=== PATIENT | female | born 1995 | race Caucasian/White ===

== ENCOUNTER → 2024-08-14 | Outpatient (CLI) | payer MEDICAID, SELFPAY ==
[2024-08-17 21:06] LABS: Chlamydia By Nucleic Acid AMP Negative (Negative); Gonococcus By Nucleic Acid AMP Negative (Negative)
[2024-08-21 12:45] LABS: HPV Reflexed? NOT INDICATED
== END | disposition home or self-care (01) ==
LOC: LABSPEC 16:07
PROVIDERS: Referring Provider Obstetrics & Gynecology; Visit Provider Obstetrics & Gynecology
DX: O09.90 Supervision of high risk pregnancy, unspecified, unspecified trimester (principal); Z12.4 Encounter for screening for malignant neoplasm of cervix; Z3A.00 Weeks of gestation of pregnancy not specified
CPT/HCPCS: 87086; 87088; 87491; 87591; 88175; G0145

== ENCOUNTER → 2024-08-27 | Outpatient (CLI) | payer MEDICAID, SELFPAY ==
[2024-08-27 17:23] LABS: Absolute Lymphocyte Count 1.96 X10^3/uL (0.83-4.51); Absolute Neutrophil Count 8.1 X10^3/uL (2.0-7.7); Basophil# 0.06 X10^3/uL; Basophil% 0.5 % (0-1); Eosinophil# 0.19 X10^3/uL; Eosinophils% 1.7 % (0-5); Hemoglobin 12.1 g/dL (12.0-15.0); Lymphocyte # 1.96 X10^3/ul (0.83-4.51); Lymphocyte % 17.9 % (19-41); Mean Corp Hgb Conc 32.7 g/dL (32-36); Mean Corpuscular Hgb 29.4 pg (27.0-32.0); Mean Corpuscular Volume 89.8 fL (81-99); Mean Platelet Vol. 9.6 fl (6.2-12.0); Monocyte# 0.65 X10^3/uL; Monocyte% 5.9 % (0-10); NRBC Flagged by Analyzer 0 % (0-5); Neutrophil # 8.05 X10^3/uL (2.7-7.7); Neutrophil % 73.5 % (47-70); Platelet Count 339 K/mm3 (150-450); RBC Distribution Width CV 13.3 % (11.6-14.6); RBC Distribution Width SD 43.9 fl (35.1-43.9); Red Blood Count 4.12 M/mm3 (4.2-5.4)
[2024-08-27 17:30] LABS: ALB/GLOB Ratio 1.1 RATIO (0.9-2.4); AST(SGOT) 12 U/L (15-37); Alanine Aminotransfer ALT/SGPT 14 U/L (13-56); Albumin, Serum 3.6 g/dL (3.2-5.0); Alkaline Phosphatase 62 U/L (45-117); Anion Gap 7 (5-15); BUN 7 mg/dL (7-18); BUN/Creat Ratio 13.3 RATIO (10-20); Chloride 104 mmol/L (98-107); Creatinine, Serum 0.53 mg/dL (0.55-1.02); EST Glomerular Filtration Rate 147 mL/min (>60); Est Glom Filt Rate - Afr Amer 178 mL/min (>60); Globulin 3.4 g/dL (2.2-4.2); Glucose 93 mg/dL (74-106); Potassium 3.6 mmol/L (3.5-5.1); Sodium Level 137 mmol/L (136-145)
[2024-08-27 17:38] LABS: Protein, Urine (Random) 14.5 mg/dL (<11.9); Protein:Creat Ratio 141 mg/g CRE (0-200)
[2024-08-27 18:13] LABS: HIV - WCH Non-Reactive (Nonreactive); Hepatitis B Surface Antigen Non-Reactive (Nonreactive); Hepatitis C Antibody Non-Reactive (Nonreactive); Rubella IgG Reactive (Nonreactive); Syphilis Antibodies Non-reactive
== END | disposition home or self-care (01) ==
LOC: BWCLAB 15:24
PROVIDERS: Obstetrics & Gynecology; Referring Provider Advanced Practice Midwife; Visit Provider Advanced Practice Midwife
DX: O09.90 Supervision of high risk pregnancy, unspecified, unspecified trimester (principal); Z3A.00 Weeks of gestation of pregnancy not specified; Z87.59 Personal history of other complications of pregnancy, childbirth and the puerperium
CPT/HCPCS: 36415; 80053; 82570; 84156; 85025; 86703; 86762; 86780; 86803; 86850; 86900; 86901; 87340

== ENCOUNTER → 2024-09-11 | Outpatient (CLI) | payer MEDICAID, SELFPAY ==
[2024-09-11 14:24] LABS: Protein, Urine (Random) 10.6 mg/dL (0.0-12.0); Protein:Creat Ratio 123 mg/g CRE (0-200)
== END | disposition home or self-care (01) ==
LOC: LABSPEC 10:22
PROVIDERS: Referring Provider Advanced Practice Midwife; Visit Provider Advanced Practice Midwife
DX: Z34.82 Encounter for supervision of other normal pregnancy, second trimester (principal); Z87.59 Personal history of other complications of pregnancy, childbirth and the puerperium
CPT/HCPCS: 36415; 82570; 84156

== ENCOUNTER → 2024-11-25 | Outpatient (CLI) | payer MEDICAID, SELFPAY | END | disposition home or self-care (01) | LOC: BWCLAB 15:43 | PROVIDERS: Referring Provider Obstetrics & Gynecology; Visit Provider Obstetrics & Gynecology | DX: Z20.828 Contact with and (suspected) exposure to other viral communicable diseases (principal) | CPT/HCPCS: 36415; 86747 ==

== ENCOUNTER → 2024-12-23 | Outpatient (CLI) | payer MEDICAID, SELFPAY ==
[2024-12-23 13:25] LABS: Absolute Lymphocyte Count 1.87 X10^3/uL (0.83-4.51); Absolute Neutrophil Count 10.9 X10^3/uL (2.0-7.7); Basophil# 0.05 X10^3/uL; Basophil% 0.4 % (0-1); Eosinophil# 0.12 X10^3/uL; Eosinophils% 0.9 % (0-5); Hematocrit 30.4 % (37-47); Hemoglobin 10.3 g/dL (12.0-15.0); Lymphocyte # 1.87 X10^3/ul (0.83-4.51); Lymphocyte % 13.7 % (19-41); Mean Corp Hgb Conc 33.9 g/dL (32-36); Mean Corpuscular Volume 91.6 fL (81-99); Mean Platelet Vol. 9.6 fl (6.2-12.0); Monocyte# 0.66 X10^3/uL; Monocyte% 4.8 % (0-10); NRBC Flagged by Analyzer 0 % (0-5); Neutrophil # 10.85 X10^3/uL (2.7-7.7); Neutrophil % 79.4 % (47-70); Platelet Count 338 K/mm3 (150-450); RBC Distribution Width CV 13.3 % (11.6-14.6); RBC Distribution Width SD 44.3 fl (35.1-43.9); Red Blood Count 3.32 M/mm3 (4.2-5.4); White Blood Count 13.7 K/mm3 (4.4-11.0)
[2024-12-23 15:01] LABS: Glucose Challenge Gest 1H 50g 116 mg/dL (70-140); HIV Nonreactive (Nonreactive); Syphilis Antibodies Nonreactive (Nonreactive)
== END | disposition home or self-care (01) ==
PROVIDERS: Nurse Practitioner Women's Health; Referring Provider Obstetrics & Gynecology; Visit Provider Obstetrics & Gynecology
DX: O09.90 Supervision of high risk pregnancy, unspecified, unspecified trimester (principal); O99.891 Other specified diseases and conditions complicating pregnancy; R10.11 Right upper quadrant pain; Z13.1 Encounter for screening for diabetes mellitus; Z3A.00 Weeks of gestation of pregnancy not specified
CPT/HCPCS: 36415; 82950; 85025; 86703; 86780

== ENCOUNTER → 2025-02-26 | Outpatient (CLI) | payer MEDICAID, SELFPAY | END | disposition home or self-care (01) | LOC: LABSPEC 16:06 | PROVIDERS: Referring Provider Registered Nurse; Visit Provider Registered Nurse | DX: O09.93 Supervision of high risk pregnancy, unspecified, third trimester (principal); Z3A.00 Weeks of gestation of pregnancy not specified | CPT/HCPCS: 87081 ==

== ENCOUNTER 2025-03-18 03:31 | Inpatient (IN) | payer MEDICAID, SELFPAY ==
[2025-03-18] VITALS (59 sets, daily range): BP systolic 109–134; BP diastolic 55–85; PULSE 75–155; RESP 16–18; TEMP 36.2–36.6; O2SAT 92–100; BMI 32.8
--- OUTSIDE RECORDS SUMMARY | 2025-03-18 03:02 | XMS RPT_ITS | CCD ---
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 Role Phone Kannan Briscoe Unavailable Unavailable Kannan Briscoe Unavailable Unavailable [facility] Unavailable Unavailable [facility] Unavailable Unavailable LANEBREA Williamson Attending Unavailable LANEBREA Primary Care Unavailable LANEBREA Admitting Unavailable LANE, BREA Primary Care Unavailable LANEBREA Attending Unavailable LANE, BREA Referring Unavailable LANE, BREA Primary Care Unavailable Lane Brea EASTMAN Primary Care Provider Aster Frank Unavailable Unavailable Unavailable Unavailable Unavailable Aster Frank Unavailable Unavailable Required, No Pcp Unavailable Unavailable Scottie Umanzor Unavailable Unavailable Ev Mccartney Unavailable Unavailable Otoniel, Dr. Aster Schreiber Primary Care Unavailabl e Sterling, Dr. Aster Schreiber Attending Unavailabl e Otoniel, Dr. Aster Schreiber Referring Unavailabl e Sterling, Dr. Aster Schreiber Primary Care UnavailMD EV Joe Admitting Unava ilable MD EV MCCARTNEY Referring Unava ilable Sterling, Dr. Aster Schreiber Attending Unavailabl e Otoniel, Dr. Aster Schreiber Primary Care Unavailabl e Sterling, Dr. Aster Schreiber Attending Unavailabl e Sterling, Dr. Aster Schreiber Referring Unavailabl e Sterling, Dr. Aster Schreiber Primary Care UnavailMD EV Joe Attending Unava ilable MD EV MCCARTNEY Referring Unava ilable Sterling, Dr. Aster Schreiber Primary Care Unavailabl e Noé, Dr. Scottie Bay Attending Unavaila ble Otoniel, Dr. Aster Schreiber Referring Unavailabl e Otoniel, Dr. Aster Schreiber Primary Care Unavailabl e Sterling, Dr. Aster Schreiber Attending Unavailabl e Orzech, Monika Luis Attending Unavailable Rad Denney Attending Unavailable Otoniel, Dr. Aster Schreiber Attending Unavailabl e Sterling, Dr. Aster Schreiber Referring Unavailabl e Sterling, Dr. Aster Schreiber Primary Care Unavailabl MD EV Dominguez Attending Unava ilable Otoniel, Dr. Aster Schreiber Primary Care Unavailabl hill MCCARTNEY, MD EV PRUITT Referring Unava ilable Otoniel, Dr. Aster Schreiber Attending Unavailabl e Otoniel, Dr. Aster Schreiber Referring Unavailabl e Otoniel, Dr. Aster Schreiber Primary Care Unavailabl e Sterling, Dr. Aster Schreiber Attending Unavailabl e Sterling, Dr. Aster Schreiber Referring Unavailabl e Sterling, Dr. Aster Schreiber Primary Care Unavailabl MD EV Dominguez Attending Unava ilable Sterling, Dr. Aster Schreiber Primary Care Unavailabl MD EV Dominguez Attending Unava ilable MCCARTNEYMD EV POLLARD Referring Unava ilable Sterling, Dr. Aster Schreiber Attending Unavailabl e Sterling, Dr. Aster Schreiber Primary Care Unavailabl e Sterling, Dr. Aster Schreiber Referring Unavailabl e Sterling, Dr. Aster Schreiber Attending Unavailabl e Sterling, Dr. Aster Schreiber Primary Care Unavailabl e Sterling, Dr. Aster Schreiber Attending Unavailabl e Otoniel, Dr. Aster Schreiber Primary Care Unavailabl e Sterling, Dr. Aster Schreiber Referring Unavailabl e Sterling, Dr. Aster Schreiber Attending Unavailabl e Sterling, Dr. Aster Schreiber Primary Care Unavailabl e Sterling, Dr. Aster Schreiber Referring Unavailabl e Sterling, Dr. Aster Schreiber Attending Unavailabl e Otoniel, Dr. Aster Schreiber Primary Care Unavailabl e Sterling, Dr. Aster Schreiber Referring Unavailabl e Otoniel, Dr. Aster Schreiber Attending Unavailabl e Sterling, Dr. Aster Schreiber Primary Care Unavailabl e Sterling, Dr. Aster Schreiber Referring Unavailabl e Otoniel, Dr. Aster Schreiber Attending Unavailabl e Otoniel, Dr. Aster Schreiber Referring Unavailabl e Sterling, Dr. Aster Schreiber Primary Care Unavailabl e Sterling, Dr. Aster Schreiber Primary Care Unavailabl e MD MARIA LUISA LEUNG Referring Unavail able MD MARIA LUISA LEUNG Attending Unavail able LANEBREA Primary Care Unavailable KAREN MARTIN Attending Unavailable LANE, BREA Primary Care Unavailable EILEEN AVILA Attending Unava ilable Otoniel Kassie GALICIAalex Maguire Primary Care Provider [phone] ASTER FRANK A Primary Care Unavailable PADMINI SOSA Attending Unavailable Olive Day RN Attending Provider Unavailabl e Dr. Thelma Taveras MD Attending Provider [phone] NOT, DEFINED Primary Care Provider Unavailabl e Dr. Thelma Taveras MD Referring Provider [phone] Yao Brambila CNM Attending Provider [phone] Yao Brambila CNM Referring Provider [phone]) NOT, DEFINED Referring Provider Unavailable Dr. Gem Ross DO Attending Provider Dr. Gem Ross DO Referring Provider Austin CRABTREE-Andre Sheehan Attending Provider 1330 ANDRE AVILA Referring Unavailable NOT, DEFINED Primary Care Provider Unavailabl e Dr. Thelma Taveras MD Attending Provider Dr. Thelma Taveras MD Referring Provider Yao Brambila CNM Attending Provider [phone]) NOT, DEFINED Primary Care Provider Unavailabl e Yao Brambila CNM Referring Provider [phone] NOT, DEFINED Primary Care Provider Unavailabl e NOT, DEFINED Referring Provider Unavailable Yao Brambila CNM Attending Provider [phone] YAO BRAMBILA Referring Unavailable ATUL MOHAN Attending Unavailable SCOTTIE ANDREA Primary Care Unavailable DESMOND COHEN Attending Unavailable YAO BRAMBILA Referring Unavailable SCOTTIE ANDREA Primary Care Unavailable YAO BRAMBILA Referring Unavailable SCOTTIE ANDREA Primary Care Unavailable BOB SALCIDO Attending Unavailable DESMOND COHEN Referring Unavailable RONNA MUNSON Attending Unavailable EMRE, SCOTTIE Primary Care Unavailable NOT, DEFINED Primary Care Provider Unavailabl e NOT, DEFINED Referring Provider Unavailable Dr. Gem Ross DO Attending Provider Richard CNM, Krystyna Attending Provider [phone] Richard CNM, Krystyna Referring Provider [phone] NOT, DEFINED Primary Care Provider Unavailabl e NOT, DEFINED Referring Provider Unavailable Kosta CNM, Yao Attending Provider Thelma Taveras Referring Unavailable MarcanthonyArronon Attending Unavailable Ramos, Krystyna Referring Unavailable Ramos, Krystyna Attending Unavailable NOT, DEFINED Referring Unavailable MarcanthonyArronon Attending Unavailable NOT, DEFINED Primary Care Unavailable NOT, DEFINED Referring Unavailable Yao Brambila Attending Unavailable NOT, DEFINED Primary Care Unavailable NOT, DEFINED Referring Unavailable Guthrie, Molly Attending Unavailable NOT, DEFINED Primary Care Unavailable Yao Brambila Attending Unavailable Yao Brambila Referring Unavailable NOT, DEFINED Primary Care Unavailable Marcanthirma, Thelma Referring Unavailable Marcanthirma, Thelma Attending Unavailable NOT, DEFINED Primary Care Unavailable Yao Brambila Attending Unavailable Yao Brambila Referring Unavailable MarcanthThelma solis Attending Unavailable Krystyna Ramos Attending Unavailable NOT, DEFINED Primary Care Unavailable AustinDayney Referring Unavailable Guthrie, Molly Attending Unavailable Gem Ross Referring Unavailabl e Gem Ross Attending Unavailabl e NOT, DEFINED Primary Care Unavailable Yao Brambila Attending Unavailable Guthrie, Molly Attending Unavailable NOT, DEFINED Referring Unavailable Guthrie, Molly Attending Unavailable NOT, DEFINED Referring Unavailable Yao Brambila Attending Unavailable aYo Brambila Attending Unavailable NOT, DEFINED Referring Unavailable NOT, DEFINED Primary Care Unavailable NOT, DEFINED Referring Unavailable Yao Brambila Attending Unavailable Gem Ross Attending Unavailabl e NOT, DEFINED Primary Care Unavailable NOT, DEFINED Referring Unavailable Yao Brambila Attending Unavailable Olive Day Attending Unavailable Thelma Taveras Attending Unavailable Medications Current Medications Medication Drug Class(es) Dates Sig (Normalized) Sig (Original) docosahexaenoic acid 200 mg oral capsule (14 sources) Start: 07-31-2024 Docosahexaenoic Acid ( Dha) 200 mg capsule Active mg PO July 31, 2024 1:00am polymyxin b 97806 unt/ml / trimethoprim 1 mg/ml ophthalmic solution (1 source) Dihydrofolate Reductase Inhibitor Antibacterial, Polymyxin-class Antibacterial Start: 06-26-2022 End: 07-03-2022 polymyxin B-trimethoprim Opth Radha 1 drop(s), OPTH, q3hr for 7 day(s), 10 mL, Refill(s) 0, [id number] Start Date: 06/26/22 Stop Date: 07/03/22 Status: Ordered 1 oral capsule (1 source) 1 oral capsule ; orally once a day Quantity: 0 Refills: 0 Ordered: 15-Jan-2022 Padmini Sarkar Generic Substitution Allowed vitamin with Ca-Iron-FA 27-1 mg Tab (4 sources) take 1 tablet by mouth once daily vitamin with Ca-Iron-FA 27-1 mg Tab Take 1 tablet by mouth daily . 0 Active Completed/Discontinued Medications Medication Drug Class(es) Dates Sig (Normalized) Sig (Original) doxylamine succinate 25 mg oral tablet (20 sources) Start: 08-25-2021 take 1 tablet by mouth at bedtime Unisom SleepTabs 25 MG Oral Tablet TAKE 1 TABLET AT BEDTIME. Quantity: 30 Refills: 4 Ordered: 25-Aug-2021 Aster Frank DO Start : 25-Aug-2021 Active ferrous sulfate 325 mg oral tablet (2 sources) Start: 05-08-2022 take 1 tablet by mouth twice daily Ferrous Sulfate 325 (65 Fe) MG Oral Tablet take 1 tablet by mouth twice a day Quantity: 60 Refills: 0 Ordered: 08-May-2022 [id number] DO, Brett Start : 08-May-2022 Active ibuprofen 800 mg oral tablet (3 sources) Nonsteroidal Anti-inflammatory Drug Ibuprofen 800 MG Oral Tablet Quantity: 0 Refills: 0 Ordered: 13-Apr-2022 DO Active Iron (3 sources) Iron TABS Quantity: 0 Refills: 0 Ordered: 13-Apr-2022 DO Active ondansetron 4 mg oral tablet (20 sources) Serotonin-3 Receptor Antagonist Start: 08-19-2024 End: 01-01-2025 take 1 tablet by mouth every four hours Ondansetron Hcl 4 mg tablet Discontinued 4 mg PO Q4H 60 3 September 08, 2024 3:43pm October 08, 2024 3:24pm Start: 09-04-2021 take 1 tablet by joe th every six hours Ondansetron HCl - 4 MG Oral Tablet TAKE 1 TABLET Every 6 hours PRN nausea Quantity: 30 Refills: 1 Ordered: 04-Sep-2021 Aster Frank DO Start : 04-Sep-2021 Active Vitamin Plus Low Iron 27-1 MG Oral Tablet (20 sources) Start: 01-26-2022 take 1 tablet by mouth once daily Vitamin Plus Low Iron 27-1 MG Oral Tablet TAKE 1 TABLET DAILY. Quantity: 30 Refills: 10 Ordered: 26-Jan-2022 Ev Mccartney DO Start : 26-Jan-2022 Active Start: 08-25-2021 take 1 tablet by joe th once daily Vitamin Plus Low Iron 27-1 MG Oral Tablet TAKE 1 TABLET DAILY. Quantity: 30 Refills: 9 Ordered: 25-Aug-2021 Aster Frank DO Start : 25-Aug-2021 Active promethazine hydrochloride 25 mg oral tablet (15 sources) Phenothiazine Start: 10-02-2021 take 1 tablet by mouth every six hours Promethazine HCl - 25 MG Oral Tablet TAKE 1 TABLET EVERY 6 HOURS NEEDED FOR NAUSEA. Quantity: 20 Refills: 3 Ordered: 02-Oct-2021 Aster Frank DO Start : 02-Oct-2021 Active Stool Softener TABS (3 sources) Stool Softener T ABS Quantity: 0 Refills: 0 Ordered: 13-Apr-2022 DO Active vitamin b6 50 mg oral tablet (20 sources) Start: 08-25-2021 take 1 tablet by mouth twice daily B-6 50 MG Oral Tablet TAKE 1 TABLET TWICE DAILY. Quantity: 60 Refills: 6 Ordered: 25-Aug-2021 Aster Frank DO Start : 25-Aug-2021 Active Problems Active Problems Problem Classification Problem Date Documented Date Episodic/Chronic Abdominal pain (20 sources) Lower abdominal pain, unspecified; Translations: [Right upper quadrant pain] Onset: 01-15-2022 12-02-2024 Episodic Comment on above: GB US and labs Asthma (20 sources) Asthma; Translations: [Unspecified asthma, uncomplicated] Onset: 03-10-2025 07-31-2024 Chronic Comment on above: Childhood Headache; including migraine (20 sources) Migraine; Translations: [Migraine, unspecified, without mention of intractable migraine without mention of status migrainosus] Chronic Immunizations and screening for infectious disease (20 sources) Contact with and (suspected) exposure to other viral communicable diseases; Translations: [Exposure to parvovirus] Onset: 03-10-2025 11-23-2024 Episodic Comment on above: immunity. No new vir us Inflammation; infection of eye (except that caused by tuberculosis or sexually transmitteddisease) (1 source) Conjunctivitis; Translations: [Unspecified conjunctivitis] Onset: 06-26-2022 Episodic Influenza (1 source) Influenza due to Influenza A virus; Translations: [Influenza due to other identified influenza virus with other respiratory manifestations] 07-29-2024 Episodic Lymphadenitis (8 sources) Anterior cervical lymphadenopathy; Translations: [Localized enlarged lymph nodes] Onset: 04-24-2021 Episodic Menstrual disorders (3 sources) Secondary amenorrhea; Translations: [Absence of menstruation] Chronic Nonmalignant breast conditions (2 sources) Mastitis without abscess; Translations: [Mastitis without abscess] Onset: 03-28-2023 Episodic Nonspecific chest pain (8 sources) Chest pain; Translations: [Chest pain, unspecified] Onset: 09-14-2022 09-14-2022 Episodic Comment on above: CHEST PAIN Other complications of ; puerperium affecting management of mother (1 source) Obesity complicating childbirth; Translations: [Obesity complicating childbirth] Onset: 04-10-2022 Chronic Other complications of ; puerperium affecting management of mother (1 source) Anemia of the puerperium; Translations: [Anemia of the puerperium] Onset: 04-10-2022 Chronic Other complications of (20 sources) Anemia of ; Translations: [Anemia complicating , unspecified trimester] 12-24-2024 Chronic Comment on above: PO iron PO iron:was not taki ng vitamin due to nausea. Will take Fe in Am and a gummy PNV in evening. Other complications of (1 source) Anemia complicating , third trimester; Translations: [Anemia complicating , third trimester] Onset: 03-10-2025 Chronic Other complications of (20 sources) Hyperemesis gravidarum; Translations: [Unspecified vomiting of , antepartum condition or complication] Episodic Other complications of (20 sources) High risk ; Translations: [Supervision of high risk , unspecified, unspecified trimester] 07-31-2024 Episodic Comment on above: , PERLA 03/17/25, PC: Kia, : Markos [id number], PERLA 5, PC: Kia, : Markos [id number], PERLA 5, Kamden Boy PC: Kia, : Markos Other complications of (20 sources) ultrasound scan abnormal; Translations: [Abnormal ultrasonic finding on screening of mother] 11-19-2024 Episodic 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 follow up growth at 32 weeks. Other complications of (1 source) Supervision of high risk , unspecified, third trimester; Translations: [Supervision of high risk , unspecified, third trimester] Onset: 03-10-2025 Episodic Other complications of (1 source) Abnormal ultrasonic finding on screening of mother; Translations: [Abnormal ultrasonic finding on screening of mother] Onset: 03-10-2025 Episodic Other complications of (1 source) Supervision of high risk , unspecified, unspecified trimester; Translations: [Supervision of high risk , unspecified, unspecified trimester] Onset: 12-28-2024 Episodic Other complications of (1 source) Supervision of high risk , unspecified, second trimester; Translations: [Supervision of high risk , unspecified, second trimester] Onset: 12-23-2024 Episodic Other hematologic conditions (2 sources) History of anemia; Translations: [Personal history of diseases of blood and blood-forming organs] Episodic Other lower respiratory disease (20 sources) H/O: asthma; Translations: [Personal history of other diseases of respiratory system] Episodic Other and delivery including normal (20 sources) Urine test positive; Translations: [ examination or test, positive result] Onset: 11-24-2021 Episodic Comment on above: NIPT low risk NIPT low risk, anato my reviewed GBS negative. NIPT l ow risk, anatomy reviewed Other screening for suspected conditions (not mental disorders or infectious disease) (20 sources) Patient encounter status; Translations: [Screening for malignant neoplasms of cervix] Episodic Comment on above: 02/24/19 NIL; Other upper respiratory disease (2 sources) Pain in throat; Translations: [Pain in throat] Onset: 09-14-2022 Episodic Other upper respiratory infections (7 sources) Common cold; Translations: [Acute nasopharyngitis [common cold]] Onset: 06-26-2022 Episodic Residual codes; unclassified (2 sources) Gestation period, 19 weeks; Translations: [ state, incidental] Episodic Residual codes; unclassified (2 sources) Gestation period, 23 weeks; Translations: [ state, incidental] Episodic Residual codes; unclassified (1 source) Gestation period, 30 weeks; Translations: [ state, incidental] Episodic Residual codes; unclassified (1 source) Gestation period, 32 weeks; Translations: [ state, incidental] Episodic Residual codes; unclassified (1 source) Gestation period, 34 weeks; Translations: [ state, incidental] Episodic Residual codes; unclassified (1 source) Gestation period, 35 weeks; Translations: [ state, incidental] Episodic Residual codes; unclassified (3 sources) Gestation period, 36 weeks; Translations: [ state, incidental] Episodic Residual codes; unclassified (4 sources) Gestation period, 38 weeks; Translations: [ state, incidental] Episodic Residual codes; unclassified (1 source) Family history of ischemic heart disease and other diseases of the circulatory system; Translations: [Family hx of ischem heart dis and oth dis of the [facility]] Onset: 09-14-2022 Episodic Residual codes; unclassified (20 sources) History of gestational hypertension; Translations: [Personal history of other complications of , childbirth and the puerperium] 08-14-2024 Episodic Comment on above: baby ASA recommended . baseline labs. Residual codes; unclassified (1 source) Personal history of other complications of , childbirth and the puerperium; Translations: [Personal history of other complications of , childbirth and the puerperium] Onset: 03-10-2025 Episodic Residual codes; unclassified (1 source) 39 weeks gestation of ; Translations: [39 weeks gestation of ] Onset: 03-10-2025 Episodic Residual codes; unclassified (1 source) 28 weeks gestation of ; Translations: [28 weeks gestation of ] Onset: 12-23-2024 Episodic Unclassified (1 source) Patient encounter procedure 05-18-2022 Comment on above: YEARLY Unclassified (1 source) Contact with and (suspected) exposure to COVID-19; Translations: [Contact with and (suspected) exposure to COVID-19] Onset: 09-14-2022 Unclassified (2 sources) Cough, unspecified; Translations: [Cough, unspecified] Onset: 09-14-2022 Unclassified (1 source) Oth diseases and conditions complicating ; Translations: [Oth diseases and conditions complicating ] Onset: 01-15-2022 Unclassified (1 source) Low back pain, unspecified; Translations: [Low back pain, unspecified] Onset: 01-15-2022 Unclassified (1 source) Mother currently 10-10-2022 Past or Other Problems Problem Classification Problem Date Documented Date Episodic/Chronic Acute posthemorrhagic anemia (1 source) Acute posthemorrhagic anemia; Translations: [Acute posthemorrhagic anemia] Onset: 04-10-2022 Episodic distress and abnormal forces of labor (2 sources) Abnormality of forces of labor, unspecified; Translations: [Abnormality of forces of labor, unspecified] Onset: 04-03-2022 Episodic Hypertension complicating ; childbirth and the puerperium (6 sources) -induced hypertension; Translations: [Transient hypertension of , unspecified as to episode of care or not applicable] Onset: 04-08-2022 Episodic Nausea and vomiting (2 sources) Nausea with vomiting, unspecified; Translations: [Nausea with vomiting, unspecified] Onset: 01-15-2022 Episodic OB-related trauma to perineum and vulva (1 source) Second degree perineal laceration during delivery; Translations: [Second degree perineal laceration during delivery] Onset: 04-10-2022 Episodic Other complications of ; puerperium affecting management of mother (1 source) Streptococcus B carrier state complicating childbirth; Translations: [Streptococcus B carrier state complicating childbirth] Onset: 04-10-2022 Episodic Other complications of ; puerperium affecting management of mother (1 source) Abnormality in heart rate and rhythm complicating labor and delivery; Translations: [Abnlt in heart rate and rhythm comp labor and delivery] Onset: 04-10-2022 Episodic Other complications of (2 sources) Other specified related conditions, second trimester; Translations: [Oth related conditions, second trimester] Onset: 01-15-2022 Episodic Residual codes; unclassified (5 sources) Gestation period, 10 weeks; Translations: [ state, incidental] Onset: 09-22-2021 Episodic Residual codes; unclassified (2 sources) Gestation period, 15 weeks; Translations: [ state, incidental] Onset: 11-24-2021 Episodic Residual codes; unclassified (1 source) 38 weeks gestation of ; Translations: [38 weeks gestation of ] Onset: 04-10-2022 Episodic Residual codes; unclassified (1 source) 37 weeks gestation of ; Translations: [37 weeks gestation of ] Onset: 04-03-2022 Episodic Residual codes; unclassified (1 source) 26 weeks gestation of ; Translations: [26 weeks gestation of ] Onset: 01-15-2022 Episodic Residual codes; unclassified (2 sources) 15 weeks gestation of ; Translations: [15 weeks gestation of ] Onset: 11-24-2021 Episodic Residual codes; unclassified (1 source) 19 weeks gestation of ; Translations: [19 weeks gestation of ] Onset: 11-24-2021 Episodic Residual codes; unclassified (1 source) 10 weeks gestation of ; Translations: [10 weeks gestation of ] Onset: 09-22-2021 Episodic Residual codes; unclassified (1 source) 25 weeks gestation of ; Translations: [25 weeks gestation of ] Onset: 12-02-2024 Episodic Residual codes; unclassified (1 source) 21 weeks gestation of ; Translations: [21 weeks gestation of ] Onset: 11-06-2024 Episodic Residual codes; unclassified (1 source) 13 weeks gestation of ; Translations: [13 weeks gestation of ] Onset: 09-24-2024 Episodic Residual codes; unclassified (1 source) 9 weeks gestation of ; Translations: [9 weeks gestation of ] Onset: 08-14-2024 Episodic Unclassified (20 sources) Finding of menstrual bleeding; Translations: [Menstruation] Comment on above: AGE 17; Unclassified (14 sources) History of induced onset of labor 08-14-2024 Comment on above: 37week induction d/t high blood pressure @ end of Results Test Name Value Interpretation Reference Range Facility Senior Account Representative Office Visit Reporton 03-10-2025 Senior Account Representative Office Visit Report [facility] [address] [place] [address], [address] [place] [address] OFFICE VISIT Date of Service: 03/10/25 MR#: [id number] Acct: [id number] Name: NISSA CRAIN Rep #: [id number] : 1995 Provider: MARIKA Eugene ams Age/Sex: 30/F [place] [facility] [place]: [place] Intake Vital Signs 02/01/25 14:55 03/03/25 14:51 03/10/25 14:23 03/10/25 14:27 Height 5 ft 3 in 5 ft 3 in 5 ft 3 in 5 ft 3 in Weight: 167 lb 1 oz BMI 29.5 BP 129/85 H Intake Visit Reasons: 39wk ob 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 Is patient in pain?: No Allergies No Known Allergies Allergy (Verified 03/10/25 14:22) Medications ???Medication ???Instructions ???Recorded ???Confirmed ???Type docosahexaenoic acid 200 mg mg PO 07/31/24 03/10/25 History capsule ( DHA) ondansetron HCl 4 mg tablet 4 mg PO Q4H #60 tabs 01/01/2509/29 Rx Last Menstrual Period: 06/10/24 Zika: Zika virus screening: Negative : No PFSH PFSH Family History Grandfather Stomach cancer Grandmother Breast cancer Social History adopted: No household members: spouse, children and other details: Pt's youger brother number of children: 1 current occupation: [employer] current occupational exposures/hazards: No pets and animals: Yes pets and animals: dog(s) history of recent travel: No sexually active: Yes Smoking Status: Never smoker alcohol intake: current alcohol intake frequency: holidays/special occasions only details: Not while substance use type: does not use well-balanced diet: daily or most days caffeine: Yes Type: carbonated beverages eating out: 1-3 times/week during the past year weight has: remained stable what type of physical activity do you participate in: none antoni/faith: None seatbelt use: always do you feel safe at home: Yes additional social history: : Martin Williamson Us History 2 Elective abortions Hx Para 1 Spontaneous abortions 0 Hx # Term Pregnancies 1 Ectopic pregnancies Hx # Pregnancies Multiple births # of living children 1 Past Pregnancies Del. Date Name GA/Weeks Outcome Route Bth Weight Infant Gen Labor Lgth Anesthesia Del Locatn Provider FOB 04/08/22 Kia 37 live - full term 6lbs 9oz Male epidural Samariti an - [place] Delivery Date: 04/08/22 Last Updated by: Olive Day RN Induced for high blood pressure HPI 39wk ob Details: NISSA CRAIN is a 30 year old who presents for routine OB visit. OB Visit PERLA Calculator Estimated Delivery Date Method Current WG Current Estimate 03/17/25 LMP (Certain) 39w 0d Other Estimates 03/18/25 Ultrasound #1 38w 6d Expected Delivery Route/Plan Labor Preferences- CB/BF classes: no labor support person: Markos labor intervention preferences: [] pain management options preferred: epidural cut cord/dad catch: cord : yes PP control planned: discussed discussed possible routes of delivery and associated risks: [] special requests: [] Specific Issue/Plans Covid status: [] Flu vaccine: [] Tdap vaccine: declines Rhogam: na LARC form signed: yes Problem list reviewed and updated with the most current plan of care details and appropriate orders placed. Relevant counseling for the gestational age provided. Continue routine care and follow up unless otherwise noted in visit notes/problem list details Initial Weight: Not Recorded Date -???-???-???-???-???-???- ???-???-???-???-???-???- EGA Weight BP Urine Prot -???-???-???-???-???-???- ???-???-???-???-???-???- Glucose FHR FuHt Pres Dilation -???-???-???-???-???-???- ???-???-???-???-???-???- Effaced St Visit Note 08/14/24 -???-???-???-???-???-???- ???-???-???-???-???-???- 9w 2d 141 lb 2 oz 126/74 -???-???-???-???-???-???- ???-???-???-???-???-???- 179 -???-???-???-???-???-???- ???-???-???-???-???-???- SM- CRL 9w1d cons with lmp 09/11/24 -???-???-???-???-???-???- ???-???-???-???-???-???- 13w 2d 143 lb 6 oz 119/78 -???-???-???-???-???-???- ???-???-???-???-???-???- 159 -???-???-???-???-???-???- ???-???-???-???-???-???- KW- no vb/cr amping. US ordered. encouraged to take PNV at night KW- no vb/cramping. US ordered. en couraged to take PNV at night. NIPT today 10/08/24 -???-???-???-???-???-???- ???-???-???-???-???-???- 17w 1d 146 lb 6 oz 111/74 Negative -???-???-???-???-???-???- ???-???-???-???-???-???- Negative 153 -???-???-???-???-???-???- ???-???-???-???-???-???- JV- still laura ving nausea. zofran refilled. anatomy scan scheduled 10/2011/06/24 -???-???-???-???-???-???- ???-???-???-???-???-???- 21w 2d 150 lb 120/73 (more content not included)... Normal [facility] Laboratory - Chemistry and C hemistry - challengeOrdered By: Gem Molina on 03-03-2025 Glucose Ql (U) Negative [facility] Laboratory - UrinalysisOrder ed By: Gem Molina on 03-03-2025 Protein Ql (U) Negative [facility] Senior Account Representative Office Visit Reporton 03-03-2025 Senior Account Representative Office Visit Report [facility] [address], [address] [place] [address] OFFICE VISIT Date of Service: 03/03/25 MR#: [id number] Acct: [id number] Name: NISSA CRAIN Rep #: [id number] : 1995 Provider: STEFANIE huang Age/Sex: 30/F [place] [facility] [place]: Signed Intake Vital Signs 02/01/25 14:55 02/26/25 15:25 03/03/25 14:51 03/03/25 14:51 Height 5 ft 3 in 5 ft 3 in 5 ft 3 in 5 ft 3 in Weight: 166 lb 3 oz BMI 29.4 BP 131/87 H Intake Visit Reasons: 38 WK OB 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 Is patient in pain?: No Allergies No Known Allergies Allergy (Verified 03/03/25 14:51) Medications ???Medication ???Instructions ???Recorded ???Confirmed ???Type docosahexaenoic acid 200 mg mg PO 07/31/24 03/03/25 History capsule ( DHA) ondansetron HCl 4 mg tablet 4 mg PO Q4H #60 tabs 01/01/25 08/2 01/29 Rx Last Menstrual Period: 06/10/24 Zika: Zika virus screening: Negative : No PFSH PFSH Family History Grandfather Stomach cancer Grandmother Breast cancer Social History adopted: No household members: spouse, children and other details: Pt's madonnager brother number of children: 1 current occupation: [employer] current occupational exposures/hazards: No pets and animals: Yes pets and animals: dog(s) history of recent travel: No sexually active: Yes Smoking Status: Never smoker alcohol intake: current alcohol intake frequency: holidays/special occasions only details: Not while substance use type: does not use well-balanced diet: daily or most days caffeine: Yes Type: carbonated beverages eating out: 1-3 times/week during the past year weight has: remained stable what type of physical activity do you participate in: none antoni/faith: None seatbelt use: always do you feel safe at home: Yes additional social history: : [place] Us History 2 Elective abortions Hx Para 1 Spontaneous abortions 0 Hx # Term Pregnancies 1 Ectopic pregnancies Hx # Pregnancies Multiple births # of living children 1 Past Pregnancies Del. Date Name GA/Weeks Outcome Route Bth Weight Infant Gen Labor Lgth Anesthesia Del Locatn Provider FOB 04/08/22 Kia 37 live - full term 6lbs 9oz Male epidural Samariti an [facility] Delivery Date: 04/08/22 Last Updated by: Olive Day RN Induced for high blood pressure HPI 38 WK OB Details: NISSA CRAIN is a 30 year old who presents for routine OB visit. OB Visit PERLA Calculator Estimated Delivery Date Method Current WG Current Estimate 03/17/25 LMP (Certain) 38w 0d Other Estimates 03/18/25 Ultrasound #1 37w 6d Expected Delivery Route/Plan Labor Preferences- CB/BF classes: no labor support person: Markos labor intervention preferences: [] pain management options preferred: epidural cut cord/dad catch: cord : yes PP control planned: discussed discussed possible routes of delivery and associated risks: [] special requests: [] Specific Issue/Plans Covid status: [] Flu vaccine: [] Tdap vaccine: declines Rhogam: na LARC form signed: yes Problem list reviewed and updated with the most current plan of care details and appropriate orders placed. Relevant counseling for the gestational age provided. Continue routine care and follow up unless otherwise noted in visit notes/problem list details Initial Weight: Not Recorded Date -???-???-???-???-???-???- ???-???-???-???-???-???- EGA Weight BP Urine Prot -???-???-???-???-???-???- ???-???-???-???-???-???- Glucose FHR FuHt Pres Dilation -???-???-???-???-???-???- ???-???-???-???-???-???- Effaced St Visit Note 08/14/24 -???-???-???-???-???-???- ???-???-???-???-???-???- 9w 2d 141 lb 2 oz 126/74 -???-???-???-???-???-???- ???-???-???-???-???-???- 179 -???-???-???-???-???-???- ???-???-???-???-???-???- SM- CRL 9w1d cons with lmp 09/11/24 -???-???-???-???-???-???- ???-???-???-???-???-???- 13w 2d 143 lb 6 oz 119/78 -???-???-???-???-???-???- ???-???-???-???-???-???- 159 -???-???-???-???-???-???- ???-???-???-???-???-???- KW- no vb/cr amping. US ordered. encouraged to take PNV at night KW- no vb/cramping. US ordered. en couraged to take PNV at night. NIPT today 10/08/24 -???-???-???-???-???-???- ???-???-???-???-???-???- 17w 1d 146 lb 6 oz 111/74 Negative -???-???-???-???-???-???- ???-???-???-???-???-???- Negative 153 -???-???-???-???-???-???- ???-???-???-???-???-???- JV- still laura ving nausea. estefania refilled. anatomy scan scheduled 10/2011/06/24 -???-???-???-???-???-???- ???-???-???-???-???-???- 21w 2d 150 lb (more content not included)... Normal [facility] Rule out Beta Strep (Grp. B) on 02-28-2025 JOY Group B Beta Streptococcus is not isolated. Normal [facility] Comment on above: Performed By: #### M [id number] ####[facility] [id number] [place], [id number] Laboratory - Chemistry and C hemistry - challengeOrdered By: Krystyna Richard on 02-26-2025 Glucose Ql (U) Negative [facility] Laboratory - UrinalysisOrder ed By: Krystyna Richard on 02-26-2025 Protein Ql (U) Negative [facility] Senior Account Representative Office Visit Reporton 02-26-2025 Senior Account Representative Office Visit Report [facility] [address], [address] [place] [address] OFFICE VISIT Date of Service: 02/26/25 MR#: [id number] Acct: [id number] Name: NISSA CRAIN Rep #: [id number] : 1995 Provider: MARIKA hamm Age/Sex: 30/F [place] [facility] [place]: Signed Intake Vital Signs 02/01/25 14:55 02/15/25 15:37 02/26/25 15:25 Height 5 ft 3 in 5 ft 3 in 5 ft 3 in Weight: 167 lb 1 oz BMI 29.5 BP 132/87 H Intake Visit Reasons: 37 WK OB 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 Is patient in pain?: No Allergies No Known Allergies Allergy (Verified 02/26/25 15:27) Medications ???Medication ???Instructions ???Recorded ???Confirmed ???Type docosahexaenoic acid 200 mg mg PO 07/31/24 02/26/25 History capsule ( DHA) ondansetron HCl 4 mg tablet 4 mg PO Q4H #60 tabs 01/01/2502/06 Rx Last Menstrual Period: 06/10/24 Zika: Zika virus screening: Negative : No Have you fallen in the past year?: No PFSH PFSH Family History Grandfather Stomach cancer Grandmother Breast cancer Social History adopted: No household members: spouse, children and other details: Pt's youger brother number of children: 1 current occupation: [employer] current occupational exposures/hazards: No pets and animals: Yes pets and animals: dog(s) history of recent travel: No sexually active: Yes Smoking Status: Never smoker alcohol intake: current alcohol intake frequency: holidays/special occasions only details: Not while substance use type: does not use well-balanced diet: daily or most days caffeine: Yes Type: carbonated beverages eating out: 1-3 times/week during the past year weight has: remained stable what type of physical activity do you participate in: none antoni/faith: None seatbelt use: always do you feel safe at home: Yes additional social history: : [place] Us History 2 Elective abortions Hx Para 1 Spontaneous abortions 0 Hx # Term Pregnancies 1 Ectopic pregnancies Hx # Pregnancies Multiple births # of living children 1 Past Pregnancies Del. Date Name GA/Weeks Outcome Route Bth Weight Infant Gen Labor Lgth Anesthesia Del Locatn Provider FOB 04/08/22 Kia 37 live - full term 6lbs 9oz Male epidural Samariti an [facility] Delivery Date: 04/08/22 Last Updated by: Olive Day RN Induced for high blood pressure HPI 37 WK OB Details: NISSA CRAIN is a 30 year old who presents for routine OB visit. OB Visit PERLA Calculator Estimated Delivery Date Method Current WG Current Estimate 03/17/25 LMP (Certain) 37w 2d Other Estimates 03/18/25 Ultrasound #1 37w 1d Expected Delivery Route/Plan Labor Preferences- CB/BF classes: no labor support person: Markos labor intervention preferences: [] pain management options preferred: epidural cut cord/dad catch: cord : yes PP control planned: discussed discussed possible routes of delivery and associated risks: [] special requests: [] Specific Issue/Plans Covid status: [] Flu vaccine: [] Tdap vaccine: declines Rhogam: na LARC form signed: yes Problem list reviewed and updated with the most current plan of care details and appropriate orders placed. Relevant counseling for the gestational age provided. Continue routine care and follow up unless otherwise noted in visit notes/problem list details Initial Weight: Not Recorded Date -???-???-???-???-???-???- ???-???-???-???-???-???- EGA Weight BP Urine Prot -???-???-???-???-???-???- ???-???-???-???-???-???- Glucose FHR FuHt Pres Dilation -???-???-???-???-???-???- ???-???-???-???-???-???- Effaced St Visit Note 08/14/24 -???-???-???-???-???-???- ???-???-???-???-???-???- 9w 2d 141 lb 2 oz 126/74 -???-???-???-???-???-???- ???-???-???-???-???-???- 179 -???-???-???-???-???-???- ???-???-???-???-???-???- SM- CRL 9w1d cons with lmp 09/11/24 -???-???-???-???-???-???- ???-???-???-???-???-???- 13w 2d 143 lb 6 oz 119/78 -???-???-???-???-???-???- ???-???-???-???-???-???- 159 -???-???-???-???-???-???- ???-???-???-???-???-???- KW- no vb/cr amping. US ordered. encouraged to take PNV at night KW- no vb/cramping. US ordered. en couraged to take PNV at night. NIPT today 10/08/24 -???-???-???-???-???-???- ???-???-???-???-???-???- 17w 1d 146 lb 6 oz 111/74 Negative -???-???-???-???-???-???- ???-???-???-???-???-???- Negative 153 -???-???-???-???-???-???- ???-???-???-???-???-???- JV- still laura ving nausea. zofran refilled. anatomy scan scheduled 10/2011/06/24 -???-???-???-???-???-???- ???-???-???-???-???-???- 21w 2d 1 (more content not included)... Normal [facility] Screening beta-hemolytic Str eptococcus cultureOrdered By: Krystyna Ramos on 02-26-2025 Beta-hemolytic Streptococcus culture Group B Beta Streptococcus is not isolated. [facility] Laboratory - Chemistry and C hemistry - challengeOrdered By: Thelma Taveras on 02-15-2025 Glucose Ql (U) Negative [facility] Laboratory - UrinalysisOrder ed By: Thelma Taveras on 02-15-2025 Protein Ql (U) Negative [facility] Senior Account Representative Office Visit Reporton 02-15-2025 Senior Account Representative Office Visit Report [facility] [address], [address] [place] [address] OFFICE VISIT Date of Service: 02/15/25 MR#: [id number] Acct: [id number] Name: NISSA CRAIN Rep #: [id number] : 1995 Provider: Dr. Thelma stearns MD Age/Sex: 30/F [place] [facility] [place]: Signed Intake Vital Signs 12/23/24 13:00 02/01/25 14:55 02/15/25 15:34 02/15/25 15:37 Height 5 ft 3 in 5 ft 3 in 5 ft 3 in 5 ft 3 in Weight: 166 lb 3 oz BMI 29.4 BP 133/78 H Intake Visit Reasons: 36 wk ob 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 Is patient in pain?: No Allergies No Known Allergies Allergy (Verified 02/15/25 15:30) Medications ???Medication ???Instructions ???Recorded ???Confirmed ???Type docosahexaenoic acid 200 mg mg PO 07/31/24 02/15/25 History capsule ( DHA) ondansetron HCl 4 mg tablet 4 mg PO Q4H #60 tabs 01/01/2502/05 Rx Last Menstrual Period: 06/10/24 Zika: Zika virus screening: Negative : No PFSH PFSH Family History Grandfather Stomach cancer Grandmother Breast cancer Social History adopted: No household members: spouse, children and other details: Pt's youger brother number of children: 1 current occupation: [employer] current occupational exposures/hazards: No pets and animals: Yes pets and animals: dog(s) history of recent travel: No sexually active: Yes Smoking Status: Never smoker alcohol intake: current alcohol intake frequency: holidays/special occasions only details: Not while substance use type: does not use well-balanced diet: daily or most days caffeine: Yes Type: carbonated beverages eating out: 1-3 times/week during the past year weight has: remained stable what type of physical activity do you participate in: none antoni/faith: None seatbelt use: always do you feel safe at home: Yes additional social history: : [place] Us History 2 Elective abortions Hx Para 1 Spontaneous abortions 0 Hx # Term Pregnancies 1 Ectopic pregnancies Hx # Pregnancies Multiple births # of living children 1 Past Pregnancies Del. Date Name GA/Weeks Outcome Route Bth Weight Infant Gen Labor Lgth Anesthesia Del Locatn Provider FOB 04/08/22 Kia 37 live - full term 6lbs 9oz Male epidural Sam[facility]iti an [facility] Delivery Date: 04/08/22 Last Updated by: Olive Day RN Induced for high blood pressure HPI 36 wk ob Details: NISSA CRAIN is a 30 year old who presents for routine OB visit. OB Visit PERLA Calculator Estimated Delivery Date Method Current WG Current Estimate 03/17/25 LMP (Certain) 35w 5d Other Estimates 03/18/25 Ultrasound #1 35w 4d Expected Delivery Route/Plan Labor Preferences- CB/BF classes: no labor support person: Markos labor intervention preferences: [] pain management options preferred: epidural cut cord/dad catch: cord : yes PP control planned: discussed discussed possible routes of delivery and associated risks: [] special requests: [] Specific Issue/Plans Covid status: [] Flu vaccine: [] Tdap vaccine: declines Rhogam: na LARC form signed: yes Problem list reviewed and updated with the most current plan of care details and appropriate orders placed. Relevant counseling for the gestational age provided. Continue routine care and follow up unless otherwise noted in visit notes/problem list details Initial Weight: Not Recorded Date -???-???-???-???-???-???- ???-???-???-???-???-???- EGA Weight BP Urine Prot -???-???-???-???-???-???- ???-???-???-???-???-???- Glucose FHR FuHt Pres Dilation -???-???-???-???-???-???- ???-???-???-???-???-???- Effaced St Visit Note 08/14/24 -???-???-???-???-???-???- ???-???-???-???-???-???- 9w 2d 141 lb 2 oz 126/74 -???-???-???-???-???-???- ???-???-???-???-???-???- 179 -???-???-???-???-???-???- ???-???-???-???-???-???- SM- CRL 9w1d cons with lmp 09/11/24 -???-???-???-???-???-???- ???-???-???-???-???-???- 13w 2d 143 lb 6 oz 119/78 -???-???-???-???-???-???- ???-???-???-???-???-???- 159 -???-???-???-???-???-???- ???-???-???-???-???-???- KW- no vb/cr amping. US ordered. encouraged to take PNV at night KW- no vb/cramping. US ordered. en couraged to take PNV at night. NIPT today 10/08/24 -???-???-???-???-???-???- ???-???-???-???-???-???- 17w 1d 146 lb 6 oz 111/74 Negative -???-???-???-???-???-???- ???-???-???-???-???-???- Negative 153 -???-???-???-???-???-???- ???-???-???-???-???-???- JV- still laura ving nausea. estefania refilled. anatomy scan scheduled 10/2011/06/24 -???-???-???-???-???-???- ???-???-???-???-???-???- 21w 2d 150 (more content not included)... Normal [facility] Laboratory - Chemistry and C hemistry - challengeOrdered By: Yao Brambila on 02-01-2025 Glucose Ql (U) Negative [facility] Laboratory - UrinalysisOrder ed By: Yao Brambila on 02-01-2025 Protein Ql (U) Negative [facility] Senior Account Representative Office Visit Reporton 02-01-2025 Senior Account Representative Office Visit Report [facility] [address], [address] [place] [address] OFFICE VISIT Date of Service: 02/01/25 MR#: [id number] Acct: [id number] Name: NISSA CRAIN Rep #: [id number] : 1995 Provider: MARIKA Eugene ams Age/Sex: 30/F [place] [facility] [place]: Signed Intake Vital Signs 12/02/24 15:37 01/25/25 09:30 02/01/25 14:55 Height 5 ft 3 in 5 ft 3 in 5 ft 3 in Weight: 164 lb 2 oz BMI 29.0 BP 121/85 H Intake Visit Reasons: 34wk ob Chief Complaint: 34wk OB 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 Is patient in pain?: No Allergies No Known Allergies Allergy (Verified 02/01/25 14:54) Medications ???Medication ???Instructions ???Recorded ???Confirmed ???Type docosahexaenoic acid 200 mg mg PO 07/31/24 02/01/25 History capsule ( DHA) ondansetron HCl 4 mg tablet 4 mg PO Q4H #60 tabs 01/01/25 07/03/01 Rx Last Menstrual Period: 06/10/24 : No PFSH PFSH Family History Grandfather Stomach cancer Grandmother Breast cancer Social History adopted: No household members: spouse, children and other details: Pt's youger brother number of children: 1 current occupation: [employer] current occupational exposures/hazards: No pets and animals: Yes pets and animals: dog(s) history of recent travel: No sexually active: Yes Smoking Status: Never smoker alcohol intake: current alcohol intake frequency: holidays/special occasions only details: Not while substance use type: does not use well-balanced diet: daily or most days caffeine: Yes Type: carbonated beverages eating out: 1-3 times/week during the past year weight has: remained stable what type of physical activity do you participate in: none antoni/faith: None seatbelt use: always do you feel safe at home: Yes additional social history: : [place] Us History 2 Elective abortions Hx Para 1 Spontaneous abortions 0 Hx # Term Pregnancies 1 Ectopic pregnancies Hx # Pregnancies Multiple births # of living children 1 Past Pregnancies Del. Date Name GA/Weeks Outcome Route Bth Weight Infant Gen Labor Lgth Anesthesia Del Locatn Provider FOB 04/08/22 Kia 37 live - full term 6lbs 9oz Male epidural Samaripollo an [facility] Delivery Date: 04/08/22 Last Updated by: Olive Day RN Induced for high blood pressure HPI 34wk ob Details: NSISA CRAIN is a 30 year old who presents for routine OB visit. OB Visit PERLA Calculator Estimated Delivery Date Method Current WG Current Estimate 03/17/25 LMP (Certain) 33w 5d Other Estimates 03/18/25 Ultrasound #1 33w 4d Expected Delivery Route/Plan Labor Preferences- CB/BF classes: no labor support person: Markos labor intervention preferences: [] pain management options preferred: epidural cut cord/dad catch: cord : yes PP control planned: discussed discussed possible routes of delivery and associated risks: [] special requests: [] Specific Issue/Plans Covid status: [] Flu vaccine: [] Tdap vaccine: declines Rhogam: na LARC form signed: yes Problem list reviewed and updated with the most current plan of care details and appropriate orders placed. Relevant counseling for the gestational age provided. Continue routine care and follow up unless otherwise noted in visit notes/problem list details Initial Weight: Not Recorded Date -???-???-???-???-???-???- ???-???-???-???-???-???- EGA Weight BP Urine Prot -???-???-???-???-???-???- ???-???-???-???-???-???- Glucose FHR FuHt Pres Dilation -???-???-???-???-???-???- ???-???-???-???-???-???- Effaced St Visit Note 08/14/24 -???-???-???-???-???-???- ???-???-???-???-???-???- 9w 2d 141 lb 2 oz 126/74 -???-???-???-???-???-???- ???-???-???-???-???-???- 179 -???-???-???-???-???-???- ???-???-???-???-???-???- SM- CRL 9w1d cons with lmp 09/11/24 -???-???-???-???-???-???- ???-???-???-???-???-???- 13w 2d 143 lb 6 oz 119/78 -???-???-???-???-???-???- ???-???-???-???-???-???- 159 -???-???-???-???-???-???- ???-???-???-???-???-???- KW- no vb/cr amping. US ordered. encouraged to take PNV at night KW- no vb/cramping. US ordered. en couraged to take PNV at night. NIPT today 10/08/24 -???-???-???-???-???-???- ???-???-???-???-???-???- 17w 1d 146 lb 6 oz 111/74 Negative -???-???-???-???-???-???- ???-???-???-???-???-???- Negative 153 -???-???-???-???-???-???- ???-???-???-???-???-???- JV- still laura ving nausea. zofran refilled. anatomy scan scheduled 10/2011/06/24 -???-???-???-???-???-???- ???-???-???-???-???-???- 21w 2d 150 lb 120/73 Negative -???-???-???-???-???-???- ???-???- (more content not included)... Normal [facility] Laboratory - Chemistry and C hemistry - challengeOrdered By: Yao Brambila on 01-25-2025 Glucose Ql (U) Negative [facility] Laboratory - UrinalysisOrder ed By: Yao Brambila on 01-25-2025 Protein Ql (U) Negative [facility] Senior Account Representative Office Visit Reporton 01-25-2025 Senior Account Representative Office Visit Report [facility] [address], [address] [place] [address] OFFICE VISIT Date of Service: 01/25/25 MR#: [id number] Acct: [id number] Name: NISSA CRAIN Rep #: [id number] : 1995 Provider: MARIKA Eugene ams Age/Sex: 30/F Location: [facility] [place] Status: Signed Intake Vital Signs 12/02/24 15:37 01/04/25 14:10 01/25/25 09:30 Height 5 ft 3 in 5 ft 3 in 5 ft 3 in Weight: 161 lb 8 oz BMI 28.5 BP 123/78 H Intake Visit Reasons: 32wk ob Chief Complaint: 32wk OB 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 Is patient in pain?: No Allergies No Known Allergies Allergy (Verified 01/25/25 09:29) Medications ???Medication ???Instructions ???Recorded ???Confirmed ???Type docosahexaenoic acid 200 mg mg PO 07/31/24 01/25/25 History capsule ( DHA) ondansetron HCl 4 mg tablet 4 mg PO Q4H #60 tabs 01/01/25 07/2 08/01 Rx Last Menstrual Period: 06/10/24 : No PFSH PFSH Family History Grandfather Stomach cancer Grandmother Breast cancer Social History adopted: No household members: spouse, children and other details: Pt's youger brother number of children: 1 current occupation: [employer] current occupational exposures/hazards: No pets and animals: Yes pets and animals: dog(s) history of recent travel: No sexually active: Yes Smoking Status: Never smoker alcohol intake: current alcohol intake frequency: holidays/special occasions only details: Not while substance use type: does not use well-balanced diet: daily or most days caffeine: Yes Type: carbonated beverages eating out: 1-3 times/week during the past year weight has: remained stable what type of physical activity do you participate in: none antoni/faith: None seatbelt use: always do you feel safe at home: Yes additional social history: : Martin Williamson Us History 2 Elective abortions Hx Para 1 Spontaneous abortions 0 Hx # Term Pregnancies 1 Ectopic pregnancies Hx # Pregnancies Multiple births # of living children 1 Past Pregnancies Del. Date Name GA/Weeks Outcome Route Bth Weight Gen Labor Lgth Anesthesia Del Locatn Provider FOB 04/08/22 Kia 37 live - full term 6lbs 9oz Male epidural Samariti an [facility] Delivery Date: 04/08/22 Last Updated by: Olive Day RN Induced for high blood pressure HPI 32wk ob Details: NISSA CRAIN is a 30 year old who presents for routine OB visit. OB Visit PERLA Calculator Estimated Delivery Date Method Current WG Current Estimate 03/17/25 LMP (Certain) 32w 5d Other Estimates 03/18/25 Ultrasound #1 32w 4d Expected Delivery Route/Plan Labor Preferences- CB/BF classes: no labor support person: Markos labor intervention preferences: [] pain management options preferred: epidural cut cord/dad catch: cord : yes PP control planned: discussed discussed possible routes of delivery and associated risks: [] special requests: [] Specific Issue/Plans Covid status: [] Flu vaccine: [] Tdap vaccine: declines Rhogam: na LARC form signed: yes Problem list reviewed and updated with the most current plan of care details and appropriate orders placed. Relevant counseling for the gestational age provided. Continue routine care and follow up unless otherwise noted in visit notes/problem list details Initial Weight: Not Recorded Date -???-???-???-???-???-???- ???-???-???-???-???-???- EGA Weight BP Urine Prot -???-???-???-???-???-???- ???-???-???-???-???-???- Glucose FHR FuHt Pres Dilation -???-???-???-???-???-???- ???-???-???-???-???-???- Effaced St Visit Note 08/14/24 -???-???-???-???-???-???- ???-???-???-???-???-???- 9w 2d 141 lb 2 oz 126/74 -???-???-???-???-???-???- ???-???-???-???-???-???- 179 -???-???-???-???-???-???- ???-???-???-???-???-???- SM- CRL 9w1d cons with lmp 09/11/24 -???-???-???-???-???-???- ???-???-???-???-???-???- 13w 2d 143 lb 6 oz 119/78 -???-???-???-???-???-???- ???-???-???-???-???-???- 159 -???-???-???-???-???-???- ???-???-???-???-???-???- KW- no vb/cr amping. US ordered. encouraged to take PNV at night KW- no vb/cramping. US ordered. en couraged to take PNV at night. NIPT today 10/08/24 -???-???-???-???-???-???- ???-???-???-???-???-???- 17w 1d 146 lb 6 oz 111/74 Negative -???-???-???-???-???-???- ???-???-???-???-???-???- Negative 153 -???-???-???-???-???-???- ???-???-???-???-???-???- JV- still laura ving nausea. estefania refilled. anatomy scan scheduled 10/2011/06/24 -???-???-???-???-???-???- ???-???-???-???-???-???- 21w 2d 150 lb 120/73 Negative -???-???-???-???-???-???- ???-???- (more content not included)... Normal [facility] Laboratory - Chemistry and C hemistry - challengeOrdered By: Andre Avila on 01-04-2025 Glucose Ql (U) Negative [facility] Laboratory - UrinalysisOrder ed By: Andre Avila on 01-04-2025 Protein Ql (U) Negative [facility] Senior Account Representative Office Visit Reporton 01-04-2025 Senior Account Representative Office Visit Report [facility]'s [address], [address] [place] [address] OFFICE VISIT Date of Service: 01/04/25 MR#: [id number] Acct: [id number] Name: NISSA CRAIN Rep #: [id number] : 1995 Provider: STEFANIE huang Age/Sex: 29/F [place] [facility] [place]: Signed Intake Vital Signs 12/02/24 15:37 12/23/24 13:00 01/04/25 14:10 Height 5 ft 3 in 5 ft 3 in 5 ft 3 in Weight: 160 lb 8 oz BMI 28.4 BP 112/68 Intake Visit Reasons: 30wk ob Chief Complaint: 30 Week OB 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 Is patient in pain?: No Allergies No Known Allergies Allergy (Verified 01/04/25 14:12) Medications ???Medication ???Instructions ???Recorded ???Confirmed ???Type docosahexaenoic acid 200 mg mg PO 07/31/24 01/04/25 History capsule ( DHA) ondansetron HCl 4 mg tablet 4 mg PO Q4H #60 tabs 01/01/2512/08 Rx Last Menstrual Period: 06/10/24 Zika: Zika virus screening: Negative : No PFSH PFSH Family History Grandfather Stomach cancer Grandmother Breast cancer Social History adopted: No household members: spouse, children and other details: Pt's youger brother number of children: 1 current occupation: [employer] current occupational exposures/hazards: No pets and animals: Yes pets and animals: dog(s) history of recent travel: No sexually active: Yes Smoking Status: Never smoker alcohol intake: current alcohol intake frequency: holidays/special occasions only details: Not while substance use type: does not use well-balanced diet: daily or most days caffeine: Yes Type: carbonated beverages eating out: 1-3 times/week during the past year weight has: remained stable what type of physical activity do you participate in: none antoni/faith: None seatbelt use: always do you feel safe at home: Yes additional social history: : Martin Williamson Us History 2 Elective abortions Hx Para 1 Spontaneous abortions 0 Hx # Term Pregnancies 1 Ectopic pregnancies Hx # Pregnancies Multiple births # of living children 1 Past Pregnancies Del. Date Name GA/Weeks Outcome Route Bth Weight Gen Labor Lgth Anesthesia Del Locatn Provider FOB 04/08/22 Kia 37 live - full term 6lbs 9oz Male epidural Samaripollo an [facility] Delivery Date: 04/08/22 Last Updated by: Olive Day RN Induced for high blood pressure HPI 30wk ob Details: NISSA CRAIN is a 29 year old who presents for routine OB visit. OB Visit PERLA Calculator Estimated Delivery Date Method Current WG Current Estimate 03/17/25 LMP (Certain) 29w 5d Other Estimates 03/18/25 Ultrasound #1 29w 4d Expected Delivery Route/Plan Labor Preferences- CB/BF classes: no labor support person: Markos labor intervention preferences: [] pain management options preferred: epidural cut cord/dad catch: cord : yes PP control planned: discussed discussed possible routes of delivery and associated risks: [] special requests: [] Specific Issue/Plans Covid status: [] Flu vaccine: [] Tdap vaccine: declines Rhogam: na LARC form signed: yes Problem list reviewed and updated with the most current plan of care details and appropriate orders placed. Relevant counseling for the gestational age provided. Continue routine care and follow up unless otherwise noted in visit notes/problem list details Initial Weight: Not Recorded Date -???-???-???-???-???-???- ???-???-???-???-???-???- EGA Weight BP Urine Prot -???-???-???-???-???-???- ???-???-???-???-???-???- Glucose FHR FuHt Pres Dilation -???-???-???-???-???-???- ???-???-???-???-???-???- Effaced St Visit Note 08/14/24 -???-???-???-???-???-???- ???-???-???-???-???-???- 9w 2d 141 lb 2 oz 126/74 -???-???-???-???-???-???- ???-???-???-???-???-???- 179 -???-???-???-???-???-???- ???-???-???-???-???-???- SM- CRL 9w1d cons with lmp 09/11/24 -???-???-???-???-???-???- ???-???-???-???-???-???- 13w 2d 143 lb 6 oz 119/78 -???-???-???-???-???-???- ???-???-???-???-???-???- 159 -???-???-???-???-???-???- ???-???-???-???-???-???- KW- no vb/cr amping. US ordered. encouraged to take PNV at night KW- no vb/cramping. US ordered. en couraged to take PNV at night. NIPT today 04/03/25 -???-???-???-???-???-???- ???-???-???-???-???-???- 17w 1d 146 lb 6 oz 111/74 Negative -???-???-???-???-???-???- ???-???-???-???-???-???- Negative 153 -???-???-???-???-???-???- ???-???-???-???-???-???- JV- still laura ving nausea. estefania refilled. anatomy scan scheduled 10/2011/06/24 -???-???-???-???-???-???- ???-???-???-???-???-???- 21w 2d 150 l (more content not included)... Normal [facility] Absolute lymphocyte countOrd ered By: Andre Mckeontings on 12-23-2024 Lymphocytes Auto (Unsp spec) [#/Vol] 1.87 10*3/uL 0.83-4.51 [facility] Absolute neutrophil countOrd ered By: Andre Mckeontings on 12-23-2024 Neutrophils (Bld) [#/Vol] 10.9 10*3/uL High 2.0-7.7 [facility] Automated lymphocyte count a s percentage of total leukocytesOrdered By: Andre Austin on 12-23-2024 Lymphocytes/100 WBC Auto (Unsp spec) 13.7 % Low 19-41 [facility] Basophil percentageOrdered B y: Andre Avila on 12-23-2024 Basophils/100 WBC (Bld) 0.4 % 0-1 [facility] CBC W/Diff, Automatedon 12-06 Absolute Lymph 1.87 X10 3/uL Normal 0.83-4.51 [facility] Comment on above: Order Comment: Comme nts: Drawn at [facility] Performed By: #### L 501.0250, L509.8002, L3890.6006, L100.0100 ####[facility] [address] [place], [address] Absolute Neut 10.9 X10 3/uL High 2.0-7.7 [facility] Comment on above: Order Comment: Comme nts: Drawn at [facility] Performed By: #### L 501.0250, L509.8002, L3890.6006, L100.0100 ####[facility] [address] [place], [address] Basophils/100 WBC (Bld) 0.4 % Normal 0-1 [facility] Comment on above: Order Comment: Comme nts: Drawn at [facility] Performed By: #### L 501.0250, L509.8002, L3890.6006, L100.0100 ####[facility] [address] [place], [address] Eosinophils/100 WBC (Bld) 0.9 % Normal 0-5 [facility] Comment on above: Order Comment: Comme nts: Drawn at [facility] Performed By: #### L 501.0250, L509.8002, L3890.6006, L100.0100 ####[facility] [address] [place], [address] Erythrocyte distribution width (RBC) [Ratio] 13.3 % Normal 11.6-14.6 [facility] Comment on above: Order Comment: Comme nts: Drawn at [facility] Performed By: #### L 501.0250, L509.8002, L3890.6006, L100.0100 ####[facility] [address] [place], [address] Hematocrit (Bld) [Volume fraction] 30.4 % Low 37-47 [facility] Comment on above: Order Comment: Comme nts: Drawn at [facility] Performed By: #### L 501.0250, L509.8002, L3890.6006, L100.0100 ####[facility] [address] [place], [address] Hemoglobin (Bld) [Mass/Vol] 10.3 g/dL Low 12.0-15.0 [facility] Comment on above: Order Comment: Comme nts: Drawn at [facility] Performed By: #### L 501.0250, L509.8002, L3890.6006, L100.0100 ####[facility] [address] [place], [address] IG% 0.800 Normal 0.0-0.9 [facility] Comment on above: Order Comment: Comme nts: Drawn at [facility] Result Comment: IG% - Immature Granulocytes (promyelocytes, myelocytes and metamyelocytes) > 1% indicates that a LEFT SHIFT is Present. Performed By: #### L 501.0250, L509.8002, L3890.6006, L100.0100 ####[facility] [address] [place], [address] Lymphocytes/100 WBC (Bld) 13.7 % Low 19-41 [facility] Comment on above: Order Comment: Comme nts: Drawn at [facility] Performed By: #### L 501.0250, L509.8002, L3890.6006, L100.0100 ####[facility] [address] [place], [address] MCH (RBC) [Entitic mass] 31.0 pg Normal 27.0-32.0 [facility] Comment on above: Order Comment: Comme nts: Drawn at [facility] Performed By: #### L 501.0250, L509.8002, L3890.6006, L100.0100 ####[facility] [address] [place], [address] MCHC (RBC) [Mass/Vol] 33.9 g/dL Normal 32-36 [facility] Comment on above: Order Comment: Comme nts: Drawn at [facility] Performed By: #### L 501.0250, L509.8002, L3890.6006, L100.0100 ####[facility] [address] [place], [address] MCV (RBC) [Entitic vol] 91.6 fL Normal 81-99 [facility] Comment on above: Order Comment: Comme nts: Drawn at [facility] Performed By: #### L 501.0250, L509.8002, L3890.6006, L100.0100 ####[facility] [address] [place], [address] Monocytes/100 WBC (Bld) 4.8 % Normal 0-10 [facility] Comment on above: Order Comment: Comme nts: Drawn at [facility] Performed By: #### L 501.0250, L509.8002, L3890.6006, L100.0100 ####[facility] [address] [place], [address] Neutrophils/100 WBC (Bld) 79.4 % High 47-70 [facility] Comment on above: Order Comment: Comme nts: Drawn at [facility] Performed By: #### L 501.0250, L509.8002, L3890.6006, L100.0100 ####[facility] [address] [place], [address] Nucleated RBC (Bld) [#/Vol] 0 10*3/uL Normal 0-5 [facility] Comment on above: Order Comment: Comme nts: Drawn at [facility] Performed By: #### L 501.0250, L509.8002, L3890.6006, L100.0100 ####[facility] [address] [place], [address] Platelet mean volume (Bld) [Entitic vol] 9.6 fL Normal 6.2-12.0 [facility] Comment on above: Order Comment: Comme nts: Drawn at [facility] Performed By: #### L 501.0250, L509.8002, L3890.6006, L100.0100 ####[facility] [address] [place], [address] Platelets (Bld) [#/Vol] 338 10*3/uL Normal 150-450 [facility] Comment on above: Order Comment: Comme nts: Drawn at [facility] Performed By: #### L 501.0250, L509.8002, L3890.6006, L100.0100 ####[facility] [address] [place], [address] RBC (Bld) [#/Vol] 3.32 10*6/uL Low 4.2-5.4 [facility] Comment on above: Order Comment: Comme nts: Drawn at [facility] Performed By: #### L 501.0250, L509.8002, L3890.6006, L100.0100 ####[facility] [address] [place], [address] RDW SD 44.3 fl High 35.1-43.9 [facility] Comment on above: Order Comment: Comme nts: Drawn at [facility] Performed By: #### L 501.0250, L509.8002, L3890.6006, L100.0100 ####[facility] [address] [place], [address] WBC (Bld) [#/Vol] 13.7 10*3/uL High 4.4-11.0 [facility] Comment on above: Order Comment: Comme nts: Drawn at [facility] Performed By: #### L 501.0250, L509.8002, L3890.6006, L100.0100 ####[facility] [address] [place], [address] Eosinophil percentageOrdered By: Andre Avila on 12-23-2024 Eosinophils/100 WBC (Bld) 0.9 % 0-5 [facility] Erythrocyte distribution wid th ratioOrdered By: Andre Avila on 12-23-2024 Erythrocyte distribution width (RBC) [Ratio] 13.3 % 11.6-14.6 [facility] Erythrocyte distribution wid th standard deviationOrdered By: Andre Avila on 12-23-2024 Erythrocyte distribution width (RBC) [Ratio] 44.3 fl High 35.1-43.9 [facility] Glucose Challenge Gest 1H 50 jessica 12-23-2024 GLU GEST 50g 1H 116 mg/dL Normal 70-140 [facility] Comment on above: Performed By: #### L 501.0250, L509.8002, L3890.6006, L100.0100 ####[facility] [address] [place], [place], [id number] Glucose measurement at 2 terri rs post-dose gestational glucose tolerance testOrdered By: Andre Avila on 12-23-2024 Glucose [Mass/Vol] 116 mg/dL 70-140 [facility] HIVon 12-23-2024 HIV Non-Reactive Normal Nonreactive [facility] Comment on above: Result Comment: Non- Reactive Reactive Repeatedly reactive samples must be confirmed according to CDC recommended confirmatory algorithms. The subresults for either HIVAG or AHIV can be used as an aid in the selection of the confirmation algorithm for reactive samples. Send out specimens with Reactive results to [facility] for confirmation. Order the HIV antibody detection and differentiation: #[id number] Performed By: #### L 501.0250, L509.8002, L3890.6006, L100.0100 ####[facility] [address] [place], [place], [id number] Hematocrit Auto (Bld) [Volum e fraction]Ordered By: Andre Avila on 12-23-2024 Hematocrit (Bld) [Volume fraction] 30.4 % Low 37-47 [facility] Hemoglobin measurementOrdere d By: Andre Avila on 12-23-2024 Hemoglobin (Bld) [Mass/Vol] 10.3 g/dL Low 12.0-15.0 [facility] Immature granulocytes/100 WB C Auto (Bld)Ordered By: Andre Avila on 12-23-2024 Immature granulocytes/100 WBC (Bld) 0.800 % 0.0-0.9 [facility] Comment on above: IG% - Immature Granu locytes (promyelocytes, myelocytes and metamyelocytes) > 1% indicates that a LEFT SHIFT is Present. Laboratory - Chemistry and C hemistry - challengeOrdered By: Thelma Taveras on 12-23-2024 Glucose Ql (U) Negative [facility] Laboratory - UrinalysisOrder ed By: Thelma Taveras on 12-23-2024 Protein Ql (U) Negative [facility] MCV (mean corpuscular volume ) determinationOrdered By: Andre Avila on 12-23-2024 MCV (RBC) [Entitic vol] 91.6 fL 81-99 [facility] Mean corpuscular hemoglobin (MCH) determinationOrdered By: Andre Avila on 12-23-2024 MCH (RBC) [Entitic mass] 31.0 pg 27.0-32.0 [facility] Mean corpuscular hemoglobin concentration (MCHC) determinationOrdered By: Andre Avila on 12-23-2024 MCHC (RBC) [Mass/Vol] 33.9 g/dL 32-36 [facility] Mean platelet volume determi nationOrdered By: Andre Avila on 12-23-2024 Platelet mean volume (Bld) [Entitic vol] 9.6 fL 6.2-12.0 [facility] Monocyte percentageOrdered B y: Andre Avila on 12-23-2024 Monocytes/100 WBC (Bld) 4.8 % 0-10 [facility] Neutrophil percentageOrdered By: Andre Avila on 12-23-2024 Neutrophils/100 WBC (Bld) 79.4 % High 47-70 [facility] No Panel InformationOrdered By: Andre Avila on 12-23-2024 HIV (1&2) Antibody Non-Reactive Nonreactive [facility] Comment on above: Non-ReactiveReactive Repeatedly reactive samples must be confirmed according to CDC recommended confirmatory algorithms. The subresults for either HIVAG or AHIV can be used as an aid in the selection of the confirmation algorithm for reactive samples.Send out specimens with Reactive results to [facility] for confirmation.Order the HIV antibody detection and differentiation: #[id number] Nucleated red blood cell per centageOrdered By: Andre Avila on 12-23-2024 Nucleated RBC/100 WBC (Bld) [Ratio] 0 % 0-5 [facility] Senior Account Representative Office Visit Reporton 12-23-2024 Senior Account Representative Office Visit Report [facility]'s [address], [address] [place] [address] OFFICE VISIT Date of Service: 12/23/24 MR#: [id number] Acct: [id number] Name: NISSA CRAIN Rep #: [id number] : 1995 Provider: Dr. Thelma stearns MD Age/Sex: 29/F [place] [facility] [place]: Signed Intake Vital Signs 10/08/24 14:53 12/02/24 15:37 12/23/24 12:57 12/23/24 13:00 Height 5 ft 3 in 5 ft 3 in 5 ft 3 in 5 ft 3 in Weight: 157 lb 4 oz BMI 27.8 BP 118/74 Intake Visit Reasons: 28wk ob/glucose 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 Is patient in pain?: No Allergies No Known Allergies Allergy (Verified 12/23/24 12:58) Medications ???Medication ???Instructions ???Recorded ???Confirmed ???Type docosahexaenoic acid 200 mg mg PO 07/31/24 12/23/24 History capsule ( DHA) ondansetron HCl 4 mg tablet 4 mg PO Q4H #60 tabs 10/08/2412/06 Rx Last Menstrual Period: 06/10/24 Zika: Zika virus screening: Negative : No PFSH PFSH Family History Grandfather Stomach cancer Grandmother Breast cancer Social History adopted: No household members: spouse, children and other details: Pt's youger brother number of children: 1 current occupation: [employer] current occupational exposures/hazards: No pets and animals: Yes pets and animals: dog(s) history of recent travel: No sexually active: Yes Smoking Status: Never smoker alcohol intake: current alcohol intake frequency: holidays/special occasions only details: Not while substance use type: does not use well-balanced diet: daily or most days caffeine: Yes Type: carbonated beverages eating out: 1-3 times/week during the past year weight has: remained stable what type of physical activity do you participate in: none antoni/faith: None seatbelt use: always do you feel safe at home: Yes additional social history: : Martin Williamson Us History 2 Elective abortions Hx Para 1 Spontaneous abortions 0 Hx # Term Pregnancies 1 Ectopic pregnancies Hx # Pregnancies Multiple births # of living children 1 Past Pregnancies Del. Date Name GA/Weeks Outcome Route Bth Weight Infant Gen Labor Lgth Anesthesia Del Locatn Provider FOB 04/08/22 Jasmintrevin 37 live - full term 6lbs 9oz Male epidural Samariti an [facility] Delivery Date: 04/08/22 Last Updated by: Olive Day RN Induced for high blood pressure HPI 28wk ob/glucose Details: NISSA CRAIN is a 29 year old who presents for routine OB visit. OB Visit PERLA Calculator Estimated Delivery Date Method Current WG Current Estimate 03/17/25 LMP (Certain) 28w 0d Other Estimates 03/18/25 Ultrasound #1 27w 6d Expected Delivery Route/Plan Labor Preferences- CB/BF classes: no labor support person: Markos labor intervention preferences: [] pain management options preferred: epidural cut cord/dad catch: cord : yes PP control planned: discussed discussed possible routes of delivery and associated risks: [] special requests: [] Specific Issue/Plans Covid status: [] Flu vaccine: [] Tdap vaccine: [] Rhogam: na LARC form signed: yes Problem list reviewed and updated with the most current plan of care details and appropriate orders placed. Relevant counseling for the gestational age provided. Continue routine care and follow up unless otherwise noted in visit notes/problem list details Initial Weight: Not Recorded Date -???-???-???-???-???-???- ???-???-???-???-???-???- EGA Weight BP Urine Prot -???-???-???-???-???-???- ???-???-???-???-???-???- Glucose FHR FuHt Pres Dilation -???-???-???-???-???-???- ???-???-???-???-???-???- Effaced St Visit Note 08/14/24 -???-???-???-???-???-???- ???-???-???-???-???-???- 9w 2d 141 lb 2 oz 126/74 -???-???-???-???-???-???- ???-???-???-???-???-???- 179 -???-???-???-???-???-???- ???-???-???-???-???-???- SM- CRL 9w1d cons with lmp 09/11/24 -???-???-???-???-???-???- ???-???-???-???-???-???- 13w 2d 143 lb 6 oz 119/78 -???-???-???-???-???-???- ???-???-???-???-???-???- 159 -???-???-???-???-???-???- ???-???-???-???-???-???- KW- no vb/cr amping. US ordered. encouraged to take PNV at night KW- no vb/cramping. US ordered. en couraged to take PNV at night. NIPT today 10/08/24 -???-???-???-???-???-???- ???-???-???-???-???-???- 17w 1d 146 lb 6 oz 111/74 Negative -???-???-???-???-???-???- ???-???-???-???-???-???- Negative 153 -???-???-???-???-???-???- ???-???-???-???-???-???- JV- still laura ving nausea. zofran refilled. anatomy scan scheduled 10/2011/06/24 -???-???-???-???-???-???- ???-???-???-???-???-???- 21w (more content not included)... Normal [facility] Platelet countOrdered By: Alexander Avila on 12-23-2024 Platelets (Bld) [#/Vol] 338 10*3/uL 150-450 [facility] RBC Auto (Bld) [#/Vol]Ordere d By: Andre Avila on 12-23-2024 RBC (Bld) [#/Vol] 3.32 10*6/uL Low 4.2-5.4 [facility] Syphilis Antibodieson 2024 Syphilis Abs Non-Reactive Normal Nonreactive [facility] Comment on above: Performed By: #### L 501.0250, L509.8002, L3890.6006, L100.0100 ####[facility] [address] [place], [address] White blood cell (WBC) count Ordered By: Andre Avila on 06-18-2025 WBC (Bld) [#/Vol] 13.7 10*3/uL High 4.4-11.0 [facility] BILE ACIDS, TOTALon 12-03-19 25 Bile acid [Moles/Vol] 6.1 umol/L Normal <7.5 [facility] Comment on above: Order Comment: Abel esquivel Type: BLOOD SPECIMEN Ordering Facility: [facility] Address: [address] [place] [id number] Result Comment: Refe rence interval applies to fasting specimens. The total serum bile acid concentration is increased after meals; hence, samples should be collected under fasting conditions, when possible. This does not apply to patients for whom intrahepatic cholestasis of as a diagnostic consideration; these patients will need peak bile acid testing, and samples should be postprandial. This serum bile acid assay should not be used for patients receiving ursodeoxycholic acid, nor should it be used as the primary assay for the screening or diagnosis of genetic disorders of bile acid metabolism. Patient Reference Intervals: 0 Days to 5 Months: Not established 6 Months to 23 Months: <25.8 umol/L 2 Years to 4 Years: <20.9 umol/L 5 Years to 9 Years: <12.4 umol/L 10 Years to 19 Years: <13.6 umol/L 20 Years to 59 Years: <7.5 umol/L >=60 Years: <8.3 umol/L Reference Intervals (Non-fasting): First Trimester (up to 13 weeks gestation): < 15.3 umol/L Reference Interval (Non-fasting): Second Trimester (13 - 27 weeks gestation): < 11.4 umol/L Reference Interval (Non-fasting): Third Trimester (> 27 weeks gestation): < 10.4 umol/L Performed By: #### B RAMIRO #### [facility] CLIA [id number] [address] [place] [address] [place] CBC W Auto Differential pane l (Bld)on 12-02-2024 Basophils (Bld) [#/Vol] 0.06 10*3/uL Normal <0.11 [facility] Comment on above: Order Comment: Abel esquivel Type: BLOOD SPECIMEN Ordering Facility: [facility] Address: [address] [place] [address] Performed By: #### 5 7021-8 #### [facility] CLIA [id number] [address] [place] [address] [place] Basophils/100 WBC (Bld) 0.4 % Normal [facility] Comment on above: Order Comment: Speci men Type: BLOOD SPECIMEN Ordering Facility: [facility] Address: [address] [place] [address] Performed By: #### 5 7021-8 #### [facility] CLIA [id number] [address] [place] [address] [place] Differential cell count method Nom (Bld) Auto Normal [facility] Comment on above: Order Comment: Speci men Type: BLOOD SPECIMEN Ordering Facility: [facility] Address: [address] [place] [address] Performed By: #### 5 7021-8 #### [facility] CLIA [id number] [address] [place] [address] [place] Eosinophils (Bld) [#/Vol] 0.14 10*3/uL Normal <0.46 [facility] Comment on above: Order Comment: Speci men Type: BLOOD SPECIMEN Ordering Facility: [facility] Address: [address] [place] [address] Performed By: #### 5 7021-8 #### [facility] CLIA [id number] [address] [place] [address] [place] Eosinophils/100 WBC (Bld) 0.9 % Normal [facility] Comment on above: Order Comment: Speci men Type: BLOOD SPECIMEN Ordering Facility: [facility] Address: [address] [place] [address] Performed By: #### 5 7021-8 #### [facility] CLIA [id number] [address] [place] [address] [place] Erythrocyte distribution width (RBC) [Ratio] 13.9 % Normal 11.5-15.0 [facility] Comment on above: Order Comment: Speci men Type: BLOOD SPECIMEN Ordering Facility: [facility] Address: [address] [place] [address] Performed By: #### 5 7021-8 #### [facility] CLIA [id number] [address] [place] [address] [place] Hematocrit (Bld) [Volume fraction] 32.4 % Low 36.0-46.0 [facility] Comment on above: Order Comment: Speci men Type: BLOOD SPECIMEN Ordering Facility: [facility] Address: [address] [place] [address] Performed By: #### 5 7021-8 #### [facility] CLIA [id number] [address] [place] [address] [place] Hemoglobin (Bld) [Mass/Vol] 11.0 g/dL Low 11.5-15.5 [facility] Comment on above: Order Comment: Speci men Type: BLOOD SPECIMEN Ordering Facility: [facility] Address: [address] [place] [address] Performed By: #### 5 7021-8 #### [facility] CLIA [id number] [address] [place] [address] [place] Immature granulocytes (Bld) [#/Vol] 0.11 10*3/uL High <0.10 [facility] Comment on above: Order Comment: Speci men Type: BLOOD SPECIMEN Ordering Facility: [facility] Address: [address] [place] [address] Performed By: #### 5 7021-8 #### [facility] CLIA [id number] [address] [place] [address] [place] Immature granulocytes/100 WBC (Bld) 0.7 % Normal [facility] Comment on above: Order Comment: Speci men Type: BLOOD SPECIMEN Ordering Facility: [facility] Address: [address] [address] Performed By: #### 5 7021-8 #### [facility] CLIA [id number] [address] [place] [address] [place] Lymphocytes (Bld) [#/Vol] 2.11 10*3/uL Normal 1.00-4.00 [facility] Comment on above: Order Comment: Speci men Type: BLOOD SPECIMEN Ordering Facility: [facility] Address: [address] [place] [address] Performed By: #### 5 7021-8 #### [facility] CLIA [id number] [address] [place] [address] [place] Lymphocytes/100 WBC (Bld) 13.3 % Normal [facility] Comment on above: Order Comment: Speci men Type: BLOOD SPECIMEN Ordering Facility: [facility] Address: [address] [place] [address] Performed By: #### 5 7021-8 #### [facility] CLIA [id number] [address] [place], [place] [address] [place] MCH (RBC) [Entitic mass] 31.2 pg Normal 26.0-34.0 [facility] Comment on above: Order Comment: Speci men Type: BLOOD SPECIMEN Ordering Facility: [facility] Address: [address] [place] [address] Performed By: #### 5 7021-8 #### [facility] CLIA [id number] [address] [place], [place] [address] [place] MCHC (RBC) [Mass/Vol] 34.0 g/dL Normal 30.5-36.0 [facility] Comment on above: Order Comment: Speci men Type: BLOOD SPECIMEN Ordering Facility: [facility] Address: [address] [place] [address] Performed By: #### 5 7021-8 #### [facility] CLIA [id number] [address] [place] [address] [place] [address] [place] MCV (RBC) [Entitic vol] 91.8 fL Normal 80.0-100.0 [facility] Comment on above: Order Comment: Speci men Type: BLOOD SPECIMEN Ordering Facility: [facility] Address: [address] [place] [address] Performed By: #### 5 7021-8 #### [facility] CLIA [id number] [address] [place] [address] [place] Monocytes (Bld) [#/Vol] 1.01 10*3/uL High <0.87 [facility] Comment on above: Order Comment: Speci men Type: BLOOD SPECIMEN Ordering Facility: [facility] Address: [address] [place] [address] Performed By: #### 5 7021-8 #### [facility] CLIA [id number] [address] [place], [place] [address] [place] Monocytes/100 WBC (Bld) 6.4 % Normal [facility] Comment on above: Order Comment: Speci men Type: BLOOD SPECIMEN Ordering Facility: [facility] Address: [address] [place] [address] Performed By: #### 5 7021-8 #### [facility] CLIA [id number] [address] [place] [address] [place] Neutrophils (Bld) [#/Vol] 12.40 10*3/uL High 1.45-7.50 [facility] Comment on above: Order Comment: Speci men Type: BLOOD SPECIMEN Ordering Facility: [facility] Address: [address] [place] [address] Performed By: #### 5 7021-8 #### [facility] CLIA [id number] [address] [place] [address] [place] Neutrophils/100 WBC (Bld) 78.3 % Normal [facility] Comment on above: Order Comment: Speci men Type: BLOOD SPECIMEN Ordering Facility: [facility] Address: [address] [place] [address] Performed By: #### 5 7021-8 #### [facility] CLIA [id number] [address] [place] [address] [place] Nucleated RBC (Bld) [#/Vol] 10*3/uL Normal <0.01 [facility] Comment on above: Order Comment: Speci men Type: BLOOD SPECIMEN Ordering Facility: [facility] Address: [address] [place] [address] Performed By: #### 5 7021-8 #### [facility] CLIA [id number] [address] [place] [address] [place] Nucleated RBC/100 WBC (Bld) [Ratio] 0.0 /100 WBC Normal [facility] Comment on above: Order Comment: Speci men Type: BLOOD SPECIMEN Ordering Facility: [facility] Address: [address] [place] [address] Performed By: #### 5 7021-8 #### [facility] CLIA [id number] [address] [place] [address] [place] Platelet mean volume (Bld) [Entitic vol] 10.3 fL Normal 9.0-12.7 [facility] Comment on above: Order Comment: Speci men Type: BLOOD SPECIMEN Ordering Facility: [facility] Address: [address] [place] [address] Performed By: #### 5 7021-8 #### [facility] CLIA [id number] [address] [id number] [place] Platelets (Bld) [#/Vol] 346 10*3/uL Normal 150-400 [facility] Comment on above: Order Comment: Speci men Type: BLOOD SPECIMEN Ordering Facility: [facility] Address: [address] [place] [address] Performed By: #### 5 7021-8 #### [facility] CLIA [id number] [address] [address] [place] RBC (Bld) [#/Vol] 3.53 10*6/uL Low 3.90-5.20 [facility] Comment on above: Order Comment: Speci men Type: BLOOD SPECIMEN Ordering Facility: [facility] Address: [address] [place] [address] Performed By: #### 5 7021-8 #### [facility] CLIA [id number] [facility] [id number] [place] WBC (Bld) [#/Vol] 15.83 10*3/uL High 3.70-11.00 [facility] Comment on above: Order Comment: Speci men Type: BLOOD SPECIMEN Ordering Facility: [facility] Address: [address] [place] [address] Performed By: #### 5 7021-8 #### [facility] CLIA [id number] [address] [place], [place] [address] [place] Comprehensive metabolic 2000 panelon 12-02-2024 Albumin [Mass/Vol] 3.6 g/dL Low 3.9-4.9 [facility] Comment on above: Order Comment: Speci men Type: BLOOD SPECIMEN Ordering Facility: [facility] Address: [address] [place] [address] Performed By: #### 2 4323-8 #### [facility] CLIA [id number] [address] [place], [place] [address] [place] ALP [Catalytic activity/Vol] 82 U/L Normal 34-123 [facility] Comment on above: Order Comment: Speci men Type: BLOOD SPECIMEN Ordering Facility: [facility] Address: [address] [place] [address] Performed By: #### 2 4323-8 #### [facility] CLIA [id number] [address] [place], [place] [address] [place] ALT [Catalytic activity/Vol] 5 U/L Low 7-38 [facility] Comment on above: Order Comment: Speci men Type: BLOOD SPECIMEN Ordering Facility: [facility] Address: [address] [place] [address] Performed By: #### 2 4323-8 #### [facility] CLIA [id number] [address] [place] [address] [place] Anion gap [Moles/Vol] 12 mmol/L Normal 8-15 [facility] Comment on above: Order Comment: Speci men Type: BLOOD SPECIMEN Ordering Facility: [facility] Address: [address] [place] [address] Performed By: #### 2 4323-8 #### [facility] CLIA [id number] [address] [place], [place] [address] [place] AST [Catalytic activity/Vol] 13 U/L Normal 13-35 [facility] Comment on above: Order Comment: Speci men Type: BLOOD SPECIMEN Ordering Facility: [facility] Address: [address] [place] [address] Performed By: #### 2 4323-8 #### [facility] CLIA [id number] [address] [place], [place] [address] [place] Bilirubin [Mass/Vol] 0.4 mg/dL Normal 0.2-1.3 [facility] Comment on above: Order Comment: Speci men Type: BLOOD SPECIMEN Ordering Facility: [facility] Address: [address] [place] [address] Performed By: #### 2 4323-8 #### [facility] CLIA [id number] [address] [id number] [place] Calcium [Mass/Vol] 9.1 mg/dL Normal 8.5-10.2 [facility] Comment on above: Order Comment: Speci men Type: BLOOD SPECIMEN Ordering Facility: [facility] Address: [address] [place] [address], [place] [address] Performed By: #### 2 4323-8 #### [facility] CLIA [id number] [address] [id number] [place] Chloride [Moles/Vol] 103 mmol/L Normal 98-107 [facility] Comment on above: Order Comment: Speci men Type: BLOOD SPECIMEN Ordering Facility: [facility] Address: [address] [place] [address] Performed By: #### 2 4323-8 #### [facility] CLIA [id number] [address] [id number] [place] CO2 [Moles/Vol] 21 mmol/L Low 22-30 [facility] Comment on above: Order Comment: Speci men Type: BLOOD SPECIMEN Ordering Facility: [facility] Address: [address] [place] [address] Performed By: #### 2 4323-8 #### [facility] CLIA [id number] [facility] [place] [address] [place] Creatinine [Mass/Vol] 0.49 mg/dL Low 0.58-0.96 [facility] Comment on above: Order Comment: Speci men Type: BLOOD SPECIMEN Ordering Facility: [facility] Address: [address] [place] [address] Performed By: #### 2 4323-8 #### [facility] CLIA [id number] [address] [place], [place] [address] [place] Creatinine and Glomerular filtration rate.predicted panel (S/P/Bld) 133 mL/min/1.73m??? Normal >=60 [facility] Comment on above: Order Comment: Speci men Type: BLOOD SPECIMEN Ordering Facility: [facility] Address: [address] [place] [address] Result Comment: Cece mated Glomerular Filtration Rate (eGFR) is calculated using the 2020 CKD-EPI creatinine equation. This equation utilizes serum creatinine, sex, and age as parameters. The creatinine assay has traceable calibration to isotope dilution-mass spectrometry. Refer to KDIGO guidelines for clinical interpretation. In patients with unstable renal function, e.g. those with acute kidney injury, the eGFR may not accurately reflect actual GFR. Performed By: #### 2 4323-8 #### [facility] CLIA [id number] [address] [address] [place] Glucose [Mass/Vol] 93 mg/dL Normal 74-99 [facility] Comment on above: Order Comment: Speci men Type: BLOOD SPECIMEN Ordering Facility: [facility] Address: [address] [place] [address] Result Comment: The [place] Diabetes Association (ADA) provides guidance for cutoff values for fasting glucose and random glucose. The ADA defines fasting as no caloric intake for at least 8 hours. Fasting plasma glucose results between 100 to 125 mg/dL indicate increased risk for diabetes (prediabetes). Fasting plasma glucose results greater than or equal to 126 mg/dL meet the criteria for diagnosis of diabetes. In the absence of unequivocal hyperglycemia, results should be confirmed by repeat testing. In a patient with classic symptoms of hyperglycemia or hyperglycemic crisis, random plasma glucose results greater than or equal to 200 mg/dL meet the criteria for diagnosis of diabetes. Reference: Standards of Medical Care in Diabetes 2016, [place] [employer]. Diabetes Care. 2016.39(Suppl 1). Performed By: #### 2 4323-8 #### [facility] CLIA [id number] [address] [address] [place] Potassium [Moles/Vol] 4.0 mmol/L Normal 3.7-5.1 [facility] Comment on above: Order Comment: Alonai men Type: BLOOD SPECIMEN Ordering Facility: [facility] Address: [address] [place] [address] Performed By: #### 2 4323-8 #### [facility] CLIA [id number] [address] [address] [place] Protein [Mass/Vol] 6.1 g/dL Low 6.3-8.0 [facility] Comment on above: Order Comment: Speci men Type: BLOOD SPECIMEN Ordering Facility: [facility] Address: [address] [place] [address] Performed By: #### 2 4323-8 #### [facility] CLIA [id number] [address] [place] [address] [place] Sodium [Moles/Vol] 136 mmol/L Normal 136-144 [facility] Comment on above: Order Comment: Speci men Type: BLOOD SPECIMEN Ordering Facility: [facility] Address: [address] [place] [address] Performed By: #### 2 4323-8 #### [facility] CLIA [id number] [address] [place] [address] [place] Urea nitrogen [Mass/Vol] 6 mg/dL Low 7-21 [facility] Comment on above: Order Comment: Speci men Type: BLOOD SPECIMEN Ordering Facility: [facility] Address: [address] [place] [address] Performed By: #### 2 4323-8 #### [facility] CLIA [id number] [address] [place] [address] [place] Laboratory - Chemistry and C hemistry - challengeOrdered By: Andre Avila on 12-02-2024 Glucose Ql (U) Negative [facility] - UrinalysisOrder ed By: Andre Avila on 12-02-2024 Protein Ql (U) Negative [facility] Senior Account Representative Office Visit Reporton 12-02-2024 Senior Account Representative Office Visit Report [address] [id number] OFFICE VISIT Date of Service: 12/02/24 MR#: [id number] Acct: [id number] Name: NISSA CRAIN Rep #: [id number] : 1995 Provider: STEFANIE huang Age/Sex: 29/F [place] [facility] [place]: Signed Intake Vital Signs 10/08/24 14:53 11/06/24 13:20 12/02/24 15:37 Height 5 ft 3 in 5 ft 3 in 5 ft 3 in Weight: 154 lb 8 oz BMI 27.3 BP 118/72 Intake Visit Reasons: 25wk ob Chief Complaint: 25 Week OB 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 Is patient in pain?: No Allergies No Known Allergies Allergy (Verified 12/02/24 15:39) Medications ???Medication ???Instructions ???Recorded ???Confirmed ???Type docosahexaenoic acid 200 mg mg PO 07/31/24 12/02/24 History capsule ( DHA) ondansetron HCl 4 mg tablet 4 mg PO Q4H #60 tabs 10/08/2411/06 Rx Last Menstrual Period: 06/10/24 Zika: Zika virus screening: Negative : No PFSH PFSH Family History Grandfather Stomach cancer Grandmother Breast cancer Social History adopted: No household members: spouse, children and other details: Pt's youger brother number of children: 1 current occupation: [employer] current occupational exposures/hazards: No pets and animals: Yes pets and animals: dog(s) history of recent travel: No sexually active: Yes Smoking Status: Never smoker alcohol intake: current alcohol intake frequency: holidays/special occasions only details: Not while substance use type: does not use well-balanced diet: daily or most days caffeine: Yes Type: carbonated beverages eating out: 1-3 times/week during the past year weight has: remained stable what type of physical activity do you participate in: none antoni/faith: None seatbelt use: always do you feel safe at home: Yes additional social history: : Martin Williamson Us History 2 Elective abortions Hx Para 1 Spontaneous abortions 0 Hx # Term Pregnancies 1 Ectopic pregnancies Hx # Pregnancies Multiple births # of living children 1 Past Pregnancies Del. Date Name GA/Weeks Outcome Route Bth Weight Infant Gen Labor Lgth Anesthesia Del Locatn Provider FOB 04/08/22 Kia 37 live - full term 6lbs 9oz Male epidural Samariti an [facility] Delivery Date: 04/08/22 Last Updated by: Olive Day RN Induced for high blood pressure HPI 25wk ob Details: NISSA CRAIN is a 29 year old who presents for routine OB visit. OB Visit PERLA Calculator Estimated Delivery Date Method Current WG Current Estimate 03/17/25 LMP (Certain) 25w 0d Other Estimates 03/18/25 Ultrasound #1 24w 6d Expected Delivery Route/Plan Labor Preferences- CB/BF classes: no labor support person: Markos labor intervention preferences: [] pain management options preferred: epidural cut cord/dad catch: cord : yes PP control planned: discussed discussed possible routes of delivery and associated risks: [] special requests: [] Specific Issue/Plans Covid status: [] Flu vaccine: [] Tdap vaccine: [] Rhogam: na LARC form signed: yes Problem list reviewed and updated with the most current plan of care details and appropriate orders placed. Relevant counseling for the gestational age provided. Continue routine care and follow up unless otherwise noted in visit notes/problem list details Initial Weight: Not Recorded Date -???-???-???-???-???-???- ???-???-???-???-???-???- EGA Weight BP Urine Prot -???-???-???-???-???-???- ???-???-???-???-???-???- Glucose FHR FuHt Pres Dilation -???-???-???-???-???-???- ???-???-???-???-???-???- Effaced St Visit Note 08/14/24 -???-???-???-???-???-???- ???-???-???-???-???-???- 9w 2d 141 lb 2 oz 126/74 -???-???-???-???-???-???- ???-???-???-???-???-???- 179 -???-???-???-???-???-???- ???-???-???-???-???-???- SM- CRL 9w1d cons with lmp 09/11/24 -???-???-???-???-???-???- ???-???-???-???-???-???- 13w 2d 143 lb 6 oz 119/78 -???-???-???-???-???-???- ???-???-???-???-???-???- 159 -???-???-???-???-???-???- ???-???-???-???-???-???- KW- no vb/cr amping. US ordered. encouraged to take PNV at night KW- no vb/cramping. US ordered. en couraged to take PNV at night. NIPT today 10/08/24 -???-???-???-???-???-???- ???-???-???-???-???-???- 17w 1d 146 lb 6 oz 111/74 Negative -???-???-???-???-???-???- ???-???-???-???-???-???- Negative 153 -???-???-???-???-???-???- ???-???-???-???-???-???- JV- still laura ving nausea. estefania refilled. anatomy scan scheduled 10/2011/06/24 -???-???-???-???-???-???- ???-???-???-???-???-???- 21w 2d 150 lb 120/73 N (more content not included)... Normal [facility] Parvovirus B19 IgG AND IgMon 12-02-2024 PARVO B19 IGG 5.4 index Abnormal 0.0-0.8 [facility] Comment on above: Result Comment: Nega tive <0.9 Equivocal 0.9 - 1.1 Positive >1.1 Performed By: #### L 7000.2100 ####[facility] [id number] [place], [place], [id number] PARVO B19 IGM 0.2 index Normal 0.0-0.8 [facility] Comment on above: Result Comment: Nega tive <0.9 Equivocal 0.9 - 1.1 Positive >1.1 Performed at: [facility] [id number] Dermatopathologist: Francisca Witt MD, Phone: [phone] Performed By: #### L 7000.2100 ####[facility] [id number] [place], [place], [id number] Parvovirus B19 IgMOrdered By : Gem Molina on 11-25-2024 Parvovirus B19 IgM IA Qn (S) 0.2 index 0.0-0.8 [facility] Comment on above: Negative <0.9 Equivo kamar 0.9 - 1.1 Positive >1.1Performed at: [address] [id number] Director: Francisca Witt MD, Phone: [phone] Progress Noteon 11-17-2024 Enterprise Resource Planning Consultant Authentication Interface Message Text [facility] Consult INDICATION FOR CONSULT: Suspected horseshoe kidney HISTORY OF PRESENT ILLNESS: Patient is a 29 y.o. at 22w6d who presents for consultation regarding Suspected horseshoe kidney. Obstetrical History OB History Para Term AB Living 2 1 1 1 SAB IAB Ectopic Multiple Live Births 1 # Outcome Date GA Lbr Alvaro/2nd Weight Sex Type Anes PTL Lv 2 Current 1 Term 04/08/22 37w0d 2.977 kg M Vag-Spont EPI GEOVANI Low risk NIPT Past Medical History: Diagnosis Date Treatment Center Plan of Care Past Surgical History: Procedure Laterality Date WISDOM TOOTH EXTRACTION FAMILY HISTORY: See Genetic Counseling note Outpatient Medications Marked as Taking for the 11/17/24 encounter (Office Visit) with Desmond Cohen MD Medication Sig Dispense Refill ondansetron (ZOFRAN) 4 MG tablet Take 1 Tablet (4 mg) by mouth as needed Social History Socioeconomic History Marital status: Single Spouse name: Not on file Number of children: Not on file Years of education: Not on file Highest education level: Not on file Occupational History Not on file Tobacco Use Smoking status: Never Smokeless tobacco: Never Substance and Sexual Activity Alcohol use: Not Currently Drug use: Never Sexual activity: Not on file Other Topics Concern Not on file Social History Narrative Not on file Social Drivers of Health Food Insecurity: Not on file Transportation Needs: Not on file Housing Stability: Not on file Allergies[1] Review of Systems - negative unless otherwise specified above Vitals: 11/17/24 1349 BP: 118/63 Pulse: 88 Resp: 16 SpO2: 98% Weight: 68.9 kg (151 lb 12.8 oz) BMI Readings from Last 1 Encounters: 11/17/24 29.65 kg/m Physical Examination: General appearance - alert, well appearing, and in no distress Mental status - alert, oriented to person, place, and time Chest - No difficulty with breathing Heart - Normal Rate Abdomen - Non tender during US exam Pelvic - Deferred Extremities - no edema noted Ultrasound performed today in the office: 1. Single, living IUP at 22w 6d by clinical PERLA. 2. EFW is 551 g at 44% with the Abdominal circumference at 55%. 3. Amniotic fluid volume appeared normal. 4. Placenta is posterior, grade 1. 5. Visualized anatomy appears normal, with limitations as noted above. 6. The inferior poles of the bilateral kidneys appear fused as well as displaced inferiorly. Normal bladder, normal amniotic fluid, normal-appearing parenchyma, and no appearance of obstruction. Today we discussed the above ultrasound findings. We started with discussing the normal kidneys, ureters, bladder and amniotic fluid. We then reviewed the suspected diagnosis of horseshoe kidney. We reviewed that there is no other anomalies seen today. Her NIPT is low risk with decrease the risk of Aguirre syndrome. We do not expect there to be complications however we will follow-up growth at 32 weeks. We discussed management and increased risk for renal complications including infections, renal calculi, obstructive uropathy. We will have the patient see pediatric urology in the third trimester. All questions and concerns were addressed. Isolated horseshoe kidney does not seem to increase the risk for abnormal chromosomal microarray results EJOG 2017 Radha My Impression and recommendations include the following: Nissa Crain is a 29 y.o. year old at 22w6d Nissa Crain also met with our genetic counselor, see separate documentation for counseling. She met Pia Hernandez, Clinical Retread Mold Operator from the [facility]. Pia will continue to help coordinate and care. [facility] Plan of Care Diagnosis: Horseshoe kidney. Cell free DNA aneuploidy screening is low risk. Declined invasive testing. Plan: 1. Continued obstetrical care with her primary assistant golf coach is recommended. 2. Follow up ultrasound at 32 weeks gestation. These are planned with the [facility]. 3. consultation with Pediatric Urology will be arranged. 4. Delivery is appropriate at your local institution. 5. Mode and timing of delivery are based on the usual obstetrical indications. 6. Pediatric provider to determine if additional evaluations are recommended prior to discharge. 7. Other follow up as clinically indicated. My final recommendations will be communicated back to the requesting physician by way of shared medical record or fax. Desmond Cohen MD [1] No Known Allergies Normal [facility] Laboratory - Chemistry and C hemistry - challengeOrdered By: Yao Brambila on 11-06-2024 Glucose Ql (U) Negative [facility] Laboratory - UrinalysisOrder ed By: Yao Brambila on 11-06-2024 Protein Ql (U) Negative [facility] Senior Account Representative Office Visit Reporton 11-06-2024 Senior Account Representative Office Visit Report [facility] [address], [address] [place] [address] OFFICE VISIT Date of Service: 11/06/24 MR#: [id number] Acct: [id number] Name: NISSA CRAIN Rep #: [id number] : 1995 Provider: MARIKA Eugene ams Age/Sex: 29/F Location: [facility] Status: Signed Intake Vital Signs 09/11/24 10:02 10/08/24 14:53 11/06/24 13:19 11/06/24 13:20 Height 5 ft 3 in 5 ft 3 in 5 ft 3 in 5 ft 3 in Weight: 150 lb BMI 26.5 BP 120/73 Intake Visit Reasons: 21wk ob 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 Is patient in pain?: No Allergies No Known Allergies Allergy (Verified 11/06/24 13:19) Medications ???Medication ???Instructions ???Recorded ???Confirmed ???Type docosahexaenoic acid 200 mg mg PO 07/31/24 11/06/24 History capsule ( DHA) ondansetron HCl 4 mg tablet 4 mg PO Q4H #60 tabs 10/08/2409/01 Rx Last Menstrual Period: 06/10/24 Zika: Zika virus screening: Negative : No Have you fallen in the past year?: No PFSH PFSH Family History Grandfather Stomach cancer Grandmother Breast cancer Social History adopted: No household members: spouse, children and other details: Pt's youger brother number of children: 1 current occupation: [employer] current occupational exposures/hazards: No pets and animals: Yes pets and animals: dog(s) history of recent travel: No sexually active: Yes Smoking Status: Never smoker alcohol intake: current alcohol intake frequency: holidays/special occasions only details: Not while substance use type: does not use well-balanced diet: daily or most days caffeine: Yes Type: carbonated beverages eating out: 1-3 times/week during the past year weight has: remained stable what type of physical activity do you participate in: none antoni/faith: None seatbelt use: always do you feel safe at home: Yes additional social history: : Martin Williamson History 2 Elective abortions Hx Para 1 Spontaneous abortions 0 Hx # Term Pregnancies 1 Ectopic pregnancies Hx # Pregnancies Multiple births # of living children 1 Past Pregnancies Del. Date Name GA/Weeks Outcome Route Bth Weight Infant Gen Labor Lgth Anesthesia Del Locatn Provider FOB 04/08/22 Kia 37 live - full term 6lbs 9oz Male epidural Samariti an [facility] Delivery Date: 04/08/22 Last Updated by: Olive Day RN Induced for high blood pressure HPI 21wk ob Details: NISSA CRAIN is a 29 year old who presents for routine OB visit. OB Visit PERLA Calculator Estimated Delivery Date Method Current WG Current Estimate 03/17/25 LMP (Certain) 21w 2d Other Estimates 03/18/25 Ultrasound #1 21w 1d Expected Delivery Route/Plan Labor Preferences- CB/BF classes: [] labor support person: [] labor intervention preferences: [] pain management options preferred: [] cut cord/dad catch: [] : [] PP control planned: [] discussed possible routes of delivery and associated risks: [] special requests: [] Specific Issue/Plans Covid status: [] Flu vaccine: [] Tdap vaccine: [] Rhogam: [] LARC form signed: [] Problem list reviewed and updated with the most current plan of care details and appropriate orders placed. Relevant counseling for the gestational age provided. Continue routine care and follow up unless otherwise noted in visit notes/problem list details Initial Weight: Not Recorded Date -???-???-???-???-???-???- ???-???-???-???-???-???- EGA Weight BP Urine Prot -???-???-???-???-???-???- ???-???-???-???-???-???- Glucose FHR FuHt Pres Dilation -???-???-???-???-???-???- ???-???-???-???-???-???- Effaced St Visit Note 08/14/24 -???-???-???-???-???-???- ???-???-???-???-???-???- 9w 2d 141 lb 2 oz 126/74 -???-???-???-???-???-???- ???-???-???-???-???-???- 179 -???-???-???-???-???-???- ???-???-???-???-???-???- SM- CRL 9w1d cons with lmp 09/11/24 -???-???-???-???-???-???- ???-???-???-???-???-???- 13w 2d 143 lb 6 oz 119/78 -???-???-???-???-???-???- ???-???-???-???-???-???- 159 -???-???-???-???-???-???- ???-???-???-???-???-???- KW- no vb/cr amping. US ordered. encouraged to take PNV at night KW- no vb/cramping. US ordered. en couraged to take PNV at night. NIPT today 10/08/24 -???-???-???-???-???-???- ???-???-???-???-???-???- 17w 1d 146 lb 6 oz 111/74 Negative -???-???-???-???-???-???- ???-???-???-???-???-???- Negative 153 -???-???-???-???-???-???- ???-???-???-???-???-???- JV- still laura ving nausea. estefania refilled. anatomy scan scheduled 10/2011/06/24 -???-???-???-???-???-???- ???-???-???-???-???-???- 21w 2d 150 lb 120/73 N (more content not included)... Normal [facility] Laboratory - Chemistry and C hemistry - challengeOrdered By: Gem Molina on 10-08-2024 Glucose Ql (U) Negative [facility] Laboratory - UrinalysisOrder ed By: Gem Molina on 10-08-2024 Protein Ql (U) Negative [facility] Senior Account Representative Office Visit Reporton 10-08-2024 Senior Account Representative Office Visit Report [facility] [address], [address] [place] [address] OFFICE VISIT Date of Service: 10/08/24 MR#: [id number] Acct: [id number] Name: NISSA CRAIN Rep #: [id number] : 1995 Provider: Dr. 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 Is patient in pain?: No Allergies No Known Allergies Allergy (Verified 10/08/24 14:52) Medications ???Medication ???Instructions ???Recorded ???Confirmed ???Type docosahexaenoic acid 200 mg mg PO 07/31/24 10/08/24 History capsule ( DHA) ondansetron HCl 4 mg tablet 4 mg PO Q4H #60 tabs 10/08/2409/29 Rx Last Menstrual Period: 06/10/24 Zika: Zika virus screening: Negative : No PFSH PFSH Family History Grandfather Stomach cancer Grandmother Breast cancer Social History adopted: No household members: spouse, children and other details: Pt's madonnager brother number of children: 1 current occupation: [employer] current occupational exposures/hazards: No pets and animals: Yes pets and animals: dog(s) history of recent travel: No sexually active: Yes Smoking Status: Never smoker alcohol intake: current alcohol intake frequency: holidays/special occasions only details: Not while substance use type: does not use well-balanced diet: daily or most days caffeine: Yes Type: carbonated beverages eating out: 1-3 times/week during the past year weight has: remained stable what type of physical activity do you participate in: none antoni/faith: None seatbelt use: always do you feel safe at home: Yes additional social history: : Martin Williamson History 2 Elective abortions Hx Para 1 Spontaneous abortions 0 Hx # Term Pregnancies 1 Ectopic pregnancies Hx # Pregnancies Multiple births # of living children 1 Past Pregnancies Del. Date Name GA/Weeks Outcome Route Bth Weight Gen Labor Lgth Anesthesia Del Locatn Provider FOB 04/08/22 Kia 37 live - full term 6lbs 9oz Male epidural Samariti an [facility] Delivery Date: 04/08/22 Last Updated by: Olive Day RN Induced for high blood pressure HPI 17wk ob Details: NISSA CRAIN is a 29 year old who presents for routine OB visit. OB Visit PERLA Calculator Estimated Delivery Date Method Current WG Current Estimate 03/17/25 LMP (Certain) 17w 1d Other Estimates 03/18/25 Ultrasound #1 17w 0d Expected Delivery Route/Plan Labor Preferences- CB/BF classes: [] labor support person: [] labor intervention preferences: [] pain management options preferred: [] cut cord/dad catch: [] : [] PP control planned: [] discussed possible routes of delivery and associated risks: [] special requests: [] Specific Issue/Plans Covid status: [] Flu vaccine: [] Tdap vaccine: [] Rhogam: [] LARC form signed: [] Problem list reviewed and updated with the most current plan of care details and appropriate orders placed. Relevant counseling for the gestational age provided. Continue routine care and follow up unless otherwise noted in visit notes/problem list details Initial Weight: Not Recorded Date -???-???-???-???-???-???- ???-???-???-???-???-???- EGA Weight BP Urine Prot -???-???-???-???-???-???- ???-???-???-???-???-???- Glucose FHR FuHt Pres Dilation -???-???-???-???-???-???- ???-???-???-???-???-???- Effaced St Visit Note 08/14/24 -???-???-???-???-???-???- ???-???-???-???-???-???- 9w 2d 141 lb 2 oz 126/74 -???-???-???-???-???-???- ???-???-???-???-???-???- 179 -???-???-???-???-???-???- ???-???-???-???-???-???- SM- CRL 9w1d cons with lmp 09/11/24 -???-???-???-???-???-???- ???-???-???-???-???-???- 13w 2d 143 lb 6 oz 119/78 -???-???-???-???-???-???- ???-???-???-???-???-???- 159 -???-???-???-???-???-???- ???-???-???-???-???-???- KW- no vb/cr amping. US ordered. encouraged to take PNV at night KW- no vb/cramping. US ordered. en couraged to take PNV at night. NIPT today 10/08/24 -???-???-???-???-???-???- ???-???-???-???-???-???- 17w 1d 146 lb 6 oz 111/74 Negative -???-???-???-???-???-???- ???-???-???-???-???-???- Negative 153 -???-???-???-???-???-???- ???-???-???-???-???-???- JV- still laura ving nausea. zofran refilled. anatomy scan [place] 10[place] [place] First Trimester: Discussed Second Trimester Second Trimester: Signs and Symptoms o (more content not included)... Normal [facility] Creatinine Unsp time (U) [Ma ss/Vol]Ordered By: Yao Brambila on 09-11-2024 Creatinine (U) [Mass/Vol] 86.30 mg/dL 28-217 [facility] Miscellaneous procedureOrder ed By: Yao Brambila on 09-11-2024 Miscellaneous Test Comment SEE SCANNED REPORT [facility] NATERAon 09-11-2024 NATURA SEE SCANNED REPORT Normal [facility] Comment on above: Performed By: #### L 900.0098 #### [facility] [address] [place], [address] Senior Account Representative Office Visit Reporton 09-11-2024 Senior Account Representative Office Visit Report [facility] [address], [address] [place] [address] OFFICE VISIT Date of Service: 09/11/24 MR#: [id number] Acct: [id number] Name: NISSA CRAIN Rep #: [id number] : 1995 Provider: MARIKA Eugene ams Age/Sex: 29/F Location: [facility] Status: Signed Intake Vital Signs 09/11/24 10:02 Height 5 ft 3 in Weight: 143 lb 6 oz BMI 25.4 BP 119/78 Intake Visit Reasons: 13wk OB Chief Complaint: 13wk OB Is patient in pain?: No Allergies No Known Allergies Allergy (Unverified 09/11/24 09:58) Medications ???Medication ???Instructions ???Recorded ???Confirmed ???Type docosahexaenoic acid 200 mg mg PO 07/31/24 09/11/24 History capsule ( DHA) ondansetron HCl 4 mg tablet 4 mg PO Q4H #60 tabs 09/08/2401/29 Rx Last Menstrual Period: 06/10/24 : No PFSH PFSH Family History Grandfather Stomach cancer Grandmother Breast cancer Social History adopted: No household members: spouse, children and other details: Pt's youger brother number of children: 1 current occupation: [employer] current occupational exposures/hazards: No pets and animals: Yes pets and animals: dog(s) history of recent travel: No sexually active: Yes Smoking Status: Never smoker alcohol intake: current alcohol intake frequency: holidays/special occasions only details: Not while substance use type: does not use well-balanced diet: daily or most days caffeine: Yes Type: carbonated beverages eating out: 1-3 times/week during the past year weight has: remained stable what type of physical activity do you participate in: none antoni/faith: None seatbelt use: always do you feel safe at home: Yes additional social history: : Martin Williamson Us History 2 Elective abortions Hx Para 1 Spontaneous abortions 0 Hx # Term Pregnancies 1 Ectopic pregnancies Hx # Pregnancies Multiple births # of living children 1 Past Pregnancies Del. Date Name GA/Weeks Outcome Route Bth Weight Gen Labor Lgth Anesthesia Del Locatn Provider FOB 04/08/22 Kia 37 live - full term 6lbs 9oz Male epidural Samariti an [facility] Delivery Date: 04/08/22 Last Updated by: Olive Dya RN Induced for high blood pressure HPI 13wk OB Details: NISSA CRAIN is a 29 year old who presents for routine OB visit. OB Visit PERLA Calculator Estimated Delivery Date Method Current WG Current Estimate 03/17/25 LMP (Certain) 13w 2d Other Estimates 03/18/25 Ultrasound #1 13w 1d Expected Delivery Route/Plan Labor Preferences- CB/BF classes: [] labor support person: [] labor intervention preferences: [] pain management options preferred: [] cut cord/dad catch: [] : [] PP control planned: [] discussed possible routes of delivery and associated risks: [] special requests: [] Specific Issue/Plans Covid status: [] Flu vaccine: [] Tdap vaccine: [] Rhogam: [] LARC form signed: [] Problem list reviewed and updated with the most current plan of care details and appropriate orders placed. Relevant counseling for the gestational age provided. Continue routine care and follow up unless otherwise noted in visit notes/problem list details Initial Weight: Not Recorded Date -???-???-???-???-???-???- ???-???-???-???-???-???- EGA Weight BP Urine Prot -???-???-???-???-???-???- ???-???-???-???-???-???- Glucose FHR FuHt Pres Dilation -???-???-???-???-???-???- ???-???-???-???-???-???- Effaced St Visit Note 08/14/24 -???-???-???-???-???-???- ???-???-???-???-???-???- 9w 2d 141 lb 2 oz 126/74 -???-???-???-???-???-???- ???-???-???-???-???-???- 179 -???-???-???-???-???-???- ???-???-???-???-???-???- SM- CRL 9w1d cons with lmp 09/11/24 -???-???-???-???-???-???- ???-???-???-???-???-???- 13w 2d 143 lb 6 oz 119/78 -???-???-???-???-???-???- ???-???-???-???-???-???- 159 -???-???-???-???-???-???- ???-???-???-???-???-???- KW- no vb/cr amping. US ordered. encouraged to take PNV at night KW- no vb/cramping. US ordered. en couraged to take PNV at night. NIPT today ACOG First Trimester First Trimester: Discussed ROS Const Reports system reviewed and no additional complaints, except as documented Eyes Reports system reviewed and no additional complaints, except as documented ENT Reports system reviewed and no additional complaints, except as documented Card Reports system reviewed and no additional complaints, except as documented Resp Reports system reviewed and no additional complaints, except as documented GI Reports system reviewed and no ad (more content not included)... Normal [facility] Protein+Creatinine Ratio,Uri neon 09-11-2024 PROT:CRE RATIO 123 mg/g CRE Normal 0-200 [facility] Comment on above: Performed By: #### L 501.0900 ####[facility] [address] [place], [address] Protein (U) [Mass/Vol] 10.6 mg/dL Normal 0.0-12.0 [facility] Comment on above: Performed By: #### L 501.0900 ####[facility] [address] [place], [address] UR CREAT 86.30 mg/dL Normal [facility] Comment on above: Performed By: #### L 501.0900 ####[facility] [address] [place], [address] Protein/Creatinine (U) [Mass ratio]Ordered By: Yao Brambila on 09-11-2024 Urine Protein/Creatinine Ratio 123 mg/g CRE 0-200 [facility] Random urine creatinine trudi urement (mass/volume)Ordered By: Yao Brambila on 09-11-2024 Creatinine Unsp time (U) [Mass/Vol] 86.30 mg/dL [facility] Urine protein measurement (m ass/volume)Ordered By: Yao Brambila on 09-11-2024 Protein (U) [Mass/Vol] 10.6 mg/dL 0.0-12.0 [facility] Urine protein/creatinine mas s ratioOrdered By: Yao Brambila on 09-11-2024 Protein/Creatinine (U) [Mass ratio] 123 mg/g CRE 0-200 [facility] Absolute lymphocyte countOrd ered By: Thelma Taveras on 08-27-2024 Lymphocytes Auto (Unsp spec) [#/Vol] 1.96 10*3/uL 0.83-4.51 [facility] Absolute neutrophil countOrd ered By: Thelma Taveras on 08-27-2024 Neutrophils (Bld) [#/Vol] 8.1 10*3/uL High 2.0-7.7 [facility] Albumin to globulin ratioOrd ered By: Thelma Taveras on 08-27-2024 Albumin/Globulin [Mass ratio] 1.1 {ratio} 0.9-2.4 [facility] Automated lymphocyte count a s percentage of total leukocytesOrdered By: Thelma Taveras on 08-27-2024 Lymphocytes/100 WBC Auto (Unsp spec) 17.9 % Low 19-41 [facility] Basophil percentageOrdered B y: Thelma Taveras on 08-27-2024 Basophils/100 WBC (Bld) 0.5 % 0-1 [facility] Bilirubin, totalOrdered By: Thelma Taveras on 08-27-2024 Bilirubin [Mass/Vol] 0.60 mg/dL 0.20-1.00 [facility] Comment on above: For patients on eltr ombopag therapy, use of Dimension [place] TBIL is not recommended. Blood urea nitrogen (BUN)/cr eatinine ratioOrdered By: Thelma Taveras on 08-27-2024 Urea nitrogen/Creatinine [Mass ratio] 13.3 mg/mg 04-26 [facility] CBC W/Diff, Automatedon 08-09 Absolute Lymph 1.96 X10 3/uL Normal 0.83-4.51 [facility] Comment on above: Performed By: #### L 100.0100, L501.0900, L3890.6005, L3890.6100, L509.8000, L500.4050, BTS, L3890.6300, L509.4005 ####[facility] [address] [place], [address] Absolute Neut 8.1 X10 3/uL High 2.0-7.7 [facility] Comment on above: Performed By: #### L 100.0100, L501.0900, L3890.6005, L3890.6100, L509.8000, L500.4050, BTS, L3890.6300, L509.4005 ####[facility] [address] [place], [address] Basophils/100 WBC (Bld) 0.5 % Normal 0-1 [facility] Comment on above: Performed By: #### L 100.0100, L501.0900, L3890.6005, L3890.6100, L509.8000, L500.4050, BTS, L3890.6300, L509.4005 ####[facility] [address] [place], [address] Eosinophils/100 WBC (Bld) 1.7 % Normal 0-5 [facility] Comment on above: Performed By: #### L 100.0100, L501.0900, L3890.6005, L3890.6100, L509.8000, L500.4050, BTS, L3890.6300, L509.4005 ####[facility] [address] [place], [place], [id number]([phone]) Erythrocyte distribution width (RBC) [Ratio] 13.3 % Normal 11.6-14.6 [facility] Comment on above: Performed By: #### L 100.0100, L501.0900, L3890.6005, L3890.6100, L509.8000, L500.4050, BTS, L3890.6300, L509.4005 ####[facility] [address] [place], [address](201) Hematocrit (Bld) [Volume fraction] 37.0 % Normal 37-47 [facility] Comment on above: Performed By: #### L 100.0100, L501.0900, L3890.6005, L3890.6100, L509.8000, L500.4050, BTS, L3890.6300, L509.4005 ####[facility] [address] [place], [place], [id number](980) Hemoglobin (Bld) [Mass/Vol] 12.1 g/dL Normal 12.0-15.0 [facility] Comment on above: Performed By: #### L 100.0100, L501.0900, L3890.6005, L3890.6100, L509.8000, L500.4050, BTS, L3890.6300, L509.4005 ####[facility] [address] [place], [address] IG% 0.500 Normal 0.0-0.9 [facility] Comment on above: Result Comment: IG% - Immature Granulocytes (promyelocytes, myelocytes and metamyelocytes) > 1% indicates that a LEFT SHIFT is Present. Performed By: #### L 100.0100, L501.0900, L3890.6005, L3890.6100, L509.8000, L500.4050, BTS, L3890.6300, L509.4005 ####[facility] [address] [place], [address] Lymphocytes/100 WBC (Bld) 17.9 % Low 19-41 [facility] [facility] Comment on above: Performed By: #### L 100.0100, L501.0900, L3890.6005, L3890.6100, L509.8000, L500.4050, BTS, L3890.6300, L509.4005 ####[facility] [address] [place], [address] MCH (RBC) [Entitic mass] 29.4 pg Normal 27.0-32.0 [facility] Comment on above: Performed By: #### L 100.0100, L501.0900, L3890.6005, L3890.6100, L509.8000, L500.4050, BTS, L3890.6300, L509.4005 ####[facility] [address] [place], [address] MCHC (RBC) [Mass/Vol] 32.7 g/dL Normal 32-36 [facility] Comment on above: Performed By: #### L 100.0100, L501.0900, L3890.6005, L3890.6100, L509.8000, L500.4050, BTS, L3890.6300, L509.4005 ####[facility] [address] [place], [address] MCV (RBC) [Entitic vol] 89.8 fL Normal 81-99 [facility] Comment on above: Performed By: #### L 100.0100, L501.0900, L3890.6005, L3890.6100, L509.8000, L500.4050, BTS, L3890.6300, L509.4005 ####[facility] [address] [place], [address] Monocytes/100 WBC (Bld) 5.9 % Normal 0-10 [facility] Comment on above: Performed By: #### L 100.0100, L501.0900, L3890.6005, L3890.6100, L509.8000, L500.4050, BTS, L3890.6300, L509.4005 ####[facility] [address] [place], [address] Neutrophils/100 WBC (Bld) 73.5 % High 47-70 [facility] Comment on above: Performed By: #### L 100.0100, L501.0900, L3890.6005, L3890.6100, L509.8000, L500.4050, BTS, L3890.6300, L509.4005 ####[facility] [address] [place], [address] Nucleated RBC (Bld) [#/Vol] 0 10*3/uL Normal 0-5 [facility] Comment on above: Performed By: #### L 100.0100, L501.0900, L3890.6005, L3890.6100, L509.8000, L500.4050, BTS, L3890.6300, L509.4005 ####[facility] [address] [place], [address] Platelet mean volume (Bld) [Entitic vol] 9.6 fL Normal 6.2-12.0 [facility] Comment on above: Performed By: #### L 100.0100, L501.0900, L3890.6005, L3890.6100, L509.8000, L500.4050, BTS, L3890.6300, L509.4005 ####[facility] [address] [place], [address] Platelets (Bld) [#/Vol] 339 10*3/uL Normal 150-450 [facility] Comment on above: Performed By: #### L 100.0100, L501.0900, L3890.6005, L3890.6100, L509.8000, L500.4050, BTS, L3890.6300, L509.4005 ####[facility] [address] [place], [address] RBC (Bld) [#/Vol] 4.12 10*6/uL Low 4.2-5.4 [facility] Comment on above: Performed By: #### L 100.0100, L501.0900, L3890.6005, L3890.6100, L509.8000, L500.4050, BTS, L3890.6300, L509.4005 ####[facility] [address] [place], [address] RDW SD 43.9 fl Normal 35.1-43.9 [facility] Comment on above: Performed By: #### L 100.0100, L501.0900, L3890.6005, L3890.6100, L509.8000, L500.4050, BTS, L3890.6300, L509.4005 ####[facility] [address] [place], [address] WBC (Bld) [#/Vol] 11.0 10*3/uL Normal 4.4-11.0 [facility] Comment on above: Performed By: #### L 100.0100, L501.0900, L3890.6005, L3890.6100, L509.8000, L500.4050, BTS, L3890.6300, L509.4005 ####[facility] [address] [place], [place], [address] Carbon dioxide measurementOr dered By: Thelma Taveras on 08-27-2024 CO2 [Moles/Vol] 26.0 mmol/L 21.0-32.0 [facility] Chloride measurementOrdered By: Thelma Taveras on 08-27-2024 Chloride [Moles/Vol] 104 mmol/L 98-107 [facility] Comprehensive Metabolic Prof ilon 08-27-2024 Albumin [Mass/Vol] 3.6 g/dL Normal 3.2-5.0 [facility] Comment on above: Performed By: #### L 100.0100, L501.0900, L3890.6005, L3890.6100, L509.8000, L500.4050, BTS, L3890.6300, L509.4005 ####[facility] [address] [place], [place], [id number] Albumin/Globulin [Mass ratio] 1.1 {ratio} Normal 0.9-2.4 [facility] Comment on above: Performed By: #### L 100.0100, L501.0900, L3890.6005, L3890.6100, L509.8000, L500.4050, BTS, L3890.6300, L509.4005 ####[facility] [address] [place], [address] ALK P 62 U/L Normal 45-117 [facility] Comment on above: Performed By: #### L 100.0100, L501.0900, L3890.6005, L3890.6100, L509.8000, L500.4050, BTS, L3890.6300, L509.4005 ####[facility] [address] [place], [address] ALT [Catalytic activity/Vol] 14 U/L Normal 13-56 [facility] Comment on above: Performed By: #### L 100.0100, L501.0900, L3890.6005, L3890.6100, L509.8000, L500.4050, BTS, L3890.6300, L509.4005 ####[facility] [address] [place], [address] AST [Catalytic activity/Vol] 12 U/L Low 15-37 [facility] Comment on above: Performed By: #### L 100.0100, L501.0900, L3890.6005, L3890.6100, L509.8000, L500.4050, BTS, L3890.6300, L509.4005 ####[facility] [address] [place], [address] Bilirubin [Mass/Vol] 0.60 mg/dL Normal 0.20-1.00 [facility] Comment on above: Result Comment: For patients on eltrombopag therapy, use of Dimension [place] TBIL is not recommended. Performed By: #### L 100.0100, L501.0900, L3890.6005, L3890.6100, L509.8000, L500.4050, BTS, L3890.6300, L509.4005 ####[facility] [address] [place], [address] BUN/CRE 13.3 RATIO Normal 10-20 [facility] Comment on above: Performed By: #### L 100.0100, L501.0900, L3890.6005, L3890.6100, L509.8000, L500.4050, BTS, L3890.6300, L509.4005 ####[facility] [address] [place], [address] CA,Total 9.0 mg/dL Normal 8.5-10.1 [facility] Comment on above: Performed By: #### L 100.0100, L501.0900, L3890.6005, L3890.6100, L509.8000, L500.4050, BTS, L3890.6300, L509.4005 ####[facility] [address] [place], [address] Chloride [Moles/Vol] 104 mmol/L Normal 98-107 [facility] Comment on above: Performed By: #### L 100.0100, L501.0900, L3890.6005, L3890.6100, L509.8000, L500.4050, BTS, L3890.6300, L509.4005 ####[facility] [address] [place], [address] CO2 [Moles/Vol] 26.0 mmol/L Normal 21.0-32.0 [facility] Comment on above: Performed By: #### L 100.0100, L501.0900, L3890.6005, L3890.6100, L509.8000, L500.4050, BTS, L3890.6300, L509.4005 ####[facility] [address] [place], [address] Creatinine [Mass/Vol] 0.53 mg/dL Low 0.55-1.02 [facility] Comment on above: Result Comment: The validity of the calculated GFR GFRAA in patients over 70 years has not been determined. Clinical correlation is essential. Performed By: #### L 100.0100, L501.0900, L3890.6005, L3890.6100, L509.8000, L500.4050, BTS, L3890.6300, L509.4005 ####[facility] [address] [place], [address] EST GFR - AA 178 mL/min Normal >60 [facility] Comment on above: Result Comment: Afri can [place] GFR Calc Performed By: #### L 100.0100, L501.0900, L3890.6005, L3890.6100, L509.8000, L500.4050, BTS, L3890.6300, L509.4005 ####[facility] [address] [place], [address] GAP 7 Normal 5-15 [facility] Comment on above: Performed By: #### L 100.0100, L501.0900, L3890.6005, L3890.6100, L509.8000, L500.4050, BTS, L3890.6300, L509.4005 ####[facility] [address] [place], [address] GFR/1.73 sq M.predicted among non-blacks MDRD (S/P/Bld) [Vol rate/Area] 147 mL/min/{1.73_m2} Normal >60 [facility] Comment on above: Result Comment: Non- GFR Calc Performed By: #### L 100.0100, L501.0900, L3890.6005, L3890.6100, L509.8000, L500.4050, BTS, L3890.6300, L509.4005 ####[facility] [address] [place], [address] Globulin (S) [Mass/Vol] 3.4 g/dL Normal 2.2-4.2 [facility] Comment on above: Performed By: #### L 100.0100, L501.0900, L3890.6005, L3890.6100, L509.8000, L500.4050, BTS, L3890.6300, L509.4005 ####[facility] [address] [place], [address] Glucose [Mass/Vol] 93 mg/dL Normal 74-106 [facility] Comment on above: Performed By: #### L 100.0100, L501.0900, L3890.6005, L3890.6100, L509.8000, L500.4050, BTS, L3890.6300, L509.4005 ####[facility] [address] [place], [address] Potassium [Moles/Vol] 3.6 mmol/L Normal 3.5-5.1 [facility] Comment on above: Performed By: #### L 100.0100, L501.0900, L3890.6005, L3890.6100, L509.8000, L500.4050, BTS, L3890.6300, L509.4005 ####[facility] [address] [place], [address] Sodium [Moles/Vol] 137 mmol/L Normal 136-145 [facility] Comment on above: Performed By: #### L 100.0100, L501.0900, L3890.6005, L3890.6100, L509.8000, L500.4050, BTS, L3890.6300, L509.4005 ####[facility] [address] [place], [address] T PROT 7.0 g/dL Normal 6.4-8.2 [facility] Comment on above: Performed By: #### L 100.0100, L501.0900, L3890.6005, L3890.6100, L509.8000, L500.4050, BTS, L3890.6300, L509.4005 ####[facility] [address] [place], [address] Urea nitrogen [Mass/Vol] 7 mg/dL Normal 7-18 [facility] Comment on above: Performed By: #### L 100.0100, L501.0900, L3890.6005, L3890.6100, L509.8000, L500.4050, BTS, L3890.6300, L509.4005 ####[facility] [address] [place], [address] Eosinophil percentageOrdered By: Thelma Taveras on 08-27-2024 Eosinophils/100 WBC (Bld) 1.7 % 0-5 [facility] Erythrocyte distribution wid th ratioOrdered By: Thelma Taveras on 08-27-2024 Erythrocyte distribution width (RBC) [Ratio] 13.3 % 11.6-14.6 [facility] Erythrocyte distribution wid th standard deviationOrdered By: Thelma Taveras on 08-27-2024 Erythrocyte distribution width (RBC) [Entitic vol] 43.9 fL 35.1-43.9 [facility] Erythrocyte distribution width (RBC) [Ratio] 43.9 fl 35.1-43.9 [facility] Estimated glomerular filtrat ion rate (GFR) AmericanOrdered By: Thelma Taveras on 08-27-2024 Estimated GFR (MDRD) Amer 178 mL/min >60 [facility] Comment on above: GFR Calc Glomerular filtration rate ( GFR) estimationOrdered By: Thelma Taveras on 08-27-2024 Estimated GFR (MDRD) Non-Af Amer 147 mL/min >60 [facility] Comment on above: Non- GFR Calc GFR/1.73 sq M.predicted among non-blacks MDRD (S/P/Bld) [Vol rate/Area] 147 mL/min/{1.73_m2} >60 [facility] Comment on above: Non- GFR Calc Glucose measurementOrdered B y: Thelma Taveras on 08-27-2024 Glucose [Mass/Vol] 93 mg/dL 74-106 [facility] HIV - WCHon 08-27-2024 HIV Non-Reactive Normal Nonreactive [facility] Comment on above: Order Comment: Reaso n for Exam: Performed By: #### L 100.0100, L501.0900, L3890.6005, L3890.6100, L509.8000, L500.4050, BTS, L3890.6300, L509.4005 ####[facility] [address] [place], [place], [id number] HIV 1 and HIV-2 antibody ass ay with HIV-1 p24 antigen detectionOrdered By: Thelma Taveras on 08-27-2024 HIV 1+2 Ab+HIV1 p24 Ag IA Ql Non-Reactive Nonreactive [facility] HIV 1+2 Ab+HIV1 p24 Ag IA Ql Ordered By: Thelma Contrerasirma on 08-27-2024 HIV (1&2) Antibody Non-Reactive Nonreactive [facility] Hematocrit Auto (Bld) [Volum e fraction]Ordered By: Thelma Robbinswenceslao on 08-27-2024 Hematocrit (Bld) [Volume fraction] 37.0 % 37-47 [facility] Hemoglobin measurementOrdere d By: Thelma Robbinswenceslao on 08-27-2024 Hemoglobin (Bld) [Mass/Vol] 12.1 g/dL 12.0-15.0 [facility] Hepatitis B Surface Antigeno n 08-27-2024 HEP B Surf Ag Non-Reactive Normal [facility] Comment on above: Order Comment: Reaso n for Exam: Performed By: #### L 100.0100, L501.0900, L3890.6005, L3890.6100, L509.8000, L500.4050, BTS, L3890.6300, L509.4005 ####[facility] [address] [facility] [place], [address] Hepatitis B surface antigen detectionOrdered By: Thelma Robbinswenceslao on 08-27-2024 Hepatitis B Surface Antigen Non-Reactive Nonreactive [facility] Hepatitis C Antibodyon 08-27 Hepatitis C AB Non-Reactive Normal [facility] Comment on above: Order Comment: Reaso n for Exam: Result Comment: Non Reactive: < 0.8 Equivocal: >/= 0.8 to < 1.0 Reactive: >/= 1.0 The CDC requires that a reactive/equivocal HCV antibody result be sent out for confirmation. HCV Quant by PCR testing. Performed By: #### L 100.0100, L501.0900, L3890.6005, L3890.6100, L509.8000, L500.4050, BTS, L3890.6300, L509.4005 ####[facility] [address] [place], [address] Hepatitis C virus antibody a ssayOrdered By: Thelma Taveras on 08-27-2024 Hepatitis C Antibody Non-Reactive Nonreactive [facility] Comment on above: Non Reactive: < 0.8 Equivocal: >/= 0.8 to < 1.0 Reactive: >/= 1.0The CDC requires that a reactive/equivocal HCV antibody result be sent out for confirmation. HCV Quant by PCR testing. Immature granulocytes/100 WB C Auto (Bld)Ordered By: Thelma Taveras on 08-27-2024 Immature granulocytes/100 WBC (Bld) 0.500 % 0.0-0.9 [facility] Comment on above: IG% - Immature Granu locytes (promyelocytes, myelocytes and metamyelocytes) > 1% indicates that a LEFT SHIFT is Present. L509.8000on 08-27-2024 Syphilis Abs Non-Reactive Normal [facility] Comment on above: Order Comment: Reaso n for Exam: Performed By: #### L 100.0100, L501.0900, L3890.6005, L3890.6100, L509.8000, L500.4050, BTS, L3890.6300, L509.4005 ####[facility] [address] [place], [address] Laboratory - Chemistry and C hemistry - challengeOrdered By: Thelma Taveras on 08-27-2024 AST [Catalytic activity/Vol] 12 U/L Low 15-37 [facility] Lymphocytes Auto (Unsp spec) [#/Vol]Ordered By: Thelma Taveras on 08-27-2024 Lymphocytes (Bld) [#/Vol] 1.96 10*3/uL 0.83-4.51 [facility] Lymphocytes/100 WBC Auto (Un sp spec)Ordered By: Thelma Taveras on 08-27-2024 Lymphocytes/100 WBC (Bld) 17.9 % Low 19-41 [facility] MCV (mean corpuscular volume ) determinationOrdered By: Thelma Taveras on 08-27-2024 MCV (RBC) [Entitic vol] 89.8 fL 81-99 [facility] Mean corpuscular hemoglobin (MCH) determinationOrdered By: Thelma Taveras on 08-27-2024 MCH (RBC) [Entitic mass] 29.4 pg 27.0-32.0 [facility] Mean corpuscular hemoglobin concentration (MCHC) determinationOrdered By: Thelma Taveras on 08-27-2024 MCHC (RBC) [Mass/Vol] 32.7 g/dL 32-36 [facility] Mean platelet volume determi nationOrdered By: Thelma Taveras on 08-27-2024 Platelet mean volume (Bld) [Entitic vol] 9.6 fL 6.2-12.0 [facility] Monocyte percentageOrdered B y: Thelma Taveras on 08-27-2024 Monocytes/100 WBC (Bld) 5.9 % 0-10 [facility] Neutrophil percentageOrdered By: Thelma Taveras on 08-27-2024 Neutrophils/100 WBC (Bld) 73.5 % High 47-70 [facility] Nucleated red blood cell per centageOrdered By: Thelma Taveras on 08-27-2024 Nucleated RBC/100 WBC (Bld) [Ratio] 0 % 0-5 [facility] Platelet countOrdered By: Juan F Taveras on 08-27-2024 Platelets (Bld) [#/Vol] 339 10*3/uL 150-450 [facility] Potassium measurementOrdered By: Thelma Taveras on 08-27-2024 Potassium [Moles/Vol] 3.6 mmol/L 3.5-5.1 [facility] Protein+Creatinine Ratio,Uri neon 08-27-2024 PROT:CRE RATIO 141 mg/g CRE Normal 0-200 [facility] Comment on above: Performed By: #### L 100.0100, L501.0900, L3890.6005, L3890.6100, L509.8000, L500.4050, BTS, L3890.6300, L509.4005 ####[facility] [address] [place], [address] Protein (U) [Mass/Vol] 14.5 mg/dL High <11.9 [facility] Comment on above: Performed By: #### L 100.0100, L501.0900, L3890.6005, L3890.6100, L509.8000, L500.4050, BTS, L3890.6300, L509.4005 ####[facility] [address] [place], [address] UR CREAT 103.00 mg/dL Normal NO RANGE EST. [facility] Comment on above: Performed By: #### L 100.0100, L501.0900, L3890.6005, L3890.6100, L509.8000, L500.4050, BTS, L3890.6300, L509.4005 ####[facility] [address] [place], [address] Protein/Creatinine (U) [Mass ratio]Ordered By: Thelma Taveras on 08-27-2024 Urine Protein/Creatinine Ratio 141 mg/g CRE 0-200 [facility] RBC Auto (Bld) [#/Vol]Ordere d By: Thelma Taveras on 08-27-2024 RBC (Bld) [#/Vol] 4.12 10*6/uL Low 4.2-5.4 [facility] Random urine protein measure mentOrdered By: Thelma Taveras on 08-27-2024 Protein (U) [Mass/Vol] 14.5 mg/dL High 0.0-11.8 [facility] Rubella IgGon 08-27-2024 Rubella IgG Reactive Normal Nonreactive [facility] Comment on above: Order Comment: Reaso n for Exam: Result Comment: Anti body Results Interpretation of Immune Status Non Reactive Presumed Non-Immune Equivocal Equivocal Reactive Presumed Immune Performed By: #### L 100.0100, L501.0900, L3890.6005, L3890.6100, L509.8000, L500.4050, BTS, L3890.6300, L509.4005 ####[facility] [address] [place], [address] Rubella immune status IgGOrd ered By: Thelma Taveras on 08-27-2024 Rubella IgG Antibody Reactive Nonreactive [facility] Comment on above: Antibody Results Int erpretation of Immune Status Non Reactive Presumed Non-Immune Equivocal Equivocal Reactive Presumed Immune Serum Treponema species anti body detectionOrdered By: Thelma Taveras on 08-27-2024 Treponema sp Ab Ql (S) Non-Reactive [facility] Serum anion gap measurementO rdered By: Thelma Taveras on 08-27-2024 Anion gap [Moles/Vol] 7 mmol/L 5-15 [facility] Serum globulin measurementOr dered By: Thelma Taveras on 08-27-2024 Globulin (S) [Mass/Vol] 3.4 g/dL 2.2-4.2 [facility] Serum or plasma alanine arzola otransferase (ALT) measurementOrdered By: Thelma aTveras on 08-27-2024 ALT [Catalytic activity/Vol] 14 U/L 13-56 [facility] Serum or plasma albumin trudi urement (mass/volume)Ordered By: Thelma Taveras on 08-27-2024 Albumin [Mass/Vol] 3.6 g/dL 3.2-5.0 [facility] Serum or plasma alkaline georgette sphatase measurementOrdered By: Thelma Taveras on 08-27-2024 ALP [Catalytic activity/Vol] 62 U/L 45-117 [facility] Serum or plasma calcium trudi urement (mass/volume)Ordered By: Thelma Taveras on 08-27-2024 Calcium [Mass/Vol] 9.0 mg/dL 8.5-10.1 [facility] Serum or plasma creatinine m easurement (mass/volume)Ordered By: Thelma Taveras on 08-27-2024 Creatinine [Mass/Vol] 0.53 mg/dL Low 0.55-1.02 [facility] Comment on above: The validity of the calculated GFR & GFRAA in patients over 70 years has not been determined. Clinical correlation is essential. Serum or plasma urea nitroge n measurement (mass/volume)Ordered By: Thelma Taveras on 08-27-2024 Urea nitrogen [Mass/Vol] 7 mg/dL 7-18 [facility] Sodium levelOrdered By: Arron acosta Darcy on 08-27-2024 Sodium [Moles/Vol] 137 mmol/L 136-145 [facility] Total proteinOrdered By: Lauri costa Darcy on 08-27-2024 Protein [Mass/Vol] 7.0 g/dL 6.4-8.2 [facility] Treponema sp Ab Ql (S)Ordere d By: Thelma Darcy on 08-27-2024 Syphilis Total Antibody Non-Reactive [facility] Type AND Screenon 08-27-2024 Ab SCREEN GEL Negative Normal [facility] Comment on above: Order Comment: PN Performed By: #### L 100.0100, L501.0900, L3890.6005, L3890.6100, L509.8000, L500.4050, BTS, L3890.6300, L509.4005 ####[facility] [address] [place], [place], [address] Urine creatinine measurement (mass/volume)Ordered By: Thelma Darcy on 08-27-2024 Creatinine (U) [Mass/Vol] 103.00 mg/dL NO RANGE EST. [facility] Urine protein/creatinine mas s ratioOrdered By: Thelma Taveras on 08-27-2024 Protein/Creatinine (U) [Mass ratio] 141 mg/g CRE 0-200 [facility] White blood cell (WBC) count Ordered By: Thelma Taveras on 08-27-2024 WBC (Bld) [#/Vol] 11.0 10*3/uL 4.4-11.0 [facility] PAP I-G w/rfx hrHPV-Aptimaon 08-20-2024 ADEQ Comment Normal . [facility] Comment on above: Order Comment: Speci men Comment: [id number] Specimen Comment: Source.............Cervix Specimen Comment: LMP / Prev Treat...[id number] Specimen Comment: Other.............. Specimen Comment: No. of containers..01 ThinPrep Vial Result Comment: Sati sfactory for evaluation. Endocervical and/or squamous metaplastic cells (endocervical component) are present. Performed By: #### L 7400.0353, L7000.1800, M100.2200 #### [facility] [address] [place], [place], [address] COMM . Normal . [facility] Comment on above: Order Comment: Speci men Comment: [id number] Specimen Comment: Source.............Cervix Specimen Comment: LMP / Prev Treat...[id number] Specimen Comment: Other.............. Specimen Comment: No. of containers..01 ThinPrep Vial Performed By: #### L 7400.0353, L7000.1800, M100.2200 #### [facility] [address] [place], [place], [address] COMMENT Comment Normal . [facility] Comment on above: Order Comment: Speci men Comment: [id number] Specimen Comment: Source.............Cervix Specimen Comment: LMP / Prev Treat...[id number] Specimen Comment: Other.............. Specimen Comment: No. of containers..01 ThinPrep Vial Result Comment: This liquid based ThinPrep(R) pap test was screened with the use of an image guided system. Performed By: #### L 7400.0353, L7000.1800, M100.2200 #### [facility] [address] [place], [place], [id number] DIAG Comment Normal . [facility] Comment on above: Order Comment: Speci men Comment: [id number] Specimen Comment: Source.............Cervix Specimen Comment: LMP / Prev Treat...[id number] Specimen Comment: Other.............. Specimen Comment: No. of containers..01 ThinPrep Vial Result Comment: NEGA TIVE FOR INTRAEPITHELIAL LESION OR MALIGNANCY. Performed By: #### L 7400.0353, L7000.1800, M100.2200 #### [facility] [address] [place], [address] HPV RFLX Comment Normal . [facility] Comment on above: Order Comment: Speci men Comment: [id number] Specimen Comment: Source.............Cervix Specimen Comment: LMP / Prev Treat...[id number] Specimen Comment: Other.............. Specimen Comment: No. of containers..01 ThinPrep Vial Result Comment: The HPV DNA reflex criteria were not met with this specimen result therefore, no HPV testing was performed. Performed at: - [facility] [address] [id number] Dermatopathologist: Dusty Luong MD, Phone: [phone] Performed at: - [address] [id number] Dermatopathologist: Bess Blood MD, Phone: [phone] Performed By: #### L 7400.0353, L7000.1800, M100.2200 #### [facility] [facility] [address] [place], [place], [address] PAPSMR Comment Normal . [facility] Comment on above: Order Comment: Speci men Comment: [id number] Specimen Comment: Source.............Cervix Specimen Comment: LMP / Prev Treat...[id number] Specimen Comment: Other.............. Specimen Comment: No. of containers..01 ThinPrep Vial Result Comment: The Pap smear is a screening test designed to aid in the detection of premalignant and malignant conditions of the uterine cervix. It is not a diagnostic procedure and should not be used as the sole means of detecting cervical cancer. Both false-positive and false-negative reports do occur. Performed By: #### L 7400.0353, L7000.1800, M100.2200 #### [facility] [address] [place], [address] PERFORM Comment Normal . [facility] Comment on above: Order Comment: Speci men Comment: [id number] Specimen Comment: Source.............Cervix Specimen Comment: LMP / Prev Treat...[id number] Specimen Comment: Other.............. Specimen Comment: No. of containers..01 ThinPrep Vial Result Comment: [employer], Hospice Art Therapist (ASCP) Performed By: #### L 7400.0353, L7000.1800, M100.2200 #### [facility] [address] [place], [address] Chlamydia/GC SHEN aptimaon CHLAMY,NUC ACID Negative Normal Negative [facility] Comment on above: Performed By: #### L 7400.0353, L7000.1800, M100.2200 #### [facility] [address] [place], [address] GC BY NUC ACID Negative Normal Negative [facility] Comment on above: Result Comment: Perf ormed at: =G - [facility] [address] [id number] Dermatopathologist: Bess Blood MD, Phone: [phone] Performed By: #### L 7400.0353, L7000.1800, M100.2200 #### [facility] [address] [place], [address] Urine Cultureon 08-16-2024 URC Below infection leve l. Mixed Gram Positive Organisms Minerva Count <1000 MIXC Mixed contaminants. Submit a new specimen if indicated. Normal [facility] Comment on above: Performed By: #### L 7400.0353, L7000.1800, M100.2200 #### [facility] [place], [address] C. trachomatis rRNA SHEN+prob e Ql (Unsp spec)Ordered By: Thelma Taveras on 08-14-2024 Chlamydia DNA (SHEN) Negative Negative [facility] Cervical or vagninal specime n microscopic examination by cytology stain (reported asOrdered By: Thelma Taveras on 08-14-2024 Cytology report Cyto stain Doc (Cvx/Vag) Comment . [facility] Comment on above: The Pap smear is a s creening test designed to aid in thedetection of premalignant and malignant conditions of theuterine cervix. It is not a diagnostic procedure andshould not be used as the sole means of detecting cervicalcancer. Both false-positive and false-negative reports dooccur. Chlamydia trachomatis rRNA d etection by probe and target amplification methodOrdered By: Thelma Taveras on 08-14-2024 C. trachomatis rRNA SHEN+probe Ql (Unsp spec) Negative Negative [facility] Card Writer Hand Cyto stain Nom (C vx/Vag) [ID]Ordered By: Thelma Taveras on 08-14-2024 Pap Smear Performed By Comment . [facility] Comment on above: Princess Tai, Cytotec hnologist (ASCP) Cytology report Cyto stain D oc (Cvx/Vag)Ordered By: Thelma Taveras on 08-14-2024 Thin Prep Pap Smear Comment . [facility] Comment on above: The Pap smear is a s creening test designed to aid in thedetection of premalignant and malignant conditions of theuterine cervix. It is not a diagnostic procedure andshould not be used as the sole means of detecting cervicalcancer. Both false-positive and false-negative reports dooccur. Image-guided ThinPrep PapOrd ered By: Thelma Taveras on 08-14-2024 Pap Smear Note Comment . [facility] Comment on above: This liquid based Th inPrep(R) pap test was screened withthe use of an image guided system. Image-guided liquid-based Pa pOrdered By: Thelma Taveras on 02-07-2025 Pap Smear Diagnosis Comment . [facility] Comment on above: NEGATIVE FOR INTRAEP ITHELIAL LESION OR MALIGNANCY. Image-guided liquid-based ce rvical Pap w high-risk HPV+reflex to HPV 16+18Ordered By: Thelma Taveras on 08-14-2024 Human Papillomavirus Screen Comment . [facility] Comment on above: The HPV DNA reflex c riteria were not met with this specimenresult therefore, no HPV testing was performed.Performed at: - [facility] [address] [id number] Director: Dusty Luong MD, Phone: [phone] at: [address] [id number] Director: Bess Blood MD, Phone: [phone] Laboratory - CytologyOrdered By: Thelma Taveras on 08-14-2024 Card Writer Hand Cyto stain Nom (Cvx/Vag) [ID] Comment . [facility] Comment on above: Princess Tai, Cytotec hnologist (ASCP) Laboratory - Miscellaneous t estsOrdered By: Thelma Taveras on 08-14-2024 Service comment (Unsp spec) [Interp] . . [facility] Neisseria gonorrhoeae nuclei c acid detection by amplified probe techniqueOrdered By: Thelma Taveras on 08-14-2024 N. gonorrhoeae DNA SHEN+probe Ql (Unsp spec) Negative Negative [facility] Comment on above: Performed at: =G - [address] [id number] Director: Bess Blood MD, Phone: [phone] No Panel InformationOrdered By: Thelma Taveras on 08-14-2024 Pap Smear Specimen Adequacy Comment . [facility] Comment on above: Satisfactory for bernardo luation. Endocervical and/or squamous metaplasticcells (endocervical component) are present. Senior Account Representative Office Visit Reporton 08-14-2024 Senior Account Representative Office Visit Report [facility] [address], [address] [place] [address] OFFICE VISIT Date of Service: 08/14/24 MR#: [id number] Acct: [id number] Name: NISSA CRAIN Rep #: [id number] : 1995 Provider: Dr. 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 Is patient in pain?: No Feel stressed/tense/nervous/an xious/difficulty sleeping: not at all Allergies No Known Allergies Allergy (Unverified 08/14/24 14:17) Medications ???Medication ???Instructions ???Recorded ???Confirmed ???Type docosahexaenoic acid 200 mg mg PO 07/31/24 08/14/24 History capsule ( DHA) Last Menstrual Period: 06/10/24 Zika: Zika virus screening: Negative : No Have you fallen in the past year?: No PFSH PFSH Family History Grandfather Stomach cancer Grandmother Breast cancer Social History adopted: No household members: spouse, children and other details: Pt's youger brother number of children: 1 current occupation: [employer] current occupational exposures/hazards: No pets and animals: Yes pets and animals: dog(s) history of recent travel: No sexually active: Yes Smoking Status: Never smoker alcohol intake: current alcohol intake frequency: holidays/special occasions only details: Not while substance use type: does not use well-balanced diet: daily or most days caffeine: Yes Type: carbonated beverages eating out: 1-3 times/week during the past year weight has: remained stable what type of physical activity do you participate in: none antoni/faith: None seatbelt use: always do you feel safe at home: Yes additional social history: : Martin Williamson History 2 Elective abortions Hx Para 1 Spontaneous abortions 0 Hx # Term Pregnancies 1 Ectopic pregnancies Hx # Pregnancies Multiple births # of living children 1 Past Pregnancies Del. Date Name GA/Weeks Outcome Route Bth Weight Gen Labor Lgth Anesthesia Del Locatn Provider FOB 04/08/22 Kia 37 live - full term 6lbs 9oz Male epidural Samariti an [facility] Delivery Date: 04/08/22 Last Updated by: Olive Day RN Induced for high blood pressure HPI NEW OB Details: NISSA CRAIN is a 29 year old who presents for New OB visit. OB Visit PERLA Calculator Estimated Delivery Date Method Current WG Current Estimate 03/17/25 LMP (Certain) 9w 2d Other Estimates 03/18/25 Ultrasound #1 9w 1d Estimated Due Date: 03/17/25 Expected Delivery Route/Plan Labor Preferences- CB/BF classes: [] labor support person: [] labor intervention preferences: [] pain management options preferred: [] cut cord/dad catch: [] : [] PP control planned: [] discussed possible routes of delivery and associated risks: [] special requests: [] Specific Issue/Plans Covid status: [] Flu vaccine: [] Tdap vaccine: [] Rhogam: [] LARC form signed: [] Problem list reviewed and updated with the most current plan of care details and appropriate orders placed. Relevant counseling for the gestational age provided. Continue routine care and follow up unless otherwise noted in visit notes/problem list details Initial Weight: Not Recorded Date -???-???-???-???-???-???- ???-???-???-???-???-???- EGA Weight BP Urine Prot -???-???-???-???-???-???- ???-???-???-???-???-???- Glucose FHR FuHt Pres Dilation -???-???-???-???-???-???- ???-???-???-???-???-???- Effaced St Visit Note 08/14/24 -???-???-???-???-???-???- ???-???-???-???-???-???- 9w 2d 141 lb 2 oz 126/74 -???-???-???-???-???-???- ???-???-???-???-???-???- 179 -???-???-???-???-???-???- ???-???-???-???-???-???- SM- CRL 9w1d cons with lmp Menstrual History Last Menstrual Period: 06/10/24 Reported LMP: definite Normal amount/duration: Yes Frequency in days: 28 On hormonal BC at conception: No hCG+: 07/14/24 Antepartum Record Genetic Screening: Congenital Heart Defect: Other, Neural Tube Defect: Other, Hemoglobinopathy Or Carrier: Other, Cystic Fibrosis: Other, Chromosome Abnormality: Other, Kevon-Sachs: Other, Hemophilia: Other, Intellectual Disability/Autism: Other, Recurrent Loss/Stillbirth: Other, Other Structural Defect: Other, Other Genetic Disease: Other and Maternal Metabolic Disorder: Other Infection History: Live with someone with TB or Exposed to TB: No, Patient or Partner has history of Genital Herpes: No, Rash or Viral illness since last mentrual period: No, Prior GBS-Infected child: (more content not included)... Normal [facility] Service comment (Unsp spec) [Interp]Ordered By: Thelma Taveras on 08-14-2024 Pap Smear Comment (3) . . [facility] Urine cultureOrdered By: Lauri Taveras on 08-14-2024 Bacteria identified Cx Nom (U) Positive Abnormal [facility] POCT SARS-COV-2/FLU/RSV PCR SYMPTOMATIC manually resultedon 07-29-2024 FLUAV RNA SHEN+probe Ql (Resp) Detected Abnormal Not Detected [facility] Work Phone: FLUBV RNA SHEN+probe Ql (Resp) Not detected Not Detected [facility] Work Phone: Interpretation and review of laboratory results Abnormal [facility] Work Phone: RSV RNA SHEN+probe Ql (Resp) Not detected Not Detected [facility] Work Phone: SARS-CoV-2 (COVID-19) RNA SHEN+probe Ql (Resp) Not detected Not Detected [facility] Work Phone: [facility] Work Phone: COVID-19, MOLECULARon 2022 SARS-CoV-2 (COVID-19) Ab IA Ql Not detected Normal Not Detected [facility] Comment on above: Result Comment: Test ing was performed using the St ID NOW COVID-19 assay on the ID NOW platform. This test has not been approved for use in asymptomatic patients and its performance in this patient population has not been evaluated. Negative results do not rule out the presence of SARS-CoV-2/COVID-19. Ambulatory Visit Summaryon 0 10-10-2022 Ambulatory Visit Summary NISSA CRAIN :1995 Visit Date:10/10/2022 Ambulatory Visit Instructions Your Diagnosis Sore throat Viral URI Mother currently breast-feeding Your Care Team Attending Physician - Rad Denney DO Discharge Vitals Temperature (Oral) 36.8 ?C Heart Rate (Peripheral) 97 Blood Pressure 100/66 Height 163 cm Height 64 in Weight 53.6 kg Weight 117.92 lb BMI 20.17 Allergies No Known Allergies Problems Ongoing - Any problem that you are currently receiving treatment for. Mother currently breast-feeding [facility]ardo [facility] Family Medicine Office/Clini c Noteon 10-10-2022 Family Medicine Office/Clinic Note Chief Complaint Sore throat HPI Staff Freda is a 27 y.o. female here for sore throat She states she has a Headache She states mild nasal drainage She states she has a Sore throat She states mild cough- non productive She denies chest pain/wheezing She denies abdominal pain-N/V She denies fever Symptoms Started one day prior Treated with Tylenol She does not have school aged children She is currently breast feeding History of Present Illness HPI staff confirmed exposed to strep in her nieces and nephews 4 days ago Review of Systems PHQ Score Initial Depression Screen Score: 0 Physical Exam Vitals & Measurements T: 36.8 ?C(Oral) HR: 97(Peripheral) BP: 100/66 SpO2: 99% HT: 64 in HT: 163 cm WT: 53.6 kg WT: 117.92 lb BMI: 20.17 Constitutional: Vital signs reviewed; Nissa is well nourished, no acute distress - patient is Afebrile Head: Atraumatic, normocephalic Neck: Trachea is midline, there is MILD tenderness in the anterior lymph nodes Eye: EOMI, normal conjunctiva ENT: Moist oral mucosa Pharyngeal erythema is MINIMALLY present Tender, swollen lymph nodes are present Fever is NOT present Lungs: Clear to auscultation, non-labored respiration Heart: Normal rate and rhythm, normal peripheral perfusion Assessment/Plan 1. Sore throat (J02.9: Acute pharyngitis, unspecified) Acute New to nm Symptoms are MILD Centor criteria reviewed Likely viral Discussed rationale for swab Results of rapid are NEGATIVE Discussed symptomatic treatment with tylenol and/or NSAIDs *verify with OB what she is allowed to take since she's Salt water gargle Lozenges Answered all of the patient's / parent's questions F/u PRN Ordered: Rapid Strep POC 70855 2. Viral URI (J06.9: Acute upper respiratory infection, unspecified) likely plays a role in #1 3. Mother currently breast-feeding (Z39.1: Encounter for care and examination of lactating mother) *discuss with OB what meds to take Follow-up No qualifying data available Problem List/Past Medical History Ongoing Viral URI Historical No qualifying data Medications No active medications Allergies No Known Allergies Social History Tobacco Never (less than 100 in lifetime) Tobacco Use:. Never Smokeless Tobacco Use:., 10/10/2022 Immunizations Vaccine Date Status diphtheria/pertussis, acel/tetanus adult 01/26/2022 Recorded SARS-CoV-2 (COVID-19) mRNA-1273 vaccine 06/05/2021 Recorded SARS-CoV-2 (COVID-19) mRNA-1273 vaccine 05/08/2021 Recorded Normal [facility] Comment on above: Result Comment: Elec tronically Signed By: Rad Denney DO\Date and Time Signed: 10/10/22 17:40 EDT CBC AND DIFFERENTIALon 09-14 % AUTOMATED IMMATURE GRAN 0.1 % Normal 0.0 - 0.9 [facility] Comment on above: Result Comment: Danielle ture Granulocyte Count (IG) includes promyelocytes, myelocytes and metamyelocytes but does not include bands. Percent differential counts (%) should be interpreted in the context of the absolute cell counts (cells/L). Performed By: #### C BCDF #### [address] [address] Basophils (Bld) [#/Vol] 0.03 10*3/uL Normal 0.00 - 0.10 [facility] Comment on above: Performed By: #### C BCDF #### [address] [address] Basophils/100 WBC (Bld) 0.4 % Normal 0.0 - 2.0 [facility] Comment on above: Performed By: #### C BCDF #### [address] [address] Eosinophils (Bld) [#/Vol] 0.09 10*3/uL Normal 0.00 - 0.70 [facility] Comment on above: Performed By: #### C BCDF #### [address] [address] Eosinophils/100 WBC (Bld) 1.3 % Normal 0.0 - 6.0 [facility] Comment on above: Performed By: #### C BCDF #### [address] [address] Erythrocyte distribution width (RBC) [Ratio] 14.6 % High 11.5 - 14.5 [facility] Comment on above: Performed By: #### C BCDF #### [address] [address] Hematocrit (Bld) [Volume fraction] 38.4 % Normal 36.0 - 46.0 [facility] Comment on above: Performed By: #### C BCDF #### [address] [address] Hemoglobin (Bld) [Mass/Vol] 12.4 g/dL Normal 12.0 - 16.0 [facility] Comment on above: Performed By: #### C BCDF #### [address] [address] Lymphocytes (Bld) [#/Vol] 1.55 10*3/uL Normal 1.20 - 4.80 [facility] Comment on above: Performed By: #### C BCDF #### [address] [address] Lymphocytes/100 WBC (Bld) 22.6 % Normal 13.0 - 44.0 [facility] Comment on above: Performed By: #### C BCDF #### [address] [address] MCHC (RBC) [Mass/Vol] 32.3 g/dL Normal 32.0 - 36.0 [facility] Comment on above: Performed By: #### C BCDF #### [address] [address] MCV (RBC) [Entitic vol] 90 fL Normal 80 - 100 [facility] Comment on above: Performed By: #### C BCDF #### [address] [address] Monocytes (Bld) [#/Vol] 0.44 10*3/uL Normal 0.10 - 1.00 [facility] Comment on above: Performed By: #### C BCDF #### [address] [address] Monocytes/100 WBC (Bld) 6.4 % Normal 2.0 - 10.0 [facility] Comment on above: Performed By: #### C BCDF #### [address] [address] Neutrophils (Bld) [#/Vol] 4.74 10*3/uL Normal 1.20 - 7.70 [facility] Comment on above: Result Comment: Perc ent differential counts (%) should be interpreted in the context of the absolute cell counts (cells/L). Performed By: #### C BCDF #### [address] [address] Neutrophils/100 WBC (Bld) 69.2 % Normal 40.0 - 80.0 [facility] Comment on above: Performed By: #### C BCDF #### [address] [address] Platelets (Bld) [#/Vol] 282 10*3/uL Normal 150 - 450 [facility] Comment on above: Performed By: #### C BCDF #### [address] [address] RBC 4.27 x10E12/L Normal 4.00 - 5.20 [facility] Comment on above: Performed By: #### C BCDF #### [address] [address] WBC (Bld) [#/Vol] 6.9 10*3/uL Normal 4.4 - 11.3 [facility] Comment on above: Performed By: #### C BCDF #### [address] [address] CHEST 1 VIEWon 09-14-2022 CHEST 1 VIEW Patient Name: NISSA CRAIN STUDY: CHEST 1 VIEW; 09/14/2022 9:49 am INDICATION: Chest Pain . COMPARISON: None. ACCESSION NUMBER(S): [id number] ORDERING CLINICIAN: SCOTTIE UMANZOR FINDINGS: CARDIOMEDIASTINAL SILHOUETTE: Cardiomediastinal silhouette is normal in size and configuration. LUNGS: Lungs are clear. ABDOMEN: No remarkable upper abdominal findings. BONES: No acute osseous changes. IMPRESSION: 1. No evidence of acute cardiopulmonary process. Electronically signed by: CONY KEENAN MD Normal [facility] COMPREHENSIVE PANELon 2022 Albumin [Mass/Vol] 4.2 g/dL Normal 3.4 - 5.0 [facility] Comment on above: Performed By: #### C OINP #### [address] [address] ALP [Catalytic activity/Vol] 105 U/L Normal 33 - 110 [facility] Comment on above: Performed By: #### C OINP #### [address] [address] ALT [Catalytic activity/Vol] 10 U/L Normal 7 - 45 [facility] Comment on above: Result Comment: Vicki ents treated with Sulfasalazine may generate falsely decreased results for ALT. Performed By: #### C OINP #### [address] [address] Anion gap [Moles/Vol] 13 mmol/L Normal 10 - 20 [facility] Comment on above: Performed By: #### C OINP #### [address] [address] AST [Catalytic activity/Vol] 14 U/L Normal 9 - 39 [facility] Comment on above: Performed By: #### C OINP #### [address] [address] Bilirubin [Mass/Vol] 2.0 mg/dL High 0.0 - 1.2 [facility] Comment on above: Performed By: #### C OINP #### [address] [address] Calcium [Mass/Vol] 9.1 mg/dL Normal 8.6 - 10.3 [facility] Comment on above: Performed By: #### C OINP #### [address] [address] Chloride [Moles/Vol] 106 mmol/L Normal 98 - 107 [facility] Comment on above: Performed By: #### C OINP #### [address] [address] Creatinine [Mass/Vol] 0.70 mg/dL Normal 0.50 - 1.05 [facility] Comment on above: Performed By: #### C OINP #### [address] [address] eGFR FEMALE >90 Normal >90 [facility] Comment on above: Result Comment: CALC ULATIONS OF ESTIMATED GFR ARE PERFORMED USING THE 2020 CKD-EPI STUDY REFIT EQUATION WITHOUT THE RACE VARIABLE FOR THE IDMS-TRACEABLE CREATININE METHODS. https://jasn.asnjournals.org/content//ASN.86542 19898 Performed By: #### C OINP #### [address] [address] Glucose [Mass/Vol] 85 mg/dL Normal 74 - 99 [facility] Comment on above: Performed By: #### C OINP #### [address] [address] HCO3 (Bld) [Moles/Vol] 24 mmol/L Normal 21 - 32 [facility] Comment on above: Performed By: #### C OINP #### [address] [address] Potassium [Moles/Vol] 4.1 mmol/L Normal 3.5 - 5.3 [facility] Comment on above: Performed By: #### C OINP #### [address] [address] Protein [Mass/Vol] 6.7 g/dL Normal 6.4 - 8.2 [facility] Comment on above: Performed By: #### C OINP #### [address] [address] Sodium [Moles/Vol] 139 mmol/L Normal 136 - 145 [facility] Comment on above: Performed By: #### C OINP #### [address] [address] Urea nitrogen [Mass/Vol] 17 mg/dL Normal 6 - 23 [facility] Comment on above: Performed By: #### C OINP #### [address] [address] Covid 19 Resultson 3 SARS-CoV-2 (COVID-19) RNA SHEN+probe Ql (Unsp spec) NEGATIVE COVID-19 Test Coronaviruses are common world-wide and are the cause of many common colds. SARS-COV2 is a new coronavirus that began circulating worldwide in 2019 so we are calling it COVID-19. It has been estimated that four out of five patients with COVID-19 will recover at home without the need for medical attention. Symptoms of COVID-19 may include cough, fever, shortness of breath, loss of taste or smell and other flu-like symptoms including chills, sore muscles, sore throat, and headache. Severe illness is more common in older people and people with other health problems such as high blood pressure, obesity, and immune system problems. If the test is positive, you have COVID-19. You will be contacted by the ordering physicians office and instructed to remain on home isolation, in accordance with CDC guidelines. You may also be contacted by the [facility] to see if any of your close contacts may have been exposed to the virus and need to quarantine. If the test is negative, you likely do not have COVID-19 at this time, but you still may have a different illness that can spread to other people (like Influenza, or the Flu) and could still be at risk for getting COVID-19. We recommend that you stay away from other people to limit the spread of illness until your symptoms are improving and you are fever-free for 24 hours without the use of fever lowering medications such as acetaminophen or ibuprofen. No test is 100% accurate so if you are still concerned you may have COVID-19, talk to your doctor about the need to continue to stay away from others. Medicines Unless your provider told you not to use the following: Acetaminophen (Tylenol and others) is generally safe. Anti-inflammatory medications, such as Ibuprofen (Advil or Motrin) or Naproxen (Aleve) can also be used. Kqba-blk-bmmqihc cough and cold medicines can be used according to the instructions on the package. Some xzsl-qtd-anidhue medicines also contain acetaminophen. Make sure you are not taking more than your recommended dose. For those not hospitalized, there is no specific treatment available for this illness. Antibiotics do not treat Coronaviruses. Follow-Up Follow up with your doctor by scheduling a virtual visit or consider follow-up at one of our urgent care fever clinics. If you are having difficulty breathing, or are very weak and having difficulty standing, this is a medical emergency. Call 911 or have someone take you to the nearest emergency room immediately. If possible, wear a facemask. Additional guidance from the CDC for patients who tested POSITIVE for COVID-19 How to isolate: Isolate yourself in a specific room at home and limit your contact with others. Use a separate bathroom from other members of the household, when possible. Leave home only to get essential medical care. Do not go to work, school or public areas. Avoid using public transportation, ride-sharing, or taxis. Restrict contact with pets and other animals. If you must care for your pet or be around animals while you are sick, wash your hands before and after your interaction and wear a facemask. Make sure that shared spaces in the home have good airflow, such as by an air conditioner or an opened window, weather permitting. Personal Hygiene Procedures: Wear a face mask when in the same room as other people or pets. If a face mask interferes with your breathing, others should wear a mask when sharing space with you. Frequent hand-washing: wash your hands with soap and water for at least 20 seconds. If soap and water are not available, use alcohol-based hand supervisor metal placing. Avoid touching your eyes, nose, and mouth with unwashed hands. Household Hygiene Procedures: Avoid sharing personal household items such as dishes, glassware, cups, eating utensils, towels or bedding with other people or pets in your home. After use, these items should be washed with soap and hot water. Disinfect all high-touch surfaces every day with antibacterial cleaning solutions such as Lysol wipes, bleach, cleansers, etc. High-touch surfaces include tabletops, doorknobs, bathroom fixtures, toilets, phones, keyboards, tablets and bedside tables. Immediately clean any surfaces that may have blood, poop or body fluids on them, using antibacterial cleaning solutions such as Lysol wipes, bleach, cleansers, etc. If clothing or bedding come into contact with blood, poop or body fluids, they should be washed immediately. Follow the directions on the laundry detergent and clothing labels but hot water is recommended when possible. Stopping home isolation precautions: If possible, consult your doctor before stopping home isolation precautions. According to the CDC, you can discontinue home isolation precautions when you have met both of these criteria: Your fever and respiratory symptoms have been gone for 24 terri (more content not included)... Normal [facility] D-DIMER, VTE EXCLUSIONon D-DIMER, VTE EXCLUSION 344 ng/mL FEU Normal < or = 500 [facility] Comment on above: Result Comment: The VTE Exclusion D-Dimer assay is reported in ng/mL Fibrinogen Equivalent Units (FEU). Per manufacturers instructions for use, a value of less than 500 ng/mL (FEU) may help to exclude DVT or PE in outpatients when the assay is used with a clinical pretest probability assessment. (AEMR must utilize and document eCalc Wells Score Deep Vein Thrombosis Risk for DVT exclusion only; Emergency Department should utilize Guidelines for Emergency Department Use of the VTE Exclusion D-Dimer and Clinical Pretest probability assessment model for DVT or PE exclusion.) Performed By: #### D IMEX #### [place] [address] GROUP A STREP,PCRon 09-15-19 23 GROUP A STREP,PCR Not detected Normal [facility] Detected [facility] Comment on above: Result Comment: This test was performed utilizing an FDA-cleared rapid nucleic acid amplification by PCR to qualitatively detect Group A Streptococci from throat swab specimens without the need for culture confirmation of negative results. Performed By: #### G APC1 #### [place] [address] Lab Specimen Source Throat Normal [facility] Comment on above: Performed By: #### G APC1 #### [place] [id number] HCG,BETA-QUANTITATIVEon 09-05 HCG,BETA-QUANTITATIVE <2 Normal [facility] Comment on above: Result Comment: . Total HCG measurement is performed using the Wes Demet[employer] Access Immunoassay which detects intact HCG and free beta HCG subunit. . This test is not indicated for use as a tumor marker. HCG testing is performed using a different test methodology at [facility] than other [facility]. Direct result comparison should only be made within the same method. REF VALUES NON FEMALE <5 MALES <5 Performed By: #### C OINP #### [place] [id number] INFLUENZA A/B, COVID 2019 PC R,SYMPTOMATICon 09-14-2022 INFLUENZA A, PCR Not detected Normal Not Detected [facility] Comment on above: Result Comment: Resp iratory virus testing is performed routinely by PCR for Influenza A/B and RSV. Not Detected results do not preclude Influenza A/B or RSV infections since the adequacy of sample collection or low viral burden may impact the clinical sensitivity of this test method. Performed By: #### C OINP #### [place] [address] INFLUENZA B, PCR Not detected Normal Not Detected [facility] Comment on above: Result Comment: Resp iratory virus testing is performed routinely by PCR for Influenza A/B and RSV. Not Detected results do not preclude Influenza A/B or RSV infections since the adequacy of sample collection or low viral burden may impact the clinical sensitivity of this test method. Performed By: #### C OINP #### [place] [address] SARS-CoV-2 (COVID-19) RNA SHEN+probe Ql (Unsp spec) Not detected Normal Not Detected [facility] Comment on above: Result Comment: . This test has received FDA Emergency Use Authorization (EUA) and has been verified by [facility]. This test is only authorized for the duration of time that circumstances exist to justify the authorization of the emergency use of in vitro diagnostic tests for the detection of SARS-CoV-2 virus and/or diagnosis of COVID-19 infection under section 564(b)(1) of the Act, 21 U.S.C. 360bbb-3(b)(1), unless the authorization is terminated or revoked sooner. [facility] is certified under CLIA-88 as qualified to perform high complexity testing. Testing is performed in the [facility] laboratory located at [address] [place] [address]. SARS-CoV-2/Flu/RSV Multiplex Test: Fact sheet for providers: https://www.fda.gov/media/706508/download Fact sheet for patients: https://www.fda.gov/media/447979/download Performed By: #### C OINP #### [place] [address] Lab Specimen Source Nasal, Nasopharyngeal Normal [facility] Comment on above: Performed By: #### C OINP #### [place] [address] Provider Note - ED v3on 09-05 Provider Note - ED v3 Provider Note: Chart Review: ED NOTES ED NOTES: Source of Information: Patient. Patient's mother. EMR was reviewed for previous records. ----- HPI: Multiple complaints. This 27-year-old white female presents to the ED with her child and mother secondary to complaint of cough that she has had for several days she states that this morning when she woke up she felt as though something was in her esophagus. She then began to experience sharp stabbing chest pain and some chest pressure. Denies any leg pain or swelling. Denies the use of control pills. She denies history of smoking. Mother indicates that there is a history of heart disease on her side of the family. Patient without any previous history of heart problems or heart disease. Patient states that nothing makes her symptoms better or worse. ----- PMH: Denies PSH: Denies Social Hx: The patient denies any use of tobacco, alcohol or illicit drugs. Fam: MEDS: Denies ALLERGIES: NKDA ----- PHYSICAL EXAM: General: Patient alert, awake, oriented X3, appears to be in no obvious distress, nontoxic, cooperative Skin: Warm. Dry. Intact. No rash. Eyes: PEARTLA, EOMIs intact, sclera white, conjunctiva clear HEENT: Atraumatic. Normo-cephalic. Oral and nasal mucosa pink and moist. The oropharynx has mild erythema there is no evidence of retropharyngeal swelling or uvular deviation. Neck: Supple without meningismus, no lymphadenopathy. CV: Regular rate and rhythm without murmurs, heaves, lifts or thrills. Respiratory: Nonlabored breathing. There are no retractions or tachypnea. Lungs are clear to auscultation bilaterally. GI: Soft, nontender, without gross distention, bowel sounds present in all 4 quadrants. There is no pulsatile masses. There is no CVA tenderness. No rebound, rigidity or guarding. MUSC: There is no joint swelling or bony tenderness on exam. Neuro: Cranial nerves II - XII grossly intact. No focal neurologic deficits are noted on exam. Lower extremities: There is no peripheral edema bilaterally, negative Homans sign. No palpable cords. Distal pulses are +2/4 and present in both lower extremities. Psych: Maintains eye contact. Cooperative. ----- ED course: EKG was interpreted by myself at 8:40 AM reveals normal sinus rhythm with sinus rhythm at 96 bpm. The RI interval is 132 ms. The QRS duration is 74 ms. The QTc is 432 ms. [place] is 7 degrees. Patient was seen and evaluated due to complaints of chest discomfort and swelling of her esophagus. Patient EKG performed that was unremarkable for acute abnormality. Lab work revealed normal troponin and D-dimer was negative. Patient CBC was unremarkable electrolytes are normal except for bilirubin of 2. Patient was not . Rapid strep was negative and testing for flu and COVID were negative. Chest x-ray revealed no acute disease process. I had a detailed discussion the patient and patient's mother prior to discharge the patient home she was referred to follow-up with Dr. Cruz since she does not have a primary care doctor. This chart was dictated with the use of [employer] software within the framework of the current electronic medical records software. Attempts were made to edit in real time, given time constraints there is the potential for inaccuracies in my dictation. Scottie Umanzor, DO HISTORY OF PRESENTING ILLNESS NISSA is a 27 year old Female and was seen by me at 14-Sep-2022 08:48 for a chief complaint of chest pain (states she woke during the night with feeling like her throat is swollen and difficulty swallowing, the c/o upper chest pain. denies sob. c/o cough)(1). Triage Information: Most recent Vital Sign Value Date Temp (F): 97 09-14-2022 08:48 Temp (C): 36.1 09-14-2022 08:48 Heart Rate (beats/min): 104 09-14-2022 08:48 Respirations (breaths/min): 18 09-14-2022 08:48 SpO2 (%): 99 09-14-2022 08:48 BP Systolic (mm Hg): 134 09-14-2022 08:48 BP Diastolic (mm Hg): 73 09-14-2022 08:48 PAST MEDICAL HISTORY CURRENT OR FORMER SUBSTANCE USE: Tobacco/Nicotine Use: never smoker Alcohol Use: denies Drug Use: denies,ALLERGIES/INTOLERA NCES: No Known Allergies HEALTH HISTORY: No documented data. OUTPATIENT MEDICATIONS: Home Medications Review Status for Reconciliation: Complete Med Status: Patient Currently Takes Medications Drug Name: 1 oral capsule (more content not included)... Normal [facility] Risk Screen - Adult Emergenc yon 09-14-2022 Risk Screen - Adult Emergency Preferred Language: Preferred Language: Preferred Language for Discussing Health Care (patient/designee)[place]i Patient Preferred Pharmacy: Patient Preferred Pharmacy Statement: I have reviewed and updated the patient's preferred pharmacy selection for today's visit. Advanced Directives: Advance Directive/DNRno Family Violence Adult: Abuse Screen: Are you or have you been threatened or abused physically, emotionally, or sexually by anyoneno Learning Assessment (Patient): Learning Assessment (Patient): Patient is Able to be Assessed for Learningyes Factors Influencing Readiness to Learnn/a Factors that Impact Ability to Learnnone Devices/Methods Used to Communicatenone Learning Preferencesverbal instruction Cultural Considerationsnone Developmental Considerationsnone Yazidism Considerationsnone Other Learnersfamily Learning Assessment (Other Learner): Learning Assessment (Other Learner): Other learner availableyes... Learnerfamily Factors Influencing Readiness to Learnn/a Factors that Impact Ability to Learnnone Devices/Methods Used to Communicatenone Learning Preferencesverbal instruction Cultural Considerationsnone Developmental Considerationsnone Yazidism Considerationsnone Pressure Injury/TB/Substance: Pressure Injury: Do you have a coughyes... Has your cough lasted longer than 2 weeksno Smoking Statusnever smoker Alcohol Usedenies Drug Usedenies Admission Risk Screen: Significant IndicatorsComplete CAGE: CAGE: Is this an injured patient at a Trauma Center ([facility]/[place]/ [place]): no Electronic Signatures: Mariana Kirk (JONATHON) (Signed 14-Sep-2022 08:54) Authored: Preferred Language, Patient Preferred Pharmacy, Advanced Directives, Family Violence Adult, Learning Assessment (Patient), Learning Assessment (Other Learner), Pressure Injury/TB/Substance, Pressure Injury, CAGE Last Updated: 14-Sep-2022 08:54 by Mariana Kirk (JONATHON) Normal [facility] TROPONIN I, HIGH SENSITIVITY on 09-14-2022 TROPONIN I, HIGH SENSITIVITY <3 Normal 0 - 13 [facility] Comment on above: Result Comment: . Less than 99th percentile of normal range cutoff- Female and children under 18 years old <14 ng/L; Male <21 ng/L: Negative Repeat testing should be performed if clinically indicated. . Female and children under 18 years old 14-50 ng/L; Male 21-50 ng/L: Consistent with possible cardiac damage and possible increased clinical risk. Serial measurements may help to assess extent of myocardial damage. . >50 ng/L: Consistent with cardiac damage, increased clinical risk and myocardial infarction. Serial measurements may help assess extent of myocardial damage. . NOTE: Children less than 1 year old may have higher baseline troponin levels and results should be interpreted in conjunction with the overall clinical context. . NOTE: Troponin I testing is performed using a different testing methodology at [facility] than at other [facility]. Direct result comparisons should only be made within the same method. Performed By: #### C NP #### [facility] [address] [place] [id number] Triage - EDon 09-14-2022 Triage - ED Quick Triage: Are You no Have You Given In The Last 6 Weeksno Are You Currently Breastfeedingyes Chart Review: PRIMARY ASSESSMENT ABCD Normal Findings: airway open and patent, circulation normal and alert and oriented ARRIVAL INFORMATION Means of Arrival: Ambulatory Mode of Arrival: private vehicle Arrival From: home Accompanied By: self Language: Spoken Language Preferred: Kuwaiti Reading Language Preferred: [place]i Present on Arrival: Device Present on Arrival to ED: no CHIEF COMPLAINT NISSA CRAIN is a Female patient with a chief complaint of chest pain (states she woke during the night with feeling like her throat is swollen and difficulty swallowing, the c/o upper chest pain. denies sob. c/o cough). Triage Date/Time: 14-Sep-2022 08:38 TELMA: 2 Pain Rating (0-10): 3 = Mild Pain location: upper chest Vital Signs: Temperature: 97.0F ( 36.1C) taken temporal Blood Pressure: 134/73 Mean: Heart Rate: 104 Respiratory Rate: 18 Pulse Oximetry: 99% on room air, no respiratory support. Height: 5 feet 0.00 inches. 152.4 CM Weight: 115.3 pounds. Calculated 52.3 kg. (stated) Calculated BMI (kg/m2): 22.518 Calculated BSA (m2) 1.49 [place] Coma Scale: Best Eye Response: (E4) spontaneous Best Motor Response: (M6) obeys commands Best Verbal Response: (V5) oriented [place] Score: 15 Allergies: no Last menstrual period: unknown Patient has homicidal thoughts: no Symptoms Are POSITIVE For: pain Symptoms Are Negative For: dyspnea Risk Screens Suicide Risk Screen In the Past Month: Have you wished you were or wished you could go to sleep and not wake up no In the Past Month: Have you had any actual thoughts of killing yourself no In Your Lifetime: Have you ever done anything, started to do anything, or prepared to do anything to end your life no Barr Fall Scale Screening Has the patient fallen before (or is the patient in the ED as a result of a fall) has not had a fall Does the patient have an impaired gait does not have impaired gait Is the patient cognitively impaired not cognitively impaired Interventions: Barr Fall Interventions: LOW INTERVENTIONS: *patient oriented to surroundings and call system, * patient/family falls education completed and documented, *patients fall status communicated during bedside handoff, *whiteboard updated, *mode of toileting discussed with patient, *bed in low position with brakes locked, *call light in reach, * non-skid footwear TRAVEL HISTORY Travel History Coronavirus Screening: no exposure or symptoms Travel Exposure History: NO travel to International locations in the past 30 days PAIN Pain Scale Used: RAMON Pain Rating (0-10): 3 = Mild Past Medical History: Past Medical History Reviewedyes Electronic Signatures: Mariana Kirk (JONATHON) (Signed 14-Sep-2022 08:53) Entered: Risk Screens, Pain, Arrival, ABCD, Travel History, Chart Review, Scores, Past Medical History Authored: Quick Triage, Risk Screens, Pain, Arrival, ABCD, Travel History, Chart Review, Scores, Past Medical History Last Updated: 14-Sep-2022 08:53 by Mariana Kirk (JONATHON) [facility] Ambulatory Visit Summaryon 1 08-27-2021 Ambulatory Visit Summary NISSA CRAIN :1995 Visit Date:06/26/2022 Ambulatory Visit Instructions Your Diagnosis Conjunctivitis, right eye Acute nasopharyngitis Your Care Team Attending Physician - Mansoor NARAYANAN, MAILE, Monika Luis This Is Your Medications List polymyxin B-trimethoprim ophthalmic (polymyxin B-trimethoprim Opth Radha) Discharge Vitals Temperature (Oral) 36.8 ?C Heart Rate (Peripheral) 94 Blood Pressure 120/74 Height 163 cm Height 64 in Weight 54 kg Weight 118.8 lb BMI 20.32 Medications What How Much When Why Instructions New polymyxin B-trimethoprim ophthalmic (polymyxin B-trimethoprim Opth Radha) 1 Drops Ophthalmic Every 3 hours Conjunctivitis, right eye Duration: 7 Days Pickup at [facility]/pharmacy #[id number] Pharmacy Information [facility]/pharmacy #[id number]: [address] [place], [place] [id number] [phone] Allergies No Known Allergies Education Materials Bacterial Conjunctivitis, Adult Bacterial conjunctivitis is an infection of the clear membrane that covers the white part of your eye and the inner surface of your eyelid (conjunctiva). When the blood vessels in your conjunctiva become inflamed, your eye becomes red or pink, and it will probably feel itchy. Bacterial conjunctivitis spreads very easily from person to person (is contagious). It also spreads easily from one eye to the other eye. What are the causes? This condition is caused by bacteria. You may get the infection if you come into close contact with: ? A person who is infected with the bacteria. ? Items that are contaminated with the bacteria, such as a face towel, contact lens solution, or eye makeup. What increases the risk? You are more likely to develop this condition if you: ? Are exposed to other people who have the infection. ? Wear contact lenses. ? Have a sinus infection. ? Have had a recent eye injury or surgery. ? Have a weak body defense system (immune system). ? Have a medical condition that causes dry eyes. What are the signs or symptoms? Symptoms of this condition include: ? Thick, yellowish discharge from the eye. This may turn into a crust on the eyelid overnight and cause your eyelids to stick together. ? Tearing or watery eyes. ? Itchy eyes. ? Burning feeling in your eyes. ? Eye redness. ? Swollen eyelids. ? Blurred vision. How is this diagnosed? This condition is diagnosed based on your symptoms and medical history. Your health care provider may also take a sample of discharge from your eye to find the cause of your infection. This is rarely done. How is this treated? This condition may be treated with: ? Antibiotic eye drops or ointment to clear the infection more quickly and prevent the spread of infection to others. ? Oral antibiotic medicines to treat infections that do not respond to drops or ointments or that last longer than 10 days. ? Cool, wet cloths (cool compresses) placed on the eyes. ? Artificial tears applied 2?6 times a day. Follow these instructions at home: Medicines ? Take or apply your antibiotic medicine as told by your health care provider. Do not stop taking or applying the antibiotic even if you start to feel better. ? Take or apply pxzq-dra-zxwmtyn and prescription medicines only as told by your health care provider. ? Be very careful to avoid touching the edge of your eyelid with the eye-drop bottle or the ointment tube when you apply medicines to the affected eye. This will keep you from spreading the infection to your other eye or to other people. Managing discomfort ? Gently wipe away any drainage from your eye with a warm, wet washcloth or a cotton ball. ? Apply a clean, cool compress to your eye for 10?20 minutes, 3?4 times a day. General instructions ? Do not wear contact lenses until the inflammation is gone and your health care provider says it is safe to wear them again. Ask your health care provider how to sterilize or replace your contact lenses before you use them again. Wear glasses until you can resume wearing contact lenses. ? Avoid wearing eye makeup until the inflammation is gone. Throw away any old eye cosmetics that may be contaminated. ? Change or wash your pillowcase every day. ? Do not share towels or washcloths. This may spread the infection. ? Wash your hands often with soap and water. Use paper towels to dry your hands. ? Avoid touching or rubbing your eyes. ? Do not drive or use heavy machinery if your vision is blurred. Contact a health care provider if: ? You have a fever. ? Your symptoms do not get better after 10 days. Get help right away if you have: ? A fever and your symptoms suddenly get worse. ? Severe pain when you move your eye. ? Facial pain, redness, or swelling. ? Sudden loss of vision. Summary ? Bacterial conjunctivitis is an infection of the clear membrane t (more content not included)... Normal [facility] Medicine Office/Clini c Noteon 06-26-2022 Family Medicine Office/Clinic Note Chief Complaint [place] eye HPI Staff eye symptoms started yesterday right eye Erythema:yes Discharge:yes, purulent, worse at night, crusty in the morning Irritation:yes itching, sometimes burning Light sensitivity:no Vision changes:no Known eye injury/chemical exposure:no Contact lens use:no tx - warm compress patient is breast feeding URI symptoms x 3 days Fatigue: no Body aches: no Chills: no Fever: no LAURA: no Nasal congestion: yes Rhinorrhea: yes Cough: yes, productive SOB: no Wheezing: no Sore throat: yes Ear pain: no Ear drainage: no Loss of taste or smell: no Nausea: no Vomiting: no Diarrhea: no Current or former smoker: no Underlying health conditions: no Known Covid exposure: no tx- none History of Present Illness I have reviewed and verified the staff HPI to be accurate for this encounter. Review of Systems PHQ Score Initial Depression Screen Score: 0 Physical Exam Vitals & Measurements T: 36.8 ?C(Oral) HR: 94(Peripheral) BP: 120/74 SpO2: 99% HT: 64 in HT: 163 cm WT: 54 kg WT: 118.8 lb BMI: 20.32 General: Well developed, well nourished, in no acute distress Eyes: _ PERRL, EOM intact. Mild right-sided conjunctival erythema. Small amount of purulent drainage noted to the right inner canthus. Left conjunctiva without erythema, no drainage noted. Ears: No deformity or lesion of external ear. Canals and TM appear normal bilaterally. TM?s intact, not inflamed, with normal light reflex. Hearing grossly normal to conversational speech Nose: mild nasal mucosa inflammation and edema Mouth: Mucous membranes moist. Normal oropharynx, and posterior pharynx without lesions or exudates. Tongue normal tonsils 2+, mild erythema of the posterior pharynx. No palatal petechiae. Uvula is midline. Neck: shotty anterior cervical nodes bilaterally Lungs: Normal respiratory effort and clear to auscultation Cardio: regular rate and rhythm, no murmur Mental Status: Alert and oriented x3. Normal mood and affect Assessment/Plan 1. Conjunctivitis, right eye (H10.9: Unspecified conjunctivitis) Exam consistent with bacterial conjunctivitis. Will treat with poly b ophthalmic gtts. Finish course. Discussed contagious nature, avoid touching eyes. May use warm washcloth to remove drainage or crusting. Advised less contagious after 24 hours of antibiotic drops. Follow up with PCP or eye doctor if not improving over next 3 days. Patient verbalized understanding of treatment plan. Ordered: polymyxin B-trimethoprim ophthalmic, 1 drop(s), OPTH, q3hr for 7 day(s), 10 mL, Refill(s) 0, [facility]/pharmacy #[id number] 2. Acute nasopharyngitis (J00: Acute nasopharyngitis [common cold]) Discussed exam and hx are consistent with viral illness. Advised of typical duration. Discussed antibiotics unfortunately do not treat viral illnesses, it will take time to run course- usually 7-14 days. Fluids/rest encouraged, PRN tylenol/ibuprofen for any pain. May use humidification, saline nasal spray for symptomatic tx. Follow up with PCP if not improving over next 7-10 days or significantly worsening symptoms. Patient verbalized understanding of tx plan. Follow-up No qualifying data available Patient Education Bacterial Conjunctivitis, Adult Upper Respiratory Infection, Adult Problem List/Past Medical History Ongoing No chronic problems Historical No qualifying data Medications polymyxin B-trimethoprim Opth Radha, 1 drop(s), OPTH, q3hr Allergies No Known Allergies Social History Tobacco Never (less than 100 in lifetime) Tobacco Use:. Never Smokeless Tobacco Use:., 06/26/2022 [facility] Comment on above: Result Comment: Elec tronically Signed By: MAILE Max APRN, [place] X\.br\Date and Time Signed: 06/26/22 11:36 EST Patient Educationon 06-26-20 Patient Education Infectious Disease Bacterial Conjunctivitis, Adult Bacterial conjunctivitis is an infection of the clear membrane that covers the white part of your eye and the inner surface of your eyelid (conjunctiva). When the blood vessels in your conjunctiva become inflamed, your eye becomes red or pink, and it will probably feel itchy. Bacterial conjunctivitis spreads very easily from person to person (is contagious). It also spreads easily from one eye to the other eye. What are the causes? This condition is caused by bacteria. You may get the infection if you come into close contact with: ? A person who is infected with the bacteria. ? Items that are contaminated with the bacteria, such as a face towel, contact lens solution, or eye makeup. What increases the risk? You are more likely to develop this condition if you: ? Are exposed to other people who have the infection. ? Wear contact lenses. ? Have a sinus infection. ? Have had a recent eye injury or surgery. ? Have a weak body defense system (immune system). ? Have a medical condition that causes dry eyes. What are the signs or symptoms? Symptoms of this condition include: ? Thick, yellowish discharge from the eye. This may turn into a crust on the eyelid overnight and cause your eyelids to stick together. ? Tearing or watery eyes. ? Itchy eyes. ? Burning feeling in your eyes. ? Eye redness. ? Swollen eyelids. ? Blurred vision. How is this diagnosed? This condition is diagnosed based on your symptoms and medical history. Your health care provider may also take a sample of discharge from your eye to find the cause of your infection. This is rarely done. How is this treated? This condition may be treated with: ? Antibiotic eye drops or ointment to clear the infection more quickly and prevent the spread of infection to others. ? Oral antibiotic medicines to treat infections that do not respond to drops or ointments or that last longer than 10 days. ? Cool, wet cloths (cool compresses) placed on the eyes. ? Artificial tears applied 2?6 times a day. Follow these instructions at home: Medicines ? Take or apply your antibiotic medicine as told by your health care provider. Do not stop taking or applying the antibiotic even if you start to feel better. ? Take or apply pyaf-dvq-lyphttc and prescription medicines only as told by your health care provider. ? Be very careful to avoid touching the edge of your eyelid with the eye-drop bottle or the ointment tube when you apply medicines to the affected eye. This will keep you from spreading the infection to your other eye or to other people. Managing discomfort ? Gently wipe away any drainage from your eye with a warm, wet washcloth or a cotton ball. ? Apply a clean, cool compress to your eye for 10?20 minutes, 3?4 times a day. General instructions ? Do not wear contact lenses until the inflammation is gone and your health care provider says it is safe to wear them again. Ask your health care provider how to sterilize or replace your contact lenses before you use them again. Wear glasses until you can resume wearing contact lenses. ? Avoid wearing eye makeup until the inflammation is gone. Throw away any old eye cosmetics that may be contaminated. ? Change or wash your pillowcase every day. ? Do not share towels or washcloths. This may spread the infection. ? Wash your hands often with soap and water. Use paper towels to dry your hands. ? Avoid touching or rubbing your eyes. ? Do not drive or use heavy machinery if your vision is blurred. Contact a health care provider if: ? You have a fever. ? Your symptoms do not get better after 10 days. Get help right away if you have: ? A fever and your symptoms suddenly get worse. ? Severe pain when you move your eye. ? Facial pain, redness, or swelling. ? Sudden loss of vision. Summary ? Bacterial conjunctivitis is an infection of the clear membrane that covers the white part of your eye and the inner surface of your eyelid (conjunctiva). ? Bacterial conjunctivitis spreads very easily from person to person (is contagious). ? Wash your hands often with soap and water. Use paper towels to dry your hands. ? Take or apply your antibiotic medicine as told by your health care provider. Do not stop taking or applying the antibiotic even if you start to feel better. ? Contact a health care provider if you have a fever or your symptoms do not get better after 10 days. This information is not intended to replace advice given to you by your health care provider. Make sure you discuss any questions you have with your health care provider. Document Released: 06/24/2006 Document Revised: 10/13/2019 Document Reviewed: 01/28/2019 [employer] Patient Education ? 2019 [employer] Upper Respiratory Infection, Adult An upper respiratory infection (URI) is a common viral infection of the nose, throat, an (more content not included)... Normal [facility] IVF EMBRYOLOGIST - Office Visiton 05-08 IVF EMBRYOLOGIST - Office Visit Provider Emilie mace Patient is a 27-year-old who comes in for 6-week visit. Patient appears to be healing well. Patient released to resume all activities. Patient not interested in contraception and advised to use condom in the interim. Follow-up in 6 months for an annual Chief Complaint Patient here for her 6 week post visit.She had vaginally delivery on 04/08/2022. She has not been interested in control at this time, Has not been sexually active and is exclusively pumping. She is currently bleeding again after stopping for 1 week. History of Present IllnessPatient is a 27-year-old who comes in for her 6-week visit. Patient reports that she is still having periodic dark blood. Patient reports she stopped for a week but then restarted bleeding again recently. Patient is currently breast-feeding and has no interest in contraception. Active Problems Problems 38 weeks gestation of (V22.2) (Z3A.38) Encounter for Papanicolaou smear of cervix (V76.2) (Z12.4) 02/24/19 NIL Gestational hypertension (642.30) (O13.9) History of anemia (V12.3) (Z86.2) Migraines (346.90) (G43.909) Nausea and vomiting of , antepartum (643.93) (O21.9) Normal first in third trimester (V22.0) (Z34.03) Screening for STDs (sexually transmitted diseases) (V74.5) (Z11.3) Past Medical History Problems History of asthma (V12.69) (Z87.09) History of Menstruation AGE 17 Surgical History Problems No history of surgery Family History Mother Family history of migraine headaches (V17.2) (Z82.0) Father Family history of migraine headaches (V17.2) (Z82.0) Grandmother Family history of lung cancer (V16.1) (Z80.1) Grandfather Family history of cardiac disorder (V17.49) (Z82.49) Family history of malignant neoplasm of stomach (V16.0) (Z80.0) Social History Problems Does not use illicit drugs (V49.89) (Z78.9) Non-smoker (V49.89) (Z78.9) Occasional alcohol use Sexually active Allergies Medication No Known Drug Allergies Recorded By: Tari Schafer; 08/25/2021 11:22:44 AM Current Meds Medication NameInstruction Ferrous Sulfate 325 (65 Fe) MG Oral Tablettake 1 tablet by mouth twice a day Ibuprofen 800 MG Oral Tablet Iron TABS Vitamin Plus Low Iron 27-1 MG Oral TabletTAKE 1 TABLET DAILY. Stool Softener TABS Vitals Vital Signs Recorded: 18May2022 02:10PM [id number] Yzoieemnk62 Height5 ft 1 in Iahmxf268 lb 4 oz BMI Fyxamgeife29.67 kg/m2 BSA Calculated1.55 Physical Exam Constitutional: Healthy-appearing in no distress. Neck: Good range of motion. Pulmonary: Breathing comfortably. Abdomen: Soft nontender. Sternal genitalia revealed no lesions the vaginal introitus was almost in healing small sutures were removed. The vagina showed bread mucousy dark discharge the cervix was nonfriable Musculoskeletal: Good mobility of her extremities. Psychiatric: Appropriately oriented with normal mood and affect. Signatures Electronically signed by : Ev Mccartney DO; May 18 2022 2:23PM EST (Author) Normal [facility] IVF EMBRYOLOGIST - Office Visiton IVF EMBRYOLOGIST - Office Visit Diagnoses/Problems Assessed Gestational hypertension (642.30) (O13.9) Orders Follow-up visit in 1 month Outpatient Follow-up Status: Hold For - Scheduling Requested for: 13Apr2022 Provider Impressions 1)GHTN-patient has borderline blood pressure prior to discharge. Patient here for blood pressure follow-up. Patient notes home blood pressures are smidge higher than what they are in office. Overall normal range. Patient a little bit of headache but overall reasonable. Reviewed precautions to return both blood pressure and symptomatology [place]. Patient voiced understand agree to proceed. Discussed continued blood pressure still 6 weeks . All questions answered. Chief Complaint PT IS HERE TODAY FOR A B/P CHECK. DELIVERED VAGINAL ON 04/08/2022. STATES HAS NOTICED HER STOOL HAS BEEN BLACK. History of Present Nbzpaub06eb presents for blood pressure check. Patient was induced for gestational hypertension. Patient was titrated home without any medications. Patient's home blood pressure has been 130s over 80s. Patient has a mild headache this morning but she thinks is more tension as it can goes from her neck to The top of her head. Tylenol and ibuprofen help. Patient getting some decent rest. Baby feeding a lot. Patient notes no vision changes or upper abdominal pain with Review of Systems Constitutional: No fevers, chills Eye:no vision changes Respiratory: no SOB Cardiovascular: no chest pain Gastrointestinal: No nausea, vomiting, diarrhea, constipation, abdominal pain Genitourinary:no dysuria Gynecology: See HPI Active Problems Problems 38 weeks gestation of (V22.2) (Z3A.38) Encounter for Papanicolaou smear of cervix (V76.2) (Z12.4) 02/24/19 NIL Migraines (346.90) (G43.909) Nausea and vomiting of , antepartum (643.93) (O21.9) Normal first in third trimester (V22.0) (Z34.03) Screening for STDs (sexually transmitted diseases) (V74.5) (Z11.3) Past Medical History Problems History of asthma (V12.69) (Z87.09) History of Menstruation AGE 17 Surgical History Problems No history of surgery Family History Mother Family history of migraine headaches (V17.2) (Z82.0) Father Family history of migraine headaches (V17.2) (Z82.0) Grandmother Family history of lung cancer (V16.1) (Z80.1) Grandfather Family history of cardiac disorder (V17.49) (Z82.49) Family history of malignant neoplasm of stomach (V16.0) (Z80.0) Social History Problems Does not use illicit drugs (V49.89) (Z78.9) Non-smoker (V49.89) (Z78.9) Occasional alcohol use Sexually active Allergies Medication No Known Drug Allergies Recorded By: Tari Schafer; 08/25/2021 11:22:44 AM Current Meds Medication NameInstruction Ibuprofen 800 MG Oral Tablet Iron TABS Vitamin Plus Low Iron 27-1 MG Oral TabletTAKE 1 TABLET DAILY. Stool Softener TABS Vitals Vital Signs Recorded: 13Apr2022 09:06AM Btjhdnaz310 Siubrnsea13 Height5 ft 1 in Cluacs098 lb 1.28 oz BMI Tytzwrdhqh58.03 kg/m2 BSA Calculated1.64 Physical Exam General: None acute distress Eye: Intraocular movements are intact HEENT: Normocephalic Cardiovascular: Regular rate rhythm Respiratory: Lungs are clear to auscultation, respirations are nonlabored Gastrointestinal: Soft nontender nondistended normal bowel sounds Musculoskeletal: Normal range of motion ext:neg calf pain. Trace edema Skin: Warm and dry Neurologic: Alert and oriented x3 Psychiatric: Cooperative appropriate mood and affect. Signatures Electronically signed by : Aster Frank DO; Apr 13 2022 9:14AM EST (Author) Normal [facility] Daily Progress Note - OB-Pos t-partumon 04-10-2022 Daily Progress Note - ZD-Tkbp-oetuiw Current Stage: Stage: Post- Subjective Data: Post : Ambulate: Yes Flatus: Yes Tolerate Diet: Yes Lochia: Moderate : Patient doing well. Pain controlled. Bleeding stable. Working on breast-feeding. Denies any fevers chills chest pain shortness of breath or calf pain. Denies any headache or vision changes Objective Information: Objective Information: T PRBPMAPSpO2 [id number]% Date/Time04/09 23: 23: 23: 23: 23: 23:58 Range(36.3C - 36.7C ) (85 - 107 ) (16 - 16 ) (119 - 142 )/ (80 - 98 ) (93 - 114 ) (98% - 100% ) Pain reported at 04/10 2:20: 0 = None ---- Intake and Output ----- Mn/Dy/Year TimeIntakeOutCritical access hospital Apr 08, 2022 10:00 [id number] Apr 08, 2022 2:00 [id number] Apr 08, 2022 6:00 [id number] The Intake and Output Totals for the last 24 hours are: IntakeOutputNet [id number] Physical Exam: Constitutional: alert, oriented Obstetric: Uterus firm below umbilicus Eyes: pupils equal, sclerae clear Respiratory/Thorax: Clear to auscultation bilaterally Cardiovascular: Regular rate rhythm Gastrointestinal: Soft positive bowel sound probably tender nondistended Extremities: Negative calf pain Skin: no rashes or lesions Recent Lab Results: Results: CBC: 04/09/2022 08:46 \ Hgb / \ 8.6 L / WBC Plt 17.2 H 250 / Hct \ / 26.2 L \ RBC: 2.88 L MCV: 91 Assessment and Plan: Additional Dx: Anemia due to blood loss: Entered Date: 10-Apr-2022 04:52 Comorbidity: Comorbidtyanemia Anemiaacute blood loss anemia Assessment: 1)PPD#2-discharge today 2) DVT prophylaxis-SCDs ambulation 3) gestational hypertension-blood pressure stable. Patient has home cuff. Follow-up blood pressure check Saturday morning 4)anemia-fe/colace Electronic Signatures: Aster Frank) (Signed 10-Apr-2022 04:52) Authored: Current Stage, Subjective Data, Objective Data, Assessment and Plan, Note Completion Last Updated: 10-Apr-2022 04:52 by Aster Frank () Normal [facility] CBCon 04-09-2022 Erythrocyte distribution width (RBC) [Ratio] 14.4 % Normal 11.5 - 14.5 [facility] Comment on above: Performed By: #### C BC #### [address] [address] Hematocrit (Bld) [Volume fraction] 26.2 % Low 36.0 - 46.0 [facility] Comment on above: Performed By: #### C BC #### [address] [address] Hemoglobin (Bld) [Mass/Vol] 8.6 g/dL Low 12.0 - 16.0 [facility] Comment on above: Performed By: #### C BC #### [address] [address] MCHC (RBC) [Mass/Vol] 33.0 g/dL Normal 32.0 - 36.0 [facility] Comment on above: Performed By: #### C BC #### [address] [address] MCV (RBC) [Entitic vol] 91 fL Normal 80 - 100 [facility] Comment on above: Performed By: #### C BC #### [address] [address] Platelets (Bld) [#/Vol] 250 10*3/uL Normal 150 - 450 [facility] Comment on above: Performed By: #### C BC #### [address] [address] RBC 2.88 x10E12/L Low 4.00 - 5.20 [facility] Comment on above: Performed By: #### C BC #### [address] [address] WBC (Bld) [#/Vol] 17.2 10*3/uL High 4.4 - 11.3 [facility] Comment on above: Performed By: #### C #### [address] [address] Daily Progress Note - OB-Pos t-partumon 04-09-2022 Daily Progress Note - IK-Qrxn-ilndmy Current Stage: Stage: Post- Subjective Data: Post : Ambulate: Yes Flatus: Yes Tolerate Diet: Yes Lochia: Moderate : Patient doing well. Pain controlled. Bleeding stable. Patient breast-feeding. Denies any fevers chills chest pain shortness of breath. Denies headaches or vision changes Objective Information: Objective Information: T PRBPMAPSpO2 [id number]% Date/Time04/09 3: 8: 3: 8: 8: 8:13 Range(36.5C - 36.8C ) (64 - 163 ) (14 - 20 ) (100 - 150 )/ (59 - 95 ) (74 - 112 ) (89% - 100% ) Pain reported at 04/09 6:00: sleeping ---- Intake and Output ----- Mn/Dy/[facility]Output[facility] Apr 09, 2022 6:00 [id number] Apr 08, 2022 10:00 [id number] Apr 08, 2022 2:00 [id number] The Intake and Output Totals for the last 24 hours are: IntakeOutputNet [id number] Assessment and Plan: Assessment: 1)PPD#1-working on breast-feeding increase ambulation 2)DVT PPX-SCD ambulation 3)GHTN-BPs stable. Pt has home cuff. Will likely need close interval followup Electronic Signatures: Aster Frank) (Signed 09-Apr-2022 08:25) Authored: Current Stage, Subjective Data, Objective Data, Assessment and Plan, Note Completion Last Updated: 09-Apr-2022 08:25 by Aster Frank () Normal [facility] Discharge [id number] 022 Discharge Profile2 Discharge Orders: Anticipated Discharge Date: Anticipated Discharge [id number] Problem List: Additional Dx: Gestational hypertension: Catalog Name: Gestational [-induced] hypertension without significant proteinuria, unspecified trimester DNAR: Code Status at Discharge: Full Code : Call 911: Call 911 or go to the nearest emergency room RIGHT AWAY if you have:. Chest pain or pressure; heart racing. Shortness of breath or difficulty breathing. Seizures; change in alertness or confusion. Thoughts of hurting yourself or someone else. Call Provider: Call your OB Provider if you have: (If you can't reach your healthcare provider, call 911 or go to an emergency room). Heavy bleeding. Soaking a large pad every hour or passing large clots. Incision that is not healing, is red or more painful, or has pus (if you have an incision). Red or swollen leg that is painful or warm to touch. Temperature of 100.4 degrees F or higher; bad-smelling vaginal blood or discharge. Headache that does not get better, even after taking medicine; bad headache with vision changes; pain in the upper right area of your belly. Signs of Depression. Examples include: 1. Persistent sadness 2. Frequent crying 3. Sleep problems 4. Excessive worrying 5. Feeling unable to cope. Red or swollen breast that is painful or warm to touch. Pain, burning, or difficulty with emptying your bladder. Severe constipation (more than 5 days). Trust your instincts. Always get medical care if you are not feeling well or have questions or concerns.. Activity: Return to normal activity as tolerated. Patient Instructions: Pelvic Rest: DO NOT place anything in vagina until cleared by OB Provider. Blood Pressure: Any Blood Pressure Systolic (upper number) 160 or higher OR Diastolic (bottom number) 110 or higher, call your doctor or windows infrastructure engineer immediately. Blood Pressure Systolic (upper number) 150 - 159 OR Diastolic (bottom number) 100 - 109, repeat in one hour. If repeat Blood Pressure Systolic 150 - 159 OR Diastolic 100 - 109, call your doctor or windows infrastructure engineer to discuss blood pressure management.. Diet: Regular. Follow-Up - OB Provider: Physician/Dept/ServiceOB Provider Scheduled Date/[id number] Provider FINAL REVIEW of Orders: Final Review: Final Review of Medication Reconciliation and Orders Completedby Physician Reviewing ProviderAster Frank DO at 09-Apr-2022 08:27:06 Other Clinician Instructions: Other Instructions: Other Clinician InstructionsAny woman can have complications after the of a baby including a blood clot, a heart problem, hypertensive disorder/eclampsia, depression, hemorrhage, or infection. Notify all providers of your delivery date up to one year after .* Call 911 or go to nearest emergency room right away if you have: PAIN or pressure in chest; OBSTRUCTED breathing or shortness of breath; SEIZURES; THOUGHTS of hurting yourself or your baby; heart palpitations/racing; change in alertness/confusion. Call your provider if you have: BLEEDING, soaking through a pad/hour, or blood clots the size of an egg or bigger; INCISION (episiotomy stitches or site) that is not healing (increased redness, pain, drainage/pus, or separation); RED or swollen leg/calf that is painful or warm to touch, especially in one leg more than the other; TEMPERATURE of 100.4 F or higher or chills; HEADACHE that does not get better with medicine, rest or hydration, or bad headache with vision changes like spots or flashing lights; increased swelling of face, hands or legs; severe cramps or upper right belly pain; red or swollen breast that is painful or warm to touch; an unusual, foul odor from your vaginal discharge; pain, burning, or difficulty during urination; severe constipation (more than 5 days); feelings of depression (such as depressed mood, loss of interest in enjoyable things, unable to care for yourself, trouble sleeping, lack of appetite, or feeling worthless). If you cant reach your provider or symptoms worsen, call 911 or go to nearest emergency room. *Information [facility] from [facility]: [facility] Your Life: Get Care for These POST- Warning Signs On Behalf on the [facility] Maternity Staff, Congratulations on your . It was our pleasure to take care of you and your during your stay. We hope during this stay that we have exceeded all of your expectations. We will be calling you in a few days to check up on you and your infant. Please allow us to speak with you and please ask questions or let us know if you have any concerns. If you need any assistance after you go home please give us a call. Also, please join our [facility] Support Group which meets the saturday of every month at 10 am in the OB unit. No need to register. I (more content not included)... Normal [facility] Laboratory - Hematology and Cell countson 04-09-2022 Erythrocyte distribution width (RBC) [Ratio] 14.4 % See Below [employer] Work Phone: Comment on above: Reference Range: 11. 5 - 14.5 Hematocrit (Bld) [Volume fraction] 26.2 % below low threshold See Below [employer] Work Phone: Comment on above: Reference Range: 36. 0 - 46.0 Hemoglobin (Bld) [Mass/Vol] 8.6 g/dL below low threshold See Below [employer] Work Phone: Comment on above: Reference Range: 12. 0 - 16.0 MCHC (RBC) [Mass/Vol] 33.0 g/dL See Below [facility] Work Phone: Comment on above: Reference Range: 32. 0 - 36.0 MCV (RBC) [Entitic vol] 91 fL 80 - 100 [employer] Work Phone: Platelets (Bld) [#/Vol] 250 10*3/uL 150 - 450 [employer] Work Phone: RBC (Bld) [#/Vol] 2.88 {x10E12/L} below low threshold See Below [employer] Work Phone: Comment on above: Reference Range: 4.0 0 - 5.20 WBC (Bld) [#/Vol] 17.2 10*3/uL above high threshold 4.4 - 11.3 [place] Work Phone: Order Reconciliationon 04-09 Order Reconciliation Page 1 Discharge Reconciliation Document Reconciliation Type: Discharge requested on behalf of Aster Frank (Physician) done by Aster Frank) Discharge - Reconciliation: 09-Apr-2022 08:29 by: Aster Frank) Discharge - Reset to Incomplete: 10-Apr-2022 04:48 by: Aster Frank) Discharge - Reconciliation: 10-Apr-2022 04:48 by: Aster Frank) Home Medications EnteredHOME MEDICATIONS AT DISCHARGE DateReconciliation Comment/ Additional Information 1 oral capsule orally once a day 15-Jan-2022 12:57 1 oral capsule orally once a day 15-Jan-2022 12:57 1 oral capsule is continued as 1 oral capsule Current OrdersDateHOME MEDICATIONS AT DISCHARGE DateReconciliation Comment/ Additional Information Acetaminophen Tablet (TYLENOL)DOSE = 975 mg Oral Every 6 Hours, PRN Headache 08-Apr-2022 12:05 Acetaminophen is not required Acetaminophen Rectal Suppository (TYLENOL)DOSE = 650 mg Rectal Once, PRN Initial pain mgmt following deliveryClinician Notes: Administer in the OR. 07-Apr-2022 23:26 Acetaminophen Rectal is not required Benzocaine 20% - Menthol 0.5% Topical Alba (DERMOPLAST)DOSE = 1 application(s) Topical 4 Times a Day, PRN DiscomfortApply to Perianal Area 08-Apr-2022 16:43 Benzocaine 20% - Menthol 0.5% Topical is not required Bisacodyl Rectal Suppository (DULCOLAX)DOSE = 10 mg Rectal Daily, PRN Severe constipation 08-Apr-2022 16:43 Bisacodyl Rectal is not required Butorphanol Injectable (NON-Formulary) (STADOL)DOSE = 1 mg IntraVenous Push Every 4 Hours, PRN Contraction pain 08-Apr-2022 00:29 Butorphanol Injectable (NON-Formulary) is not required Carboprost IntraMuscular (HEMABATE)DOSE = 250 microgram(s) IntraMuscular Once, PRN post bleeding in non-asthmatic patientClinician Notes: Consult provider prior to administration. 07-Apr-2022 23:26 Carboprost IntraMuscular is not required diphenhydrAMINE Capsule (BENADRYL)DOSE = 25 mg Oral Every 6 Hours, PRN Itching 08-Apr-2022 16:43 diphenhydrAMINE is not required Docusate Capsule (COLACE)DOSE = 100 mg Oral 2 Times a Day, PRN Stool Softening 08-Apr-2022 16:43 docusate sodium 100 mg oral capsule 1 cap(s) orally 2 times a day, As needed, Stool Softening 10-Apr-2022 04:48 Prescription is created for docusate sodium 100 mg oral capsule fentaNYL 2 mcg/mL - Bupivacaine 0.0625% PCEA DEMAND/ PCEA Dose = 5BASAL/ Continuous Rate = 10One Hour Dose Limit = 70 mL/hrIntermittent Bolus Dose= 0 mL Max Number PCEA Attempts= 3 per hourNotes from Pharmacy: [Fentanyl 2 mcg/mL - Bupivacaine 08-Apr-2022 06:08 fentaNYL 2 mcg/mL - Bupivacaine 0.0625% PCEA is not required Ferrous Sulfate Tablet (FEOSOL)DOSE = 325 mg Oral 2 Times a Day 09-Apr-2022 09:05 ferrous sulfate 325 mg (65 mg elemental iron) oral tablet 1 tab(s) orally 2 times a day 10-Apr-2022 04:48 Prescription is created for ferrous sulfate 325 mg (65 mg elemental iron) oral tablet hydrALAZINE (APRESOLINE) Injectable DOSE = 5 mg IntraVenous Push Once, PRN Acute-onset, severe HTN w/out known, suspected CADClinician Notes: Consult provider prior to administration. Push over more than 2 minutes. Systolic greater than or equal to 16 07-Apr-2022 18:49 hydrALAZINE (APRESOLINE) Injectable is not required Ibuprofen Tablet (ADVIL, MOTRIN)DOSE = 600 mg Oral Every 6 HoursClinician Notes: Give with Acetaminophen. 08-Apr-2022 16:43 ibuprofen 600 mg oral tablet 1 tab(s) orally every 6 hours as needed pain 09-Apr-2022 08:28 Prescription is created for ibuprofen 600 mg oral tablet Labetalol Injectable (TRANDATE)DOSE = 20 mg IntraVenous Push Once, PRN Acute-onset, sev HTN w/o active asthma/ mykel<60Clinician Notes: Consult provider prior to administration. Push over more than 2 minutes. Systolic greater than or equal to 160 OR 07-Apr-2022 18:49 Labetalol Injectable is not required Lactated Ringers IV Bolus DOSE = 500 mL Once, PRN resuscitationInfuse over 30 minute(s) 07-Apr-2022 23:26 Lactated Ringers IV Bolus is not required Lactated Ringers IV Bolus DOSE = 500 mL Once, PRN If patient is given an EpiduralInfuse over 30 minute(s)Clinican Notes: Give 30 minutes prior to Epidural catheter placement 07-Apr-2022 23:26 Lactated Ringers IV Bolus is not required Lanolin Topical Ointment (LANSINOH)DOSE = 1 application(s) Topical Every 24 Hours, PRN Dry SkinApply to NippleClinician Notes: After and PRN 08-Apr-2022 16:43 Lanolin Topical is not required Loperamide Capsule (IMODIUM)DOSE = 4 mg Oral Every 2 Hours, PRN If Carboprost given or loose stoolsClinician Notes: Max dose of 16mg / 24 hours 07-Apr-2022 23:26 Loperamide is not required Magnesium Hydroxide -Al Hydrox -Simethicone Oral Liquid (MAALOX)DOSE = 30 mL Oral Every 4 Hours, PRN Indigestion 08-Apr-2022 16:43 Magnesium Hydroxide -Al Hydrox -Simethicone Oral Liquid is not required Magnesium Hydroxide Oral Liquid CONCENTRATE (MILK OF MAGNESIA)DOSE = 10 mL Oral E (more content not included)... [facility] Order Reconciliation Page 1 Admission Reconciliation Document Reconciliation Type: Admission requested on behalf of Aster Frank (Physician) done by Aster Frank (DO) Admission - Reconciliation: 09-Apr-2022 08:28 by: Aster Frank (DO) Home MedicationsEnteredLast Dose TakenReconciled with current Order Reconciliation Comment/ Additional Information 1 oral capsule orally once a [id number] Reviewed and Held Documentation of outpatient medication history is incomplete. Additional Current Orders Acetaminophen Rectal Suppository (TYLENOL)DOSE = 650 mg Rectal Once, PRN Initial pain mgmt following deliveryClinician Notes: Administer in the OR. Acetaminophen Tablet (TYLENOL)DOSE = 975 mg Oral Every 6 Hours, PRN Headache Benzocaine 20% - Menthol 0.5% Topical Alba (DERMOPLAST)DOSE = 1 application(s) Topical 4 Times a Day, PRN DiscomfortApply to Perianal Area Bisacodyl Rectal Suppository (DULCOLAX)DOSE = 10 mg Rectal Daily, PRN Severe constipation Butorphanol Injectable (NON-Formulary) (STADOL)DOSE = 1 mg IntraVenous Push Every 4 Hours, PRN Contraction pain Carboprost IntraMuscular (HEMABATE)DOSE = 250 microgram(s) IntraMuscular Once, PRN post bleeding in non-asthmatic patientClinician Notes: Consult provider prior to administration. diphenhydrAMINE Capsule (BENADRYL)DOSE = 25 mg Oral Every 6 Hours, PRN Itching Docusate Capsule (COLACE)DOSE = 100 mg Oral 2 Times a Day, PRN Stool Softening fentaNYL 2 mcg/mL - Bupivacaine 0.0625% PCEA DEMAND/ PCEA Dose = 5BASAL/ Continuous Rate = 10One Hour Dose Limit = 70 mL/hrIntermittent Bolus Dose= 0 mL Max Number PCEA Attempts= 3 per hourNotes from Pharmacy: [Fentanyl 2 mcg/mL - Bupivacaine 0.0625%] hydrALAZINE (APRESOLINE) Injectable DOSE = 5 mg IntraVenous Push Once, PRN Acute-onset, severe HTN w/out known, suspected CADClinician Notes: Consult provider prior to administration. Push over more than 2 minutes. Systolic greater than or equal to 160 OR Diastolic greater than or equal to 110. Contraindication: coronary artery disease (CAD); Caution in suspected CAD. Ibuprofen Tablet (ADVIL, MOTRIN)DOSE = 600 mg Oral Every 6 HoursClinician Notes: Give with Acetaminophen. Labetalol Injectable (TRANDATE)DOSE = 20 mg IntraVenous Push Once, PRN Acute-onset, sev HTN w/o active asthma/ mykel<60Clinician Notes: Consult provider prior to administration. Push over more than 2 minutes. Systolic greater than or equal to 160 OR Diastolic greater than or equal to 110. Contraindications: active asthma, heart disease, heart failure, maternal bradycardia < 60. Lactated Ringers IV Bolus DOSE = 500 mL Once, PRN resuscitationInfuse over 30 minute(s) Lactated Ringers IV Bolus DOSE = 500 mL Once, PRN If patient is given an EpiduralInfuse over 30 minute(s)Clinican Notes: Give 30 minutes prior to Epidural catheter placement Lanolin Topical Ointment (LANSINOH)DOSE = 1 application(s) Topical Every 24 Hours, PRN Dry SkinApply to NippleClinician Notes: After and PRN Loperamide Capsule (IMODIUM)DOSE = 4 mg Oral Every 2 Hours, PRN If Carboprost given or loose stoolsClinician Notes: Max dose of 16mg / 24 hours Magnesium Hydroxide -Al Hydrox -Simethicone Oral Liquid (MAALOX)DOSE = 30 mL Oral Every 4 Hours, PRN Indigestion Magnesium Hydroxide Oral Liquid CONCENTRATE (MILK OF MAGNESIA)DOSE = 10 mL Oral Every 24 Hours, PRN Constipation Measles -Mumps -Rubella (Live) MMR Vaccine DOSE = 0.5 mL SubCutaneous Once, PRN if patient screen is non- immune or equivocalClinician Notes: administer if patient screen is non- immune or equivocal Methylergonovine Injectable (METHERGINE)DOSE = 0.2 mg IntraMuscular Once, PRN PPH in pts w/o HTN or receiving ART for HIV mgmt.Clinician Notes: Consult provider prior to administration.Notes from Pharmacy: Reproductive Risk - Single Nitrile Glove miSOPROStol Rectal Tablet (Cytotec)DOSE = 800 microgram(s) Rectal Once, PRN post bleedingClinician Notes: Consult provider prior to administration.Notes from Pharmacy: Reproductive Risk - Single Nitrile Glove NIFEdipine (PROCARDIA) Immediate Release CapsuleDOSE = 10 mg Oral Once, PRN Acute-onset, severe HTN w/out IV access/ pref oralClinician Notes: Consult provider prior to administration. Systolic greater than or equal to 160 OR Diastolic greater than or equal to 110. Capsules administered orally and swallowed whole; Do not puncture or crush; Do not administer sublingually. Ondansetron Injectable (ZOFRAN)DOSE = 4 mg IntraVenous Push Once, PRN Nausea & Vomiting Oxytocin 30 units/ NaCL 0.9% 500 mL Infusion with Bolus from Bag IntraVenous (PITOCIN)INITIAL Bolus = 600 milliunits/min infused over 30 minutesDose Rate: 60 milliunits/minAdmin Rate = 60 mL/hrStop After 1 DosesClinician Notes: Conditional order. 600 milliunits/min x 30 mins., then 60 milliunits/min for the remainder of the bag. Consult Provider prior to administration.Note (more content not included)... Normal [facility] Admission Risk Screen - OBon 04-08-2022 Admission Risk Screen - OB Allergies: Allergies: No Known Allergies: Patient Verification: New W ID Band Applied in my Departmentyes (1) Patient Identity Verified Bypatient(1) ID Band FULL Name, include Middle, spelling matches patient's ID used for verificationyes (1) ID Band Matches Patient ID used for Verficationyes (1) ID Band MRN Matches EMR MRNyes (1) Visitor Restriction: Coronavirus Visitor Restriction: Reasonable restrictions to in-person visitors will be observed due to current coronavirus pandemic. Travel History: COVID-19 Screening Completedno exposure or symptoms(1) Travel or Exposure Past 30 DaysNO travel to International locations in the past 30 days Advance Directive: Advance Directive/DNRno (1) Advance Directive Information Givenpatient/family declined (1) Barr Fall Screen: History of falling (immediate or previous)no (0) Secondary Diagnosisno (0) Intravenous Therapy/ Heparin/Saline Lockyes (20) Gait/Transferringnormal/b edrest/wheelchair (0) Ambulatory Aidsnone/bedrest/nurse assist (0) Mental Statusoriented to own ability (0) Score: Low risk (<25). Moderate risk (25-44). High risk (>44).20 Barr InterventionsLOW INTERVENTIONS: *patient oriented to surroundings and call system, * patient/family falls education completed and documented, *patients fall status communicated during bedside handoff, *whiteboard updated, *mode of toileting discussed with patient, *bed in low position with brakes locked, *call light in reach, * non-skid footwear Functional screen: Functional Screen: In the recent/past 2-4 weeks, patient or family have noticedno issues that require a rehabilitation consult at this time Learning Assessment (Patient): Patient is Able to be Assessed for Learningyes (1) Factors Influencing Readiness to Learninterest in learning(2) Factors that Impact Ability to Learnnone(2) Devices/Methods Used to Communicatenone(2) Learning Preferencesverbal instruction; skill demonstration; written material(2) Cultural Considerationsnone (2) Developmental Considerationsnone (2) Yazidism Considerationsnone (2) Learning Assessment (Other Learner): Other learner availableno (1) Nutrition Risk Screen: Nutrition Risk Screenno indicators present Nutrition Consult needed this visitno Can Patient Participate in Room Serviceyes Pain Screen: Pain Control Method: Laborrepositioning; rest; relaxation; medication; epidural Pain Control Method: Postpartummedication; relaxation; rest Pain Scalenumerical 0-10 Pain Scale Educationteaching provided Acceptable Pain Level5 = Moderate Presence of Painyes Current Pain Locationabdomen Pain Characteristicscramping Pain Duration/Frequencyintermi ttent Factors that Affect Painbreathing Expression of Pain (nonverbal)grimace, muscle tension, verbalization Alleviating Factorsrelaxation repositioning rest Chronic Painno Skin - Tiago Scale: Tiago Scale (daily): Tiago: Sensory Perception (response to environment)(4) no impairment Tiago: Moisture (degree skin exposed to moisture)(4) rarely moist Tiago: Activity (ability to walk)(4) walks frequently Tiago: Mobility (amount/control of body movement)(4) no limitation Tiago: Nutrition (quality of food intake)(3) adequate Tiago: Friction and Shear(3) no apparent problem Tiago: Score22 Pressure Injury Present on Admissionno Spiritual Screen: Are there any cultural, spiritual, evangelical practices/values/needs that are important for us to knowno Depression Screen: During the past month, have you often been bothered by feeling down, depressed or hopelessno (1) During the past month, have you often had little interest or pleasure in doing thingsno (1) Have you had any thoughts of harming anyone elseno (1) [place] Suicide: Risk Screen Not Applicable/Able to Answerable to be screened In the Past Month: Have you wished you were or could go to sleep and not wake upno In the Past Month: Have you had any actual thoughts of killing yourselfno Lifetime: Have you ever done, started to do, or prepared to do anything to end your lifeno [place] Suicide Risknegative Family Violence Screen: Are you or have you been threatened or abused physically, emotionally, or sexually by anyoneno (1) Has anyone ever threatened to hurt your family or your petsno (1) Does anyone try to keep you from having/contacting other friends or doing things outside your homeno (1) Do you feel UNSAFE going back to the place where you are livingno (1) Do you feel anyone has exploited or taken advantage of you financially or of your personal propertyno (1) Clinical assessment: Are there any apparent signs of injuries/behaviors that could be related to abuse/neglectno (1) Social Service Consult for abuse/neglect needed this visitno Vaccinations: Vaccination - Influenza Vaccination Screen: Is it flu season (between and September 3 (more content not included)... Normal [facility] CORONAVIRUS 2019, SCREEN ASY MPTOMATICon 04-08-2022 SARS-CoV-2 (COVID-19) RNA SHEN+probe Ql (Unsp spec) Not detected Normal Not Detected [facility] Comment on above: Result Comment: . This test has received FDA Emergency Use Authorization (EUA) and has been verified by [facility]. This test is only authorized for the duration of time that circumstances exist to justify the authorization of the emergency use of in vitro diagnostic tests for the detection of SARS-CoV-2 virus and/or diagnosis of COVID-19 infection under section 564(b)(1) of the Act, 21 U.S.C. 360bbb-3(b)(1), unless the authorization is terminated or revoked sooner. [facility] is certified under CLIA-88 as qualified to perform high complexity testing. Testing is performed in the [facility] laboratory located at [address] [place] [address]. SARS-CoV-2/Flu/RSV Multiplex Test: Fact sheet for providers: https://www.fda.gov/media/770811/download Fact sheet for patients: https://www.fda.gov/media/402081/download Performed By: #### C [facility] #### [place] [address] Lab Specimen Source Nasal, Nasopharyngeal [facility] Comment on above: Performed By: #### C [facility] #### [place] [address] Covid 19 Resultson SARS-CoV-2 (COVID-19) RNA SHEN+probe Ql (Unsp spec) NEGATIVE COVID-19 Test Coronaviruses are common world-wide and are the cause of many common colds. SARS-COV2 is a new coronavirus that began circulating worldwide in 2019 so we are calling it COVID-19. It has been estimated that four out of five patients with COVID-19 will recover at home without the need for medical attention. Symptoms of COVID-19 may include cough, fever, shortness of breath, loss of taste or smell and other flu-like symptoms including chills, sore muscles, sore throat, and headache. Severe illness is more common in older people and people with other health problems such as high blood pressure, obesity, and immune system problems. If the test is positive, you have COVID-19. You will be contacted by the ordering physicians office and instructed to remain on home isolation, in accordance with CDC guidelines. You may also be contacted by the [facility] to see if any of your close contacts may have been exposed to the virus and need to quarantine. If the test is negative, you likely do not have COVID-19 at this time, but you still may have a different illness that can spread to other people (like Influenza, or the Flu) and could still be at risk for getting COVID-19. We recommend that you stay away from other people to limit the spread of illness until your symptoms are improving and you are fever-free for 24 hours without the use of fever lowering medications such as acetaminophen or ibuprofen. No test is 100% accurate so if you are still concerned you may have COVID-19, talk to your doctor about the need to continue to stay away from others. Medicines Unless your provider told you not to use the following: Acetaminophen (Tylenol and others) is generally safe. Anti-inflammatory medications, such as Ibuprofen (Advil or Motrin) or Naproxen (Aleve) can also be used. Fbvi-jmb-[id number] cough and cold medicines can be used according to the instructions on the package. Some phlx-vxv-erlitlc medicines also contain acetaminophen. Make sure you are not taking more than your recommended dose. For those not hospitalized, there is no specific treatment available for this illness. Antibiotics do not treat Coronaviruses. Follow-Up Follow up with your doctor by scheduling a virtual visit or consider follow-up at one of our urgent care fever clinics. If you are having difficulty breathing, or are very weak and having difficulty standing, this is a medical emergency. Call 911 or have someone take you to the nearest emergency room immediately. If possible, wear a facemask. Additional guidance from the CDC for patients who tested POSITIVE for COVID-19 How to isolate: Isolate yourself in a specific room at home and limit your contact with others. Use a separate bathroom from other members of the household, when possible. Leave home only to get essential medical care. Do not go to work, school or public areas. Avoid using public transportation, ride-sharing, or taxis. Restrict contact with pets and other animals. If you must care for your pet or be around animals while you are sick, wash your hands before and after your interaction and wear a facemask. Make sure that shared spaces in the home have good airflow, such as by an air conditioner or an opened window, weather permitting. Personal Hygiene Procedures: Wear a face mask when in the same room as other people or pets. If a face mask interferes with your breathing, others should wear a mask when sharing space with you. Frequent hand-washing: wash your hands with soap and water for at least 20 seconds. If soap and water are not available, use alcohol-based hand supervisor metal placing. Avoid touching your eyes, nose, and mouth with unwashed hands. Household Hygiene Procedures: Avoid sharing personal household items such as dishes, glassware, cups, eating utensils, towels or bedding with other people or pets in your home. After use, these items should be washed with soap and hot water. Disinfect all high-touch surfaces every day with antibacterial cleaning solutions such as Lysol wipes, bleach, cleansers, etc. High-touch surfaces include tabletops, doorknobs, bathroom fixtures, toilets, phones, keyboards, tablets and bedside tables. Immediately clean any surfaces that may have blood, poop or body fluids on them, using antibacterial cleaning solutions such as Lysol wipes, bleach, cleansers, etc. If clothing or bedding come into contact with blood, poop or body fluids, they should be washed immediately. Follow the directions on the laundry detergent and clothing labels but hot water is recommended when possible. Stopping home isolation precautions: If possible, consult your doctor before stopping home isolation precautions. According to the CDC, you can discontinue home isolation precautions when you have met both of these criteria: Your fever and respiratory symptoms have been gone for 24 terri (more content not included)... Normal [facility] Daily Progress Note - OB-Int ender 04-08-2022 Daily Progress Note - OB-Intrapartum Current Stage: Stage: Intrapartum Subjective Data: Intrapartum: Intrapartum Progress Notes Called in for recurrent variables. Patient had spontaneous rupture of membranes approximately at 530 this morning. Patient also had an epidural placed. Objective Information: Objective Information: T PRBPMAPSpO2 [id number] 0% Date/Time04/08 9: 9: 7: 9: 9: 9:18 Range(36.6C - 36.8C ) (64 - 163 ) (14 - 18 ) (100 - 145 )/ (59 - 107 ) (74 - 116 ) (97% - 100% ) Pain reported at 04/08 4:00: pt dozing ---- Intake and Output ----- Mn/Dy/Year TimeIntakeOutputNet Apr 08, 2022 6:00 [id number] The Intake and Output Totals for the last 24 hours are: IntakeOutputNet [id number] Physical Exam: Constitutional: Awake alert in no physical distress Obstetric: Nontender Respiratory/Thorax: Breathing comfortably Genitourinary: Cervix 6/80% -2 station posterior clear fluid Musculoskeletal: Good mobility of her extremities Psychological: Appropriately oriented with normal mood and affect Recent Lab Results: Results: CBC: 04/07/2022 19:07 \ Hgb / \ 10.6 L / WBC Plt 12.9 H 269 / Hct \ / 31.9 L \ RBC: 3.53 L MCV: 90 CMP: 04/07/2022 19:07 NA+ Cl- BUN / 136 105 7 / ------- Glucose -- 78 K+ HCO3- Creat \ 3.8 21 0.59 \ \ T Bili / \ 0.8 / AST x ---- x ALT 15 x ---- x 11 / Alk P \ / 195 H \ Calcium : 9.2 Anion Gap : 14 Albumin : 3.5 T Protein : 6.0 L Testing: NST Interpretation - Baby A: Baseline [id number] Variabilitymoderate (amplitude range 6 to 25 bpm) DecelerationsRecurrent deep and prolonged variables with contractions Assessment and Plan: Assessment: Patient at 38+ weeks gestation for induction secondary to regnancy induced hypertension. Patient progressed to 6 cm. Patient started having recurrent prolonged variable decelerations. tracing did not respond to the left or right lateral positions. Patient was then placed on all fours and amnioinfusion started and terbutaline given. tracing began to recover. Scalp electrode placed. Currently tracing is reassuring contractions every 5 minutes and patient still 6 cm dilated but the head has descended to 0 station. The OR team has been called in and anesthesia notified in the OR has been prepared for the possibility of a stat if heart tracing persistently with prolonged decelerations. Anesthesia has been notified. Currently patient in the right lateral position and fetus tolerating this position well. Peanut ball placed Electronic Signatures: Ev Mccartney) (Signed 08-Apr-2022 09:30) Authored: Current Stage, Subjective Data, Objective Data, Testing, Assessment and Plan, Note Completion Last Updated: 08-Apr-2022 09:30 by Ev Mccartney) [facility] Delivery Recordon 04-08-2022 Delivery Record Lab Tests/Results: Labs: Labs: Blood Typed Date: 22-Sep-2021 Blood Type: O positive Antibody Screen Results: negative Chlamydia Date: 22-Sep-2021 Chlamydia Results: negative Gonorrhea Date: 22-Sep-2021 Gonorrhea Results: negative Group B Strep Date: 23-Mar-2022 Strep Results: positive Group B Strep Comments: Group B streptococcus ISOLATED GCT (dd-mmm-yy): 26-Jan-2022 GCT result: 137 GTT - Extended (dd--yy): 30-Jan-2022 GTT - Extended - Fastin GTT - Extended - 1 hour: 127 GTT - Extended - 2 hour: 113 GTT - Extended - 3 hour: 99 HBsAG Date: 22-Sep-2021 HBsAG Results: negative HIV Date: 22-Sep-2021 HIV Results: negative Rubella Date: 22-Sep-2021 Rubella Results: immune Rubella Comments: Result Value POSITIVE Syphilis (mmm-dd-yyyy): 07-Apr-2022 Syphilis Results: negative Urine Spot (dd-mmm-yy): 07-Apr-2022 Total Protein/Creatinine Ratio: 0.2 Maternal Delivery Information: Vaginal Delivery Information: Counts Correctyes Circulating Lane Solis RN Delivery Information: Team: Team [id number] 15:10 Code [place] IndicationMarilinting Jl MANNING present for delivery d/t FHR strip during labor team [id number] 15:30 Plug Maker Information: Baby's Post Discharge Care Provider (Provider Name, Address and Phone Number) [facility] Name of Inhouse PediatricianMarichuy Parikh PROBATION MANAGER A Delivery Information: Baby A Delivery: Rupture of Membranes date/[id number]-Iat-4007 05:45 Amniotic Fluid Colorclear Delivery Typevaginal delivery Delivery Locationlabor and delivery Delivery Date/[id number]-Opu-0926 15:53 Delivery Date/Time Verified Kareen Solis RN Length of Time of ROM (rounded down to nearest hour)10 Sexmale Identification Band [id number] Electronic Transponder [id number] ID Bands Verified Kareen Solis RN & Nataly Hayward RN 4th ID band toFOB-Martin Weight (kg)3.135 kilogram(s) Length (cm)49.3 centimeter(s) Head Circumference (cm)35 centimeter(s) Delivery of Placenta (hh:mm)16:15 Baby A: Placenta disposaldiscarded 1 Min: Heart Ratemore than 100 beats/min Respiratory Rategood, crying Muscle Tonewell flexed Reflex Irritabilitycough or sneeze Colorblue, pale 1 Minute Score, Baby A8 Apgars assessed byCarlos Manuel. Derrick HOLT 5 Min: Heart Ratemore than 100 beats/min Respiratory Rategood, crying Muscle Tonewell flexed Reflex Irritabilitycough or sneeze Colorbody pink, extremities blue 5 Minute Score, Baby A9 Apgars assessed byCarlos Manuel. Derrick RN Resuscitation Efforts: Vigorous at Birthyes Resuscitation Effortsnone required Baby A: Transfer Baby A: Transfer toRemains with mother Baby A: Labs sentCord Blood Workup (Type/Rh/Antibody), G6PD Delivery Team: Preet Meza RN Neonatal TeamMarichuy Parikh CNP Electronic Signatures: Savana Solis (CLIN COOR) (Signed 08-Apr-2022 20:16) Authored: Lab Tests/Results, Maternal Delivery Information, [place] Delivery Information Last Updated: 08-Apr-2022 20:16 by Savana Solis (CLIN COOR) [facility] Discharge Planning Rxea7ul 1 Discharge Planning Note2 Discharge Planning: Anticipated Discharge [id number] Discharge Planning Date and Time: 04/07/0107/08/2021 @ 2343 Discharge Planning initiated on admission and formally reevaluated at this time. Patient independent with ambulation and ADL's prior to admission. Additional home going needs anticipated at this time: none Handouts given to and reviewed with patient/caregiver per unit folder standards. Patient verbalizes understanding and denies any other post-discharge needs. Plan to continue to assess home going/discharge needs. Coordinate with interdisciplinary team as needed. Signature: Savana Solis RN Date and Time: 04/10/22 According to plan, patient discharged home with spouse. Discharge instructions printed and reviewed. Teaching provided on new medications, self-care, signs and symptoms to report, and follow-up appointments. Patient verbalized understanding and denies any questions at time of discharge. Patient instructed to call provider with any additional questions after discharge. Signature: Gabriela Dotson RNstage electrician helper: Discharge Planning Assessment [id number] Arrived [place] (1) Nursing Checklist: Lines/Cathetersremoved/ap propriate for next level of care Discharge Med Rec Reconciled with Jerry Patient has Prescriptionsyes Transportation for Discharge Confirmedyes Follow up Reviewedyes DME equipment orderedyes Discharge Instructions Reviewed WithPatient, Significant Other Discharge Instructions Outcomeverbalize recall/understanding Discharge Instructions Review Completed with Patient/Family (diet, activity, pt instructions)yes Discharge Documentation: Discharge/Transfer Date/[id number]-Yup-3953 12:20 Discharged Accompanied Byspouse Discharge Modeambulatory Transportation Methodprivate car Code StatusCode Status order at time of discharge: Full Code [place] DNR Form Sent with Patient and/or Familyn/a Final Disposition.Home Electronic Signatures: Suzanna Holliday (RN) (Signed 10-Apr-2022 12:23) Authored: Discharge Planning, Discharge Documentation Savana Solis (CLIN COOR) (Signed 07-Apr-2022 23:44) Authored: Discharge Planning, Assessment Fatmata Dotson (RN) (Signed 10-Apr-2022 12:15) Authored: Discharge Planning, Nursing Checklist, Discharge Documentation Last Updated: 10-Apr-2022 12:23 by Suzanna Holliday (RN) References: 1. Data Referenced From Triage Note - OB v4 07-Apr-2022 18:36 [facility] Patient Profile - OB v3on Patient Profile - OB v3 Profile: Initial Info: How to be AddressedKaylee Spoken Language PreferredEnglish (1) Source of Informationpatient; health record Reason for admission this visitexpected delivery Primary Contact Name and [phone] Wants Family/Rep Notified of Admissionn/a; family present Notify PCPnotify PCP Informed of Patient Visiting Rightsyes Limitations on Visitors/Phone Callsnone Arrived [place] Was Admitted To in Past 90 Daysnone Patient Belongingsremains with patient Patient Belongings Remaining with Patientclothing; purse/wallet; cell phone/electronics Home Meds have been Reviewed and Verified with Patient/Familyyes Medications Brought to Hospitalno Info: Gravida1 (1) Term Deliveries0 (1) Deliveries0 (1) Abortions0 (1) Living Children0 (1) Patient stated [id number] Calculation of EGA based on patient stated EDD38.3 Records availableyes Trimester Care Initiatedfirst Care ProviderDrBucky Frank Current Risksasthma, Group B strep positive Previous live (any gestational age)no Planno Baby's Post Discharge Care Provider (Provider Name, Address and Phone Number) [facility] Feedingbreastmilk Benefits of Breast Milk DiscussionThe benefits of exclusive breast milk feeding and the risk of adding formula have been discussed with patient / mother. Discussion Date / [id number]-[id number]-4505 23:46 Previous Experienceno General Health: Current Weight in kg71.2 kilogram(s) Current Weight in tqw854.9 pound(s) Weight Methodactual (measured) Scale Typestanding Pre Weight (lb)125 pound(s) Total Weight Gain (lb)31 pound(s) Height in feet5 feet Height in inches0 inch(es) Height in cm152.4 centimeter(s) Height Methodstated BMI (kg/m2)30.655 square meter Patient or Family Member Reaction to Anesthesiano previous reaction Blood Avoidance/Restrictionsnon e Previous Transfusion Reactionnot applicable Rsp Based Care: How would you like to participate in your careExplain things to me so I understand what's going on What is the number one concern for you during this hospitalizationEveryone being okay during delivery process What is the most important thing we can do to support you during this hospitalizationKeep me informed of what's going on Is there anything we need to know to best care for youI'm jeannette dobbs Substance: Smoking Statusnever smoker (1) Alcohol Usedenies(1) Drug Usedenies (1) Drug 2 Usedenies (1) Health Mgmt: Symptoms/Conditions Managed at [place] Relationship/Environ: Primary Source of Support/Comfortspouse; parent; extended family Lives Withspouse; parent(s) Resource/Environmental Concernsnone [facility]ated [facility] Anticipated at Transitionnone Additional Information: Information Review: Allergies and Significant Events have been Reviewed and Verified with Patient/Familyyes Allergy, Intolerance, Adverse Event: Allergies: No Known Allergies: Active Electronic Signatures: Savana Solis (CLIN COOR) (Signed 07-Apr-2022 23:51) Authored: Initial Info, Info, General Health, Rsp Based Care, Substance, Health Mgmt, Relationship/Environ, Additional Information Last Updated: 07-Apr-2022 23:51 by Savana Solis (CLIN COOR) References: 1. Data Referenced From Triage Note - OB v4 07-Apr-2022 18:36 Normal [facility] SYPHILIS SCREENING WITH REFL EXon 04-08-2022 SYPHILIS TOTAL AB Non-Reactive Normal NONREACTIVE [facility] Comment on above: Result Comment: No s ignificant level of Treponema pallidum antibody detected. Repeat testing in 2 to 4 weeks may be considered if early infection or incubating syphilis infection is suspected. Performed By: #### C OINP #### [place] [address] Lab Specimen Source Normal [facility] Comment on above: Performed By: #### C OINP #### [place] [id number] TYPE + SCREENon 04-08-2022 ABO TYPE O Normal [facility] Comment on above: Performed By: #### T +S #### [place] [id number] RH TYPE Positive Normal [facility] Comment on above: Performed By: #### T +S #### [place] [id number] CBCon 04-07-2022 Erythrocyte distribution width (RBC) [Ratio] 14.5 % Normal 11.5 - 14.5 [facility] Comment on above: Performed By: #### C OINP #### [place] [id number] Hematocrit (Bld) [Volume fraction] 31.9 % Low 36.0 - 46.0 [facility] Comment on above: Performed By: #### C OINP #### [place] [id number] Hemoglobin (Bld) [Mass/Vol] 10.6 g/dL Low 12.0 - 16.0 [facility] Comment on above: Performed By: #### C OINP #### [place] [id number] MCHC (RBC) [Mass/Vol] 33.3 g/dL Normal 32.0 - 36.0 [facility] Comment on above: Performed By: #### C OINP #### [place] [id number] MCV (RBC) [Entitic vol] 90 fL Normal 80 - 100 [facility] Comment on above: Performed By: #### C OINP #### [place] [id number] Platelets (Bld) [#/Vol] 269 10*3/uL Normal 150 - 450 [facility] Comment on above: Performed By: #### C OINP #### [place] [address] RBC 3.53 x10E12/L Low 4.00 - 5.20 [facility] Comment on above: Performed By: #### C OINP #### [address] [address] WBC (Bld) [#/Vol] 12.9 10*3/uL High 4.4 - 11.3 [facility] Comment on above: Performed By: #### C OINP #### [place] [id number] COMPREHENSIVE PANELon 2021 Albumin [Mass/Vol] 3.5 g/dL Normal 3.4 - 5.0 [facility] Comment on above: Performed By: #### C OINP #### [place] [id number] ALP [Catalytic activity/Vol] 195 U/L High 33 - 110 [facility] Comment on above: Performed By: #### C OINP #### [place] [id number] ALT [Catalytic activity/Vol] 11 U/L Normal 7 - 45 [facility] Comment on above: Result Comment: Vicki ents treated with Sulfasalazine may generate falsely decreased results for ALT. Performed By: #### C OINP #### [address] [address] Anion gap [Moles/Vol] 14 mmol/L Normal 10 - 20 [facility] Comment on above: Performed By: #### C OINP #### [address] [address] AST [Catalytic activity/Vol] 15 U/L Normal 9 - 39 [facility] Comment on above: Performed By: #### C OINP #### [address] [address] Bilirubin [Mass/Vol] 0.8 mg/dL Normal 0.0 - 1.2 [facility] Comment on above: Performed By: #### C OINP #### [address] [address] Calcium [Mass/Vol] 9.2 mg/dL Normal 8.6 - 10.3 [facility] Comment on above: Performed By: #### C OINP #### [address] [address] Chloride [Moles/Vol] 105 mmol/L Normal 98 - 107 [facility] Comment on above: Performed By: #### C OINP #### [address] [address] Creatinine [Mass/Vol] 0.59 mg/dL Normal 0.50 - 1.05 [facility] Comment on above: Performed By: #### C OINP #### [address] [address] eGFR FEMALE >90 Normal >90 [facility] Comment on above: Result Comment: CALC ULATIONS OF ESTIMATED GFR ARE PERFORMED USING THE 2020 CKD-EPI STUDY REFIT EQUATION WITHOUT THE RACE VARIABLE FOR THE IDMS-TRACEABLE CREATININE METHODS. https://jasn.asnjournals.org/content//ASN.21520 44468 Performed By: #### C OINP #### [address] [address] Glucose [Mass/Vol] 78 mg/dL Normal 74 - 99 [facility] Comment on above: Performed By: #### C OINP #### [address] [address] HCO3 (Bld) [Moles/Vol] 21 mmol/L Normal 21 - 32 [facility] Comment on above: Performed By: #### C OINP #### [address] [address] Potassium [Moles/Vol] 3.8 mmol/L Normal 3.5 - 5.3 [facility] Comment on above: Performed By: #### C OINP #### [address] [address] Protein [Mass/Vol] 6.0 g/dL Low 6.4 - 8.2 [facility] Comment on above: Performed By: #### C OINP #### [address] [address] Sodium [Moles/Vol] 136 mmol/L Normal 136 - 145 [facility] Comment on above: Performed By: #### C OINP #### [place] [address] Urea nitrogen [Mass/Vol] 7 mg/dL Normal 6 - 23 [facility] Comment on above: Performed By: #### C OINP #### [place] [address] Coronavirus 2019 RNA by PCR, Screening Asymptomticon 04-07-2022 Coronavirus 2019 RNA by PCR, Screening Asymptomtic Not detected Normal See Below [place] [address] [employer] Work Phone: Comment on above: SOURCE: Nasal, Nasop haryngealReference Range: Not Detected.This test has received FDA Emergency Use Authorization (EUA) and has been verified by [facility]. This test is only authorized for the duration of time that circumstances exist to justify the authorization of the emergency use of in vitro diagnostic tests for the detection of SARS-CoV-2 virus and/or diagnosis of COVID-19 infection under section 564(b)(1) of the Act, 21 U.S.C. 360bbb-3(b)(1), unless the authorization is terminated or revoked sooner. [facility] is certified under CLIA-88 as qualified to perform high complexity testing. Testing is performed in the [facility] laboratory located at [address] [place] [address].SARS-CoV-2/Flu/RSV Multiplex Test: Fact sheet for providers: https://www.fda.gov/media/364012/downloadFact sheet for patients: https://www.fda.gov/media/257704/download Laboratory - Blood bankon ABO group Nom (Bld) O Women [place] [address] [employer] Work Phone: Blood group antibody screen Ql Negative [place] [address] [employer] Work Phone: Rh immune globulin screen (Bld) [Interp] Positive [place] [address] [employer] Work Phone: Laboratory - Chemistry and C hemistry - challengeon 04-07-2022 Albumin BCP dye [Mass/Vol] 3.5 g/dL 3.4 - 5.0 [facility] [employer] Work Phone: ALP [Catalytic activity/Vol] 195 U/L above high threshold 33 - 110 [facility] [employer] Work Phone: ALT With P-5'-P [Catalytic activity/Vol] 11 U/L 7 - 45 [facility] [employer] Work Phone: Comment on above: Patients treated wit h Sulfasalazine may generate falsely decreased results for ALT. Anion gap [Moles/Vol] 14 mmol/L 10 - 20 [facility] [employer] Work Phone: AST With P-5'-P [Catalytic activity/Vol] 15 U/L 9 - 39 [facility] [employer] Work Phone: Bilirubin [Mass/Vol] 0.8 mg/dL 0.0 - 1.2 [facility] Work Phone: Calcium [Mass/Vol] 9.2 mg/dL 8.6 - 10.3 [facility] Work Phone: Chloride [Moles/Vol] 105 mmol/L 98 - 107 [facility] [employer] Work Phone: CO2 [Moles/Vol] 21 mmol/L 21 - 32 [facility] [employer] Work Phone: [phone] Creatinine [Mass/Vol] 0.59 mg/dL See Below [facility]Study[facility] Work Phone: Comment on above: Reference Range: 0.5 0 - 1.05 Glucose [Mass/Vol] 78 mg/dL 74 - 99 [facility] [employer] Work Phone: Potassium [Moles/Vol] 3.8 mmol/L 3.5 - 5.3 [facility] [employer] Work Phone: Protein [Mass/Vol] 6.0 g/dL below low threshold 6.4 - 8.2 [facility] [employer] Work Phone: Sodium [Moles/Vol] 136 mmol/L 136 - 145 [facility] [employer] Work Phone: Urea nitrogen [Mass/Vol] 7 mg/dL 6 - 23 [facility] [employer] Work Phone: Laboratory - Hematology and Cell countson 04-07-2022 Erythrocyte distribution width (RBC) [Ratio] 14.5 % See Below [facility] CenterAudienceViewS[facility] [employer] Work Phone: Comment on above: Reference Range: 11. 5 - 14.5 Hematocrit (Bld) [Volume fraction] 31.9 % below low threshold See Below [employer] [facility] [employer] Work Phone: Comment on above: Reference Range: 36. 0 - 46.0 Hemoglobin (Bld) [Mass/Vol] 10.6 g/dL below low threshold See Below [facility] [employer] Work Phone: Comment on above: Reference Range: 12. 0 - 16.0 MCHC (RBC) [Mass/Vol] 33.3 g/dL See Below [facility] [employer] Work Phone: Comment on above: Reference Range: 32. 0 - 36.0 MCV (RBC) [Entitic vol] 90 fL 80 - 100 [facility] systemProte[facility] [employer] Work Phone: [phone] Platelets (Bld) [#/Vol] 269 10*3/uL 150 - 450 [facility]mem[facility] systemProtectW[facility] [employer] Work Phone: RBC (Bld) [#/Vol] 3.53 {x10E12/L} below low threshold See Below [employer] Work Phone: Comment on above: Reference Range: 4.0 0 - 5.20 WBC (Bld) [#/Vol] 12.9 10*3/uL above high threshold 4.4 - 11.3 [employer] Work Phone: No Panel Informationon 04-07 >90 >90 [employer] Work Phone: Comment on above: CALCULATIONS OF CECE MATED GFR ARE PERFORMED USING THE 2020 CKD-EPI STUDY REFIT EQUATION WITHOUT THE RACE VARIABLE FOR THE IDMS-TRACEABLE CREATININE METHODS.https://jasn.asnjournals.org/content///A SN.8367783103 Risk Screen - OB Triageon Risk Screen - OB Triage Allergies: Allergies: Allergies: No Known Allergies: Patient Verification: Patient Verification: New W ID Band Applied in my Departmentyes Patient Identity Verified Bypatient ID Band FULL Name, include Middle, spelling matches patient's ID used for verificationyes ID Band Matches Patient ID used for Verficationyes ID Band MRN Matches EMR MRNyes Travel History: Travel History: COVID-19 Screening Completedno exposure or symptoms Travel or Exposure Past 30 DaysNO travel to International locations in the past 30 days Advance Directives: Advance Directive: Advance Directive/DNRno Advance Directive Information Givenpatient/family declined Falls Risk: Barr Fall Screen: History of falling (immediate or previous)no (0) Secondary Diagnosisno (0) Intravenous Therapy/ Heparin/Saline Lockno (0) Gait/Transferringnormal/b edrest/wheelchair (0) Ambulatory Aidsnone/bedrest/nurse assist (0) Mental Statusoriented to own ability (0) Score: Low risk (<25). Moderate risk (25-44). High risk (>44).0 Barr InterventionsLOW INTERVENTIONS: *patient oriented to surroundings and call system, * patient/family falls education completed and documented, *patients fall status communicated during bedside handoff, *whiteboard updated, *mode of toileting discussed with patient, *bed in low position with brakes locked, *call light in reach, * non-skid footwear Learning Assessment (Patient): Learning Assessment (Patient): Patient is Able to be Assessed for Learningyes Factors Influencing Readiness to Learninterest in learning Factors that Impact Ability to Learnnone Devices/Methods Used to Communicatenone Learning Preferencesverbal instruction; skill demonstration; written material Cultural Considerationsnone Developmental Considerationsnone Yazidism Considerationsnone Learning Assessment (Other Learner): Other learner availableno Depression/Suicide: Depression Screen: During the past month, have you often been bothered by feeling down, depressed or hopelessno During the past month, have you often had little interest or pleasure in doing thingsno Have you had any thoughts of harming anyone elseno [place] Suicide: Risk Screen Not Applicable/Able to Answerable to be screened In the Past Month: Have you wished you were or could go to sleep and not wake upno In the Past Month: Have you had any actual thoughts of killing yourselfno Lifetime: Have you ever done, started to do, or prepared to do anything to end your lifeno [place] Suicide Risknegative Family Violence: Abuse Screen: Are you or have you been threatened or abused physically, emotionally, or sexually by anyoneno Has anyone ever threatened to hurt your family or your petsno Does anyone try to keep you from having/contacting other friends or doing things outside your homeno Do you feel UNSAFE going back to the place where you are livingno Do you feel anyone has exploited or taken advantage of you financially or of your personal propertyno Clinical assessment: Are there any apparent signs of injuries/behaviors that could be related to abuse/neglectno Electronic Signatures: Eleanor Jim (JONATHON) (Signed 07-Apr-2022 18:36) Authored: Allergies, Patient Verification, Travel History, Advance Directives, Barr Fall Screen, Learning Assessment (Patient), Learning Assessment (Other Learner), Depression/Suicide, Family Violence Last Updated: 07-Apr-2022 18:36 by Eleanor Jim) [facility] SYPHILIS SCREENING WITH REFL EXon 04-07-2022 T. pallidum IgG+IgM IA Ql (S) Non-Reactive See Below [facility] [employer] Work Phone: Comment on above: SOURCE: Reference Ra nge: NONREACTIVENo significant level of Treponema pallidum antibody detected. Repeat testing in 2 to 4 weeks may be considered if early infection or incubating syphilis infection is suspected. TOTAL PROTEIN, URINE SPOTon 04-07-2022 CREATININE,URINE 75.0 mg/dL Normal 20.0 - 320.0 [facility] Comment on above: Performed By: #### T PS2 ####[address] [address] T. PROTEIN/CREAT RATIO 0.20 mg/mg Creat High 0.00 - 0.17 [facility] Comment on above: Performed By: #### T PS2 ####[address] [address] TOTAL PROT,URINE SPOT 15 mg/dL Normal 5 - 24 [facility] Comment on above: Performed By: #### T PS2 ####[address] [address] Total Protein, Urine Spoton 04-07-2022 Creatinine (U) [Mass/Vol] 75.0 mg/dL See Below [place] [address] [employer] Work Phone: Comment on above: Reference Range: 20. 0 - 320.0 Protein (U) [Mass/Vol] 15 mg/dL 5 - 24 [facility] [employer] Work Phone: Protein/Creatinine (U) [Ratio] 0.20 {mg/mg_Creat} above high threshold See Below [place] [address] [employer] Work Phone: Comment on above: Reference Range: 0.0 0 - 0.17 Triage Note - OB v4on 2021 Triage Note - OB v4 Triage: General Info: Time of Arrival on [id number]-Sul-4034 18:19 Patient arrived viawheelchair Arrived [place] Acuity Level4 Time Acuity Level Fgewncvu19-Dgm-7486 18:22 Chief Complaintelevated BP Spoken Language PreferredEnglish Source of Informationpatient Weight in kg71.2 kilogram(s) Weight in vxf324.9 pound(s) Weight Methodactual (measured) Scale Typestanding Height in feet5 feet Height in inches0 inch(es) Height in cm152.4 centimeter(s) Height Methodstated BMI (kg/m2)30.655 square meter Blood Avoidance/Restrictionsnon e(1) Previous Transfusion Reactionnot applicable(1) Patient Belongingsremains with patient Patient Belongings Remaining with Patientclothing Home Meds have been Reviewed and Verified with Patient/Familyyes Info: Gravida1 Term Deliveries0 Deliveries0 Abortions0 Living Children0 Patient stated [id number] Calculation of EGA based on patient stated EDD38.3 Records availableyes Current Risksnone Substance: Smoking Statusnever smoker Alcohol Usedenies Drug Usedenies Drug 2 Usedenies Disposition/Disch: Dispositionadmitted to Labor and Delivery Reason for AdmissionGHTN Patient Meets Criteria for Home Blood Pressure Monitoryes Home Blood Pressure Monitor Providedno, patient already has BP monitor at home or has plans to obtain monitor; given Rx to obtain monitor Travel History: Travel or ExposureNO travel to International locations in the past 30 days Additional Information: Information Review: Allergies have been Reviewed and Verified with Patient/Familyyes Allergy, Intolerance, Adverse Event: Allergies: No Known Allergies: Active Electronic Signatures: Savana Solis (CLIN COOR) (Signed 07-Apr-2022 23:37) Authored: Disposition/Disch Eleanor Jim) (Signed 07-Apr-2022 18:38) Authored: General Info, Info, Substance, Travel History, Additional Information Last Updated: 07-Apr-2022 23:37 by Savana Solis (CLIN COOR) References: 1. Data Referenced From Triage Note - OB v4 03-Apr-2022 12:43 Normal [facility] URIC ACIDon 04-07-2022 Urate [Mass/Vol] 4.8 mg/dL Normal 2.3 - 6.7 [facility] Comment on above: Result Comment: Jordyn puncture immediately after or during the administration of Metamizole may lead to falsely low results. Testing should be performed immediately prior to Metamizole dosing. Performed By: #### U LEANN ####[place] [address] Uric Acid, Serumon Urate [Mass/Vol] 4.8 mg/dL 2.3 - 6.7 [facility] [employer] Work Phone: Comment on above: Venipuncture immedia tely after or during the administration of Metamizole may lead to falsely low results. Testing should be performed immediately prior to Metamizole dosing. Risk Screen - OB Triageon Risk Screen - OB Triage Allergies: Allergies: Allergies: No Known Allergies: Patient Verification: Patient Verification: New W ID Band Applied in my Departmentyes Patient Identity Verified Bypatient ID Band FULL Name, include Middle, spelling matches patient's ID used for verificationyes ID Band Matches Patient ID used for Verficationyes ID Band MRN Matches EMR MRNyes Travel History: Travel History: COVID-19 Screening Completedno exposure or symptoms Travel or Exposure Past 30 DaysNO travel to International locations in the past 30 days Advance Directives: Advance Directive: Advance Directive/DNRno Advance Directive Information Givenpatient/family declined Falls Risk: Barr Fall Screen: History of falling (immediate or previous)no (0) Secondary Diagnosisno (0) Intravenous Therapy/ Heparin/Saline Lockno (0) Gait/Transferringnormal/b edrest/wheelchair (0) Ambulatory Aidsnone/bedrest/nurse assist (0) Mental Statusoriented to own ability (0) Score: Low risk (<25). Moderate risk (25-44). High risk (>44).0 Barr InterventionsLOW INTERVENTIONS: *patient oriented to surroundings and call system, * patient/family falls education completed and documented, *patients fall status communicated during bedside handoff, *whiteboard updated, *mode of toileting discussed with patient, *bed in low position with brakes locked, *call light in reach, * non-skid footwear Learning Assessment (Patient): Learning Assessment (Patient): Patient is Able to be Assessed for Learningyes Factors Influencing Readiness to Learnpain Factors that Impact Ability to Learnnone Devices/Methods Used to Communicatenone Learning Preferencesverbal instruction; written material Cultural Considerationsnone Developmental Considerationsnone Yazidism Considerationsnone Learning Assessment (Other Learner): Other learner availableno Depression/Suicide: Depression Screen: During the past month, have you often been bothered by feeling down, depressed or hopelessno During the past month, have you often had little interest or pleasure in doing thingsno Have you had any thoughts of harming anyone elseno [place] Suicide: Risk Screen Not Applicable/Able to Answerable to be screened In the Past Month: Have you wished you were or could go to sleep and not wake upno In the Past Month: Have you had any actual thoughts of killing yourselfno Lifetime: Have you ever done, started to do, or prepared to do anything to end your lifeno [place] Suicide Risknegative Family Violence: Abuse Screen: Are you or have you been threatened or abused physically, emotionally, or sexually by anyoneno Do you feel UNSAFE going back to the place where you are livingno Clinical assessment: Are there any apparent signs of injuries/behaviors that could be related to abuse/neglectno Electronic Signatures: Lalitha Shultz (RN) (Signed 03-Apr-2022 12:42) Authored: Allergies, Patient Verification, Travel History, Advance Directives, Barr Fall Screen, Learning Assessment (Patient), Learning Assessment (Other Learner), Depression/Suicide, Family Violence Last Updated: 03-Apr-2022 12:42 by Lalitha Shultz (RN) [facility] GROUP B STREP SCREENon 03-23 GROUP B STREP SCREEN PATIENT: JASMIN CRAIN LOCATION: [address]#: [id number] : 89 AGE: SEX: F ORDERED BY: ASTER FRANK SOURCE: VAGINAL COLLECTED: 03/23/22 09:12 ANTIBIOTICS AT JOSE.: RECEIVED : 03/23/22 16:39 SITE: VAGINAL R E S U L T S GROUP B STREP SCREEN FINAL 03/25/22 15:37 ISOLATE1 : Group B streptococcus ISOLATED Normal [facility] Comment on above: Performed By: #### G BSCR #### [facility] [address] [place] [address] Laboratory - Microbiology an d Antimicrobial susceptibilityon 03-23-2022 Bacteria identified Aer cx Nom (Genital specimen) Abnormal [facility] [address] Work Phone: GLUCOSE RAVIN,3HR PREGNANCYon 01-30-2022 Glucose [Mass/Vol] 113 mg/dL Normal <155 [facility] Comment on above: Performed By: #### G TTP3 #### [address] [address] Glucose [Mass/Vol] 99 mg/dL Normal <140 [facility] Comment on above: Performed By: #### G TTP3 #### [address] [address] Glucose [Mass/Vol] 76 mg/dL Normal <95 [facility] Comment on above: Performed By: #### G TTP3 #### [address] [address] Glucose [Mass/Vol] 127 mg/dL Normal <180 [facility] Comment on above: Performed By: #### G TTP3 #### [address] [address] INTERPRETATION SEE BELOW Normal [facility] Comment on above: Result Comment: Diag nostics with glucose loading dose of 100 g. Reference values from [employer]. Diabetes Care 2015;38(Suppl.1):S8-S16. Performed By: #### G TTP3 #### [address] [address] No Panel Informationon 01-30 SEE BELOW [facility] [employer] Work Phone: Comment on above: Diagnostics with glu cose loading dose of 100 g. Reference values from [employer]. Diabetes Care 2015;38(Suppl.1):S8-S16. 99 mg/dL <140 [facility] [employer] Work Phone: 113 mg/dL <155 [facility] [employer] Work Phone: 127 mg/dL <180 [facility] [employer] Work Phone: 76 mg/dL <95 [facility] [employer] Work Phone: CBCon 01-26-2022 Erythrocyte distribution width (RBC) [Ratio] 13.7 % Normal 11.5 - 14.5 [facility] Comment on above: Performed By: #### C BC #### [address] [address] Hematocrit (Bld) [Volume fraction] 33.2 % Low 36.0 - 46.0 [facility] Comment on above: Performed By: #### C BC #### [address] [address] Hemoglobin (Bld) [Mass/Vol] 11.1 g/dL Low 12.0 - 16.0 [facility] Comment on above: Performed By: #### C BC #### [address] [address] MCHC (RBC) [Mass/Vol] 33.4 g/dL Normal 32.0 - 36.0 [facility] Comment on above: Performed By: #### C BC #### [address] [address] MCV (RBC) [Entitic vol] 93 fL Normal 80 - 100 [facility] Comment on above: Performed By: #### C BC #### [address] [address] Platelets (Bld) [#/Vol] 325 10*3/uL Normal 150 - 450 [facility] Comment on above: Performed By: #### C BC #### [address] [address] RBC 3.59 x10E12/L Low 4.00 - 5.20 [facility] Comment on above: Performed By: #### C BC #### [address] [address] WBC (Bld) [#/Vol] 14.4 10*3/uL High 4.4 - 11.3 [facility] Comment on above: Performed By: #### C BC #### [address] [address] GLUCOSE,1 HR SCREEN, PREGon 01-26-2022 Glucose [Mass/Vol] 137 mg/dL Abnormal <135 [facility] Comment on above: Result Comment: Diag nostic value with glucose loading dose of 50 g. Reference values from [employer]. Diabetes Care 2015;38(Suppl.1):S8-S16 Performed By: #### G LUS1 #### [facility] [address] [place] [address] Glucose, 1 Hour Screen, Preg nancyon 01-26-2022 Glucose 1 Hr post 50 g glucose PO [Mass/Vol] 137 mg/dL Abnormal <135 [employer] Work Phone: Comment on above: Diagnostic value wit h glucose loading dose of 50 g. Reference values from [employer]. Diabetes Care 2015;38(Suppl.1):S8-S16 Laboratory - Hematology and Cell countson 01-26-2022 Erythrocyte distribution width (RBC) [Ratio] 13.7 % See Below [employer] Work Phone: Comment on above: Reference Range: 11. 5 - 14.5 Hematocrit (Bld) [Volume fraction] 33.2 % below low threshold See Below [employer] Work Phone: Comment on above: Reference Range: 36. 0 - 46.0 Hemoglobin (Bld) [Mass/Vol] 11.1 g/dL below low threshold See Below [employer] Work Phone: Comment on above: Reference Range: 12. 0 - 16.0 MCHC (RBC) [Mass/Vol] 33.4 g/dL See Below [facility] Work Phone: Comment on above: Reference Range: 32. 0 - 36.0 MCV (RBC) [Entitic vol] 93 fL 80 - 100 [employer] Work Phone: [phone] Platelets (Bld) [#/Vol] 325 10*3/uL 150 - 450 [employer] Work Phone: RBC (Bld) [#/Vol] 3.59 {x10E12/L} below low threshold See Below [employer] Work Phone: Comment on above: Reference Range: 4.0 0 - 5.20 WBC (Bld) [#/Vol] 14.4 10*3/uL above high threshold 4.4 - 11.3 [facility]ie [facility] [employer] Work Phone: Risk Screen - OB Triageon Risk Screen - OB Triage Allergies: Allergies: Allergies: No Known Allergies: Patient Verification: Patient Verification: New W ID Band Applied in my Departmentyes Patient Identity Verified Bypatient ID Band FULL Name, include Middle, spelling matches patient's ID used for verificationyes ID Band Matches Patient ID used for Verficationyes ID Band MRN Matches EMR MRNyes Travel History: Travel History: COVID-19 Screening Completedno exposure or symptoms Travel or Exposure Past 30 DaysNO travel to International locations in the past 30 days Advance Directives: Advance Directive: Advance Directive/DNRno Advance Directive Information Givenpatient/family declined Falls Risk: Barr Fall Screen: History of falling (immediate or previous)no (0) Secondary Diagnosisno (0) Intravenous Therapy/ Heparin/Saline Lockno (0) Gait/Transferringnormal/b edrest/wheelchair (0) Ambulatory Aidsnone/bedrest/nurse assist (0) Mental Statusoriented to own ability (0) Score: Low risk (<25). Moderate risk (25-44). High risk (>44).0 Barr InterventionsLOW INTERVENTIONS: *patient oriented to surroundings and call system, * patient/family falls education completed and documented, *patients fall status communicated during bedside handoff, *whiteboard updated, *mode of toileting discussed with patient, *bed in low position with brakes locked, *call light in reach, * non-skid footwear Learning Assessment (Patient): Learning Assessment (Patient): Patient is Able to be Assessed for Learningyes Factors Influencing Readiness to Learninterest in learning Factors that Impact Ability to Learnnone Devices/Methods Used to Communicatenone Learning Preferencesverbal instruction Cultural Considerationsnone Developmental Considerationsnone Yazidism Considerationsnone Other Learnersmother Learning Assessment (Other Learner): Other learner availableno Learning Assessment (Other Learner) CommentsPt's mother went for a snack Depression/Suicide: Depression Screen: During the past month, have you often been bothered by feeling down, depressed or hopelessno During the past month, have you often had little interest or pleasure in doing thingsno Have you had any thoughts of harming anyone elseno [place] Suicide: Risk Screen Not Applicable/Able to Answerable to be screened In the Past Month: Have you wished you were or could go to sleep and not wake upno In the Past Month: Have you had any actual thoughts of killing yourselfno Lifetime: Have you ever done, started to do, or prepared to do anything to end your lifeno [place] Suicide Risknegative Family Violence: Abuse Screen: Are you or have you been threatened or abused physically, emotionally, or sexually by anyoneno Has anyone ever threatened to hurt your family or your petsno Does anyone try to keep you from having/contacting other friends or doing things outside your homeno Do you feel UNSAFE going back to the place where you are livingno Do you feel anyone has exploited or taken advantage of you financially or of your personal propertyno Clinical assessment: Are there any apparent signs of injuries/behaviors that could be related to abuse/neglectno Electronic Signatures: Padmini Sarkar (RN) (Signed 15-Jan-2022 13:00) Authored: Allergies, Patient Verification, Travel History, Advance Directives, Abrr Fall Screen, Learning Assessment (Patient), Learning Assessment (Other Learner), Depression/Suicide, Family Violence Last Updated: 15-Jan-2022 13:00 by Padmini Sarkar (JONATHON) [facility] Triage Note - OB v4on 2021 Triage Note - OB v4 Triage: General Info: Time of Arrival on [id number] 10:30 Patient arrived viaambulatory Arrived Fromponderay Acuity Level5 Chief ComplaintPressure Home Meds have been Reviewed and Verified with Patient/Familyyes Info: Gravida1 Term Deliveries0 Deliveries0 Abortions0 Living Children0 Patient stated [id number] Calculation of EGA based on patient stated EDD26.5 Substance: Smoking Statusnever smoker Alcohol Usedenies Drug Usedenies Drug 2 Usedenies Disposition/Disch: Dispositionplaced in an observation care level Patient Meets Criteria for Home Blood Pressure Monitorno Travel History: Travel or ExposureNO travel to International locations in the past 30 days Additional Information: Information Review: Allergies have been Reviewed and Verified with Patient/Familyyes Allergy, Intolerance, Adverse Event: Allergies: No Known Allergies: Active Electronic Signatures: Padmini Sarkar (RN) (Signed 15-Jan-2022 12:56) Authored: General Info, Info, Substance, Disposition/Disch, Travel History, Additional Information Last Updated: 15-Jan-2022 12:56 by Padmini Sarkar (RN) Normal [facility] URINALYSISon 01-15-2022 Appearance (U) CLEAR Normal CLEAR [facility] Comment on above: Performed By: #### C OINP #### [place] [address] Bilirubin Ql (U) Negative Normal NEGATIVE [facility] Comment on above: Performed By: #### C OINP #### [place] [address] Color (U) Straw Normal STRAW,YELLOW [facility] Comment on above: Performed By: #### C OINP #### [place] [id number] Glucose Ql (U) Negative Normal NEGATIVE [facility] Comment on above: Performed By: #### C OINP #### [address] [address] Hemoglobin Ql (U) Negative Normal NEGATIVE [facility] Comment on above: Performed By: #### C OINP #### [address] [address] Ketones Ql (U) Negative Normal NEGATIVE [facility] Comment on above: Performed By: #### C OINP #### [place] [id number] Leukocyte esterase Test strip Ql (U) Negative Normal NEGATIVE [facility] Comment on above: Performed By: #### C OINP #### [address] [address] Nitrite Ql (U) Negative Normal NEGATIVE [facility] Comment on above: Performed By: #### C OINP #### [place] [id number] pH (U) 7.0 [pH] Normal 5.0 - 8.0 [facility] Comment on above: Performed By: #### C OINP #### [address] [address] Protein Ql (U) Negative Normal NEGATIVE [facility] Comment on above: Performed By: #### C OINP #### [address] [address] Specific gravity (U) [Rel density] 1.003 Low 1.005 - 1.035 [facility] Comment on above: Performed By: #### C OINP #### [address] [address] Urobilinogen (U) [Mass/Vol] mg/dL Normal 0.0 - 1.9 [facility] Comment on above: Performed By: #### C OINP #### [address] [address] Urinalysison 01-15-2022 Color (U) Straw See Below [employer] Work Phone: Comment on above: Reference Range: STR AW,YELLOW Glucose Ql (U) Negative NEGATIVE [facility] [employer] Work Phone: Ketones Ql (U) Negative NEGATIVE [facility] [employer] Work Phone: Leukocyte esterase Test strip Ql (U) Negative NEGATIVE [facility] [employer] Work Phone: pH (U) 7.0 [pH] 5.0 - 8.0 [employer] Work Phone: Protein (U) [Mass/Vol] Negative NEGATIVE Wo [employer] Work Phone: RBC (U) [#/Vol] Negative NEGATIVE [facility] [employer] Work Phone: Specific gravity (U) [Rel density] 1.003 1 below low threshold See Below [employer] Work Phone: Comment on above: Reference Range: 1.0 05 - 1.035 Urinalysis Negative NEGATIVE [facility] [employer] Work Phone: Urinalysis <2.0 0.0 - 1.9 [facility] [employer] Work Phone: Urinalysis CLEAR CLEAR [place] [address] [employer] Work Phone: No Panel Informationon 11-24 Please click on the link to view the study images Normal [facility] [employer] Work Phone: Normal [facility] [employer] Work Phone: Laboratory - Chemistry and C hemistry - challengeon 11-10-2021 Second trimester quad maternal screen panel SEE BELOW [facility] [employer] Work Phone: Comment on above: Genetics test res ults are available electronically in the [facility] under Diagnostic Testing-> Genetics.Results will be sent on a separate report. Cult, Urineon 09-22-2021 Bacteria identified Cx Nom (U) [facility] [employer] Work Phone: GC + Chlamydia By Amplified Detectionon 09-22-2021 C. trachomatis rRNA SHEN+probe Ql (Unsp spec) Negative Negative [place] [address] [employer] Work Phone: Comment on above: The APTIMA Combo 2 a ssay is FDA-approved for Chlamydia trachomatis and Neisseria gonorrhoeae testing on female endocervical and vaginal swabs, ThinPrep liquid pap samples, male urine samples and urethral swabs. Performance characteristics for Chlamydia trachomatis and Neisseria gonorrhoeae testing on specific tlu-YVN-slycbxax sample types (female urine samples) have been validated by [facility]. This laboratory is certified by CLIA to perform high complexity testing. Samples from all other sites are not validated for this method. N. gonorrhoeae rRNA SHEN+probe Ql (Unsp spec) Negative Negative [facility] [employer] Work Phone: Comment on above: SOURCE: Urine The AP ALBAN Combo 2 assay is FDA-approved for Chlamydia trachomatis and Neisseria gonorrhoeae testing on female endocervical and vaginal swabs, ThinPrep liquid pap samples, male urine samples and urethral swabs. Performance characteristics for Chlamydia trachomatis and Neisseria gonorrhoeae testing on specific saz-WIT-nzdimsyz sample types (female urine samples) have been validated by [facility]. This laboratory is certified by CLIA to perform high complexity testing. Samples from all other sites are not validated for this method. HIV 1/2 ANTIGEN/ANTIBODY SCR EEN WITH REFLEX TO CONFIRMATIONon 09-22-2021 HIV 1+2 Ab Qn (S) Non-Reactive See Below [facility] [employer] Work Phone: Comment on above: SOURCE: Reference Ra nge: NONREACTIVE HIV Ag/Ab screen is performed using the Siemens Barnebys HIV Ag/Ab Combo assay which detects the presence of HIV p24 antigen as well as antibodies to HIV-1 (Group M and O) and HIV-2..No laboratory evidence of HIV infection. If acute HIV infection is suspected, consider testing for HIV RNA by PCR (viral load). Hepatitis B Surface Antigeno n 09-22-2021 Hepatitis B Surface Antigen Non-Reactive See Below [facility] [employer] Work Phone: Comment on above: SOURCE: Reference Ra nge: NONREACTIVE Biotin interference may cause falsely decreased results. Patients taking a Biotin dose of up to 5 mg/day should refrain from taking Biotin for 24 hours before sample collection. Providers may contact their local laboratory for further information. SOURCE: Reference Ra nge: NONREACTIVE Results from patients taking biotin supplements or receiving high-dose biotin therapy should be interpreted with caution due to possible interference with this test. Providers may contact their local laboratory for further information. Laboratory - Blood bankon ABO group Nom (Bld) O [facility] [employer] Work Phone: Blood group antibody screen Ql Negative [facility] [employer] Work Phone: Rh immune globulin screen (Bld) [Interp] Positive [facility] Work Phone: ABO group Nom (Bld) Canceled Women [place] [address] [employer] Work Phone: Blood group antibody screen Ql Canceled [facility] [address] [address] Work Phone: Rh immune globulin screen (Bld) [Interp] Canceled [place] [address] [address] Work Phone: Laboratory - Cytologyon 09-05 Cytology report Cyto stain.thin prep Doc (Cvx/Vag) [place] [address] [address] Work Phone: Laboratory - Hematology and Cell countson 09-22-2021 Erythrocyte distribution width (RBC) [Ratio] 13.6 % See Below [place] [address] [address] Work Phone: Comment on above: Reference Range: 11. 5 - 14.5 Hematocrit (Bld) [Volume fraction] 37.8 % See Below [place] [address] [address] Work Phone: Comment on above: Reference Range: 36. 0 - 46.0 Hemoglobin (Bld) [Mass/Vol] 12.7 g/dL See Below [place] [address] [address] Work Phone: Comment on above: Reference Range: 12. 0 - 16.0 MCHC (RBC) [Mass/Vol] 33.6 g/dL See Below [facility] [address] [employer] Work Phone: Comment on above: Reference Range: 32. 0 - 36.0 MCV (RBC) [Entitic vol] 89 fL 80 - 100 [place] [address] [employer] Work Phone: [phone] Platelets (Bld) [#/Vol] 347 10*3/uL 150 - 450 [facility] [address] [employer] Work Phone: [phone] RBC (Bld) [#/Vol] 4.22 {x10E12/L} See Below [facility] roadKn[facility] Inc.[place] [address] [employer] Work Phone: Comment on above: Reference Range: 4.0 0 - 5.20 WBC (Bld) [#/Vol] 9.2 10*3/uL 4.4 - 11.3 [facility] [place] [address] [address] Work Phone: No Panel Informationon 09-22 NONE [facility] Work Phone: Rubella IgG Antibodyon 09-22 Rubella virus IgG IA Ql Positive [facility] Work Phone: Comment on above: INTERPRETATIVE COMME NT NEGATIVE: No IgG antibodies specific to Rubella detected. It is likely that the patient has not had a previous exposure to Rubella through infection or vaccination. Alternatively, the patient may have been exposed to Rubella but a failure to respond may indicate immunodeficiency. EQUIVOCAL:Equivocal results; obtain additional sample for retesting. POSITIVE: IgG antibody to Rubella detected. This may indicate that the patient was exposed to Rubella through infection or vaccination.The interpretation of serological tests should take into accountthe immunological status of the patient. Test results forpatients, including immunocompromised patients, neonates, andpediatric patients, reflect their capacity to respondimmunologically to the virus as well as their exposure to thepathogen. Patients treated with IVIG may demonstrate alteredresults in serological assays. SYPHILIS SCREENING WITH REFL EXon 09-22-2021 T. pallidum IgG+IgM IA Ql (S) Non-Reactive See Below [address] Work Phone: Comment on above: Reference Range: NON REACTIVENo significant level of Treponema pallidum antibody detected. Repeat testing in 2 to 4 weeks may be considered if early infection or incubating syphilis infection is suspected. TYPE + SCREENon 09-22-2021 ABO TYPE O Normal [facility] Comment on above: Performed By: #### C OINP #### [place] [address] RH TYPE Positive Normal [facility] Comment on above: Performed By: #### C OINP #### [place] [id number] IO HCG, Urine Test on 08-25-2021 HCG ( test) Ql (U) Positive [address] Work Phone: LMPon 08-25-2021 Last menstrual period start date 29Jun2021 [employer] Work Phone: IVF EMBRYOLOGIST - Office Visiton 08-08 IVF EMBRYOLOGIST - Office Visit Diagnoses/Problems Assessed Positive urine test (V72.42) (Z32.01) Secondary amenorrhea (626.0) (N91.1) Nausea and vomiting of , antepartum (643.93) (O21.9) Orders Start: B-6 50 MG Oral Tablet; TAKE 1 TABLET TWICE DAILY Start: Unisom SleepTabs 25 MG Oral Tablet; TAKE 1 TABLET AT BEDTIME IO HCG, Urine Test; Status:Resulted - Requires Verification; Done: 25Aug2021 11:31AM Start: Vitamin Plus Low Iron 27-1 MG Oral Tablet; TAKE 1 TABLET DAILY Follow-up visit in 1 month Outpatient Follow-up Status: Hold For - Scheduling Requested for: 25Aug2021 Tobacco Use Screening; Status:Complete; Done: 25Aug2021 Provider Impressions 1) secondary y amenorrhea-ultrasound today better than last menstrual period. Will use ultrasound for dating. Lifestyle modification discussed at length. vitamins prescribed 2) nausea and vomiting-prescription sent to pharmacy. Precautions reviewed return to triage. Chief Complaint PT IS A NEW PT HERE TODAY FOR AMENORRHEA. HAS NO CONCERNS. FEELS NAUSEOUS, SOME VOMITING. HAS MILD CRAMPING. DENIES ANY BLEEDING. HAS BREAST TENDERNESS. History of Present [id number]-dpm G1, P0 presents for secondary menorrhea. Patient has a history of irregular cycles. Patient anxious. Patient not even tried about a year. Patient has some nausea and vomiting though was able to manage with them in the morning. Has little cramps no bleeding. Has had some round ligament pain. Patient has not picked up vitamins. Review of Systems Constitutional: No fevers, chills Eye:no vision changes Respiratory: no SOB Cardiovascular: no chest pain Breast: Tenderness Gastrointestinal: + nausea. No vomiting, diarrhea, constipation, abdominal pain Genitourinary:no dysuria Gynecology: See HPI Endocrine: No heat or cold intolerance Musculoskeletal: No decreased ROM Skin:No rash Neurologic: No numbness tingling Psychiatric: No anxiety, depression All other: all other systems reviewed and negative for complaint Active Problems Problems Positive urine test (V72.42) (Z32.01) Past Medical History Problems History of Menstruation AGE 17 Surgical History Problems No history of surgery Family History Mother Family history of migraine headaches (V17.2) (Z82.0) Father Family history of migraine headaches (V17.2) (Z82.0) Grandmother Family history of lung cancer (V16.1) (Z80.1) Grandfather Family history of cardiac disorder (V17.49) (Z82.49) Family history of malignant neoplasm of stomach (V16.0) (Z80.0) Social History Problems Does not use illicit drugs (V49.89) (Z78.9) Non-smoker (V49.89) (Z78.9) Occasional alcohol use Sexually active Allergies Medication No Known Drug Allergies Recorded By: Tari Schafer; 08/25/2021 11:22:44 AM Current Meds Medication NameInstruction No Reported Medications Vitals Vital Signs Recorded: [id number] 11:35AM Umbxyzmbmrq03.8 F Ckukcobi375 Gleqkqzml78 Height5 ft Fluypp605 lb 12.80 oz BMI Ylczkttsrq04.52 kg/m2 BSA Calculated1.58 [id number] Physical Exam General: None acute distress Eye: Intraocular movements are intact HEENT: Normocephalic Cardiovascular: Regular rate rhythm Respiratory: Lungs are clear to auscultation, respirations are nonlabored Gastrointestinal: Soft nontender nondistended normal bowel sounds Musculoskeletal: Normal range of motion Skin: Warm and dry Neurologic: Alert and oriented x3 Psychiatric: Cooperative appropriate mood and affect. Results/Data IO HCG, Urine [id number] 11:31Aster Leonard MEDLINE LOT: [id number] EXP: 11/04/2022 Test NameResultFlagReference IO Urine hCGPositive Procedure Transvaginal ultrasound shows a single live fetus with positive cardiac motion. [place]-rump length measures 0.53 cm consistent with 6 weeks 2 days with a due date of April 18, 2022. Signatures Electronically signed by : Aster Frank DO; Aug 25 2021 12:04PM EST (Author) Normal [employer] US SOFT TISSUE NECK OR HEADo n 05-05-2021 Single, mildly prominent right cervical level 2 lymph node corresponds to the area of concern. Findings are likely benign. Recommend continued clinical follow-up. Short-term ultrasound follow-up could be considered if persistent clinical concern. [employer] Workstation ID: [id number] Counsyl EXAMINATION: US SOFT TISSUE NECK OR HEAD. HISTORY: ORDERING SYSTEM PROVIDED HISTORY: Lymph nodes. TECHNOLOGIST PROVIDED HISTORY: Illness/Other Reason for exam: Rt cervical lymphadenopathy. Cancer History: u Surgery, RadiationHistory: u Encounter Type: Initial Additional signs and symptoms: None. ORDERING SYSTEM PROVIDED DIAGNOSIS CODES: R59.0 Lymphadenopathy, anterior cervical. COMPARISON: None. TECHNIQUE: Targeted ultrasound of the right anterior neck cervical level 2 region. FINDINGS: Mildly prominent reniform-shaped right cervical level 2 lymph node with echogenic fatty hilum, measures 2.2 x 0.6 x 1.0 cm. No additional prominent regional cervical lymph nodes identified. [employer] [facility] Joellen Matson, DO - 05/05/2021 EXAMINATION: US SOFT TISSUE NECK OR HEAD. HISTORY: ORDERING SYSTEM PROVIDED HISTORY: Lymph nodes. TECHNOLOGIST PROVIDED HISTORY: Illness/Other Reason for exam: Rt cervical lymphadenopathy. Cancer History: u Surgery, RadiationHistory: u Encounter Type: Initial Additional signs and symptoms: None. ORDERING SYSTEM PROVIDED DIAGNOSIS CODES: R59.0 Lymphadenopathy, anterior cervical. COMPARISON: None. TECHNIQUE: Targeted ultrasound of the right anterior neck cervical level 2 region. FINDINGS: Mildly prominent reniform-shaped right cervical level 2 lymph node with echogenic fatty hilum, measures 2.2 x 0.6 x 1.0 cm. No additional prominent regional cervical lymph nodes identified. IMPRESSION: Single, mildly prominent right cervical level 2 lymph node corresponds to the area of concern. Findings are likely benign. Recommend continued clinical follow-up. Short-term ultrasound follow-up could be considered if persistent clinical concern. [employer] Workstation ID: [id number] [employer] US SOFT TISSUE NECK OR HEADO rdered By: Joellen Matson on 05-05-2021 [facility] Work Phone: US SOFT TISSUE NECK OR HEADo n 05-03-2021 US SOFT TISSUE NECK OR HEAD EXAMINATION: US SOFT TISSUE NECK OR HEAD. HISTORY: ORDERING SYSTEM PROVIDED HISTORY: Lymph nodes. TECHNOLOGIST PROVIDED HISTORY: Illness/Other Reason for exam: Rt cervical lymphadenopathy. Cancer History: u Surgery, RadiationHistory: u Encounter Type: Initial Additional signs and symptoms: None. ORDERING SYSTEM PROVIDED DIAGNOSIS CODES: R59.0 Lymphadenopathy, anterior cervical. COMPARISON: None. TECHNIQUE: Targeted ultrasound of the right anterior neck cervical level 2 region. FINDINGS: Mildly prominent reniform-shaped right cervical level 2 lymph node with echogenic fatty hilum, measures 2.2 x 0.6 x 1.0 cm. No additional prominent regional cervical lymph nodes identified. IMPRESSION: Single, mildly prominent right cervical level 2 lymph node corresponds to the area of concern. Findings are likely benign. Recommend continued clinical follow-up. Short-term ultrasound follow-up could be considered if persistent clinical concern. ST/alt Workstation ID: [id number] Dictated by: JOELLEN MATSON on SatMay 05, 2021 1:58:47 PM EDT Transcribed by: MODESTA RIOS on SatMay 05, 2021 2:13:00 PM EDT Finalized by: JOELLEN MATSON on SatMay 05, 2021 7:53:41 PM EDT [facility] Comment on above: Order Comment: Injur y/Trauma or Illness?:Illness/Other How long have you had these symptoms (acute/chronic)?:Acute Reason for exam?:rt cervical lymphadenopathy History of cancer?:u Surgeries, chemotherapy, or radiation?:u Type of Exam?:Initial Additional signs and symptoms?:none Radiology Study observation (narrative) [facility] HIV 1/2 SCREEN (4TH GENERATI ON)on 04-25-2021 HIV 1+2 Ab+HIV1 p24 Ag IA Ql Negative Negative [facility] Interpretation and review of laboratory results Normal [facility] This assay screens f or the presence of HIV-1, HIV-2 antibodies and for the presence of HIV-1 antigen. Test performed using Berry ANGELICA immunoassay system [facility] Comprehensive metabolic 2000 panelon 04-24-2021 Albumin [Mass/Vol] 4.0 g/dL 3.2 - 5.2 g/dL [facility] ALP [Catalytic activity/Vol] 81 U/L 40 - 140 U/L [facility] ALT [Catalytic activity/Vol] 21 U/L 14 - 65 U/L [facility] Anion gap [Moles/Vol] 10 mmol/L 10 - 2 0 mmol/L [facility] AST [Catalytic activity/Vol] 16 U/L 0 - 45 U/L [facility] Bilirubin [Mass/Vol] 1.5 mg/dL High 0.0 - 1 .3 mg/dL [facility] Calcium [Mass/Vol] 9.2 mg/dL 8.4 - 10. 2 mg/dL [facility] Chloride [Moles/Vol] 107 mmol/L 98 - 10 8 mmol/L [facility] Creatinine [Mass/Vol] 0.69 mg/dL 0.40 - 1.10 [facility] GFR/1.73 sq M.predicted CKD-EPI (S/P/Bld) [Vol rate/Area] 122 >=60 mL/min/1.73 m2 [facility] Glucose [Mass/Vol] 94 mg/dL 65 - 99 mg/dL [facility] HCO3 [Moles/Vol] 26 mmol/L 21 - 32 mmol/L [facility] Interpretation and review of laboratory results Abnormal [facility] Potassium [Moles/Vol] 3.9 mmol/L 3.5 - 5.1 mmol/L [facility] Protein [Mass/Vol] 7.7 g/dL 6.0 - 8.0 g/dL [facility] Sodium [Moles/Vol] 139 mmol/L 135 - 145 mmol/L [facility] Urea nitrogen [Mass/Vol] 12 mg/dL 8 - 25 mg/dL [facility] Urea nitrogen/Creatinine [Mass ratio] 17.4 mg/mg [facility] The eGFR should be u sed for monitoring renal function only and not for medication dosing. [facility] EBV Antibody Profile (IGG/M, EBNA)on 04-24-2021 EBV capsid IgG Ql (S) Positive Abnormal Negative [facility] EBV capsid IgM Ql (S) Negative Negative [facility] EBV nuclear Ab Ql (S) Positive Abnormal Negative [facility] Interpretation and review of laboratory results Abnormal [facility] Assay performed eliazar whitehead digedurin CLIA methodology. [facility] No Panel Informationon 04-24 [facility] TSH DL <= 0.005 mIU/L Qnon 1 Interpretation and review of laboratory results Normal [facility] TSH Qn 1.27 m[IU]/L [facility] Vital Signs Date Time Vital Sign Value Performing Clinician Facility 03-17-2025 09:23-0400 Body height 160.02 cm DEFINED NOT [facility] 03-17-2025 09:23-0400 Body mass index (BMI) [Ratio] 29.8 kg/m2 DEFINED NOT [facility] 03-17-2025 09:23-0400 Body weight 76.34 kg DEFINED NOT [facility] 03-17-2025 09:23-0400 Diastolic blood pressure 89 mm[Hg] DEFINED NOT [facility] 03-17-2025 09:23-0400 Systolic blood pressure 135 mm[Hg] DEFINED NOT [facility] 03-10-2025 14:27-0400 Body height 160.02 cm DEFINED [facility] 03-10-2025 14:23-0400 Body mass index (BMI) [Ratio] 29.5 kg/m2 DEFINED NOT [facility] 03-10-2025 14:23-0400 Body weight 75.77 kg DEFINED [facility] 03-10-2025 14:23-0400 Diastolic blood pressure 85 mm[Hg] DEFINED NOT [facility] 03-10-2025 14:23-0400 Systolic blood pressure 129 mm[Hg] DEFINED [facility] 03-03-2025 14:51-0400 Body height 160.02 cm DEFINED NOT [facility] 03-03-2025 14:51-0400 Body mass index (BMI) [Ratio] 29.4 kg/m2 DEFINED NOT [facility] 03-03-2025 14:51-0400 Body weight 75.38 kg DEFINED [facility] 03-03-2025 14:51-0400 Diastolic blood pressure 87 mm[Hg] DEFINED NOT [facility] 03-03-2025 14:51-0400 Systolic blood pressure 131 mm[Hg] DEFINED NOT [facility] 02-26-2025 15:25-0400 Body height 160.02 cm DEFINED NOT [facility] 02-26-2025 15:25-0400 Body mass index (BMI) [Ratio] 29.5 kg/m2 DEFINED NOT [facility] 02-26-2025 15:25-0400 Body weight 75.77 kg DEFINED [facility] 02-26-2025 15:25-0400 Diastolic blood pressure 87 mm[Hg] DEFINED NOT [facility] 02-26-2025 15:25-0400 Systolic blood pressure 132 mm[Hg] DEFINED NOT [facility] 02-15-2025 15:37-0400 Body height 160.02 cm DEFINED NOT [facility] 02-15-2025 15:34-0400 Body mass index (BMI) [Ratio] 29.4 kg/m2 DEFINED NOT [facility] 02-15-2025 15:34-0400 Body weight 75.38 kg DEFINED NOT [facility] 02-15-2025 15:34-0400 Diastolic blood pressure 78 mm[Hg] DEFINED NOT [facility] 02-15-2025 15:34-0400 Systolic blood pressure 133 mm[Hg] DEFINED NOT [facility] 02-01-2025 14:55-0400 Body height 160.02 cm DEFINED NOT [facility] 02-01-2025 14:55-0400 Body mass index (BMI) [Ratio] 29 kg/m2 DEFINED NOT [facility] 02-01-2025 14:55-0400 Body weight 74.44 kg DEFINED NOT [facility] 02-01-2025 14:55-0400 Diastolic blood pressure 85 mm[Hg] DEFINED NOT [facility] 02-01-2025 14:55-0400 Systolic blood pressure 121 mm[Hg] DEFINED NOT [facility] 01-25-2025 09:30-0400 Body height 160.02 cm DEFINED NOT [facility] 01-25-2025 09:30-0400 Body mass index (BMI) [Ratio] 28.5 kg/m2 DEFINED NOT [facility] 01-25-2025 09:30-0400 Body weight 73.25 kg DEFINED NOT [facility] 01-25-2025 09:30-0400 Diastolic blood pressure 78 mm[Hg] DEFINED NOT [facility] 01-25-2025 09:30-0400 Systolic blood pressure 123 mm[Hg] DEFINED NOT [facility] 01-04-2025 14:10-0400 Body height 160.02 cm DEFINED NOT [facility] 01-04-2025 14:10-0400 Body mass index (BMI) [Ratio] 28.4 kg/m2 DEFINED NOT [facility] 01-04-2025 14:10-0400 Body weight 72.8 kg DEFINED [facility] 01-04-2025 14:10-0400 Diastolic blood pressure 68 mm[Hg] DEFINED NOT [facility] 01-04-2025 14:10-0400 Systolic blood pressure 112 mm[Hg] DEFINED NOT [facility] 12-23-2024 13:00-0400 Body height 160.02 cm DEFINED NOT [facility] 12-23-2024 12:57-0400 Body mass index (BMI) [Ratio] 27.8 kg/m2 DEFINED NOT [facility] 12-23-2024 12:57-0400 Body weight 71.32 kg DEFINED NOT [facility] 12-23-2024 12:57-0400 Diastolic blood pressure 74 mm[Hg] DEFINED NOT [facility] 12-23-2024 12:57-0400 Systolic blood pressure 118 mm[Hg] DEFINED [facility] 12-02-2024 15:37-0400 Body height 160.02 cm DEFINED NOT [facility] 12-02-2024 15:37-0400 Body mass index (BMI) [Ratio] 27.3 kg/m2 DEFINED NOT [facility] 12-02-2024 15:37-0400 Body weight 70.08 kg DEFINED [facility] 12-02-2024 15:37-0400 Diastolic blood pressure 72 mm[Hg] DEFINED NOT [facility] 12-02-2024 15:37-0400 Systolic blood pressure 118 mm[Hg] DEFINED NOT [facility] 11-06-2024 13:20-0400 Body height 160.02 cm DEFINED NOT [facility] 11-06-2024 13:19-0400 Body mass index (BMI) [Ratio] 26.5 kg/m2 DEFINED NOT [facility] 11-06-2024 13:19-0400 Body weight 68.03 kg DEFINED NOT [facility] 11-06-2024 13:19-0400 Diastolic blood pressure 73 mm[Hg] DEFINED NOT [facility] 11-06-2024 13:19-0400 Systolic blood pressure 120 mm[Hg] DEFINED NOT [facility] 10-08-2024 14:53-0400 Body mass index (BMI) [Ratio] 25.9 kg/m2 DEFINED NOT [facility] 10-08-2024 14:53-0400 Body weight 66.39 kg DEFINED NOT [facility] 10-08-2024 14:53-0400 Diastolic blood pressure 74 mm[Hg] DEFINED NOT [facility] 10-08-2024 14:53-0400 Systolic blood pressure 111 mm[Hg] DEFINED NOT [facility] 09-11-2024 10:02-0500 Body height 160.02 cm DEFINED NOT [facility] 09-11-2024 10:02-0500 Body mass index (BMI) [Ratio] 25.4 kg/m2 DEFINED NOT [facility] 09-11-2024 10:02-0500 Body weight 65.03 kg DEFINED NOT [facility] 09-11-2024 10:02-0500 Diastolic blood pressure 78 mm[Hg] DEFINED NOT [facility] 09-11-2024 10:02-0500 Systolic blood pressure 119 mm[Hg] DEFINED NOT [facility] 08-14-2024 14:17-0500 Body weight 64.01 kg DEFINED NOT [facility] 08-14-2024 14:17-0500 Diastolic blood pressure 74 mm[Hg] DEFINED NOT [facility] 08-14-2024 14:17-0500 Systolic blood pressure 126 mm[Hg] DEFINED NOT [facility] 07-29-2024 17:47-0500 Body height 152.4 cm Padmini Sosa APRN-PROBATION MANAGER Work Phone: [phone] [place] [address] 07-29-2024 17:47-0500 Body mass index (BMI) [Ratio] 23.44 kg/m2 Padmini Sosa APRN-PROBATION MANAGER Work Phone: [phone])[phone] [place] [address] 07-29-2024 17:47-0500 Body temperature 99.39 [degF] Padmini Sosa APRN-PROBATION MANAGER Work Phone: [phone])[phone] [place] [address] 07-29-2024 17:47-0500 Body weight 54.43 kg Padmini Sosa INDUSTRIAL PHARMACIST-PROBATION MANAGER Work Phone: 7(762)[phone] [place] [address] 07-29-2024 17:47-0500 Diastolic blood pressure 71 mm[Hg] Padmini Sosa APRN-PROBATION MANAGER Work Phone: [facility] 07-29-2024 17:47-0500 Heart rate 117 /min Padmini Sosa INDUSTRIAL PHARMACIST-PROBATION MANAGER Work Phone: [facility] 07-29-2024 17:47-0500 Respiratory rate 16 /min Padmini Sosa INDUSTRIAL PHARMACIST-PROBATION MANAGER Work Phone: [facility] 07-29-2024 17:47-0500 SaO2% (BldA) [Mass fraction] 97 % Padmini Sosa INDUSTRIAL PHARMACIST-PROBATION MANAGER Work Phone: [facility] 07-29-2024 17:47-0500 Systolic blood pressure 100 mm[Hg] Padmini Sosa INDUSTRIAL PHARMACIST-PROBATION MANAGER Work Phone: [facility] 10-10-2022 17:17-0400 Blood Pressure Location [facility] 10-10-2022 17:17-0400 Body temperature 98.24 [degF] [facility] 10-10-2022 17:17-0400 Diastolic blood pressure 66 mm[Hg] [facility] 10-10-2022 17:17-0400 Heart rate 97 /min [facility] 10-10-2022 17:17-0400 SaO2% (BldA) [Mass fraction] 99 % [facility] 10-10-2022 17:17-0400 Systolic blood pressure 100 mm[Hg] [facility] 09-14-2022 12:32-0500 Diastolic blood pressure 73 mm[Hg] No Pcp Required [facility] 09-14-2022 12:32-0500 Heart rate 89 /min No Pcp Required [facility] 09-14-2022 12:32-0500 Respiratory rate 18 /min No Pcp Required [facility] 09-14-2022 12:32-0500 SaO2% (BldA) [Mass fraction] 98 % No Pcp Required [facility] 09-14-2022 12:32-0500 Systolic blood pressure 102 mm[Hg] No Pcp Required [facility] 09-14-2022 10:48-0500 Body height 152.4 cm No Pcp Required [facility] 09-14-2022 10:48-0500 Body temperature 96.98 [degF] No Pcp Required [facility] 09-14-2022 10:48-0500 Body weight 52.3 kg No Pcp Required [facility] 06-26-2022 11:29-0500 Blood Pressure Location [employer] [facility] 06-26-2022 11:29-0500 Body temperature 98.24 [degF] Monika [employer] [facility] 06-26-2022 11:29-0500 Diastolic blood pressure 74 mm[Hg] [employer] 06-26-2022 11:29-0500 Heart rate 94 /min [employer] [facility] 06-26-2022 11:29-0500 SaO2% (BldA) [Mass fraction] 99 % Monika [employer] [facility] 06-26-2022 11:29-0500 Systolic blood pressure 120 mm[Hg] Monika [facility] 05-18-2022 14:10-0500 Body height 154.94 cm Aster Ting Sterling [facility] [address] Work Phone: 05-18-2022 14:10-0500 Body mass index (BMI) [Ratio] 23.67 kg/m2 Aster A [facility] [address] Work Phone: 05-18-2022 14:10-0500 Body surface area Derived from formula 1.55 m2 Aster Ting Sterling [facility] [address] Work Phone: 05-18-2022 14:10-0500 Body weight 56.81 kg Aster A Sterling [address] Work Phone: 05-18-2022 14:10-0500 Diastolic blood pressure 62 mm[Hg] Aster A Sterling [address] Work Phone: 05-18-2022 14:10-0500 Systolic blood pressure 114 mm[Hg] Aster A Sterling [address] Work Phone: 04-13-2022 09:06-0400 Body height 154.94 cm Aster A Otoniel Work Phone: [address] Work Phone: 04-13-2022 09:06-0400 Body mass index (BMI) [Ratio] 27.03 kg/m2 Aster A Sterling Work Phone: [address] Work Phone: 04-13-2022 09:06-0400 Body surface area Derived from formula 1.64 m2 Aster A Sterling Work Phone: [address] Work Phone: 04-13-2022 09:06-0400 Body weight 64.9 kg Aster A Sterling Work Phone: [address] Work Phone: 04-13-2022 09:06-0400 Diastolic blood pressure 84 mm[Hg] Aster A Sterling Work Phone: [address] Work Phone: 04-13-2022 09:06-0400 Systolic blood pressure 122 mm[Hg] Aster A Sterling Work Phone: [address] Work Phone: 04-06-2022 09:25-0400 Body height 154.94 cm Aster A Sterling Work Phone: [place] [address] [address] Work Phone: 04-06-2022 09:25-0400 Body mass index (BMI) [Ratio] 29.33 kg/m2 Aster A Otoniel Work Phone: [place] [address] [address] Work Phone: 04-06-2022 09:25-0400 Body surface area Derived from formula 1.7 m2 Aster A Sterling Work Phone: [place] [address] [address] Work Phone: 04-06-2022 09:25-0400 Body weight 70.42 kg Aster A Sterling Work Phone: [place] [address] [address] Work Phone: 04-06-2022 09:25-0400 Diastolic blood pressure 82 mm[Hg] Aster A Otoniel Work Phone: [address] Work Phone: 04-06-2022 09:25-0400 Systolic blood pressure 130 mm[Hg] Aster A Sterling Work Phone: [address] Work Phone: 03-30-2022 08:53-0400 Body height 154.94 cm Aster A Otoniel Work Phone: [address] Work Phone: 03-30-2022 08:53-0400 Body mass index (BMI) [Ratio] 29.12 kg/m2 Aster A Sterling Work Phone: [place] [address] [address] Work Phone: 03-30-2022 08:53-0400 Body surface area Derived from formula 1.69 m2 Aster A Sterling Work Phone: [place] [address] [address] Work Phone: 03-30-2022 08:53-0400 Body weight 69.91 kg Aster A Sterling Work Phone: [place] [address] [address] Work Phone: 03-30-2022 08:53-0400 Diastolic blood pressure 70 mm[Hg] Aster A Otoniel Work Phone: [place] [address] [address] Work Phone: 03-30-2022 08:53-0400 Systolic blood pressure 108 mm[Hg] Aster A Sterling Work Phone: [place] [address] [address] Work Phone: 03-23-2022 09:13-0400 Body height 154.94 cm Aster A Sterling Work Phone: [place] [address] [address] Work Phone: 03-23-2022 09:13-0400 Body mass index (BMI) [Ratio] 28.95 kg/m2 Aster A Otoniel Work Phone: [place] [address] [address] Work Phone: 03-23-2022 09:13-0400 Body surface area Derived from formula 1.69 m2 Aster A Sterling Work Phone: [place] [address] [address] Work Phone: 03-23-2022 09:13-0400 Body weight 69.5 kg Aster A Sterling Work Phone: [place] [address] [address] Work Phone: 03-23-2022 09:13-0400 Diastolic blood pressure 70 mm[Hg] Aster A Otoniel Work Phone: [place] [address] [address] Work Phone: 03-23-2022 09:13-0400 Systolic blood pressure 100 mm[Hg] Aster A Sterling Work Phone: [place] [address] [address] Work Phone: 03-16-2022 08:18-0400 Body height 154.94 cm Aster A Sterling Work Phone: [address] Work Phone: 03-16-2022 08:18-0400 Body mass index (BMI) [Ratio] 28.39 kg/m2 Aster A Sterling Work Phone: [address] Work Phone: 03-16-2022 08:18-0400 Body surface area Derived from formula 1.67 m2 Aster A Sterling Work Phone: [address] Work Phone: 03-16-2022 08:18-0400 Body weight 68.15 kg Aster A Sterling Work Phone: [address] Work Phone: 03-16-2022 08:18-0400 Diastolic blood pressure 70 mm[Hg] Aster A Sterling Work Phone: [address] Work Phone: 03-16-2022 08:18-0400 Systolic blood pressure 104 mm[Hg] Aster A Otoniel Work Phone: [address] Work Phone: 03-09-2022 13:19-0400 Body height 154.94 cm Aster A Sterling Work Phone: [address] Work Phone: 03-09-2022 13:19-0400 Body mass index (BMI) [Ratio] 28.41 kg/m2 Aster A Sterling Work Phone: [address] Work Phone: 03-09-2022 13:19-0400 Body surface area Derived from formula 1.67 m2 Aster A Sterling Work Phone: [address] Work Phone: 03-09-2022 13:19-0400 Body weight 68.21 kg Aster A Sterling Work Phone: [address] Work Phone: 03-09-2022 13:19-0400 Diastolic blood pressure 72 mm[Hg] Aster A Otoniel Work Phone: [address] Work Phone: 03-09-2022 13:19-0400 Systolic blood pressure 112 mm[Hg] Aster A Sterling Work Phone: [address] Work Phone: 02-23-2022 08:29-0400 Body height 152.4 cm Aster A Sterling Work Phone: [address] Work Phone: 02-23-2022 08:29-0400 Body mass index (BMI) [Ratio] 29.02 kg/m2 Aster A Sterling Work Phone: [address] Work Phone: 02-23-2022 08:29-0400 Body surface area Derived from formula 1.65 m2 Aster A Otoniel Work Phone: [address] Work Phone: 02-23-2022 08:29-0400 Body weight 67.4 kg Aster A Sterling Work Phone: [address] Work Phone: 02-23-2022 08:29-0400 Diastolic blood pressure 64 mm[Hg] Aster A Otoniel Work Phone: [address] Work Phone: 02-23-2022 08:29-0400 Systolic blood pressure 112 mm[Hg] Aster A Otoniel Work Phone: [address] Work Phone: 02-09-2022 09:19-0400 Body height 152.4 cm Aster A Otoniel Work Phone: [address] Work Phone: 02-09-2022 09:19-0400 Body mass index (BMI) [Ratio] 28.55 kg/m2 Aster A Sterling Work Phone: [address] Work Phone: 02-09-2022 09:19-0400 Body surface area Derived from formula 1.63 m2 Aster A Sterling Work Phone: [address] Work Phone: 02-09-2022 09:19-0400 Body weight 66.3 kg Aster A Otoniel Work Phone: [address] Work Phone: 02-09-2022 09:19-0400 Diastolic blood pressure 64 mm[Hg] Aster A Sterling Work Phone: [address] Work Phone: 02-09-2022 09:19-0400 Systolic blood pressure 108 mm[Hg] Aster A Sterling Work Phone: [address] Work Phone: 01-26-2022 10:50-0400 Body height 152.4 cm Aster A Sterling Work Phone: [address] Work Phone: 01-26-2022 10:50-0400 Body mass index (BMI) [Ratio] 27.94 kg/m2 Aster A Otoniel Work Phone: [address] Work Phone: 01-26-2022 10:50-0400 Body surface area Derived from formula 1.62 m2 Aster A Otoniel Work Phone: [address] Work Phone: 01-26-2022 10:50-0400 Body weight 64.9 kg Aster A Sterling Work Phone: [address] Work Phone: 01-26-2022 10:50-0400 Diastolic blood pressure 64 mm[Hg] Aster A Sterling Work Phone: [address] Work Phone: 01-26-2022 10:50-0400 Systolic blood pressure 110 mm[Hg] Aster A Otoniel Work Phone: [address] Work Phone: 12-22-2021 14:24-0400 Body height 152.4 cm Aster A Sterling Work Phone: [address] Work Phone: 12-22-2021 14:24-0400 Body mass index (BMI) [Ratio] 27.68 kg/m2 Aster A Sterling Work Phone: [address] Work Phone: 12-22-2021 14:24-0400 Body surface area Derived from formula 1.61 m2 Aster A Otoniel Work Phone: [address] Work Phone: 12-22-2021 14:24-0400 Body weight 64.3 kg Aster A Sterling Work Phone: [address] Work Phone: 12-22-2021 14:24-0400 Diastolic blood pressure 70 mm[Hg] Aster A Otoniel Work Phone: [address] Work Phone: 12-22-2021 14:24-0400 Systolic blood pressure 100 mm[Hg] Aster A Sterling Work Phone: [place] [address] [address] Work Phone: 11-24-2021 14:49-0400 Body height 152.4 cm Aster A Otoniel Work Phone: [address] Work Phone: 11-24-2021 14:49-0400 Body mass index (BMI) [Ratio] 26.91 kg/m2 Aster A Otoniel Work Phone: [address] Work Phone: 11-24-2021 14:49-0400 Body surface area Derived from formula 1.59 m2 Aster A Sterling Work Phone: [address] Work Phone: 11-24-2021 14:49-0400 Body weight 62.5 kg Aster A Sterling Work Phone: [address] Work Phone: 11-24-2021 14:49-0400 Diastolic blood pressure 60 mm[Hg] Aster A Sterling Work Phone: [address] Work Phone: 11-24-2021 14:49-0400 Systolic blood pressure 112 mm[Hg] Aster A Sterling Work Phone: [place] [address] [address] Work Phone: 10-27-2021 15:58-0400 Body height 152.4 cm Aster A Otoniel Work Phone: [address] Work Phone: 10-27-2021 15:58-0400 Body mass index (BMI) [Ratio] 26.35 kg/m2 Aster A Otoniel Work Phone: [place] [address] [address] Work Phone: 10-27-2021 15:58-0400 Body surface area Derived from formula 1.58 m2 Aster A Sterling Work Phone: [address] Work Phone: 10-27-2021 15:58-0400 Body weight 61.2 kg Aster A Sterling Work Phone: [address] Work Phone: 10-27-2021 15:58-0400 Diastolic blood pressure 62 mm[Hg] Aster A Otoniel Work Phone: [address] Work Phone: 10-27-2021 15:58-0400 Systolic blood pressure 102 mm[Hg] Aster A Otoniel Work Phone: [address] Work Phone: 09-22-2021 10:26-0400 Body height 152.4 cm Aster A Sterling Work Phone: [address] Work Phone: 09-22-2021 10:26-0400 Body mass index (BMI) [Ratio] 25.88 kg/m2 Aster A Sterling Work Phone: [address] Work Phone: 09-22-2021 10:26-0400 Body surface area Derived from formula 1.57 m2 Aster A Otoniel Work Phone: [address] Work Phone: 09-22-2021 10:26-0400 Body weight 60.1 kg Aster A Otoniel Work Phone: [address] Work Phone: 09-22-2021 10:26-0400 Diastolic blood pressure 68 mm[Hg] Aster A Otoniel Work Phone: [address] Work Phone: 09-22-2021 10:26-0400 Systolic blood pressure 100 mm[Hg] Aster A Sterling Work Phone: [address] Work Phone: 08-25-2021 11:35-0500 Body height 152.4 cm Aster A Otoniel Work Phone: [address] Work Phone: 08-25-2021 11:35-0500 Body mass index (BMI) [Ratio] 26.52 kg/m2 Aster A Otoniel Work Phone: [address] Work Phone: 08-25-2021 11:35-0500 Body surface area Derived from formula 1.58 m2 Aster A Otoniel Work Phone: [address] Work Phone: 08-25-2021 11:35-0500 Body temperature 97.8 [degF] Aster A Otoniel Work Phone: [address] Work Phone: 08-25-2021 11:35-0500 Body weight 61.6 kg Aster A Sterling Work Phone: [address] Work Phone: 08-25-2021 11:35-0500 Diastolic blood pressure 60 mm[Hg] Aster A Sterling Work Phone: [address] Work Phone: 08-25-2021 11:35-0500 Systolic blood pressure 110 mm[Hg] Aster A Sterling Work Phone: [address] Work Phone: 04-24-2021 15:18-0400 Body height 152.4 cm Brea Sherman MD Work Phone: [facility] 04-24-2021 15:18-0400 Body mass index (BMI) [Ratio] 25 kg/m2 Brea Sherman MD Work Phone: [facility] 04-24-2021 15:18-0400 Body temperature 98.91 [degF] Brea Sherman MD Work Phone: [facility] 04-24-2021 15:18-0400 Body weight 58.06 kg Brea Sherman MD Work Phone: [facility] 04-24-2021 15:18-0400 Diastolic blood pressure 73 mm[Hg] Brea Sherman MD Work Phone: [facility] 04-24-2021 15:18-0400 Heart rate 78 /min Brea Sherman MD Work Phone: [facility] 04-24-2021 15:18-0400 Respiratory rate 16 /min Brea Sherman MD Work Phone: [facility] 04-24-2021 15:18-0400 SaO2% (BldA) [Mass fraction] 98 % Brea Sherman MD Work Phone: [facility] 04-24-2021 15:18-0400 Systolic blood pressure 112 mm[Hg] Brea Sherman MD Work Phone: [facility] Encounters Encounter Date Encounter Type Care Provider Facility Start: 03-17-2025 End: 03-17-2025 ambulatory Yao Brambila Facility:[facility] Start: 03-17-2025 End: 03-17-2025 Patient encounter procedure Yao Brambila [facility] Work Phone: Start: 03-10-2025 End: 03-10-2025 Patient encounter procedure Yao RODRIGES -[facility] Work Phone: Start: 03-10-2025 End: 03-10-2025 ambulatory DEFINED NOT -[facility] Start: 03-03-2025 End: 03-03-2025 Patient encounter procedure Andre WATTS -[facility] Work Phone: Start: 03-03-2025 End: 03-03-2025 ambulatory DEFINED NOT -[facility] Start: 02-26-2025 End: 02-26-2025 Patient encounter procedure Krystyna Ramos CN -[facility] Work Phone: Start: 02-26-2025 End: 02-26-2025 ambulatory DEFINED NOT -[facility] Start: 02-26-2025 End: 02-26-2025 ambulatory Krystyna Ramos Facility:[facility] Start: 02-15-2025 End: 02-15-[address] Thelma Taveras MD -[facility] Work Phone: Start: 02-15-2025 End: 02-15-2025 ambulatory DEFINED NOT -[facility] Start: 02-01-2025 End: 02-01-2025 Patient encounter procedure Yao Brambila [facility] -[facility] Work Phone: Start: 02-01-2025 End: 02-01-2025 ambulatory DEFINED NOT -[facility] Start: 01-29-2025 End: 01-29-[address] [facility] Start: 01-25-2025 End: 01-25-2025 Patient encounter procedure Yao Brambila [facility] Work Phone: Start: 01-25-2025 End: 01-25-2025 ambulatory DEFINED NOT -[facility] Start: 01-21-2025 End: 01-21-2025 ambulatory YAO Evangelista KOSTA [facility] Start: 01-04-2025 End: 01-04-2025 Patient encounter procedure Andre WATTS -[facility] Work Phone: Start: 01-04-2025 End: 01-04-2025 ambulatory DEFINED NOT -[facility] Start: 12-23-2024 End: 12-23-[address] Thelma Taveras MD -[facility] Work Phone: Start: 12-23-2024 End: 12-23-[address] 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 Work Phone: Start: 11-25-2024 End: 11-25-2024 ambulatory DEFINED NOT [facility] Work Phone: Start: 11-25-2024 End: 11-25-[address] Gem Ross DO -[facility] Start: 11-25-2024 End: 11-25-2024 ambulatory Gem Ross Facility:[facility] Start: 11-17-2024 End: 11-17-[address] [facility] Start: 11-06-2024 End: 11-06-2024 Patient encounter procedure Yao Brambila CNM -[facility] Work Phone: Start: 11-06-2024 End: 11-06-2024 ambulatory DEFINED NOT Facility:[facility] Start: 10-20-2024 End: 10-20-2024 ambulatory YAO BRAMBILA [facility] Start: 10-08-2024 End: 10-08-[address] Gem Ross DO -[facility] Work Phone: Start: 10-08-2024 End: 10-08-2024 ambulatory Gem Ross Facility:[facility] Start: 09-11-2024 End: 09-11-2024 Patient encounter procedure Yao Brambila CNM -[facility] Work Phone: Start: 09-11-2024 End: 09-11-2024 ambulatory DEFINED NOT [facility] Work Phone: Start: 09-11-2024 End: 09-11-2024 ambulatory DEFINED NOT Facility:[facility] Start: 08-27-2024 End: 08-27-2024 Patient encounter procedure Yao Brambila CNM -Lab, [facility] Start: 08-27-2024 End: 08-27-2024 ambulatory DEFINED NOT Facility:[facility] Start: 08-14-2024 End: 08-14-[address] Thelma Taveras MD -Laboratory, Specimen Work Phone: Start: 08-14-2024 End: 08-14-[address] Thelma Taveras MD -[facility] Work Phone: Start: 08-14-2024 End: 08-14-2024 ambulatory Thelma Taveras Facility:[facility] Start: 08-14-2024 End: 08-14-2024 ambulatory DEFINED NOT Facility:[facility] Start: 07-31-2024 Non-patient / Non-visit Olive Day RN -[facility] Work Phone: Start: 07-31-2024 ambulatory Olive Day Facility :[facility] Start: 07-29-2024 End: 07-29-2024 Patient encounter procedure Padmini Sosa APRN-PROBATION MANAGER Work Phone: [facility] Comment on above: Influenza A (Primary Dx); Viral URI with cough Start: 07-29-2024 End: 07-29-2024 ambulatory [facility] Start: 05-01-2023 End: 05-01-2023 Emergency department patient visit BREA [facility] Start: 03-28-2023 End: 03-28-2023 Emergency department patient visit BREA SHERMAN [facility] Start: 11-16-2022 ambulatory MD EV MCCARTNEY Facility:[id number] Start: 10-10-2022 End: 10-11-2022 ambulatory Rad Denney Facility:[facility] Start: 10-10-2022 End: 10-10-2022 Patient encounter procedure Rad Panchito Denney [facility] Start: 09-14-2022 End: 09-14-2022 Emergency department patient visit Scottie Umanzor [facility] 14 Start: 06-26-2022 End: 06-27-2022 ambulatory Monika X Orzech Facility:[facility] Start: 06-26-2022 End: 06-26-2022 Patient encounter procedure Monika X Mansoor [facility] Start: 05-18-2022 Patient encounter procedure Aster Frank [employer] Work Phone: Start: 05-18-[address] Aster Frank Fa cility:[id number] Start: 05-08-2022 Rx Renewal Aster Frank Work Phone: [facility] Work Phone: Start: 04-13-[address] Aster Frank Fa cility:[id number] Start: 04-13-2022 Patient encounter procedure Aster Frank Work Phone: [facility] [employer] Work Phone: Start: 04-08-2022 End: 04-10-2022 Evaluation and management of inpatient Dr. Aster Frank Facility:[id number] Start: 04-06-[address] Aster Frank Fa cility:[id number] Start: 04-06-2022 Office outpatient visit 10 minutes Aster Frank Work Phone: [facility] Work Phone: Start: 04-03-2022 End: 04-03-[address] Aster Frank Facility:[id number] Start: 03-30-[address] Aster Frank Fa cility:[id number] Start: 03-26-2022 Chart Update Aster A Sterling Work Phone: [place] [address] [address] Work Phone: Start: 03-25-2022 Chart Update Aster A Sterling Work Phone: [address] Work Phone: Start: 03-23-2022 Office outpatient visit 10 minutes Aster A Otoniel Work Phone: [address] Work Phone: Start: 03-23-[address] Aster Frank Fa cility:[id number] Start: 03-16-2022 Office outpatient visit 10 minutes Aster A Sterling Work Phone: [address] Work Phone: Start: 03-16-[address] Aster Frank Fa cility:[id number] Start: 03-09-[address] Aster Frank Fa cility:[id number] Start: 03-09-2022 Office outpatient visit 10 minutes Aster A Otoniel Work Phone: [address] Work Phone: Start: 02-23-2022 Office outpatient visit 15 minutes Aster A Otoniel Work Phone: [address] Work Phone: Start: 02-23-[address] Aster Frank Fa cility:[id number] Start: 02-09-2022 Office outpatient visit 10 minutes Aster A Otoniel Work Phone: [place] [address] [address] Work Phone: Start: 02-09-[address] Aster Frank Fa cility:[id number] Start: 01-30-2022 Chart Update Aster A Sterling Work Phone: [address] Work Phone: Start: 01-26-2022 ambulatory MD EV MCCARTNEY Facility:[id number] Start: 01-15-2022 End: 01-15-[address] Aster Frank Facility:[id number] Start: 12-22-2021 Office outpatient visit 10 minutes Aster A Sterling Work Phone: [place] [address] [address] Work Phone: Start: 12-22-[address] Aster Frank Fa cility:[id number] Start: 11-27-2021 Chart Update Aster A Otoniel Work Phone: [place] [address] [address] Work Phone: Start: 11-24-2021 Office outpatient visit 10 minutes Aster A Sterling Work Phone: [place] [address] [address] Work Phone: Start: 11-24-[address] Aster Frank Fa cility:[id number] Start: 10-27-2021 Office outpatient visit 10 minutes Aster A Sterling Work Phone: [place] [address] [address] Work Phone: Start: 10-03-2021 Chart Update Aster A Sterling Work Phone: [place] [address] [address] Work Phone: Start: 10-02-2021 AUDIT Aster A Sterling Work Phone: [place] [address] [address] Work Phone: Start: 09-24-2021 Chart Update Aster A Sterling Work Phone: [place] [address] [address] Work Phone: Start: 09-22-[address] Aster Frank Fa cility:[id number] Start: 09-22-2021 Office outpatient visit 15 minutes Aster A Sterling Work Phone: [place] [address] [address] Work Phone: Start: 09-04-2021 AUDIT Aster A Otoniel Work Phone: [facility] [place] [address] [address] Work Phone: Start: 08-30-2021 AUDIT Aster A Otoniel Work Phone: [place] [address] [address] Work Phone: Start: 08-25-2021 Office outpatient ne w 30 minutes Aster A Sterling Work Phone: [facility] [place] [address] [address] Work Phone: Start: 05-08-2021 Orders Only Brea Sherman MD Work Phone: [facility] Comment on above: Lymphadenopathy, ant erior cervical (Primary Dx) Start: 05-03-2021 End: 05-04-2021 ambulatory [facility] Start: 04-25-2021 Orders Only Brea Sherman MD Work Phone: [facility] Comment on above: Lymphadenopathy, ant erior cervical (Primary Dx) Start: 04-24-2021 End: 04-28-2021 ambulatory [facility] Start: 04-24-2021 End: 04-24-2021 Office outpatient new 30 minutes Brea Sherman MD Work Phone: [facility] Comment on above: Lymphadenopathy, ant erior cervical (Primary Dx) Start: 01-30-2017 End: 01-31-2017 Ambulatory Kannan Briscoe Facility:[facility] Procedures Date Procedure Procedure Detail Performing Clinician Start: 02-26-2025 Beta-hemolytic Strep tococcus culture DEFINED NOT Start: 12-23-2024 Serologic test for syphilis DEFINED NOT Start: 11-25-2024 Parvovirus B19 IgG level DEFINED NOT Comment on above: Negative <0.9 Equivo kamar 0.9 - 1.1 Positive >1.1 Start: 09-11-2024 Procedure DEFINED NO T Start: 08-27-2024 Hepatitis B surface antigen measurement DEFINED NOT Start: 08-27-2024 Hepatitis C antibody measurement DEFINED NOT Comment on above: Non Reactive: < 0.8 Equivocal: >/= 0.8 to < 1.0 Reactive: >/= 1.0The CDC requires that a reactive/equivocal HCV antibody result be sent out for confirmation. HCV Quant by PCR testing. Start: 08-27-2024 Measurement of renal function DEFINED NOT Comment on above: GFR Calc Start: 08-27-2024 Rubella IgG measurement DEFINED NOT Comment on above: Antibody Results Int erpretation of Immune Status Non Reactive Presumed Non-Immune Equivocal Equivocal Reactive Presumed Immune Start: 08-14-2024 Liquid based cervica l cytology screening DEFINED NOT Comment on above: NEGATIVE FOR INTRAEP ITHELIAL LESION OR MALIGNANCY. This liquid based Th inPrep(R) pap test was screened withthe use of an image guided system. The HPV DNA reflex c riteria were not met with this specimenresult therefore, no HPV testing was performed.Performed at: - [facility] [id number] [id number] Director: Dusty Luong MD, Phone: [phone] at: - [address] [id number] Director: Bess Blood MD, Phone: [phone] Start: 08-14-2024 Urine culture DEFINED N OT Start: 07-29-2024 POCT SARS-COV-2/FLU/ RSV PCR SYMPTOMATIC Padmini Sosa APRN-PROBATION MANAGER Work Phone: Start: 09-14-2022 End: 09-14-2022 EKG impression Scottie Umanzor Start: 04-08-[address] Kassie Frank Comment on above: Performed By: #### T +S #### [address] [address] Start: 09-22-[address] Kassie Frank Comment on above: Performed By: #### C OINP #### [address] [address] Start: 09-22-2021 Microscopic observat ion [Identifier] in Cervix by Cyto stain Padmini Sosa APRN-PROBATION MANAGER Work Phone: Start: 04-24-2021 Adult depression scr eening assessment Brea Sherman MD Work Phone: No history of surgery Aster Frank Work Phone: Plan of Treatment Date Care Activity Detail Author Start: 2047 Zoster Vaccines (1 of 2) Zoste r Vaccines (1 of 2) [facility] Start: 01-27-2032 DTaP/Tdap/Td Vaccine s (2 - Td or Tdap) DTaP/Tdap/Td Vaccines (2 - Td or Tdap) [facility] Start: 12-23-2024 Measurement of gluco se 2 hours after glucose challenge for glucose tolerance test [facility] Start: 12-23-2024 Serologic test for syphilis [facility] Start: 12-23-2024 [facility] Start: 09-22-2024 Screening for malign ant neoplasm of cervix [facility] Start: 03-08-2024 COVID-19 Vaccine () COVID-19 Vaccine () [facility] Start: 03-08-2024 Influenza vaccination Influenza Vacc ine (#1) [facility] Start: 11-16-2022 Patient encounter procedure [facility] Start: 05-18-2022 PPV, Provider: Ev Mccartney, Status: Pen, Time: 2:45 PM PPV, Provider: Ev Mccartney, Status: Pen, Time: 2:45 PM [facility] Work Phone: Start: 04-24-2022 Depression screening using PHQ-9 (Patient Health Questionnaire 9) score Depression Screening (PHQ-2/9) [facility] Start: 04-13-2022 EPVOB, Provider: Aster Frank, Status: Pen, Time: 9:00 AM EPVOB, Provider: Aster Frank, Status: Pen, Time: 9:00 AM [employer] Work Phone: Start: 04-09-2022 EPVOB, Provider: Aster Frank, Status: Pen, Time: 8:45 AM EPVOB, Provider: Aster Frank, Status: Pen, Time: 8:45 AM [employer] Work Phone: Start: 04-06-2022 EPVOB, Provider: Aster Frank, Status: Pen, Time: 9:15 AM EPVOB, Provider: Aster Frank, Status: Pen, Time: 9:15 AM [employer] Work Phone: Start: 03-30-2022 EPVOB, Provider: Aster Frank, Status: Pen, Time: 9:15 AM EPVOB, Provider: Aster Frank, Status: Pen, Time: 9:15 AM [employer] Work Phone: Start: 03-23-2022 EPVOB, Provider: Aster Frank, Status: Pen, Time: 9:15 AM EPVOB, Provider: Aster Frank, Status: Pen, Time: 9:15 AM [employer] Work Phone: Start: 03-16-2022 EPVOB, Provider: Asetr Frank, Status: Pen, Time: 9:15 AM EPVOB, Provider: Aster Frank, Status: Pen, Time: 9:15 AM [employer] Work Phone: Start: 03-09-2022 EPVOB, Provider: Aster Frank, Status: Pen, Time: 8:30 AM EPVOB, Provider: Aster Frank, Status: Pen, Time: 8:30 AM [employer] Work Phone: Start: 02-23-2022 EPVOB, Provider: Maria Luisa Leung, Status: Pen, Time: 8:30 AM EPVOB, Provider: Maria Luisa Leung, Status: Pen, Time: 8:30 AM [employer] Work Phone: Start: 02-09-2022 EPVOB, Provider: Aster Frank, Status: Pen, Time: 9:15 AM EPVOB, Provider: Aster Frank, Status: Pen, Time: 9:15 AM [employer] Work Phone: Start: 01-19-2022 EPVOB, Provider: Aster Frank, Status: Pen, Time: 10:45 AM EPVOB, Provider: Aster Frank, Status: Pen, Time: 10:45 AM [employer] Work Phone: Start: 12-22-2021 EPVOB, Provider: Aster Frank, Status: Pen, Time: 2:15 PM EPVOB, Provider: Aster Frank, Status: Pen, Time: 2:15 PM [employer] Work Phone: Start: 11-24-2021 EPVOB, Provider: Aster Frank, Status: Pen, Time: 2:45 PM EPVOB, Provider: Aster Frank, Status: Pen, Time: 2:45 PM [employer] Work Phone: Start: 10-27-2021 EPVOB, Provider: Aster Frank, Status: Pen, Time: 3:45 PM EPVOB, Provider: Aster Frank, Status: Pen, Time: 3:45 PM [employer] Work Phone: Start: 09-22-2021 EPVOB, Provider: Aster Frank, Status: Pen, Time: 10:45 AM EPVOB, Provider: Aster Frank, Status: Pen, Time: 10:45 AM [employer] Work Phone: Start: 08-08-2021 End: 05-08-2022 Ultrasonography of head and neck US Soft Tissue Neck Imaging Routine Lymphadenopathy, anterior cervical Expected: 08/08/2021, Expires: 05/08/2022 [employer] Work Phone: Comment on above: Expected: 08/08/2021 , Expires: 05/08/2022 Start: 05-09-2021 End: 10-19-2022 Basic metabolic 2000 panel - Serum or Plasma Basic Metabolic Panel Lab Routine Lymphadenopathy, anterior cervical Expected: 05/09/2021, Expires: 04/25/2022 [facility] Work Phone: Comment on above: Expected: 05/09/2021 , Expires: 04/25/2022 Start: 03-08-2021 Influenza vaccination Sequenti al Influenza Vaccine (#1) [facility] Start: 2018 Screening for malign ant neoplasm of cervix HPV/Cotest [facility] Start: 01-24-2016 Hepatitis B Vaccines (1 of 3 - 19+ 3-dose series) Hepatitis B Vaccines (1 of 3 - 19+ 3-dose series) [facility] Start: 2015 Hepatitis C screening Hepatitis C Sc reening [facility] Start: 2010 Varicella vaccination Varicell a Vaccines (1 of 2 - 13+ 2-dose series) [facility] Start: 2009 COVID-19 Vaccine (1) COVID-19 Vaccin e (1) [facility] Start: 01-24-2008 Vaccination for valdo n papillomavirus HPV Vaccines (1 - 2-dose series) [facility] Start: 2002 COVID-19 Vaccine (1) COVID-19 Vaccin e (1) [facility] Start: 01-24-2000 History and physical examination, annual for health maintenance Wellness Visit [facility] Start: 1998 MMR Vaccines (1 of 1 - Standard series) MMR Vaccines (1 of 1 - Standard series) [facility] Start: 1997 Lipid panel Lipid Panel [facility] Start: 1997 Screening for Chlamy mariposa trachomatis Chlamydia Screening [facility] Start: 1997 Screening for malign ant neoplasm of cervix Pap Smear [facility] Start: 1997 Tetanus vaccination Tetanus: Every 1 0yrs [facility] Start: 1997 Yearly Adult Physical Yearly Adult P hysical [facility] CBC W Auto Different ial panel - Blood [facility] End: 05-08-2022 Complete blood count with white cell differential, manual CBC and Differential Lab Routine Lymphadenopathy, anterior cervical 1 Occurrences starting 05/08/2021 until 05/08/2022 [facility] Comment on above: 1 Occurrences starti ng 05/08/2021 until 05/08/2022 End: 05-08-2022 Comprehensive metabolic 2000 panel - Serum or Plasma Comprehensive Metabolic Panel Lab Routine Lymphadenopathy, anterior cervical 1 Occurrences starting 05/08/2021 until 05/08/2022 [employer] Work Phone: Comment on above: 1 Occurrences starti ng 05/08/2021 until 05/08/2022 Comprehensive metabo lic 2000 panel - Serum or Plasma [facility] Measurement of gluco se 2 hours after glucose challenge for glucose tolerance test [facility] Parvovirus B19 IgG A b [Units/volume] in Serum by Immunoassay [facility] Parvovirus B19 IgM A b [Units/volume] in Serum by Immunoassay [facility] Procedure [facility] Serologic test for syphilis [facility] Streptococcus agalac tiae [Presence] in Unspecified specimen by Organism specific culture [facility] US Gallbladder [facility] Immunizations Immunization Date Immunization Notes Care Provider Fa cility 01-26-2022 tetanus toxoid, redu tevin diphtheria toxoid, and acellular pertussis vaccine, adsorbed [facility] 06-05-2021 SARS-CoV-2 (COVID-19 ) mRNA-1273 vaccine [facility] 05-08-2021 SARS-CoV-2 (COVID-19 ) mRNA-1273 vaccine [facility] Payers Date Payer Category Payer Medicaid [id number] 2024 Self-pay 2024 Private Health Insurance GENERIC COMMERCIAL [id number] 2024 Unknown [id number] 2022 Unknown [id number] 2020 Private Health Insurance [id number] 2020 Private Health Insurance [employer]IS [employer]ER HMO/NTWK/OACCESS/OA+/POS [id number] 2020-Present [phone] [address] [place] [address] [id number]. [id number] 2017 Unknown 1997 Unknown [id number] 2.16.840.1.958543.3.579.2. 903 1997 Unknown [id number] 2.16.840.1.994345.3.579.2. 1997 Unknown [id number] 2.16.840.1.419068.3.579.2. 90 1997 Unknown [id number] 2.16.840.1.311645.3.579.2. 1068 1997 Unknown [id number] 2.16.840.1.638636.3.579.2. 1068 1997 Unknown [id number] 2.16.840.1.064414.3.579.2. 1068 1997 Unknown [id number] 2.16.840.1.984690.3.579.2. 1068 1997 Unknown [id number] 2.16.840.1.860188.3.579.2. 1068 1997 Unknown [id number] 2.16.840.1.030461.3.579.2. 1068 1997 Unknown [id number] 2.16.840.1.402860.3.579.2. 727 1997 Unknown [id number] 2.16.840.1.941854.3.579.2. 727 1997 Unknown [id number] 2.16840.1.026527.3.579.2. 1997 Unknown [id number] 2.16.840.1.843629.3.579.2. 1997 Unknown [id number] 2.16840.1.901167.3.579.2. 1997 Unknown [id number] 2.16840.1.430223.3.579.2. 1997 Unknown [id number] 2.840.1.838890.3.579.2. 1997 Unknown [id number] 2.840.1.885809.3.579.2. 1997 Unknown [id number] 2.840.1.698234.3.579.2. 1997 Unknown [id number] 2.840.1.335826.3.579.2. 1997 Unknown [id number] 2.840.1.090397.3.579.2. 1997 Unknown [id number] 2.840.1.529286.3.579.2. 1997 Unknown [id number] 2.840.1.176945.3.579.2. 1997 Unknown [id number] 2.840.1.849286.3.579.2. 1997 Unknown [id number] 2.16840.1.788867.3.579.2. 1997 Unknown [id number] 2.16840.1.152055.3.579.2. 1997 Unknown [id number] 2.16840.1.702499.3.579.2. 902 1997 Unknown [id number] 2.840.1.066359.3.579.2. 902 1997 Unknown [id number] 2.16.840.1.973271.3.579.2. 1243 1997 Unknown [id number] 2.16.840.1.235337.3.579.2. 479 1997 Unknown [id number] 2.840.1.498162.3.579.2. 479 1997 Unknown [id number] 2.840.1.531493.3.579.2. 479 1997 Unknown [id number] 2.840.1.438038.3.579.2. 479 Unknown [id number] 2.840.1.783561.3.579.2. 462 Unknown [id number] 2.840.1.422923.3.579.2. 462 Unknown [id number] .840.1.170037.3.579.2. 462 Unknown [id number] .840.1.138853.3.579.2. 462 Unknown [id number] 840.1.265795.3.579.2. 462 Unknown [id number] .840.1.237405.3.579.2. 462 Unknown [id number] 840.1.013342.3.579.2. 462 Unknown [id number] .840.1.673260.3.579.2. 462 Unknown [id number] .840.1.648458.3.579.2. 462 Unknown [id number] 2.840.1.997004.3.579.2. 462 Unknown [id number] .840.1.491052.3.579.2. 462 Unknown [id number] 2.840.1.313606.3.579.2. 462 Unknown [id number] 2.16.840.1.519467.3.579.2. 462 Unknown [id number] 2.16.840.1.564546.3.579.2. 462 Unknown [id number] 2.16.840.1.414968.3.579.2. 462 Unknown [id number] 2.16.840.1.477345.3.579.2. 462 Unknown [id number] 2.16.840.1.194798.3.579.2. 462 Unknown [id number] 2.16.840.1.846802.3.579.2. 462 Unknown [id number] 2.16.840.1.837702.3.579.2. 462 Unknown [id number] 2.16.840.1.329074.3.579.2. 462 Unknown [id number] 2.16.840.1.739114.3.579.2. 462 Unknown [id number] 2.16.840.1.874247.3.579.2. 462 Social History Date Type Detail Facility Start: 04-24-2021 End: 07-31-2024 Tobacco smoking status NHIS Never smoked tobacco [facility] Start: 04-24-2021 Tobacco use and exposure Smokeless tobacco non-user [facility] Start: 04-24-2021 Alcohol intake Current drinke r of alcohol (finding) [facility] Start: 04-24-2021 History SDOH Alcohol Comment Socially [facility] Start: 1995 Sex Assigned At Not on file O [facility] Start: 07-19-2024 End: 07-29-2024 Exposure to SARS-CoV-2 (event) Not sure [facility] Non-smoker Non-smoker [facility] [address] Work Phone: Tobacco smoking status Never [facility] Sex Assigned At Female [facility] Tobacco smoking consumption unknown [facility] Start: 09-22-2024 Sex Female (finding) [facility] Start: 1995 Sex Assigned At Female [facility] Functional Status Date Assessment Result Facility 10-10-2022 Functional Status N/A [facility] 06-26-2022 Functional Status N/A [facility] Clinical Notes 04-24-2021 to 03-17-2025 Note Date & Type Note Facility 03-17-[address] [facility] 03-10-[address] [facility] 03-10-2025 Progress note Note Date/Time March 10, 2025 2:35pm [facility] [address], [address] [place] [address] OFFICE VISIT Date of Service: 03/10/25 MR#: [id number] Acct: [id number] Name: NISSA CRAIN Rep #: [id number] : 1995 Provider: MARIKA Brambila Age/Sex: 30/F [place] [facility] Status: Signed Intake Vital Signs 02/01/25 14:55 03/03/25 14:51 03/10/25 14:23 03/10/25 14:27 Height 5 ft 3 in 5 ft 3 in 5 ft 3 in 5 ft 3 in Weight: 167 lb 1 oz BMI 29.5 BP 129/85 H Intake Visit Reasons: 39wk ob 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 Is patient in pain?: No Allergies No Known Allergies Allergy (Verified 03/10/25 14:22) Medications ?Medication ?Instructions ?Recorded ?Confirmed ?Type docosahexaenoic acid 200 mg mg PO 07/31/24 03/10/25 Hi story capsule ( DHA) ondansetron HCl 4 mg tablet 4 mg PO Q4H #60 tabs 01/0103/10/25 Rx Last Menstrual Period: 06/10/24 Zika: Zika virus screening: Negative : No PFSH PFSH Family History Grandfather Stomach cancer Grandmother Breast cancer Social History adopted: No household members: spouse, children and other details: Pt's youger brother number of children: 1 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 current occupational exposures/hazards: No pets and animals: Yes pets and animals: dog(s) history of recent travel: No sexually active: Yes Smoking Status: Never smoker alcohol intake: current alcohol intake frequency: holidays/special occasions only details: Not while substance use type: does not use well-balanced diet: daily or most days caffeine: Yes Type: carbonated beverages eating out: 1-3 times/week during the past year weight has: remained stable what type of physical activity do you participate in: none antoni/faith: None seatbelt use: always do you feel safe at home: Yes additional social history: : Martin Williamson Us History 2 Elective abortions Hx Para 1 Spontaneous abortions 0 Hx # Term Pregnancies 1 Ectopic pregnancies Hx # Pregnancies Multiple births # of living children 1 Past Pregnancies Del. Date Name GA/Weeks Outcome Route Bth Weight Gen Labor Lgth Anesthesia Del Locatn Provider FOB 04/08/22 Kia 37 live - full term 6lbs 9oz Male epidural [facility] Delivery Date: 04/08/22 Last Updated by: Olive Day RN Induced for high blood pressure HPI 39wk ob Details: NISSA CRAIN is a 30 year old who presents for routine OB visit. OB Visit PERLA Calculator Estimated Delivery Date Method Current WG Current Estimate 03/17/25 LMP (Certain) 39w 0d Other Estimates 03/18/25 Ultrasound #1 38w 6d Expected Delivery Route/Plan Labor Preferences- CB/BF classes: no labor support person: Markos labor intervention preferences: [] pain management options preferred: epidural cut cord/dad catch: cord : yes PP control planned: discussed discussed possible routes of delivery and associated risks: [] special requests: [] Specific Issue/Plans Covid status: [] Flu vaccine: [] Tdap vaccine: declines Rhogam: na LARC form signed: yes Problem list reviewed and updated with the most current plan of care details and appropriate orders placed. Relevant counseling for the gestational age provided. Continue routine care and follow up unless otherwise noted in visit notes/problem list details Initial Weight: Not Recorded Date -?-?-?-?-?-?-?-?-?--?-?-?- EGA Weight BP Urine Prot -?-?-?-?-?-?-?-?-?-?-?-?- Glucose FHR FuHt Pres Dilation -?-?-?-?-?-?-?-?-?-?-?-?- Effaced St Visit Note 08/14/24 -?-?-?-?-?-?-?-?-?-?-?-?- 9w 2d 141 lb 2 oz 126/74 -?-?-?-?-?-?-?-?-?-?-?-?- 179 -?-?-?-?-?-?-?-?-?-?-?-?- SM- CRL 9w1d con s with lmp 09/11/24 -?-?-?-?-?-?-?-?-?-?-?-?- 13w 2d 143 lb 6 oz 119/78 -?-?-?-?-?-?--?-?-?-?-?-?- 159 -?-?-?-?-?-?-?-?-?-?-?-?- KW- no vb/crampi ng. US ordered. encouraged to take PNV at night KW- no vb/cramping. US order ed. encouraged to take PNV at night. NIPT today 10/08/24 -?-?-?-?-?-?-?-?-?-?-?-?- 17w 1d 146 lb 6 oz 111/74 Nega tive -?-?-?-?-?-?-?-?-?-?-?-?- Negative 153 -?-?-?-?-?-?-?-?-?-?-?-?- JV- still having nausea. estefania refilled. anatomy scan scheduled 10/2011/06/24 -?-?-?-?-?-?-?-?-?-?-?-?- 21w 2d 150 lb 120/73 Negative -?-?-?-?-?-?-?-?-?-?-?-?- Negative 155 -?-?-?-?-?-?-?-?-?-?-?-?- KW- no vb/lof/ct x. good fm reviewed US. doing well. 12/02/24 -?-?-?-?-?-?-?-?--?-?-?-?- 25w 0d 154 lb 8 oz 118/72 Nega tive -?-?-?-?-?-?-?-?-?-?-?-?- Negative 152 -?-?-?-?-?-?-?-?-?-?-?-?- MH-NO VB, LOF. G ood FM. Having off and RUQ pain. NO rash or itching. GB US and labs 12/23/24 -?-?-?-?-?-?-?-?-?-?-?-?- 28w 0d 157 lb 4 oz 118/74 Nega tive -?-?-?-?-?-?-?-?-?-?-?-?- Negative 145 28 -?-?-?-?-?-?-?-?-?-?-?-?- SM- no vb lof go odf m no reugalr ctx 01/04/25 -?-?-?-?-?-?-?-?-?-?-?-?- 29w 5d 160 lb 8 oz 112/68 Nega tive -?-?-?-?-?-?-?-?-?-?-?-?- Negative 156 30 -?-?-?-?-?-?-?-?-?-?-?-?- -No VB, LOF. G ood FM. Has not been taking PNV. Mild anemia-take gummy PNV at night and Fe supp with OJ Qam. 01/25/25 -?-?-?-?-?-?-?-?-?-?-?-?- 32w 5d 161 lb 8 oz 123/78 Nega tive -?-?-?-?-?-?-?-?-?-?-?-?- Negative 140 32 -?-?-?-?-?-?-?-?-?-?-?-?- KW- no vb/lof/ct x. good fm. US reviewed. 02/01/25 -?-?-?-?-?-?-?-?-?-?-?-?- 33w 5d 164 lb 2 oz 121/85 Nega tive -?-?--?-?-?-?-?-?-?-?-?-?- Negative 135 34 -?-?-?-?-?-?-?-?-?-?-?-?- KW- no vb/lof/ct x. good fm. US scheduled for 36 weeks. compression hose for occasional episodes of dizziness. 02/15/25 -?-?-?-?-?-?-?-?-?-?-?-?- 35w 5d 166 lb 3 oz 133/78 Nega tive -?-?-?-?-?-?-?-?-?-?-?-?- Negative 135 36 -?-?-?-?-?-?-?-?-?--?-?-?- SM- no vb lof go od fm n oregular ctx 02/26/25 -?-?-?-?-?-?-?-?-?-?-?-?- 37w 2d 167 lb 1 oz 132/87 Nega tive -?-?-?-?-?-?-?-?-?-?-?-?- Negative 145 37 1 -?-?-?-?-?-?-?-?-?-?-?-?- 60 -3 LC- no vb/ ctx/lof. good fm. LC- no vb/ctx/lof. good fm. gbs collected. 03/03/25 -?-?-?-?-?-?-?-?-?-?-?-?- 38w 0d 166 lb 3 oz 131/87 Nega tive -?-?-?-?-?-?-?-?-?-?-?-?- Negative 143 38 1 -?-?-?-?-?-?-?-?-?-?-?-?- MH-NO VB, LOF. N o CTX. No change in cx. Good FM 03/10/25 -?-?-?-?-?-?-?-?-?-?-?-?- 39w 0d 167 lb 1 oz 129/85 -?-?-?-?-?-?-?-?-?-?-?-?- 120 40 Cephalic 1 -?-?-?-?-?-?-?-?--?-?-?-?- 60 -3 KW- no vb/ lof/ctx. good fm. discussed IOL if needed. ACOG First Trimester First Trimester: Discussed Second Trimester Second Trimester: Signs and Symptoms of Labor, Selecting a care provider, Reproductive Life Planning & Contreception, Care Planning, Depression/Anxiety and Intimate Partner Violence; Discussed Tobacco Cessation Third Trimester Third Trimester: Pain Management Plans, Labor support person(s), Immediate Larc, Movement Monitoring, Signs and Symptoms of Preeclampsia and Education ROS Const Reports system reviewed and no additional complaints, except as documented Eyes Reports system reviewed and no additional complaints, except as documented ENT Reports system reviewed and no additional complaints, except as documented Card Reports system reviewed and no additional complaints, except as documented Resp Reports system reviewed and no additional complaints, except as documented GI Reports system reviewed and no additional complaints, except as documented, Denies nausea and Denies vomiting Reports system reviewed and no additional complaints, except as documented Musc Reports system reviewed and no additional complaints, except as documented Skin/Breast Reports system reviewed and no additional complaints, except as documented Neuro Yes system reviewed and no additional complaints, except as documented Psych Reports system reviewed and no additional complaints, except as documented Endo Reports system reviewed and no additional complaints, except as documented Conrad/Lymph Reports system reviewed and no additional complaints, except as documented Aller/Immun Reports system reviewed and no additional complaints, except as documented Exam Const General: cooperative, healthy appearing and no acute distress Orientation: alert, awake and oriented x3 Neck Neck: normal visual inspection and full ROM Resp Effort & Inspection: normal respiratory effort, able to speak in complete sentences and symmetric chest movement GI Inspection: normal to inspection Palpation: soft and other Other: gravid Skin General: no rashes or lesions noted Neuro General: patient alert, patient awake and patient oriented x3 Cognition: normal cognition Speech: speech normal Gait: normal gait Motor: muscle tone normal throughout Extrem General: normal to inspection and full ROM Psych Appearance: grossly normal Mental Status: mental status grossly normal Mood: congruent mood Affect: normal affect Speech and Movement: speech and movement normal Attitude: cooperative Thought Process: normal Thought Content: normal Judgment: judgment good Coding Level of Care Code Off vis,est,level 3 Diagnoses Anemia affecting in third trimester O99.013 Trimester: third trimester Exposure to parvovirus Z20.828 Abnormal ultrasound O28.3 History of gestational hypertension Z87.59 Supervision of high risk in third trimester O09.93 Trimester: third trimester 39 weeks gestation of Z3A.39 Weeks of gestation: 39 weeks Asthma J45.909 Assessment and Plan Assessment and Plan (1) Anemia affecting : Status: Acute Qualifiers: Trimester: third trimester Qualified Code(s): O99.013 - Anemia complicating , third trimester Comment: PO iron:was not taking vitamin due to nausea. Will take Fe in Am and a gummy PNV in evening. (2) Exposure to parvovirus: Status: Acute Comment: immunity. No new virus (3) Abnormal ultrasound: Status: Acute Comment: horseshoe kidney. normal echo. follow up growth at 32 weeks. (4) History of gestational hypertension: Status: Acute Comment: baby ASA recommended. baseline labs. (5) Supervision of high-risk : Status: Acute Qualifiers: Trimester: third trimester Qualified Code(s): O09.93 - Supervision of high risk , unspecified, third trimester Comment: [id number], PERLA 03/17/25, [facility]: Kia, : Markos (6) : Status: Acute Qualifiers: Weeks of gestation: 39 weeks Qualified Code(s): Z3A.39 - 39 weeks gestation of Comment: GBS negative. NIPT low risk, anatomy reviewed (7) Asthma: Status: Acute Comment: Childhood Orders: Orders POC Urinalysis 2 Dip (Clinic) Today Plan Details Additional Comments: ACOG trimester education reviewed and updated. see problem list details for updated plan management information and see below for orders placed at this visit. GA appropriate handout given. 03/10/25 9111 <Electronically signed by Yao naidu CNM> Date _ Yao Brambila CNM Cosigner Signature: Date (if applicable) CC: ~ [facility] Work Phone: 1(454) 298-674108-22-2025 [facility] [address] [place] [address], [address] [place] [id number] OFFICE VISIT Date of Service: 02/26/25 MR#: [id number] Acct: [id number] Name: NISSA CRAIN Rep #: [id number] : 1995 Provider: MARIKA Ramos Age/Sex: 30/F [place] [facility] Status: Signed Intake Vital Signs 02/01/25 14:55 02/15/25 15:37 02/26/25 15:25 Height 5 ft 3 in 5 ft 3 in 5 ft 3 in Weight: 167 lb 1 oz BMI 29.5 BP 132/87 H Intake Visit Reasons: 37 WK OB 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 Is patient in pain?: No Allergies No Known Allergies Allergy (Verified 02/26/25 15:27) Medications ?Medication ?Instructions ?Recorded ?Confirmed ?Type docosahexaenoic acid 200 mg mg PO 07/31/24 02/26/25 Hi story capsule ( DHA) ondansetron HCl 4 mg tablet 4 mg PO Q4H #60 tabs 01/0102/26/25 Rx Last Menstrual Period: 06/10/24 Zika: Zika virus screening: Negative : No Have you fallen in the past year?: No PFSH PFSH Family History Grandfather Stomach cancer Grandmother Breast cancer Social History adopted: No household members: spouse, children and other details: Pt's youger brother number of children: 1 current occupation: [employer] current occupational exposures/hazards: No pets and animals: Yes pets and animals: dog(s) history of recent travel: No sexually active: Yes Smoking Status: Never smoker alcohol intake: current alcohol intake frequency: holidays/special occasions only details: Not while substance use type: does not use well-balanced diet: daily or most days caffeine: Yes Type: carbonated beverages eating out: 1-3 times/week during the past year weight has: remained stable what type of physical activity do you participate in: none antoni/faith: None seatbelt use: always do you feel safe at home: Yes additional social history: : Martin Williamson Us History 2 Elective abortions Hx Para 1 Spontaneous abortions 0 Hx # Term Pregnancies 1 Ectopic pregnancies Hx # Pregnancies Multiple births # of living children 1 Past Pregnancies Del. Date Name GA/Weeks Outcome Route Bth Weight Gen Labor Lgth Anesthesia Del Locatn Provider FOB 04/08/22 Kia 37 live - full term 6lbs 9oz Male epidural [facility] Yana Salazar Delivery Date: 04/08/22 Last Updated by: Olive Day RN Induced for high blood pressure HPI 37 WK OB Details: NISSA CRAIN is a 30 year old who presents for routine OB visit. OB Visit PERLA Calculator Estimated Delivery Date Method Current WG Current Estimate 03/17/25 LMP (Certain) 37w 2d Other Estimates 03/18/25 Ultrasound #1 37w 1d Expected Delivery Route/Plan Labor Preferences- CB/BF classes: no labor support person: Markos labor intervention preferences: [] pain management options preferred: epidural cut cord/dad catch: cord : yes PP control planned: discussed discussed possible routes of delivery and associated risks: [] special requests: [] Specific Issue/Plans Covid status: [] Flu vaccine: [] Tdap vaccine: declines Rhogam: na LARC form signed: yes Problem list reviewed and updated with the most current plan of care details and appropriate ordersplaced. Relevant counseling for the gestational age provided. Continue routine care and follow up unless otherwise noted in visit notes/problem list details Initial Weight: Not Recorded Date -?-?-?-?-?-?-?-?-?-?-?-?- EGA Weight BP Urine Prot -?-?-?-?-?-?-?-?-?-?-?-?- Glucose FHR FuHt Pres Dilation -?-?-?-?-?-?-?-?-?-?-?-?- Effaced St Visit Note 08/14/24 -?-?-?-?-?-?-?-?-?-?-?-?- 9w 2d 141 lb 2 oz 126/74 -?-?-?-?-?-?-?-?--?-?-?-?- 179 -?-?-?-?-?-?-?-?-?-?-?-?- SM- CRL 9w1d con s with lmp 09/11/24 -?-?-?-?-?-?-?-?-?-?-?-?- 13w 2d 143 lb 6 oz 119/78 -?-?-?-?-?-?-?-?-?-?-?-?- 159 -?-?-?-?-?-?-?-?-?-?-?-?- KW- no vb/crampi ng. US ordered. encouraged to take PNV at night KW- no vb/cramping. US order ed. encouraged to take PNV at night. NIPT today 10/08/24 -?-?-?-?-?-?-?-?-?-?-?-?- 17w 1d 146 lb 6 oz 111/74 Nega tive -?-?-?-?-?-?-?-?-?-?-?-?- Negative 153 -?-?-?-?-?-?-?-?-?-?-?-?- JV- still having nausea. estefania refilled. anatomy scan scheduled 10/2011/06/24 -?-?-?-?-?-?-?-?-?-?-?-?- 21w 2d 150 lb 120/73 Negative -?-?-?-?-?-?-?-?-?-?-?-?- Negative 155 -?-?-?-?-?-?-?-?-?-?-?-?- KW- no vb/lof/ct x. good fm reviewed US. doing well. 12/02/24 -?-?-?-?-?-?-?-?-?-?-?-?- 25w 0d 154 lb 8 oz 118/72 Nega tive -?-?-?-?-?-?-?-?-?-?-?-?- Negative 152 -?-?-?-?-?-?-?-?-?-?-?-?- MH-NO VB, LOF. G ood FM. Having off and RUQ pain. NO rash or itching. GB US and labs 12/23/24 -?-?-?-?-?-?-?-?-?-?-?-?- 28w 0d 157 lb 4 oz 118/74 Nega tive -?-?-?-?-?-?-?-?-?-?-?-?- Negative 145 28 -?-?-?-?-?-?-?-?-?-?-?-?- SM- no vb lof go odf m no reugalr ctx 01/04/25 -?-?-?-?-?-?-?-?-?-?-?-?- 29w 5d 160 lb 8 oz 112/68 Nega tive -?-?-?-?-?-?-?-?-?-?-?-?- Negative 156 30 -?-?-?-?-?-?-?-?-?-?-?-?- MH-No VB, LOF. G ood FM. Has not been taking PNV. Mild anemia-take gummy PNV at night and Fe supp with OJ Qam. 01/25/25 -?-?-?-?-?-?-?-?-?-?-?-?- 32w 5d 161 lb 8 oz 123/78 Nega tive -?-?-?-?-?-?-?-?-?-?-?-?- Negative 140 32 -?-?-?-?-?-?-?-?-?-?-?-?- KW- no vb/lof/ct x. good fm. US reviewed. 02/01/25 -?-?-?-?-?-?-?-?-?-?-?-?- 33w 5d 164 lb 2 oz 121/85 Nega tive -?-?-?-?-?-?-?-?-?-?-?-?- Negative 135 34 -?-?-?-?-?-?-?-?-?-?-?-?- KW- no vb/lof/ct x. good fm. US scheduled for 36 weeks. compression hose for occasional episodes of dizziness. 02/15/25 -?-?-?-?-?-?-?-?-?-?-?-?- 35w 5d 166 lb 3 oz 133/78 Nega tive -?-?-?-?-?-?-?-?-?-?-?-?- Negative 135 36 -?-?-?-?-?-?-?-?-?-?-?-?- SM- no vb lof go od fm n oregular ctx 02/26/25 -?-?-?-?-?-?-?-?-?-?-?-?- 37w 2d 167 lb 1 oz 132/87 Nega tive -?-?-?-?-?-?-?-?-?-?-?--?- Negative 145 37 1 -?-?-?-?-?-?-?-?-?-?-?-?- 60 -3 LC- no vb/ ctx/lof. good fm. LC- no vb/ctx/lof. good fm. gbs collected. ACOG First Trimester First Trimester: Discussed Second Trimester Second Trimester: Signs and Symptoms of Labor, Selecting a care provider, Reproductive Life Planning & Contreception, Care Planning, Depression/Anxiety and Intimate Partner Violence; Discussed Tobacco Cessation Third Trimester Third Trimester: Pain Management Plans, Labor support person(s), Immediate Larc, Movement Monitoring, Signs and Symptoms of Preeclampsia and Brisbin Education ROS Const Denies anorexia, Denies body aches, Denies chills, Denies excessive sweating, Denies fatigue, Denies headache(s) and Denies lethargy ENT Denies headache(s) GI Denies abdominal pain, Denies coffee ground emesis, Reports constipation, Denies cramping and Reports nausea Denies sexual dysfunction, Reports urinary frequency, Denies urinary incontinence, Denies urinary hesitancy, Denies urinary urgency, Denies vaginal discharge, Denies vaginal dryness, Denies vaginal odor and Denies vaginal pruritus Skin/Breast Details: breast discomfort Neuro No headache(s) Endo Denies cold intolerance, Denies deepening of the voice, Denies excessive sweating, Denies fatigue, Denies flushing, Denies heat intolerance, Denies polydipsia and Denies polyphagia Exam Const General: cooperative, healthy appearing, comfortable and no acute distress Neck Neck: normal visual inspection, full ROM and no lymphadenopathy Thyroid: thyroid normal Chest Chest palpation & inspection: normal inspection of the chest Breast inspection: normal inspection of the breasts and normal inspection of the axillae Resp Effort & Inspection: normal respiratory effort, able to speak in complete sentences and symmetric chest movement GI Inspection: normal to inspection Palpation: soft External Female Exam: normal external appearance and normal appearance of the urethra Urethra: normal appearance of the urethra Speculum Exam - Vagina: normal appearance of the vagina Speculum Exam - Cervix: normal appearance of the cervix Bimanual Exam- Vagina & Uterus: uterine size normal (consistent with dates of ) OB/External & Speculum: no bleeding Skin General: rashes and/or lesions noted Neuro General: patient alert, patient awake and patient oriented x3 Psych Appearance: grossly normal and well kempt Results POC Urinalysis 2 Dip (Clinic) Office Urine Glucose Negative Last Edit by Syl Salguero on 02/26/25 15:32 Office Urine Protein Negative Last Edit by Syl Salguero on 02/26/25 15:32 Coding Level of Care Code OB Routine Diagnoses Anemia affecting in third trimester O99.013 Trimester: third trimester Exposure to parvovirus Z20.828 Abnormal ultrasound O28.3 History of gestational hypertension Z87.59 Supervision of high risk in third trimester O09.93 Trimester: third trimester 37 weeks gestation of Z3A.37 Weeks of gestation: 37 weeks Asthma J45.909 Assessment and Plan Assessment and Plan (1) Anemia affecting : Status: Acute Qualifiers: Trimester: third trimester Qualified Code(s): O99.013 - Anemia complicating , third trimester Comment: PO iron:was not taking vitamin due to nausea. Will take Fe in Am and a gummy PNV in evening. (2) Exposure to parvovirus: Status: Acute Comment: immunity. No new virus (3) Abnormal ultrasound: Status: Acute Comment: horseshoe kidney. normal echo. follow up growth at 32 weeks. (4) History of gestational hypertension: Status: Acute Comment: baby ASA recommended. baseline labs. (5) Supervision of high-risk : Status: Acute Qualifiers: Trimester: third trimester Qualified Code(s): O09.93 - Supervision of high risk , unspecified, third trimester Comment: [id number], PERLA 03/17/25, [facility]: Najmaotoniel, : Markos (6) : Status: Acute Qualifiers: Weeks of gestation: 37 weeks Qualified Code(s): Z3A.37 - 37 weeks gestation of Comment: NIPT low risk, anatomy reviewed (7) Asthma: Status: Acute Comment: Childhood Orders: Orders Culture, Group B Streptococcus Today O09.93 - Supervision of high risk , unspecified, third trimester POC Urinalysis 2 Dip (Clinic) Today Plan Details Additional Comments: ACOG trimester education reviewed and updated. oriented to practice. reviewed genetic and carrier screening patient has decided to [obtain screening]. nutrition, medication approved list reviewed. weight gain goal [] in ACOG booklet provided and reviewed see problem list details for updated plan management information and see below for orders placed atthis visit. [place] appropriate handout given. Clinical Quality Measures Falls Risk Screening/Assistive Devices Have you fallen in the past year?: No 02/26/25 1553 ns CNM> Date _ Krystyna Ramos [facility] Cosigner Signature: Date (if applicable) CC: ~ [facility]08-22-2025 Progress note Author Krystyna Ramos [facility] Note Date/Time February 26, 2025 3: 53pm [facility] [address], [address] [place] [address] OFFICE VISIT Date of Service: 02/26/25 MR#: [id number] Acct: [id number] Name: NISSA CRAIN Rep #: [id number] : 1995 Provider: MARIKA Ramos Age/Sex: 30/F Location: [facility] Status: Signed Intake Vital Signs 02/01/25 14:55 02/15/25 15:37 02/26/25 15:25 Height 5 ft 3 in 5 ft 3 in 5 ft 3 in Weight: 167 lb 1 oz BMI 29.5 BP 132/87 H Intake Visit Reasons: 37 WK OB 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 Is patient in pain?: No Allergies No Known Allergies Allergy (Verified 02/26/25 15:27) Medications ?Medication ?Instructions ?Recorded ?Confirmed ?Type docosahexaenoic acid 200 mg mg PO 07/31/24 02/26/25 Hi story capsule ( DHA) ondansetron HCl 4 mg tablet 4 mg PO Q4H #60 tabs 01/0102/26/25 Rx Last Menstrual Period: 06/10/24 Zika: Zika virus screening: Negative : No Have you fallen in the past year?: No PFSH PFSH Family History Grandfather Stomach cancer Grandmother Breast cancer Social History adopted: No household members: spouse, children and other details: Pt's youger brother number of children: 1 current occupation: [employer] current occupational exposures/hazards: No pets and animals: Yes pets and animals: dog(s) history of recent travel: No sexually active: Yes Smoking Status: Never smoker alcohol intake: current alcohol intake frequency: holidays/special occasions only details: Not while substance use type: does not use well-balanced diet: daily or most days caffeine: Yes Type: carbonated beverages eating out: 1-3 times/week during the past year weight has: remained stable what type of physical activity do you participate in: none antoni/faith: None seatbelt use: always do you feel safe at home: Yes additional social history: : [employer] History 2 Elective abortions Hx Para 1 Spontaneous abortions 0 Hx # Term Pregnancies 1 Ectopic pregnancies Hx # Pregnancies Multiple births # of living children 1 Past Pregnancies Del. Date Name GA/Weeks Outcome Route Bth Weight Gen Labor Lgth Anesthesia Del Locatn Provider FOB 04/08/22 Kia 37 live - full term 6lbs 9oz Male epidural [facility] Yana Salazar Delivery Date: 04/08/22 Last Updated by: Olive Day RN Induced for high blood pressure HPI 37 WK OB Details: NISSA CRAIN is a 30 year old who presents for routine OB visit. OB Visit PERLA Calculator Estimated Delivery Date Method Current WG Current Estimate 03/17/25 LMP (Certain) 37w 2d Other Estimates 03/18/25 Ultrasound #1 37w 1d Expected Delivery Route/Plan Labor Preferences- CB/BF classes: no labor support person: Markos labor intervention preferences: [] pain management options preferred: epidural cut cord/dad catch: cord : yes PP control planned: discussed discussed possible routes of delivery and associated risks: [] special requests: [] Specific Issue/Plans Covid status: [] Flu vaccine: [] Tdap vaccine: declines Rhogam: na LARC form signed: yes Problem list reviewed and updated with the most current plan of care details and appropriate orders placed. Relevant counseling for the gestational age provided. Continue routine care and follow up unless otherwise noted in visit notes/problem list details Initial Weight: Not Recorded Date -?-?-?-?-?-?-?-?-?-?-?-?- EGA Weight BP Urine Prot -?-?-?-?-?-?-?-?-?-?-?-?- Glucose FHR FuHt Pres Dilation -?-?-?-?-?-?-?-?-?-?-?-?- Effaced St Visit Note 08/14/24 -?-?-?-?-?-?-?-?-?-?-?-?- 9w 2d 141 lb 2 oz 126/74 -?-?-?-?-?-?-?-?--?-?-?-?- 179 -?-?-?-?-?-?-?-?-?-?-?-?- SM- CRL 9w1d con s with lmp 09/11/24 -?-?-?-?-?-?-?-?-?-?-?-?- 13w 2d 143 lb 6 oz 119/78 -?-?-?-?-?-?-?-?-?-?-?-?- 159 -?-?-?-?-?-?-?-?-?-?-?-?- KW- no vb/crampi ng. US ordered. encouraged to take PNV at night KW- no vb/cramping. US order ed. encouraged to take PNV at night. NIPT today 10/08/24 -?-?-?-?-?-?-?-?-?-?-?-?- 17w 1d 146 lb 6 oz 111/74 Nega tive -?-?-?-?-?-?-?-?-?-?-?-?- Negative 153 -?-?-?-?-?-?-?-?-?-?-?-?- JV- still having nausea. estefania refilled. anatomy scan scheduled 10/2011/06/24 -?-?-?-?-?-?-?-?-?-?-?-?- 21w 2d 150 lb 120/73 Negative -?-?-?-?-?-?-?-?-?-?-?-?- Negative 155 -?-?-?-?-?-?-?-?-?-?-?-?- KW- no vb/lof/ct x. good fm reviewed US. doing well. 12/02/24 -?-?-?-?-?-?-?-?-?-?-?-?- 25w 0d 154 lb 8 oz 118/72 Nega tive -?-?-?-?-?-?-?-?-?-?-?-?- Negative 152 -?-?-?-?-?-?-?-?-?-?-?-?- MH-NO VB, LOF. G ood FM. Having off and RUQ pain. NO rash or itching. GB US and labs 12/23/24 -?-?-?-?-?-?-?-?-?-?-?-?- 28w 0d 157 lb 4 oz 118/74 Nega tive -?-?-?-?-?-?-?-?-?-?-?-?- Negative 145 28 -?-?-?-?-?-?-?-?-?-?-?-?- SM- no vb lof go odf m no reugalr ctx 01/04/25 -?-?-?-?-?-?-?-?-?-?-?-?- 29w 5d 160 lb 8 oz 112/68 Nega tive -?-?-?-?-?-?-?-?-?-?-?-?- Negative 156 30 -?-?-?-?-?-?-?-?-?-?-?-?- MH-No VB, LOF. G ood FM. Has not been taking PNV. Mild anemia-take gummy PNV at night and Fe supp with OJ Qam. 01/25/25 -?-?-?-?-?-?-?-?-?-?-?-?- 32w 5d 161 lb 8 oz 123/78 Nega tive -?-?-?-?-?-?-?-?-?-?-?-?- Negative 140 32 -?-?-?-?-?-?-?-?-?-?-?-?- KW- no vb/lof/ct x. good fm. US reviewed. 02/01/25 -?-?-?-?-?-?-?-?-?-?-?-?- 33w 5d 164 lb 2 oz 121/85 Nega tive -?-?-?-?-?-?-?-?-?-?-?-?- Negative 135 34 -?-?-?-?-?-?-?-?-?-?-?-?- KW- no vb/lof/ct x. good fm. US scheduled for 36 weeks. compression hose for occasional episodes of dizziness. 02/15/25 -?-?-?-?-?-?-?-?-?-?-?-?- 35w 5d 166 lb 3 oz 133/78 Nega tive -?-?-?-?-?-?-?-?-?-?-?-?- Negative 135 36 -?-?-?-?-?-?-?-?-?-?-?-?- SM- no vb lof go od fm n oregular ctx 02/26/25 -?-?-?-?-?-?-?-?-?-?-?-?- 37w 2d 167 lb 1 oz 132/87 Nega tive -?-?-?-?-?-?-?-?-?-?-?--?- Negative 145 37 1 -?-?-?-?-?-?-?-?-?-?-?-?- 60 -3 LC- no vb/ ctx/lof. good fm. LC- no vb/ctx/lof. good fm. gbs collected. ACOG First Trimester First Trimester: Discussed Second Trimester Second Trimester: Signs and Symptoms of Labor, Selecting a care provider, Reproductive Life Planning & Contreception, Care Planning, Depression/Anxiety and Intimate Partner Violence; Discussed Tobacco Cessation Third Trimester Third Trimester: Pain Management Plans, Labor support person(s), Immediate Larc, Movement Monitoring, Signs and Symptoms of Preeclampsia and Brisbin Education ROS Const Denies anorexia, Denies body aches, Denies chills, Denies excessive sweating, Denies fatigue, Denies headache(s) and Denies lethargy ENT Denies headache(s) GI Denies abdominal pain, Denies coffee ground emesis, Reports constipation, Denies cramping and Reports nausea Denies sexual dysfunction, Reports urinary frequency, Denies urinary incontinence, Denies urinary hesitancy, Denies urinary urgency, Denies vaginal discharge, Denies vaginal dryness, Denies vaginal odor and Denies vaginal pruritus Skin/Breast Details: breast discomfort Neuro No headache(s) Endo Denies cold intolerance, Denies deepening of the voice, Denies excessive sweating, Denies fatigue, Denies flushing, Denies heat intolerance, Denies polydipsia and Denies polyphagia Exam Const General: cooperative, healthy appearing, comfortable and no acute distress Neck Neck: normal visual inspection, full ROM and no lymphadenopathy Thyroid: thyroid normal Chest Chest palpation & inspection: normal inspection of the chest Breast inspection: normal inspection of the breasts and normal inspection of the axillae Resp Effort & Inspection: normal respiratory effort, able to speak in complete sentences and symmetric chest movement GI Inspection: normal to inspection Palpation: soft External Female Exam: normal external appearance and normal appearance of the urethra Urethra: normal appearance of the urethra Speculum Exam - Vagina: normal appearance of the vagina Speculum Exam - Cervix: normal appearance of the cervix Bimanual Exam- Vagina & Uterus: uterine size normal (consistent with dates of ) OB/External & Speculum: no bleeding Skin General: rashes and/or lesions noted Neuro General: patient alert, patient awake and patient oriented x3 Psych Appearance: grossly normal and well kempt Results POC Urinalysis 2 Dip (Clinic) Office Urine Glucose Negative Last Edit by Syl Salguero on 02/26/25 15:32 Office Urine Protein Negative Last Edit by Syl Salguero on 02/26/25 15:32 Coding Level of Care Code OB Routine Diagnoses Anemia affecting in third trimester O99.013 Trimester: third trimester Exposure to parvovirus Z20.828 Abnormal ultrasound O28.3 History of gestational hypertension Z87.59 Supervision of high risk in third trimester O09.93 Trimester: third trimester 37 weeks gestation of Z3A.37 Weeks of gestation: 37 weeks Asthma J45.909 Assessment and Plan Assessment and Plan (1) Anemia affecting : Status: Acute Qualifiers: Trimester: third trimester Qualified Code(s): O99.013 - Anemia complicating , third trimester Comment: PO iron:was not taking vitamin due to nausea. Will take Fe in Am and a gummy PNV in evening. (2) Exposure to parvovirus: Status: Acute Comment: immunity. No new virus (3) Abnormal ultrasound: Status: Acute Comment: horseshoe kidney. normal echo. follow up growth at 32 weeks. (4) History of gestational hypertension: Status: Acute Comment: baby ASA recommended. baseline labs. (5) Supervision of high-risk : Status: Acute Qualifiers: Trimester: third trimester Qualified Code(s): O09.93 - Supervision of high risk , unspecified, third trimester Comment: [id number], PERLA 03/17/25, [facility]: Kia, : Markos (6) : Status: Acute Qualifiers: Weeks of gestation: 37 weeks Qualified Code(s): Z3A.37 - 37 weeks gestation of Comment: NIPT low risk, anatomy reviewed (7) Asthma: Status: Acute Comment: Childhood Orders: Orders Culture, Group B Streptococcus Today O09.93 - Supervision of high risk , unspecified, third trimester POC Urinalysis 2 Dip (Clinic) Today Plan Details Additional Comments: ACOG trimester education reviewed and updated. oriented to practice. reviewed genetic and carrier screening patient has decided to [obtain screening]. nutrition, medication approved list reviewed. weight gain goal [] in ACOG booklet provided and reviewed see problem list details for updated plan management information and see below for orders placed at this visit. [place] appropriate handout given. Clinical Quality Measures Falls Risk Screening/Assistive Devices Have you fallen in the past year?: No 02/26/25 1553 <Electronically signed by Krystyna mace CNM> Date _ Krystyna Ramos CNM Cosigner Signature: Date (if applicable) CC: ~ [employer] [facility] Work Phone: [phone] [facility] [address] [place] [address], [address] [place] [address] OFFICE VISIT Date of Service: 02/15/25 MR#: [id number] Acct: [id number] Name: NISSA CRAIN Rep #: [id number] : 1995 Provider: Dr. Arron Taveras MD Age/Sex: 30/F [place] [facility] [place]: Signed Intake Vital Signs 12/23/24 13:00 02/01/25 14:55 02/15/25 15:34 02/15/25 15:37 Height 5 ft 3 in 5 ft 3 in 5 ft 3 in 5 ft 3 in Weight: 166 lb 3 oz BMI 29.4 BP 133/78 H Intake Visit Reasons: 36 wk ob 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 Is patient in pain?: No Allergies No Known Allergies Allergy (Verified 02/15/25 15:30) Medications 3 ?Medication ?Instructions ?Recorded ?Confirmed ?Type docosahexaenoic acid 200 mg mg PO 07/31/24 02/15/25 Hi story capsule ( DHA) ondansetron HCl 4 mg tablet 4 mg PO Q4H #60 tabs 01/0102/15/25 Rx Last Menstrual Period: 06/10/24 Zika: Zika virus screening: Negative : No PFSH PFSH Family History Grandfather Stomach cancer Grandmother Breast cancer Social History adopted: No household members: spouse, children and other details: Pt's youger brother number of children: 1 current occupation: [employer] current occupational exposures/hazards: No pets and animals: Yes pets and animals: dog(s) history of recent travel: No sexually active: Yes Smoking Status: Never smoker alcohol intake: current alcohol intake frequency: holidays/special occasions only details: Not while substance use type: does not use well-balanced diet: daily or most days caffeine: Yes Type: carbonated beverages eating out: 1-3 times/week during the past year weight has: remained stable what type of physical activity do you participate in: none antoni/faith: None seatbelt use: always do you feel safe at home: Yes additional social history: : [employer] History 2 Elective abortions Hx Para 1 Spontaneous abortions 0 Hx # Term Pregnancies 1 Ectopic pregnancies Hx # Pregnancies Multiple births # of living children 1 Past Pregnancies Del. Date Name GA/Weeks Outcome Route Bth Weight Gen Labor Lgth Anesthesia Del Locatn Provider FOB 04/08/22 Kia 37 live - full term 6lbs 9oz Male epidural [facility] Delivery Date: 04/08/22 Last Updated by: Olive Day RN Induced for high blood pressure HPI 36 wk ob Details: NISSA CRAIN is a 30 year old who presents for routine OB visit. OB Visit PERLA Calculator Estimated Delivery Date Method Current WG Current Estimate 03/17/25 LMP (Certain) 35w 5d Other Estimates 03/18/25 Ultrasound #1 35w 4d Expected Delivery Route/Plan Labor Preferences- CB/BF classes: no labor support person: Markos labor intervention preferences: [] pain management options preferred: epidural cut cord/dad catch: cord : yes PP control planned: discussed discussed possible routes of delivery and associated risks: [] special requests: [] Specific Issue/Plans Covid status: [] Flu vaccine: [] Tdap vaccine: declines Rhogam: na LARC form signed: yes Problem list reviewed and updated with the most current plan of care details and appropriate ordersplaced. Relevant counseling for the gestational age provided. Continue routine care and follow up unless otherwise noted in visit notes/problem list details Initial Weight: Not Recorded Date -?-?-?-?-?-?-?-?-?-?-?-?- EGA Weight BP Urine Prot -?-?-?-?-?-?-?-?-?-?-?-?- Glucose FHR FuHt Pres Dilation -?-?-?-?-?-?-?-?-?-?-?-?- Effaced St Visit Note 08/14/24 -?-?-?-?-?-?-?-?-?-?-?-?- 9w 2d 141 lb 2 oz 126/74 -?-?-?-?-?-?-?-?-?-?-?-?- 179 -?-?-?-?-?-?-?-?-?-?-?-?- SM- CRL 9w1d con s with lmp 09/11/24 -?-?-?-?-?-?-?-?-?-?-?-?- 13w 2d 143 lb 6 oz 119/78 -?-?-?-?-?-?-?-?-?-?-?-?- 159 -?-?-?-?-?-?-?-?-?-?-?-?- KW- no vb/crampi ng. US ordered. encouraged to take PNV at night KW- no vb/cramping. US order ed. encouraged to take PNV at night. NIPT today 10/08/24 -?-?-?-?-?-?-?-?-?-?-?-?- 17w 1d 146 lb 6 oz 111/74 Nega tive -?-?-?-?-?-?-?-?-?-?-?-?- Negative 153 -?-?-?-?-?-?-?-?-?-?-?-?- JV- still having nausea. estefania refilled. anatomy scan scheduled 10/2011/06/24 -?-?-?-?-?-?-?-?-?-?-?-?- 21w 2d 150 lb 120/73 Negative -?-?-?-?-?-?-?-?-?-?-?-?- Negative 155 -?-?-?-?-?-?-?-?-?-?-?-?- KW- no vb/lof/ct x. good fm reviewed US. doing well. 12/02/24 -?-?-?-?-?-?-?-?-?-?-?-?- 25w 0d 154 lb 8 oz 118/72 Nega tive -?-?-?-?-?-?-?-?-?-?-?-?- Negative 152 -?-?-?-?-?-?-?-?-?-?-?-?- MH-NO VB, LOF. G ood FM. Having off and RUQ pain. NO rash or itching. GB US and labs 12/23/24 -?-?-?-?-?-?-?-?-?-?-?-?- 28w 0d 157 lb 4 oz 118/74 Nega tive -?-?-?-?-?-?-?-?-?-?-?-?- Negative 145 28 -?-?-?-?-?-?-?-?-?-?-?-?- SM- no vb lof go odf m no reugalr ctx 01/04/25 -?-?-?-?-?-?-?-?-?-?-?-?- 29w 5d 160 lb 8 oz 112/68 Nega tive -?-?-?-?-?-?-?-?-?-?-?-?- Negative 156 30 -?-?-?-?-?-?-?-?-?-?-?-?- MH-No VB, LOF. G ood FM. Has not been taking PNV. Mild anemia-take gummy PNV at night and Fe supp with OJ Qam. 01/25/25 -?-?-?-?-?-?-?-?-?-?-?-?- 32w 5d 161 lb 8 oz 123/78 Nega tive -?-?-?-?-?-?-?-?-?-?-?-?- Negative 140 32 -?-?-?-?-?-?-?-?-?-?-?-?- KW- no vb/lof/ct x. good fm. US reviewed. 02/01/25 -?-?-?-?-?-?-?-?-?-?-?-?- 33w 5d 164 lb 2 oz 121/85 Nega tive -?-?-?-?-?-?-?-?-?-?-?-?- Negative 135 34 -?-?-?-?-?-?-?-?-?-?-?-?- KW- no vb/lof/ct x. good fm. US scheduled for 36 weeks. compression hose for occasional episodes of dizziness. 02/15/25 -?-?-?-?-?-?-?-?-?-?-?-?- 35w 5d 166 lb 3 oz 133/78 Nega tive -?-?-?-?-?-?-?-?-?-?-?-?- Negative 135 36 -?-?-?-?-?-?-?-?-?-?-?-?- SM- no vb lof go od fm n oregular ctx ACOG First Trimester First Trimester: Discussed Second Trimester Second Trimester: Signs and Symptoms of Labor, Selecting a care provider, Reproductive Life Planning & Contreception, Care Planning, Depression/Anxiety and Intimate Partner Violence; Discussed Tobacco Cessation Third Trimester Third Trimester: Pain Management Plans, Labor support person(s), Immediate Larc, Movement Monitoring, Signs and Symptoms of Preeclampsia and Brisbin Education Results POC Urinalysis 2 Dip (Clinic) Office Urine Glucose Negative Last Edit by Andre Avitia on 02/15/25 15:38 Office Urine Protein Negative Last Edit by Andre Avitia on 02/15/25 15:38 Coding Level of Care Code OB Routine Diagnoses Anemia affecting in third trimester O99.013 Trimester: third trimester Exposure to parvovirus Z20.828 Abnormal ultrasound O28.3 History of gestational hypertension Z87.59 Supervision of high risk in third trimester O09.93 Trimester: third trimester Asthma J45.909 35 weeks gestation of Z3A.35 Weeks of gestation: 35 weeks Assessment and Plan Assessment and Plan (1) Anemia affecting : Status: Acute Qualifiers: Trimester: third trimester Qualified Code(s): O99.013 - Anemia complicating , third trimester Comment: PO iron:was not taking vitamin due to nausea. Will take Fe in Am and a gummy PNV in evening. (2) Exposure to parvovirus: Status: Acute Comment: immunity. No new virus (3) Abnormal ultrasound: Status: Acute Comment: horseshoe kidney. normal echo. follow up growth at 32 weeks. (4) History of gestational hypertension: Status: Acute Comment: baby ASA recommended. baseline labs. (5) Supervision of high-risk : Status: Acute Qualifiers: Trimester: third trimester Qualified Code(s): O09.93 - Supervision of high risk , unspecified, third trimester Comment: [id number], PERLA 03/17/25, [facility]: Kia, : Markos (6) Asthma: Status: Acute Comment: Childhood (7) : Status: Acute Qualifiers: Weeks of gestation: 35 weeks Qualified Code(s): Z3A.35 - 35 weeks gestation of Comment: NIPT low risk, anatomy reviewed Orders: Orders POC Urinalysis 2 Dip (Clinic) Today 02/15/25 Amanda velez MD> Date _ Thelma Taveras MD Cosigner Signature: Date (if applicable) CC: ~ [facility]08-11-2025 Progress note Author Thelma Taveras [facility] Note Date/Time February 15, 2025 3: 52pm [facility] [address], [address] [place] [address] OFFICE VISIT Date of Service: 02/15/25 MR#: [id number] Acct: [id number] Name: NISSA CRAIN Rep #: [id number] : 1995 Provider: Dr. Arron Taveras MD Age/Sex: 30/F [place] [facility] [place]: Signed Intake Vital Signs 12/23/24 13:00 02/01/25 14:55 02/15/25 15:34 02/15/25 15:37 Height 5 ft 3 in 5 ft 3 in 5 ft 3 in 5 ft 3 in Weight: 166 lb 3 oz BMI 29.4 BP 133/78 H Intake Visit Reasons: 36 wk ob 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 Is patient in pain?: No Allergies No Known Allergies Allergy (Verified 02/15/25 15:30) Medications 3 ?Medication ?Instructions ?Recorded ?Confirmed ?Type docosahexaenoic acid 200 mg mg PO 07/31/24 02/15/25 Hi story capsule ( DHA) ondansetron HCl 4 mg tablet 4 mg PO Q4H #60 tabs 01/0102/15/25 Rx Last Menstrual Period: 06/10/24 Zika: Zika virus screening: Negative : No PFSH PFSH Family History Grandfather Stomach cancer Grandmother Breast cancer Social History adopted: No household members: spouse, children and other details: Pt's youger brother number of children: 1 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 current occupational exposures/hazards: No pets and animals: Yes pets and animals: dog(s) history of recent travel: No sexually active: Yes Smoking Status: Never smoker alcohol intake: current alcohol intake frequency: holidays/special occasions only details: Not while substance use type: does not use well-balanced diet: daily or most days caffeine: Yes Type: carbonated beverages eating out: 1-3 times/week during the past year weight has: remained stable what type of physical activity do you participate in: none antoni/faith: None seatbelt use: always do you feel safe at home: Yes additional social history: : Martin Williamson History 2 Elective abortions Hx Para 1 Spontaneous abortions 0 Hx # Term Pregnancies 1 Ectopic pregnancies Hx # Pregnancies Multiple births # of living children 1 Past Pregnancies Del. Date Name GA/Weeks Outcome Route Bth Weight Gen Labor Lgth Anesthesia Del Locatn Provider FOB 04/08/22 Jasminkayleneotoniel 37 live - full term 6lbs 9oz Male epidural [facility] Delivery Date: 04/08/22 Last Updated by: Olive Day RN Induced for high blood pressure HPI 36 wk ob Details: NISSA CRAIN is a 30 year old who presents for routine OB visit. OB Visit PERLA Calculator Estimated Delivery Date Method Current WG Current Estimate 03/17/25 LMP (Certain) 35w 5d Other Estimates 03/18/25 Ultrasound #1 35w 4d Expected Delivery Route/Plan Labor Preferences- CB/BF classes: no labor support person: Markos labor intervention preferences: [] pain management options preferred: epidural cut cord/dad catch: cord : yes PP control planned: discussed discussed possible routes of delivery and associated risks: [] special requests: [] Specific Issue/Plans Covid status: [] Flu vaccine: [] Tdap vaccine: declines Rhogam: na LARC form signed: yes Problem list reviewed and updated with the most current plan of care details and appropriate orders placed. Relevant counseling for the gestational age provided. Continue routine care and follow up unless otherwise noted in visit notes/problem list details Initial Weight: Not Recorded Date -?-?-?-?-?-?-?-?-?-?-?-?- EGA Weight BP Urine Prot -?-?-?-?-?-?-?-?-?-?-?-?- Glucose FHR FuHt Pres Dilation -?-?-?-?-?-?-?-?-?-?-?-?- Effaced St Visit Note 08/14/24 -?-?-?-?-?-?-?-?-?-?-?-?- 9w 2d 141 lb 2 oz 126/74 -?-?-?-?-?-?-?-?-?-?-?-?- 179 -?-?-?-?-?-?-?-?-?-?-?-?- SM- CRL 9w1d con s with lmp 09/11/24 -?-?-?-?-?-?-?-?-?-?-?-?- 13w 2d 143 lb 6 oz 119/78 -?-?-?-?-?-?-?-?-?-?-?-?- 159 -?-?-?-?-?-?-?-?-?-?-?-?- KW- no vb/crampi ng. US ordered. encouraged to take PNV at night KW- no vb/cramping. US order ed. encouraged to take PNV at night. NIPT today 10/08/24 -?-?-?-?-?-?-?-?-?-?-?-?- 17w 1d 146 lb 6 oz 111/74 Nega tive -?-?-?-?-?-?-?-?-?-?-?-?- Negative 153 -?-?-?-?-?-?-?-?-?-?-?-?- JV- still having nausea. estefania refilled. anatomy scan scheduled 10/2011/06/24 -?-?-?-?-?-?-?-?-?-?-?-?- 21w 2d 150 lb 120/73 Negative -?-?-?-?-?-?-?-?-?-?-?-?- Negative 155 -?-?-?-?-?-?-?-?-?-?-?-?- KW- no vb/lof/ct x. good fm reviewed US. doing well. 12/02/24 -?-?-?-?-?-?-?-?-?-?-?-?- 25w 0d 154 lb 8 oz 118/72 Nega tive -?-?-?-?-?-?-?-?-?-?-?-?- Negative 152 -?-?-?-?-?-?-?-?-?-?-?-?- -NO VB, LOF. G ood FM. Having off and RUQ pain. NO rash or itching. GB US and labs 12/23/24 -?-?-?-?-?-?-?-?-?-?-?-?- 28w 0d 157 lb 4 oz 118/74 Nega tive -?-?-?-?-?-?-?-?-?-?-?-?- Negative 145 28 -?-?-?-?-?-?-?-?-?-?-?-?- SM- no vb lof go odf m no reugalr ctx 01/04/25 -?-?-?-?-?-?-?-?-?-?-?-?- 29w 5d 160 lb 8 oz 112/68 Nega tive -?-?-?-?-?-?-?-?-?-?-?-?- Negative 156 30 -?-?-?-?-?-?-?-?-?-?-?-?- -No VB, LOF. G ood FM. Has not been taking PNV. Mild anemia-take gummy PNV at night and Fe supp with OJ Qam. 01/25/25 -?-?-?-?-?-?-?-?-?-?-?-?- 32w 5d 161 lb 8 oz 123/78 Nega tive -?-?-?-?-?-?-?-?-?-?-?-?- Negative 140 32 -?-?-?-?-?-?-?-?-?-?-?-?- KW- no vb/lof/ct x. good fm. US reviewed. 02/01/25 -?-?-?-?-?-?-?-?-?-?-?-?- 33w 5d 164 lb 2 oz 121/85 Nega tive -?-?-?-?-?-?-?-?-?-?-?-?- Negative 135 34 -?-?-?-?-?-?-?-?-?-?-?-?- KW- no vb/lof/ct x. good fm. US scheduled for 36 weeks. compression hose for occasional episodes of dizziness. 02/15/25 -?-?-?-?-?-?-?-?-?-?-?-?- 35w 5d 166 lb 3 oz 133/78 Nega tive -?-?-?-?-?-?-?-?-?-?-?-?- Negative 135 36 -?-?-?-?-?-?-?-?-?-?-?-?- SM- no vb lof go od fm n oregular ctx ACOG First Trimester First Trimester: Discussed Second Trimester Second Trimester: Signs and Symptoms of Labor, Selecting a care provider, Reproductive Life Planning & Contreception, Care Planning, Depression/Anxiety and Intimate Partner Violence; Discussed Tobacco Cessation Third Trimester Third Trimester: Pain Management Plans, Labor support person(s), Immediate Larc, Movement Monitoring, Signs and Symptoms of Preeclampsia and Education Results POC Urinalysis 2 Dip (Clinic) Office Urine Glucose Negative Last Edit by Andre Avitia on 02/15/25 15:38 Office Urine Protein Negative Last Edit by Andre Avitia on 02/15/25 15:38 Coding Level of Care Code OB Routine Diagnoses Anemia affecting in third trimester O99.013 Trimester: third trimester Exposure to parvovirus Z20.828 Abnormal ultrasound O28.3 History of gestational hypertension Z87.59 Supervision of high risk in third trimester O09.93 Trimester: third trimester Asthma J45.909 35 weeks gestation of Z3A.35 Weeks of gestation: 35 weeks Assessment and Plan Assessment and Plan (1) Anemia affecting : Status: Acute Qualifiers: Trimester: third trimester Qualified Code(s): O99.013 - Anemia complicating , third trimester Comment: PO iron:was not taking vitamin due to nausea. Will take Fe in Am and a gummy PNV in evening. (2) Exposure to parvovirus: Status: Acute Comment: immunity. No new virus (3) Abnormal ultrasound: Status: Acute Comment: horseshoe kidney. normal echo. follow up growth at 32 weeks. (4) History of gestational hypertension: Status: Acute Comment: baby ASA recommended. baseline labs. (5) Supervision of high-risk : Status: Acute Qualifiers: Trimester: third trimester Qualified Code(s): O09.93 - Supervision of high risk , unspecified, third trimester Comment: [id number], PERLA 03/17/25, [facility] PC: Kia, : Markos (6) Asthma: Status: Acute Comment: Childhood (7) : Status: Acute Qualifiers: Weeks of gestation: 35 weeks Qualified Code(s): Z3A.35 - 35 weeks gestation of Comment: NIPT low risk, anatomy reviewed Orders: Orders POC Urinalysis 2 Dip (Clinic) Today 02/15/25 5206 <Electronically signed by Thelma velez MD> Date _ Thelma Taveras MD Cosign Signature: Date (if applicable) CC: ~ [facility] Work Phone: [phone]) 159-767207-28-2025 [facility] [address] [place] [address], [address] [place] [id number] OFFICE VISIT Date of Service: 02/01/25 MR#: [id number] Acct: [id number] Name: NISSA CRAIN Rep #: [id number] : 1995 Provider: MARIKA Brambila Age/Sex: 30/F [place] [facility] [place]: Signed Intake Vital Signs 12/02/24 15:37 01/25/25 09:30 02/01/25 14:55 Height 5 ft 3 in 5 ft 3 in 5 ft 3 in Weight: 164 lb 2 oz BMI 29.0 BP 121/85 H Intake Visit Reasons: 34wk ob Chief Complaint: 34wk OB 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 Is patient in pain?: No Allergies No Known Allergies Allergy (Verified 02/01/25 14:54) Medications ?Medication ?Instructions ?Recorded ?Confirmed ?Type docosahexaenoic acid 200 mg mg PO 07/31/24 02/01/25 Hi story capsule ( DHA) ondansetron HCl 4 mg tablet 4 mg PO Q4H #60 tabs 01/0102/01/25 Rx Last Menstrual Period: 06/10/24 : No PFSH PFSH Family History Grandfather Stomach cancer Grandmother Breast cancer Social History adopted: No household members: spouse, children and other details: Pt's youger brother number of children: 1 current occupation: [employer] current occupational exposures/hazards: No pets and animals: Yes pets and animals: dog(s) history of recent travel: No sexually active: Yes Smoking Status: Never smoker alcohol intake: current alcohol intake frequency: holidays/special occasions only details: Not while substance use type: does not use well-balanced diet: daily or most days caffeine: Yes Type: carbonated beverages eating out: 1-3 times/week during the past year weight has: remained stable what type of physical activity do you participate in: none antoni/faith: None seatbelt use: always do you feel safe at home: Yes additional social history: : Martin Williamson Us History 2 Elective abortions Hx Para 1 Spontaneous abortions 0 Hx # Term Pregnancies 1 Ectopic pregnancies Hx # Pregnancies Multiple births # of living children 1 Past Pregnancies Del. Date Name GA/Weeks Outcome Route Bth Weight Infant Gen Labor Lgth Anesthesia Del Locatn Provider FOB 04/08/22 Kia 37 live - full term 6lbs 9oz Male epidural [facility] Delivery Date: 10/02/22 Last Updated by: Olive Day RN Induced for high blood pressure HPI 34wk ob Details: NISSA CRAIN is a 30 year old who presents for routine OB visit. OB Visit PERLA Calculator Estimated Delivery Date Method Current WG Current Estimate 03/17/25 LMP (Certain) 33w 5d Other Estimates 03/18/25 Ultrasound #1 33w 4d Expected Delivery Route/Plan Labor Preferences- CB/BF classes: no labor support person: Markos labor intervention preferences: [] pain management options preferred: epidural cut cord/dad catch: cord : yes PP control planned: discussed discussed possible routes of delivery and associated risks: [] special requests: [] Specific Issue/Plans Covid status: [] Flu vaccine: [] Tdap vaccine: declines Rhogam: na LARC form signed: yes Problem list reviewed and updated with the most current plan of care details and appropriate ordersplaced. Relevant counseling for the gestational age provided. Continue routine care and follow up unless otherwise noted in visit notes/problem list details Initial Weight: Not Recorded Date -?-?-?-?-?-?-?-?-?-?-?-?- EGA Weight BP Urine Prot -?-?-?-?-?-?-?-?-?-?-?-?- Glucose FHR FuHt Pres Dilation -?-?-?-?-?-?-?-?-?-?-?-?- Effaced St Visit Note 08/14/24 -?-?-?-?-?-?-?-?-?-?-?-?- 9w 2d 141 lb 2 oz 126/74 -?-?-?-?-?-?-?-?-?-?-?-?- 179 -?-?-?-?-?-?-?-?-?-?-?-?- SM- CRL 9w1d con s with lmp 09/11/24 -?-?-?-?-?-?-?-?-?-?-?-?- 13w 2d 143 lb 6 oz 119/78 -?-?-?-?-?-?-?-?-?-?-?-?- 159 -?-?-?-?-?-?-?-?-?-?-?--?- KW- no vb/crampi ng. US ordered. encouraged to take PNV at night KW- no vb/cramping. US order ed. encouraged to take PNV at night. NIPT today 10/08/24 -?-?-?-?-?-?-?-?--?-?-?-?- 17w 1d 146 lb 6 oz 111/74 Nega tive -?-?-?-?-?-?-?-?-?-?-?-?- Negative 153 -?-?-?-?-?-?-?-?-?-?-?-?- JV- still having nausea. estefania refilled. anatomy scan scheduled 10/2011/06/24 -?-?-?-?-?-?-?-?-?-?-?-?- 21w 2d 150 lb 120/73 Negative -?-?-?-?-?-?-?-?-?-?-?-?- Negative 155 -?-?-?-?-?-?-?-?-?-?-?-?- KW- no vb/lof/ct x. good fm reviewed US. doing well. 12/02/24 -?-?-?-?-?-?-?-?-?-?-?-?- 25w 0d 154 lb 8 oz 118/72 Nega tive -?-?-?-?-?-?-?-?-?-?-?-?- Negative 152 -?-?-?-?-?-?-?-?-?-?-?-?- MH-NO VB, LOF. G ood FM. Having off and RUQ pain. NO rash or itching. GB US and labs 12/23/24 -?-?-?-?-?-?-?-?-?-?-?-?- 28w 0d 157 lb 4 oz 118/74 Nega tive -?-?-?-?-?-?-?-?-?-?-?-?- Negative 145 28 -?-?-?-?-?-?-?-?-?-?-?-?- SM- no vb lof go odf m no reugalr ctx 01/04/25 -?-?-?-?-?-?-?-?-?-?-?-?- 29w 5d 160 lb 8 oz 112/68 Nega tive -?-?-?-?-?-?-?-?-?-?-?-?- Negative 156 30 -?-?-?-?-?-?-?-?-?-?-?-?- MH-No VB, LOF. G ood FM. Has not been taking PNV. Mild anemia-take gummy PNV at night and Fe supp with OJ Qam. 01/25/25 -?-?--?-?-?-?-?-?-?-?-?-?- 32w 5d 161 lb 8 oz 123/78 Nega tive -?-?-?-?-?-?-?-?-?-?-?-?- Negative 140 32 -?-?-?-?-?-?-?-?-?-?-?-?- KW- no vb/lof/ct x. good fm. US reviewed. 02/01/25 -?-?-?-?-?-?-?-?-?-?-?-?- 33w 5d 164 lb 2 oz 121/85 Nega tive -?-?-?-?-?-?-?-?-?-?-?-?- Negative 135 34 -?-?-?-?-?-?-?-?-?-?-?-?- KW- no vb/lof/ct x. good fm. US scheduled for 36 weeks. compression hose for occasional episodes of dizziness. ACOG First Trimester First Trimester: Discussed Second Trimester Second Trimester: Signs and Symptoms of Labor, Selecting a care provider, Reproductive Life Planning & Contreception, Care Planning, Depression/Anxiety and Intimate Partner Violence; Discussed Tobacco Cessation Third Trimester Third Trimester: Pain Management Plans, Labor support person(s), Immediate Larc, Movement Monitoring, Signs and Symptoms of Preeclampsia and [place] Education ROS Const Reports system reviewed and no additional complaints, except as documented Eyes Reports system reviewed and no additional complaints, except as documented ENT Reports system reviewed and no additional complaints, except as documented Card Reports system reviewed and no additional complaints, except as documented Resp Reports system reviewed and no additional complaints, except as documented GI Reports system reviewed and no additional complaints, except as documented, Denies nausea and Denies vomiting Reports system reviewed and no additional complaints, except as documented Musc Reports system reviewed and no additional complaints, except as documented Skin/Breast Reports system reviewed and no additional complaints, except as documented Neuro Yes system reviewed and no additional complaints, except as documented Psych Reports system reviewed and no additional complaints, except as documented Endo Reports system reviewed and no additional complaints, except as documented Conrad/Lymph Reports system reviewed and no additional complaints, except as documented Aller/Immun Reports system reviewed and no additional complaints, except as documented Exam Const General: cooperative, healthy appearing and no acute distress Orientation: alert, awake and oriented x3 Neck Neck: normal visual inspection and full ROM Resp Effort & Inspection: normal respiratory effort, able to speak in complete sentences and symmetric chest movement GI Inspection: normal to inspection Palpation: soft and other Other: gravid Skin General: no rashes or lesions noted Neuro General: patient alert, patient awake and patient oriented x3 Cognition: normal cognition Speech: speech normal Gait: normal gait Motor: muscle tone normal throughout Extrem General: normal to inspection and full ROM Psych Appearance: grossly normal Mental Status: mental status grossly normal Mood: congruent mood Affect: normal affect Speech and Movement: speech and movement normal Attitude: cooperative Thought Process: normal Thought Content: normal Judgment: judgment good Results POC Urinalysis 2 Dip (Clinic) Office Urine Glucose Negative Last Edit by Annmarie Horta on 02/01/25 14:58 Office Urine Protein Negative Last Edit by Annmarie Horta on 02/01/25 14:58 Coding Level of Care Code Off vis,est,level 3 Diagnoses Anemia affecting in third trimester O99.013 Trimester: third trimester Exposure to parvovirus Z20.828 Abnormal ultrasound O28.3 History of gestational hypertension Z87.59 Supervision of high risk in third trimester O09.93 Trimester: third trimester 33 weeks gestation of Z3A.33 Weeks of gestation: 33 weeks Asthma J45.909 Assessment and Plan Assessment and Plan (1) Anemia affecting : Status: Acute Qualifiers: Trimester: third trimester Qualified Code(s): O99.013 - Anemia complicating , third trimester Comment: PO iron:was not taking vitamin due to nausea. Will take Fe in Am and a gummy PNV in evening. (2) Exposure to parvovirus: Status: Acute Comment: immunity. No new virus (3) Abnormal ultrasound: Status: Acute Comment: horseshoe kidney. normal echo. follow up growth at 32 weeks. (4) History of gestational hypertension: Status: Acute Comment: baby ASA recommended. baseline labs. (5) Supervision of high-risk : Status: Acute Qualifiers: Trimester: third trimester Qualified Code(s): O09.93 - Supervision of high risk , unspecified, third trimester Comment: [id number], PERLA 03/17/25, PC: Kia, : Markos (6) : Status: Acute Qualifiers: Weeks of gestation: 33 weeks Qualified Code(s): Z3A.33 - 33 weeks gestation of Comment: NIPT low risk, anatomy reviewed (7) Asthma: Status: Acute Comment: Childhood Orders: Orders POC Urinalysis 2 Dip (Clinic) Today Plan Details Additional Comments: ACOG trimester education reviewed and updated. see problem list details for updated plan management information and see below for orders placed atthis visit. GA appropriate handout given. 02/01/25 1521 s MARIKA> Date _ Yao Brambila CNM Cosigner Signature: Date (if applicable) CC: ~ [facility]07-28-2025 Progress note Author Yao Brambila [facility] Note Date/Time February 01, 2025 3:21 pm [facility] [address] [place] [address], [address] [place] [address] OFFICE VISIT Date of Service: 02/01/25 MR#: [id number] Acct: [id number] Name: NISSA CRAIN Rep #: [id number] : 1995 Provider: MARIKA Brambila Age/Sex: 30/F [place] [facility] [place]: Signed Intake Vital Signs 12/02/24 15:37 01/25/25 09:30 02/01/25 14:55 Height 5 ft 3 in 5 ft 3 in 5 ft 3 in Weight: 164 lb 2 oz BMI 29.0 BP 121/85 H Intake Visit Reasons: 34wk ob Chief Complaint: 34wk OB 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 Is patient in pain?: No Allergies No Known Allergies Allergy (Verified 02/01/25 14:54) Medications ?Medication ?Instructions ?Recorded ?Confirmed ?Type docosahexaenoic acid 200 mg mg PO 07/31/24 02/01/25 Hi story capsule ( DHA) ondansetron HCl 4 mg tablet 4 mg PO Q4H #60 tabs 01/0102/01/25 Rx Last Menstrual Period: 06/10/24 : No PFSH PFSH Family History Grandfather Stomach cancer Grandmother Breast cancer Social History adopted: No household members: spouse, children and other details: Pt's youger brother number of children: 1 current occupation: [employer] current occupational exposures/hazards: No pets and animals: Yes pets and animals: dog(s) history of recent travel: No sexually active: Yes Smoking Status: Never smoker alcohol intake: current alcohol intake frequency: holidays/special occasions only details: Not while substance use type: does not use well-balanced diet: daily or most days caffeine: Yes Type: carbonated beverages eating out: 1-3 times/week during the past year weight has: remained stable what type of physical activity do you participate in: none antoni/faith: None seatbelt use: always do you feel safe at home: Yes additional social history: : Martin Horton R Us History 2 Elective abortions Hx Para 1 Spontaneous abortions 0 Hx # Term Pregnancies 1 Ectopic pregnancies Hx # Pregnancies Multiple births # of living children 1 Past Pregnancies Del. Date Name GA/Weeks Outcome Route Bth Weight Gen Labor Lgth Anesthesia Del Locatn Provider FOB 04/08/22 Kia 37 live - full term 6lbs 9oz Male epidural [facility] Yana Salazar Delivery Date: 04/08/22 Last Updated by: Olive Day RN Induced for high blood pressure HPI 34wk ob Details: NISSA CRAIN is a 30 year old who presents for routine OB visit. OB Visit PERLA Calculator Estimated Delivery Date Method Current WG Current Estimate 03/17/25 LMP (Certain) 33w 5d Other Estimates 03/18/25 Ultrasound #1 33w 4d Expected Delivery Route/Plan Labor Preferences- CB/BF classes: no labor support person: Markos labor intervention preferences: [] pain management options preferred: epidural cut cord/dad catch: cord : yes PP control planned: discussed discussed possible routes of delivery and associated risks: [] special requests: [] Specific Issue/Plans Covid status: [] Flu vaccine: [] Tdap vaccine: declines Rhogam: na LARC form signed: yes Problem list reviewed and updated with the most current plan of care details and appropriate orders placed. Relevant counseling for the gestational age provided. Continue routine care and follow up unless otherwise noted in visit notes/problem list details Initial Weight: Not Recorded Date -?-?-?-?-?-?-?-?-?-?-?-?- EGA Weight BP Urine Prot -?-?-?-?-?-?-?-?-?-?-?-?- Glucose FHR FuHt Pres Dilation -?-?-?-?-?-?-?-?-?-?-?-?- Effaced St Visit Note 08/14/24 -?-?-?-?-?-?-?-?-?-?-?-?- 9w 2d 141 lb 2 oz 126/74 -?-?-?-?-?-?-?-?-?-?-?-?- 179 -?-?-?-?-?-?-?-?-?-?-?-?- SM- CRL 9w1d con s with lmp 09/11/24 -?-?-?-?-?-?-?-?-?-?-?-?- 13w 2d 143 lb 6 oz 119/78 -?-?-?-?-?-?-?-?-?-?-?-?- 159 -?-?-?-?-?-?-?-?-?-?-?--?- KW- no vb/crampi ng. US ordered. encouraged to take PNV at night KW- no vb/cramping. US order ed. encouraged to take PNV at night. NIPT today 10/08/24 -?-?-?-?-?-?-?-?--?-?-?-?- 17w 1d 146 lb 6 oz 111/74 Nega tive -?-?-?-?-?-?-?-?-?-?-?-?- Negative 153 -?-?-?-?-?-?-?-?-?-?-?-?- JV- still having nausea. estefania refilled. anatomy scan scheduled 10/2011/06/24 -?-?-?-?-?-?-?-?-?-?-?-?- 21w 2d 150 lb 120/73 Negative -?-?-?-?-?-?-?-?-?-?-?-?- Negative 155 -?-?-?-?-?-?-?-?-?-?-?-?- KW- no vb/lof/ct x. good fm reviewed US. doing well. 12/02/24 -?-?-?-?-?-?-?-?-?-?-?-?- 25w 0d 154 lb 8 oz 118/72 Nega tive -?-?-?-?-?-?-?-?-?-?-?-?- Negative 152 -?-?-?-?-?-?-?-?-?-?-?-?- MH-NO VB, LOF. G ood FM. Having off and RUQ pain. NO rash or itching. GB US and labs 12/23/24 -?-?-?-?-?-?-?-?-?-?-?-?- 28w 0d 157 lb 4 oz 118/74 Nega tive -?-?-?-?-?-?-?-?-?-?-?-?- Negative 145 28 -?-?-?-?-?-?-?-?-?-?-?-?- SM- no vb lof go odf m no reugalr ctx 01/04/25 -?-?-?-?-?-?-?-?-?-?-?-?- 29w 5d 160 lb 8 oz 112/68 Nega tive -?-?-?-?-?-?-?-?-?-?-?-?- Negative 156 30 -?-?-?-?-?-?-?-?-?-?-?-?- MH-No VB, LOF. G ood FM. Has not been taking PNV. Mild anemia-take gummy PNV at night and Fe supp with OJ Qam. 01/25/25 -?-?--?-?-?-?-?-?-?-?-?-?- 32w 5d 161 lb 8 oz 123/78 Nega tive -?-?-?-?-?-?-?-?-?-?-?-?- Negative 140 32 -?-?-?-?-?-?-?-?-?-?-?-?- KW- no vb/lof/ct x. good fm. US reviewed. 02/01/25 -?-?-?-?-?-?-?-?-?-?-?-?- 33w 5d 164 lb 2 oz 121/85 Nega tive -?-?-?-?-?-?-?-?-?-?-?-?- Negative 135 34 -?-?-?-?-?-?-?-?-?-?-?-?- KW- no vb/lof/ct x. good fm. US scheduled for 36 weeks. compression hose for occasional episodes of dizziness. ACOG First Trimester First Trimester: Discussed Second Trimester Second Trimester: Signs and Symptoms of Labor, Selecting a care provider, Reproductive Life Planning & Contreception, Care Planning, Depression/Anxiety and Intimate Partner Violence; Discussed Tobacco Cessation Third Trimester Third Trimester: Pain Management Plans, Labor support person(s), Immediate Larc, Movement Monitoring, Signs and Symptoms of Preeclampsia and Education ROS Const Reports system reviewed and no additional complaints, except as documented Eyes Reports system reviewed and no additional complaints, except as documented ENT Reports system reviewed and no additional complaints, except as documented Card Reports system reviewed and no additional complaints, except as documented Resp Reports system reviewed and no additional complaints, except as documented GI Reports system reviewed and no additional complaints, except as documented, Denies nausea and Denies vomiting Reports system reviewed and no additional complaints, except as documented Musc Reports system reviewed and no additional complaints, except as documented Skin/Breast Reports system reviewed and no additional complaints, except as documented Neuro Yes system reviewed and no additional complaints, except as documented Psych Reports system reviewed and no additional complaints, except as documented Endo Reports system reviewed and no additional complaints, except as documented Conrad/Lymph Reports system reviewed and no additional complaints, except as documented Aller/Immun Reports system reviewed and no additional complaints, except as documented Exam Const General: cooperative, healthy appearing and no acute distress Orientation: alert, awake and oriented x3 Neck Neck: normal visual inspection and full ROM Resp Effort & Inspection: normal respiratory effort, able to speak in complete sentences and symmetric chest movement GI Inspection: normal to inspection Palpation: soft and other Other: gravid Skin General: no rashes or lesions noted Neuro General: patient alert, patient awake and patient oriented x3 Cognition: normal cognition Speech: speech normal Gait: normal gait Motor: muscle tone normal throughout Extrem General: normal to inspection and full ROM Psych Appearance: grossly normal Mental Status: mental status grossly normal Mood: congruent mood Affect: normal affect Speech and Movement: speech and movement normal Attitude: cooperative Thought Process: normal Thought Content: normal Judgment: judgment good Results POC Urinalysis 2 Dip (Clinic) Office Urine Glucose Negative Last Edit by Annmarie Horta on 02/01/25 14:58 Office Urine Protein Negative Last Edit by Annmarie Horta on 02/01/25 14:58 Coding Level of Care Code Off vis,est,level 3 Diagnoses Anemia affecting in third trimester O99.013 Trimester: third trimester Exposure to parvovirus Z20.828 Abnormal ultrasound O28.3 History of gestational hypertension Z87.59 Supervision of high risk in third trimester O09.93 Trimester: third trimester 33 weeks gestation of Z3A.33 Weeks of gestation: 33 weeks Asthma J45.909 Assessment and Plan Assessment and Plan (1) Anemia affecting : Status: Acute Qualifiers: Trimester: third trimester Qualified Code(s): O99.013 - Anemia complicating , third trimester Comment: PO iron:was not taking vitamin due to nausea. Will take Fe in Am and a gummy PNV in evening. (2) Exposure to parvovirus: Status: Acute Comment: immunity. No new virus (3) Abnormal ultrasound: Status: Acute Comment: horseshoe kidney. normal echo. follow up growth at 32 weeks. (4) History of gestational hypertension: Status: Acute Comment: baby ASA recommended. baseline labs. (5) Supervision of high-risk : Status: Acute Qualifiers: Trimester: third trimester Qualified Code(s): O09.93 - Supervision of high risk , unspecified, third trimester Comment: [id number], PERLA 03/17/25, PC: Kia, : Markos (6) : Status: Acute Qualifiers: Weeks of gestation: 33 weeks Qualified Code(s): Z3A.33 - 33 weeks gestation of Comment: NIPT low risk, anatomy reviewed (7) Asthma: Status: Acute Comment: Childhood Orders: Orders POC Urinalysis 2 Dip (Clinic) Today Plan Details Additional Comments: ACOG trimester education reviewed and updated. see problem list details for updated plan management information and see below for orders placed at this visit. GA appropriate handout given. 02/01/25 1527 <Electronically signed by Yao naidu CNM> Date _ Yao Brambila CNM Cosigner Signature: Date (if applicable) CC: ~ [facility] Work Phone: [phone] Marcin Crain is here for consultation at the request of Scottie Andrea MD for: Abnormal Kidney History of Presenting Problem: History of Present Illness Nissa Crain is a 30 year old female who presents for consultation regarding a finding of a horseshoe kidney in her unborn son. renal anomaly - Routine anatomy scan identified a horseshoe kidney in her unborn son. - Finding was made during care with maternal medicine specialists. Family history of genitourinary anomalies - No family history of congenital kidney or bladder abnormalities in her other children or family members. Past Medical History: Past Medical History: Diagnosis Date Treatment Center Plan of Care Past Surgical History: Past Surgical History: Procedure Laterality Date WISDOM TOOTH EXTRACTION Family History: No family history of anomalies. Social History: Lives at home with parents. Medications: Encounter Medications[1] Allergies: Allergies[2] Review of Systems: A comprehensive review of systems was negative. No cardiac, respiratory/airway or bleeding disorders identified. Physical Exam: No physical exam conducted via video visit. Laboratory Testing: I personally reviewed all labs noted in [facility], as well as those listed below. No results found for this visit on 01/29/25. No results found for: CREATININE, BUN, NA, K, CL, CO2 No results found for: URINECULT Results Imaging: I personally reviewed and interpreted all imaging studies noted in [facility], as well as relevant imaging listed below. Assessment & Plan: Nissa was seen today for abnormal kidney. Diagnoses and all orders for this visit: Suspected anomaly, antepartum, single or unspecified fetus - AMB Referral To Urology Horseshoe kidney Horseshoe kidney in fetus Horseshoe kidney identified on ultrasound with no hydronephrosis. Condition manageable, risks include urinary reflux, UTIs, or obstruction. Further assessment based on ultrasound and symptoms. - Perform renal ultrasound within first month of life. - Monitor for changes in subsequent ultrasounds. - Discuss potential antibiotic prophylaxis if future concerns arise. No follow-ups on file. RONNA MUNSON MD January 29, 2025 [1] Outpatient Encounter Medications as of 01/29/2025 Medication Sig Dispense Refill ondansetron (ZOFRAN) 4 MG tablet Take 1 Tablet (4 mg) by mouth as needed acetaminophen (TYLENOL) tablet Take by mouth every 4 hours as needed. 0 albuterol (VENTOLIN HFA) 108 (90 BASE) MCG/ACT inhaler Inhale into the lungs every 4 hours as needed. 2 montelukast (SINGULAIR) 10 MG tablet Take by mouth daily. 6 beclomethasone (QVAR) 80 MCG/ACT inhaler Inhale into the lungs 2 times daily. 6 No facility-administered encounter medications on file as of 01/29/2025. [2] [facility] [id number] [facility] [address], [address] [place] [address] OFFICE VISIT Date of Service: 01/25/25 MR#: [id number] Acct: [id number] Name: NISSA CRAIN Rep #: [id number] : 1995 Provider: MARIKA Brambila Age/Sex: 30/F [place] [facility] [place]: Signed Intake Vital Signs 12/02/24 15:37 01/04/25 14:10 01/25/25 09:30 Height 5 ft 3 in 5 ft 3 in 5 ft 3 in Weight: 161 lb 8 oz BMI 28.5 BP 123/78 H Intake Visit Reasons: 32wk ob Chief Complaint: 32wk OB 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 Is patient in pain?: No Allergies No Known Allergies Allergy (Verified 01/25/25 09:29) Medications ?Medication ?Instructions ?Recorded ?Confirmed ?Type docosahexaenoic acid 200 mg mg PO 07/31/24 01/25/25 Hi story capsule ( DHA) ondansetron HCl 4 mg tablet 4 mg PO Q4H #60 tabs 01/0101/25/25 Rx Last Menstrual Period: 06/10/24 : No PFSH PFSH Family History Grandfather Stomach cancer Grandmother Breast cancer Social History adopted: No household members: spouse, children and other details: Pt's youger brother number of children: 1 current occupation: [employer] current occupational exposures/hazards: No pets and animals: Yes pets and animals: dog(s) history of recent travel: No sexually active: Yes Smoking Status: Never smoker alcohol intake: current alcohol intake frequency: holidays/special occasions only details: Not while substance use type: does not use well-balanced diet: daily or most days caffeine: Yes Type: carbonated beverages eating out: 1-3 times/week during the past year weight has: remained stable what type of physical activity do you participate in: none antoni/faith: None seatbelt use: always do you feel safe at home: Yes additional social history: : Martin Williamson Us History 2 Elective abortions Hx Para 1 Spontaneous abortions 0 Hx # Term Pregnancies 1 Ectopic pregnancies Hx # Pregnancies Multiple births # of living children 1 Past Pregnancies Del. Date Name GA/Weeks Outcome Route Bth Weight Gen Labor Lgth Anesthesia Del Locatn Provider FOB 04/08/22 Kia 37 live - full term 6lbs 9oz Male epidural [facility] Delivery Date: 04/08/22 Last Updated by: Olive Day RN Induced for high blood pressure HPI 32wk ob Details: NISSA CRAIN is a 30 year old who presents for routine OB visit. OB Visit PERLA Calculator Estimated Delivery Date Method Current WG Current Estimate 03/17/25 LMP (Certain) 32w 5d Other Estimates 03/18/25 Ultrasound #1 32w 4d Expected Delivery Route/Plan Labor Preferences- CB/BF classes: no labor support person: Markos labor intervention preferences: [] pain management options preferred: epidural cut cord/dad catch: cord : yes PP control planned: discussed discussed possible routes of delivery and associated risks: [] special requests: [] Specific Issue/Plans Covid status: [] Flu vaccine: [] Tdap vaccine: declines Rhogam: na LARC form signed: yes Problem list reviewed and updated with the most current plan of care details and appropriate ordersplaced. Relevant counseling for the gestational age provided. Continue routine care and follow up unless otherwise noted in visit notes/problem list details Initial Weight: Not Recorded Date -?-?-?-?-?-?-?-?-?-?-?-?- EGA Weight BP Urine Prot -?-?-?-?-?-?-?-?-?-?-?-?- Glucose FHR FuHt Pres Dilation -?-?-?-?-?-?-?-?-?-?-?-?- Effaced St Visit Note 08/14/24 -?-?-?-?-?-?-?-?-?-?-?-?- 9w 2d 141 lb 2 oz 126/74 -?-?-?-?-?-?-?-?-?-?-?-?- 179 -?-?-?-?-?-?-?-?-?-?-?-?- SM- CRL 9w1d con s with lmp 09/11/24 -?-?-?-?-?-?-?-?-?-?-?-?- 13w 2d 143 lb 6 oz 119/78 -?-?-?-?-?-?-?-?-?-?-?-?- 159 -?-?-?-?-?-?-?-?-?-?-?--?- KW- no vb/crampi ng. US ordered. encouraged to take PNV at night KW- no vb/cramping. US order ed. encouraged to take PNV at night. NIPT today 10/08/24 -?-?-?-?-?-?-?-?--?-?-?-?- 17w 1d 146 lb 6 oz 111/74 Nega tive -?-?-?-?-?-?-?-?-?-?-?-?- Negative 153 -?-?-?-?-?-?-?-?-?-?-?-?- JV- still having nausea. estefania refilled. anatomy scan scheduled 10/2011/06/24 -?-?-?-?-?-?-?-?-?-?-?-?- 21w 2d 150 lb 120/73 Negative -?-?-?-?-?-?-?-?-?-?-?-?- Negative 155 -?-?-?-?-?-?-?-?-?-?-?-?- KW- no vb/lof/ct x. good fm reviewed US. doing well. 12/02/24 -?-?-?-?-?-?-?-?-?-?-?-?- 25w 0d 154 lb 8 oz 118/72 Nega tive -?-?-?-?-?-?-?-?-?-?-?-?- Negative 152 -?-?-?-?-?-?-?-?-?-?-?-?- MH-NO VB, LOF. G ood FM. Having off and RUQ pain. NO rash or itching. GB US and labs 12/23/24 -?-?-?-?-?-?-?-?-?-?-?-?- 28w 0d 157 lb 4 oz 118/74 Nega tive -?-?-?-?-?-?-?-?-?-?-?-?- Negative 145 28 -?-?-?-?-?-?-?-?-?-?-?-?- SM- no vb lof go odf m no reugalr ctx 01/04/25 -?-?-?-?-?-?-?-?-?-?-?-?- 29w 5d 160 lb 8 oz 112/68 Nega tive -?-?-?-?-?-?-?-?-?-?-?-?- Negative 156 30 -?-?-?-?-?-?-?-?-?-?-?-?- MH-No VB, LOF. G ood FM. Has not been taking PNV. Mild anemia-take gummy PNV at night and Fe supp with OJ Qam. 01/25/25 -?-?--?-?-?-?-?-?-?-?-?-?- 32w 5d 161 lb 8 oz 123/78 Nega tive -?-?-?-?-?-?-?-?-?-?-?-?- Negative 140 32 -?-?-?-?-?-?-?-?-?-?-?-?- KW- no vb/lof/ct x. good fm. US reviewed. ACOG First Trimester First Trimester: Discussed Second Trimester Second Trimester: Signs and Symptoms of Labor, Selecting a care provider, Reproductive Life Planning & Contreception, Care Planning, Depression/Anxiety and Intimate Partner Violence; Discussed Tobacco Cessation Third Trimester Third Trimester: Pain Management Plans, Labor support person(s), Immediate Larc, Movement Monitoring, Signs and Symptoms of Preeclampsia and [place] Education ROS Const Reports system reviewed and no additional complaints, except as documented Eyes Reports system reviewed and no additional complaints, except as documented ENT Reports system reviewed and no additional complaints, except as documented Card Reports system reviewed and no additional complaints, except as documented Resp Reports system reviewed and no additional complaints, except as documented GI Reports system reviewed and no additional complaints, except as documented, Denies nausea and Denies vomiting Reports system reviewed and no additional complaints, except as documented Musc Reports system reviewed and no additional complaints, except as documented Skin/Breast Reports system reviewed and no additional complaints, except as documented Neuro Yes system reviewed and no additional complaints, except as documented Psych Reports system reviewed and no additional complaints, except as documented Endo Reports system reviewed and no additional complaints, except as documented Conrad/Lymph Reports system reviewed and no additional complaints, except as documented Aller/Immun Reports system reviewed and no additional complaints, except as documented Exam Const General: cooperative, healthy appearing and no acute distress Orientation: alert, awake and oriented x3 Neck Neck: normal visual inspection and full ROM Resp Effort & Inspection: normal respiratory effort, able to speak in complete sentences and symmetric chest movement GI Inspection: normal to inspection Palpation: soft and other Other: gravid Skin General: no rashes or lesions noted Neuro General: patient alert, patient awake and patient oriented x3 Cognition: normal cognition Speech: speech normal Gait: normal gait Motor: muscle tone normal throughout Extrem General: normal to inspection and full ROM Psych Appearance: grossly normal Mental Status: mental status grossly normal Mood: congruent mood Affect: normal affect Speech and Movement: speech and movement normal Attitude: cooperative Thought Process: normal Thought Content: normal Judgment: judgment good Results POC Urinalysis 2 Dip (Clinic) Office Urine Glucose Negative Last Edit by Annmarie Horta on 01/25/25 09:34 Office Urine Protein Negative Last Edit by Annmarie Horta on 01/25/25 09:34 Coding Level of Care Code Off vis,est,level 3 Diagnoses Anemia affecting in third trimester O99.013 Trimester: third trimester Exposure to parvovirus Z20.828 Abnormal ultrasound O28.3 History of gestational hypertension Z87.59 Supervision of high risk in third trimester O09.93 Trimester: third trimester Asthma J45.909 32 weeks gestation of Z3A.32 Weeks of gestation: 32 weeks Assessment and Plan Assessment and Plan (1) Anemia affecting : Status: Acute Qualifiers: Trimester: third trimester Qualified Code(s): O99.013 - Anemia complicating , third trimester Comment: PO iron:was not taking vitamin due to nausea. Will take Fe in Am and a gummy PNV in evening. (2) Exposure to parvovirus: Status: Acute Comment: immunity. No new virus (3) Abnormal ultrasound: Status: Acute Comment: horseshoe kidney. normal echo. follow up growth at 32 weeks. (4) History of gestational hypertension: Status: Acute Comment: baby ASA recommended. baseline labs. (5) Supervision of high-risk : Status: Acute Qualifiers: Trimester: third trimester Qualified Code(s): O09.93 - Supervision of high risk , unspecified, third trimester Comment: [id number], PERLA 03/17/25, PC: Kia, : Markos (6) Asthma: Status: Acute Comment: Childhood (7) : Status: Acute Qualifiers: Weeks of gestation: 32 weeks Qualified Code(s): Z3A.32 - 32 weeks gestation of Comment: NIPT low risk, anatomy reviewed Orders: Orders POC Urinalysis 2 Dip (Clinic) Today Plan Details Additional Comments: ACOG trimester education reviewed and updated. see problem list details for updated plan management information and see below for orders placed atthis visit. GA appropriate handout given. 01/25/25 0945 evangelista HAIRSTON> Date _ Yao Greer Signature: Date (if applicable) CC: ~ [facility]06-18-2025 [facility] [address] [place] [address], [address] [place] [address] OFFICE VISIT Date of Service: 12/23/24 MR#: [id number] Acct: [id number] Name: PARASNISSA RAE Rep #: [id number] : 1995 Provider: Dr. 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 Is patient in pain?: No Allergies No Known Allergies Allergy (Verified 12/23/24 12:58) Medications ?Medication ?Instructions ?Recorded ?Confirmed ?Type docosahexaenoic acid 200 mg mg PO 07/31/24 12/23/24 Hi story capsule ( DHA) ondansetron HCl 4 mg tablet 4 mg PO Q4H #60 tabs 10/0812/23/24 Rx Last Menstrual Period: 06/10/24 Zika: Zika virus screening: Negative : No PFSH PFSH Family History Grandfather Stomach cancer Grandmother Breast cancer Social History adopted: No household members: spouse, children and other details: Pt's youger brother number of children: 1 current occupation: [employer] current occupational exposures/hazards: No pets and animals: Yes pets and animals: dog(s) history of recent travel: No sexually active: Yes Smoking Status: Never smoker alcohol intake: current alcohol intake frequency: holidays/special occasions only details: Not while substance use type: does not use well-balanced diet: daily or most days caffeine: Yes Type: carbonated beverages eating out: 1-3 times/week during the past year weight has: remained stable what type of physical activity do you participate in: none antoni/faith: None seatbelt use: always do you feel safe at home: Yes additional social history: : Martin Williamson Us History 2 Elective abortions Hx Para 1 Spontaneous abortions 0 Hx # Term Pregnancies 1 Ectopic pregnancies Hx # Pregnancies Multiple births # of living children 1 Past Pregnancies Del. Date Name GA/Weeks Outcome Route Bth Weight Gen Labor Lgth Anesthesia Del Locatn Provider FOB 04/08/22 Kaysen 37 live - full term 6lbs 9oz Male epidural [facility] Yana Salazar Delivery Date: 04/08/22 Last Updated by: Olive Day RN Induced for high blood pressure HPI 28wk ob/glucose Details: NISSA CRAIN is a 29 year old who presents for routine OB visit. OB Visit PERLA Calculator Estimated Delivery Date Method Current WG Current Estimate 03/17/25 LMP (Certain) 28w 0d Other Estimates 03/18/25 Ultrasound #1 27w 6d Expected Delivery Route/Plan Labor Preferences- CB/BF classes: no labor support person: Markos labor intervention preferences: [] pain management options preferred: epidural cut cord/dad catch: cord : yes PP control planned: discussed discussed possible routes of delivery and associated risks: [] special requests: [] Specific Issue/Plans Covid status: [] Flu vaccine: [] Tdap vaccine: [] Rhogam: na LARC form signed: yes Problem list reviewed and updated with the most current plan of care details and appropriate ordersplaced. Relevant counseling for the gestational age provided. Continue routine care and follow up unless otherwise noted in visit notes/problem list details Initial Weight: Not Recorded Date -?-?-?-?-?-?-?-?-?-?-?-?- EGA Weight BP Urine Prot -?-?-?-?-?-?-?-?-?-?-?-?- Glucose FHR FuHt Pres Dilation -?-?-?-?-?-?-?-?-?-?-?-?- Effaced St Visit Note 08/14/24 -?-?-?-?-?-?-?-?-?-?-?-?- 9w 2d 141 lb 2 oz 126/74 -?-?-?-?-?-?-?-?-?-?--?-?- 179 -?-?-?-?-?-?-?-?-?-?-?-?- SM- CRL 9w1d con s with lmp 09/11/24 -?-?-?-?-?-?-?-?-?-?-?-?- 13w 2d 143 lb 6 oz 119/78 -?-?-?-?-?-?-?-?-?-?-?-?- 159 -?-?-?-?-?-?-?-?-?-?-?-?- KW- no vb/crampi ng. US ordered. encouraged to take PNV at night KW- no vb/cramping. US order ed. encouraged to take PNV at night. NIPT today 10/08/24 -?-?-?-?-?-?-?-?-?-?-?-?- 17w 1d 146 lb 6 oz 111/74 Nega tive -?-?-?-?-?-?-?-?-?-?-?-?- Negative 153 -?-?-?-?-?-?-?-?-?-?-?-?- JV- still having nausea. estefania refilled. anatomy scan scheduled 10/2011/06/24 -?-?-?-?-?-?-?-?-?-?-?-?- 21w 2d 150 lb 120/73 Negative -?-?-?-?-?-?-?-?-?-?-?-?- Negative 155 -?-?-?-?-?-?-?-?-?-?-?-?- KW- no vb/lof/ct x. good fm reviewed US. doing well. 12/02/24 -?-?-?-?-?-?-?-?-?-?-?-?- 25w 0d 154 lb 8 oz 118/72 Nega tive -?-?-?-?-?-?-?-?-?-?-?-?- Negative 152 -?-?-?-?-?-?-?-?-?-?-?-?- MH-NO VB, LOF. G ood FM. Having off and RUQ pain. NO rash or itching. GB US and labs 12/23/24 -?-?-?-?-?-?-?-?-?-?-?-?- 28w 0d 157 lb 4 oz 118/74 Nega tive -?-?-?-?-?-?-?-?-?-?-?-?- Negative 145 28 -?-?-?-?-?-?-?-?-?-?-?-?- SM- no vb lof go odf m no reugalr ctx ACOG First Trimester First Trimester: Discussed Second Trimester Second Trimester: Signs and Symptoms of Labor, Selecting a care provider, Reproductive Life Planning & Contreception, Care Planning, Depression/Anxiety and Intimate Partner Violence; Discussed Tobacco Cessation Third Trimester Third Trimester: Pain Management Plans, Labor support person(s), Immediate Larc, Movement Monitoring, Signs and Symptoms of Preeclampsia and Education Results POC Urinalysis 2 Dip (Clinic) Office Urine Glucose Negative Last Edit by Andre Avitia on 12/23/24 13:02 Office Urine Protein Negative Last Edit by Andre Avitia on 12/23/24 13:02 Coding Level of Care Code OB Routine Diagnoses RUQ pain R10.11 Exposure to parvovirus Z20.828 Abnormal ultrasound O28.3 History of gestational hypertension Z87.59 Supervision of high risk in second trimester O09.92 Trimester: second trimester 28 weeks gestation of Z3A.28 Weeks of gestation: 28 weeks Asthma J45.909 Assessment and Plan Assessment and Plan (1) RUQ pain: Status: Acute Comment: GB US and labs (2) Exposure to parvovirus: Status: Acute (3) Abnormal ultrasound: Status: Acute Comment: horseshoe kidney. normal echo. follow up growth at 32 weeks. (4) History of gestational hypertension: Status: Acute Comment: baby ASA recommended. baseline labs. (5) Supervision of high-risk : Status: Acute Qualifiers: Trimester: second trimester Qualified Code(s): O09.92 - Supervision of high risk , unspecified, second trimester Comment: , PERLA 03/17/25, PC: Kia, : Markos (6) : Status: Acute Qualifiers: Weeks of gestation: 28 weeks Qualified Code(s): Z3A.28 - 28 weeks gestation of Comment: NIPT low risk, anatomy reviewed (7) Asthma: Status: Acute Comment: Childhood Orders: Orders POC Urinalysis 2 Dip (Clinic) Today 12/23/24 Joe velez MD> Date _ Thelma Greer Signature: Date (if applicable) CC: ~ [facility]05-28-2025 Evaluation note* Diagnosis Onset Date Resolution Status Admit Date Abnormal ultrasound acute December 02, 2024 3:34pm Exposure to parvovirus acute Ma y 2024 3:34pm History of gestational hypertension acute December 02, 2024 3 :34pm acute December 02, 2024 3:34pm Supervision of high-risk acute December 02, 2024 3 :34pm RUQ pain resolved December 02, 2024 3:34pm Abnormal ultrasound acute December 23, 2024 12:40pm Asthma acute December 23 12:40pm Exposure to parvovirus acute Ju 2024 12:40pm History of gestational hypertension acute December 23, 2024 12:40pm acute December 23 12:40pm Supervision of high-risk acute December 23, 2024 12:40pm RUQ pain resolved December 23 12:40pm Abnormal ultrasound acute January 04, 2025 2:08pm Anemia affecting acute January 04, 2025 2:08pm Exposure to parvovirus acute Ju 2024 2:08pm History of gestational hypertension acute January 04, 2025 2:08pm acute January 04 2:08pm Supervision of high-risk acute January 04, 2025 2:08pm Abnormal ultrasound acute January 25, 2025 9:29am Anemia affecting acute January 25, 2025 9:29am Asthma acute January 25 9:29am Exposure to parvovirus acute Ju 2024 9:29am History of gestational hypertension acute January 25, 2025 9:29am acute January 25 9:29am Supervision of high-risk acute January 25, 2025 9:29am Abnormal ultrasound acute February 01, 2025 2:46pm Anemia affecting acute February 01, 2025 2:46pm Asthma acute February 01 2:46pm Exposure to parvovirus acute Ju ly 2024 2:46pm History of gestational hypertension acute February 01, 2025 2:46pm acute February 01 2:46pm Supervision of high-risk acute February 01, 2025 2:46pm Abnormal ultrasound acute February 15, 2025 3:28pm Anemia affecting acute February 15, 2025 3:28pm Asthma acute February 15, 2 025 3:28pm Exposure to parvovirus acute Au tess 2024 3:28pm History of gestational hypertension acute February 15 3:28pm acute February 15, 2 025 3:28pm Supervision of high-risk acute February 15 3:28pm Abnormal ultrasound acute February 26, 2025 3:24pm Anemia affecting acute February 26, 2025 3:24pm Asthma acute February 26, 2 025 3:24pm Exposure to parvovirus acute Au tess 2024 3:24pm History of gestational hypertension acute February 26 3:24pm acute February 26, 2 025 3:24pm Supervision of high-risk acute February 26 3:24pm Abnormal ultrasound acute March 03, 2025 2:58pm Anemia affecting acute March 03, 2025 2:58pm Exposure to parvovirus acute Au tess 2024 2:58pm History of gestational hypertension acute March 03 2:58pm acute March 03, 2 025 2:58pm Supervision of high-risk acute March 03 2:58pm Abnormal ultrasound acute March 10, 2025 2:20pm Anemia affecting acute March 10, 2025 2:20pm Asthma acute March 10, 2025 2:20pm Exposure to parvovirus acute Se pt2024 2:20pm History of gestational hypertension acute March 10, 2 025 2:20pm acute March 10, 2025 2:20pm Supervision of high-risk acute March 10, 2 025 2:20pm [facility] Work Phone: 1(743) 899-679105-28-2025 Evaluation note* Diagnosis Onset Date Resolution Status Admit Date Abnormal ultrasound acute December 02, 2024 3:34pm Exposure to parvovirus acute Ma y 2024 3:34pm History of gestational hypertension acute December 02, 2024 3 :34pm acute December 02, 2024 3:34pm Supervision of high-risk acute December 02, 2024 3 :34pm RUQ pain resolved December 02, 2024 3:34pm Abnormal ultrasound acute December 23, 2024 12:40pm Asthma acute December 23 12:40pm Exposure to parvovirus acute Ju ne 2024 12:40pm History of gestational hypertension acute December 23, 2024 12:40pm acute December 23 12:40pm Supervision of high-risk acute December 23, 2024 12:40pm RUQ pain resolved December 23 12:40pm Abnormal ultrasound acute January 04, 2025 2:08pm Anemia affecting acute January 04, 2025 2:08pm Exposure to parvovirus acute Ju ne 2024 2:08pm History of gestational hypertension acute January 04, 2025 2:08pm acute January 04 2:08pm Supervision of high-risk acute January 04, 2025 2:08pm Abnormal ultrasound acute January 25, 2025 9:29am Anemia affecting acute January 25, 2025 9:29am Asthma acute January 25 9:29am Exposure to parvovirus acute Ju ly 2024 9:29am History of gestational hypertension acute January 25, 2025 9:29am acute January 25 9:29am Supervision of high-risk acute January 25, 2025 9:29am Abnormal ultrasound acute February 01, 2025 2:46pm Anemia affecting acute February 01, 2025 2:46pm Asthma acute February 01 2:46pm Exposure to parvovirus acute Ju ly 2024 2:46pm History of gestational hypertension acute February 01, 2025 2:46pm acute February 01 2:46pm Supervision of high-risk acute February 01, 2025 2:46pm Abnormal ultrasound acute February 15, 2025 3:28pm Anemia affecting acute February 15, 2025 3:28pm Asthma acute February 15, 2 025 3:28pm Exposure to parvovirus acute Au tess 2024 3:28pm History of gestational hypertension acute February 15 3:28pm acute February 15, 2 025 3:28pm Supervision of high-risk acute February 15 3:28pm Abnormal ultrasound acute February 26, 2025 3:24pm Anemia affecting acute February 26, 2025 3:24pm Asthma acute February 26, 2 025 3:24pm Exposure to parvovirus acute Au tess 2024 3:24pm History of gestational hypertension acute February 26 3:24pm acute February 26, 2 025 3:24pm Supervision of high-risk acute February 26 3:24pm Abnormal ultrasound acute March 03, 2025 2:58pm Anemia affecting acute March 03, 2025 2:58pm Exposure to parvovirus acute Au tess 2024 2:58pm History of gestational hypertension acute March 03 2:58pm acute March 03, 2 025 2:58pm Supervision of high-risk acute March 03 2:58pm Abnormal ultrasound acute March 10, 2025 2:20pm Anemia affecting acute March 10, 2025 2:20pm Asthma acute March 10, 2025 2:20pm Exposure to parvovirus acute Se ptember 2024 2:20pm History of gestational hypertension acute March 10, 2 025 2:20pm acute March 10, 2025 2:20pm Supervision of high-risk acute March 10, 2 025 2:20pm Abnormal ultrasound acute March 17, 2025 9:16am Anemia affecting acute March 17, 2025 9:16am Asthma acute March 9:16am Exposure to parvovirus acute Se ptember 2024 9:16am History of gestational hypertension acute March 17, 2025 9:16am acute March 9:16am Supervision of high-risk acute March 17, 2025 9:16am [facility] Work Phone: 1(865) 724-837605-28-2025 [facility] [address] [place] [address], [address] [place], [place] [address] OFFICE VISIT Date of Service: 12/02/24 MR#: [id number] Acct: [id number] Name: NISSA CRAIN Rep #: [id number] : 1995 Provider: STEFANIE Avila Age/Sex: 29/F [place] [facility] [place]: Signed Intake Vital Signs 10/08/24 14:53 11/06/24 13:20 12/02/24 15:37 Height 5 ft 3 in 5 ft 3 in 5 ft 3 in Weight: 154 lb 8 oz BMI 27.3 BP 118/72 Intake Visit Reasons: 25wk ob Chief Complaint: 25 Week OB 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 Is patient in pain?: No Allergies No Known Allergies Allergy (Verified 12/02/24 15:39) Medications ?Medication ?Instructions ?Recorded ?Confirmed ?Type docosahexaenoic acid 200 mg mg PO 07/31/24 12/02/24 Hi story capsule ( DHA) ondansetron HCl 4 mg tablet 4 mg PO Q4H #60 tabs 10/0812/02/24 Rx Last Menstrual Period: 06/10/24 Zika: Zika virus screening: Negative : No PFSH PFSH Family History Grandfather Stomach cancer Grandmother Breast cancer Social History adopted: No household members: spouse, children and other details: Pt's youger brother number of children: 1 current occupation: [employer] current occupational exposures/hazards: No pets and animals: Yes pets and animals: dog(s) history of recent travel: No sexually active: Yes Smoking Status: Never smoker alcohol intake: current alcohol intake frequency: holidays/special occasions only details: Not while substance use type: does not use well-balanced diet: daily or most days caffeine: Yes Type: carbonated beverages eating out: 1-3 times/week during the past year weight has: remained stable what type of physical activity do you participate in: none antoni/faith: None seatbelt use: always do you feel safe at home: Yes additional social history: : Martin Williamson History 2 Elective abortions Hx Para 1 Spontaneous abortions 0 Hx # Term Pregnancies 1 Ectopic pregnancies Hx # Pregnancies Multiple births # of living children 1 Past Pregnancies Del. Date Name GA/Weeks Outcome Route Bth Weight Gen Labor Lgth Anesthesia Del Locatn Provider FOB 04/08/22 Kia 37 live - full term 6lbs 9oz Male epidural [facility] Yana Salazar Delivery Date: 04/08/22 Last Updated by: Olive Day RN Induced for high blood pressure HPI 25wk ob Details: NISSA CRAIN is a 29 year old who presents for routine OB visit. OB Visit PERLA Calculator Estimated Delivery Date Method Current WG Current Estimate 03/17/25 LMP (Certain) 25w 0d Other Estimates 03/18/25 Ultrasound #1 24w 6d Expected Delivery Route/Plan Labor Preferences- CB/BF classes: no labor support person: Markos labor intervention preferences: [] pain management options preferred: epidural cut cord/dad catch: cord : yes PP control planned: discussed discussed possible routes of delivery and associated risks: [] special requests: [] Specific Issue/Plans Covid status: [] Flu vaccine: [] Tdap vaccine: [] Rhogam: na LARC form signed: yes Problem list reviewed and updated with the most current plan of care details and appropriate ordersplaced. Relevant counseling for the gestational age provided. Continue routine care and follow up unless otherwise noted in visit notes/problem list details Initial Weight: Not Recorded Date -?-?-?-?-?-?--?-?-?-?-?-?- EGA Weight BP Urine Prot -?-?-?-?-?-?-?-?-?-?-?-?- Glucose FHR FuHt Pres Dilation -?-?-?-?-?-?-?-?-?-?-?-?- Effaced St Visit Note 08/14/24 -?-?-?-?-?-?-?-?-?-?-?-?- 9w 2d 141 lb 2 oz 126/74 -?-?-?-?-?-?-?-?-?-?-?-?- 179 -?-?-?-?-?-?-?-?-?-?-?-?- SM- CRL 9w1d con s with lmp 09/11/24 -?-?-?-?-?-?-?-?-?-?-?-?- 13w 2d 143 lb 6 oz 119/78 -?-?-?--?-?-?-?-?-?-?-?-?- 159 -?-?-?-?-?-?-?-?-?-?-?-?- KW- no vb/crampi ng. US ordered. encouraged to take PNV at night KW- no vb/cramping. US order ed. encouraged to take PNV at night. NIPT today 10/08/24 -?-?-?-?-?-?-?-?-?-?-?-?- 17w 1d 146 lb 6 oz 111/74 Nega tive -?-?-?-?-?-?-?-?-?-?-?-?- Negative 153 -?-?-?-?-?-?-?-?-?-?-?-?- JV- still having nausea. estefania refilled. anatomy scan scheduled 10/2011/06/24 -?-?-?-?-?-?-?-?-?-?-?-?- 21w 2d 150 lb 120/73 Negative -?-?-?-?-?-?-?-?-?-?-?-?- Negative 155 -?-?-?-?-?-?-?-?-?-?-?-?- KW- no vb/lof/ct x. good fm reviewed US. doing well. 12/02/24 -?-?-?-?-?--?-?-?-?-?-?-?- 25w 0d 154 lb 8 oz 118/72 Nega tive -?-?-?-?-?-?-?-?-?-?-?-?- Negative 152 -?-?-?-?-?-?-?-?-?-?-?-?- MH-NO VB, LOF. G ood FM. Having off and RUQ pain. NO rash or itching. GB US and labs ACOG First Trimester First Trimester: Discussed Second Trimester Second Trimester: Signs and Symptoms of Labor, Selecting a care provider, Reproductive Life Planning & Contreception, Care Planning, Depression/Anxiety and Intimate Partner Violence; Discussed Tobacco Cessation Third Trimester Third Trimester: Pain Management Plans, Labor support person(s), Immediate Larc, Movement Monitoring, Signs and Symptoms of Preeclampsia and Brisbin Education ROS Const Reports system reviewed and no additional complaints, except as documented GI Denies abdominal pain, Denies nausea and Denies vomiting Exam Const General: cooperative Nutritional Appearance: well nourished GI Palpation: soft, nontender and other (gravid) Results POC Urinalysis 2 Dip (Clinic) Office Urine Glucose Negative Last Edit by Lashonda Ribeiro on 12/02/24 15 :41 Office Urine Protein Negative Last Edit by Lashonda Ribeiro on 12/02/24 15 :41 Coding Level of Care Code Off vis,est,level 3 Diagnoses Supervision of high risk in second trimester O09.92 Trimester: second trimester RUQ pain R10.11 25 weeks gestation of Z3A.25 Weeks of gestation: 25 weeks History of gestational hypertension Z87.59 Abnormal ultrasound O28.3 Exposure to parvovirus Z20.828 Assessment and Plan Assessment and Plan (1) Supervision of high-risk : Status: Acute Qualifiers: Trimester: second trimester Qualified Code(s): O09.92 - Supervision of high risk , unspecified, second trimester Comment: , PERLA 03/17/25, PC: Jasminkayleneotoniel, : Markos (2) RUQ pain: Status: Acute Comment: GB US and labs (3) : Status: Acute Qualifiers: Weeks of gestation: 25 weeks Qualified Code(s): Z3A.25 - 25 weeks gestation of Comment: NIPT low risk, anatomy reviewed (4) History of gestational hypertension: Status: Acute Comment: baby ASA recommended. baseline labs. (5) Abnormal ultrasound: Status: Acute Comment: horseshoe kidney. normal echo. follow up growth at 32 weeks. (6) Exposure to parvovirus: Status: Acute Orders: Orders POC Urinalysis 2 Dip (Clinic) Today CBC W/Diff, Automated Today O09.90 - Supervision of high risk , unspecified, unspecified trimester Glucose Challenge Gest 1H 50g Today O09.90 - Supervision of high risk , unspecified, unspecified trimester, Z13.1 - Encounter for screening for diabetes mellitus HIV Today O09.90 - Supervision of high risk , unspecified, unspecified trimester Syphilis Antibodies Today O09.90 - Supervision of high risk , unspecified, unspecified trimester Plan problem list reviewed and updated for most current plan of care and appropriate orders placed. Relevant counseling for the gestational age appropriate provided and ACOG education checklist updated. Continue routine care and follow up. 12/02/24 1558 s REFINERY OPERATOR VISBREAKING STEFANIE> Date _ Andre Yeungigner Signature: Date (if applicable) CC: ~ [facility]05-28-2025 Progress note Author Andre Avila [facility] Note Date/Time December 02, 2024 3:58p [facility] [address], [address] [place] [address] OFFICE VISIT Date of Service: 12/02/24 MR#: [id number] Acct: [id number] Name: NISSA CRAIN Rep #: [id number] : 1995 Provider: STEFANIE vAila Age/Sex: 29/F [place] [facility] [place]: Signed Intake Vital Signs 10/08/24 14:53 11/06/24 13:20 12/02/24 15:37 Height 5 ft 3 in 5 ft 3 in 5 ft 3 in Weight: 154 lb 8 oz BMI 27.3 BP 118/72 Intake Visit Reasons: 25wk ob Chief Complaint: 25 Week OB 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 Is patient in pain?: No Allergies No Known Allergies Allergy (Verified 12/02/24 15:39) Medications ?Medication ?Instructions ?Recorded ?Confirmed ?Type docosahexaenoic acid 200 mg mg PO 07/31/24 12/02/24 Hi story capsule ( DHA) ondansetron HCl 4 mg tablet 4 mg PO Q4H #60 tabs 10/0812/02/24 Rx Last Menstrual Period: 06/10/24 Zika: Zika virus screening: Negative : No PFSH PFSH Family History Grandfather Stomach cancer Grandmother Breast cancer Social History adopted: No household members: spouse, children and other details: Pt's madonnager brother number of children: 1 current occupation: [employer] current occupational exposures/hazards: No pets and animals: Yes pets and animals: dog(s) history of recent travel: No sexually active: Yes Smoking Status: Never smoker alcohol intake: current alcohol intake frequency: holidays/special occasions only details: Not while substance use type: does not use well-balanced diet: daily or most days caffeine: Yes Type: carbonated beverages eating out: 1-3 times/week during the past year weight has: remained stable what type of physical activity do you participate in: none antoni/faith: None seatbelt use: always do you feel safe at home: Yes additional social history: : Martin Williamson Us History 2 Elective abortions Hx Para 1 Spontaneous abortions 0 Hx # Term Pregnancies 1 Ectopic pregnancies Hx # Pregnancies Multiple births # of living children 1 Past Pregnancies Del. Date Name GA/Weeks Outcome Route Bth Weight Infant Gen Labor Lgth Anesthesia Del Locatn Provider FOB 04/08/22 Najmaotoniel 37 live - full term 6lbs 9oz Male epidural [facility] Delivery Date: 04/08/22 Last Updated by: Olive Day RN Induced for high blood pressure HPI 25wk ob Details: NISSA CRAIN is a 29 year old who presents for routine OB visit. OB Visit PERLA Calculator Estimated Delivery Date Method Current WG Current Estimate 03/17/25 LMP (Certain) 25w 0d Other Estimates 03/18/25 Ultrasound #1 24w 6d Expected Delivery Route/Plan Labor Preferences- CB/BF classes: no labor support person: Markos labor intervention preferences: [] pain management options preferred: epidural cut cord/dad catch: cord : yes PP control planned: discussed discussed possible routes of delivery and associated risks: [] special requests: [] Specific Issue/Plans Covid status: [] Flu vaccine: [] Tdap vaccine: [] Rhogam: na LARC form signed: yes Problem list reviewed and updated with the most current plan of care details and appropriate orders placed. Relevant counseling for the gestational age provided. Continue routine care and follow up unless otherwise noted in visit notes/problem list details Initial Weight: Not Recorded Date -?-?-?-?-?-?--?-?-?-?-?-?- EGA Weight BP Urine Prot -?-?-?-?-?-?-?-?-?-?-?-?- Glucose FHR FuHt Pres Dilation -?-?-?-?-?-?-?-?-?-?-?-?- Effaced St Visit Note 08/14/24 -?-?-?-?-?-?-?-?-?-?-?-?- 9w 2d 141 lb 2 oz 126/74 -?-?-?-?-?-?-?-?-?-?-?-?- 179 -?-?-?-?-?-?-?-?-?-?-?-?- SM- CRL 9w1d con s with lmp 09/11/24 -?-?-?-?-?-?-?-?-?-?-?-?- 13w 2d 143 lb 6 oz 119/78 -?-?-?--?-?-?-?-?-?-?-?-?- 159 -?-?-?-?-?-?-?-?-?-?-?-?- KW- no vb/crampi ng. US ordered. encouraged to take PNV at night KW- no vb/cramping. US order ed. encouraged to take PNV at night. NIPT today 10/08/24 -?-?-?-?-?-?-?-?-?-?-?-?- 17w 1d 146 lb 6 oz 111/74 Nega tive -?-?-?-?-?-?-?-?-?-?-?-?- Negative 153 -?-?-?-?-?-?-?-?-?-?-?-?- JV- still having nausea. estefania refilled. anatomy scan scheduled 10/2011/06/24 -?-?-?-?-?-?-?-?-?-?-?-?- 21w 2d 150 lb 120/73 Negative -?-?-?-?-?-?-?-?-?-?-?-?- Negative 155 -?-?-?-?-?-?-?-?-?-?-?-?- KW- no vb/lof/ct x. good fm reviewed US. doing well. 12/02/24 -?-?-?-?-?--?-?-?-?-?-?-?- 25w 0d 154 lb 8 oz 118/72 Nega tive -?-?-?-?-?-?-?-?-?-?-?-?- Negative 152 -?-?-?-?-?-?-?-?-?-?-?-?- MH-NO VB, LOF. G ood FM. Having off and RUQ pain. NO rash or itching. GB US and labs ACOG First Trimester First Trimester: Discussed Second Trimester Second Trimester: Signs and Symptoms of Labor, Selecting a care provider, Reproductive Life Planning & Contreception, Care Planning, Depression/Anxiety and Intimate Partner Violence; Discussed Tobacco Cessation Third Trimester Third Trimester: Pain Management Plans, Labor support person(s), Immediate Larc, Movement Monitoring, Signs and Symptoms of Preeclampsia and Brisbin Education ROS Const Reports system reviewed and no additional complaints, except as documented GI Denies abdominal pain, Denies nausea and Denies vomiting Exam Const General: cooperative Nutritional Appearance: well nourished GI Palpation: soft, nontender and other (gravid) Results POC Urinalysis 2 Dip (Clinic) Office Urine Glucose Negative Last Edit by Lashonda Ribeiro on 12/02/24 15 :41 Office Urine Protein Negative Last Edit by Lashonda Ribeiro on 12/02/24 15 :41 Coding Level of Care Code Off vis,est,level 3 Diagnoses Supervision of high risk in second trimester O09.92 Trimester: second trimester RUQ pain R10.11 25 weeks gestation of Z3A.25 Weeks of gestation: 25 weeks History of gestational hypertension Z87.59 Abnormal ultrasound O28.3 Exposure to parvovirus Z20.828 Assessment and Plan Assessment and Plan (1) Supervision of high-risk : Status: Acute Qualifiers: Trimester: second trimester Qualified Code(s): O09.92 - Supervision of high risk , unspecified, second trimester Comment: , PERLA 03/17/25, PC: Kia, : Markos (2) RUQ pain: Status: Acute Comment: GB US and labs (3) : Status: Acute Qualifiers: Weeks of gestation: 25 weeks Qualified Code(s): Z3A.25 - 25 weeks gestation of Comment: NIPT low risk, anatomy reviewed (4) History of gestational hypertension: Status: Acute Comment: baby ASA recommended. baseline labs. (5) Abnormal ultrasound: Status: Acute Comment: horseshoe kidney. normal echo. follow up growth at 32 weeks. (6) Exposure to parvovirus: Status: Acute Orders: Orders POC Urinalysis 2 Dip (Clinic) Today CBC W/Diff, Automated Today O09.90 - Supervision of high risk , unspecified, unspecified trimester Glucose Challenge Gest 1H 50g Today O09.90 - Supervision of high risk , unspecified, unspecified trimester, Z13.1 - Encounter for screening for diabetes mellitus HIV Today O09.90 - Supervision of high risk , unspecified, unspecified trimester Syphilis Antibodies Today O09.90 - Supervision of high risk , unspecified, unspecified trimester Plan problem list reviewed and updated for most current plan of care and appropriate orders placed. Relevant counseling for the gestational age appropriate provided and ACOG education checklist updated. Continue routine care and follow up. 12/02/24 4426 <Electronically signed by Andre naidu NP REFINERY OPERATOR VISBREAKING-C> Date _ Andre Avila NP REFINERY OPERATOR VISBREAKING-C Cosigner Signature: Date (if applicable) CC: ~ [facility] Work Phone: 1(206) 767-550105-02-2025 Evaluation note* Diagnosis Onset Date Resolution Status Admit Date Abnormal ultrasound acute November 06, 2024 1:15pm Asthma acute November 06, 2024 1:15pm History of gestational hypertension acute November 06, 2024 1: 15pm acute November 06, 2024 1:15pm Supervision of high-risk acute November 06, 2024 1: 15pm Abnormal ultrasound acute December 02, 2024 3:34pm Exposure to parvovirus acute Ma y 2024 3:34pm History of gestational hypertension acute December 02, 2024 3 :34pm acute December 02, 2024 3:34pm Supervision of high-risk acute December 02, 2024 3 :34pm RUQ pain resolved December 02, 2024 3:34pm Abnormal ultrasound acute December 23, 2024 12:40pm Asthma acute December 23 12:40pm Exposure to parvovirus acute Ju 2024 12:40pm History of gestational hypertension acute December 23, 2024 12:40pm acute December 23 12:40pm Supervision of high-risk acute December 23, 2024 12:40pm RUQ pain resolved December 23 12:40pm Abnormal ultrasound acute January 04, 2025 2:08pm Anemia affecting acute January 04, 2025 2:08pm Exposure to parvovirus acute Ju 2024 2:08pm History of gestational hypertension acute January 04, 2025 2:08pm acute January 04 2:08pm Supervision of high-risk acute January 04, 2025 2:08pm Abnormal ultrasound acute January 25, 2025 9:29am Anemia affecting acute January 25, 2025 9:29am Asthma acute January 25 9:29am Exposure to parvovirus acute Ju 2024 9:29am History of gestational hypertension acute January 25, 2025 9:29am acute January 25 9:29am Supervision of high-risk acute January 25, 2025 9:29am Abnormal ultrasound acute February 01, 2025 2:46pm Anemia affecting acute February 01, 2025 2:46pm Asthma acute February 01 2:46pm Exposure to parvovirus acute Ju ly 2024 2:46pm History of gestational hypertension acute February 01, 2025 2:46pm acute February 01 2:46pm Supervision of high-risk acute February 01, 2025 2:46pm Abnormal ultrasound acute February 15, 2025 3:28pm Anemia affecting acute February 15, 2025 3:28pm Asthma acute February 15, 2 025 3:28pm Exposure to parvovirus acute Au 2024 3:28pm History of gestational hypertension acute February 15 3:28pm acute February 15, 2 025 3:28pm Supervision of high-risk acute February 15 3:28pm [facility] Work Phone: 1(682) 954-125405-02-2025 Evaluation note* Diagnosis Onset Date Resolution Status Admit Date Abnormal ultrasound acute November 06, 2024 1:15pm Asthma acute November 06, 2024 1:15pm History of gestational hypertension acute November 06, 2024 1: 15pm acute November 06, 2024 1:15pm Supervision of high-risk acute November 06, 2024 1: 15pm Abnormal ultrasound acute December 02, 2024 3:34pm Exposure to parvovirus acute Ma y 2024 3:34pm History of gestational hypertension acute December 02, 2024 3 :34pm acute December 02, 2024 3:34pm Supervision of high-risk acute December 02, 2024 3 :34pm RUQ pain resolved December 02, 2024 3:34pm Abnormal ultrasound acute December 23, 2024 12:40pm Asthma acute December 23 12:40pm Exposure to parvovirus acute Ju ne 2024 12:40pm History of gestational hypertension acute December 23, 2024 12:40pm acute December 23 12:40pm Supervision of high-risk acute December 23, 2024 12:40pm RUQ pain resolved December 23 12:40pm Abnormal ultrasound acute January 04, 2025 2:08pm Anemia affecting acute January 04, 2025 2:08pm Exposure to parvovirus acute Ju ne 2024 2:08pm History of gestational hypertension acute January 04, 2025 2:08pm acute January 04 2:08pm Supervision of high-risk acute January 04, 2025 2:08pm Abnormal ultrasound acute January 25, 2025 9:29am Anemia affecting acute January 25, 2025 9:29am Asthma acute January 25 9:29am Exposure to parvovirus acute Ju ly 2024 9:29am History of gestational hypertension acute January 25, 2025 9:29am acute January 25 9:29am Supervision of high-risk acute January 25, 2025 9:29am Abnormal ultrasound acute February 01, 2025 2:46pm Anemia affecting acute February 01, 2025 2:46pm Asthma acute February 01 2:46pm Exposure to parvovirus acute Ju ly 2024 2:46pm History of gestational hypertension acute February 01, 2025 2:46pm acute February 01 2:46pm Supervision of high-risk acute February 01, 2025 2:46pm Abnormal ultrasound acute February 15, 2025 3:28pm Anemia affecting acute February 15, 2025 3:28pm Asthma acute February 15, 2 025 3:28pm Exposure to parvovirus acute Au tess 2024 3:28pm History of gestational hypertension acute February 15 3:28pm acute February 15, 2 025 3:28pm Supervision of high-risk acute February 15 3:28pm Abnormal ultrasound acute February 26, 2025 3:24pm Anemia affecting acute February 26, 2025 3:24pm Asthma acute February 26, 2 025 3:24pm Exposure to parvovirus acute Au tess 2024 3:24pm History of gestational hypertension acute February 26 3:24pm acute February 26, 2 025 3:24pm Supervision of high-risk acute February 26 3:24pm [facility] Work Phone: 1(466) 561-546905-02-2025 Evaluation note* Diagnosis Onset Date Resolution Status Admit Date Abnormal ultrasound acute November 06, 2024 1:15pm Asthma acute November 06, 2024 1:15pm History of gestational hypertension acute November 06, 2024 1: 15pm acute November 06, 2024 1:15pm Supervision of high-risk acute November 06, 2024 1: 15pm Abnormal ultrasound acute December 02, 2024 3:34pm Exposure to parvovirus acute Ma y 2024 3:34pm History of gestational hypertension acute December 02, 2024 3 :34pm acute December 02, 2024 3:34pm Supervision of high-risk acute December 02, 2024 3 :34pm RUQ pain resolved December 02, 2024 3:34pm Abnormal ultrasound acute December 23, 2024 12:40pm Asthma acute December 23 12:40pm Exposure to parvovirus acute Ju ne 2024 12:40pm History of gestational hypertension acute December 23, 2024 12:40pm acute December 23 12:40pm Supervision of high-risk acute December 23, 2024 12:40pm RUQ pain resolved December 23 12:40pm Abnormal ultrasound acute January 04, 2025 2:08pm Anemia affecting acute January 04, 2025 2:08pm Exposure to parvovirus acute Ju ne 2024 2:08pm History of gestational hypertension acute January 04, 2025 2:08pm acute January 04 2:08pm Supervision of high-risk acute January 04, 2025 2:08pm Abnormal ultrasound acute January 25, 2025 9:29am Anemia affecting acute January 25, 2025 9:29am Asthma acute January 25 9:29am Exposure to parvovirus acute Ju ly 2024 9:29am History of gestational hypertension acute January 25, 2025 9:29am acute January 25 9:29am Supervision of high-risk acute January 25, 2025 9:29am Abnormal ultrasound acute February 01, 2025 2:46pm Anemia affecting acute February 01, 2025 2:46pm Asthma acute February 01 2:46pm Exposure to parvovirus acute Ju ly 2024 2:46pm History of gestational hypertension acute February 01, 2025 2:46pm acute February 01 2:46pm Supervision of high-risk acute February 01, 2025 2:46pm Abnormal ultrasound acute February 15, 2025 3:28pm Anemia affecting acute February 15, 2025 3:28pm Asthma acute February 15, 2 025 3:28pm Exposure to parvovirus acute Au tess 2024 3:28pm History of gestational hypertension acute February 15 3:28pm acute February 15, 2 025 3:28pm Supervision of high-risk acute February 15 3:28pm Abnormal ultrasound acute February 26, 2025 3:24pm Anemia affecting acute February 26, 2025 3:24pm Asthma acute February 26, 2 025 3:24pm Exposure to parvovirus acute Au tess 2024 3:24pm History of gestational hypertension acute February 26 3:24pm acute February 26, 2 025 3:24pm Supervision of high-risk acute February 26 3:24pm Abnormal ultrasound acute March 03, 2025 2:58pm Anemia affecting acute March 03, 2025 2:58pm Asthma acute March 03, 2 025 2:58pm Exposure to parvovirus acute Au tess 2024 2:58pm History of gestational hypertension acute March 03 2:58pm acute March 03, 2 025 2:58pm Supervision of high-risk acute March 03 2:58pm [facility] Work Phone: 1(775) 381-697805-02-2025 Evaluation note* Diagnosis Onset Date Resolution Status Admit Date Abnormal ultrasound acute November 06, 2024 1:15pm Asthma acute November 06, 2024 1:15pm History of gestational hypertension acute November 06, 2024 1: 15pm acute November 06, 2024 1:15pm Supervision of high-risk acute November 06, 2024 1: 15pm Abnormal ultrasound acute December 02, 2024 3:34pm Exposure to parvovirus acute Ma y 2024 3:34pm History of gestational hypertension acute December 02, 2024 3 :34pm acute December 02, 2024 3:34pm Supervision of high-risk acute December 02, 2024 3 :34pm RUQ pain resolved December 02, 2024 3:34pm Abnormal ultrasound acute December 23, 2024 12:40pm Asthma acute December 23 12:40pm Exposure to parvovirus acute Ju ne 2024 12:40pm History of gestational hypertension acute December 23, 2024 12:40pm acute December 23 12:40pm Supervision of high-risk acute December 23, 2024 12:40pm RUQ pain resolved December 23 12:40pm Abnormal ultrasound acute January 04, 2025 2:08pm Anemia affecting acute January 04, 2025 2:08pm Exposure to parvovirus acute Ju ne 2024 2:08pm History of gestational hypertension acute January 04, 2025 2:08pm acute January 04 2:08pm Supervision of high-risk acute January 04, 2025 2:08pm Abnormal ultrasound acute January 25, 2025 9:29am Anemia affecting acute January 25, 2025 9:29am Asthma acute January 25 9:29am Exposure to parvovirus acute Ju ly 2024 9:29am History of gestational hypertension acute January 25, 2025 9:29am acute January 25 9:29am Supervision of high-risk acute January 25, 2025 9:29am Abnormal ultrasound acute February 01, 2025 2:46pm Anemia affecting acute February 01, 2025 2:46pm Asthma acute February 01 2:46pm Exposure to parvovirus acute Ju ly 2024 2:46pm History of gestational hypertension acute February 01, 2025 2:46pm acute February 01 2:46pm Supervision of high-risk acute February 01, 2025 2:46pm Abnormal ultrasound acute February 15, 2025 3:28pm Anemia affecting acute February 15, 2025 3:28pm Asthma acute February 15, 2 025 3:28pm Exposure to parvovirus acute Au tess 2024 3:28pm History of gestational hypertension acute February 15 3:28pm acute February 15, 2 025 3:28pm Supervision of high-risk acute February 15 3:28pm Abnormal ultrasound acute February 26, 2025 3:24pm Anemia affecting acute February 26, 2025 3:24pm Asthma acute February 26, 2 025 3:24pm Exposure to parvovirus acute Au tess 2024 3:24pm History of gestational hypertension acute February 26 3:24pm acute February 26, 2 025 3:24pm Supervision of high-risk acute February 26 3:24pm Abnormal ultrasound acute March 03, 2025 2:58pm Anemia affecting acute March 03, 2025 2:58pm Exposure to parvovirus acute Au tess 2024 2:58pm History of gestational hypertension acute March 03 2:58pm acute March 03, 025 2:58pm Supervision of high-risk acute March 03 2:58pm [facility] Work Phone: 1([phone]) 847-218004-03-2025 Evaluation note* Diagnosis Onset Date Resolution Status Admit Date Asthma acute October 08 2:10pm History of gestational hypertension acute October 08, 2024 2:10pm acute October 08 2:10pm Supervision of high-risk acute October 08, 2024 2:10pm Abnormal ultrasound acute November 06, 2024 1:15pm Asthma acute November 06, 2024 1:15pm History of gestational hypertension acute November 06, 2024 1: 15pm acute November 06, 2024 1:15pm Supervision of high-risk acute November 06, 2024 1: 15pm Abnormal ultrasound acute December 02, 2024 3:34pm Exposure to parvovirus acute Ma y 2024 3:34pm History of gestational hypertension acute December 02, 2024 3 :34pm acute December 02, 2024 3:34pm Supervision of high-risk acute December 02, 2024 3 :34pm RUQ pain resolved December 02, 2024 3:34pm Abnormal ultrasound acute December 23, 2024 12:40pm Asthma acute December 23 12:40pm Exposure to parvovirus acute Ju ne 2024 12:40pm History of gestational hypertension acute December 23, 2024 12:40pm acute December 23 12:40pm Supervision of high-risk acute December 23, 2024 12:40pm RUQ pain resolved December 23 12:40pm Abnormal ultrasound acute January 04, 2025 2:08pm Anemia affecting acute January 04, 2025 2:08pm Exposure to parvovirus acute Ju ne 2024 2:08pm History of gestational hypertension acute January 04, 2025 2:08pm acute January 04 2:08pm Supervision of high-risk acute January 04, 2025 2:08pm Abnormal ultrasound acute January 25, 2025 9:29am Anemia affecting acute January 25, 2025 9:29am Asthma acute January 25 9:29am Exposure to parvovirus acute Ju 2024 9:29am History of gestational hypertension acute January 25, 2025 9:29am acute January 25 9:29am Supervision of high-risk acute January 25, 2025 9:29am [employer] Work Phone: 1(932) 606-630404-03-2025 Evaluation note* Diagnosis Onset Date Resolution Status Admit Date Asthma acute October 08 2:10pm History of gestational hypertension acute October 08, 2024 2:10pm acute October 08 2:10pm Supervision of high-risk acute October 08, 2024 2:10pm Abnormal ultrasound acute November 06, 2024 1:15pm Asthma acute November 06, 2024 1:15pm History of gestational hypertension acute November 06, 2024 1: 15pm acute November 06, 2024 1:15pm Supervision of high-risk acute November 06, 2024 1: 15pm Abnormal ultrasound acute December 02, 2024 3:34pm Exposure to parvovirus acute Ma y 2024 3:34pm History of gestational hypertension acute December 02, 2024 3 :34pm acute December 02, 2024 3:34pm Supervision of high-risk acute December 02, 2024 3 :34pm RUQ pain resolved December 02, 2024 3:34pm Abnormal ultrasound acute December 23, 2024 12:40pm Asthma acute December 23 12:40pm Exposure to parvovirus acute Ju ne 2024 12:40pm History of gestational hypertension acute December 23, 2024 12:40pm acute December 23 12:40pm Supervision of high-risk acute December 23, 2024 12:40pm RUQ pain resolved December 23 12:40pm Abnormal ultrasound acute January 04, 2025 2:08pm Anemia affecting acute January 04, 2025 2:08pm Exposure to parvovirus acute Ju ne 2024 2:08pm History of gestational hypertension acute January 04, 2025 2:08pm acute January 04 2:08pm Supervision of high-risk acute January 04, 2025 2:08pm Abnormal ultrasound acute January 25, 2025 9:29am Anemia affecting acute January 25, 2025 9:29am Asthma acute January 25 9:29am Exposure to parvovirus acute Ju 2024 9:29am History of gestational hypertension acute January 25, 2025 9:29am acute January 25 9:29am Supervision of high-risk acute January 25, 2025 9:29am Abnormal ultrasound acute February 01, 2025 2:46pm Anemia affecting acute February 01, 2025 2:46pm Asthma acute February 01 2:46pm Exposure to parvovirus acute Ju ly 2024 2:46pm History of gestational hypertension acute February 01, 2025 2:46pm acute February 01 2:46pm Supervision of high-risk acute February 01, 2025 2:46pm [employer] [facility] Work Phone: 1([phone]) 258-379703-07-2025 Evaluation note* Diagnosis Onset Date Resolution Status Admit Date Asthma acute September 11 9:52am History of gestational hypertension acute September 11, 2024 9:52am acute September 11 9:52am Supervision of high-risk acute September 11, 2024 9:52am Asthma acute October 08 2:10pm History of gestational hypertension acute October 08, 2024 2:10pm acute October 08 2:10pm Supervision of high-risk acute October 08, 2024 2:10pm Abnormal ultrasound acute November 06, 2024 1:15pm Asthma acute November 06, 2024 1:15pm History of gestational hypertension acute November 06, 2024 1: 15pm acute November 06, 2024 1:15pm Supervision of high-risk acute November 06, 2024 1: 15pm Abnormal ultrasound acute December 02, 2024 3:34pm Exposure to parvovirus acute Ma y 2024 3:34pm History of gestational hypertension acute December 02, 2024 3 :34pm acute December 02, 2024 3:34pm RUQ pain acute December 02, 2024 3:34pm Supervision of high-risk acute December 02, 2024 3 :34pm Abnormal ultrasound acute December 23, 2024 12:40pm Asthma acute December 23 12:40pm Exposure to parvovirus acute Ju ne 2024 12:40pm History of gestational hypertension acute December 23, 2024 12:40pm acute December 23 12:40pm RUQ pain acute December 23 12:40pm Supervision of high-risk acute December 23, 2024 12:40pm [employer] [facility] Work Phone: [phone] 916-600203-07-2025 Evaluation note* Diagnosis Onset Date Resolution Status Admit Date Asthma acute September 11 9:52am History of gestational hypertension acute September 11, 2024 9:52am acute September 11 9:52am Supervision of high-risk acute September 11, 2024 9:52am Asthma acute October 08 2:10pm History of gestational hypertension acute October 08, 2024 2:10pm acute October 08 2:10pm Supervision of high-risk acute October 08, 2024 2:10pm Abnormal ultrasound acute November 06, 2024 1:15pm Asthma acute November 06, 2024 1:15pm History of gestational hypertension acute November 06, 2024 1: 15pm acute November 06, 2024 1:15pm Supervision of high-risk acute November 06, 2024 1: 15pm Abnormal ultrasound acute December 02, 2024 3:34pm Exposure to parvovirus acute Ma y 2024 3:34pm History of gestational hypertension acute December 02, 2024 3 :34pm acute December 02, 2024 3:34pm Supervision of high-risk acute December 02, 2024 3 :34pm RUQ pain resolved December 02, 2024 3:34pm Abnormal ultrasound acute December 23, 2024 12:40pm Asthma acute December 23 12:40pm Exposure to parvovirus acute Ju ne 2024 12:40pm History of gestational hypertension acute December 23, 2024 12:40pm acute December 23 12:40pm Supervision of high-risk acute December 23, 2024 12:40pm RUQ pain resolved December 23 12:40pm Abnormal ultrasound acute January 04, 2025 2:08pm Anemia affecting acute January 04, 2025 2:08pm Exposure to parvovirus acute Ju ne 2024 2:08pm History of gestational hypertension acute January 04, 2025 2:08pm acute January 04 2:08pm Supervision of high-risk acute January 04, 2025 2:08pm RUQ pain resolved January 04 2:08pm [facility] Work Phone: 1([phone]) 776-172602-07-2025 Evaluation note* Diagnosis Onset Date Resolution Status Admit Date Asthma acute August 14, 2024 2:08pm History of gestational hypertension acute August 14 2:08pm acute August 14, 2024 2:08pm Supervision of high-risk acute August 14 2:08pm Asthma acute September 11 9:52am History of gestational hypertension acute September 11, 2024 9:52am acute September 11 9:52am Supervision of high-risk acute September 11, 2024 9:52am [facility] Work Phone: 1([phone]) 291-863502-07-2025 Evaluation note* Diagnosis Onset Date Resolution Status Admit Date Asthma acute August 14, 2024 2:08pm History of gestational hypertension acute August 14 2:08pm acute August 14, 2024 2:08pm Supervision of high-risk acute August 14 2:08pm Asthma acute September 11 9:52am History of gestational hypertension acute September 11, 2024 9:52am acute September 11 9:52am Supervision of high-risk acute September 11, 2024 9:52am Asthma acute October 08 2:10pm History of gestational hypertension acute October 08, 2024 2:10pm acute October 08 2:10pm Supervision of high-risk acute October 08, 2024 2:10pm Abnormal ultrasound acute November 06, 2024 1:15pm Asthma acute November 06, 2024 1:15pm History of gestational hypertension acute November 06, 2024 1: 15pm acute November 06, 2024 1:15pm Supervision of high-risk acute November 06, 2024 1: 15pm [facility] Work Phone: 1(851) 797-438902-07-2025 Evaluation note* Diagnosis Onset Date Resolution Status Admit Date Asthma acute August 14, 2024 2:08pm History of gestational hypertension acute August 14 2:08pm acute August 14, 2024 2:08pm Supervision of high-risk acute August 14 2:08pm Asthma acute September 11 9:52am History of gestational hypertension acute September 11, 2024 9:52am acute September 11 9:52am Supervision of high-risk acute September 11, 2024 9:52am Asthma acute October 08 2:10pm History of gestational hypertension acute October 08, 2024 2:10pm acute October 08 2:10pm Supervision of high-risk acute October 08, 2024 2:10pm Abnormal ultrasound acute November 06, 2024 1:15pm Asthma acute November 06, 2024 1:15pm History of gestational hypertension acute November 06, 2024 1: 15pm acute November 06, 2024 1:15pm Supervision of high-risk acute November 06, 2024 1: 15pm Abnormal ultrasound acute December 02, 2024 3:34pm Exposure to parvovirus acute 2024 3:34pm History of gestational hypertension acute December 02, 2024 3 :34pm acute December 02, 2024 3:34pm RUQ pain acute December 02, 2024 3:34pm Supervision of high-risk acute December 02, 2024 3 :34pm [facility] Work Phone: [phone] 550-232402-07-2025 NotePap Smear Specimen AdequacyFebr2024 5:08pmComment.Satisfactory for evaluation. Endocervical and/or squamous metaplasticcells (endocervical component)are present.[facility] INTERFACED A#[id number] Health St. Charles HospitalComment on above:Satisfactory for evaluation. Endocervical and/or squamous metaplasticcells (endocervical component)are present.07-29-2024 History of Present illness Narrative* Padmini Sosa, INDUSTRIAL PHARMACIST-PROBATION MANAGER - 07/29/2024 5:15 PM EST [facility] NOTE: Name: Nissa Crain, 29 y.o. CSN:[id number] PCP: Aster Frank, DO ALL: No Known Allergies History: Chief Complaint: Flu Symptoms (Headaches and body aches for the past 4+ days, pt had a recorded temp at home of 102F.) Encounter Date: 07/29/2024 HPI: The history was obtained from the patient. Nissa is a 29 y.o. female, who presents with a chief complaint of Flu Symptoms (Headaches and body aches for the past 4+ days, pt had a recorded temp at home of 102F.) Sinus pressure and pain, nasal congestion with clear mucus, bilateral ear pain/fullness, productivecough with green sputum, mild sore throat, fever, chills, body aches, and fatigue. Denies shortnessof breath/wheezing. symptoms began 3 days ago, reports symptoms have progressively worsened since onset. Denies any abdominal pain, chest pain, rashes, urinary symptoms, vomiting, and diarrhea. Denies any lightheadedness or dizziness; no changes in mental status. No swelling in legs. Appetite is decreased; is able to eat and drink fluids without difficulty. Has been taking utilized Tylenol without much relief; no other [id number] medications or home remedies for symptom management. No known ill contacts. No known history of asthma/COPD/respiratory issues. Denies any recent antibiotic use. She is 10 weeks . PMHx: Past Medical History: Diagnosis Date Other conditions influencing health status Menstruation Personal history of other diseases of the respiratory system History of asthma No current outpatient medications on file. No current facility-administered medications for this visit. PMSx: Past Surgical History: Procedure Laterality Date OTHER SURGICAL HISTORY 08/25/2021 No history of surgery Fam Hx: No family history on file. SOC. Hx: Social History Socioeconomic History Marital status: Spouse name: Not on file Number of children: Not on file Years of education: Not on file Highest education level: Not on file Occupational History Not on file Tobacco Use Smoking status: Not on file Smokeless tobacco: Not on file Substance and Sexual Activity Alcohol use: Not on file Drug use: Not on file Sexual activity: Not on file Other Topics Concern Not on file Social History Narrative Not on file Social Drivers of Health Financial Resource Strain: Not on file Food Insecurity: Not on file Transportation Needs: Not on file Physical Activity: Not on file Stress: Not on file Social Connections: Not on file Intimate Partner Violence: Not on file Housing Stability: Not on file Vitals: 07/29/24 1747 BP: 100/71 Pulse: (!) 117 Resp: 16 Temp: 37.4 C (99.4 F) SpO2: 97% 54.4 kg (120 lb) Physical Exam Vitals and nursing note reviewed. Constitutional: Appearance: Normal appearance. HENT: Head: Normocephalic and atraumatic. Right Ear: Hearing, ear canal and external ear normal. A middle ear effusion is present. Tympanic membrane is erythematous. Tympanic membrane is not bulging. Tympanic membrane has normal mobility. Left Ear: Hearing, ear canal and external ear normal. A middle ear effusion is present. Tympanic membrane is erythematous. Tympanic membrane is not bulging. Tympanic membrane has normal mobility. Nose: Congestion and rhinorrhea present. Rhinorrhea is purulent. Right Sinus: Maxillary sinus tenderness and frontal sinus tenderness present. Left Sinus: Maxillary sinus tenderness and frontal sinus tenderness present. Mouth/Throat: Lips: [place]. Mouth: Mucous membranes are moist. Pharynx: Uvula midline. Posterior oropharyngeal erythema present. No pharyngeal swelling or oropharyngeal exudate. Tonsils: No tonsillar exudate. Cardiovascular: Rate and Rhythm: Normal rate and regular rhythm. Heart sounds: Normal heart sounds. Pulmonary: Effort: Pulmonary effort is normal. No respiratory distress. Breath sounds: Normal breath sounds. No stridor. No wheezing, rhonchi or rales. Chest: Chest wall: No tenderness. Abdominal: General: Bowel sounds are normal. Skin: General: Skin is warm and dry. Neurological: Mental Status: She is alert and oriented to person, place, and time. LABORATORY @ RADIOLOGICAL IMAGING (if done): Results for orders placed or performed in visit on 07/29/24 (from the past 24 hours) POCT SARS-COV-2/FLU/RSV PCR SYMPTOMATIC manually resulted Result Value Ref Range POC Coronavirus 2019, PCR Not Detected Not Detected POC Flu A Result Detected (A) Not Detected POC Flu B Result Not Detected Not Detected POC RSV PCR Not Detected Not Detected I did personally review Nissa's past medical history, surgical history, social history, as well asfamily history (when relevant). In this case, I also oversaw the her drug management by reviewing her medication list, allergy list, as well as the medications that I prescribed during the UC course and/or recommended as an out-patient (including possible OTC medications such as acetaminophen, NSAIDs , etc). After reviewing the items above, I did look at previous medical documentation, such as recent hospitalizations, office visits, and/or recent consultations with PCP/specialist. SDOH: Another factor that I considered in Nissa's care was her Social Determinants of Health (SDOH). During this UC encounter, she did not have social determinants of health. Those SDOH influencing Nissa's care are: none UC COURSE/MEDICAL DECISION MAKING: Nissa is a 29 y.o., who presents with a working diagnosis of 1. Influenza A 2. Viral URI with cough Nissa was seen today for flu symptoms. Diagnoses and all orders for this visit: Influenza A (Primary) Viral URI with cough - POCT SARS-COV-2/FLU/RSV PCR SYMPTOMATIC manually resulted Plan of care reviewed with patient. If symptoms change and/or worsen will follow-up with primary care provider, return to urgent care, or go to the nearest emergency department for further evaluation. Patient states understanding and is agreeable with plan of care. Padmini Sosa APRN, ROBERT Advanced Practice Provider [facility] Please note: While the patient may or may not have received printed discharge paperwork, all relevant medical findings, test results, and treatment details are accessible through the electronic medical record system. The patient is encouraged to review their chart via the patient portal for comprehensive information and follow-up instructions. documented in this [facility] Work Phone: 1(176) 204-646612-20-2022 Hospital Discharge instructions Patient Education 06/26/2022 11:28:46 Bacterial Conjunctivitis, Adult Bacterial Conjunctivitis, Adult Bacterial conjunctivitis is an infection of the clear membrane that covers the white part of your eye and the inner surface of your eyelid (conjunctiva). When the blood vessels in your conjunctiva become inflamed, your eye becomes red or pink, and it will probably feel itchy. Bacterial conjunctivitis spreads very easily from person to person (is contagious). It also spreads easily from one eye tothe other eye. What are the causes? This condition is caused by bacteria. You may get the infection if you come into close contact with: A person who is infected with the bacteria. Items that are contaminated with the bacteria, such as a face towel, contact lens solution, or eye makeup. What increases the risk? You are more likely to develop this condition if you: Are exposed to other people who have the infection. Wear contact lenses. Have a sinus infection. Have had a recent eye injury or surgery. Have a weak body defense system (immune system). Have a medical condition that causes dry eyes. What are the signs or symptoms? Symptoms of this condition include: Thick, yellowish discharge from the eye. This may turn into a crust on the eyelid overnight and cause your eyelids to stick together. Tearing or watery eyes. Itchy eyes. Burning feeling in your eyes. Eye redness. Swollen eyelids. Blurred vision. How is this diagnosed? This condition is diagnosed based on your symptoms and medical history. Your health care provider may also take a sample of discharge from your eye to find the cause of your infection. This is rarelydone. How is this treated? This condition may be treated with: Antibiotic eye drops or ointment to clear the infection more quickly and prevent the spread of infection to others. Oral antibiotic medicines to treat infections that do not respond to drops or ointments or that last longer than 10 days. Cool, wet cloths (cool compresses) placed on the eyes. Artificial tears applied 2 6 times a day. Follow these instructions at home: Medicines Take or apply your antibiotic medicine as told by your health care provider. Do not stop taking or applying the antibiotic even if you start to feel better. Take or apply yckx-vcc-zdjabbm and prescription medicines only as told by your health care provider. Be very careful to avoid touching the edge of your eyelid with the eye-drop bottle or the ointment tube when you apply medicines to the affected eye. This will keep you from spreading the infection to your other eye or to other people. Managing discomfort Gently wipe away any drainage from your eye with a warm, wet washcloth or a cotton ball. Apply a clean, cool compress to your eye for 10 20 minutes, 3 4 times a day. General instructions Do not wear contact lenses until the inflammation is gone and your health care provider says it is safe to wear them again. Ask your health care provider how to sterilize or replace your contact lenses before you use them again. Wear glasses until you can resume wearing contact lenses. Avoid wearing eye makeup until the inflammation is gone. Throw away any old eye cosmetics that may be contaminated. Change or wash your pillowcase every day. Do not share towels or washcloths. This may spread the infection. Wash your hands often with soap and water. Use paper towels to dry your hands. Avoid touching or rubbing your eyes. Do not drive or use heavy machinery if your vision is blurred. Contact a health care provider if: You have a fever. Your symptoms do not get better after 10 days. Get help right away if you have: A fever and your symptoms suddenly get worse. Severe pain when you move your eye. Facial pain, redness, or swelling. Sudden loss of vision. Summary Bacterial conjunctivitis is an infection of the clear membrane that covers the white part of your eye and the inner surface of your eyelid (conjunctiva). Bacterial conjunctivitis spreads very easily from person to person (is contagious). Wash your hands often with soap and water. Use paper towels to dry your hands. Take or apply your antibiotic medicine as told by your health care provider. Do not stop taking or applying the antibiotic even if you start to feel better. Contact a health care provider if you have a fever or your symptoms do not get better after 10 days. This information is not intended to replace advice given to you by your health care provider. Make sure you discuss any questions you have with your health care provider. Document Released: 06/24/2006 Document Revised: 10/13/2019 Document Reviewed: 01/28/2019 [employer]ancy Patient Education 2020 [employer]. 06/26/2022 11:28:44 Upper Respiratory Infection, Adult Upper Respiratory Infection, Adult An upper respiratory infection (URI) is a common viral infection of the nose, throat, and upper airpassages that lead to the lungs. The most common type of URI is the common cold. URIs usually get better on their own, without medical treatment. What are the causes? A URI is caused by a virus. You may catch a virus by: Breathing in droplets from an infected person's cough or sneeze. Touching something that has been exposed to the virus (contaminated) and then touching your mouth, nose, or eyes. What increases the risk? You are more likely to get a URI if: You are very young or very old. It is jason or winter. You have close contact with others, such as at a daycare, school, or health care facility. You smoke. You have long-term (chronic) heart or lung disease. You have a weakened disease-fighting (immune) system. You have nasal allergies or asthma. You are experiencing a lot of stress. You work in an area that has poor air circulation. You have poor nutrition. What are the signs or symptoms? A URI usually involves some of the following symptoms: Runny or stuffy (congested) nose. Sneezing. Cough. Sore throat. Headache. Fatigue. Fever. Loss of appetite. Pain in your forehead, behind your eyes, and over your cheekbones (sinus pain). Muscle aches. Redness or irritation of the eyes. Pressure in the ears or face. How is this diagnosed? This condition may be diagnosed based on your medical history and symptoms, and a physical exam. Your health care provider may use a cotton swab to take a mucus sample from your nose (nasal swab). This sample can be tested to determine what virus is causing the illness. How is this treated? URIs usually get better on their own within 7 10 days. You can take steps at home to relieve your symptoms. Medicines cannot cure URIs, but your health care provider may recommend certain medicines to help relieve symptoms, such as: Dbol-lsj-zzpvvnp cold medicines. Cough suppressants. Coughing is a type of defense against infection that helps to clear the respiratory system, so take these medicines only as recommended by your health care provider. Fever-reducing medicines. Follow these instructions at home: Activity Rest as needed. If you have a fever, stay home from work or school until your fever is gone or until your health care provider says you are no longer contagious. Your health care provider may have you wear a face mask to prevent your infection from spreading. Relieving symptoms Gargle with a salt-water mixture 3 4 times a day or as needed. To make a salt- water mixture, completely dissolve 1 tsp of salt in 1 cup of warm water. Use a cool-mist humidifier to add moisture to the air. This can help you breathe more easily. Eating and drinking Drink enough fluid to keep your urine pale yellow. Eat soups and other clear broths. General instructions Take jwdm-lmi-finxpru and prescription medicines only as told by your health care provider. These include cold medicines, fever reducers, and cough suppressants. Do not use any products that contain nicotine or tobacco, such as cigarettes and e-cigarettes. If you need help quitting, ask your health care provider. Stay away from secondhand smoke. Stay up to date on all immunizations, including the yearly (annual) flu vaccine. Keep all follow-up visits as told by your health care provider. This is important. How to prevent the spread of infection to others URIs can be passed from person to person (are contagious). To prevent the infection from spreading: ?Wash your hands often with soap and water. If soap and water are not available, use hand supervisor metal placing. ?Avoid touching your mouth, face, eyes, or nose. ?Cough or sneeze into a tissue or your sleeve or elbow instead of into your hand or into the air. Contact a health care provider if: You are getting worse instead of better. You have a fever or chills. Your mucus is brown or red. You have yellow or brown discharge coming from your nose. You have pain in your face, especially when you bend forward. You have swollen neck glands. You have pain while swallowing. You have white areas in the back of your throat. Get help right away if: You have shortness of breath that gets worse. You have severe or persistent: ?Headache. ?Ear pain. ?Sinus pain. ?Chest pain. You have chronic lung disease along with any of the following: ?Wheezing. ?Prolonged cough. ?Coughing up blood. ?A change in your usual mucus. You have a stiff neck. You have changes in your: ?Vision. ?Hearing. ?Thinking. ?Mood. Summary An upper respiratory infection (URI) is a common infection of the nose, throat, and upper air passages that lead to the lungs. A URI is caused by a virus. URIs usually get better on their own within 7 10 days. Medicines cannot cure URIs, but your health care provider may recommend certain medicines to help relieve symptoms. This information is not intended to replace advice given to you by your health care provider. Make sure you discuss any questions you have with your health care provider. Document Released: 12/18/2001 Document Revised: 07/02/2019 Document Reviewed: 02/07/2018 [employer]ancy Patient Education [place]. [facility] 10-07-2022 History of Present illness [id number] presents for blood pressure check. Patient was induced for gestational hypertension. Patient was titrated home without any medications. Patient's home blood pressure has been 130s over 80s. Patient has a mild headache this morning but she thinks is more tension as it can goes from her neck to The top of her head. Tylenol and ibuprofen help. Patient getting some decent rest. Baby feeding a lot. Patient notes no vision changes or upper abdominal pain with[address] Work Phone: [phone] NoteSend Summary: Discharge Summary Providers: Provider RoleProvider Name ReferringEv Mccartney Note Recipients: Ev Mccartney MD Discharge: Summary: Admission Date: .07-Apr-2022 18:16:00 Discharge Date: 10-Apr-2022 Attending Physician at Discharge: Aster Frank Admission Reason: 39 weeks. GHTN Final Discharge Diagnoses: 39 weeks. GHTN Procedures: Spontaneous vaginal delivery Condition at Discharge: Satisfactory Disposition at Discharge: .Home Vital Signs: T PRBPMAPSpO2 [id number]% Date/Time04/09 23:5804/09 23:583 23:5804/09 23:5804/09 23:583 23:58 Range(36.3C - 36.7C ) (85 - 107 ) (16 - 16 ) (119 - 142 )/ (80 - 98 ) (93 - 114 ) (98% - 100% ) Date: Weight/Scale Type:Height: 07-Apr-2022 23:4471.2 kg / jlfzbudj268.4 cm Physical Exam: Please see rounding note Hospital Course: Patient recuperated well in the period. Precautions reviewed returning to bedside. All questions answered. Patient is on blood pressure cuff. Patient to take it twice a day and follow-up Saturday for blood pressure check Discharge Information: and Continuing Care: Lab Results - Pending: None Radiology Results - Pending: None [place] Suicide Risk: negative Discharge Instructions: Activity: Return to normal activity as tolerated Nutrition/Diet: Regular Follow Up Appointments: Follow-Up - OB Provider: Physician/Dept/Service: OB Provider Scheduled Date/Time: 13-Apr-2022 Discharge Medications: Home Medication 1 oral capsule - orally once a day ibuprofen 600 mg oral tablet - 1 tab(s) orally every 6 hours as needed pain ferrous sulfate 325 mg (65 mg elemental iron) oral tablet - 1 tab(s) orally 2 times a day PRN Medication docusate sodium 100 mg oral capsule - 1 cap(s) orally 2 times a day, As needed, Stool Softening DNR Status: Code StatusCode Status order at time of discharge: Full Code Electronic Signatures: Aster Frank) (Signed 10-Apr-2022 04:50) Authored: Send Summary, Summary Content, Ongoing Care, DNR Status, Note Completion Last Updated: 10-Apr-2022 04:50 by Aster Frank)[facility] 04-08-2022 NoteProvider Information: Maternal Delivery Information: Delivery Type: vaginal delivery Did this pt receive corticosteroids at any time during this : No Was intraamniotic infection diagnosed during this labor: no What antibiotic(s) were administered during labor and/or pre-incision: Penicillin Did this patient receive progesterone in any form to prevent premature delivery: no Rupture of Membranes: spontaneous Spontaneous Labor: no Induction or Scheduled : induction Is patient at delivery >/= to 37 to < 39 completed weeks of gestation: yes Vaginal Delivery Type: spontaneous Vaginal Delivery Complications: none Delivery Anesthesia: epidural Presentation/Lie: vertex Vertex Presentation: Left: occiput anterior Episiotomy & Repair: none Perineal Laceration: second degree Other Laceration: Bilateral labial tears Laceration Repair: no QBL (mL): 480 mL Blood Products Transfused during Delivery (indicate number of units given): none Placenta: spontaneous Choose Baby: A Cord Characteristics: no anomalies noted Delayed Cord Clamping (equal to or greater than 30 seconds): yes Time until cord clamp: 60 sec from delivery time Day of Delivery (Baby A): 08-Apr-2022 Gestational Age at Delivery (wk.days): 38.4 Term: term 37.0 to 41.6 weeks Live : yes Vaginal Delivery Provider: Dr. Mccartney Hemorrhage Risk Screen: Hemorrhage Medium Risk Factors (T&S) (2 or more medium risks Go to High Risk section & obtain T&C)IOL with oxytocin or cervical ripening(1) Hemorrhage Risk Assessmenthemorrhage risks reviewed and additional factors added if applicable Hemorrhage Risk Score MediumPatient is at Medium Risk for an OB hemorrhage. Order Type & Screen. Score Calculation - IT Use Only1 Electronic Signatures: Ev Mccartney) (Signed 08-Apr-2022 16:46) Authored: Provider Information, Hemorrhage Risk, Note Completion Last Updated: 08-Apr-2022 16:46 by Ev Mccartney) References: 1. Data Referenced From History and Physical - OB 07-Apr-2022 23:28[facility]10-02-2022 NoteHPI/OB History: Care Provider: Aster Frank [facility] Descriptive Info: HPI Patient is a 27-year-old 1 para 0 at 38-3/7 weeks gestation with an EDC of 04/18/2022. The patient was seen in the office last week with a borderline elevation in blood pressure and has been checking her blood pressure over the weekend. The patient called today complaining that her blood pressure had been elevated at home and presented to labor and delivery for further evaluation. The patient denies headaches visual changes right upper quadrant pain GI upset reports good movement no contractions bleeding or abnormal discharge. No leaking of fluid. Patient reports the has been uncomplicated. Patient does have a history of migraines however. Labs: Labs: Labs: Blood Typed Date: 22-Sep-2021 Blood Type: O positive Antibody Screen Results: negative Chlamydia Date: 22-Sep-2021 Chlamydia Results: negative Gonorrhea Date: 22-Sep-2021 Gonorrhea Results: negative Group B Strep Date: 23-Mar-2022 Strep Results: positive Group B Strep Comments: Group B streptococcus ISOLATED GCT (dd-mmm-yy): 26-Jan-2022 GCT result: 137 GTT - Extended (dd--yy): 30-Jan-2022 GTT - Extended - Fastin GTT - Extended - 1 hour: 127 GTT - Extended - 2 hour: 113 GTT - Extended - 3 hour: 99 HBsAG Date: 22-Sep-2021 HBsAG Results: negative HIV Date: 22-Sep-2021 HIV Results: negative Rubella Date: 22-Sep-2021 Rubella Results: immune Rubella Comments: Result Value POSITIVE Syphilis (mmm-dd-yyyy): 22-Sep-2021 Syphilis Results: negative Urine Spot (): 07-Apr-2022 Total Protein/Creatinine Ratio: 0.2 Antepartum/: Antepartum/PP: Final [id number] Current EGA:38.3 Patient is > or = 35.0 wks EGAyes Determined byTeri EFW (kg)3.175 kilogram(s) EFW (lb)7 pound(s) EFW (oz)0 ounce(s) Presentationcephalic presentation verified bybedside ultrasound Vaginal BleedingNo Contractions/Abdominal PainYes Discharge/Loss of FluidNo MovementGood Hemorrhage Medium Risk Factors (T&S) (2 or more medium risks Go to High Risk section & obtain T&C)IOL with oxytocin or cervical ripening Hemorrhage Risk Assessmenthemorrhage risk completed on admission Hemorrhage Risk ScorePatient is at Medium Risk for an OB hemorrhage. Order Type & Screen. 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 Objective: Objective Information: T PRBPMAPSpO2 [id number]% Date/Time04/07 18: 22: 22: 22: 22: 20:03 Range(36.7C - 36.7C ) (73 - 111 ) (16 - 18 ) (126 - 145 )/ (87 - 107 ) (75 - 116 ) (97% - 99% ) Pain reported at 04/07 22:15: 2 = Mild Physical Exam by System: Constitutional: Healthy-appearing in no acute distress Obstetric: Gravid uterus nontender Head/Neck: Full range of motion Respiratory/Thorax: Good air movement and clear to auscultation Cardiovascular: Regular rate and rhythm Genitourinary: Cervix 2 cm 80% -3 station medium consistency and posterior Musculoskeletal: Mobility of her extremities Psychological: Appropriately oriented with normal mood and affect NST Interpretation - Baby A: Baseline [id number] Variabilitymoderate (amplitude range 6 to 25 bpm) InterpretationReactive (2 15x15 accels) AccelerationsPresent DecelerationsAbsent Recent Lab Results: Results: CBC: 04/07/2022 19:07 \ Hgb / \ 10.6 L / WBC Plt 12.9 H 269 / Hct \ / 31.9 L \ RBC: 3.53 L MCV: 90 CMP: 04/07/2022 19:07 NA+ Cl- BUN / 136 105 7 / Glucose 78 K+ HCO3- Creat \ 3.8 21 0.59 \ \ T Bili / \ 0.8 / AST x ---- x ALT 15 x ---- x 11 / Alk P \ / 195 H \ Calcium : 9.2 Anion Gap : 14 Albumin : 3.5 T Protein : 6.0 L I have reviewed these laboratory results: Complete Blood Count [Drawn 07-Apr-2022 19:07:00], Comprehensive Metabolic Panel [Drawn 07-Apr-2022 19:07:00], Uric Acid, Serum [Drawn 07-Apr-2022 19:07:00], Total Protein, Urine Spot [Drawn 07-Apr-2022 18:57:00]. Assessment and Plan: Assessment: Patient is a 27-year-old 1 para 0 at 38-3/7 weeks gestation with newly diagnosed gestational hypertension. Preeclamptic labs returned normal. Patient without symptoms of severe feat (more content not included)...[facility]10-18-2021 Miscellaneous Notes* Assessment & Plan Note - Brea Sherman MD - 04/24/2021 3:57 PM EDT Associated Problem(s): Lymphadenopathy, anterior cervical Will test for ebv and hiv US soft tissue neck ordered -likely reactive as pt does not have any systemic symptoms documented in this [id number] Instructions* Patient Instructions* Brea Sherman MD - 04/24/2021 3:35 PM EDT Problem List Items Addressed This Visit Immune and Lymphatic Lymphadenopathy, anterior cervical - Primary Will test for ebv and hiv US soft tissue neck ordered -likely reactive as pt does not have any systemic symptoms Relevant Orders EBV Antibody Profile (IGG/M,EBNA) CBC and Differential Comprehensive Metabolic Panel TSH with Reflex Free T4 US Soft Tissue Neck HIV Antibody (HIV1/HIV2) If any referrals were placed at the time of your visit please allow 2 weeks for processing. If you haven't heard from anyone within 2 weeks please contact my office so we can look into the status of your referral. If you were given any labs today please ensure they are completed according to the directions given. Most normal results will be available through [facility] however if abnormal, you will be notified. Please allow 48-72 hours for review, and let you know what steps, if any, are needed next. If you haven't heard from us after that please call to inquire. If labs were ordered to be done PRIOR to your next visit we will discuss the results at the time ofyour office visit. If any procedures or imaging studies were ordered that must be prior authorized please give us 2 weeks to get them approved. Once approved someone should call you to schedule them or give you a date and time that they were scheduled for. If you haven't heard anything within 2 weeks of the office visit please call the office so we can look into their status. Customer Service/Billing Questions: [phone] [facility] Assistance: [phone] or [phone] Financial Assistance: [phone] or [phone] documented in this [id number] History of Present illness Narrative* Brea Sherman MD - 04/24/2021 3:28 PM EDT Subjective Patient ID: Nissa Crain is a 26 y.o. female. Chief Complaint Patient presents with Lymph nodes in neck are swollen symptoms x 4 months HPI Patient is a very pleasant 26-year-old female with no significant past medical history presenting as a new patient to the clinic today. Patient does have acute complaint today Lymphadenopathy patient states approximately 4 months ago she was very sick, had sore throat, fatigue and lost her voice and also had swollen lymph nodes. Since then most of the patient's symptoms have resolved however she continues to have swollen lymph nodes on the right side of her neck. She denies any fever, chills, night sweats, tenderness on palpation,foul taste in her mouth, pain with swall owing, difficulty swallowing, hoarseness of voice, weight changes, fatigue, appetite changes, No hxof stds/drug use. No abd pain or distension. . She also denies any lymphadenopathy anywhere else onher body. She denies any close contacts having similar symptoms. All pertinent positives and negatives are documented in ROS Patient's medications, allergies, past medical history, surgical history history, family history, social history were reviewed. Spent more than 15 minutes with patient, coordinating patient care, including reviewing charts and counseling patient. Patient Active Problem List Diagnosis Lymphadenopathy, anterior cervical History reviewed. No pertinent surgical history. Family History Problem Relation Age of Onset Multiple sclerosis Father Social History Tobacco Use Smoking status: Never Smoker Smokeless tobacco: Never Used Vaping Use Vaping Use: Never used Substance Use Topics Alcohol use: Yes Comment: Socially Drug use: Never No Known Allergies Outpatient Medications as of 04/24/2021 Medication Sig vitamin with Ca-Iron-FA 27-1 mg Tab Take 1 tablet by mouth daily . Review of Systems Constitutional: Negative for appetite change, chills, fatigue, fever and unexpected weight change. HENT: Negative for sore throat, trouble swallowing and voice change. Eyes: Negative for visual disturbance. Respiratory: Negative for cough. Cardiovascular: Negative for chest pain and palpitations. Gastrointestinal: Negative for abdominal pain, diarrhea and nausea. Endocrine: Negative for cold intolerance and heat intolerance. Musculoskeletal: Negative for arthralgias, joint swelling and neck pain. Skin: Negative for rash. Neurological: Negative for dizziness, tremors, weakness, numbness and headaches. Hematological: Positive for adenopathy. Does not bruise/bleed easily. Psychiatric/Behavioral: Negative for decreased concentration, dysphoric mood and sleep disturbance.The patient is not nervous/anxious. Objective Vitals: 04/24/21 1518 BP: 112/73 BP Location: Right arm Patient Position: Sitting BP Cuff Size: Adult Pulse: 78 Resp: 16 Temp: 98.9 F (37.2 C) TempSrc: Temporal SpO2: 98% Weight: 58.1 kg (128 lb) Height: 5' Estimated body mass index is 25 kg/m as calculated from the following: Height as of this encounter: 5'. Weight as of this encounter: 58.1 kg (128 lb). Physical Exam Vitals and nursing note reviewed. Constitutional: Appearance: Normal appearance. HENT: Head: Normocephalic and atraumatic. Salivary Glands: Right salivary gland is not diffusely enlarged or tender. Left salivary gland is not diffusely enlarged or tender. Mouth/Throat: Mouth: Mucous membranes are moist. Dentition: Normal dentition. Tongue: No lesions. Pharynx: Oropharynx is clear. Tonsils: No tonsillar exudate. Eyes: Extraocular Movements: Extraocular movements intact. Neck: Thyroid: No thyroid mass, thyromegaly or thyroid tenderness. Trachea: Trachea normal. Cardiovascular: Rate and Rhythm: Normal rate and regular rhythm. Heart sounds: Normal heart sounds. Pulmonary: Effort: Pulmonary effort is normal. Breath sounds: Normal breath sounds. Chest: Breasts: Right: No axillary adenopathy or supraclavicular adenopathy. Left: No axillary adenopathy or supraclavicular adenopathy. Abdominal: General: Abdomen is flat. There is no distension. Palpations: Abdomen is soft. Musculoskeletal: General: Normal range of motion. Cervical back: Normal range of motion. Lymphadenopathy: Head: Right side of head: No submental, submandibular, tonsillar, preauricular, posterior auricular or occipital adenopathy. Left side of head: No submental, submandibular, tonsillar, preauricular, posterior auricular or occipital adenopathy. Cervical: Cervical adenopathy present. Right cervical: Superficial cervical adenopathy present. No deep or posterior cervical adenopathy. Left cervical: No superficial, deep or posterior cervical adenopathy. Upper Body: Right upper body: No supraclavicular, axillary or epitrochlear adenopathy. Left upper body: No supraclavicular, axillary or epitrochlear adenopathy. Skin: General: Skin is warm. Neurological: General: No focal deficit present. Mental Status: She is alert and oriented to person, place, and time. Mental status is at baseline. Psychiatric: Attention and Perception: Attention and perception normal. Mood and Affect: Mood normal. Speech: Speech normal. Behavior: Behavior normal. Thought Content: Thought content normal. Cognition and Memory: Cognition and memory normal. Judgment: Judgment normal. PHQ9: Over the last 2 weeks, how often have you been bothered by any of the following problems? Little interest or pleasure in doing things: Not at all Feeling down, depressed, or hopeless: Not at all PHQ-2 Total Score: 0 Trouble falling or staying asleep, or sleeping too much: Not at all Feeling tired or having little energy: Not at all Poor appetite or overeating: Not at all Feeling bad about yourself - or that you are a failure or have let yourself or your family down: Not at all Trouble concentrating on things, such as reading the newspaper or watching television: Not at all Moving or speaking so slowly that other people could have noticed. Or the opposite - being so fidgety or restless that you have been moving around a lot more than usual: Not at all Thoughts that you would be better off , or of hurting yourself in some way: Not at all PHQ-9 Total Score: 0 If you checked off any problems, how difficult have these problems made it for you to do your work,take care of things at home, or get along with other people?: Not difficult at all LOLLY-7 Over the last 2 weeks, how often have you been bothered by the following problems? Feeling nervous, anxious or on edge: Not at all Not being able to stop or control worrying: Not at all Worrying too much about different things: Not at all Trouble relaxing: Not at all Being so restless that it is hard to sit still: Not at all Becoming easily annoyed or irritable: Not at all Feeling afraid as if something awful might happen: Not at all LOLLY-7 Score: 0 Tobacco Counseling: Counseling given: Not Answered Assessment/Plan: Problem List Items Addressed This Visit Immune and Lymphatic Lymphadenopathy, anterior cervical - Primary Will test for ebv and hiv US soft tissue neck ordered -likely reactive as pt does not have any systemic symptoms Relevant Orders EBV Antibody Profile (IGG/M,EBNA) CBC and Differential Comprehensive Metabolic Panel TSH with Reflex Free T4 US Soft Tissue Neck HIV Antibody (HIV1/HIV2) Return if symptoms worsen or fail to improve. For any new medications prescribed today, patient was educated about indications for the medication, how to take the medication and potential side effects of the medications. Brea Sherman MD documented in [facility] + Plan note No data available for this section [facility] Evaluation note* Diagnosis Lymphadenopathy, anterior cervical- Primary [facility]* Diagnosis Lymphadenopathy, anterior cervical- Primary [facility]* Diagnosis Lymphadenopathy, anterior cervical- Primary [facility]* Diagnosis Lymphadenopathy, anterior cervical- Primary Lymphadenopathy, anterior cervical [facility]* Diagnosis Influenza A- Primary Influenza with other respiratory manifestations Viral URI with cough documented in this encounter [facility] Work Phone: History of Present illness NarrativePatient is a 27-year-old who comes in for her 6-week visit. Patient reports that she is still having periodic dark blood. Patient reports she stopped for a week but then restarted bleedingagain recently. Patient is currently breast-feeding and has no interest in contraception.[address] Work Phone: Hospital Discharge instructions No data available for this section [facility] Progress note No data available for this section [facility] Prolschy note Author Thelma Taveras [facility] Note Date/Time December 23, 2024 1:39 pm [facility] [address] [place] [address], [address] [place] [address] OFFICE VISIT Date of Service: 12/23/24 MR#: [id number] Acct: [id number] Name: NISSA CRAIN Rep #: [id number] : 1995 Provider: Dr. 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 Is patient in pain?: No Allergies No Known Allergies Allergy (Verified 12/23/24 12:58) Medications ?Medication ?Instructions ?Recorded ?Confirmed ?Type docosahexaenoic acid 200 mg mg PO 07/31/24 12/23/24 Hi story capsule ( DHA) ondansetron HCl 4 mg tablet 4 mg PO Q4H #60 tabs 10/0812/23/24 Rx Last Menstrual Period: 06/10/24 Zika: Zika virus screening: Negative : No PFSH PFSH Family History Grandfather Stomach cancer Grandmother Breast cancer Social History adopted: No household members: spouse, children and other details: Pt's kellie brother number of children: 1 current occupation: [employer] current occupational exposures/hazards: No pets and animals: Yes pets and animals: dog(s) history of recent travel: No sexually active: Yes Smoking Status: Never smoker alcohol intake: current alcohol intake frequency: holidays/special occasions only details: Not while substance use type: does not use well-balanced diet: daily or most days caffeine: Yes Type: carbonated beverages eating out: 1-3 times/week during the past year weight has: remained stable what type of physical activity do you participate in: none antnoi/faith: None seatbelt use: always do you feel safe at home: Yes additional social history: : [place] [facility] History 2 Elective abortions Hx Para 1 Spontaneous abortions 0 Hx # Term Pregnancies 1 Ectopic pregnancies Hx # Pregnancies Multiple births # of living children 1 Past Pregnancies Del. Date Name GA/Weeks Outcome Route Bth Weight Infant Gen Labor Lgth Anesthesia Del Locatn Provider FOB 04/08/22 Kia 37 live - full term 6lbs 9oz [facility] Delivery [facility]: 04[facility]08[facility]22 Last Updated by: Olive Day RN Induced for high blood pressure HPI 28wk ob/glucose Details: NISSA CRAIN is a 29 year old who presents for routine OB visit. OB Visit PERLA Calculator Estimated Delivery Date Method Current WG Current Estimate 03/17/25 LMP (Certain) 28w 0d Other Estimates 03/18/25 Ultrasound #1 27w 6d Expected Delivery Route/Plan Labor Preferences- CB/BF classes: no labor support person: Markos labor intervention preferences: [] pain management options preferred: epidural cut cord/dad catch: cord : yes PP control planned: discussed discussed possible routes of delivery and associated risks: [] special requests: [] Specific Issue/Plans Covid status: [] Flu vaccine: [] Tdap vaccine: [] Rhogam: na LARC form signed: yes Problem list reviewed and updated with the most current plan of care details and appropriate orders placed. Relevant counseling for the gestational age provided. Continue routine care and follow up unless otherwise noted in visit notes/problem list details Initial Weight: Not Recorded Date -?-?-?-?-?-?-?-?-?-?-?-?- EGA Weight BP Urine Prot -?-?-?-?-?-?-?-?-?-?-?-?- Glucose FHR FuHt Pres Dilation -?-?-?-?-?-?-?-?-?-?-?-?- Effaced St Visit Note 08/14/24 -?-?-?-?-?-?-?-?-?-?-?-?- 9w 2d 141 lb 2 oz 126/74 -?-?-?-?-?-?-?-?-?-?--?-?- 179 -?-?-?-?-?-?-?-?-?-?-?-?- SM- CRL 9w1d con s with lmp 09/11/24 -?-?-?-?-?-?-?-?-?-?-?-?- 13w 2d 143 lb 6 oz 119/78 -?-?-?-?-?-?-?-?-?-?-?-?- 159 -?-?-?-?-?-?-?-?-?-?-?-?- KW- no vb/crampi ng. US ordered. encouraged to take PNV at night KW- no vb/cramping. US order ed. encouraged to take PNV at night. NIPT today 10/08/24 -?-?-?-?-?-?-?-?-?-?-?-?- 17w 1d 146 lb 6 oz 111/74 Nega tive -?-?-?-?-?-?-?-?-?-?-?-?- Negative 153 -?-?-?-?-?-?-?-?-?-?-?-?- JV- still having nausea. estefania refilled. anatomy scan scheduled 10/2011/06/24 -?-?-?-?-?-?-?-?-?-?-?-?- 21w 2d 150 lb 120/73 Negative -?-?-?-?-?-?-?-?-?-?-?-?- Negative 155 -?-?-?-?-?-?-?-?-?-?-?-?- KW- no vb/lof/ct x. good fm reviewed US. doing well. 12/02/24 -?-?-?-?-?-?-?-?-?-?-?-?- 25w 0d 154 lb 8 oz 118/72 Nega tive -?-?-?-?-?-?-?-?-?-?-?-?- Negative 152 -?-?-?-?-?-?-?-?-?-?-?-?- MH-NO VB, LOF. G ood FM. Having off and RUQ pain. NO rash or itching. GB US and labs 12/23/24 -?-?-?-?-?-?-?-?-?-?-?-?- 28w 0d 157 lb 4 oz 118/74 Nega tive -?-?-?-?-?-?-?-?-?-?-?-?- Negative 145 28 -?-?-?-?-?-?-?-?-?-?-?-?- SM- no vb lof go odf m no reugalr ctx ACOG First Trimester First Trimester: Discussed Second Trimester Second Trimester: Signs and Symptoms of Labor, Selecting a care provider, Reproductive Life Planning & Contreception, Care Planning, Depression/Anxiety and Intimate Partner Violence; Discussed Tobacco Cessation Third Trimester Third Trimester: Pain Management Plans, Labor support person(s), Immediate Larc, Movement Monitoring, Signs and Symptoms of Preeclampsia and Education Results POC Urinalysis 2 Dip (Clinic) Office Urine Glucose Negative Last Edit by Andre Avitia on 12/23/24 13:02 Office Urine Protein Negative Last Edit by Andre Avitia on 12/23/24 13:02 Coding Level of Care Code OB Routine Diagnoses RUQ pain R10.11 Exposure to parvovirus Z20.828 Abnormal ultrasound O28.3 History of gestational hypertension Z87.59 Supervision of high risk in second trimester O09.92 Trimester: second trimester 28 weeks gestation of Z3A.28 Weeks of gestation: 28 weeks Asthma J45.909 Assessment and Plan Assessment and Plan (1) RUQ pain: Status: Acute Comment: GB US and labs (2) Exposure to parvovirus: Status: Acute (3) Abnormal ultrasound: Status: Acute Comment: horseshoe kidney. normal echo. follow up growth at 32 weeks. (4) History of gestational hypertension: Status: Acute Comment: baby ASA recommended. baseline labs. (5) Supervision of high-risk : Status: Acute Qualifiers: Trimester: second trimester Qualified Code(s): O09.92 - Supervision of high risk , unspecified, second trimester Comment: , PERLA 03/17/25, PC: Kia, : Markos (6) : Status: Acute Qualifiers: Weeks of gestation: 28 weeks Qualified Code(s): Z3A.28 - 28 weeks gestation of Comment: NIPT low risk, anatomy reviewed (7) Asthma: Status: Acute Comment: Childhood Orders: Orders POC Urinalysis 2 Dip (Clinic) Today 12/23/24 1334 <Electronically signed by Thelma velez MD> Date _ Thelma Taveras MD Cosigner Signature: Date (if applicable) CC: ~ [facility] Work Phone: Progress note Author Yao Brambila [facility] Note Date/Time January 25, 2025 9:45 am [facility] [address] [place] [address], [address] [place] [address] OFFICE VISIT Date of Service: 01/25/25 MR#: [id number] Acct: [id number] Name: NISSA CRAIN Rep #: [id number] : 1995 Provider: MARIKA Brambila Age/Sex: 30/F [place] [facility] [place]: Signed Intake Vital Signs 12/02/24 15:37 01/04/25 14:10 01/25/25 09:30 Height 5 ft 3 in 5 ft 3 in 5 ft 3 in Weight: 161 lb 8 oz BMI 28.5 BP 123/78 H Intake Visit Reasons: 32wk ob Chief Complaint: 32wk OB 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 Is patient in pain?: No Allergies No Known Allergies Allergy (Verified 01/25/25 09:29) Medications ?Medication ?Instructions ?Recorded ?Confirmed ?Type docosahexaenoic acid 200 mg mg PO 07/31/24 01/25/25 Hi story capsule ( DHA) ondansetron HCl 4 mg tablet 4 mg PO Q4H #60 tabs 01/0101/25/25 Rx Last Menstrual Period: 06/10/24 : No PFSH PFSH Family History Grandfather Stomach cancer Grandmother Breast cancer Social History adopted: No household members: spouse, children and other details: Pt's youger brother number of children: 1 current occupation: [employer] current occupational exposures/hazards: No pets and animals: Yes pets and animals: dog(s) history of recent travel: No sexually active: Yes Smoking Status: Never smoker alcohol intake: current alcohol intake frequency: holidays/special occasions only details: Not while substance use type: does not use well-balanced diet: daily or most days caffeine: Yes Type: carbonated beverages eating out: 1-3 times/week during the past year weight has: remained stable what type of physical activity do you participate in: none antoni/faith: None seatbelt use: always do you feel safe at home: Yes additional social history: : [place] History 2 Elective abortions Hx Para 1 Spontaneous abortions 0 Hx # Term Pregnancies 1 Ectopic pregnancies Hx # Pregnancies Multiple births # of living children 1 Past Pregnancies Del. Date Name GA/Weeks Outcome Route Bth Weight Infant Gen Labor Lgth Anesthesia Del Locatn Provider FOB 04/08/22 Kia 37 live - full term 6lbs 9oz Male epidural [facility] Delivery Date: 04/08/22 Last Updated by: Olive Day RN Induced for high blood pressure HPI 32wk ob Details: NISSA CRAIN is a 30 year old who presents for routine OB visit. OB Visit PERLA Calculator Estimated Delivery Date Method Current WG Current Estimate 03/17/25 LMP (Certain) 32w 5d Other Estimates 03/18/25 Ultrasound #1 32w 4d Expected Delivery Route/Plan Labor Preferences- CB/BF classes: no labor support person: Markos labor intervention preferences: [] pain management options preferred: epidural cut cord/dad catch: cord : yes PP control planned: discussed discussed possible routes of delivery and associated risks: [] special requests: [] Specific Issue/Plans Covid status: [] Flu vaccine: [] Tdap vaccine: declines Rhogam: na LARC form signed: yes Problem list reviewed and updated with the most current plan of care details and appropriate orders placed. Relevant counseling for the gestational age provided. Continue routine care and follow up unless otherwise noted in visit notes/problem list details Initial Weight: Not Recorded Date -?-?-?-?-?-?-?-?-?-?-?-?- EGA Weight BP Urine Prot -?-?-?-?-?-?-?-?-?-?-?-?- Glucose FHR FuHt Pres Dilation -?-?-?-?-?-?-?-?-?-?-?-?- Effaced St Visit Note 08/14/24 -?-?-?-?-?-?-?-?-?-?-?-?- 9w 2d 141 lb 2 oz 126/74 -?-?-?-?-?-?-?-?-?-?-?-?- 179 -?-?-?-?-?-?-?-?-?-?-?-?- SM- CRL 9w1d con s with lmp 09/11/24 -?-?-?-?-?-?-?-?-?-?-?-?- 13w 2d 143 lb 6 oz 119/78 -?-?-?-?-?-?-?-?-?-?-?-?- 159 -?-?-?-?-?-?-?-?-?-?-?--?- KW- no vb/crampi ng. US ordered. encouraged to take PNV at night KW- no vb/cramping. US order ed. encouraged to take PNV at night. NIPT today 10/08/24 -?-?-?-?-?-?-?-?--?-?-?-?- 17w 1d 146 lb 6 oz 111/74 Nega tive -?-?-?-?-?-?-?-?-?-?-?-?- Negative 153 -?-?-?-?-?-?-?-?-?-?-?-?- JV- still having nausea. estefania refilled. anatomy scan scheduled 10/2011/06/24 -?-?-?-?-?-?-?-?-?-?-?-?- 21w 2d 150 lb 120/73 Negative -?-?-?-?-?-?-?-?-?-?-?-?- Negative 155 -?-?-?-?-?-?-?-?-?-?-?-?- KW- no vb/lof/ct x. good fm reviewed US. doing well. 12/02/24 -?-?-?-?-?-?-?-?-?-?-?-?- 25w 0d 154 lb 8 oz 118/72 Nega tive -?-?-?-?-?-?-?-?-?-?-?-?- Negative 152 -?-?-?-?-?-?-?-?-?-?-?-?- MH-NO VB, LOF. G ood FM. Having off and RUQ pain. NO rash or itching. GB US and labs 12/23/24 -?-?-?-?-?-?-?-?-?-?-?-?- 28w 0d 157 lb 4 oz 118/74 Nega tive -?-?-?-?-?-?-?-?-?-?-?-?- Negative 145 28 -?-?-?-?-?-?-?-?-?-?-?-?- SM- no vb lof go odf m no reugalr ctx 01/04/25 -?-?-?-?-?-?-?-?-?-?-?-?- 29w 5d 160 lb 8 oz 112/68 Nega tive -?-?-?-?-?-?-?-?-?-?-?-?- Negative 156 30 -?-?-?-?-?-?-?-?-?-?-?-?- MH-No VB, LOF. G ood FM. Has not been taking PNV. Mild anemia-take gummy PNV at night and Fe supp with OJ Qam. 01/25/25 -?-?--?-?-?-?-?-?-?-?-?-?- 32w 5d 161 lb 8 oz 123/78 Nega tive -?-?-?-?-?-?-?-?-?-?-?-?- Negative 140 32 -?-?-?-?-?-?-?-?-?-?-?-?- KW- no vb/lof/ct x. good fm. US reviewed. ACOG First Trimester First Trimester: Discussed Second Trimester Second Trimester: Signs and Symptoms of Labor, Selecting a care provider, Reproductive Life Planning & Contreception, Care Planning, Depression/Anxiety and Intimate Partner Violence; Discussed Tobacco Cessation Third Trimester Third Trimester: Pain Management Plans, Labor support person(s), Immediate Larc, Movement Monitoring, Signs and Symptoms of Preeclampsia and [place] Education ROS Const Reports system reviewed and no additional complaints, except as documented Eyes Reports system reviewed and no additional complaints, except as documented ENT Reports system reviewed and no additional complaints, except as documented Card Reports system reviewed and no additional complaints, except as documented Resp Reports system reviewed and no additional complaints, except as documented GI Reports system reviewed and no additional complaints, except as documented, Denies nausea and Denies vomiting Reports system reviewed and no additional complaints, except as documented Musc Reports system reviewed and no additional complaints, except as documented Skin/Breast Reports system reviewed and no additional complaints, except as documented Neuro Yes system reviewed and no additional complaints, except as documented Psych Reports system reviewed and no additional complaints, except as documented Endo Reports system reviewed and no additional complaints, except as documented Conrad/Lymph Reports system reviewed and no additional complaints, except as documented Aller/Immun Reports system reviewed and no additional complaints, except as documented Exam Const General: cooperative, healthy appearing and no acute distress Orientation: alert, awake and oriented x3 Neck Neck: normal visual inspection and full ROM Resp Effort & Inspection: normal respiratory effort, able to speak in complete sentences and symmetric chest movement GI Inspection: normal to inspection Palpation: soft and other Other: gravid Skin General: no rashes or lesions noted Neuro General: patient alert, patient awake and patient oriented x3 Cognition: normal cognition Speech: speech normal Gait: normal gait Motor: muscle tone normal throughout Extrem General: normal to inspection and full ROM Psych Appearance: grossly normal Mental Status: mental status grossly normal Mood: congruent mood Affect: normal affect Speech and Movement: speech and movement normal Attitude: cooperative Thought Process: normal Thought Content: normal Judgment: judgment good Results POC Urinalysis 2 Dip (Clinic) Office Urine Glucose Negative Last Edit by Annmarie Horta on 01/25/25 09:34 Office Urine Protein Negative Last Edit by Annmarie Horta on 01/25/25 09:34 Coding Level of Care Code Off vis,est,level 3 Diagnoses Anemia affecting in third trimester O99.013 Trimester: third trimester Exposure to parvovirus Z20.828 Abnormal ultrasound O28.3 History of gestational hypertension Z87.59 Supervision of high risk in third trimester O09.93 Trimester: third trimester Asthma J45.909 32 weeks gestation of Z3A.32 Weeks of gestation: 32 weeks Assessment and Plan Assessment and Plan (1) Anemia affecting : Status: Acute Qualifiers: Trimester: third trimester Qualified Code(s): O99.013 - Anemia complicating , third trimester Comment: PO iron:was not taking vitamin due to nausea. Will take Fe in Am and a gummy PNV in evening. (2) Exposure to parvovirus: Status: Acute Comment: immunity. No new virus (3) Abnormal ultrasound: Status: Acute Comment: horseshoe kidney. normal echo. follow up growth at 32 weeks. (4) History of gestational hypertension: Status: Acute Comment: baby ASA recommended. baseline labs. (5) Supervision of high-risk : Status: Acute Qualifiers: Trimester: third trimester Qualified Code(s): O09.93 - Supervision of high risk , unspecified, third trimester Comment: [id number], PERLA 03/17/25, PC: Kia, : Markos (6) Asthma: Status: Acute Comment: Childhood (7) : Status: Acute Qualifiers: Weeks of gestation: 32 weeks Qualified Code(s): Z3A.32 - 32 weeks gestation of Comment: NIPT low risk, anatomy reviewed Orders: Orders POC Urinalysis 2 Dip (Clinic) Today Plan Details Additional Comments: ACOG trimester education reviewed and updated. see problem list details for updated plan management information and see below for orders placed at this visit. GA appropriate handout given. 01/25/25 0945 <Electronically signed by Yao naidu CNM> Date _ Yao Brambila CNM Cosigner Signature: Date (if applicable) CC: ~ [facility] Work Phone: Progress note Author Yao Brambila [facility] Note Date/Time March 17, 2025 9:41am [facility] [address] [place] [address], [address] [place] [address] OFFICE VISIT Date of Service: 03/17/25 MR#: [id number] Acct: [id number] Name: NISSA CRAIN Rep #: [id number] : 1995 Provider: MARIKA Brambila Age/Sex: 30/F [place] [facility] [place]: Signed Intake Vital Signs 02/01/25 14:55 03/10/25 14:27 03/17/25 09:23 Height 5 ft 3 in 5 ft 3 in 5 ft 3 in Weight: 168 lb 5 oz BMI 29.8 BP 135/89 H Intake Visit Reasons: 40wk ob *HAPPY DUE DATE Chief Complaint: 40wk OB 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 Is patient in pain?: No Allergies No Known Allergies Allergy (Verified 03/17/25 09:21) Medications ?Medication ?Instructions ?Recorded ?Confirmed ?Type docosahexaenoic acid 200 mg mg PO 07/31/24 03/17/25 Hi story capsule ( DHA) ondansetron HCl 4 mg tablet 4 mg PO Q4H #60 tabs 01/0103/17/25 Rx Last Menstrual Period: 06/10/24 : No PFSH PFSH Family History Grandfather Stomach cancer Grandmother Breast cancer Social History adopted: No household members: spouse, children and other details: Pt's youger brother number of children: 1 current occupation: [employer] current occupational exposures/hazards: No pets and animals: Yes pets and animals: dog(s) history of recent travel: No sexually active: Yes Smoking Status: Never smoker alcohol intake: current alcohol intake frequency: holidays/special occasions only details: Not while substance use type: does not use well-balanced diet: daily or most days caffeine: Yes Type: carbonated beverages eating out: 1-3 times/week during the past year weight has: remained stable what type of physical activity do you participate in: none antoni/faith: None seatbelt use: always do you feel safe at home: Yes additional social history: : [employer] History 2 Elective abortions Hx Para 1 Spontaneous abortions 0 Hx # Term Pregnancies 1 Ectopic pregnancies Hx # Pregnancies Multiple births # of living children 1 Past Pregnancies Del. Date Name GA/Weeks Outcome Route Bth Weight Gen Labor Lgth Anesthesia Del Locatn Provider FOB 04/08/22 Kia 37 live - full term 6lbs 9oz [facility]: [facility] Last Updated by: Olive Day RN Induced for high blood pressure HPI 40wk ob *HAPPY DUE DATE Details: NISSA CRAIN is a 30 year old who presents for routine OB visit. OB Visit PERLA Calculator Estimated Delivery Date Method Current WG Current Estimate 03/17/25 LMP (Certain) 40w 0d Other Estimates 03/18/25 Ultrasound #1 39w 6d Expected Delivery Route/Plan Labor Preferences- CB/BF classes: no labor support person: Markos labor intervention preferences: [] pain management options preferred: epidural cut cord/dad catch: cord : yes PP control planned: discussed discussed possible routes of delivery and associated risks: [] special requests: [] Specific Issue/Plans Covid status: [] Flu vaccine: [] Tdap vaccine: declines Rhogam: na LARC form signed: yes Problem list reviewed and updated with the most current plan of care details and appropriate orders placed. Relevant counseling for the gestational age provided. Continue routine care and follow up unless otherwise noted in visit notes/problem list details Initial Weight: Not Recorded Date -?-?-?-?-?-?-?-?-?-?-?-?- EGA Weight BP Urine Prot -?-?-?-?-?-?-?-?-?-?-?-?- Glucose FHR FuHt Pres Dilation -?-?-?-?-?-?-?-?-?-?-?-?- Effaced St Visit Note 08/14/24 -?-?-?-?-?-?-?-?-?-?-?-?- 9w 2d 141 lb 2 oz 126/74 -?-?-?-?-?-?-?-?-?-?-?-?- 179 -?-?-?-?-?-?-?-?-?-?-?-?- SM- CRL 9w1d con s with lmp 09/11/24 -?-?-?-?-?-?-?-?-?-?-?-?- 13w 2d 143 lb 6 oz 119/78 -?-?-?-?-?-?-?-?-?-?-?-?- 159 -?-?-?-?-?-?-?-?-?-?-?-?- KW- no vb/crampi ng. US ordered. encouraged to take PNV at night KW- no vb/cramping. US order ed. encouraged to take PNV at night. NIPT today 10/08/24 -?-?-?-?-?-?-?-?-?-?-?-?- 17w 1d 146 lb 6 oz 111/74 Nega tive -?-?-?-?-?-?-?-?-?-?-?-?- Negative 153 -?-?-?-?-?-?-?-?-?-?-?-?- JV- still having nausea. estefania refilled. anatomy scan scheduled 10/2011/06/24 -?-?-?-?-?-?-?-?-?-?-?-?- 21w 2d 150 lb 120/73 Negative -?-?-?-?-?-?-?-?-?-?-?-?- Negative 155 -?-?-?-?-?-?-?-?-?-?-?-?- KW- no vb/lof/ct x. good fm reviewed US. doing well. 12/02/24 -?-?-?-?-?-?-?-?-?-?-?-?- 25w 0d 154 lb 8 oz 118/72 Nega tive -?-?-?-?-?-?-?-?-?-?-?-?- Negative 152 -?-?-?-?-?-?-?-?-?-?-?-?- MH-NO VB, LOF. G ood FM. Having off and RUQ pain. NO rash or itching. GB US and labs 12/23/24 -?-?-?-?-?-?-?-?-?-?-?-?- 28w 0d 157 lb 4 oz 118/74 Nega tive -?-?-?-?-?-?-?-?-?-?-?-?- Negative 145 28 -?-?-?-?-?-?-?-?-?-?-?-?- SM- no vb lof go odf m no reugalr ctx 01/04/25 -?-?-?-?-?-?-?-?-?-?-?-?- 29w 5d 160 lb 8 oz 112/68 Nega tive -?-?-?-?-?-?-?-?-?-?-?--?- Negative 156 30 -?-?-?-?-?-?-?-?-?-?-?-?- MH-No VB, LOF. G ood FM. Has not been taking PNV. Mild anemia-take gummy PNV at night and Fe supp with OJ Qam. 01/25/25 -?-?-?-?-?-?-?-?-?-?-?-?- 32w 5d 161 lb 8 oz 123/78 Nega tive -?-?-?-?-?-?-?-?-?-?-?-?- Negative 140 32 -?-?-?-?-?-?-?-?-?-?-?-?- KW- no vb/lof/ct x. good fm. US reviewed. 02/01/25 -?-?-?-?-?-?-?-?-?-?-?-?- 33w 5d 164 lb 2 oz 121/85 Nega tive -?-?-?-?-?-?-?-?-?-?-?-?- Negative 135 34 -?-?-?-?-?-?-?-?-?-?-?-?- KW- no vb/lof/ct x. good fm. US scheduled for 36 weeks. compression hose for occasional episodes of dizziness. 02/15/25 -?-?-?-?-?-?-?-?-?-?-?-?- 35w 5d 166 lb 3 oz 133/78 Nega tive -?-?-?-?-?-?-?-?-?-?-?-?- Negative 135 36 -?-?-?-?-?-?-?-?-?-?-?-?- SM- no vb lof go od fm n oregular ctx 02/26/25 -?-?-?-?-?-?-?-?-?-?-?-?- 37w 2d 167 lb 1 oz 132/87 Nega tive -?-?-?-?-?-?-?-?-?-?-?-?- Negative 145 37 1 -?-?-?-?-?-?-?-?-?-?-?-?- 60 -3 LC- no vb/ ctx/lof. good fm. LC- no vb/ctx/lof. good fm. gbs collected. 03/03/25 -?-?-?-?-?-?-?-?-?-?-?-?- 38w 0d 166 lb 3 oz 131/87 Nega tive -?-?-?-?-?-?-?-?-?-?-?-?- Negative 143 38 1 -?-?-?-?-?-?-?-?-?-?-?-?- MH-NO VB, LOF. N o CTX. No change in cx. Good FM 03/10/25 -?-?-?-?-?-?-?-?-?-?-?-?- 39w 0d 167 lb 1 oz 129/85 -?-?-?-?-?-?-?-?-?-?-?-?- 120 40 Cephalic 1 -?-?-?-?-?-?-?-?-?-?-?-?- 60 -3 KW- no vb/ lof/ctx. good fm. discussed IOL if needed. 03/17/25 -?-?-?-?-?-?-?-?-?-?-?-?- 40w 0d 168 lb 5 oz 135/89 Nega tive -?-?-?-?-?-?-?-?-?-?-?-?- Negative 130 40 Cephalic 2 -?-?-?-?-?-?-?-?-?-?-?-?- 60 -2 KW- no vb/ lof/ctx. good fm. membrane sweep today. IOL set up for next week ACOG First Trimester First Trimester: Discussed Second Trimester Second Trimester: Signs and Symptoms of Labor, Selecting a care provider, Reproductive Life Planning & Contreception, Care Planning, Depression/Anxiety and Intimate Partner Violence; Discussed Tobacco Cessation Third Trimester Third Trimester: Pain Management Plans, Labor support person(s), Immediate Larc, Movement Monitoring, Signs and Symptoms of Preeclampsia and [place] Education ROS Const Reports system reviewed and no additional complaints, except as documented Eyes Reports system reviewed and no additional complaints, except as documented ENT Reports system reviewed and no additional complaints, except as documented Card Reports system reviewed and no additional complaints, except as documented Resp Reports system reviewed and no additional complaints, except as documented GI Reports system reviewed and no additional complaints, except as documented, Denies nausea and Denies vomiting Reports system reviewed and no additional complaints, except as documented Musc Reports system reviewed and no additional complaints, except as documented Skin/Breast Reports system reviewed and no additional complaints, except as documented Neuro Yes system reviewed and no additional complaints, except as documented Psych Reports system reviewed and no additional complaints, except as documented Endo Reports system reviewed and no additional complaints, except as documented Conrad/Lymph Reports system reviewed and no additional complaints, except as documented Aller/Immun Reports system reviewed and no additional complaints, except as documented Exam Const General: cooperative, healthy appearing and no acute distress Orientation: alert, awake and oriented x3 Neck Neck: normal visual inspection and full ROM Resp Effort & Inspection: normal respiratory effort, able to speak in complete sentences and symmetric chest movement GI Inspection: normal to inspection Palpation: soft and other Other: gravid Skin General: no rashes or lesions noted Neuro General: patient alert, patient awake and patient oriented x3 Cognition: normal cognition Speech: speech normal Gait: normal gait Motor: muscle tone normal throughout Extrem General: normal to inspection and full ROM Psych Appearance: grossly normal Mental Status: mental status grossly normal Mood: congruent mood Affect: normal affect Speech and Movement: speech and movement normal Attitude: cooperative Thought Process: normal Thought Content: normal Judgment: judgment good Results POC Urinalysis 2 Dip (Clinic) Office Urine Glucose Negative Last Edit by Annmarie Horta on 03/17/25 09:34 Office Urine Protein Negative Last Edit by Annmarie Horta on 03/17/25 09:34 Coding Level of Care Code Off vis,est,level 3 Diagnoses Anemia affecting in third trimester O99.013 Trimester: third trimester Exposure to parvovirus Z20.828 Abnormal ultrasound O28.3 Supervision of high risk in third trimester O09.93 Trimester: third trimester History of gestational hypertension Z87.59 Asthma J45.909 40 weeks gestation of Z3A.40 Weeks of gestation: 40 weeks Assessment and Plan Assessment and Plan (1) Anemia affecting : Status: Acute Qualifiers: Trimester: third trimester Qualified Code(s): O99.013 - Anemia complicating , third trimester Comment: PO iron:was not taking vitamin due to nausea. Will take Fe in Am and a gummy PNV in evening. (2) Exposure to parvovirus: Status: Acute Comment: immunity. No new virus (3) Abnormal ultrasound: Status: Acute Comment: horseshoe kidney. normal echo. follow up growth at 32 weeks. (4) Supervision of high-risk : Status: Acute Qualifiers: Trimester: third trimester Qualified Code(s): O09.93 - Supervision of high risk , unspecified, third trimester Comment: [id number], PERLA 03/17/25, [facility]: Kia, : Markos (5) History of gestational hypertension: Status: Acute Comment: baby ASA recommended. baseline labs. (6) Asthma: Status: Acute Comment: Childhood (7) : Status: Acute Qualifiers: Weeks of gestation: 40 weeks Qualified Code(s): Z3A.40 - 40 weeks gestation of Comment: GBS negative. NIPT low risk, anatomy reviewed Orders: Orders POC Urinalysis 2 Dip (Clinic) Today Plan Details Additional Comments: ACOG trimester education reviewed and updated. see problem list details for updated plan management information and see below for orders placed at this visit. [place] appropriate handout given. 03/17/25 0941 <Electronically signed by Yao naidu CNM> Date _ Yao Brambila CNM Cosigner Signature: Date (if applicable) CC: ~ [facility] Work Phone: Reason for referral (narrative)No reason for referral information availableWMercy Health [facility] Work Phone: Summary Purpose Family History Unknown Family Member Name Dates Details Family history of cardiac di sorder: Grandfather(V17.49, Z82.49) Status:Active Family history of migraine h eadaches: Mother, Father(V17.2, Z82.0) Status:Active Family history of lung cance r: Grandmother(V16.1, Z80.1) Status:Active Family history of malignant neoplasm of stomach: Grandfather(V16.0, Z80.0) Status:Active Unknown Family Member Name Dates Details Family history of cardiac di sorder: Grandfather(V17.49, Z82.49) Status:Active Family history of migraine h eadaches: Mother, Father(V17.2, Z82.0) Status:Active Family history of lung cance r: Grandmother(V16.1, Z80.1) Status:Active Family history of malignant neoplasm of stomach: Grandfather(V16.0, Z80.0) Status:Active Unknown Family Member Name Dates Details Family history of malignant neoplasm of stomach: Grandfather(V16.0, Z80.0) Status:Active Family history of lung cance r: Grandmother(V16.1, Z80.1) Status:Active Family history of migraine h eadaches: Mother, Father(V17.2, Z82.0) Status:Active Family history of cardiac di sorder: Grandfather(V17.49, Z82.49) Status:Active Unknown Family Member Name Dates Details Family history of cardiac di sorder: Grandfather(V17.49, Z82.49) Status:Active Family history of migraine h eadaches: Mother, Father(V17.2, Z82.0) Status:Active Family history of lung cance r: Grandmother(V16.1, Z80.1) Status:Active Family history of malignant neoplasm of stomach: Grandfather(V16.0, Z80.0) Status:Active Unknown Family Member Name Dates Details Family history of cardiac di sorder: Grandfather(V17.49, Z82.49) Status:Active Family history of migraine h eadaches: Mother, Father(V17.2, Z82.0) Status:Active Family history of lung cance r: Grandmother(V16.1, Z80.1) Status:Active Family history of malignant neoplasm of stomach: Grandfather(V16.0, Z80.0) Status:Active Unknown Family Member Name Dates Details Family history of cardiac di sorder: Grandfather(V17.49, Z82.49) Status:Active Family history of migraine h eadaches: Mother, Father(V17.2, Z82.0) Status:Active Family history of lung cance r: Grandmother(V16.1, Z80.1) Status:Active Family history of malignant neoplasm of stomach: Grandfather(V16.0, Z80.0) Status:Active Unknown Family Member Name Dates Details Family history of cardiac di sorder: Grandfather(V17.49, Z82.49) Status:Active Family history of migraine h eadaches: Mother, Father(V17.2, Z82.0) Status:Active Family history of lung cance r: Grandmother(V16.1, Z80.1) Status:Active Family history of malignant neoplasm of stomach: Grandfather(V16.0, Z80.0) Status:Active Unknown Family Member Name Dates Details Family history of cardiac di sorder: Grandfather(V17.49, Z82.49) Status:Active Family history of migraine h eadaches: Mother, Father(V17.2, Z82.0) Status:Active Family history of lung cance r: Grandmother(V16.1, Z80.1) Status:Active Family history of malignant neoplasm of stomach: Grandfather(V16.0, Z80.0) Status:Active Unknown Family Member Name Dates Details Family history of cardiac di sorder: Grandfather(V17.49, Z82.49) Status:Active Family history of migraine h eadaches: Mother, Father(V17.2, Z82.0) Status:Active Family history of lung cance r: Grandmother(V16.1, Z80.1) Status:Active Family history of malignant neoplasm of stomach: Grandfather(V16.0, Z80.0) Status:Active Unknown Family Member Name Dates Details Family history of cardiac di sorder: Grandfather(V17.49, Z82.49) Status:Active Family history of migraine h eadaches: Mother, Father(V17.2, Z82.0) Status:Active Family history of lung cance r: Grandmother(V16.1, Z80.1) Status:Active Family history of malignant neoplasm of stomach: Grandfather(V16.0, Z80.0) Status:Active Unknown Family Member Name Dates Details Family history of cardiac di sorder: Grandfather(V17.49, Z82.49) Status:Active Family history of migraine h eadaches: Mother, Father(V17.2, Z82.0) Status:Active Family history of lung cance r: Grandmother(V16.1, Z80.1) Status:Active Family history of malignant neoplasm of stomach: Grandfather(V16.0, Z80.0) Status:Active Unknown Family Member Name Dates Details Family history of cardiac di sorder: Grandfather(V17.49, Z82.49) Status:Active Family history of migraine h eadaches: Mother, Father(V17.2, Z82.0) Status:Active Family history of lung cance r: Grandmother(V16.1, Z80.1) Status:Active Family history of malignant neoplasm of stomach: Grandfather(V16.0, Z80.0) Status:Active Unknown Family Member Name Dates Details Family history of cardiac di sorder: Grandfather(V17.49, Z82.49) Status:Active Family history of migraine h eadaches: Mother, Father(V17.2, Z82.0) Status:Active Family history of lung cance r: Grandmother(V16.1, Z80.1) Status:Active Family history of malignant neoplasm of stomach: Grandfather(V16.0, Z80.0) Status:Active Unknown Family Member Name Dates Details Family history of cardiac di sorder: Grandfather(V17.49, Z82.49) Status:Active Family history of migraine h eadaches: Mother, Father(V17.2, Z82.0) Status:Active Family history of lung cance r: Grandmother(V16.1, Z80.1) Status:Active Family history of malignant neoplasm of stomach: Grandfather(V16.0, Z80.0) Status:Active Unknown Family Member Name Dates Details Family history of cardiac di sorder: Grandfather(V17.49, Z82.49) Status:Active Family history of migraine h eadaches: Mother, Father(V17.2, Z82.0) Status:Active Family history of lung cance r: Grandmother(V16.1, Z80.1) Status:Active Family history of malignant neoplasm of stomach: Grandfather(V16.0, Z80.0) Status:Active Unknown Family Member Name Dates Details Family history of cardiac di sorder: Grandfather(V17.49, Z82.49) Status:Active Family history of migraine h eadaches: Mother, Father(V17.2, Z82.0) Status:Active Family history of lung cance r: Grandmother(V16.1, Z80.1) Status:Active Family history of malignant neoplasm of stomach: Grandfather(V16.0, Z80.0) Status:Active Unknown Family Member Name Dates Details Family history of cardiac di sorder: Grandfather(V17.49, Z82.49) Status:Active Family history of migraine h eadaches: Mother, Father(V17.2, Z82.0) Status:Active Family history of lung cance r: Grandmother(V16.1, Z80.1) Status:Active Family history of malignant neoplasm of stomach: Grandfather(V16.0, Z80.0) Status:Active Unknown Family Member Name Dates Details Family history of cardiac di sorder: Grandfather(V17.49, Z82.49) Status:Active Family history of migraine h eadaches: Mother, Father(V17.2, Z82.0) Status:Active Family history of lung cance r: Grandmother(V16.1, Z80.1) Status:Active Family history of malignant neoplasm of stomach: Grandfather(V16.0, Z80.0) Status:Active Unknown Family Member Name Dates Details Family history of cardiac di sorder: Grandfather(V17.49, Z82.49) Status:Active Family history of migraine h eadaches: Mother, Father(V17.2, Z82.0) Status:Active Family history of lung cance r: Grandmother(V16.1, Z80.1) Status:Active Family history of malignant neoplasm of stomach: Grandfather(V16.0, Z80.0) Status:Active Unknown Family Member Name Dates Details Family history of cardiac di sorder: Grandfather(V17.49, Z82.49) Status:Active Family history of migraine h eadaches: Mother, Father(V17.2, Z82.0) Status:Active Family history of lung cance r: Grandmother(V16.1, Z80.1) Status:Active Family history of malignant neoplasm of stomach: Grandfather(V16.0, Z80.0) Status:Active Unknown Family Member Name Dates Details Family history of cardiac di sorder: Grandfather(V17.49, Z82.49) Status:Active Family history of migraine h eadaches: Mother, Father(V17.2, Z82.0) Status:Active Family history of lung cance r: Grandmother(V16.1, Z80.1) Status:Active Family history of malignant neoplasm of stomach: Grandfather(V16.0, Z80.0) Status:Active Unknown Family Member Name Dates Details Family history of cardiac di sorder: Grandfather(V17.49, Z82.49) Status:Active Family history of migraine h eadaches: Mother, Father(V17.2, Z82.0) Status:Active Family history of lung cance r: Grandmother(V16.1, Z80.1) Status:Active Family history of malignant neoplasm of stomach: Grandfather(V16.0, Z80.0) Status:Active Unknown Family Member Name Dates Details Family history of cardiac di sorder: Grandfather(V17.49, Z82.49) Status:Active Family history of migraine h eadaches: Mother, Father(V17.2, Z82.0) Status:Active Family history of lung cance r: Grandmother(V16.1, Z80.1) Status:Active Family history of malignant neoplasm of stomach: Grandfather(V16.0, Z80.0) Status:Active Relationship Condition Age at Onset Recorded Date/T roxanne grandfather Malignant neoplasm of stomach Unknown grandmother Malignant neoplasm of breast Unknown Advance Directives Documents on File Type Date Recorded Patient [place] Expl anation Advance Directives and Living Will Documents on File Type Date Recorded Patient [place] Expl anation Advance Directives and Living Will Reason for Referral Specialty Diagnoses / Procedures Referred By Isha t Referred To Contact Radiology Diagnoses Lymphadenopathy, anterior cervical Procedures US Soft Tissue Neck Brea Sherman MD [address] [address] [address] [place] [address] Referral ID Status Reason Start Date Expiration Date V isits Requested Visits Authorized [id number] Pending Review 08/08/2021 08/08/2022 1 1 Referral ID Status Reason Start Date Expiration Date Visits Re quested Visits Authorized [id number] Closed 04/24/2021 04/24/2022 1 1 Chief Complaint PT IS HERE TODAY FOR A B/P CHECK. DELIVERED VAGINAL ON 04/08/2022. STATES HAS NOTICED HER STOOL HAS BEEN BLACK.Patient here for her 6 week post visit.She had vaginally delivery on 04/08/2022. She has not been interested in control at this time, Has not been sexually active and is exclusively pumping. She is currently bleeding again after stopping for 1 week. Chief Complaint and Reason for Visit Chief Complaint Admit Date Amb Documentation July 31, 2024 1 :47pm NEW OB August 14, 2024 2 :08pm 13wk OB September 11, 2024 9:52 am Reason for Visit Admit Date Asthma August 14, 2024 2 :08pm History of gestational hypertension Febr uary 2024 2:08pm August 14, 2024 2 :08pm Supervision of high-risk Febru juliette 2024 2:08pm Asthma September 11, 2024 9:52 am History of gestational hypertension Rosendo h 2024 9:52am September 11, 2024 9:52 am Supervision of high-risk September 11, 2024 9:52am Chief Complaint Admit Date NEW OB August 14, 2024 2 :08pm 13wk OB September 11, 2024 9:52 am 17wk ob October 08, 2024 2:10 pm 21wk ob November 06, 2024 1:15pm Reason for Visit Admit Date Asthma August 14, 2024 2 :08pm History of gestational hypertension 2024 2:08pm August 14, 2024 2 :08pm Supervision of high-risk Febru juliette 2024 2:08pm Asthma September 11, 2024 9:52 am History of gestational hypertension Rosendo h 2024 9:52am September 11, 2024 9:52 am Supervision of high-risk September 11, 2024 9:52am Asthma October 08, 2024 2:10 pm History of gestational hypertension Apri l 2024 2:10pm October 08, 2024 2:10 pm Supervision of high-risk October 08, 2024 2:10pm Abnormal ultrasound November 06, 2024 1:15pm Asthma November 06, 2024 1:15pm History of gestational hypertension November 06, 2024 1:15pm November 06, 2024 1:15pm Supervision of high-risk November 062024 1:15pm Chief Complaint Admit Date NEW OB August 14, 2024 2 :08pm 13wk OB September 11, 2024 9:52 am 17wk ob October 08, 2024 2:10 pm wk ob November 06, 2024 1:15pm 25wk ob December 02, 2024 3:34p m Reason for Visit Admit Date Asthma August 14, 2024 2 :08pm History of gestational hypertension Febr 2024 2:08pm August 14, 2024 2 :08pm Supervision of high-risk Febru juliette 2024 2:08pm Asthma September 11, 2024 9:52 am History of gestational hypertension Rosendo h 2024 9:52am September 11, 2024 9:52 am Supervision of high-risk September 11, 2024 9:52am Asthma October 08, 2024 2:10 pm History of gestational hypertension Apri l 2024 2:10pm October 08, 2024 2:10 pm Supervision of high-risk October 08, 2024 2:10pm Abnormal ultrasound November 06, 2024 1:15pm Asthma November 06, 2024 1:15pm History of gestational hypertension November 06, 2024 1:15pm November 06, 2024 1:15pm Supervision of high-risk November 062024 1:15pm Abnormal ultrasound December 02, 2024 3:34pm Exposure to parvovirus December 02, 2024 3: 34pm History of gestational hypertension December 02, 2024 3:34pm December 02, 2024 3:34p m RUQ pain December 02, 2024 3:34p m Supervision of high-risk November 062024 3:34pm Chief Complaint Admit Date 13wk OB September 11, 2024 9:52 am 17wk ob October 08, 2024 2:10 pm 21wk ob November 06, 2024 1:15pm 25wk ob December 02, 2024 3:34p m 28wk ob/glucose December 23, 2024 12:4 0pm Reason for Visit Admit Date Asthma September 11, 2024 9:52 am History of gestational hypertension Rosendo 2024 9:52am September 11, 2024 9:52 am Supervision of high-risk September 11, 2024 9:52am Asthma October 08, 2024 2:10 pm History of gestational hypertension Apri l 2024 2:10pm October 08, 2024 2:10 pm Supervision of high-risk October 08, 2024 2:10pm Abnormal ultrasound November 06, 2024 1:15pm Asthma November 06, 2024 1:15pm History of gestational hypertension November 06, 2024 1:15pm November 06, 2024 1:15pm Supervision of high-risk November 062024 1:15pm Abnormal ultrasound December 02, 2024 3:34pm Exposure to parvovirus December 02, 2024 3: 34pm History of gestational hypertension December 02, 2024 3:34pm December 02, 2024 3:34p m RUQ pain December 02, 2024 3:34p m Supervision of high-risk November 062024 3:34pm Abnormal ultrasound December 23 12:40pm Asthma December 23, 2024 12:4 0pm Exposure to parvovirus December 23, 2024 1 2:40pm History of gestational hypertension December 23, 2024 12:40pm December 23, 2024 12:4 0pm RUQ pain December 23, 2024 12:4 0pm Supervision of high-risk December 23, 2024 12:40pm Chief Complaint Admit Date 13wk OB September 11, 2024 9:52 am 17wk ob October 08, 2024 2:10 pm 21wk ob November 06, 2024 1:15pm 25wk ob December 02, 2024 3:34p m 28wk ob/glucose December 23, 2024 12:4 0pm 30wk ob January 04, 2025 2:08 pm Reason for Visit Admit Date Asthma September 11, 2024 9:52 am History of gestational hypertension Rosendo h 2024 9:52am September 11, 2024 9:52 am Supervision of high-risk September 11, 2024 9:52am Asthma October 08, 2024 2:10 pm History of gestational hypertension Apri l 2024 2:10pm October 08, 2024 2:10 pm Supervision of high-risk October 08, 2024 2:10pm Abnormal ultrasound November 06, 2024 1:15pm Asthma November 06, 2024 1:15pm History of gestational hypertension November 06, 2024 1:15pm November 06, 2024 1:15pm Supervision of high-risk November 062024 1:15pm Abnormal ultrasound December 02, 2024 3:34pm Exposure to parvovirus December 02, 2024 3: 34pm History of gestational hypertension December 02, 2024 3:34pm December 02, 2024 3:34p m Supervision of high-risk November 062024 3:34pm RUQ pain December 02, 2024 3:34p m Abnormal ultrasound December 23 12:40pm Asthma December 23, 2024 12:4 0pm Exposure to parvovirus December 23, 2024 1 2:40pm History of gestational hypertension December 23, 2024 12:40pm December 23, 2024 12:4 0pm Supervision of high-risk December 23, 2024 12:40pm RUQ pain December 23, 2024 12:4 0pm Abnormal ultrasound January 04 2:08pm Anemia affecting January 04 2:08pm Exposure to parvovirus January 04, 2025 2 :08pm History of gestational hypertension January 04, 2025 2:08pm January 04, 2025 2:08 pm Supervision of high-risk January 04, 2025 2:08pm RUQ pain January 04, 2025 2:08 pm Chief Complaint Admit Date 17wk ob October 08, 2024 2:10 pm 21wk ob November 06, 2024 1:15pm 25wk ob December 02, 2024 3:34p m 28wk ob/glucose December 23, 2024 12:4 0pm 30wk ob January 04, 2025 2:08 pm 32wk ob January 25, 2025 9:29 am Reason for Visit Admit Date Asthma October 08, 2024 2:10 pm History of gestational hypertension Apri l 2024 2:10pm October 08, 2024 2:10 pm Supervision of high-risk October 08, 2024 2:10pm Abnormal ultrasound November 06, 2024 1:15pm Asthma November 06, 2024 1:15pm History of gestational hypertension November 06, 2024 1:15pm November 06, 2024 1:15pm Supervision of high-risk November 062024 1:15pm Abnormal ultrasound December 02, 2024 3:34pm Exposure to parvovirus December 02, 2024 3: 34pm History of gestational hypertension December 02, 2024 3:34pm December 02, 2024 3:34p m Supervision of high-risk November 062024 3:34pm RUQ pain December 02, 2024 3:34p m Abnormal ultrasound December 23 12:40pm Asthma December 23, 2024 12:4 0pm Exposure to parvovirus December 23, 2024 1 2:40pm History of gestational hypertension December 23, 2024 12:40pm December 23, 2024 12:4 0pm Supervision of high-risk December 23, 2024 12:40pm RUQ pain December 23, 2024 12:4 0pm Abnormal ultrasound January 04 2:08pm Anemia affecting January 04 2:08pm Exposure to parvovirus January 04, 2025 2 :08pm History of gestational hypertension January 04, 2025 2:08pm January 04, 2025 2:08 pm Supervision of high-risk January 04, 2025 2:08pm Abnormal ultrasound January 25 9:29am Anemia affecting January 25 9:29am Asthma January 25, 2025 9:29 am Exposure to parvovirus January 25, 2025 9 :29am History of gestational hypertension January 25, 2025 9:29am January 25, 2025 9:29 am Supervision of high-risk January 25, 2025 9:29am Chief Complaint Admit Date 17wk ob October 08, 2024 2:10 pm 21wk ob November 06, 2024 1:15pm 25wk ob December 02, 2024 3:34p m 28wk ob/glucose December 23, 2024 12:4 0pm 30wk ob January 04, 2025 2:08 pm 32wk ob January 25, 2025 9:29 am 34wk ob February 01, 2025 2:46 pm Reason for Visit Admit Date Asthma October 08, 2024 2:10 pm History of gestational hypertension Apri l 2024 2:10pm October 08, 2024 2:10 pm Supervision of high-risk October 08, 2024 2:10pm Abnormal ultrasound November 06, 2024 1:15pm Asthma November 06, 2024 1:15pm History of gestational hypertension November 06, 2024 1:15pm November 06, 2024 1:15pm Supervision of high-risk November 062024 1:15pm Abnormal ultrasound December 02, 2024 3:34pm Exposure to parvovirus December 02, 2024 3: 34pm History of gestational hypertension December 02, 2024 3:34pm December 02, 2024 3:34p m Supervision of high-risk November 062024 3:34pm RUQ pain December 02, 2024 3:34p m Abnormal ultrasound December 23 12:40pm Asthma December 23, 2024 12:4 0pm Exposure to parvovirus December 23, 2024 1 2:40pm History of gestational hypertension December 23, 2024 12:40pm December 23, 2024 12:4 0pm Supervision of high-risk December 23, 2024 12:40pm RUQ pain December 23, 2024 12:4 0pm Abnormal ultrasound January 04 2:08pm Anemia affecting January 04 2:08pm Exposure to parvovirus January 04, 2025 2 :08pm History of gestational hypertension January 04, 2025 2:08pm January 04, 2025 2:08 pm Supervision of high-risk January 04, 2025 2:08pm Abnormal ultrasound January 25 9:29am Anemia affecting January 25 9:29am Asthma January 25, 2025 9:29 am Exposure to parvovirus January 25, 2025 9 :29am History of gestational hypertension January 25, 2025 9:29am January 25, 2025 9:29 am Supervision of high-risk January 25, 2025 9:29am Abnormal ultrasound February 01 2:46pm Anemia affecting February 01 2:46pm Asthma February 01, 2025 2:46 pm Exposure to parvovirus February 01, 2025 2 :46pm History of gestational hypertension February 01, 2025 2:46pm February 01, 2025 2:46 pm Supervision of high-risk February 01, 2025 2:46pm Chief Complaint Admit Date 21wk ob November 06, 2024 1:15pm 25wk ob December 02, 2024 3:34p m 28wk ob/glucose December 23, 2024 12:4 0pm 30wk ob January 04, 2025 2:08 pm 32wk ob January 25, 2025 9:29 am 34wk ob February 01, 2025 2:46 pm 36 wk ob February 15, 2025 3: 28pm Reason for Visit Admit Date Abnormal ultrasound November 06, 2024 1:15pm Asthma November 06, 2024 1:15pm History of gestational hypertension November 06, 2024 1:15pm November 06, 2024 1:15pm Supervision of high-risk November 062024 1:15pm Abnormal ultrasound December 02, 2024 3:34pm Exposure to parvovirus December 02, 2024 3: 34pm History of gestational hypertension December 02, 2024 3:34pm December 02, 2024 3:34p m Supervision of high-risk November 062024 3:34pm RUQ pain December 02, 2024 3:34p m Abnormal ultrasound December 23 12:40pm Asthma December 23, 2024 12:4 0pm Exposure to parvovirus December 23, 2024 1 2:40pm History of gestational hypertension December 23, 2024 12:40pm December 23, 2024 12:4 0pm Supervision of high-risk December 23, 2024 12:40pm RUQ pain December 23, 2024 12:4 0pm Abnormal ultrasound January 04 2:08pm Anemia affecting January 04 2:08pm Exposure to parvovirus January 04, 2025 2 :08pm History of gestational hypertension January 04, 2025 2:08pm January 04, 2025 2:08 pm Supervision of high-risk January 04, 2025 2:08pm Abnormal ultrasound January 25 9:29am Anemia affecting January 25 9:29am Asthma January 25, 2025 9:29 am Exposure to parvovirus January 25, 2025 9 :29am History of gestational hypertension January 25, 2025 9:29am January 25, 2025 9:29 am Supervision of high-risk January 25, 2025 9:29am Abnormal ultrasound February 01 2:46pm Anemia affecting February 01 2:46pm Asthma February 01, 2025 2:46 pm Exposure to parvovirus February 01, 2025 2 :46pm History of gestational hypertension February 01, 2025 2:46pm February 01, 2025 2:46 pm Supervision of high-risk February 01, 2025 2:46pm Abnormal ultrasound February 15, 2 025 3:28pm Anemia affecting February 15, 2025 3:28pm Asthma February 15, 2025 3: 28pm Exposure to parvovirus February 15, 2025 3:28pm History of gestational hypertension Augu st 2024 3:28pm February 15, 2025 3: 28pm Supervision of high-risk Augus t 2024 3:28pm Chief Complaint Admit Date 21wk ob November 06, 2024 1:15pm 25wk ob December 02, 2024 3:34p m 28wk ob/glucose December 23, 2024 12:4 0pm 30wk ob January 04, 2025 2:08 pm 32wk ob January 25, 2025 9:29 am 34wk ob February 01, 2025 2:46 pm 36 wk ob February 15, 2025 3: 28pm 37 WK OB February 26, 2025 3: 24pm Reason for Visit Admit Date Abnormal ultrasound November 06, 2024 1:15pm Asthma November 06, 2024 1:15pm History of gestational hypertension November 06, 2024 1:15pm November 06, 2024 1:15pm Supervision of high-risk November 062024 1:15pm Abnormal ultrasound December 02, 2024 3:34pm Exposure to parvovirus December 02, 2024 3: 34pm History of gestational hypertension December 02, 2024 3:34pm December 02, 2024 3:34p m Supervision of high-risk November 062024 3:34pm RUQ pain December 02, 2024 3:34p m Abnormal ultrasound December 23 12:40pm Asthma December 23, 2024 12:4 0pm Exposure to parvovirus December 23, 2024 1 2:40pm History of gestational hypertension December 23, 2024 12:40pm December 23, 2024 12:4 0pm Supervision of high-risk December 23, 2024 12:40pm RUQ pain December 23, 2024 12:4 0pm Abnormal ultrasound January 04 2:08pm Anemia affecting January 04 2:08pm Exposure to parvovirus January 04, 2025 2 :08pm History of gestational hypertension January 04, 2025 2:08pm January 04, 2025 2:08 pm Supervision of high-risk January 04, 2025 2:08pm Abnormal ultrasound January 25 9:29am Anemia affecting January 25 9:29am Asthma January 25, 2025 9:29 am Exposure to parvovirus January 25, 2025 9 :29am History of gestational hypertension January 25, 2025 9:29am January 25, 2025 9:29 am Supervision of high-risk January 25, 2025 9:29am Abnormal ultrasound February 01 2:46pm Anemia affecting February 01 2:46pm Asthma February 01, 2025 2:46 pm Exposure to parvovirus February 01, 2025 2 :46pm History of gestational hypertension February 01, 2025 2:46pm February 01, 2025 2:46 pm Supervision of high-risk February 01, 2025 2:46pm Abnormal ultrasound February 15, 2 025 3:28pm Anemia affecting February 15, 2025 3:28pm Asthma February 15, 2025 3: 28pm Exposure to parvovirus February 15, 2025 3:28pm History of gestational hypertension Augu 2024 3:28pm February 15, 2025 3: 28pm Supervision of high-risk Augus t 2024 3:28pm Abnormal ultrasound February 26, 2 025 3:24pm Anemia affecting February 26, 2025 3:24pm Asthma February 26, 2025 3: 24pm Exposure to parvovirus February 26, 2025 3:24pm History of gestational hypertension Augu st 2024 3:24pm February 26, 2025 3: 24pm Supervision of high-risk Augus t 2024 3:24pm Chief Complaint Admit Date 21wk ob November 06, 2024 1:15pm 25wk ob December 02, 2024 3:34p m 28wk ob/glucose December 23, 2024 12:4 0pm 30wk ob January 04, 2025 2:08 pm 32wk ob January 25, 2025 9:29 am 34wk ob February 01, 2025 2:46 pm 36 wk ob February 15, 2025 3: 28pm 37 WK OB February 26, 2025 3: 24pm 38 WK OB March 03, 2025 2: 58pm Reason for Visit Admit Date Abnormal ultrasound November 06, 2024 1:15pm Asthma November 06, 2024 1:15pm History of gestational hypertension November 06, 2024 1:15pm November 06, 2024 1:15pm Supervision of high-risk November 062024 1:15pm Abnormal ultrasound December 02, 2024 3:34pm Exposure to parvovirus December 02, 2024 3: 34pm History of gestational hypertension December 02, 2024 3:34pm December 02, 2024 3:34p m Supervision of high-risk November 062024 3:34pm RUQ pain December 02, 2024 3:34p m Abnormal ultrasound December 23 12:40pm Asthma December 23, 2024 12:4 0pm Exposure to parvovirus December 23, 2024 1 2:40pm History of gestational hypertension December 23, 2024 12:40pm December 23, 2024 12:4 0pm Supervision of high-risk December 23, 2024 12:40pm RUQ pain December 23, 2024 12:4 0pm Abnormal ultrasound January 04 2:08pm Anemia affecting January 04 2:08pm Exposure to parvovirus January 04, 2025 2 :08pm History of gestational hypertension January 04, 2025 2:08pm January 04, 2025 2:08 pm Supervision of high-risk January 04, 2025 2:08pm Abnormal ultrasound January 25 9:29am Anemia affecting January 25 9:29am Asthma January 25, 2025 9:29 am Exposure to parvovirus January 25, 2025 9 :29am History of gestational hypertension January 25, 2025 9:29am January 25, 2025 9:29 am Supervision of high-risk January 25, 2025 9:29am Abnormal ultrasound February 01 2:46pm Anemia affecting February 01 2:46pm Asthma February 01, 2025 2:46 pm Exposure to parvovirus February 01, 2025 2 :46pm History of gestational hypertension February 01, 2025 2:46pm February 01, 2025 2:46 pm Supervision of high-risk February 01, 2025 2:46pm Abnormal ultrasound February 15, 2 025 3:28pm Anemia affecting February 15, 2025 3:28pm Asthma February 15, 2025 3: 28pm Exposure to parvovirus February 15, 2025 3:28pm History of gestational hypertension Augu st 2024 3:28pm February 15, 2025 3: 28pm Supervision of high-risk Augus t 2024 3:28pm Abnormal ultrasound February 26, 2 025 3:24pm Anemia affecting February 26, 2025 3:24pm Asthma February 26, 2025 3: 24pm Exposure to parvovirus February 26, 2025 3:24pm History of gestational hypertension Augu st 2024 3:24pm February 26, 2025 3: 24pm Supervision of high-risk Augus t 2024 3:24pm Abnormal ultrasound March 03, 2 025 2:58pm Anemia affecting March 03, 2025 2:58pm Asthma March 03, 2025 2: 58pm Exposure to parvovirus March 03, 2025 2:58pm History of gestational hypertension Augu st 2024 2:58pm March 03, 2025 2: 58pm Supervision of high-risk Augus t 2024 2:58pm Reason for Visit Admit Date Abnormal ultrasound November 06, 2024 1:15pm Asthma November 06, 2024 1:15pm History of gestational hypertension November 06, 2024 1:15pm November 06, 2024 1:15pm Supervision of high-risk November 062024 1:15pm Abnormal ultrasound December 02, 2024 3:34pm Exposure to parvovirus December 02, 2024 3: 34pm History of gestational hypertension December 02, 2024 3:34pm December 02, 2024 3:34p m Supervision of high-risk November 062024 3:34pm RUQ pain December 02, 2024 3:34p m Abnormal ultrasound December 23 12:40pm Asthma December 23, 2024 12:4 0pm Exposure to parvovirus December 23, 2024 1 2:40pm History of gestational hypertension December 23, 2024 12:40pm December 23, 2024 12:4 0pm Supervision of high-risk December 23, 2024 12:40pm RUQ pain December 23, 2024 12:4 0pm Abnormal ultrasound January 04 2:08pm Anemia affecting January 04 2:08pm Exposure to parvovirus January 04, 2025 2 :08pm History of gestational hypertension January 04, 2025 2:08pm January 04, 2025 2:08 pm Supervision of high-risk January 04, 2025 2:08pm Abnormal ultrasound January 25 9:29am Anemia affecting January 25 9:29am Asthma January 25, 2025 9:29 am Exposure to parvovirus January 25, 2025 9 :29am History of gestational hypertension January 25, 2025 9:29am January 25, 2025 9:29 am Supervision of high-risk January 25, 2025 9:29am Abnormal ultrasound February 01 2:46pm Anemia affecting February 01 2:46pm Asthma February 01, 2025 2:46 pm Exposure to parvovirus February 01, 2025 2 :46pm History of gestational hypertension February 01, 2025 2:46pm February 01, 2025 2:46 pm Supervision of high-risk February 01, 2025 2:46pm Abnormal ultrasound February 15, 2 025 3:28pm Anemia affecting February 15, 2025 3:28pm Asthma February 15, 2025 3: 28pm Exposure to parvovirus February 15, 2025 3:28pm History of gestational hypertension Febu 2024 3:28pm February 15, 2025 3: 28pm Supervision of high-risk Augus t 2024 3:28pm Abnormal ultrasound February 26, 2 025 3:24pm Anemia affecting February 26, 2025 3:24pm Asthma February 26, 2025 3: 24pm Exposure to parvovirus February 26, 2025 3:24pm History of gestational hypertension Augu st 2024 3:24pm February 26, 2025 3: 24pm Supervision of high-risk Augus t 2024 3:24pm Abnormal ultrasound March 03, 2 025 2:58pm Anemia affecting March 03, 2025 2:58pm Exposure to parvovirus March 03, 2025 2:58pm History of gestational hypertension Augu st 2024 2:58pm March 03, 2025 2: 58pm Supervision of high-risk Augus t 2024 2:58pm Chief Complaint Admit Date 25wk ob December 02, 2024 3:34p m 28wk ob/glucose December 23, 2024 12:4 0pm 30wk ob January 04, 2025 2:08 pm 32wk ob January 25, 2025 9:29 am 34wk ob February 01, 2025 2:46 pm 36 wk ob February 15, 2025 3: 28pm 37 WK OB February 26, 2025 3: 24pm 38 WK OB March 03, 2025 2: 58pm 39wk ob March 10, 2025 2:20pm Reason for Visit Admit Date Abnormal ultrasound December 02, 2024 3:34pm Exposure to parvovirus December 02, 2024 3: 34pm History of gestational hypertension December 02, 2024 3:34pm December 02, 2024 3:34p m Supervision of high-risk November 062024 3:34pm RUQ pain December 02, 2024 3:34p m Abnormal ultrasound December 23 12:40pm Asthma December 23, 2024 12:4 0pm Exposure to parvovirus December 23, 2024 1 2:40pm History of gestational hypertension December 23, 2024 12:40pm December 23, 2024 12:4 0pm Supervision of high-risk December 23, 2024 12:40pm RUQ pain December 23, 2024 12:4 0pm Abnormal ultrasound January 04 2:08pm Anemia affecting January 04 2:08pm Exposure to parvovirus January 04, 2025 2 :08pm History of gestational hypertension January 04, 2025 2:08pm January 04, 2025 2:08 pm Supervision of high-risk January 04, 2025 2:08pm Abnormal ultrasound January 25 9:29am Anemia affecting January 25 9:29am Asthma January 25, 2025 9:29 am Exposure to parvovirus January 25, 2025 9 :29am History of gestational hypertension January 25, 2025 9:29am January 25, 2025 9:29 am Supervision of high-risk January 25, 2025 9:29am Abnormal ultrasound February 01 2:46pm Anemia affecting February 01 2:46pm Asthma February 01, 2025 2:46 pm Exposure to parvovirus February 01, 2025 2 :46pm History of gestational hypertension February 01, 2025 2:46pm February 01, 2025 2:46 pm Supervision of high-risk February 01, 2025 2:46pm Abnormal ultrasound February 15, 2 025 3:28pm Anemia affecting February 15, 2025 3:28pm Asthma February 15, 2025 3: 28pm Exposure to parvovirus February 15, 2025 3:28pm History of gestational hypertension Augu st 2024 3:28pm February 15, 2025 3: 28pm Supervision of high-risk Augus t 2024 3:28pm Abnormal ultrasound February 26, 2 025 3:24pm Anemia affecting February 26, 2025 3:24pm Asthma February 26, 2025 3: 24pm Exposure to parvovirus February 26, 2025 3:24pm History of gestational hypertension Augu st 2024 3:24pm February 26, 2025 3: 24pm Supervision of high-risk Augus t 2024 3:24pm Abnormal ultrasound March 03, 2 025 2:58pm Anemia affecting March 03, 2025 2:58pm Exposure to parvovirus March 03, 2025 2:58pm History of gestational hypertension Augu st 2024 2:58pm March 03, 2025 2: 58pm Supervision of high-risk Augus t 2024 2:58pm Abnormal ultrasound March 10, 2025 2:20pm Anemia affecting March 2:20pm Asthma March 10, 2025 2:20pm Exposure to parvovirus March 10 2:20pm History of gestational hypertension Sept emb2024 2:20pm March 10, 2025 2:20pm Supervision of high-risk Septe 2024 2:20pm Chief Complaint Admit Date 25wk ob December 02, 2024 3:34p m 28wk ob/glucose December 23, 2024 12:4 0pm 30wk ob January 04, 2025 2:08 pm 32wk ob January 25, 2025 9:29 am 34wk ob February 01, 2025 2:46 pm 36 wk ob February 15, 2025 3: 28pm 37 WK OB February 26, 2025 3: 24pm 38 WK OB March 03, 2025 2: 58pm 39wk ob March 10, 2025 2:20pm 40wk ob *HAPPY DUE DATE March 17, 2025 9:16am Reason for Visit Admit Date Abnormal ultrasound December 02, 2024 3:34pm Exposure to parvovirus December 02, 2024 3: 34pm History of gestational hypertension December 02, 2024 3:34pm December 02, 2024 3:34p m Supervision of high-risk November 062024 3:34pm RUQ pain December 02, 2024 3:34p m Abnormal ultrasound December 23 12:40pm Asthma December 23, 2024 12:4 0pm Exposure to parvovirus December 23, 2024 1 2:40pm History of gestational hypertension December 23, 2024 12:40pm December 23, 2024 12:4 0pm Supervision of high-risk December 23, 2024 12:40pm RUQ pain December 23, 2024 12:4 0pm Abnormal ultrasound January 04 2:08pm Anemia affecting January 04 2:08pm Exposure to parvovirus January 04, 2025 2 :08pm History of gestational hypertension January 04, 2025 2:08pm January 04, 2025 2:08 pm Supervision of high-risk January 04, 2025 2:08pm Abnormal ultrasound January 25 9:29am Anemia affecting January 25 9:29am Asthma January 25, 2025 9:29 am Exposure to parvovirus January 25, 2025 9 :29am History of gestational hypertension January 25, 2025 9:29am January 25, 2025 9:29 am Supervision of high-risk January 25, 2025 9:29am Abnormal ultrasound February 01 2:46pm Anemia affecting February 01 2:46pm Asthma February 01, 2025 2:46 pm Exposure to parvovirus February 01, 2025 2 :46pm History of gestational hypertension February 01, 2025 2:46pm February 01, 2025 2:46 pm Supervision of high-risk February 01, 2025 2:46pm Abnormal ultrasound February 15, 2 025 3:28pm Anemia affecting February 15, 2025 3:28pm Asthma February 15, 2025 3: 28pm Exposure to parvovirus February 15, 2025 3:28pm History of gestational hypertension Augu st 2024 3:28pm February 15, 2025 3: 28pm Supervision of high-risk Augus t 2024 3:28pm Abnormal ultrasound February 26, 2 025 3:24pm Anemia affecting February 26, 2025 3:24pm Asthma February 26, 2025 3: 24pm Exposure to parvovirus February 26, 2025 3:24pm History of gestational hypertension Augu st 2024 3:24pm February 26, 2025 3: 24pm Supervision of high-risk Augus t 2024 3:24pm Abnormal ultrasound March 03, 2 025 2:58pm Anemia affecting March 03, 2025 2:58pm Exposure to parvovirus March 03, 2025 2:58pm History of gestational hypertension Augu st 2024 2:58pm March 03, 2025 2: 58pm Supervision of high-risk Augus t 2024 2:58pm Abnormal ultrasound March 10, 2025 2:20pm Anemia affecting March 2:20pm Asthma March 10, 2025 2:20pm Exposure to parvovirus March 10 2:20pm History of gestational hypertension Sept 2024 2:20pm March 10, 2025 2:20pm Supervision of high-risk Septe [email or web address] 2:20pm Abnormal ultrasound March 9:16am Anemia affecting March 9:16am Asthma March 17, 2025 9:16am Exposure to parvovirus March 17, 2 025 9:16am History of gestational hypertension Sept 2024 9:16am March 17, 2025 9:16am Supervision of high-risk Anaya jara 2024 9:16am Additional Source Comments INFORMATION SOURCE (unrecogn ized section and content) DATE CREATED AUTHOR 01/01/2018 [facility] DATE CREATED AUTHOR AUTHOR'S ORGANIZ ATION 04/25/2021 [facility] DATE CREATED AUTHOR AUTHOR'S ORGANIZ ATION 05/07/2021 [facility] DATE CREATED AUTHOR AUTHOR'S ORGANIZ ATION 05/19/2022 [employer] DATE CREATED AUTHOR AUTHOR'S ORGANIZ ATION 09/19/2022 [facility] DATE CREATED AUTHOR AUTHOR'S ORGANIZ ATION 10/12/2022 [facility] DATE CREATED AUTHOR AUTHOR'S ORGANIZ ATION 11/18/2022 [facility] DATE CREATED AUTHOR AUTHOR'S ORGANIZ ATION 05/03/2023 [facility] DATE CREATED AUTHOR AUTHOR'S ORGANIZ ATION 07/31/2024 [facility] DATE CREATED AUTHOR AUTHOR'S ORGANIZ ATION 12/05/2024 [facility] DATE CREATED AUTHOR AUTHOR'S ORGANIZ ATION 01/30/2025 [facility] DATE CREATED AUTHOR AUTHOR'S ORGANIZ ATION 03/12/2025 [facility] Care Teams (unrecognized sec tion and content) Team Status: Active Member Role Status Dates DEFINED NOT Primary Care Provider Active Team Status: Inactive Member Role Status Dates Dr. Thelma Taveras MD Attending Provider Active Start: August 14, 2024 End: August 14, 2024 Team Status: Inactive Member Role Status Dates DEFINED NOT Primary Care Provider Active Start: August 14, 2024 End: August 14, 2024 Dr. Thelma Taveras MD Attending Provider Active Start: August 14, 2024 End: August 14, 2024 Dr. Thelma Taveras MD Referring Provider Active Start: August 14, 2024 End: August 14, 2024 Team Status: Inactive Member Role Status Dates DEFINED NOT Primary Care Provider Active Start: August 27, 2024 End: August 27, 2024 Yao Brambila CNM Attending Provider Active S tart: August 27, 2024 End: August 27, 2024 Yao Brambila CNM Referring Provider Active S tart: August 27, 2024 End: August 27, 2024 Team Status: Inactive Member Role Status Dates Yao Brambila CNM Attending Provider Active S tart: September 11, 2024 End: September 11, 2024 DEFINED NOT Primary Care Provider Active Start: September 11, 2024 End: September 11, 2024 DEFINED NOT Referring Provider Active Start: Dionicio [facility] 2024 End: September 11, 2024 Team Status: Inactive Member Role Status Dates DEFINED NOT Primary Care Provider Active Start: September 11, 2024 End: September 11, 2024 Yao Brambila CNM Attending Provider Active S tart: September 11, 2024 End: September 11, 2024 Yao Brambila CNM Referring Provider Active S tart: September 11, 2024 End: September 11, 2024 Team Status: Inactive Member Role Status Dates DEFINED NOT Primary Care Provider Active Start: October 08, 2024 End: October 08, 2024 DEFINED NOT Referring Provider Active Start: 2024 End: October 08, 2024 Dr. Gem Ross DO Attending Provider Activ e Start: October 08, 2024 End: October 08, 2024 Team Status: Inactive Member Role Status Dates DEFINED NOT Primary Care Provider Active Start: November 06, 2024 End: November 06, 2024 DEFINED NOT Referring Provider Active Start: Dionicio lewis 2024 End: November 06, 2024 Yao Brambila CNM Attending Provider Active S tart: November 06, 2024 End: November 06, 2024 Team Status: Inactive Member Role Status Dates DEFINED NOT Primary Care Provider Active Start: November 25, 2024 End: November 25, 2024 Dr. Gem Ross DO Attending Provider Activ e Start: November 25, 2024 End: November 25, 2024 Dr. Gem Ross DO Referring Provider Activ e Start: November 25, 2024 End: November 25, 2024 [employer] Relationship Specialty Start Date End Date Brea Sherman MD [address] [id number] PCP - General Internal Medicine 04/24/21 [employer] Relationship Specialty Start Date End Date Brea Sherman MD [address] [id number] PCP - General Internal Medicine 04/24/21 [employer] Operator Relationship Specialty Start Date End Date Brea Sherman MD [address] [phone] PCP - General Internal Medicine 04/24/21 [employer] Operator Relationship Specialty Start Date End Date Brea Sherman MD [address] [phone] PCP - General Internal Medicine 04/24/21 [employer] Operator Relationship Specialty Start Date End Date Aster Frank DO [address] [place] [address] [facility], [place] [id number] PCP - General 08/25/21 Team Status: Active Member Role Status Dates Olive Day RN Attending Provider Active St art: July 31, 2024 Team Status: Inactive Member Role Status Dates DEFINED NOT Primary Care Provider Active Start: December 02, 2024 End: December 02, 2024 DEFINED NOT Referring Provider Active Start: Dionicio lewis 2024 End: December 02, 2024 Andre Avila NP, REFINERY OPERATOR [employer] Attending Provider Active Start: December 02, 2024 End: December 02, 2024 Team Status: Inactive Member Role Status Dates DEFINED NOT Referring Provider Active Start: 2024 End: December 23, 2024 Dr. Thelma Taveras MD Attending Provider Active Start: December 23, 2024 End: December 23, 2024 Team Status: Active Member Role Status Dates Dr. Thelma Taveras MD Attending Provider Active Start: December 23, 2024 Dr. Thelma Taveras MD Referring Provider Active Start: December 23, 2024 Team Status: Inactive Member Role Status Dates Dr. Thelma Taveras MD Attending Provider Active Start: December 23, 2024 End: December 23, 2024 Dr. Thelma Taveras MD Referring Provider Active Start: December 23, 2024 End: December 23, 2024 Team Status: Inactive Member Role/Relationship Status Dates Yao Brambila CNM Attending Provider Active S tart: September 11, 2024 End: September 11, 2024 DEFINED NOT Primary Care Provider Active Start: September 11, 2024 End: September 11, 2024 DEFINED NOT Referring Provider Active Start: Dionicio [facility] 2024 End: September 11, 2024 Team Status: Inactive Member Role/Relationship Status Dates DEFINED NOT Primary Care Provider Active Start: September 11, 2024 End: September 11, 2024 Yao Brambila CNM Attending Provider Active S tart: September 11, 2024 End: September 11, 2024 Yao Brambila CNM Referring Provider Active S tart: September 11, 2024 End: September 11, 2024 Team Status: Inactive Member Role/Relationship Status Dates DEFINED NOT Primary Care Provider Active Start: October 08, 2024 End: October 08, 2024 DEFINED NOT Referring Provider Active Start: 2024 End: October 08, 2024 Dr. Gem Ross DO Attending Provider Activ e Start: October 08, 2024 End: October 08, 2024 Team Status: Inactive Member Role/Relationship Status Dates DEFINED NOT Primary Care Provider Active Start: November 06, 2024 End: November 06, 2024 DEFINED NOT Referring Provider Active Start: Dionicio lewis 2024 End: November 06, 2024 Yao Brambila CNM Attending Provider Active S tart: November 06, 2024 End: November 06, 2024 Team Status: Inactive Member Role/Relationship Status Dates DEFINED NOT Primary Care Provider Active Start: November 25, 2024 End: November 25, 2024 Dr. Gem Ross DO Attending Provider Activ e Start: November 25, 2024 End: November 25, 2024 Dr. Gem Ross DO Referring Provider Activ e Start: November 25, 2024 End: November 25, 2024 Team Status: Inactive Member Role/Relationship Status Dates DEFINED NOT Primary Care Provider Active Start: December 02, 2024 End: December 02, 2024 DEFINED NOT Referring Provider Active Start: Dionicio lewis 2024 End: December 02, 2024 Andre Avila NP, REFINERY OPERATOR [employer]BREAKING-C Attending Provider Active Start: December 02, 2024 End: December 02, 2024 Team Status: Inactive Member Role/Relationship Status Dates DEFINED NOT Referring Provider Active Start: Magaly boyle 2024 End: December 23, 2024 Dr. Thelma Taveras MD Attending Provider Active Start: December 23, 2024 End: December 23, 2024 Team Status: Inactive Member Role/Relationship Status Dates Dr. Thelma Taveras MD Attending Provider Active Start: December 23, 2024 End: December 23, 2024 Dr. Thelma Taveras MD Referring Provider Active Start: December 23, 2024 End: December 23, 2024 Team Status: Inactive Member Role/Relationship Status Dates DEFINED NOT Referring Provider Active Start: Magaly 2024 End: January 04, 2025 Andre Avila REFINERY OPERATOR VISBREAKING, REFINERY OPERATOR [employer]BREAKING-C Attending Provider Active Start: January 04, 2025 End: January 04, 2025 Team Status: Inactive Member Role/Relationship Status Dates DEFINED NOT Primary Care Provider Active Start: October 08, 2024 End: October 08, 2024 DEFINED NOT Referring Provider Active Start: 2024 End: October 08, 2024 Dr. Gem Ross DO Attending Provider Activ e Start: October 08, 2024 End: October 08, 2024 Team Status: Inactive Member Role/Relationship Status Dates DEFINED NOT Primary Care Provider Active Start: November 06, 2024 End: November 06, 2024 DEFINED NOT Referring Provider Active Start: Dionicio lewis 2024 End: November 06, 2024 Yao Brambila CNM Attending Provider Active S tart: November 06, 2024 End: November 06, 2024 Team Status: Inactive Member Role/Relationship Status Dates DEFINED NOT Primary Care Provider Active Start: November 25, 2024 End: November 25, 2024 Dr. Gem Ross DO Attending Provider Activ e Start: November 25, 2024 End: November 25, 2024 Dr. Gem Ross DO Referring Provider Activ e Start: November 25, 2024 End: November 25, 2024 Team Status: Inactive Member Role/Relationship Status Dates DEFINED NOT Primary Care Provider Active Start: December 02, 2024 End: December 02, 2024 DEFINED NOT Referring Provider Active Start: Ma y 2024 End: December 02, 2024 Andre Avila NP, REFINERY OPERATOR VISBREAKING-C Attending Provider Active Start: December 02, 2024 End: December 02, 2024 Team Status: Inactive Member Role/Relationship Status Dates DEFINED NOT Referring Provider Active Start: Magaly 2024 End: December 23, 2024 Dr. Thelma Taveras MD Attending Provider Active Start: December 23, 2024 End: December 23, 2024 Team Status: Inactive Member Role/Relationship Status Dates Dr. Thelma Taveras MD Attending Provider Active Start: December 23, 2024 End: December 23, 2024 Dr. Thelma Taveras MD Referring Provider Active Start: December 23, 2024 End: December 23, 2024 Team Status: Inactive Member Role/Relationship Status Dates DEFINED NOT Referring Provider Active Start: Magaly ne 2024 End: January 04, 2025 Andre Avila REFINERY OPERATOR VISBREAKING, REFINERY OPERATOR VISBREAKING-C Attending Provider Active Start: January 04, 2025 End: January 04, 2025 Team Status: Inactive Member Role/Relationship Status Dates DEFINED NOT Referring Provider Active Start: Magaly valentine 2024 End: January 25, 2025 Yao Brambila CNM Attending Provider Active S tart: January 25, 2025 End: January 25, 2025 Team Status: Inactive Member Role/Relationship Status Dates DEFINED NOT Referring Provider Active Start: Magaly valentine 2024 End: February 01, 2025 Yao Brambila CNM Attending Provider Active S tart: February 01, 2025 End: February 01, 2025 Team Status: Inactive Member Role/Relationship Status Dates DEFINED NOT Primary Care Provider Active Start: November 06, 2024 End: November 06, 2024 DEFINED NOT Referring Provider Active Start: Dionicio lewis 2024 End: November 06, 2024 Yao Brambila CNM Attending Provider Active S tart: November 06, 2024 End: November 06, 2024 Team Status: Inactive Member Role/Relationship Status Dates DEFINED NOT Primary Care Provider Active Start: November 25, 2024 End: November 25, 2024 Dr. Gem Ross , Attending Provider Activ e Start: November 25, 2024 End: November 25, 2024 Dr. Gem Ross , Referring Provider Activ e Start: November 25, 2024 End: November 25, 2024 Team Status: Inactive Member Role/Relationship Status Dates DEFINED NOT Primary Care Provider Active Start: December 02, 2024 End: December 02, 2024 DEFINED NOT Referring Provider Active Start: Ma y 2024 End: December 02, 2024 Andre Avila REFINERY OPERATOR VISBREAKING, REFINERY OPERATOR VISBREAKING-C Attending Provider Active Start: December 02, 2024 End: December 02, 2024 Team Status: Inactive Member Role/Relationship Status Dates DEFINED NOT Referring Provider Active Start: 2024 End: December 23, 2024 Dr. Thelma Taveras MD Attending Provider Active Start: December 23, 2024 End: December 23, 2024 Team Status: Inactive Member Role/Relationship Status Dates Dr. Thelma Taveras MD Attending Provider Active Start: December 23, 2024 End: December 23, 2024 Dr. Thelma Taveras MD Referring Provider Active Start: December 23, 2024 End: December 23, 2024 Team Status: Inactive Member Role/Relationship Status Dates DEFINED NOT Referring Provider Active Start: 2024 End: January 04, 2025 Andre Avila NP REFINERY OPERATOR V[employer]BREAKING-C Attending Provider Active Start: January 04, 2025 End: January 04, 2025 Team Status: Inactive Member Role/Relationship Status Dates DEFINED NOT Referring Provider Active Start: 2024 End: January 25, 2025 Yao Brambila CNM Attending Provider Active S tart: January 25, 2025 End: January 25, 2025 Team Status: Inactive Member Role/Relationship Status Dates DEFINED NOT Referring Provider Active Start: 2024 End: February 01, 2025 Yao Brambila CNM Attending Provider Active S tart: February 01, 2025 End: February 01, 2025 Team Status: Inactive Member Role/Relationship Status Dates Dr. Thelma Taveras MD Attending Provider Active Start: February 15, 2025 End: February 15, 2025 Team Status: Inactive Member Role/Relationship Status Dates Krystyna Ramos CNM Attending Provider Active Start: February 26, 2025 End: February 26, 2025 Team Status: Active Member Role/Relationship Status Dates Krystyna Ramos CNM Attending Provider Active Start: February 26, 2025 Krystyna Ramos CNM Referring Provider Active Start: February 26, 2025 Team Status: Inactive Member Role/Relationship Status Dates Andre Avila NP REFINERY OPERATOR VISBREAKING-C Attending Provider Active Start: March 03, 2025 End: March 03, 2025 Team Status: Inactive Member Role/Relationship Status Dates Krystyna Rmaos CNM Attending Provider Active Start: February 26, 2025 End: February 26, 2025 Krystyna Ramos CNM Referring Provider Active Start: February 26, 2025 End: February 26, 2025 Team Status: Inactive Member Role/Relationship Status Dates DEFINED NOT Primary Care Provider Active Start: November 25, 2024 End: November 25, 2024 Dr. Gem Ross , Attending Provider Activ e Start: November 25, 2024 End: November 25, 2024 Dr. Gem Ross , DO Referring Provider Activ e Start: November 25, 2024 End: November 25, 2024 Team Status: Inactive Member Role/Relationship Status Dates DEFINED NOT Primary Care Provider Active Start: December 02, 2024 End: December 02, 2024 DEFINED NOT Referring Provider Active Start: Dionicio lewis 2024 End: December 02, 2024 Andre Avila NP, REFINERY OPERATOR VISBREAKING-C Attending Provider Active Start: December 02, 2024 End: December 02, 2024 Team Status: Inactive Member Role/Relationship Status Dates DEFINED NOT Referring Provider Active Start: 2024 End: December 23, 2024 Dr. Thelma Taveras MD Attending Provider Active Start: December 23, 2024 End: December 23, 2024 Team Status: Inactive Member Role/Relationship Status Dates Dr. Thelma Taveras MD Attending Provider Active Start: December 23, 2024 End: December 23, 2024 Dr. Thelma Taveras MD Referring Provider Active Start: December 23, 2024 End: December 23, 2024 Team Status: Inactive Member Role/Relationship Status Dates DEFINED NOT Referring Provider Active Start: 2024 End: January 04, 2025 Andre Avila NP, REFINERY OPERATOR VISBREAKING-C Attending Provider Active Start: January 04, 2025 End: January 04, 2025 Team Status: Inactive Member Role/Relationship Status Dates DEFINED NOT Referring Provider Active Start: 2024 End: January 25, 2025 Yao Brambila CNM Attending Provider Active S tart: January 25, 2025 End: January 25, 2025 Team Status: Inactive Member Role/Relationship Status Dates DEFINED NOT Referring Provider Active Start: ly 2024 End: February 01, 2025 Yao Brambila CNM Attending Provider Active S tart: February 01, 2025 End: February 01, 2025 Team Status: Inactive Member Role/Relationship Status Dates Dr. Thelma Taveras MD Attending Provider Active Start: February 15, 2025 End: February 15, 2025 Team Status: Inactive Member Role/Relationship Status Dates Krystyna Ramos CNM Attending Provider Active Start: February 26, 2025 End: February 26, 2025 Team Status: Inactive Member Role/Relationship Status Dates Krystyna Ramos CNM Attending Provider Active Start: February 26, 2025 End: February 26, 2025 Krystyna Ramos CNM Referring Provider Active Start: February 26, 2025 End: February 26, 2025 Team Status: Inactive Member Role/Relationship Status Dates Andre Avila NP, REFINERY OPERATOR VISBREAKING-C Attending Provider Active Start: March 03, 2025 End: March 03, 2025 Team Status: Inactive Member Role/Relationship Status Dates Yao Brambila CNM Attending Provider Active S tart: March 10, 2025 End: March 10, 2025 Team Status: Inactive Member Role/Relationship Status Dates Yao Brambila CNM Attending Provider Active S tart: March 17, 2025 End: March 17, 2025 Reason for Visit (unrecogniz ed section and content) Reason Comments Lymph nodes in neck are swollen symptoms x 4 months Reason Comments Flu Symptoms Headaches and body a ches for the past 4+ days, pt had a recorded temp at home of 102F. <item> Privacy Markings (unrecogniz ed section and content) Section Author: Jennifer Angulo PROHIBITION ON REDISCLOSURE OF CONFIDENTIAL INFORMATION This notice accompanies a disclosure of information concerning a client made to you with the consent of such client. Goals (unrecognized section and content) Goals may be documented in a n alternate section FOR RECORDS PERTAINING TO PATIENTS WHO ARE OR HAVE BEEN ENROLLED IN A CHEMICAL DEPENDENCY/SUBSTANCEABUSE PROGRAM, SOME INFORMATION MAY BE OMITTED. This clinical summary was aggregated from multiple sources. Caution should be exercised in using it in the provision of clinical care. This summary normalizes information from multiple sources, and as a consequence, information in this document may materially change the coding, format and clinical context of patient data. In addition, data may be omitted in some cases. CLINICAL DECISIONS SHOULD BE BASED ON THE PRIMARY CLINICAL RECORDS. [facility]. provides no warranty or guarantee of the accuracy or completeness of information in this document.
--- OUTSIDE RECORDS SUMMARY | 2025-03-18 03:41 | XMS RPT_ITS | CCD ---
Author Organization [facility] Care Team Providers Care Treasury Agent Name Role Phone Kannan Briscoe Unavailable Unavailable Kannan Briscoe Unavailable Unavailable [facility] Unavailable Unavailable [facility] Unavailable Unavailable LANEBREA Williamson Attending Unavailable LANEBREA Primary Care Unavailable LANEBREA Admitting Unavailable LANE, BREA Primary Care Unavailable LANEBREA Attending Unavailable LAEN, BREA Referring Unavailable LANE, BREA Primary Care Unavailable Lane Brea EASTMAN Primary Care Provider Aster Frank Unavailable Unavailable Unavailable Unavailable Unavailable Aster Frank Unavailable Unavailable Required, No Pcp Unavailable Unavailable Scottie Umanzor Unavailable Unavailable Ev Mccartney Unavailable Unavailable Otoniel, Dr. Aster Schreiber Primary Care Unavailabl e [place], Dr. Aster Schreiber Attending Unavailabl e Otoniel, Dr. Aster Schreiber Referring Unavailabl e [place], Dr. Aster Schreiber Primary Care UnavailMD EV Joe Admitting Unava ilable MD EV MCCARTNEY Referring Unava ilable [place], Dr. Aster Schreiber Attending Unavailabl e Otoniel, Dr. Aster Schreiber Primary Care Unavailabl e [place], Dr. Aster Schreiber Attending Unavailabl e [place], Dr. Aster Schreiber Referring Unavailabl e [place], Dr. Aster Schreiber Primary Care UnavailMD EV Joe Attending Unava ilable MD EV MCCARTNEY Referring Unava ilable [place], Dr. Aster Schreiber Primary Care Unavailabl e Noé, Dr. Scottie Bay Attending Unavaila ble Otoniel, Dr. Aster Schreiber Referring Unavailabl e Otoniel, Dr. Aster Schreiber Primary Care Unavailabl e [place], Dr. Aster Schreiber Attending Unavailabl e Orzech, Monika Luis Attending Unavailable Rad Denney Attending Unavailable Otoniel, Dr. Aster Schreiber Attending Unavailabl e [place], Dr. Aster Schreiber Referring Unavailabl e [place], Dr. Aster Schreiber Primary Care Unavailabl MD EV Dominguez Attending Unava ilable Otoniel, Dr. Aster Schreiber Primary Care Unavailabl hill MCCARTNEY, MD EV PRUITT Referring Unava ilable Otoniel, Dr. Aster Schreiber Attending Unavailabl e Otoniel, Dr. Aster Schreiber Referring Unavailabl e Otoniel, Dr. Aster Schreiber Primary Care Unavailabl e [place], Dr. Aster Schreiber Attending Unavailabl e [place], Dr. Aster Schreiber Referring Unavailabl e [place], Dr. Aster Schreiber Primary Care Unavailabl MD EV Dominguez Attending Unava ilable [place], Dr. Aster Schreiber Primary Care Unavailabl MD EV Dominguez Attending Unava ilable MCCARTNEYMD EV POLLARD Referring Unava ilable [place], Dr. Aster Schreiber Attending Unavailabl e [place], Dr. Aster Schreiber Primary Care Unavailabl e [place], Dr. Aster Schreiber Referring Unavailabl e [place], Dr. Aster Schreiber Attending Unavailabl e [place], Dr. Aster Schreiber Primary Care Unavailabl e [place], Dr. Aster Schreiber Attending Unavailabl e Otoniel, Dr. Aster Schreiber Primary Care Unavailabl e [place], Dr. Aster Schreiber Referring Unavailabl e [place], Dr. Aster Schreiber Attending Unavailabl e [place], Dr. Aster Schreiber Primary Care Unavailabl e [place], Dr. Aster Schreiber Referring Unavailabl e [place], Dr. Aster Schreiber Attending Unavailabl e Otoniel, Dr. Aster Schreiber Primary Care Unavailabl e [place], Dr. Aster Schreiber Referring Unavailabl e Otoniel, Dr. Aster Schreiber Attending Unavailabl e [place], Dr. Aster Schreiber Primary Care Unavailabl e [place], Dr. Aster Schreiber Referring Unavailabl e Otoniel, Dr. Aster Schreiber Attending Unavailabl e Otoniel, Dr. Aster Schreiber Referring Unavailabl e [place], Dr. Aster Schreiber Primary Care Unavailabl e [place], Dr. Aster Schreiber Primary Care Unavailabl e MD MARIA LUISA LEUNG Referring Unavail able MD MARIA LUISA LEUNG Attending Unavail able LANEBREA Primary Care Unavailable KAREN MARTIN Attending Unavailable LANE, BREA Primary Care Unavailable EILEEN AVILA Attending Unava ilable Otoniel Kassie GALICIAalex Maguire Primary Care Provider ASTER FRANK A Primary Care Unavailable PADMINI SOSA Attending Unavailable Olive Day RN Attending Provider Unavailabl e Dr. Thelma Taveras MD Attending Provider [phone] NOT, DEFINED Primary Care Provider Unavailabl e Dr. Thelma Taveras MD Referring Provider Yao Brambila CNM Attending Provider [phone] [...] Unavailable Yao Brambila CNM Attending Provider [phone] YAO BRAMBILA Referring Unavailable ATUL MOHAN Attending [...] Attending Provider Richard CNM, Krystyna Attending Provider [phone] Richard CNM, Krystyna Referring Provider [phone] NOT, DEFINED Primary Care Provider Unavailabl e NOT, DEFINED Referring Provider Unavailable Kosta CNM, Yao Attending Provider Thelma Taveras Referring Unavailable MarcanthonyArronon Attending Unavailable Ramos, Krystyna Referring Unavailable Ramos, Krystyna Attending Unavailable NOT, DEFINED Referring Unavailable MarcanthonyArronon Attending Unavailable NOT, DEFINED Primary Care Unavailable NOT, DEFINED Referring Unavailable Yao Brambila Attending Unavailable NOT, DEFINED Primary Care Unavailable NOT, DEFINED Referring Unavailable [place], Molly Attending Unavailable NOT, DEFINED Primary Care Unavailable Yao Brambila Attending Unavailable Yao Brambila Referring Unavailable NOT, DEFINED Primary Care Unavailable Marcanthirma, Thelma Referring Unavailable Marcanthirma, Thelma Attending Unavailable NOT, DEFINED Primary Care Unavailable Yao Brambila Attending Unavailable Yao Brambila Referring Unavailable MarcanthThelma solis Attending Unavailable Krystyna Ramos Attending Unavailable NOT, DEFINED Primary Care Unavailable AustinDayney Referring Unavailable [place], Molly Attending Unavailable Gem Ross Referring Unavailabl e Gem Ross Attending Unavailabl e NOT, DEFINED Primary Care Unavailable Yao Brambila Attending Unavailable [place], Molly Attending Unavailable NOT, DEFINED Referring Unavailable Princeton, Molly Attending Unavailable NOT, DEFINED Referring Unavailable Yao Brambila Attending Unavailable Yao Brambila Attending Unavailable NOT, DEFINED Referring Unavailable [...] PO July 31, 2024 1:00am polymyxin b 27515 unt/ml / trimethoprim 1 mg/ml ophthalmic solution (1 source) Dihydrofolate Reductase Inhibitor Antibacterial, Polymyxin-class Antibacterial Start: 06-26-2022 End: 07-03-2022 polymyxin B-trimethoprim Opth Radha 1 drop(s), OPTH, q3hr for 7 day(s), 10 mL, Refill(s) 0, [facility]/pharmacy #[id number] Start Date: 06/26/22 Stop Date: 07/03/22 [...] day Quantity: 60 Refills: 0 Ordered: 08-May-2022 [id number] DO, Brett Start : 08-May-2022 Active ibuprofen [...] , PERLA 03/17/25, PC: Kia, : Markos [id number], PERLA 5, PC: Kia, : Markos [id number], PERLA 5, Kamden Boy PC: Kia, : [...] heart dis and oth dis of the [facility] [place]] Onset: 09-14-2022 Episodic Residual codes; unclassified (20 [...] Test Name Value Interpretation Reference Range Facility Insurance Solicitor Office Visit Reporton 03-10-2025 Insurance Solicitor Office Visit Report [facility] [address] [place] [address], [address] [place] [address] OFFICE VISIT Date of Service: 03/10/25 MR#: [id number] Acct: [id number] Name: NISSA CRAIN Rep #: [id number] : 1995 Provider: MARIKA Eugene ams Age/Sex: 30/F [place] [facility] [place] Status: Signed Intake Vital Signs 02/01/25 14:55 03/03/25 14:51 03/10/25 14:23 03/10/25 14:27 Height 5 ft 3 in 5 ft 3 in 5 ft 3 in 5 ft 3 in Weight: 167 lb 1 oz BMI 29.5 BP 129/85 H Intake Visit Reasons: 39wk ob Surgical Lead Required: No Is patient in pain?: No [...] brother number of children: 1 current occupation: [employer] current occupational exposures/hazards: No pets and animals: [...] physical activity do you participate in: none antoni/latter-day: None seatbelt use: always do you feel [...] 6lbs 9oz Male epidural Samariti an - [place] Delivery Date: 04/08/22 Last Updated by: [...] lb 120/73 (more content not included)... Normal [facility] - Chemistry and C hemistry - challengeOrdered By: Gem Molina on 03-03-2025 Glucose Ql (U) Negative [facility] - UrinalysisOrder ed By: Gem Molina on 03-03-2025 Protein Ql (U) Negative [facility] Insurance Solicitor Office Visit Reporton 03-03-2025 Insurance Solicitor Office Visit Report [facility] [address], [address] [place] [address] OFFICE VISIT Date of Service: 03/03/25 MR#: [id number] Acct: [id number] Name: NISSA CRAIN Rep #: [id number] : 1995 Provider: STEFANIE huang Age/Sex: 30/F Location[place] [facility] [place] Status: Signed Intake Vital Signs 02/01/25 14:55 02/26/25 15:25 03/03/25 14:51 03/03/25 14:51 Height 5 ft 3 in 5 ft 3 in 5 ft 3 in 5 ft 3 in Weight: 166 lb 3 oz BMI 29.4 BP 131/87 H Intake Visit Reasons: 38 WK OB Surgical Lead Required: No Is patient in pain?: No [...] brother number of children: 1 current occupation: [employer] current occupational exposures/hazards: No pets and animals: [...] physical activity do you participate in: none antoni/latter-day: None seatbelt use: always do you feel [...] term 6lbs 9oz Male epidural Samariti an [facility] [place] Delivery Date: 04/08/22 Last Updated by: [...] 150 lb (more content not included)... Normal [facility] Rule out Beta Strep (Grp. B) on 02-28-2025 JOY Group B Beta Streptococcus is not isolated. Normal [facility] Comment on above: Performed By: #### M 100.0320 ####[facility] [address] [place], [place], [id number] Laboratory - Chemistry and C hemistry - challengeOrdered By: Krystyna Richard on 02-26-2025 Glucose Ql (U) Negative [facility] - UrinalysisOrder ed By: Krystyna Richard on 02-26-2025 Protein Ql (U) Negative [facility] Insurance Solicitor Office Visit Reporton 02-26-2025 Insurance Solicitor Office Visit Report [facility] [address], [address] [place] [address] OFFICE VISIT Date of Service: 02/26/25 MR#: [id number] Acct: [id number] Name: NISSA CRAIN Rep #: [id number] : 1995 Provider: MARIKA hamm Age/Sex: 30/F Location[place] [facility] [place] Status: Signed Intake Vital Signs 02/01/25 14:55 02/15/25 15:37 02/26/25 15:25 Height 5 ft 3 in 5 ft 3 in 5 ft 3 in Weight: 167 lb 1 oz BMI 29.5 BP 132/87 H Intake Visit Reasons: 37 WK OB Surgical Lead Required: No Is patient in pain?: No [...] brother number of children: 1 current occupation: [employer] current occupational exposures/hazards: No pets and animals: [...] physical activity do you participate in: none antoni/latter-day: None seatbelt use: always do you feel [...] term 6lbs 9oz Male epidural Samariti an [facility] [place] Delivery Date: 04/08/22 Last Updated by: [...] 2d 1 (more content not included)... Normal [facility] Screening beta-hemolytic Str eptococcus cultureOrdered By: Krystyna Ramos on 02-26-2025 Beta-hemolytic Streptococcus culture Group B Beta Streptococcus is not isolated. [facility] - Chemistry and C hemistry - challengeOrdered By: Thelma Taveras on 02-15-2025 Glucose Ql (U) Negative [facility] - UrinalysisOrder ed By: Thelma Taveras on 02-15-2025 Protein Ql (U) Negative [facility] Insurance Solicitor Office Visit Reporton 02-15-2025 Insurance Solicitor Office Visit Report [facility] [address], [address] [place] [address] OFFICE VISIT Date of Service: 02/15/25 MR#: [id number] Acct: [id number] Name: NISSA CRAIN Rep #: [id number] : 1995 Provider: Dr. Thelma stearns MD Age/Sex: 30/F Location: [facility] [place] Status: Signed Intake Vital Signs 12/23/24 13:00 02/01/25 14:55 02/15/25 15:34 02/15/25 15:37 Height 5 ft 3 in 5 ft 3 in 5 ft 3 in 5 ft 3 in Weight: 166 lb 3 oz BMI 29.4 BP 133/78 H Intake Visit Reasons: 36 wk ob Surgical Lead Required: No Is patient in pain?: No [...] brother number of children: 1 current occupation: [employer] current occupational exposures/hazards: No pets and animals: [...] physical activity do you participate in: none antoni/latter-day: None seatbelt use: always do you feel [...] term 6lbs 9oz Male epidural Samariti an [facility] Delivery Date: 04/08/22 Last Updated by: Olive [...] 2d 150 (more content not included)... Normal [facility] - Chemistry and C hemistry - challengeOrdered By: Yao Brambila on 02-01-2025 Glucose Ql (U) Negative [facility] - UrinalysisOrder ed By: Yao Brambila on 02-01-2025 Protein Ql (U) Negative [facility] Insurance Solicitor Office Visit Reporton 02-01-2025 Insurance Solicitor Office Visit Report [facility] [address], [address] [place] [address] OFFICE VISIT Date of Service: 02/01/25 MR#: [id number] Acct: [id number] Name: NISSA CRAIN Rep #: [id number] : 1995 Provider: MARIKA Eugene ams Age/Sex: 30/F Location: [facility] [place] Status: Signed Intake Vital Signs 12/02/24 15:37 01/25/25 09:30 02/01/25 14:55 Height 5 ft 3 in 5 ft 3 in 5 ft 3 in Weight: 164 lb 2 oz BMI 29.0 BP 121/85 H Intake Visit Reasons: 34wk ob Chief Complaint: 34wk OB Surgical Lead Required: No Is patient in pain?: No [...] brother number of children: 1 current occupation: [employer] current occupational exposures/hazards: No pets and animals: [...] physical activity do you participate in: none antoni/latter-day: None seatbelt use: always do you feel [...] term 6lbs 9oz Male epidural Samaripollo an [facility] [place] Delivery Date: 04/08/22 Last Updated by: [...] -???-???-???-???-???-???- ???-???- (more content not included)... Normal [facility] - Chemistry and C hemistry - challengeOrdered By: Yao Brambila on 01-25-2025 Glucose Ql (U) Negative [facility] - UrinalysisOrder ed By: Yao Brambila on 01-25-2025 Protein Ql (U) Negative [facility] Insurance Solicitor Office Visit Reporton 01-25-2025 Insurance Solicitor Office Visit Report [facility] [address], [address] [place] [address] OFFICE VISIT Date of Service: 01/25/25 MR#: [id number] Acct: [id number] Name: NISSA CRAIN Rep #: [id number] : 1995 Provider: MARIKA Eugene ams Age/Sex: 30/F Location: [facility] [place] Status: Signed Intake Vital Signs 12/02/24 15:37 01/04/25 14:10 01/25/25 09:30 Height 5 ft 3 in 5 ft 3 in 5 ft 3 in Weight: 161 lb 8 oz BMI 28.5 BP 123/78 H Intake Visit Reasons: 32wk ob Chief Complaint: 32wk OB Surgical Lead Required: No Is patient in pain?: No [...] brother number of children: 1 current occupation: [employer] current occupational exposures/hazards: No pets and animals: [...] physical activity do you participate in: none antoni/latter-day: None seatbelt use: always do you feel [...] term 6lbs 9oz Male epidural Samariti an [facility] Delivery Date: 04/08/22 Last Updated by: Olive [...] -???-???-???-???-???-???- ???-???- (more content not included)... Normal [facility] - Chemistry and C hemistry - challengeOrdered By: Andre Avila on 01-04-2025 Glucose Ql (U) Negative [facility] - UrinalysisOrder ed By: Andre Avila on 01-04-2025 Protein Ql (U) Negative [facility] Insurance Solicitor Office Visit Reporton 01-04-2025 Insurance Solicitor Office Visit Report [facility] [address], [address] [place] [address] OFFICE VISIT Date of Service: 01/04/25 MR#: [id number] Acct: [id number] Name: NISSA CRAIN Rep #: [id number] : 1995 Provider: STEFANIE huang Age/Sex: 29/F Location[place] [facility] [place] Status: Signed Intake Vital Signs 12/02/24 15:37 12/23/24 13:00 01/04/25 14:10 Height 5 ft 3 in 5 ft 3 in 5 ft 3 in Weight: 160 lb 8 oz BMI 28.4 BP 112/68 Intake Visit Reasons: 30wk ob Chief Complaint: 30 Week OB Surgical Lead Required: No Is patient in pain?: No [...] brother number of children: 1 current occupation: [employer] current occupational exposures/hazards: No pets [...] physical activity do you participate in: none antoni/latter-day: None seatbelt use: always do you feel [...] term 6lbs 9oz Male epidural Samaripollo an [facility] Delivery Date: 04/08/22 Last Updated by: Olive [...] 150 l (more content not included)... Normal [facility] Absolute lymphocyte countOrd ered By: Andre Mckeontings on 12-23-2024 Lymphocytes Auto (Unsp spec) [#/Vol] 1.87 10*3/uL 0.83-4.51 [facility] Absolute neutrophil countOrd ered By: Andre Mckeontings on 12-23-2024 Neutrophils (Bld) [#/Vol] 10.9 10*3/uL High 2.0-7.7 [facility] Automated lymphocyte count a s percentage of total leukocytesOrdered By: Andre Austin on 12-23-2024 Lymphocytes/100 WBC Auto (Unsp spec) 13.7 % Low 19-41 [facility] Basophil percentageOrdered B y: Andre Avila on 12-23-2024 Basophils/100 WBC (Bld) 0.4 % 0-1 [facility] CBC W/Diff, Automatedon 12-06 Absolute Lymph 1.87 X10 3/uL Normal 0.83-4.51 [facility] Comment on above: Order Comment: Comme nts: Drawn at [facility] Performed By: #### L 501.0250, L509.8002, L3890.6006, L100.0100 ####[facility] [address] [place], [address] Absolute Neut 10.9 X10 3/uL High 2.0-7.7 [facility] Comment on above: Order Comment: Comme nts: Drawn at [facility] Performed By: #### L 501.0250, L509.8002, L3890.6006, L100.0100 ####[facility] [address] [place], [address] Basophils/100 WBC (Bld) 0.4 % Normal 0-1 [facility] Comment on above: Order Comment: Comme nts: Drawn at [facility] Performed By: #### L 501.0250, L509.8002, L3890.6006, L100.0100 ####[facility] [address] [place], [address] Eosinophils/100 WBC (Bld) 0.9 % Normal 0-5 [facility] Comment on above: Order Comment: Comme nts: Drawn at [facility] Performed By: #### L 501.0250, L509.8002, L3890.6006, L100.0100 ####[facility] [address] [place], [address] Erythrocyte distribution width (RBC) [Ratio] 13.3 % Normal 11.6-14.6 [facility] Comment on above: Order Comment: Comme nts: Drawn at [facility] Performed By: #### L 501.0250, L509.8002, L3890.6006, L100.0100 ####[facility] [address] [place], [address] Hematocrit (Bld) [Volume fraction] 30.4 % Low 37-47 [facility] Comment on above: Order Comment: Comme nts: Drawn at [facility] Performed By: #### L 501.0250, L509.8002, L3890.6006, L100.0100 ####[facility] [address] [place], [address] Hemoglobin (Bld) [Mass/Vol] 10.3 g/dL Low 12.0-15.0 [facility] Comment on above: Order Comment: Comme nts: Drawn at [facility] Performed By: #### L 501.0250, L509.8002, L3890.6006, L100.0100 ####[facility] [address] [place], [address] IG% 0.800 Normal 0.0-0.9 [facility] Comment on above: Order Comment: Comme nts: Drawn at [facility] Result Comment: IG% - Immature Granulocytes (promyelocytes, myelocytes and metamyelocytes) > 1% indicates that a LEFT SHIFT is Present. Performed By: #### L 501.0250, L509.8002, L3890.6006, L100.0100 ####[facility] [address] [place], [address] Lymphocytes/100 WBC (Bld) 13.7 % Low 19-41 [facility] Comment on above: Order Comment: Comme nts: Drawn at [facility] Performed By: #### L 501.0250, L509.8002, L3890.6006, L100.0100 ####[facility] [address] [place], [address] MCH (RBC) [Entitic mass] 31.0 pg Normal 27.0-32.0 [facility] Comment on above: Order Comment: Comme nts: Drawn at [facility] Performed By: #### L 501.0250, L509.8002, L3890.6006, L100.0100 ####[facility] [address] [place], [address] MCHC (RBC) [Mass/Vol] 33.9 g/dL Normal 32-36 [facility] Comment on above: Order Comment: Comme nts: Drawn at [facility] Performed By: #### L 501.0250, L509.8002, L3890.6006, L100.0100 ####[facility] [address] [place], [address] MCV (RBC) [Entitic vol] 91.6 fL Normal 81-99 [facility] Comment on above: Order Comment: Comme nts: Drawn at [facility] Performed By: #### L 501.0250, L509.8002, L3890.6006, L100.0100 ####[facility] [address] [place], [address] Monocytes/100 WBC (Bld) 4.8 % Normal 0-10 [facility] Comment on above: Order Comment: Comme nts: Drawn at [facility] Performed By: #### L 501.0250, L509.8002, L3890.6006, L100.0100 ####[facility] [address] [place], [address] Neutrophils/100 WBC (Bld) 79.4 % High 47-70 [facility] Comment on above: Order Comment: Comme nts: Drawn at [facility] Performed By: #### L 501.0250, L509.8002, L3890.6006, L100.0100 ####[facility] [address] [place], [address] Nucleated RBC (Bld) [#/Vol] 0 10*3/uL Normal 0-5 [facility] Comment on above: Order Comment: Comme nts: Drawn at [facility] Performed By: #### L 501.0250, L509.8002, L3890.6006, L100.0100 ####[facility] [address] [place], [address] Platelet mean volume (Bld) [Entitic vol] 9.6 fL Normal 6.2-12.0 [facility] Comment on above: Order Comment: Comme nts: Drawn at [facility] Performed By: #### L 501.0250, L509.8002, L3890.6006, L100.0100 ####[facility] [address] [place], [address] Platelets (Bld) [#/Vol] 338 10*3/uL Normal 150-450 [facility] Comment on above: Order Comment: Comme nts: Drawn at [facility] Performed By: #### L 501.0250, L509.8002, L3890.6006, L100.0100 ####[facility] [address] [place], [address] RBC (Bld) [#/Vol] 3.32 10*6/uL Low 4.2-5.4 [facility] Comment on above: Order Comment: Comme nts: Drawn at [facility] Performed By: #### L 501.0250, L509.8002, L3890.6006, L100.0100 ####[facility] [address] [place], [address] RDW SD 44.3 fl High 35.1-43.9 [facility] Comment on above: Order Comment: Comme nts: Drawn at [facility] Performed By: #### L 501.0250, L509.8002, L3890.6006, L100.0100 ####[facility] [address] [place], [address] WBC (Bld) [#/Vol] 13.7 10*3/uL High 4.4-11.0 [facility] Comment on above: Order Comment: Comme nts: Drawn at [facility] Performed By: #### L 501.0250, L509.8002, L3890.6006, L100.0100 ####[facility] [address] [place], [address] Eosinophil percentageOrdered By: Andre Avila on 12-23-2024 Eosinophils/100 WBC (Bld) 0.9 % 0-5 [facility] Erythrocyte distribution wid th ratioOrdered By: Andre Avila on 12-23-2024 Erythrocyte distribution width (RBC) [Ratio] 13.3 % 11.6-14.6 [facility] Erythrocyte distribution wid th standard deviationOrdered By: Andre Avila on 12-23-2024 Erythrocyte distribution width (RBC) [Ratio] 44.3 fl High 35.1-43.9 [facility] Glucose Challenge Gest 1H 50 jessica 12-23-2024 GLU GEST 50g 1H 116 mg/dL Normal 70-140 [facility] Comment on above: Performed By: #### L 501.0250, L509.8002, L3890.6006, L100.0100 ####[facility] [address] [place], [place], [id number] Glucose measurement at 2 terri rs post-dose gestational glucose tolerance testOrdered By: Andre Avila on 12-23-2024 Glucose [Mass/Vol] 116 mg/dL 70-140 [facility] HIVon 12-23-2024 HIV Non-Reactive Normal Nonreactive [facility] Comment on above: Result Comment: Non- Reactive Reactive Repeatedly reactive samples must be confirmed according to CDC recommended confirmatory algorithms. The subresults for either HIVAG or AHIV can be used as an aid in the selection of the confirmation algorithm for reactive samples. Send out specimens with Reactive results to [facility] for confirmation. Order the HIV antibody detection and differentiation: #[id number] Performed By: #### L 501.0250, L509.8002, L3890.6006, L100.0100 ####[facility] [address] [place], [place], [id number] Hematocrit Auto (Bld) [Volum e fraction]Ordered By: Andre Avila on 12-23-2024 Hematocrit (Bld) [Volume fraction] 30.4 % Low 37-47 [facility] Hemoglobin measurementOrdere d By: Andre Avila on 12-23-2024 Hemoglobin (Bld) [Mass/Vol] 10.3 g/dL Low 12.0-15.0 [facility] Immature granulocytes/100 WB C Auto (Bld)Ordered By: Andre Avila on 12-23-2024 Immature granulocytes/100 WBC (Bld) 0.800 % 0.0-0.9 [facility] Comment on above: IG% - Immature Granu locytes (promyelocytes, myelocytes and metamyelocytes) > 1% indicates that a LEFT SHIFT is Present. Laboratory - Chemistry and C hemistry - challengeOrdered By: Thelma Taveras on 12-23-2024 Glucose Ql (U) Negative [facility] Laboratory - UrinalysisOrder ed By: Thelma Taveras on 12-23-2024 Protein Ql (U) Negative [facility] MCV (mean corpuscular volume ) determinationOrdered By: Andre Avila on 12-23-2024 MCV (RBC) [Entitic vol] 91.6 fL 81-99 [facility] Mean corpuscular hemoglobin (MCH) determinationOrdered By: Andre Avila on 12-23-2024 MCH (RBC) [Entitic mass] 31.0 pg 27.0-32.0 [facility] Mean corpuscular hemoglobin concentration (MCHC) determinationOrdered By: Andre Avila on 12-23-2024 MCHC (RBC) [Mass/Vol] 33.9 g/dL 32-36 [facility] Mean platelet volume determi nationOrdered By: Andre Avila on 12-23-2024 Platelet mean volume (Bld) [Entitic vol] 9.6 fL 6.2-12.0 [facility] Monocyte percentageOrdered B y: Andre Avila on 12-23-2024 Monocytes/100 WBC (Bld) 4.8 % 0-10 [facility] Neutrophil percentageOrdered By: Andre Avila on 12-23-2024 Neutrophils/100 WBC (Bld) 79.4 % High 47-70 [facility] No Panel InformationOrdered By: Andre Avila on 12-23-2024 HIV (1&2) Antibody Non-Reactive Nonreactive [facility] Comment on above: Non-ReactiveReactive Repeatedly reactive samples must be confirmed according to CDC recommended confirmatory algorithms. The subresults for either HIVAG or AHIV can be used as an aid in the selection of the confirmation algorithm for reactive samples.Send out specimens with Reactive results to [facility] for confirmation.Order the HIV antibody detection and differentiation: #[id number] Nucleated red blood cell per centageOrdered By: Andre Avila on 12-23-2024 Nucleated RBC/100 WBC (Bld) [Ratio] 0 % 0-5 [facility] Insurance Solicitor Office Visit Reporton 12-23-2024 Insurance Solicitor Office Visit Report [facility] [address], [address] [place] [address] OFFICE VISIT Date of Service: 12/23/24 MR#: [id number] Acct: [id number] Name: NISSA CRAIN Rep #: [id number] : 1995 Provider: Dr. Thelma stearns MD Age/Sex: 29/F Location[place] [facility] Status: Signed Intake Vital Signs 10/08/24 14:53 12/02/24 15:37 12/23/24 12:57 12/23/24 13:00 Height 5 ft 3 in 5 ft 3 in 5 ft 3 in 5 ft 3 in Weight: 157 lb 4 oz BMI 27.8 BP 118/74 Intake Visit Reasons: 28wk ob/glucose Surgical Lead Required: No Is patient in pain?: No [...] brother number of children: 1 current occupation: [employer] current occupational exposures/hazards: No pets and animals: [...] physical activity do you participate in: none antoni/latter-day: None seatbelt use: always do you feel [...] term 6lbs 9oz Male epidural Samariti an [facility] [place] Delivery Date: 04/08/22 Last Updated by: [...] ???-???-???-???-???-???- 21w (more content not included)... Normal [facility] Platelet countOrdered By: Alexander Avila on 12-23-2024 Platelets (Bld) [#/Vol] 338 10*3/uL 150-450 [facility] RBC Auto (Bld) [#/Vol]Ordere d By: Andre Avila on 12-23-2024 RBC (Bld) [#/Vol] 3.32 10*6/uL Low 4.2-5.4 [facility] Syphilis Antibodieson 2024 Syphilis Abs Non-Reactive Normal Nonreactive [facility] Comment on above: Performed By: #### L 501.0250, L509.8002, L3890.6006, L100.0100 ####[facility] [id number] [place], [address] White blood cell (WBC) count Ordered By: Andre Avila on 06-18-2025 WBC (Bld) [#/Vol] 13.7 10*3/uL High 4.4-11.0 [facility] BILE ACIDS, TOTALon 12-03-19 25 Bile acid [Moles/Vol] 6.1 umol/L Normal <7.5 [place] Comment on above: Order Comment: Abel esquivel Type: BLOOD SPECIMEN Ordering Facility: [facility] Address: [address] [place] [address] Result Comment: Refe rence interval applies to [...] umol/L Performed By: #### B RAMIRO #### [facility] CLIA [id number] [address] [place] [address] [place] CBC W Auto Differential pane l (Bld)on 12-02-2024 Basophils (Bld) [#/Vol] 0.06 10*3/uL Normal <0.11 [facility] Comment on above: Order Comment: Abel esquivel Type: BLOOD SPECIMEN Ordering Facility: [facility] Address: [address] [place] [address] Performed By: #### 5 7021-8 #### [facility] CLIA [id number] [address] [place] [address] [place] Basophils/100 WBC (Bld) 0.4 % Normal [facility] Comment on above: Order Comment: Speci men Type: BLOOD SPECIMEN Ordering Facility: [facility] Address: [address] [place] [address] Performed By: #### 5 7021-8 #### [facility] CLIA [id number] [address] [place] [address] [place] Differential cell count method Nom (Bld) Auto Normal [facility] Comment on above: Order Comment: Speci men Type: BLOOD SPECIMEN Ordering Facility: [facility] Address: [address] [place] [address] Performed By: #### 5 7021-8 #### [facility] CLIA [id number] [address] [place] [address] [place] Eosinophils (Bld) [#/Vol] 0.14 10*3/uL Normal <0.46 [facility] Comment on above: Order Comment: Speci men Type: BLOOD SPECIMEN Ordering Facility: [facility] Address: [address] [place] [address] Performed By: #### 5 7021-8 #### [facility] CLIA [id number] [address] [place] [address] [place] Eosinophils/100 WBC (Bld) 0.9 % Normal [facility] Comment on above: Order Comment: Speci men Type: BLOOD SPECIMEN Ordering Facility: [facility] Address: [address] [place] [address] Performed By: #### 5 7021-8 #### [facility] CLIA [id number] [address] [place] [address] [place] Erythrocyte distribution width (RBC) [Ratio] 13.9 % Normal 11.5-15.0 [facility] Comment on above: Order Comment: Speci men Type: BLOOD SPECIMEN Ordering Facility: [facility] Address: [address] [place] [address] Performed By: #### 5 7021-8 #### [facility] CLIA [id number] [address] [place] [address] [place] Hematocrit (Bld) [Volume fraction] 32.4 % Low 36.0-46.0 [facility] Comment on above: Order Comment: Speci men Type: BLOOD SPECIMEN Ordering Facility: [facility] Address: [address] [place] [address] Performed By: #### 5 7021-8 #### [facility] CLIA [id number] [address] [place] [address] [place] Hemoglobin (Bld) [Mass/Vol] 11.0 g/dL Low 11.5-15.5 [facility] Comment on above: Order Comment: Speci men Type: BLOOD SPECIMEN Ordering Facility: [facility] Address: [address] [place] [address] Performed By: #### 5 7021-8 #### [facility] CLIA [id number] [address] [place] [address] [place] Immature granulocytes (Bld) [#/Vol] 0.11 10*3/uL High <0.10 [facility] Comment on above: Order Comment: Speci men Type: BLOOD SPECIMEN Ordering Facility: [facility] Address: [address] [place] [address] Performed By: #### 5 7021-8 #### [facility] CLIA [id number] [address] [place] [address] [place] Immature granulocytes/100 WBC (Bld) 0.7 % Normal [facility] Comment on above: Order Comment: Speci men Type: BLOOD SPECIMEN Ordering Facility: [facility] Address: [address] [address] Performed By: #### 5 7021-8 #### [facility] CLIA [id number] [address] [place] [address] [place] Lymphocytes (Bld) [#/Vol] 2.11 10*3/uL Normal 1.00-4.00 [facility] Comment on above: Order Comment: Speci men Type: BLOOD SPECIMEN Ordering Facility: [facility] Address: [address] [place] [address] Performed By: #### 5 7021-8 #### [facility] CLIA [id number] [address] [place] [address] [place] Lymphocytes/100 WBC (Bld) 13.3 % Normal [facility] Comment on above: Order Comment: Speci men Type: BLOOD SPECIMEN Ordering Facility: [facility] Address: [address] [place] [address] Performed By: #### 5 7021-8 #### [facility] CLIA [id number] [address] [place], [place] [address] [place] MCH (RBC) [Entitic mass] 31.2 pg Normal 26.0-34.0 [facility] Comment on above: Order Comment: Speci men Type: BLOOD SPECIMEN Ordering Facility: [facility] Address: [address] [place] [address] Performed By: #### 5 7021-8 #### [facility] CLIA [id number] [address] [place], [place] [address] [place] MCHC (RBC) [Mass/Vol] 34.0 g/dL Normal 30.5-36.0 [place] Comment on above: Order Comment: Speci men Type: BLOOD SPECIMEN Ordering Facility: [facility] Address: [address] [place] [address] Performed By: #### 5 7021-8 #### [facility] CLIA [id number] [address] [place] [address] [place] [address] [place] MCV (RBC) [Entitic vol] 91.8 fL Normal 80.0-100.0 [facility] Comment on above: Order Comment: Speci men Type: BLOOD SPECIMEN Ordering Facility: [facility] Address: [address] [place] [address] Performed By: #### 5 7021-8 #### [facility] CLIA [id number] [address] [place] [address] [place] Monocytes (Bld) [#/Vol] 1.01 10*3/uL High <0.87 [facility] Comment on above: Order Comment: Speci men Type: BLOOD SPECIMEN Ordering Facility: [facility] Address: [address] [place] [address] Performed By: #### 5 7021-8 #### [facility] CLIA [id number] [address] [place], [place] [address] [place] Monocytes/100 WBC (Bld) 6.4 % Normal [facility] Comment on above: Order Comment: Speci men Type: BLOOD SPECIMEN Ordering Facility: [facility] Address: [address] [place] [address] Performed By: #### 5 7021-8 #### [facility] CLIA [id number] [address] [place] [address] [place] Neutrophils (Bld) [#/Vol] 12.40 10*3/uL High 1.45-7.50 [facility] Comment on above: Order Comment: Speci men Type: BLOOD SPECIMEN Ordering Facility: [facility] Address: [address] [place] [address] Performed By: #### 5 7021-8 #### [facility] CLIA [id number] [address] [place] [address] [place] Neutrophils/100 WBC (Bld) 78.3 % Normal [facility] Comment on above: Order Comment: Speci men Type: BLOOD SPECIMEN Ordering Facility: [facility] Address: [address] [place] [address] Performed By: #### 5 7021-8 #### [facility] CLIA [id number] [address] [place] [address] [place] Nucleated RBC (Bld) [#/Vol] 10*3/uL Normal <0.01 [facility] Comment on above: Order Comment: Speci men Type: BLOOD SPECIMEN Ordering Facility: [facility] Address: [address] [place] [address] Performed By: #### 5 7021-8 #### [facility] CLIA [id number] [address] [place] [address] [place] Nucleated RBC/100 WBC (Bld) [Ratio] 0.0 /100 WBC Normal [facility] Comment on above: Order Comment: Speci men Type: BLOOD SPECIMEN Ordering Facility: [facility] Address: [address] [place] [address] Performed By: #### 5 7021-8 #### [facility] CLIA [id number] [address] [place] [address] [place] Platelet mean volume (Bld) [Entitic vol] 10.3 fL Normal 9.0-12.7 [facility] Comment on above: Order Comment: Speci men Type: BLOOD SPECIMEN Ordering Facility: [facility] Address: [address] [place] [address] Performed By: #### 5 7021-8 #### [facility] CLIA [id number] [address] [id number] [place] Platelets (Bld) [#/Vol] 346 10*3/uL Normal 150-400 [facility] Comment on above: Order Comment: Speci men Type: BLOOD SPECIMEN Ordering Facility: [facility] Address: [address] [place] [address] Performed By: #### 5 7021-8 #### [facility] CLIA [id number] [address] [address] [place] RBC (Bld) [#/Vol] 3.53 10*6/uL Low 3.90-5.20 [facility] Comment on above: Order Comment: Speci men Type: BLOOD SPECIMEN Ordering Facility: [facility] Address: [address] [place] [address] Performed By: #### 5 7021-8 #### [facility] CLIA [id number] [facility] [id number] [place] WBC (Bld) [#/Vol] 15.83 10*3/uL High 3.70-11.00 [facility] Comment on above: Order Comment: Speci men Type: BLOOD SPECIMEN Ordering Facility: [facility] Address: [address] [place] [address] Performed By: #### 5 7021-8 #### [facility] CLIA [id number] [address] [place], [place] [address] [place] Comprehensive metabolic 2000 panelon 12-02-2024 Albumin [Mass/Vol] 3.6 g/dL Low 3.9-4.9 [facility] Comment on above: Order Comment: Speci men Type: BLOOD SPECIMEN Ordering Facility: [facility] Address: [address] [place] [address] Performed By: #### 2 4323-8 #### [facility] CLIA [id number] [address] [place], [place] [address] [place] ALP [Catalytic activity/Vol] 82 U/L Normal 34-123 [facility] Comment on above: Order Comment: Speci men Type: BLOOD SPECIMEN Ordering Facility: [facility] Address: [address] [place] [address] Performed By: #### 2 4323-8 #### [facility] CLIA [id number] [address] [place], [place] [id number] [place] ALT [Catalytic activity/Vol] 5 U/L Low 7-38 [facility] Comment on above: Order Comment: Speci men Type: BLOOD SPECIMEN Ordering Facility: [facility] Address: [address] [place] [address] Performed By: #### 2 4323-8 #### [facility] CLIA [id number] [address] [place] [address] [place] Anion gap [Moles/Vol] 12 mmol/L Normal 8-15 [place] Comment on above: Order Comment: Speci men Type: BLOOD SPECIMEN Ordering Facility: [facility] Address: [address] [place] [address] Performed By: #### 2 4323-8 #### [facility] CLIA [id number] [address] [place], [place] [address] [place] AST [Catalytic activity/Vol] 13 U/L Normal 13-35 [facility] Comment on above: Order Comment: Speci men Type: BLOOD SPECIMEN Ordering Facility: [facility] Address: [address] [place] [address] Performed By: #### 2 4323-8 #### [facility] CLIA [id number] [address] [place], [place] [address] [place] Bilirubin [Mass/Vol] 0.4 mg/dL Normal 0.2-1.3 [facility] Comment on above: Order Comment: Speci men Type: BLOOD SPECIMEN Ordering Facility: [facility] Address: [address] [place] [address] Performed By: #### 2 4323-8 #### [facility] CLIA [id number] [address] [address] [place] Calcium [Mass/Vol] 9.1 mg/dL Normal 8.5-10.2 [facility] Comment on above: Order Comment: Speci men Type: BLOOD SPECIMEN Ordering Facility: [facility] Address: [address] [place] [address], [place] [address] Performed By: #### 2 4323-8 #### [facility] CLIA [id number] [address] [id number] [place] Chloride [Moles/Vol] 103 mmol/L Normal 98-107 [facility] Comment on above: Order Comment: Speci men Type: BLOOD SPECIMEN Ordering Facility: [facility] Address: [address] [place] [address] Performed By: #### 2 4323-8 #### [facility] CLIA [id number] [address] [id number] [place] CO2 [Moles/Vol] 21 mmol/L Low 22-30 [facility] Comment on above: Order Comment: Speci men Type: BLOOD SPECIMEN Ordering Facility: [facility] Address: [address] [place] [address] Performed By: #### 2 4323-8 #### [facility] CLIA [id number] [facility] [place] [address] [place] Creatinine [Mass/Vol] 0.49 mg/dL Low 0.58-0.96 [place] Comment on above: Order Comment: Speci men Type: BLOOD SPECIMEN Ordering Facility: [facility] Address: [address] [place] [address] Performed By: #### 2 4323-8 #### [facility] CLIA [id number] [address] [place], [place] [address] [place] Creatinine and Glomerular filtration rate.predicted panel (S/P/Bld) 133 mL/min/1.73m??? Normal >=60 [facility] Comment on above: Order Comment: Speci men Type: BLOOD SPECIMEN Ordering Facility: [facility] Address: [address] [place] [address] Result Comment: Cece mated Glomerular Filtration Rate [...] GFR. Performed By: #### 2 4323-8 #### [facility] CLIA [id number] [address] [address] [place] Glucose [Mass/Vol] 93 mg/dL Normal 74-99 [facility] Comment on above: Order Comment: Speci men Type: BLOOD SPECIMEN Ordering Facility: [facility] Address: [address] [place] [address] Result Comment: The [place] Diabetes Association (ADA) provides guidance for cutoff [...] Standards of Medical Care in Diabetes 2016, [place] [employer] Association. Diabetes Care. 2016.39(Suppl 1). Performed By: #### 2 4323-8 #### [facility] CLIA [id number] [address] [address] [place] Potassium [Moles/Vol] 4.0 mmol/L Normal 3.7-5.1 [place] Comment on above: Order Comment: Alonai men Type: BLOOD SPECIMEN Ordering Facility: [facility] Address: [address] [place] [address] Performed By: #### 2 4323-8 #### [facility] CLIA [id number] [address] [address] [place] Protein [Mass/Vol] 6.1 g/dL Low 6.3-8.0 [facility] Comment on above: Order Comment: Speci men Type: BLOOD SPECIMEN Ordering Facility: [facility] Address: [address] [place] [address] Performed By: #### 2 4323-8 #### [facility] CLIA [id number] [address] [place] [address] [place] Sodium [Moles/Vol] 136 mmol/L Normal 136-144 [facility] Comment on above: Order Comment: Speci men Type: BLOOD SPECIMEN Ordering Facility: [facility] Address: [address] [place] [address] Performed By: #### 2 4323-8 #### [facility] CLIA [id number] [address] [place] [address] [place] Urea nitrogen [Mass/Vol] 6 mg/dL Low 7-21 [facility] Comment on above: Order Comment: Speci men Type: BLOOD SPECIMEN Ordering Facility: [facility] Address: [address] [place] [address] Performed By: #### 2 4323-8 #### [facility] CLIA [id number] [address] [place] [address] [place] Laboratory - Chemistry and C hemistry - challengeOrdered By: Andre Avila on 12-02-2024 Glucose Ql (U) Negative [facility] - UrinalysisOrder ed By: Andre Avila on 12-02-2024 Protein Ql (U) Negative [facility] Insurance Solicitor Office Visit Reporton 12-02-2024 Insurance Solicitor Office Visit Report [address] [id number] OFFICE VISIT Date of Service: 12/02/24 MR#: [id number] Acct: [id number] Name: NISSA CRAIN Rep #: [id number] : 1995 Provider: STEFANIE huang Age/Sex: 29/F Location: [facility] Status: Signed Intake Vital Signs 10/08/24 14:53 11/06/24 13:20 12/02/24 15:37 Height 5 ft 3 in 5 ft 3 in 5 ft 3 in Weight: 154 lb 8 oz BMI 27.3 BP 118/72 Intake Visit Reasons: 25wk ob Chief Complaint: 25 Week OB Surgical Lead Required: No Is patient in pain?: No [...] brother number of children: 1 current occupation: [employer] current occupational exposures/hazards: No pets and animals: [...] physical activity do you participate in: none antoni/latter-day: None seatbelt use: always do you feel [...] term 6lbs 9oz Male epidural Samariti an [facility] Delivery Date: 04/08/22 Last Updated by: Olive [...] 120/73 N (more content not included)... Normal [facility] Parvovirus B19 IgG AND IgMon 12-02-2024 PARVO B19 IGG 5.4 index Abnormal 0.0-0.8 [facility] Comment on above: Result Comment: Nega tive <0.9 Equivocal 0.9 - 1.1 Positive >1.1 Performed By: #### L 7000.2100 ####[facility] [id number] [place], [place], [id number] PARVO B19 IGM 0.2 index Normal 0.0-0.8 [facility] Comment on above: Result Comment: Nega tive <0.9 Equivocal 0.9 - 1.1 Positive >1.1 Performed at: [facility] [id number] Operational Communication Chief: Francisca Witt MD, Phone: [phone] Performed By: #### L 7000.2100 ####[facility] [id number] [place], [place], [id number] Parvovirus B19 IgMOrdered By : Gem Molina on 11-25-2024 Parvovirus B19 IgM IA Qn (S) 0.2 index 0.0-0.8 [facility] Comment on above: Negative <0.9 Equivo kamar 0.9 - 1.1 Positive >1.1Performed at: [facility] [id number] Director: Francisca Witt MD, Phone: [phone] Progress Noteon 11-17-2024 [employer] Authentication Interface Message Text [facility] Consult INDICATION FOR CONSULT: [...] for counseling. She met Pia Hernandez, Clinical Software Project Engineer from the [facility]. Pia will continue to help coordinate and care. [facility] Plan of Care Diagnosis: Horseshoe kidney. Cell free DNA aneuploidy screening is low risk. Declined invasive testing. Plan: 1. Continued obstetrical care with her primary patent solicitor is recommended. 2. Follow up ultrasound at 32 weeks gestation. These are planned with the [facility]. 3. consultation with Pediatric Urology will be [...] Cohen MD [1] No Known Allergies Normal [facility] - Chemistry and C hemistry - challengeOrdered By: Yao Brambila on 11-06-2024 Glucose Ql (U) Negative [facility] - UrinalysisOrder ed By: Yao Brambila on 11-06-2024 Protein Ql (U) Negative [facility] Insurance Solicitor Office Visit Reporton 11-06-2024 Insurance Solicitor Office Visit Report [facility] [address], [address] [place] [address] OFFICE VISIT Date of Service: 11/06/24 MR#: [id number] Acct: [id number] Name: NISSA CRAIN Rep #: [id number] : 1995 Provider: MARIKA Eugene ams Age/Sex: 29/F Location: [facility] Status: Signed Intake Vital Signs 09/11/24 10:02 10/08/24 14:53 11/06/24 13:19 11/06/24 13:20 Height 5 ft 3 in 5 ft 3 in 5 ft 3 in 5 ft 3 in Weight: 150 lb BMI 26.5 BP 120/73 Intake Visit Reasons: 21wk ob Surgical Lead Required: No Is patient in pain?: No [...] brother number of children: 1 current occupation: [employer] current occupational exposures/hazards: No pets and animals: [...] physical activity do you participate in: none antoni/latter-day: None seatbelt use: always do you feel [...] term 6lbs 9oz Male epidural Samariti an [facility] [place] Delivery Date: 04/08/22 Last Updated by: [...] 120/73 N (more content not included)... Normal [facility] - Chemistry and C hemistry - challengeOrdered By: Gem Molina on 10-08-2024 Glucose Ql (U) Negative [facility] - UrinalysisOrder ed By: Gem Molina on 10-08-2024 Protein Ql (U) Negative [facility] Insurance Solicitor Office Visit Reporton 10-08-2024 Insurance Solicitor Office Visit Report [facility]'s [address], [address] [place] [address] OFFICE VISIT Date of Service: 10/08/24 MR#: [id number] Acct: [id number] Name: NISSA CRAIN Rep #: [id number] : 1995 Provider: Dr. Gem Felipe DO Age/Sex: 29/F Location[place] [facility] [place] Status: Signed Intake Vital Signs 09/11/24 10:02 10/08/24 14:53 10/08/24 14:53 Height 5 ft 3 in 5 ft 3 in 5 ft 3 in Weight: 146 lb 6 oz BMI 25.9 BP 111/74 Intake Visit Reasons: 17wk ob Surgical Lead Required: No Is patient in pain?: No [...] brother number of children: 1 current occupation: [employer] current occupational exposures/hazards: No pets and animals: [...] physical activity do you participate in: none antoni/latter-day: None seatbelt use: always do you feel [...] term 6lbs 9oz Male epidural Samariti an [facility] Delivery Date: 04/08/22 Last Updated by: Olive [...] nausea. zofran refilled. anatomy scan scheduled 10/20 [facility] First Trimester First Trimester: Discussed Second Trimester Second Trimester: Signs and Symptoms o (more content not included)... Normal [facility] Creatinine Unsp time (U) [Ma ss/Vol]Ordered By: Yao Brambila on 09-11-2024 Creatinine (U) [Mass/Vol] 86.30 mg/dL 28-217 [facility] Miscellaneous procedureOrder ed By: Yao Brambila on 09-11-2024 Miscellaneous Test Comment SEE SCANNED REPORT [facility] NATERAon 09-11-2024 NATURA SEE SCANNED REPORT Normal [facility] Comment on above: Performed By: #### L 900.0098 #### [facility] [address] [place], [address] Insurance Solicitor Office Visit Reporton 09-11-2024 Insurance Solicitor Office Visit Report [facility] [address] [facility], [address] [place] [address] OFFICE VISIT Date of Service: 09/11/24 MR#: [id number] Acct: [id number] Name: NISSA CRAIN Rep #: [id number] : 1995 Provider: MARIKA Eugene ams Age/Sex: 29/F Location: [facility] [place] Status: Signed Intake Vital Signs 09/11/24 [...] brother number of children: 1 current occupation: [employer] current occupational exposures/hazards: No pets and animals: [...] physical activity do you participate in: none antoni/latter-day: None seatbelt use: always do you feel [...] term 6lbs 9oz Male epidural Samariti an [facility] Delivery Date: 04/08/22 Last Updated by: [...] no ad (more content not included)... Normal [facility] Protein+Creatinine Ratio,Uri neon 09-11-2024 PROT:CRE RATIO 123 mg/g CRE Normal 0-200 [facility] Comment on above: Performed By: #### L 501.0900 ####[facility] [address] [place], [address] Protein (U) [Mass/Vol] 10.6 mg/dL Normal 0.0-12.0 [facility] Comment on above: Performed By: #### L 501.0900 ####[facility] [address] [place], [address] UR CREAT 86.30 mg/dL Normal [facility] Comment on above: Performed By: #### L 501.0900 ####[facility] [address] [place], [address] Protein/Creatinine (U) [Mass ratio]Ordered By: Yao Brambila on 09-11-2024 Urine Protein/Creatinine Ratio 123 mg/g CRE 0-200 [facility] Random urine creatinine trudi urement (mass/volume)Ordered By: Yao Brambila on 09-11-2024 Creatinine Unsp time (U) [Mass/Vol] 86.30 mg/dL [facility] Urine protein measurement (m ass/volume)Ordered By: Yao Brambila on 09-11-2024 Protein (U) [Mass/Vol] 10.6 mg/dL 0.0-12.0 [facility] Urine protein/creatinine mas s ratioOrdered By: Yao Brambila on 09-11-2024 Protein/Creatinine (U) [Mass ratio] 123 mg/g CRE 0-200 [facility] Absolute lymphocyte countOrd ered By: Thelma Taveras on 08-27-2024 Lymphocytes Auto (Unsp spec) [#/Vol] 1.96 10*3/uL 0.83-4.51 [facility] Absolute neutrophil countOrd ered By: Thelma Taveras on 08-27-2024 Neutrophils (Bld) [#/Vol] 8.1 10*3/uL High 2.0-7.7 [facility] Albumin to globulin ratioOrd ered By: Thelma Taveras on 08-27-2024 Albumin/Globulin [Mass ratio] 1.1 {ratio} 0.9-2.4 [facility] Automated lymphocyte count a s percentage of total leukocytesOrdered By: Thelma Taveras on 08-27-2024 Lymphocytes/100 WBC Auto (Unsp spec) 17.9 % Low 19-41 [facility] Basophil percentageOrdered B y: Thelma Taveras on 08-27-2024 Basophils/100 WBC (Bld) 0.5 % 0-1 [facility] Bilirubin, totalOrdered By: Thelma Taveras on 08-27-2024 Bilirubin [Mass/Vol] 0.60 mg/dL 0.20-1.00 [facility] Comment on above: For patients on eltr ombopag therapy, use of Dimension Julian TBIL is not recommended. Blood urea nitrogen (BUN)/cr eatinine ratioOrdered By: Thelma Taveras on 08-27-2024 Urea nitrogen/Creatinine [Mass ratio] 13.3 mg/mg 04-26 [facility] CBC W/Diff, Automatedon 08-09 Absolute Lymph 1.96 X10 3/uL Normal 0.83-4.51 [facility] Comment on above: Performed By: #### L 100.0100, L501.0900, L3890.6005, L3890.6100, L509.8000, L500.4050, BTS, L3890.6300, L509.4005 ####[facility] [address] [place], [address] Absolute Neut 8.1 X10 3/uL High 2.0-7.7 [facility] Comment on above: Performed By: #### L 100.0100, L501.0900, L3890.6005, L3890.6100, L509.8000, L500.4050, BTS, L3890.6300, L509.4005 ####[facility] [address] [place], [address] Basophils/100 WBC (Bld) 0.5 % Normal 0-1 [facility] Comment on above: Performed By: #### L 100.0100, L501.0900, L3890.6005, L3890.6100, L509.8000, L500.4050, BTS, L3890.6300, L509.4005 ####[facility] [address] [place], [address] Eosinophils/100 WBC (Bld) 1.7 % Normal 0-5 [facility] Comment on above: Performed By: #### L 100.0100, L501.0900, L3890.6005, L3890.6100, L509.8000, L500.4050, BTS, L3890.6300, L509.4005 ####[facility] [address] [place], [place], [phone] Erythrocyte distribution width (RBC) [Ratio] 13.3 % Normal 11.6-14.6 [facility] Comment on above: Performed By: #### L 100.0100, L501.0900, L3890.6005, L3890.6100, L509.8000, L500.4050, BTS, L3890.6300, L509.4005 ####[facility] [address] [place], [address](913) Hematocrit (Bld) [Volume fraction] 37.0 % Normal 37-47 [facility] Comment on above: Performed By: #### L 100.0100, L501.0900, L3890.6005, L3890.6100, L509.8000, L500.4050, BTS, L3890.6300, L509.4005 ####[facility] [address] [place], [place], [phone] Hemoglobin (Bld) [Mass/Vol] 12.1 g/dL Normal 12.0-15.0 [facility] Comment on above: Performed By: #### L 100.0100, L501.0900, L3890.6005, L3890.6100, L509.8000, L500.4050, BTS, L3890.6300, L509.4005 ####[facility] [address] [place], [address] IG% 0.500 Normal 0.0-0.9 [facility] Comment on above: Result Comment: IG% - Immature Granulocytes (promyelocytes, myelocytes and metamyelocytes) > 1% indicates that a LEFT SHIFT is Present. Performed By: #### L 100.0100, L501.0900, L3890.6005, L3890.6100, L509.8000, L500.4050, BTS, L3890.6300, L509.4005 ####[facility] [address] [place], [address] Lymphocytes/100 WBC (Bld) 17.9 % Low 19-41 [facility] Comment on above: Performed By: #### L 100.0100, L501.0900, L3890.6005, L3890.6100, L509.8000, L500.4050, BTS, L3890.6300, L509.4005 ####[facility] [address] [place], [address] MCH (RBC) [Entitic mass] 29.4 pg Normal 27.0-32.0 [facility] Comment on above: Performed By: #### L 100.0100, L501.0900, L3890.6005, L3890.6100, L509.8000, L500.4050, BTS, L3890.6300, L509.4005 ####[facility] [address] [place], [address] MCHC (RBC) [Mass/Vol] 32.7 g/dL Normal 32-36 [facility] Comment on above: Performed By: #### L 100.0100, L501.0900, L3890.6005, L3890.6100, L509.8000, L500.4050, BTS, L3890.6300, L509.4005 ####[facility] [address] [place], [address] MCV (RBC) [Entitic vol] 89.8 fL Normal 81-99 [facility] Comment on above: Performed By: #### L 100.0100, L501.0900, L3890.6005, L3890.6100, L509.8000, L500.4050, BTS, L3890.6300, L509.4005 ####[facility] [address] [place], [address] Monocytes/100 WBC (Bld) 5.9 % Normal 0-10 [facility] Comment on above: Performed By: #### L 100.0100, L501.0900, L3890.6005, L3890.6100, L509.8000, L500.4050, BTS, L3890.6300, L509.4005 ####[facility] [address] [place], [address] Neutrophils/100 WBC (Bld) 73.5 % High 47-70 [facility] Comment on above: Performed By: #### L 100.0100, L501.0900, L3890.6005, L3890.6100, L509.8000, L500.4050, BTS, L3890.6300, L509.4005 ####[facility] [address] [place], [address] Nucleated RBC (Bld) [#/Vol] 0 10*3/uL Normal 0-5 [facility] Comment on above: Performed By: #### L 100.0100, L501.0900, L3890.6005, L3890.6100, L509.8000, L500.4050, BTS, L3890.6300, L509.4005 ####[facility] [address] [place], [address] Platelet mean volume (Bld) [Entitic vol] 9.6 fL Normal 6.2-12.0 [facility] Comment on above: Performed By: #### L 100.0100, L501.0900, L3890.6005, L3890.6100, L509.8000, L500.4050, BTS, L3890.6300, L509.4005 ####[facility] [address] [place], [address] Platelets (Bld) [#/Vol] 339 10*3/uL Normal 150-450 [facility] Comment on above: Performed By: #### L 100.0100, L501.0900, L3890.6005, L3890.6100, L509.8000, L500.4050, BTS, L3890.6300, L509.4005 ####[facility] [address] [place], [address] RBC (Bld) [#/Vol] 4.12 10*6/uL Low 4.2-5.4 [facility] Comment on above: Performed By: #### L 100.0100, L501.0900, L3890.6005, L3890.6100, L509.8000, L500.4050, BTS, L3890.6300, L509.4005 ####[facility] [address] [place], [address] RDW SD 43.9 fl Normal 35.1-43.9 [facility] Comment on above: Performed By: #### L 100.0100, L501.0900, L3890.6005, L3890.6100, L509.8000, L500.4050, BTS, L3890.6300, L509.4005 ####[facility] [address] [place], [address] WBC (Bld) [#/Vol] 11.0 10*3/uL Normal 4.4-11.0 [facility] Comment on above: Performed By: #### L 100.0100, L501.0900, L3890.6005, L3890.6100, L509.8000, L500.4050, BTS, L3890.6300, L509.4005 ####[facility] [address] [place], [place], [address] Carbon dioxide measurementOr dered By: Thelma Taveras on 08-27-2024 CO2 [Moles/Vol] 26.0 mmol/L 21.0-32.0 [facility] Chloride measurementOrdered By: Thelma Taveras on 08-27-2024 Chloride [Moles/Vol] 104 mmol/L 98-107 [facility] Comprehensive Metabolic Prof ilon 08-27-2024 Albumin [Mass/Vol] 3.6 g/dL Normal 3.2-5.0 [facility] Comment on above: Performed By: #### L 100.0100, L501.0900, L3890.6005, L3890.6100, L509.8000, L500.4050, BTS, L3890.6300, L509.4005 ####[facility] [address] [place], [place], [id number] Albumin/Globulin [Mass ratio] 1.1 {ratio} Normal 0.9-2.4 [facility] Comment on above: Performed By: #### L 100.0100, L501.0900, L3890.6005, L3890.6100, L509.8000, L500.4050, BTS, L3890.6300, L509.4005 ####[facility] [address] [place], [address] ALK P 62 U/L Normal 45-117 [facility] Comment on above: Performed By: #### L 100.0100, L501.0900, L3890.6005, L3890.6100, L509.8000, L500.4050, BTS, L3890.6300, L509.4005 ####[facility] [address] [place], [address] ALT [Catalytic activity/Vol] 14 U/L Normal 13-56 [facility] Comment on above: Performed By: #### L 100.0100, L501.0900, L3890.6005, L3890.6100, L509.8000, L500.4050, BTS, L3890.6300, L509.4005 ####[facility] [address] [place], [address] AST [Catalytic activity/Vol] 12 U/L Low 15-37 [facility] Comment on above: Performed By: #### L 100.0100, L501.0900, L3890.6005, L3890.6100, L509.8000, L500.4050, BTS, L3890.6300, L509.4005 ####[facility] [address] [place], [address] Bilirubin [Mass/Vol] 0.60 mg/dL Normal 0.20-1.00 [facility] Comment on above: Result Comment: For patients on eltrombopag therapy, use of Dimension Julian TBIL is not recommended. Performed By: #### L 100.0100, L501.0900, L3890.6005, L3890.6100, L509.8000, L500.4050, BTS, L3890.6300, L509.4005 ####[facility] [address] [place], [address] BUN/CRE 13.3 RATIO Normal 10-20 [facility] Comment on above: Performed By: #### L 100.0100, L501.0900, L3890.6005, L3890.6100, L509.8000, L500.4050, BTS, L3890.6300, L509.4005 ####[facility] [address] [place], [address] CA,Total 9.0 mg/dL Normal 8.5-10.1 [facility] Comment on above: Performed By: #### L 100.0100, L501.0900, L3890.6005, L3890.6100, L509.8000, L500.4050, BTS, L3890.6300, L509.4005 ####[facility] [address] [place], [address] Chloride [Moles/Vol] 104 mmol/L Normal 98-107 [facility] Comment on above: Performed By: #### L 100.0100, L501.0900, L3890.6005, L3890.6100, L509.8000, L500.4050, BTS, L3890.6300, L509.4005 ####[facility] [address] [place], [address] CO2 [Moles/Vol] 26.0 mmol/L Normal 21.0-32.0 [facility] Comment on above: Performed By: #### L 100.0100, L501.0900, L3890.6005, L3890.6100, L509.8000, L500.4050, BTS, L3890.6300, L509.4005 ####[facility] [address] [place], [address] Creatinine [Mass/Vol] 0.53 mg/dL Low 0.55-1.02 [facility] Comment on above: Result Comment: The validity of the calculated GFR GFRAA in patients over 70 years has not been determined. Clinical correlation is essential. Performed By: #### L 100.0100, L501.0900, L3890.6005, L3890.6100, L509.8000, L500.4050, BTS, L3890.6300, L509.4005 ####[facility] [address] [place], [address] EST GFR - AA 178 mL/min Normal >60 [facility] Comment on above: Result Comment: Afri can Egyptian GFR Calc Performed By: #### L 100.0100, L501.0900, L3890.6005, L3890.6100, L509.8000, L500.4050, BTS, L3890.6300, L509.4005 ####[facility] [address] [place], [address] GAP 7 Normal 5-15 [facility] Comment on above: Performed By: #### L 100.0100, L501.0900, L3890.6005, L3890.6100, L509.8000, L500.4050, BTS, L3890.6300, L509.4005 ####[facility] [address] [place], [address] GFR/1.73 sq M.predicted among non-blacks MDRD (S/P/Bld) [Vol rate/Area] 147 mL/min/{1.73_m2} Normal >60 [facility] Comment on above: Result Comment: Non- GFR Calc Performed By: #### L 100.0100, L501.0900, L3890.6005, L3890.6100, L509.8000, L500.4050, BTS, L3890.6300, L509.4005 ####[facility] [address] [place], [address] Globulin (S) [Mass/Vol] 3.4 g/dL Normal 2.2-4.2 [facility] Comment on above: Performed By: #### L 100.0100, L501.0900, L3890.6005, L3890.6100, L509.8000, L500.4050, BTS, L3890.6300, L509.4005 ####[facility] [address] [place], [address] Glucose [Mass/Vol] 93 mg/dL Normal 74-106 [facility] Comment on above: Performed By: #### L 100.0100, L501.0900, L3890.6005, L3890.6100, L509.8000, L500.4050, BTS, L3890.6300, L509.4005 ####[facility] [address] [place], [address] Potassium [Moles/Vol] 3.6 mmol/L Normal 3.5-5.1 [facility] Comment on above: Performed By: #### L 100.0100, L501.0900, L3890.6005, L3890.6100, L509.8000, L500.4050, BTS, L3890.6300, L509.4005 ####[facility] [address] [place], [address] Sodium [Moles/Vol] 137 mmol/L Normal 136-145 [facility] Comment on above: Performed By: #### L 100.0100, L501.0900, L3890.6005, L3890.6100, L509.8000, L500.4050, BTS, L3890.6300, L509.4005 ####[facility] [address] [place], [address] T PROT 7.0 g/dL Normal 6.4-8.2 [facility] Comment on above: Performed By: #### L 100.0100, L501.0900, L3890.6005, L3890.6100, L509.8000, L500.4050, BTS, L3890.6300, L509.4005 ####[facility] [address] [place], [address] Urea nitrogen [Mass/Vol] 7 mg/dL Normal 7-18 [facility] Comment on above: Performed By: #### L 100.0100, L501.0900, L3890.6005, L3890.6100, L509.8000, L500.4050, BTS, L3890.6300, L509.4005 ####[facility] [address] [place], [address] Eosinophil percentageOrdered By: Thelma Taveras on 08-27-2024 Eosinophils/100 WBC (Bld) 1.7 % 0-5 [facility] Erythrocyte distribution wid th ratioOrdered By: Thelma Taveras on 08-27-2024 Erythrocyte distribution width (RBC) [Ratio] 13.3 % 11.6-14.6 [facility] Erythrocyte distribution wid th standard deviationOrdered By: Thelma Taveras on 08-27-2024 Erythrocyte distribution width (RBC) [Entitic vol] 43.9 fL 35.1-43.9 [facility] Erythrocyte distribution width (RBC) [Ratio] 43.9 fl 35.1-43.9 [facility] Estimated glomerular filtrat ion rate (GFR) AmericanOrdered By: Thelma Taveras on 08-27-2024 Estimated GFR (MDRD) Amer 178 mL/min >60 [facility] Comment on above: GFR Calc Glomerular filtration rate ( GFR) estimationOrdered By: Thelma Taveras on 08-27-2024 Estimated GFR (MDRD) Non-Af Amer 147 mL/min >60 [facility] Comment on above: Non- GFR Calc GFR/1.73 sq M.predicted among non-blacks MDRD (S/P/Bld) [Vol rate/Area] 147 mL/min/{1.73_m2} >60 [facility] Comment on above: Non- GFR Calc Glucose measurementOrdered B y: Thelma Taveras on 08-27-2024 Glucose [Mass/Vol] 93 mg/dL 74-106 [facility] HIV - WCHon 08-27-2024 HIV Non-Reactive Normal Nonreactive [facility] Comment on above: Order Comment: Reaso n for Exam: Performed By: #### L 100.0100, L501.0900, L3890.6005, L3890.6100, L509.8000, L500.4050, BTS, L3890.6300, L509.4005 ####[facility] [address] [place], [place], [id number] HIV 1 and HIV-2 antibody ass ay with HIV-1 p24 antigen detectionOrdered By: Thelma Taveras on 08-27-2024 HIV 1+2 Ab+HIV1 p24 Ag IA Ql Non-Reactive Nonreactive [facility] HIV 1+2 Ab+HIV1 p24 Ag IA Ql Ordered By: Thelma Contrerasirma on 08-27-2024 HIV (1&2) Antibody Non-Reactive Nonreactive [facility] Hematocrit Auto (Bld) [Volum e fraction]Ordered By: Thelma Robbinswenceslao on 08-27-2024 Hematocrit (Bld) [Volume fraction] 37.0 % 37-47 [facility] Hemoglobin measurementOrdere d By: Thelma Robbinswenceslao on 08-27-2024 Hemoglobin (Bld) [Mass/Vol] 12.1 g/dL 12.0-15.0 [facility] Hepatitis B Surface Antigeno n 08-27-2024 HEP B Surf Ag Non-Reactive [facility] Comment on above: Order Comment: Reaso n for Exam: Performed By: #### L 100.0100, L501.0900, L3890.6005, L3890.6100, L509.8000, L500.4050, BTS, L3890.6300, L509.4005 ####[facility] [address] [facility] [place], [address] Hepatitis B surface antigen detectionOrdered By: Thelma Robbinswenceslao on 08-27-2024 Hepatitis B Surface Antigen Non-Reactive Nonreactive [facility] Hepatitis C Antibodyon 08-27 Hepatitis C AB Non-Reactive Normal [facility] Comment on above: Order Comment: Reaso n for Exam: Result Comment: Non Reactive: < 0.8 Equivocal: >/= 0.8 to < 1.0 Reactive: >/= 1.0 The CDC requires that a reactive/equivocal HCV antibody result be sent out for confirmation. HCV Quant by PCR testing. Performed By: #### L 100.0100, L501.0900, L3890.6005, L3890.6100, L509.8000, L500.4050, BTS, L3890.6300, L509.4005 ####[facility] [address] [place], [address] Hepatitis C virus antibody a ssayOrdered By: Thelma Taveras on 08-27-2024 Hepatitis C Antibody Non-Reactive Nonreactive [facility] Comment on above: Non Reactive: < 0.8 Equivocal: >/= 0.8 to < 1.0 Reactive: >/= 1.0The CDC requires that a reactive/equivocal HCV antibody result be sent out for confirmation. HCV Quant by PCR testing. Immature granulocytes/100 WB C Auto (Bld)Ordered By: Thelma Taveras on 08-27-2024 Immature granulocytes/100 WBC (Bld) 0.500 % 0.0-0.9 [facility] Comment on above: IG% - Immature Granu locytes (promyelocytes, myelocytes and metamyelocytes) > 1% indicates that a LEFT SHIFT is Present. L509.8000on 08-27-2024 Syphilis Abs Non-Reactive Normal [facility] Comment on above: Order Comment: Reaso n for Exam: Performed By: #### L 100.0100, L501.0900, L3890.6005, L3890.6100, L509.8000, L500.4050, BTS, L3890.6300, L509.4005 ####[facility] [address] [place], [address] Laboratory - Chemistry and C hemistry - challengeOrdered By: Thelma Taveras on 08-27-2024 AST [Catalytic activity/Vol] 12 U/L Low 15-37 [facility] Lymphocytes Auto (Unsp spec) [#/Vol]Ordered By: Thelma Taveras on 08-27-2024 Lymphocytes (Bld) [#/Vol] 1.96 10*3/uL 0.83-4.51 [facility] Lymphocytes/100 WBC Auto (Un sp spec)Ordered By: Thelma Taveras on 08-27-2024 Lymphocytes/100 WBC (Bld) 17.9 % Low 19-41 [facility] MCV (mean corpuscular volume ) determinationOrdered By: Thelma Taveras on 08-27-2024 MCV (RBC) [Entitic vol] 89.8 fL 81-99 [facility] Mean corpuscular hemoglobin (MCH) determinationOrdered By: Thelma Taveras on 08-27-2024 MCH (RBC) [Entitic mass] 29.4 pg 27.0-32.0 [facility] Mean corpuscular hemoglobin concentration (MCHC) determinationOrdered By: Thelma Taveras on 08-27-2024 MCHC (RBC) [Mass/Vol] 32.7 g/dL 32-36 [facility] Mean platelet volume determi nationOrdered By: Thelma Taveras on 08-27-2024 Platelet mean volume (Bld) [Entitic vol] 9.6 fL 6.2-12.0 [facility] Monocyte percentageOrdered B y: Thelma Taveras on 08-27-2024 Monocytes/100 WBC (Bld) 5.9 % 0-10 [facility] Neutrophil percentageOrdered By: Thelma Taveras on 08-27-2024 Neutrophils/100 WBC (Bld) 73.5 % High 47-70 [facility] Nucleated red blood cell per centageOrdered By: Thelma Taveras on 08-27-2024 Nucleated RBC/100 WBC (Bld) [Ratio] 0 % 0-5 [facility] Platelet countOrdered By: Juan F Taveras on 08-27-2024 Platelets (Bld) [#/Vol] 339 10*3/uL 150-450 [facility] Potassium measurementOrdered By: Thelma Taveras on 08-27-2024 Potassium [Moles/Vol] 3.6 mmol/L 3.5-5.1 [facility] Protein+Creatinine Ratio,Uri neon 08-27-2024 PROT:CRE RATIO 141 mg/g CRE Normal 0-200 [facility] Comment on above: Performed By: #### L 100.0100, L501.0900, L3890.6005, L3890.6100, L509.8000, L500.4050, BTS, L3890.6300, L509.4005 ####[facility] [id number] [place], [address] Protein (U) [Mass/Vol] 14.5 mg/dL High <11.9 [facility] Comment on above: Performed By: #### L 100.0100, L501.0900, L3890.6005, L3890.6100, L509.8000, L500.4050, BTS, L3890.6300, L509.4005 ####[facility] [id number] [place], [address] UR CREAT 103.00 mg/dL Normal NO RANGE EST. [facility] Comment on above: Performed By: #### L 100.0100, L501.0900, L3890.6005, L3890.6100, L509.8000, L500.4050, BTS, L3890.6300, L509.4005 ####[facility] [address] [place], [address] Protein/Creatinine (U) [Mass ratio]Ordered By: Thelma Taveras on 08-27-2024 Urine Protein/Creatinine Ratio 141 mg/g CRE 0-200 [facility] RBC Auto (Bld) [#/Vol]Ordere d By: Thelma Taveras on 08-27-2024 RBC (Bld) [#/Vol] 4.12 10*6/uL Low 4.2-5.4 [facility] Random urine protein measure mentOrdered By: Thelma Taveras on 08-27-2024 Protein (U) [Mass/Vol] 14.5 mg/dL High 0.0-11.8 [facility] Rubella IgGon 08-27-2024 Rubella IgG Reactive Normal Nonreactive [facility] Comment on above: Order Comment: Reaso n for Exam: Result Comment: Anti body Results Interpretation of Immune Status Non Reactive Presumed Non-Immune Equivocal Equivocal Reactive Presumed Immune Performed By: #### L 100.0100, L501.0900, L3890.6005, L3890.6100, L509.8000, L500.4050, BTS, L3890.6300, L509.4005 ####[facility] [address] [place], [address] Rubella immune status IgGOrd ered By: Thelma Taveras on 08-27-2024 Rubella IgG Antibody Reactive Nonreactive [facility] Comment on above: Antibody Results Int erpretation of Immune Status Non Reactive Presumed Non-Immune Equivocal Equivocal Reactive Presumed Immune Serum Treponema species anti body detectionOrdered By: Thelma Taveras on 08-27-2024 Treponema sp Ab Ql (S) Non-Reactive [facility] Serum anion gap measurementO rdered By: Thelma Taveras on 08-27-2024 Anion gap [Moles/Vol] 7 mmol/L 5-15 [facility] Serum globulin measurementOr dered By: Thelma Taveras on 08-27-2024 Globulin (S) [Mass/Vol] 3.4 g/dL 2.2-4.2 [facility] Serum or plasma alanine arzola otransferase (ALT) measurementOrdered By: Thelma Taveras on 08-27-2024 ALT [Catalytic activity/Vol] 14 U/L 13-56 [facility] Serum or plasma albumin trudi urement (mass/volume)Ordered By: Thelma Taveras on 08-27-2024 Albumin [Mass/Vol] 3.6 g/dL 3.2-5.0 [facility] Serum or plasma alkaline georgette sphatase measurementOrdered By: Thelma Taveras on 08-27-2024 ALP [Catalytic activity/Vol] 62 U/L 45-117 [facility] Serum or plasma calcium trudi urement (mass/volume)Ordered By: Thelma Taveras on 08-27-2024 Calcium [Mass/Vol] 9.0 mg/dL 8.5-10.1 [facility] Serum or plasma creatinine m easurement (mass/volume)Ordered By: Thelma Taveras on 08-27-2024 Creatinine [Mass/Vol] 0.53 mg/dL Low 0.55-1.02 [facility] Comment on above: The validity of the calculated GFR & GFRAA in patients over 70 years has not been determined. Clinical correlation is essential. Serum or plasma urea nitroge n measurement (mass/volume)Ordered By: Thelma Taveras on 08-27-2024 Urea nitrogen [Mass/Vol] 7 mg/dL 7-18 [facility] Sodium levelOrdered By: Arron acosta Darcy on 08-27-2024 Sodium [Moles/Vol] 137 mmol/L 136-145 [facility] Total proteinOrdered By: Lauri costa Darcy on 08-27-2024 Protein [Mass/Vol] 7.0 g/dL 6.4-8.2 [facility] Treponema sp Ab Ql (S)Ordere d By: Thelma Darcy on 08-27-2024 Syphilis Total Antibody Non-Reactive [facility] Type AND Screenon 08-27-2024 Ab SCREEN GEL Negative Normal [facility] Comment on above: Order Comment: PN Performed By: #### L 100.0100, L501.0900, L3890.6005, L3890.6100, L509.8000, L500.4050, BTS, L3890.6300, L509.4005 ####[facility] [address] [place], [place], [address] Urine creatinine measurement (mass/volume)Ordered By: Thelma Darcy on 08-27-2024 Creatinine (U) [Mass/Vol] 103.00 mg/dL NO RANGE EST. [facility] Urine protein/creatinine mas s ratioOrdered By: Thelma Taveras on 08-27-2024 Protein/Creatinine (U) [Mass ratio] 141 mg/g CRE 0-200 [facility] White blood cell (WBC) count Ordered By: Thelma Taveras on 08-27-2024 WBC (Bld) [#/Vol] 11.0 10*3/uL 4.4-11.0 [facility] PAP I-G w/rfx hrHPV-Aptimaon 08-20-2024 ADEQ Comment Normal . [facility] Comment on above: Order Comment: Speci men Comment: [id number] Specimen Comment: Source.............Cervix Specimen Comment: LMP / Prev Treat...[id number] Specimen Comment: Other.............. Specimen Comment: No. of containers..01 ThinPrep Vial Result Comment: Sati sfactory for evaluation. Endocervical and/or squamous metaplastic cells (endocervical component) are present. Performed By: #### L 7400.0353, L7000.1800, M100.2200 #### [facility] [address] [place], [place], [address] COMM . Normal . [facility] Comment on above: Order Comment: Speci men Comment: [id number] Specimen Comment: Source.............Cervix Specimen Comment: LMP / Prev Treat...[id number] Specimen Comment: Other.............. Specimen Comment: No. of containers..01 ThinPrep Vial Performed By: #### L 7400.0353, L7000.1800, M100.2200 #### [facility] [address] [place], [place], [id number] COMMENT Comment Normal . [facility] Comment on above: Order Comment: Speci men Comment: [id number] Specimen Comment: Source.............Cervix Specimen Comment: LMP / Prev Treat...[id number] Specimen Comment: Other.............. Specimen Comment: No. of containers..01 ThinPrep Vial Result Comment: This liquid based ThinPrep(R) pap test was screened with the use of an image guided system. Performed By: #### L 7400.0353, L7000.1800, M100.2200 #### [facility] [address] [place], [place], [id number] DIAG Comment Normal . [facility] Comment on above: Order Comment: Speci men Comment: [id number] Specimen Comment: Source.............Cervix Specimen Comment: LMP / Prev Treat...[id number] Specimen Comment: Other.............. Specimen Comment: No. of containers..01 ThinPrep Vial Result Comment: NEGA TIVE FOR INTRAEPITHELIAL LESION OR MALIGNANCY. Performed By: #### L 7400.0353, L7000.1800, M100.2200 #### [facility] [address] [place], [address] HPV RFLX Comment Normal . [facility] Comment on above: Order Comment: Speci men Comment: [id number] Specimen Comment: Source.............Cervix Specimen Comment: LMP / Prev Treat...[id number] Specimen Comment: Other.............. Specimen Comment: No. of containers..01 ThinPrep Vial Result Comment: The HPV DNA reflex criteria were not met with this specimen result therefore, no HPV testing was performed. Performed at: - [facility] [address] [id number] Operational Communication Chief: Dusty Luong MD, Phone: [phone] Performed at: - [address] [id number] Operational Communication Chief: Bess Blood MD, Phone: [phone] Performed By: #### L 7400.0353, L7000.1800, M100.2200 #### [facility] [address] [place], [place], [address] PAPSMR Comment Normal . [facility] Comment on above: Order Comment: Speci men Comment: [id number] Specimen Comment: Source.............Cervix Specimen Comment: LMP / Prev Treat...[id number] Specimen Comment: Other.............. Specimen Comment: No. of [...] By: #### L 7400.0353, L7000.1800, M100.2200 #### [facility] [address] [place], [address] PERFORM Comment Normal . [facility] Comment on above: Order Comment: Speci men Comment: [id number] Specimen Comment: Source.............Cervix Specimen Comment: LMP / Prev Treat...[id number] Specimen Comment: Other.............. Specimen Comment: No. of containers..01 ThinPrep Vial Result Comment: Grupo Tai, Intern Product Marketing Manager (ASCP) Performed By: #### L 7400.0353, L7000.1800, M100.2200 #### [facility] [address] [place], [address] Chlamydia/GC SHEN aptimaon CHLAMY,NUC ACID Negative Normal Negative [facility] Comment on above: Performed By: #### L 7400.0353, L7000.1800, M100.2200 #### [facility] [address] [place], [address] GC BY NUC ACID Negative Normal Negative [facility] Comment on above: Result Comment: Perf ormed at: =G - [facility] [address] [id number] Operational Communication Chief: Bess Blood MD, Phone: [phone] Performed By: #### L 7400.0353, L7000.1800, M100.2200 #### [facility] [address] [place], [address] Urine Cultureon 08-16-2024 URC Below infection leve l. Mixed Gram Positive Organisms Dorado Count <1000 MIXC Mixed contaminants. Submit a new specimen if indicated. Normal [facility] Comment on above: Performed By: #### L 7400.0353, L7000.1800, M100.2200 #### [facility] [place], [address] C. trachomatis rRNA SHEN+prob e Ql (Unsp spec)Ordered By: Thelma Taveras on 08-14-2024 Chlamydia DNA (SHEN) Negative Negative [facility] Cervical or vagninal specime n microscopic examination by cytology stain (reported asOrdered By: Thelma Taveras on 08-14-2024 Cytology report Cyto stain Doc (Cvx/Vag) Comment . [facility] Comment on above: The Pap smear is [...] rRNA SHEN+probe Ql (Unsp spec) Negative Negative [facility] Sports Bookmaker Cyto stain Nom (C vx/Vag) [ID]Ordered By: Thelma Taveras on 08-14-2024 Pap Smear Performed By Comment . [facility] Comment on above: Princess Tai, Cytotec hnologist (ASCP) Cytology report Cyto stain D oc (Cvx/Vag)Ordered By: Thelma Taveras on 08-14-2024 Thin Prep Pap Smear Comment . [facility] Comment on above: The Pap smear is a s creening test designed to aid in thedetection of premalignant and malignant conditions of theuterine cervix. It is not a diagnostic procedure andshould not be used as the sole means of detecting cervicalcancer. Both false-positive and false-negative reports dooccur. Image-guided ThinPrep PapOrd ered By: Thelma Taveras on 08-14-2024 Pap Smear Note Comment . [facility] Comment on above: This liquid based Th inPrep(R) pap test was screened withthe use of an image guided system. Image-guided liquid-based Pa pOrdered By: Thelma Taveras on 02-07-2025 Pap Smear Diagnosis Comment . [facility] Comment on above: NEGATIVE FOR INTRAEP ITHELIAL LESION OR MALIGNANCY. Image-guided liquid-based ce rvical Pap w high-risk HPV+reflex to HPV 16+18Ordered By: Thelma Taveras on 08-14-2024 Human Papillomavirus Screen Comment . [facility] Comment on above: The HPV DNA reflex c riteria were not met with this specimenresult therefore, no HPV testing was performed.Performed at: - [facility] [address] [id number] Director: Dusty Luong MD, Phone: [phone] at: [address] [id number] Director: Bess Blood MD, Phone: [phone] Laboratory - CytologyOrdered By: Thelma Taveras on 08-14-2024 Sports Bookmaker Cyto stain Nom (Cvx/Vag) [ID] Comment . [facility] Comment on above: Princess Tai, Cytotec hnologist (ASCP) Laboratory - Miscellaneous t estsOrdered By: Thelma Taveras on 08-14-2024 Service comment (Unsp spec) [Interp] . . [facility] Neisseria gonorrhoeae nuclei c acid detection by amplified probe techniqueOrdered By: Thelma Taveras on 08-14-2024 N. gonorrhoeae DNA SHEN+probe Ql (Unsp spec) Negative Negative [facility] Comment on above: Performed at: =G - L [address] [id number] Director: Bess Blood MD, Phone: [phone] No Panel InformationOrdered By: Thelma Taveras on 08-14-2024 Pap Smear Specimen Adequacy Comment . [facility] Comment on above: Satisfactory for bernardo luation. Endocervical and/or squamous metaplasticcells (endocervical component) are present. Insurance Solicitor Office Visit Reporton 08-14-2024 Insurance Solicitor Office Visit Report [facility] [address], [address] [place] [address] OFFICE VISIT Date of Service: 08/14/24 MR#: [id number] Acct: [id number] Name: NISSA CRAIN Rep #: [id number] : 1995 Provider: Dr. Thelma stearns MD Age/Sex: 29/F Location: [facility] Status: Signed Intake Vital Signs 08/14/24 14:17 Weight: 141 lb 2 oz BP 126/74 H Intake Visit Reasons: NEW OB Surgical Lead Required: No Is patient in pain?: No [...] brother number of children: 1 current occupation: [employer] current occupational exposures/hazards: No pets and animals: [...] physical activity do you participate in: none antoni/latter-day: None seatbelt use: always do you feel [...] term 6lbs 9oz Male epidural Samariti an [facility] [place] Delivery Date: 04/08/22 Last Updated by: [...] GBS-Infected child: (more content not included)... Normal [facility] Service comment (Unsp spec) [Interp]Ordered By: Thelma Taveras on 08-14-2024 Pap Smear Comment (3) . . [facility] Urine cultureOrdered By: Lauri Taveras on 08-14-2024 Bacteria identified Cx Nom (U) Positive Abnormal [facility] POCT SARS-COV-2/FLU/RSV PCR SYMPTOMATIC manually resultedon 07-29-2024 FLUAV RNA SHEN+probe Ql (Resp) Detected Abnormal Not Detected [facility] Work Phone: FLUBV RNA SHEN+probe Ql (Resp) Not detected Not Detected [facility] Work Phone: Interpretation and review of laboratory results Abnormal [facility] Work Phone: RSV RNA SHEN+probe Ql (Resp) Not detected Not Detected [facility] Work Phone: SARS-CoV-2 (COVID-19) RNA SHEN+probe Ql (Resp) Not detected Not Detected [facility] Work Phone: [facility] Work Phone: COVID-19, MOLECULARon 2022 SARS-CoV-2 (COVID-19) Ab IA Ql Not detected Normal Not Detected [facility] Comment on above: Result Comment: Test ing [...] receiving treatment for. Mother currently breast-feeding Eduardo [facility] Office/Clini c Noteon [...] (J02.9: Acute pharyngitis, unspecified) Acute New to ia Symptoms are MILD Centor criteria reviewed Likely viral Discussed rationale for swab Results of rapid are NEGATIVE Discussed symptomatic treatment with tylenol and/or NSAIDs *verify with OB what she is allowed to take since she's Salt water gargle Lozenges Answered all of the patient's / parent's questions F/u PRN Ordered: Rapid Strep POC 03992 2. Viral URI (J06.9: Acute upper respiratory [...] (COVID-19) mRNA-1273 vaccine 05/08/2021 Recorded Normal [facility] Comment on above: Result Comment: Elec tronically Signed By: Rad Denney DO\Date and Time Signed: 10/10/22 17:40 EDT CBC AND DIFFERENTIALon 09-14 % AUTOMATED IMMATURE GRAN 0.1 % Normal 0.0 - 0.9 [facility] Comment on above: Result Comment: Danielle ture Granulocyte Count (IG) includes promyelocytes, myelocytes and metamyelocytes but does not include bands. Percent differential counts (%) should be interpreted in the context of the absolute cell counts (cells/L). Performed By: #### C BCDF #### [address] [address] Basophils (Bld) [#/Vol] 0.03 10*3/uL Normal 0.00 - 0.10 [facility] Comment on above: Performed By: #### C BCDF #### [address] [address] Basophils/100 WBC (Bld) 0.4 % Normal 0.0 - 2.0 [facility] Comment on above: Performed By: #### C BCDF #### [address] [address] Eosinophils (Bld) [#/Vol] 0.09 10*3/uL Normal 0.00 - 0.70 [facility] Comment on above: Performed By: #### C BCDF #### [address] [address] Eosinophils/100 WBC (Bld) 1.3 % Normal 0.0 - 6.0 [facility] Comment on above: Performed By: #### C BCDF #### [address] [address] Erythrocyte distribution width (RBC) [Ratio] 14.6 % High 11.5 - 14.5 [facility] Comment on above: Performed By: #### C BCDF #### [address] [address] Hematocrit (Bld) [Volume fraction] 38.4 % Normal 36.0 - 46.0 [facility] Comment on above: Performed By: #### C BCDF #### [address] [address] Hemoglobin (Bld) [Mass/Vol] 12.4 g/dL Normal 12.0 - 16.0 [facility] Comment on above: Performed By: #### C BCDF #### [address] [address] Lymphocytes (Bld) [#/Vol] 1.55 10*3/uL Normal 1.20 - 4.80 [facility] Comment on above: Performed By: #### C BCDF #### [address] [address] Lymphocytes/100 WBC (Bld) 22.6 % Normal 13.0 - 44.0 [facility] Comment on above: Performed By: #### C BCDF #### [address] [address] MCHC (RBC) [Mass/Vol] 32.3 g/dL Normal 32.0 - 36.0 [facility] Comment on above: Performed By: #### C BCDF #### [address] [address] MCV (RBC) [Entitic vol] 90 fL Normal 80 - 100 [facility] Comment on above: Performed By: #### C BCDF #### [address] [address] Monocytes (Bld) [#/Vol] 0.44 10*3/uL Normal 0.10 - 1.00 [facility] Comment on above: Performed By: #### C BCDF #### [address] [address] Monocytes/100 WBC (Bld) 6.4 % Normal 2.0 - 10.0 [facility] Comment on above: Performed By: #### C BCDF #### [address] [address] Neutrophils (Bld) [#/Vol] 4.74 10*3/uL Normal 1.20 - 7.70 [facility] Comment on above: Result Comment: Perc ent differential counts (%) should be interpreted in the context of the absolute cell counts (cells/L). Performed By: #### C BCDF #### [address] [address] Neutrophils/100 WBC (Bld) 69.2 % Normal 40.0 - 80.0 [facility] Comment on above: Performed By: #### C BCDF #### [address] [address] Platelets (Bld) [#/Vol] 282 10*3/uL Normal 150 - 450 [facility] Comment on above: Performed By: #### C BCDF #### [address] [address] RBC 4.27 x10E12/L Normal 4.00 - 5.20 [facility] Comment on above: Performed By: #### C BCDF #### [address] [address] WBC (Bld) [#/Vol] 6.9 10*3/uL Normal 4.4 - 11.3 [facility] Comment on above: Performed By: #### C BCDF #### [address] [address] CHEST 1 VIEWon 09-14-2022 CHEST 1 VIEW Patient Name: NISSA CRAIN STUDY: CHEST 1 VIEW; 09/14/2022 9:49 am INDICATION: Chest Pain . COMPARISON: None. ACCESSION NUMBER(S): [id number] ORDERING CLINICIAN: SCOTTIE UMANZOR FINDINGS: CARDIOMEDIASTINAL SILHOUETTE: Cardiomediastinal silhouette is normal in size and configuration. LUNGS: Lungs are clear. ABDOMEN: No remarkable upper abdominal findings. BONES: No acute osseous changes. IMPRESSION: 1. No evidence of acute cardiopulmonary process. Electronically signed by: CONY KEENAN MD Normal [facility] COMPREHENSIVE PANELon 2022 Albumin [Mass/Vol] 4.2 g/dL Normal 3.4 - 5.0 [facility] Comment on above: Performed By: #### C OINP #### [address] [address] ALP [Catalytic activity/Vol] 105 U/L Normal 33 - 110 [facility] Comment on above: Performed By: #### C OINP #### [address] [address] ALT [Catalytic activity/Vol] 10 U/L Normal 7 - 45 [facility] Comment on above: Result Comment: Vicki ents treated with Sulfasalazine may generate falsely decreased results for ALT. Performed By: #### C OINP #### [address] [address] Anion gap [Moles/Vol] 13 mmol/L Normal 10 - 20 [facility] Comment on above: Performed By: #### C OINP #### [address] [address] AST [Catalytic activity/Vol] 14 U/L Normal 9 - 39 [facility] Comment on above: Performed By: #### C OINP #### [address] [address] Bilirubin [Mass/Vol] 2.0 mg/dL High 0.0 - 1.2 [facility] Comment on above: Performed By: #### C OINP #### [address] [address] Calcium [Mass/Vol] 9.1 mg/dL Normal 8.6 - 10.3 [facility] Comment on above: Performed By: #### C OINP #### [address] [address] Chloride [Moles/Vol] 106 mmol/L Normal 98 - 107 [facility] Comment on above: Performed By: #### C OINP #### [address] [address] Creatinine [Mass/Vol] 0.70 mg/dL Normal 0.50 - 1.05 [facility] Comment on above: Performed By: #### C OINP #### [address] [address] eGFR FEMALE >90 Normal >90 [facility] Comment on above: Result Comment: CALC ULATIONS OF ESTIMATED GFR ARE PERFORMED USING THE 2020 CKD-EPI STUDY REFIT EQUATION WITHOUT THE RACE VARIABLE FOR THE IDMS-TRACEABLE CREATININE METHODS. https://jasn.asnjournals.org/content//ASN.04546 [address] Performed By: #### C OINP #### [address] [address] Glucose [Mass/Vol] 85 mg/dL Normal 74 - 99 [facility] Comment on above: Performed By: #### C OINP #### [address] [address] HCO3 (Bld) [Moles/Vol] 24 mmol/L Normal 21 - 32 [facility] Comment on above: Performed By: #### C OINP #### [address] [address] Potassium [Moles/Vol] 4.1 mmol/L Normal 3.5 - 5.3 [facility] Comment on above: Performed By: #### C OINP #### [address] [address] Protein [Mass/Vol] 6.7 g/dL Normal 6.4 - 8.2 [facility] Comment on above: Performed By: #### C OINP #### [address] [address] Sodium [Moles/Vol] 139 mmol/L Normal 136 - 145 [facility] Comment on above: Performed By: #### C OINP #### [address] [address] Urea nitrogen [Mass/Vol] 17 mg/dL Normal 6 - 23 [facility] Comment on above: Performed By: #### C OINP #### [address] [address] Covid 19 Resultson 3 SARS-CoV-2 (COVID-19) RNA [...] You may also be contacted by the [facility] [place] [facility] to see if any of your [...] or Naproxen (Aleve) can also be used. Gump-zrp-vormswz cough and cold medicines can be used according to the instructions on the package. Some jotp-tkm-prhwywc medicines also contain acetaminophen. Make sure you [...] water are not available, use alcohol-based hand otolaryngologist. Avoid touching your eyes, nose, and mouth [...] 24 terri (more content not included)... Normal [facility] D-DIMER, VTE EXCLUSIONon D-DIMER, VTE EXCLUSION 344 ng/mL FEU Normal < or = 500 [facility] Comment on above: Result Comment: The VTE [...] exclusion.) Performed By: #### D IMEX #### [place] [address] GROUP A STREP,PCRon 09-15-19 23 GROUP A STREP,PCR Not detected Normal Not Detected [facility] Comment on above: Result Comment: This test was performed utilizing an FDA-cleared rapid nucleic acid amplification by PCR to qualitatively detect Group A Streptococci from throat swab specimens without the need for culture confirmation of negative results. Performed By: #### G APC1 #### [place] [address] Lab Specimen Source Throat Normal [facility] Comment on above: Performed By: #### G APC1 #### [place] [id number] HCG,BETA-QUANTITATIVEon 09-05 HCG,BETA-QUANTITATIVE <2 Normal [facility] Comment on above: Result Comment: . Total HCG measurement is performed using the Wes Demetria Access Immunoassay which detects intact HCG and free beta HCG subunit. . This test is not indicated for use as a tumor marker. HCG testing is performed using a different test methodology at [facility] than other [facility]. Direct result comparison should only be made within the same method. REF VALUES NON FEMALE <5 MALES <5 Performed By: #### C OINP #### [place] [id number] INFLUENZA A/B, COVID 2019 PC R,SYMPTOMATICon 09-14-2022 INFLUENZA A, PCR Not detected Normal Not Detected [facility] Comment on above: Result Comment: Resp iratory virus testing is performed routinely by PCR for Influenza A/B and RSV. Not Detected results do not preclude Influenza A/B or RSV infections since the adequacy of sample collection or low viral burden may impact the clinical sensitivity of this test method. Performed By: #### C OINP #### [place] [address] INFLUENZA B, PCR Not detected Normal Not Detected [facility] Comment on above: Result Comment: Resp iratory virus testing is performed routinely by PCR for Influenza A/B and RSV. Not Detected results do not preclude Influenza A/B or RSV infections since the adequacy of sample collection or low viral burden may impact the clinical sensitivity of this test method. Performed By: #### C OINP #### [place] [address] SARS-CoV-2 (COVID-19) RNA SHEN+probe Ql (Unsp spec) Not detected Normal Not Detected [facility] Comment on above: Result Comment: . This test has received FDA Emergency Use Authorization (EUA) and has been verified by [facility]. This test is only authorized for the duration of time that circumstances exist to justify the authorization of the emergency use of in vitro diagnostic tests for the detection of SARS-CoV-2 virus and/or diagnosis of COVID-19 infection under section 564(b)(1) of the Act, 21 U.S.C. 360bbb-3(b)(1), unless the authorization is terminated or revoked sooner. [facility] is certified under CLIA-88 as qualified to perform high complexity testing. Testing is performed in the [facility] laboratory located at [address] [place] [address]. SARS-CoV-2/Flu/RSV Multiplex Test: Fact sheet for providers: https://www.fda.gov/media/988728/download Fact sheet for patients: https://www.fda.gov/media/425893/download Performed By: #### C OINP #### [place] [address] Lab Specimen Source Nasal, Nasopharyngeal Normal [facility] Comment on above: Performed By: #### C OINP #### [place] [address] Provider Note - ED v3on 09-05 Provider [...] with sinus rhythm at 96 bpm. The VT interval is 132 ms. The QRS duration is 74 ms. The QTc is 432 ms. [place] is 7 degrees. Patient was seen and [...] chart was dictated with the use of Secret Space software within the framework of the current [...] oral capsule (more content not included)... Normal [facility] Risk Screen - Adult Emergenc yon 09-14-2022 Risk Screen - Adult Emergency Preferred Language: Preferred Language: Preferred Language for Discussing Health Care (patient/designee)Montenegrin Patient Preferred Pharmacy: Patient Preferred Pharmacy Statement: [...] Learning Preferencesverbal instruction Cultural Considerationsnone Developmental Considerationsnone Jew Considerationsnone Other Learnersfamily Learning Assessment (Other Learner): Learning Assessment (Other Learner): Other learner availableyes... Learnerfamily Factors Influencing Readiness to Learnn/a Factors that Impact Ability to Learnnone Devices/Methods Used to Communicatenone Learning Preferencesverbal instruction Cultural Considerationsnone Developmental Considerationsnone Jew Considerationsnone Pressure Injury/TB/Substance: Pressure Injury: Do you have a coughyes... Has your cough lasted longer than 2 weeksno Smoking Statusnever smoker Alcohol Usedenies Drug Usedenies Admission Risk Screen: Significant IndicatorsComplete CAGE: CAGE: Is this an injured [place] at a Tra[place] Center [place] [place]/[place]/ [place]): no Electronic Signatures: Mariana Kirk (JONATHON) (Signed 14-Sep-2022 08:54) Authored: Preferred Language, Patient Preferred Pharmacy, Advanced Directives, Family Violence Adult, Learning Assessment (Patient), Learning Assessment (Other Learner), Pressure Injury/TB/Substance, Pressure Injury, CAGE Last Updated: 14-Sep-2022 08:54 by Mariana Kirk (JONATHON) Normal [facility] TROPONIN I, HIGH SENSITIVITY on 09-14-2022 TROPONIN I, HIGH SENSITIVITY <3 Normal 0 - 13 [facility] Comment on above: Result Comment: . Less [...] performed using a different testing methodology at [facility] than at other [facility]. Direct result comparisons should only be made within the same method. Performed By: #### C NP #### [facility] [address] [id number] Triage - EDon 09-14-2022 Triage - ED Quick Triage: Are You no Have You Given In The Last 6 Weeksno Are You Currently Breastfeedingyes Chart Review: PRIMARY ASSESSMENT ABCD Normal Findings: airway open and patent, circulation normal and alert and oriented ARRIVAL INFORMATION Means of Arrival: Ambulatory Mode of Arrival: private vehicle Arrival From: home Accompanied By: self Language: Spoken Language Preferred: Montenegrin Reading Language Preferred: Montenegrin Present on Arrival: Device Present on Arrival [...] BMI (kg/m2): 22.518 Calculated BSA (m2) 1.49 Lisle Coma Scale: Best Eye Response: (E4) spontaneous Best Motor Response: (M6) obeys commands Best Verbal Response: (V5) oriented Lisle Score: 15 Allergies: no Last menstrual period: [...] Updated: 14-Sep-2022 08:53 by Mariana Kirk (JONATHON) [facility] Ambulatory Visit Summaryon 1 08-27-2021 Ambulatory Visit [...] right eye Duration: 7 Days Pickup at [facility]/pharmacy #[id number] Pharmacy Information [facility]/pharmacy #[id number]: [address] [place], [place] [id number] [phone] Allergies No Known Allergies Education Materials Bacterial [...] to feel better. ? Take or apply knhh-ldg-lczflbg and prescription medicines only as told by [...] membrane t (more content not included)... Normal [facility] Medicine Office/Clini c Noteon 06-26-2022 Family Medicine Office/Clinic Note Chief Complaint Est [place] eye HPI Staff eye symptoms started yesterday [...] for 7 day(s), 10 mL, Refill(s) 0, [facility]/pharmacy #[id number] 2. Acute nasopharyngitis (J00: Acute nasopharyngitis [common [...] Tobacco Use:. Never Smokeless Tobacco Use:., 06/26/2022 [facility] Comment on above: Result Comment: Elec [...] to feel better. ? Take or apply edlm-xwt-elhtrur and prescription medicines only as told by [...] 06/24/2006 Document Revised: 10/13/2019 Document Reviewed: 01/28/2019 [employer] Patient Education ? 2019 [employer] Upper Respiratory Infection, Adult An upper respiratory infection (URI) is a common viral infection of the nose, throat, an (more content not included)... Normal [facility] YARD PIPE GRADER - Office Visiton 05-08 YARD PIPE GRADER - Office Visit Provider Emilie mace Patient [...] TABS Vitals Vital Signs Recorded: 18May2022 02:10PM Dnutdomg611 Twehhugrw34 Height5 ft 1 in Iboosc495 lb 4 oz BMI Eydgtsfiav34.67 kg/m2 BSA Calculated1.55 Physical Exam Constitutional: Healthy-appearing [...] May 18 2022 2:23PM EST (Author) Normal [employer] YARD PIPE GRADER - Office Visiton YARD PIPE GRADER - Office Visit Diagnoses/Problems Assessed Gestational hypertension [...] STOOL HAS BEEN BLACK. History of Present Ydjjbqq17gx presents for blood pressure check. Patient was [...] TABS Vitals Vital Signs Recorded: 13Apr2022 09:06AM Xngkcrhk126 Ghujqntjw54 Height5 ft 1 in Mjwcjx522 lb 1.28 oz BMI Jvmgzavrow32.03 kg/m2 BSA Calculated1.64 Physical Exam General: None [...] Apr 13 2022 9:14AM EST (Author) Normal [facility] Daily Progress Note - OB-Pos t-partumon 04-10-2022 Daily Progress Note - OX-Wukt-zidrsb Current Stage: Stage: Post- Subjective Data: Post : Ambulate: Yes Flatus: Yes Tolerate Diet: Yes Lochia: Moderate : Patient doing well. Pain controlled. Bleeding stable. Working on breast-feeding. Denies any fevers chills chest pain shortness of breath or calf pain. Denies any headache or vision changes Objective Information: Objective Information: T PRBPMAPSpO2 Value36.25428223/3482363% Date/Time04/09 23: 23: 23: 23: 23: 23:58 Range(36.3C - 36.7C ) (85 - 107 ) (16 - 16 ) (119 - 142 )/ (80 - 98 ) (93 - 114 ) (98% - 100% ) Pain reported at 04/10 2:20: 0 = None ---- Intake and Output ----- Mn/Dy/Year TimeIntakeOutUNC [facility] Apr 08, 2022 10:00 [id number] Apr 08, 2022 2:00 [id number] Apr 08, 2022 6:00 [id number] The Intake and Output Totals for the last 24 hours are: IntakeOutputNet [id number] Physical Exam: Constitutional: alert, oriented Obstetric: Uterus [...] 10-Apr-2022 04:52 by Aster Frank () Normal [facility] CBCon 04-09-2022 Erythrocyte distribution width (RBC) [Ratio] 14.4 % Normal 11.5 - 14.5 [facility] Comment on above: Performed By: #### C BC #### [address] [address] Hematocrit (Bld) [Volume fraction] 26.2 % Low 36.0 - 46.0 [facility] Comment on above: Performed By: #### C BC #### [address] [address] Hemoglobin (Bld) [Mass/Vol] 8.6 g/dL Low 12.0 - 16.0 [facility] Comment on above: Performed By: #### C BC #### [address] [address] MCHC (RBC) [Mass/Vol] 33.0 g/dL Normal 32.0 - 36.0 [facility] Comment on above: Performed By: #### C BC #### [address] [address] MCV (RBC) [Entitic vol] 91 fL Normal 80 - 100 [facility] Comment on above: Performed By: #### C BC #### [address] [address] Platelets (Bld) [#/Vol] 250 10*3/uL Normal 150 - 450 [facility] Comment on above: Performed By: #### C BC #### [address] [address] RBC 2.88 x10E12/L Low 4.00 - 5.20 [facility] Comment on above: Performed By: #### C BC #### [address] [address] WBC (Bld) [#/Vol] 17.2 10*3/uL High 4.4 - 11.3 [facility] Comment on above: Performed By: #### C #### [address] [address] Daily Progress Note - OB-Pos t-partumon 04-09-2022 Daily Progress Note - QD-Ityy-heuvwf Current Stage: Stage: Post- Subjective Data: Post : Ambulate: Yes Flatus: Yes Tolerate Diet: Yes Lochia: Moderate : Patient doing well. Pain controlled. Bleeding stable. Patient breast-feeding. Denies any fevers chills chest pain shortness of breath. Denies headaches or vision changes Objective Information: Objective Information: T PRBPMAPSpO2 Value36.92707615/9532526% Date/Time04/09 3: 8: 3: 8: 8: 8:13 Range(36.5C - 36.8C ) (64 - 163 ) (14 - 20 ) (100 - 150 )/ (59 - 95 ) (74 - 112 ) (89% - 100% ) Pain reported at 04/09 6:00: sleeping ---- Intake and Output ----- Mn/Dy/Year TimeIntakeOutputCarolinas [facility] Apr 09, 2022 6:00 [id number] Apr 08, 2022 10:00 [id number] Apr 08, 2022 2:00 [id number] The Intake and Output Totals for the last 24 hours are: IntakeOutputNet [id number] Assessment and Plan: Assessment: 1)PPD#1-working on breast-feeding increase ambulation 2)DVT PPX-SCD ambulation 3)GHTN-BPs stable. Pt has home cuff. Will likely need close interval followup Electronic Signatures: Aster Frank) (Signed 09-Apr-2022 08:25) Authored: Current Stage, Subjective Data, Objective Data, Assessment and Plan, Note Completion Last Updated: 09-Apr-2022 08:25 by Aster Frank () Normal [facility] Discharge Wyzhhxd8da 022 Discharge Profile2 Discharge Orders: Anticipated Discharge Date: Anticipated Discharge Fjnx20-Adq-4902 Problem List: Additional Dx: Gestational hypertension: Catalog [...] 110 or higher, call your doctor or adjutant general immediately. Blood Pressure Systolic (upper number) 150 - 159 OR Diastolic (bottom number) 100 - 109, repeat in one hour. If repeat Blood Pressure Systolic 150 - 159 OR Diastolic 100 - 109, call your doctor or adjutant general to discuss blood pressure management.. Diet: Regular. Follow-Up - OB Provider: Physician/Dept/ServiceOB Provider Scheduled Date/Hyio59-Egv-4373 Provider FINAL REVIEW of Orders: Final Review: [...] to nearest emergency room. *[facility]: Save Your Life: Get Care for These POST- Warning Signs On Behalf on the [facility] Maternity Staff, Congratulations on your . [...] us a call. Also, please join our [facility] Support Group which meets the saturday of every month at 10 am in the OB unit. No need to register. I (more content not included)... Normal [facility] Laboratory - Hematology and Cell countson 04-09-2022 Erythrocyte distribution width (RBC) [Ratio] 14.4 % See Below [employer] Work Phone: Comment on above: Reference Range: 11. 5 - 14.5 Hematocrit (Bld) [Volume fraction] 26.2 % below low threshold See Below [employer] Work Phone: Comment on above: Reference Range: 36. 0 - 46.0 Hemoglobin (Bld) [Mass/Vol] 8.6 g/dL below low threshold See Below [employer] Work Phone: Comment on above: Reference Range: 12. 0 - 16.0 MCHC (RBC) [Mass/Vol] 33.0 g/dL See Below [facility] Work Phone: Comment on above: Reference Range: 32. 0 - 36.0 MCV (RBC) [Entitic vol] 91 fL 80 - 100 [employer] Work Phone: Platelets (Bld) [#/Vol] 250 10*3/uL 150 - 450 [employer] Work Phone: RBC (Bld) [#/Vol] 2.88 {x10E12/L} below low threshold See Below [employer] Work Phone: Comment on above: Reference Range: 4.0 0 - 5.20 WBC (Bld) [#/Vol] 17.2 10*3/uL above high threshold 4.4 - 11.3 [employer] Work Phone: Order Reconciliationon 04-09 Order Reconciliation [...] required Benzocaine 20% - Menthol 0.5% Topical Cresco (DERMOPLAST)DOSE = 1 application(s) Topical 4 Times [...] mL Oral E (more content not included)... [facility] Order Reconciliation Page 1 Admission Reconciliation Document Reconciliation Type: Admission requested on behalf of Aster Frank (Physician) done by Aster Frank (DO) Admission - Reconciliation: 09-Apr-2022 08:28 by: Aster Frank (DO) Home MedicationsEnteredLast Dose TakenReconciled with current Order Reconciliation Comment/ Additional Information 1 oral capsule orally once a fmg68-Ruo-302210-Yhi-5553 AM Reviewed and Held Documentation of outpatient medication history is incomplete. Additional Current Orders Acetaminophen Rectal Suppository (TYLENOL)DOSE = 650 mg Rectal Once, PRN Initial pain mgmt following deliveryClinician Notes: Administer in the OR. Acetaminophen Tablet (TYLENOL)DOSE = 975 mg Oral Every 6 Hours, PRN Headache Benzocaine 20% - Menthol 0.5% Topical Cresco (DERMOPLAST)DOSE = 1 application(s) Topical 4 Times [...] to administration.Note (more content not included)... Normal [facility] Admission Risk Screen - OBon 04-08-2022 Admission [...] material(2) Cultural Considerationsnone (2) Developmental Considerationsnone (2) Jew Considerationsnone (2) Learning Assessment (Other Learner): Other [...] Spiritual Screen: Are there any cultural, spiritual, jainism practices/values/needs that are important for us to knowno Depression Screen: During the past month, have you often been bothered by feeling down, depressed or hopelessno (1) During the past month, have you often had little interest or pleasure in doing thingsno (1) Have you had any thoughts of harming anyone elseno (1) [place] Suicide: Risk Screen Not Applicable/Able to Answerable to be screened In the Past Month: Have you wished you were or could go to sleep and not wake upno In the Past Month: Have you had any actual thoughts of killing yourselfno Lifetime: Have you ever done, started to do, or prepared to do anything to end your lifeno [place] Suicide Risknegative Family Violence Screen: Are you [...] September 3 (more content not included)... Normal [facility] CORONAVIRUS 2019, SCREEN ASY MPTOMATICon 04-08-2022 SARS-CoV-2 (COVID-19) RNA SHEN+probe Ql (Unsp spec) Not detected Normal Not Detected [facility] Comment on above: Result Comment: . This test has received FDA Emergency Use Authorization (EUA) and has been verified by [facility]. This test is only authorized for the duration of time that circumstances exist to justify the authorization of the emergency use of in vitro diagnostic tests for the detection of SARS-CoV-2 virus and/or diagnosis of COVID-19 infection under section 564(b)(1) of the Act, 21 U.S.C. 360bbb-3(b)(1), unless the authorization is terminated or revoked sooner. [facility] is certified under CLIA-88 as qualified to perform high complexity testing. Testing is performed in the [facility] laboratory located at [address] [place] [address]. SARS-CoV-2/Flu/RSV Multiplex Test: Fact sheet for providers: https://www.fda.gov/media/247396/download Fact sheet for patients: https://www.fda.gov/media/888787/download Performed By: #### C OVSC #### [place] [address] Lab Specimen Source Nasal, Nasopharyngeal [facility] Comment on above: Performed By: #### C OVSC #### [place] [address] Covid 19 Resultson SARS-CoV-2 (COVID-19) RNA SHEN+probe [...] You may also be contacted by the [facility] [place] [facility] to see if any of your [...] or Naproxen (Aleve) can also be used. Lueh-ulj-sdjeysu cough and cold medicines can be used according to the instructions on the package. Some szcf-jhe-zioyuuu medicines also contain acetaminophen. Make sure you [...] water are not available, use alcohol-based hand otolaryngologist. Avoid touching your eyes, nose, and mouth [...] 24 terri (more content not included)... Normal [facility] Daily Progress Note - OB-Int ender 04-08-2022 Daily Progress Note - OB-Intrapartum Current Stage: Stage: Intrapartum Subjective Data: Intrapartum: Intrapartum Progress Notes Called in for recurrent variables. Patient had spontaneous rupture of membranes approximately at 530 this morning. Patient also had an epidural placed. Objective Information: Objective Information: T PRBPMAPSpO2 Value36.411896096/[id number] 0% Date/Time04/08 9: 9: 7: 9: 9: 9:18 Range(36.6C - 36.8C ) (64 - 163 ) (14 - 18 ) (100 - 145 )/ (59 - 107 ) (74 - 116 ) (97% - 100% ) Pain reported at 04/08 4:00: pt dozing ---- Intake and Output ----- Mn/Dy/Year TimeIntakeOutputNet Apr 08, 2022 6:00 [id number] The Intake and Output Totals for the last 24 hours are: IntakeOutputNet [id number] Physical Exam: Constitutional: Awake alert in no [...] Testing: NST Interpretation - Baby A: Baseline CFX984 Variabilitymoderate (amplitude range 6 to 25 bpm) [...] Last Updated: 08-Apr-2022 09:30 by Ev Mccartney) [facility] Delivery Recordon 04-08-2022 Delivery Record Lab Tests/Results: [...] Lane Solis RN Delivery Information: Team: Team jmjgvxio24-Tor-7985 15:10 Code [place] IndicationMarilinting Jl MANNING present for delivery d/t FHR strip during labor team cietokh84-Eay-4633 15:30 Assistant Reading Teacher Information: Baby's Post Discharge Care Provider (Provider Name, Address and Phone Number) [facility] Name of Inhouse PediatricianMarichuy Parikh RESIDENTIAL MORTGAGE MANAGER A Delivery Information: Baby A Delivery: Rupture of Membranes date/pjej39-Ucc-7213 05:45 Amniotic Fluid Colorclear Delivery Typevaginal delivery Delivery Locationlabor and delivery Delivery Date/Cypw52-Ynb-3331 15:53 Delivery Date/Time Verified Kareen Solis RN Length of Time of ROM (rounded down to nearest hour)10 Sexmale Identification Band [id number] Electronic Transponder [id number] ID Bands Verified Kareen Solis RN & [...] 20:16) Authored: Lab Tests/Results, Maternal Delivery Information, [place] Delivery Information Last Updated: 08-Apr-2022 20:16 by Savana Solis (CLIN COOR) [facility] Discharge Planning Kuvw2mx 1 Discharge Planning Note2 Discharge Planning: Anticipated Discharge Nrju14-Ohg-3020 Discharge Planning Date and Time: 04/07/0107/08/2021 @ [...] additional questions after discharge. Signature: Gabriela Dotson RNkiln maintenance: Discharge Planning Assessment Saed50-Vvy-2334 [place] (1) Nursing Checklist: Lines/Cathetersremoved/ap propriate for next level of care Discharge Med Rec Reconciled with Jerry Patient has Prescriptionsyes Transportation for Discharge Confirmedyes Follow up Reviewedyes DME equipment orderedyes Discharge Instructions Reviewed WithPatient, Significant Other Discharge Instructions Outcomeverbalize recall/understanding Discharge Instructions Review Completed with Patient/Family (diet, activity, pt instructions)yes Discharge Documentation: Discharge/Transfer Date/Puab70-Mka-5067 12:20 Discharged Accompanied Byspouse Discharge Modeambulatory Transportation Methodprivate car Code StatusCode Status order at time of discharge: Full Code [place] DNR Form Sent with Patient and/or Familyn/a [...] Triage Note - OB v4 07-Apr-2022 18:36 [facility] Patient Profile - OB v3on Patient Profile - OB v3 Profile: Initial Info: How to be AddressedKaylee Spoken Language PreferredEnglish (1) Source of Informationpatient; health record Reason for admission this visitexpected delivery Primary Contact Name and [phone] Wants Family/Rep Notified of Admissionn/a; family present Notify PCPnotify PCP Informed of Patient Visiting Rightsyes Limitations on Visitors/Phone Callsnone [place]rived [place] Was Admitted To in Past 90 Daysnone Patient Belongingsremains with patient Patient Belongings Remaining with Patientclothing; purse/wallet; cell phone/electronics Home Meds have been Reviewed and Verified with Patient/Familyyes Medications Brought to Hospitalno Info: Gravida1 (1) Term Deliveries0 (1) Deliveries0 (1) Abortions0 (1) Living Children0 (1) Patient stated SGP10-Iqp-5928 Calculation of EGA based on patient stated EDD38.3 Records availableyes Trimester Care Initiatedfirst Care ProviderDrBucky Frank Current Risksasthma, Group B strep positive Previous live (any gestational age)no Planno Baby's Post Discharge Care Provider (Provider Name, Address and Phone Number) [facility] Feedingbreastmilk Benefits of Breast Milk DiscussionThe benefits of exclusive breast milk feeding and the risk of adding formula have been discussed with patient / mother. Discussion Date / Xamb34-Nsv-8091 23:46 Previous Experienceno General Health: Current Weight in kg71.2 kilogram(s) Current Weight in ozc218.9 pound(s) Weight Methodactual (measured) Scale Typestanding Pre [...] Lives Withspouse; parent(s) Resource/Environmental Concernsnone [facility] Anticipated at Transitionnone Additional Information: [...] Note - OB v4 07-Apr-2022 18:36 Normal [facility] SYPHILIS SCREENING WITH REFL EXon 04-08-2022 SYPHILIS TOTAL AB Non-Reactive Normal NONREACTIVE [facility] Comment on above: Result Comment: No s ignificant level of Treponema pallidum antibody detected. Repeat testing in 2 to 4 weeks may be considered if early infection or incubating syphilis infection is suspected. Performed By: #### C OINP #### [place] [address] Lab Specimen Source Normal [facility] Comment on above: Performed By: #### C OINP #### [address] [id number] TYPE + SCREENon 04-08-2022 ABO TYPE O Normal [facility] Comment on above: Performed By: #### T +S #### [address] [id number] RH TYPE Positive Normal [facility] Comment on above: Performed By: #### T +S #### [address] [id number] CBCon 04-07-2022 Erythrocyte distribution width (RBC) [Ratio] 14.5 % Normal 11.5 - 14.5 [facility] Comment on above: Performed By: #### C OINP #### [address] [id number] Hematocrit (Bld) [Volume fraction] 31.9 % Low 36.0 - 46.0 [facility] Comment on above: Performed By: #### C OINP #### [address] [id number] Hemoglobin (Bld) [Mass/Vol] 10.6 g/dL Low 12.0 - 16.0 [facility] Comment on above: Performed By: #### C OINP #### [address] [id number] MCHC (RBC) [Mass/Vol] 33.3 g/dL Normal 32.0 - 36.0 [facility] Comment on above: Performed By: #### C OINP #### [address] [id number] MCV (RBC) [Entitic vol] 90 fL Normal 80 - 100 [facility] Comment on above: Performed By: #### C OINP #### [address] [id number] Platelets (Bld) [#/Vol] 269 10*3/uL Normal 150 - 450 [facility] Comment on above: Performed By: #### C OINP #### [place] [address] RBC 3.53 x10E12/L Low 4.00 - 5.20 [facility] Comment on above: Performed By: #### C OINP #### [address] [address] WBC (Bld) [#/Vol] 12.9 10*3/uL High 4.4 - 11.3 [facility] Comment on above: Performed By: #### C OINP #### [address] [id number] COMPREHENSIVE PANELon 2021 Albumin [Mass/Vol] 3.5 g/dL Normal 3.4 - 5.0 [facility] Comment on above: Performed By: #### C OINP #### [address] [id number] ALP [Catalytic activity/Vol] 195 U/L High 33 - 110 [facility] Comment on above: Performed By: #### C OINP #### [address] [id number] ALT [Catalytic activity/Vol] 11 U/L Normal 7 - 45 [facility] Comment on above: Result Comment: Vicki ents treated with Sulfasalazine may generate falsely decreased results for ALT. Performed By: #### C OINP #### [address] [address] Anion gap [Moles/Vol] 14 mmol/L Normal 10 - 20 [facility] Comment on above: Performed By: #### C OINP #### [address] [address] AST [Catalytic activity/Vol] 15 U/L Normal 9 - 39 [facility] Comment on above: Performed By: #### C OINP #### [address] [address] Bilirubin [Mass/Vol] 0.8 mg/dL Normal 0.0 - 1.2 [facility] Comment on above: Performed By: #### C OINP #### [address] [address] Calcium [Mass/Vol] 9.2 mg/dL Normal 8.6 - 10.3 [facility] Comment on above: Performed By: #### C OINP #### [address] [address] Chloride [Moles/Vol] 105 mmol/L Normal 98 - 107 [facility] Comment on above: Performed By: #### C OINP #### [address] [address] Creatinine [Mass/Vol] 0.59 mg/dL Normal 0.50 - 1.05 [facility] Comment on above: Performed By: #### C OINP #### [address] [address] eGFR FEMALE >90 Normal >90 [facility] Comment on above: Result Comment: CALC ULATIONS OF ESTIMATED GFR ARE PERFORMED USING THE 2020 CKD-EPI STUDY REFIT EQUATION WITHOUT THE RACE VARIABLE FOR THE IDMS-TRACEABLE CREATININE METHODS. https://jasn.asnjournals.org/content//ASN.51402 25638 Performed By: #### C OINP #### [address] [address] Glucose [Mass/Vol] 78 mg/dL Normal 74 - 99 [facility] Comment on above: Performed By: #### C OINP #### [address] [address] HCO3 (Bld) [Moles/Vol] 21 mmol/L Normal 21 - 32 [facility] Comment on above: Performed By: #### C OINP #### [address] [address] Potassium [Moles/Vol] 3.8 mmol/L Normal 3.5 - 5.3 [facility] Comment on above: Performed By: #### C OINP #### [address] [address] Protein [Mass/Vol] 6.0 g/dL Low 6.4 - 8.2 [facility] Comment on above: Performed By: #### C OINP #### [address] [address] Sodium [Moles/Vol] 136 mmol/L Normal 136 - 145 [facility] Comment on above: Performed By: #### C OINP #### [place] [address] Urea nitrogen [Mass/Vol] 7 mg/dL Normal 6 - 23 [facility] Center Comment on above: Performed By: #### C OINP #### [place] [address] Coronavirus 2019 RNA by PCR, Screening Asymptomticon 04-07-2022 Coronavirus 2019 RNA by PCR, Screening Asymptomtic Not detected Normal See Below [place] [address] [employer] Work Phone: Comment on above: SOURCE: Nasal, Nasop haryngealReference Range: Not Detected.This test has received FDA Emergency Use Authorization (EUA) and has been verified by [facility]. This test is only authorized for the duration of time that circumstances exist to justify the authorization of the emergency use of in vitro diagnostic tests for the detection of SARS-CoV-2 virus and/or diagnosis of COVID-19 infection under section 564(b)(1) of the Act, 21 U.S.C. 360bbb-3(b)(1), unless the authorization is terminated or revoked sooner. [facility] is certified under CLIA-88 as qualified to perform high complexity testing. Testing is performed in the [facility] laboratory located at [address] [place] [address].SARS-CoV-2/Flu/RSV Multiplex Test: Fact sheet for providers: https://www.fda.gov/media/584928/downloadFact sheet for patients: https://www.fda.gov/media/455029/download Laboratory - Blood bankon ABO group Nom (Bld) O Women [place] [address] [employer] Work Phone: Blood group antibody screen Ql Negative [place] [address] [employer] Work Phone: Rh immune globulin screen (Bld) [Interp] Positive [place] [address] [employer] Work Phone: Laboratory - Chemistry and C hemistry - challengeon 04-07-2022 Albumin BCP dye [Mass/Vol] 3.5 g/dL 3.4 - 5.0 [facility] [employer] [facility] Work Phone: ALP [Catalytic activity/Vol] 195 U/L above high threshold 33 - 110 [facility] [employer] [facility] Work Phone: [phone] ALT With P-5'-P [Catalytic activity/Vol] 11 U/L 7 - 45 [facility] [employer] [facility] Work Phone: Comment on above: Patients treated wit h Sulfasalazine may generate falsely decreased results for ALT. Anion gap [Moles/Vol] 14 mmol/L 10 - 20 [facility] [employer] Work Phone: AST With P-5'-P [Catalytic activity/Vol] 15 U/L 9 - 39 [facility] [employer] [facility] Work Phone: Bilirubin [Mass/Vol] 0.8 mg/dL 0.0 - 1.2 [facility] Work Phone: Calcium [Mass/Vol] 9.2 mg/dL 8.6 - 10.3 [facility] Work Phone: Chloride [Moles/Vol] 105 mmol/L 98 - 107 [facility] [employer] [facility] Work Phone: CO2 [Moles/Vol] 21 mmol/L 21 - 32 [facility] [employer] Work Phone: Creatinine [Mass/Vol] 0.59 mg/dL See Below [facility] Work Phone: Comment on above: Reference Range: 0.5 0 - 1.05 Glucose [Mass/Vol] 78 mg/dL 74 - 99 [facility] [employer] Work Phone: Potassium [Moles/Vol] 3.8 mmol/L 3.5 - 5.3 [facility] [employer] Work Phone: Protein [Mass/Vol] 6.0 g/dL below low threshold 6.4 - 8.2 [facility] [employer] [facility] Work Phone: Sodium [Moles/Vol] 136 mmol/L 136 - 145 [facility] [employer] Work Phone: Urea nitrogen [Mass/Vol] 7 mg/dL 6 - 23 [facility] [employer] [facility] Work Phone: Laboratory - Hematology and Cell countson 04-07-2022 Erythrocyte distribution width (RBC) [Ratio] 14.5 % See Below [facility] HospitalSequel PharmaceuticalsA[facility] [employer] Work Phone: Comment on above: Reference Range: 11. 5 - 14.5 Hematocrit (Bld) [Volume fraction] 31.9 % below low threshold See Below [facility] [employer] [facility] Work Phone: Comment on above: Reference Range: 36. 0 - 46.0 Hemoglobin (Bld) [Mass/Vol] 10.6 g/dL below low threshold See Below [facility] [employer] [facility] Work Phone: Comment on above: Reference Range: 12. 0 - 16.0 MCHC (RBC) [Mass/Vol] 33.3 g/dL See Below [facility] [employer] [facility] Work Phone: Comment on above: Reference Range: 32. 0 - 36.0 MCV (RBC) [Entitic vol] 90 fL 80 - 100 [facility]select [facility] southForticom [facility] [employer] [facility] Work Phone: [phone] Platelets (Bld) [#/Vol] 269 10*3/uL 150 - 450 [facility]xselect [facility] southForticom [facility] [employer] [facility] Work Phone: RBC (Bld) [#/Vol] 3.53 {x10E12/L} below low threshold See Below [employer] Work Phone: Comment on above: Reference Range: 4.0 0 - 5.20 WBC (Bld) [#/Vol] 12.9 10*3/uL above high threshold 4.4 - 11.3 [employer] Pharm[employer]Ting [employer] Work Phone: No Panel Informationon 04-07 >90 >90 ToniSequel PharmaceuticalsTing [employer] Work Phone: Comment on above: CALCULATIONS OF CECE MATED GFR ARE PERFORMED USING THE 2020 CKD-EPI STUDY REFIT EQUATION WITHOUT THE RACE VARIABLE FOR THE IDMS-TRACEABLE CREATININE METHODS.https://jasn.asnjournals.org/content///A SN.6647584903 Risk Screen - OB Triageon Risk Screen [...] demonstration; written material Cultural Considerationsnone Developmental Considerationsnone Jew Considerationsnone Learning Assessment (Other Learner): Other learner availableno Depression/Suicide: Depression Screen: During the past month, have you often been bothered by feeling down, depressed or hopelessno During the past month, have you often had little interest or pleasure in doing thingsno Have you had any thoughts of harming anyone elseno [place] Suicide: Risk Screen Not Applicable/Able to Answerable to be screened In the Past Month: Have you wished you were or could go to sleep and not wake upno In the Past Month: Have you had any actual thoughts of killing yourselfno Lifetime: Have you ever done, started to do, or prepared to do anything to end your lifeno [place] Suicide Risknegative Family Violence: Abuse Screen: Are [...] Last Updated: 07-Apr-2022 18:36 by Eleanor Jim) [facility] SYPHILIS SCREENING WITH REFL EXon 04-07-2022 T. pallidum IgG+IgM IA Ql (S) Non-Reactive See Below [facility] [employer] Work Phone: Comment on above: SOURCE: Reference Ra nge: NONREACTIVENo significant level of Treponema pallidum antibody detected. Repeat testing in 2 to 4 weeks may be considered if early infection or incubating syphilis infection is suspected. TOTAL PROTEIN, URINE SPOTon 04-07-2022 CREATININE,URINE 75.0 mg/dL Normal 20.0 - 320.0 [facility] Comment on above: Performed By: #### T PS2 ####[address] [address] T. PROTEIN/CREAT RATIO 0.20 mg/mg Creat High 0.00 - 0.17 [facility] Comment on above: Performed By: #### T PS2 ####[address] [address] TOTAL PROT,URINE SPOT 15 mg/dL Normal 5 - 24 [facility] Comment on above: Performed By: #### T PS2 ####[address] [address] Total Protein, Urine Spoton 04-07-2022 Creatinine (U) [Mass/Vol] 75.0 mg/dL See Below [place] [address] [employer] Work Phone: Comment on above: Reference Range: 20. 0 - 320.0 Protein (U) [Mass/Vol] 15 mg/dL 5 - 24 Wo [facility]Mc[facility] [employer] [facility] Work Phone: Protein/Creatinine (U) [Ratio] 0.20 {mg/mg_Creat} above high threshold See Below [place] [address] [employer] Work Phone: Comment on above: Reference Range: 0.0 0 - 0.17 Triage Note - OB v4on 2021 Triage Note - OB v4 Triage: General Info: Time of Arrival on [id number] 18:19 Patient arrived viawheelchair [place] Acuity Level4 Time Acuity Level [id number] 18:22 Chief Complaintelevated BP Spoken Language PreferredEnglish Source of Informationpatient Weight in kg71.2 kilogram(s) Weight in ayu469.9 pound(s) Weight Methodactual (measured) Scale Typestanding Height in feet5 feet Height in inches0 inch(es) Height in cm152.4 centimeter(s) Height Methodstated BMI (kg/m2)30.655 square meter Blood Avoidance/Restrictionsnon e(1) Previous Transfusion Reactionnot applicable(1) Patient Belongingsremains with patient Patient Belongings Remaining with Patientclothing Home Meds have been Reviewed and Verified with Patient/Familyyes Info: Gravida1 Term Deliveries0 Deliveries0 Abortions0 Living Children0 Patient stated [id number] Calculation of EGA based on patient stated [...] Note - OB v4 03-Apr-2022 12:43 Normal [facility] URIC ACIDon 04-07-2022 Urate [Mass/Vol] 4.8 mg/dL Normal 2.3 - 6.7 [facility] Comment on above: Result Comment: Jordyn puncture immediately after or during the administration of Metamizole may lead to falsely low results. Testing should be performed immediately prior to Metamizole dosing. Performed By: #### U LEANN ####[place] [address] Uric Acid, Serumon Urate [Mass/Vol] 4.8 mg/dL 2.3 - 6.7 [facility] nurys [place] [employer] Work Phone: Comment on above: Venipuncture immedia [...] instruction; written material Cultural Considerationsnone Developmental Considerationsnone Jew Considerationsnone Learning Assessment (Other Learner): Other learner availableno Depression/Suicide: Depression Screen: During the past month, have you often been bothered by feeling down, depressed or hopelessno During the past month, have you often had little interest or pleasure in doing thingsno Have you had any thoughts of harming anyone elseno [place] Suicide: Risk Screen Not Applicable/Able to Answerable to be screened In the Past Month: Have you wished you were or could go to sleep and not wake upno In the Past Month: Have you had any actual thoughts of killing yourselfno Lifetime: Have you ever done, started to do, or prepared to do anything to end your lifeno [place] Suicide Risknegative Family Violence: Abuse Screen: Are [...] Updated: 03-Apr-2022 12:42 by Lalitha Shultz (RN) [facility] GROUP B STREP SCREENon 03-23 GROUP B STREP SCREEN PATIENT: JASMIN CRAIN LOCATION: [address]#: [id number] : 89 AGE: SEX: F ORDERED BY: ASTER FRANK SOURCE: VAGINAL COLLECTED: 03/23/22 09:12 ANTIBIOTICS AT JOSE.: RECEIVED : 03/23/22 16:39 SITE: VAGINAL R E S U L T S GROUP B STREP SCREEN FINAL 03/25/22 15:37 ISOLATE1 : Group B streptococcus ISOLATED Normal [facility] Comment on above: Performed By: #### G BSCR #### [facility] [place] [address] [place] [address] Laboratory - Microbiology an d Antimicrobial susceptibilityon 03-23-2022 Bacteria identified Aer cx Nom (Genital specimen) Abnormal [facility] [address] Work Phone: GLUCOSE RAVIN,3HR PREGNANCYon 01-30-2022 Glucose [Mass/Vol] 113 mg/dL Normal <155 [facility] Comment on above: Performed By: #### G TTP3 #### [address] [address] Glucose [Mass/Vol] 99 mg/dL Normal <140 [facility] Comment on above: Performed By: #### G TTP3 #### [address] [address] Glucose [Mass/Vol] 76 mg/dL Normal <95 [facility] Comment on above: Performed By: #### G TTP3 #### [address] [address] Glucose [Mass/Vol] 127 mg/dL Normal <180 [facility] Comment on above: Performed By: #### G TTP3 #### [address] [address] INTERPRETATION SEE BELOW Normal [facility] Comment on above: Result Comment: Diag nostics with glucose loading dose of 100 g. Reference values from [employer]. Diabetes Care 2015;38(Suppl.1):S8-S16. Performed By: #### G TTP3 #### [address] [address] No Panel Informationon 01-30 SEE BELOW [facility] [employer] Work Phone: Comment on above: Diagnostics with glu cose loading dose of 100 g. Reference values from [employer]. Diabetes Care 2015;38(Suppl.1):S8-S16. 99 mg/dL <140 [facility] [employer] Work Phone: 113 mg/dL <155 [facility] [employer] Work Phone: 127 mg/dL <180 [facility] [employer] Work Phone: 76 mg/dL <95 [facility] [employer] Work Phone: CBCon 01-26-2022 Erythrocyte distribution width (RBC) [Ratio] 13.7 % Normal 11.5 - 14.5 [facility] Comment on above: Performed By: #### C BC #### [address] [address] Hematocrit (Bld) [Volume fraction] 33.2 % Low 36.0 - 46.0 [facility] Comment on above: Performed By: #### C BC #### [address] [address] Hemoglobin (Bld) [Mass/Vol] 11.1 g/dL Low 12.0 - 16.0 [facility] Comment on above: Performed By: #### C BC #### [address] [address] MCHC (RBC) [Mass/Vol] 33.4 g/dL Normal 32.0 - 36.0 [facility] Comment on above: Performed By: #### C BC #### [address] [address] MCV (RBC) [Entitic vol] 93 fL Normal 80 - 100 [facility] Comment on above: Performed By: #### C BC #### [address] [address] Platelets (Bld) [#/Vol] 325 10*3/uL Normal 150 - 450 [facility] Comment on above: Performed By: #### C BC #### [address] [address] RBC 3.59 x10E12/L Low 4.00 - 5.20 [facility] Comment on above: Performed By: #### C BC #### [address] [address] WBC (Bld) [#/Vol] 14.4 10*3/uL High 4.4 - 11.3 [facility] Comment on above: Performed By: #### C BC #### [address] [address] GLUCOSE,1 HR SCREEN, PREGon 01-26-2022 Glucose [Mass/Vol] 137 mg/dL Abnormal <135 [facility] Comment on above: Result Comment: Diag nostic value with glucose loading dose of 50 g. Reference values from [employer]. Diabetes Care 2015;38(Suppl.1):S8-S16 Performed By: #### G LUS1 #### [facility] [address] [place] [address] Glucose, 1 Hour Screen, Preg nancyon 01-26-2022 Glucose 1 Hr post 50 g glucose PO [Mass/Vol] 137 mg/dL Abnormal <135 [employer] Work Phone: Comment on above: Diagnostic value wit h glucose loading dose of 50 g. Reference values from [employer]. Diabetes Care 2015;38(Suppl.1):S8-S16 Laboratory - Hematology and Cell countson 01-26-2022 Erythrocyte distribution width (RBC) [Ratio] 13.7 % See Below [employer] Work Phone: Comment on above: Reference Range: 11. 5 - 14.5 Hematocrit (Bld) [Volume fraction] 33.2 % below low threshold See Below [employer] Work Phone: Comment on above: Reference Range: 36. 0 - 46.0 Hemoglobin (Bld) [Mass/Vol] 11.1 g/dL below low threshold See Below [employer] Work Phone: Comment on above: Reference Range: 12. 0 - 16.0 MCHC (RBC) [Mass/Vol] 33.4 g/dL See Below [facility] Work Phone: Comment on above: Reference Range: 32. 0 - 36.0 MCV (RBC) [Entitic vol] 93 fL 80 - 100 [employer] Work Phone: [phone] Platelets (Bld) [#/Vol] 325 10*3/uL 150 - 450 [employer] Work Phone: RBC (Bld) [#/Vol] 3.59 {x10E12/L} below low threshold See Below [employer] Work Phone: Comment on above: Reference Range: 4.0 0 - 5.20 WBC (Bld) [#/Vol] 14.4 10*3/uL above high threshold 4.4 - 11.3 [facility] tessie [place] [employer] Work Phone: Risk Screen - OB Triageon [...] Learning Preferencesverbal instruction Cultural Considerationsnone Developmental Considerationsnone Jew Considerationsnone Other Learnersmother Learning Assessment (Other Learner): Other learner availableno Learning Assessment (Other Learner) CommentsPt's mother went for a snack Depression/Suicide: Depression Screen: During the past month, have you often been bothered by feeling down, depressed or hopelessno During the past month, have you often had little interest or pleasure in doing thingsno Have you had any thoughts of harming anyone elseno [place] Suicide: Risk Screen Not Applicable/Able to Answerable to be screened In the Past Month: Have you wished you were or could go to sleep and not wake upno In the Past Month: Have you had any actual thoughts of killing yourselfno Lifetime: Have you ever done, started to do, or prepared to do anything to end your lifeno [place] Suicide Risknegative Family Violence: Abuse Screen: Are [...] Updated: 15-Jan-2022 13:00 by Padmini Sarkar (JONATHON) [facility] Triage Note - OB v4on 2021 Triage Note - OB v4 Triage: General Info: Time of Arrival on [id number] 10:30 Patient arrived viaambulatory [place] Acuity Level5 Chief ComplaintPressure Home Meds have been Reviewed and Verified with Patient/Familyyes Info: Gravida1 Term Deliveries0 Deliveries0 Abortions0 Living Children0 Patient stated [id number] Calculation of EGA based on patient stated [...] 15-Jan-2022 12:56 by Padmini Sarkar (RN) Normal [facility] URINALYSISon 01-15-2022 Appearance (U) CLEAR Normal CLEAR [facility] Comment on above: Performed By: #### C OINP #### [place] [address] Bilirubin Ql (U) Negative Normal NEGATIVE [facility] Comment on above: Performed By: #### C OINP #### [place] [address] Color (U) Straw Normal STRAW,YELLOW [facility] Comment on above: Performed By: #### C OINP #### [place] [id number] Glucose Ql (U) Negative Normal NEGATIVE [facility] Comment on above: Performed By: #### C OINP #### [address] [address] Hemoglobin Ql (U) Negative Normal NEGATIVE [facility] Comment on above: Performed By: #### C OINP #### [address] [address] Ketones Ql (U) Negative Normal NEGATIVE [facility] Comment on above: Performed By: #### C OINP #### [place] [id number] Leukocyte esterase Test strip Ql (U) Negative Normal NEGATIVE [facility] Comment on above: Performed By: #### C OINP #### [address] [address] Nitrite Ql (U) Negative Normal NEGATIVE [facility] Comment on above: Performed By: #### C OINP #### [place] [id number] pH (U) 7.0 [pH] Normal 5.0 - 8.0 [facility] Comment on above: Performed By: #### C OINP #### [address] [address] Protein Ql (U) Negative Normal NEGATIVE [facility] Comment on above: Performed By: #### C OINP #### [address] [address] Specific gravity (U) [Rel density] 1.003 Low 1.005 - 1.035 [facility] Comment on above: Performed By: #### C OINP #### [address] [address] Urobilinogen (U) [Mass/Vol] mg/dL Normal 0.0 - 1.9 [facility] Comment on above: Performed By: #### C OINP #### [address] [address] Urinalysison 01-15-2022 Color (U) Straw See Below [employer] Work Phone: Comment on above: Reference Range: STR AW,YELLOW Glucose Ql (U) Negative NEGATIVE [facility] [employer] Work Phone: Ketones Ql (U) Negative NEGATIVE [facility] [employer] Work Phone: Leukocyte esterase Test strip Ql (U) Negative NEGATIVE [facility] [employer] Work Phone: pH (U) 7.0 [pH] 5.0 - 8.0 [employer] Work Phone: Protein (U) [Mass/Vol] Negative NEGATIVE [employer] Work Phone: RBC (U) [#/Vol] Negative NEGATIVE [employer] [facility] [employer] Work Phone: Specific gravity (U) [Rel density] 1.003 1 below low threshold See Below [employer] Work Phone: Comment on above: Reference Range: 1.0 05 - 1.035 Urinalysis Negative NEGATIVE [facility] [employer] Work Phone: Urinalysis <2.0 0.0 - 1.9 [facility] [employer] [facility] Work Phone: Urinalysis CLEAR CLEAR [place] [address] [employer] Work Phone: No Panel Informationon 11-24 Please click on the link to view the study images Normal [facility] [employer] Work Phone: Normal [facility] [employer] Work Phone: Laboratory - Chemistry and C hemistry - challengeon 11-10-2021 Second trimester quad maternal screen panel SEE BELOW [facility] [employer] Work Phone: Comment on above: Genetics test res ults are available electronically in the [facility] under Diagnostic Testing-> Genetics.Results will be sent on a separate report. Cult, Urineon 09-22-2021 Bacteria identified Cx Nom (U) [facility] [employer] [facility] [employer] [facility] Work Phone: GC + Chlamydia By Amplified Detectionon 09-22-2021 C. trachomatis rRNA SHEN+probe Ql (Unsp spec) Negative Negative [place] [address] [employer] Work Phone: Comment on above: The APTIMA Combo 2 a ssay is FDA-approved for Chlamydia trachomatis and Neisseria gonorrhoeae testing on female endocervical and vaginal swabs, ThinPrep liquid pap samples, male urine samples and urethral swabs. Performance characteristics for Chlamydia trachomatis and Neisseria gonorrhoeae testing on specific ewl-JJH-itxorgvs sample types (female urine samples) have been validated by [facility]. This laboratory is certified by CLIA to perform high complexity testing. Samples from all other sites are not validated for this method. N. gonorrhoeae rRNA SHEN+probe Ql (Unsp spec) Negative Negative [facility] [employer] Work Phone: Comment on above: SOURCE: Urine The AP ALBAN Combo 2 assay is FDA-approved for Chlamydia trachomatis and Neisseria gonorrhoeae testing on female endocervical and vaginal swabs, ThinPrep liquid pap samples, male urine samples and urethral swabs. Performance characteristics for Chlamydia trachomatis and Neisseria gonorrhoeae testing on specific ujo-EKB-espneeaz sample types (female urine samples) have been validated by [facility]. This laboratory is certified by CLIA to perform high complexity testing. Samples from all other sites are not validated for this method. HIV 1/2 ANTIGEN/ANTIBODY SCR EEN WITH REFLEX TO CONFIRMATIONon 09-22-2021 HIV 1+2 Ab Qn (S) Non-Reactive See Below [facility] [employer] Work Phone: Comment on above: SOURCE: Reference Ra nge: NONREACTIVE HIV Ag/Ab screen is performed using the Siemens Newdea HIV Ag/Ab Combo assay which detects the presence of HIV p24 antigen as well as antibodies to HIV-1 (Group M and O) and HIV-2..No laboratory evidence of HIV infection. If acute HIV infection is suspected, consider testing for HIV RNA by PCR (viral load). Hepatitis B Surface Antigeno n 09-22-2021 Hepatitis B Surface Antigen Non-Reactive See Below [facility] [employer] Work Phone: Comment on above: SOURCE: Reference [...] bankon ABO group Nom (Bld) O Women [facility] [employer] Work Phone: Blood group antibody screen Ql Negative [facility] [employer] Work Phone: Rh immune globulin screen (Bld) [Interp] Positive [facility] Work Phone: ABO group Nom (Bld) Canceled [place] [address] [employer] Work Phone: Blood group antibody screen Ql Canceled [facility] HospitalFrugotonAndre [place] [address] [address] Work Phone: Rh immune globulin screen (Bld) [Interp] Canceled [place] [address] [address] Work Phone: Laboratory - Cytologyon 09-05 Cytology report Cyto stain.thin prep Doc (Cvx/Vag) [place] [address] [address] Work Phone: Laboratory - Hematology and Cell countson 09-22-2021 Erythrocyte distribution width (RBC) [Ratio] 13.6 % See Below [place] [address] [address] Work Phone: Comment on above: Reference Range: 11. 5 - 14.5 Hematocrit (Bld) [Volume fraction] 37.8 % See Below [place] [address] [address] Work Phone: Comment on above: Reference Range: 36. 0 - 46.0 Hemoglobin (Bld) [Mass/Vol] 12.7 g/dL See Below [place] [address] [address] Work Phone: Comment on above: Reference Range: 12. 0 - 16.0 MCHC (RBC) [Mass/Vol] 33.6 g/dL See Below [place] [address] [employer] Work Phone: Comment on above: Reference Range: 32. 0 - 36.0 MCV (RBC) [Entitic vol] 89 fL 80 - 100 [place] [address] [employer] Work Phone: [phone] Platelets (Bld) [#/Vol] 347 10*3/uL 150 - 450 [facility] [address] [employer] Work Phone: [phone] RBC (Bld) [#/Vol] 4.22 {x10E12/L} See Below [facility] [address] [employer] Work Phone: Comment on above: Reference Range: 4.0 0 - 5.20 WBC (Bld) [#/Vol] 9.2 10*3/uL 4.4 - 11.3 [facility] [address] [address] Work Phone: No Panel Informationon 09-22 NONE [facility] Work Phone: Rubella IgG Antibodyon 09-22 Rubella virus IgG IA Ql Positive [facility] Work Phone: Comment on above: INTERPRETATIVE [...] IgG+IgM IA Ql (S) Non-Reactive See Below [address] Work Phone: Comment on above: Reference Range: NON REACTIVENo significant level of Treponema pallidum antibody detected. Repeat testing in 2 to 4 weeks may be considered if early infection or incubating syphilis infection is suspected. 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 HAS BREAST TENDERNESS. History of Present Doepwyy17-macr-mly G1, P0 presents for secondary menorrhea. Patient [...] No Reported Medications Vitals Vital Signs Recorded: [id number] 11:35AM Gnpnsgzozxl91.8 F Ksrsqovr639 Xgjfnkbvx01 Height5 ft Zxexdc349 lb 12.80 oz BMI Qesdbhdbzs91.52 kg/m2 BSA Calculated1.58 [id number] Physical Exam General: None acute distress Eye: Intraocular movements are intact HEENT: Normocephalic Cardiovascular: Regular rate rhythm Respiratory: Lungs are clear to auscultation, respirations are nonlabored Gastrointestinal: Soft nontender nondistended normal bowel sounds Musculoskeletal: Normal range of motion Skin: Warm and dry Neurologic: Alert and oriented x3 Psychiatric: Cooperative appropriate mood and affect. Results/Data IO HCG, Urine [id number] 11:31Aster Leonard MEDLINE LOT: [id number] EXP: 11/04/2022 Test NameResultFlagReference IO Urine hCGPositive Procedure Transvaginal ultrasound shows a single live fetus with positive cardiac motion. Iron Post-rump length measures 0.53 cm consistent with 6 [...] could be considered if persistent clinical concern. [employer] Workstation ID: [id number] [employer] EXAMINATION: US SOFT TISSUE NECK OR HEAD. [...] additional prominent regional cervical lymph nodes identified. Mapplas [facility] Joellen Matson, DO - 05/05/2021 EXAMINATION: US [...] could be considered if persistent clinical concern. [employer] Workstation ID: [id number] [employer] US SOFT TISSUE NECK OR HEADO rdered By: Joellen Matson on 05-05-2021 [facility] Work Phone: US SOFT TISSUE NECK OR [...] on SatMay 05, 2021 7:53:41 PM EDT [facility] Comment on above: Order Comment: Injur y/Trauma or Illness?:Illness/Other How long have you had these symptoms (acute/chronic)?:Acute Reason for exam?:rt cervical lymphadenopathy History of cancer?:u Surgeries, chemotherapy, or radiation?:u Type of Exam?:Initial Additional signs and symptoms?:none Radiology Study observation (narrative) [facility] HIV 1/2 SCREEN (4TH GENERATI ON)on 04-25-2021 HIV 1+2 Ab+HIV1 p24 Ag IA Ql Negative Negative [facility] Interpretation and review of laboratory results Normal [facility] This assay screens f or the presence of HIV-1, HIV-2 antibodies and for the presence of HIV-1 antigen. Test performed using [employer] ANGELICA immunoassay system [facility] Comprehensive metabolic 2000 panelon 04-24-2021 Albumin [Mass/Vol] 4.0 g/dL 3.2 - 5.2 g/dL [facility] ALP [Catalytic activity/Vol] 81 U/L 40 - 140 U/L [facility] ALT [Catalytic activity/Vol] 21 U/L 14 - 65 U/L [facility] Anion gap [Moles/Vol] 10 mmol/L 10 - 2 0 mmol/L [facility] AST [Catalytic activity/Vol] 16 U/L 0 - 45 U/L [facility] Bilirubin [Mass/Vol] 1.5 mg/dL High 0.0 - 1 .3 mg/dL [facility] Calcium [Mass/Vol] 9.2 mg/dL 8.4 - 10. 2 mg/dL [facility] Chloride [Moles/Vol] 107 mmol/L 98 - 10 8 mmol/L [facility] Creatinine [Mass/Vol] 0.69 mg/dL 0.40 - 1.10 [facility] GFR/1.73 sq M.predicted CKD-EPI (S/P/Bld) [Vol rate/Area] 122 >=60 mL/min/1.73 m2 [facility] Glucose [Mass/Vol] 94 mg/dL 65 - 99 mg/dL [facility] HCO3 [Moles/Vol] 26 mmol/L 21 - 32 mmol/L [facility] Interpretation and review of laboratory results Abnormal [facility] Potassium [Moles/Vol] 3.9 mmol/L 3.5 - 5.1 mmol/L [facility] Protein [Mass/Vol] 7.7 g/dL 6.0 - 8.0 g/dL [facility] Sodium [Moles/Vol] 139 mmol/L 135 - 145 mmol/L [facility] Urea nitrogen [Mass/Vol] 12 mg/dL 8 - 25 mg/dL [facility] Urea nitrogen/Creatinine [Mass ratio] 17.4 mg/mg [facility] The eGFR should be u sed for monitoring renal function only and not for medication dosing. [facility] EBV Antibody Profile (IGG/M, EBNA)on 04-24-2021 EBV capsid IgG Ql (S) Positive Abnormal Negative [facility] EBV capsid IgM Ql (S) Negative Negative [facility] EBV nuclear Ab Ql (S) Positive Abnormal Negative [facility] Interpretation and review of laboratory results Abnormal [facility] Assay performed eliazar whitehead Transphormrin CLIA methodology. [facility] No Panel Informationon 04-24 [facility] TSH DL <= 0.005 mIU/L Qnon 1 Interpretation and review of laboratory results Normal [facility] TSH Qn 1.27 m[IU]/L [facility] Vital Signs Date Time Vital Sign Value Performing Clinician Facility 03-17-2025 09:23-0400 Body height 160.02 cm DEFINED NOT [facility] 03-17-2025 09:23-0400 Body mass index (BMI) [Ratio] 29.8 kg/m2 DEFINED NOT [facility] 03-17-2025 09:23-0400 Body weight 76.34 kg DEFINED NOT [facility] 03-17-2025 09:23-0400 Diastolic blood pressure 89 mm[Hg] DEFINED NOT [facility] 03-17-2025 09:23-0400 Systolic blood pressure 135 mm[Hg] DEFINED NOT [facility] 03-10-2025 14:27-0400 Body height 160.02 cm DEFINED [facility] 03-10-2025 14:23-0400 Body mass index (BMI) [Ratio] 29.5 kg/m2 DEFINED NOT [facility] 03-10-2025 14:23-0400 Body weight 75.77 kg DEFINED [facility] 03-10-2025 14:23-0400 Diastolic blood pressure 85 mm[Hg] DEFINED NOT [facility] 03-10-2025 14:23-0400 Systolic blood pressure 129 mm[Hg] DEFINED [facility] 03-03-2025 14:51-0400 Body height 160.02 cm DEFINED NOT [facility] 03-03-2025 14:51-0400 Body mass index (BMI) [Ratio] 29.4 kg/m2 DEFINED NOT [facility] 03-03-2025 14:51-0400 Body weight 75.38 kg DEFINED [facility] 03-03-2025 14:51-0400 Diastolic blood pressure 87 mm[Hg] DEFINED NOT [facility] 03-03-2025 14:51-0400 Systolic blood pressure 131 mm[Hg] DEFINED NOT [facility] 02-26-2025 15:25-0400 Body height 160.02 cm DEFINED NOT [facility] 02-26-2025 15:25-0400 Body mass index (BMI) [Ratio] 29.5 kg/m2 DEFINED NOT [facility] 02-26-2025 15:25-0400 Body weight 75.77 kg DEFINED [facility] 02-26-2025 15:25-0400 Diastolic blood pressure 87 mm[Hg] DEFINED NOT [facility] 02-26-2025 15:25-0400 Systolic blood pressure 132 mm[Hg] DEFINED NOT [facility] 02-15-2025 15:37-0400 Body height 160.02 cm DEFINED NOT [facility] 02-15-2025 15:34-0400 Body mass index (BMI) [Ratio] 29.4 kg/m2 DEFINED NOT [facility] 02-15-2025 15:34-0400 Body weight 75.38 kg DEFINED NOT [facility] 02-15-2025 15:34-0400 Diastolic blood pressure 78 mm[Hg] DEFINED NOT [facility] 02-15-2025 15:34-0400 Systolic blood pressure 133 mm[Hg] DEFINED NOT [facility] 02-01-2025 14:55-0400 Body height 160.02 cm DEFINED NOT [facility] 02-01-2025 14:55-0400 Body mass index (BMI) [Ratio] 29 kg/m2 DEFINED NOT [facility] 02-01-2025 14:55-0400 Body weight 74.44 kg DEFINED NOT [facility] 02-01-2025 14:55-0400 Diastolic blood pressure 85 mm[Hg] DEFINED NOT [facility] 02-01-2025 14:55-0400 Systolic blood pressure 121 mm[Hg] DEFINED NOT [facility] 01-25-2025 09:30-0400 Body height 160.02 cm DEFINED NOT [facility] 01-25-2025 09:30-0400 Body mass index (BMI) [Ratio] 28.5 kg/m2 DEFINED NOT [facility] 01-25-2025 09:30-0400 Body weight 73.25 kg DEFINED NOT [facility] 01-25-2025 09:30-0400 Diastolic blood pressure 78 mm[Hg] DEFINED NOT [facility] 01-25-2025 09:30-0400 Systolic blood pressure 123 mm[Hg] DEFINED NOT [facility] 01-04-2025 14:10-0400 Body height 160.02 cm DEFINED NOT [facility] 01-04-2025 14:10-0400 Body mass index (BMI) [Ratio] 28.4 kg/m2 DEFINED NOT [facility] 01-04-2025 14:10-0400 Body weight 72.8 kg DEFINED [facility] 01-04-2025 14:10-0400 Diastolic blood pressure 68 mm[Hg] DEFINED NOT [facility] 01-04-2025 14:10-0400 Systolic blood pressure 112 mm[Hg] DEFINED NOT [facility] 12-23-2024 13:00-0400 Body height 160.02 cm DEFINED NOT [facility] 12-23-2024 12:57-0400 Body mass index (BMI) [Ratio] 27.8 kg/m2 DEFINED NOT [facility] 12-23-2024 12:57-0400 Body weight 71.32 kg DEFINED NOT [facility] 12-23-2024 12:57-0400 Diastolic blood pressure 74 mm[Hg] DEFINED NOT [facility] 12-23-2024 12:57-0400 Systolic blood pressure 118 mm[Hg] DEFINED [facility] 12-02-2024 15:37-0400 Body height 160.02 cm DEFINED NOT [facility] 12-02-2024 15:37-0400 Body mass index (BMI) [Ratio] 27.3 kg/m2 DEFINED NOT [facility] 12-02-2024 15:37-0400 Body weight 70.08 kg DEFINED [facility] 12-02-2024 15:37-0400 Diastolic blood pressure 72 mm[Hg] DEFINED NOT [facility] 12-02-2024 15:37-0400 Systolic blood pressure 118 mm[Hg] DEFINED NOT [facility] 11-06-2024 13:20-0400 Body height 160.02 cm DEFINED NOT [facility] 11-06-2024 13:19-0400 Body mass index (BMI) [Ratio] 26.5 kg/m2 DEFINED NOT [facility] 11-06-2024 13:19-0400 Body weight 68.03 kg DEFINED NOT [facility] 11-06-2024 13:19-0400 Diastolic blood pressure 73 mm[Hg] DEFINED NOT [facility] 11-06-2024 13:19-0400 Systolic blood pressure 120 mm[Hg] DEFINED NOT [facility] 10-08-2024 14:53-0400 Body mass index (BMI) [Ratio] 25.9 kg/m2 DEFINED NOT [facility] 10-08-2024 14:53-0400 Body weight 66.39 kg DEFINED NOT [facility] 10-08-2024 14:53-0400 Diastolic blood pressure 74 mm[Hg] DEFINED NOT [facility] 10-08-2024 14:53-0400 Systolic blood pressure 111 mm[Hg] DEFINED NOT [facility] 09-11-2024 10:02-0500 Body height 160.02 cm DEFINED NOT [facility] 09-11-2024 10:02-0500 Body mass index (BMI) [Ratio] 25.4 kg/m2 DEFINED NOT [facility] 09-11-2024 10:02-0500 Body weight 65.03 kg DEFINED NOT [facility] 09-11-2024 10:02-0500 Diastolic blood pressure 78 mm[Hg] DEFINED NOT [facility] 09-11-2024 10:02-0500 Systolic blood pressure 119 mm[Hg] DEFINED NOT [facility] 08-14-2024 14:17-0500 Body weight 64.01 kg DEFINED NOT [facility] 08-14-2024 14:17-0500 Diastolic blood pressure 74 mm[Hg] DEFINED NOT [facility] 08-14-2024 14:17-0500 Systolic blood pressure 126 mm[Hg] DEFINED NOT [facility] 07-29-2024 17:47-0500 Body height 152.4 cm Padmini Sosa APRN-RESIDENTIAL MORTGAGE MANAGER Work Phone: [phone](053)380-5320[address] [place] [address] 07-29-2024 17:47-0500 Body mass index (BMI) [Ratio] 23.44 kg/m2 Padmini Sosa APRN-RESIDENTIAL MORTGAGE MANAGER Work Phone: [phone] [place] [address] 07-29-2024 17:47-0500 Body temperature 99.39 [degF] Padmini Sosa APRN-RESIDENTIAL MORTGAGE MANAGER Work Phone: [phone])473-427665 [place] [address] 07-29-2024 17:47-0500 Body weight 54.43 kg Padmini Sosa JUNIOR DATA ANALYST-RESIDENTIAL MORTGAGE MANAGER Work Phone: 0(712)716-681865 [place] [address] 07-29-2024 17:47-0500 Diastolic blood pressure 71 mm[Hg] Padmini Sosa APRN-RESIDENTIAL MORTGAGE MANAGER Work Phone: [facility] 07-29-2024 17:47-0500 Heart rate 117 /min Padmini Sosa JUNIOR DATA ANALYST-RESIDENTIAL MORTGAGE MANAGER Work Phone: [facility] 07-29-2024 17:47-0500 Respiratory rate 16 /min Padmini Sosa JUNIOR DATA ANALYST-RESIDENTIAL MORTGAGE MANAGER Work Phone: [facility] 07-29-2024 17:47-0500 SaO2% (BldA) [Mass fraction] 97 % Padmini Sosa JUNIOR DATA ANALYST-RESIDENTIAL MORTGAGE MANAGER Work Phone: [facility] 07-29-2024 17:47-0500 Systolic blood pressure 100 mm[Hg] Padmini Sosa JUNIOR DATA ANALYST-RESIDENTIAL MORTGAGE MANAGER Work Phone: [facility] 10-10-2022 17:17-0400 Blood Pressure Location [facility] 10-10-2022 17:17-0400 Body temperature 98.24 [degF] [facility] 10-10-2022 17:17-0400 Diastolic blood pressure 66 mm[Hg] [facility] 10-10-2022 17:17-0400 Heart rate 97 /min [facility] 10-10-2022 17:17-0400 SaO2% (BldA) [Mass fraction] 99 % [facility] 10-10-2022 17:17-0400 Systolic blood pressure 100 mm[Hg] [facility] 09-14-2022 12:32-0500 Diastolic blood pressure 73 mm[Hg] No Pcp Required [facility] 09-14-2022 12:32-0500 Heart rate 89 /min No Pcp Required [facility] 09-14-2022 12:32-0500 Respiratory rate 18 /min No Pcp Required [facility] 09-14-2022 12:32-0500 SaO2% (BldA) [Mass fraction] 98 % No Pcp Required [facility] 09-14-2022 12:32-0500 Systolic blood pressure 102 mm[Hg] No Pcp Required [facility] 09-14-2022 10:48-0500 Body height 152.4 cm No Pcp Required [facility] 09-14-2022 10:48-0500 Body temperature 96.98 [degF] No Pcp Required [facility] 09-14-2022 10:48-0500 Body weight 52.3 kg No Pcp Required [facility] 06-26-2022 11:29-0500 Blood Pressure Location [employer] [facility] 06-26-2022 11:29-0500 Body temperature 98.24 [degF] Monika OrCodych [facility] 06-26-2022 11:29-0500 Diastolic blood pressure 74 mm[Hg] [employer] [facility] 06-26-2022 11:29-0500 Heart rate 94 /min Molecular TemplateszePosto7 [facility] 06-26-2022 11:29-0500 SaO2% (BldA) [Mass fraction] 99 % Monika Vetiary [facility] 06-26-2022 11:29-0500 Systolic blood pressure 120 mm[Hg] Monika Orzech [facility] 05-18-2022 14:10-0500 Body height 154.94 cm Aster Ting [place] Cerebrexselect [facility] southCorpsolvmoundview [facility] [address] Work Phone: 05-18-2022 14:10-0500 Body mass index (BMI) [Ratio] 23.67 kg/m2 Aster A [place] Cerebrexcorewell health butterworth hospitalKauai [address] Work Phone: 05-18-2022 14:10-0500 Body surface area Derived from formula 1.55 m2 Aster Ting [place] Cerebrexcorewell health butterworth hospitalKauai [address] Work Phone: 05-18-2022 14:10-0500 Body weight 56.81 kg Aster A [place] [address] Work Phone: 05-18-2022 14:10-0500 Diastolic blood pressure 62 mm[Hg] Aster A Nem[place] [address] Work Phone: 05-18-2022 14:10-0500 Systolic blood pressure 114 mm[Hg] Aster A [place] [address] Work Phone: 04-13-2022 09:06-0400 Body height 154.94 cm Atser A Otoniel Work Phone: [address] Work Phone: 04-13-2022 09:06-0400 Body mass index (BMI) [Ratio] 27.03 kg/m2 Aster A Nem[place] Work Phone: [address] Work Phone: 04-13-2022 09:06-0400 Body surface area Derived from formula 1.64 m2 Aster A [place]aha Work Phone: [address] Work Phone: 04-13-2022 09:06-0400 Body weight 64.9 kg Aster A Nemaha Work Phone: [address] Work Phone: 04-13-2022 09:06-0400 Diastolic blood pressure 84 mm[Hg] Aster A Nemaha Work Phone: [address] Work Phone: 04-13-2022 09:06-0400 Systolic blood pressure 122 mm[Hg] Aster A Nemaha Work Phone: [address] Work Phone: 04-06-2022 09:25-0400 Body height 154.94 cm Aster A Nemaha Work Phone: [place] [address] [address] Work Phone: 04-06-2022 09:25-0400 Body mass index (BMI) [Ratio] 29.33 kg/m2 Aster A Otoniel Work Phone: [place] [address] [address] Work Phone: 04-06-2022 09:25-0400 Body surface area Derived from formula 1.7 m2 Aster A Nemaha Work Phone: [place] [address] [address] Work Phone: 04-06-2022 09:25-0400 Body weight 70.42 kg Aster A Nemaha Work Phone: [place] [address] [address] Work Phone: 04-06-2022 09:25-0400 Diastolic blood pressure 82 mm[Hg] Aster A Otoniel Work Phone: [address] Work Phone: 04-06-2022 09:25-0400 Systolic blood pressure 130 mm[Hg] Aster A Nemaha Work Phone: [address] Work Phone: 03-30-2022 08:53-0400 Body height 154.94 cm Aster A Otoniel Work Phone: [address] Work Phone: 03-30-2022 08:53-0400 Body mass index (BMI) [Ratio] 29.12 kg/m2 Aster A Nemaha Work Phone: [place] [address] [address] Work Phone: 03-30-2022 08:53-0400 Body surface area Derived from formula 1.69 m2 Aster A Nemaha Work Phone: [place] [address] [address] Work Phone: 03-30-2022 08:53-0400 Body weight 69.91 kg Aster A Nemaha Work Phone: [place] [address] [address] Work Phone: 03-30-2022 08:53-0400 Diastolic blood pressure 70 mm[Hg] Aster A Otoniel Work Phone: [place] [address] [address] Work Phone: 03-30-2022 08:53-0400 Systolic blood pressure 108 mm[Hg] Aster A Nemaha Work Phone: [place] [address] [address] Work Phone: 03-23-2022 09:13-0400 Body height 154.94 cm Aster A Nemaha Work Phone: [place] [address] [address] Work Phone: 03-23-2022 09:13-0400 Body mass index (BMI) [Ratio] 28.95 kg/m2 Aster A Otoniel Work Phone: [place] [address] [address] Work Phone: 03-23-2022 09:13-0400 Body surface area Derived from formula 1.69 m2 Aster A Nemaha Work Phone: [place] [address] [address] Work Phone: 03-23-2022 09:13-0400 Body weight 69.5 kg Aster A Nemaha Work Phone: [place] [address] [address] Work Phone: 03-23-2022 09:13-0400 Diastolic blood pressure 70 mm[Hg] Aster A Otoniel Work Phone: [place] [address] [address] Work Phone: 03-23-2022 09:13-0400 Systolic blood pressure 100 mm[Hg] Aster A Nemaha Work Phone: [place] [address] [address] Work Phone: 03-16-2022 08:18-0400 Body height 154.94 cm Aster A Nemaha Work Phone: [address] Work Phone: 03-16-2022 08:18-0400 Body mass index (BMI) [Ratio] 28.39 kg/m2 Aster A Nemaha Work Phone: [address] Work Phone: 03-16-2022 08:18-0400 Body surface area Derived from formula 1.67 m2 Aster A Nemaha Work Phone: [address] Work Phone: 03-16-2022 08:18-0400 Body weight 68.15 kg Aster A Nemaha Work Phone: [address] Work Phone: 03-16-2022 08:18-0400 Diastolic blood pressure 70 mm[Hg] Aster A Nemaha Work Phone: [address] Work Phone: 03-16-2022 08:18-0400 Systolic blood pressure 104 mm[Hg] Aster A Otoniel Work Phone: [address] Work Phone: 03-09-2022 13:19-0400 Body height 154.94 cm Aster A Nemaha Work Phone: [address] Work Phone: 03-09-2022 13:19-0400 Body mass index (BMI) [Ratio] 28.41 kg/m2 Aster A Nemaha Work Phone: [address] Work Phone: 03-09-2022 13:19-0400 Body surface area Derived from formula 1.67 m2 Aster A Nemaha Work Phone: [address] Work Phone: 03-09-2022 13:19-0400 Body weight 68.21 kg Aster A Nemaha Work Phone: [address] Work Phone: 03-09-2022 13:19-0400 Diastolic blood pressure 72 mm[Hg] Aster A Otoniel Work Phone: [address] Work Phone: 03-09-2022 13:19-0400 Systolic blood pressure 112 mm[Hg] Aster A Nemaha Work Phone: [address] Work Phone: 02-23-2022 08:29-0400 Body height 152.4 cm Aster A Nemaha Work Phone: [address] Work Phone: 02-23-2022 08:29-0400 Body mass index (BMI) [Ratio] 29.02 kg/m2 Aster A Nemaha Work Phone: [address] Work Phone: 02-23-2022 08:29-0400 Body surface area Derived from formula 1.65 m2 Aster A Otoniel Work Phone: [address] Work Phone: 02-23-2022 08:29-0400 Body weight 67.4 kg Aster A Nemaha Work Phone: [address] Work Phone: 02-23-2022 08:29-0400 Diastolic blood pressure 64 mm[Hg] Aster A Otoniel Work Phone: [address] Work Phone: 02-23-2022 08:29-0400 Systolic blood pressure 112 mm[Hg] Aster A Otoniel Work Phone: [address] Work Phone: 02-09-2022 09:19-0400 Body height 152.4 cm Aster A Otoniel Work Phone: [address] Work Phone: 02-09-2022 09:19-0400 Body mass index (BMI) [Ratio] 28.55 kg/m2 Aster A Nemaha Work Phone: [address] Work Phone: 02-09-2022 09:19-0400 Body surface area Derived from formula 1.63 m2 Aster A Nemaha Work Phone: [address] Work Phone: 02-09-2022 09:19-0400 Body weight 66.3 kg Aster A Otoniel Work Phone: [address] Work Phone: 02-09-2022 09:19-0400 Diastolic blood pressure 64 mm[Hg] Aster A Nemaha Work Phone: [address] Work Phone: 02-09-2022 09:19-0400 Systolic blood pressure 108 mm[Hg] Aster A Nemaha Work Phone: [address] Work Phone: 01-26-2022 10:50-0400 Body height 152.4 cm Aster A Nemaha Work Phone: [address] Work Phone: 01-26-2022 10:50-0400 Body mass index (BMI) [Ratio] 27.94 kg/m2 Aster A Otoniel Work Phone: [address] Work Phone: 01-26-2022 10:50-0400 Body surface area Derived from formula 1.62 m2 Aster A Otoniel Work Phone: [address] Work Phone: 01-26-2022 10:50-0400 Body weight 64.9 kg Aster A Nemaha Work Phone: [address] Work Phone: 01-26-2022 10:50-0400 Diastolic blood pressure 64 mm[Hg] Aster A Nemaha Work Phone: [address] Work Phone: 01-26-2022 10:50-0400 Systolic blood pressure 110 mm[Hg] Aster A Otoniel Work Phone: [address] Work Phone: 12-22-2021 14:24-0400 Body height 152.4 cm Aster A Nemaha Work Phone: [address] Work Phone: 12-22-2021 14:24-0400 Body mass index (BMI) [Ratio] 27.68 kg/m2 Aster A Nemaha Work Phone: [address] Work Phone: 12-22-2021 14:24-0400 Body surface area Derived from formula 1.61 m2 Aster A Otoniel Work Phone: [address] Work Phone: 12-22-2021 14:24-0400 Body weight 64.3 kg Aster A Nemaha Work Phone: [address] Work Phone: 12-22-2021 14:24-0400 Diastolic blood pressure 70 mm[Hg] Aster A Otoniel Work Phone: [address] Work Phone: 12-22-2021 14:24-0400 Systolic blood pressure 100 mm[Hg] Aster A Nemaha Work Phone: [place] [address] [address] Work Phone: 11-24-2021 14:49-0400 Body height 152.4 cm Aster A Otoniel Work Phone: [address] Work Phone: 11-24-2021 14:49-0400 Body mass index (BMI) [Ratio] 26.91 kg/m2 Aster A Otoniel Work Phone: [address] Work Phone: 11-24-2021 14:49-0400 Body surface area Derived from formula 1.59 m2 Aster A Nemaha Work Phone: [address] Work Phone: 11-24-2021 14:49-0400 Body weight 62.5 kg Aster A Nemaha Work Phone: [address] Work Phone: 11-24-2021 14:49-0400 Diastolic blood pressure 60 mm[Hg] Aster A Nemaha Work Phone: [address] Work Phone: 11-24-2021 14:49-0400 Systolic blood pressure 112 mm[Hg] Aster A Nemaha Work Phone: [place] [address] [address] Work Phone: 10-27-2021 15:58-0400 Body height 152.4 cm Aster A Otoniel Work Phone: [address] Work Phone: 10-27-2021 15:58-0400 Body mass index (BMI) [Ratio] 26.35 kg/m2 Aster A Otoniel Work Phone: [place] [address] [address] Work Phone: 10-27-2021 15:58-0400 Body surface area Derived from formula 1.58 m2 Aster A Nemaha Work Phone: [address] Work Phone: 10-27-2021 15:58-0400 Body weight 61.2 kg Aster A Nemaha Work Phone: [address] Work Phone: 10-27-2021 15:58-0400 Diastolic blood pressure 62 mm[Hg] Aster A Otoniel Work Phone: [address] Work Phone: 10-27-2021 15:58-0400 Systolic blood pressure 102 mm[Hg] Aster A Otoniel Work Phone: [address] Work Phone: 09-22-2021 10:26-0400 Body height 152.4 cm Aster A Nemaha Work Phone: [address] Work Phone: 09-22-2021 10:26-0400 Body mass index (BMI) [Ratio] 25.88 kg/m2 Aster A Nemaha Work Phone: [address] Work Phone: 09-22-2021 10:26-0400 Body surface area Derived from formula 1.57 m2 Aster A Otoniel Work Phone: [address] Work Phone: 09-22-2021 10:26-0400 Body weight 60.1 kg Aster A Otoniel Work Phone: [address] Work Phone: 09-22-2021 10:26-0400 Diastolic blood pressure 68 mm[Hg] Aster A Otoniel Work Phone: [address] Work Phone: 09-22-2021 10:26-0400 Systolic blood pressure 100 mm[Hg] Aster A Nemaha Work Phone: [address] Work Phone: 08-25-2021 11:35-0500 Body height 152.4 cm Aster A Otoniel Work Phone: [address] Work Phone: 08-25-2021 11:35-0500 Body mass index (BMI) [Ratio] 26.52 kg/m2 Aster A Otoniel Work Phone: [address] Work Phone: 08-25-2021 11:35-0500 Body surface area Derived from formula 1.58 m2 Aster A Otoniel Work Phone: [address] Work Phone: 08-25-2021 11:35-0500 Body temperature 97.8 [degF] Aster A Otoniel Work Phone: [address] Work Phone: 08-25-2021 11:35-0500 Body weight 61.6 kg Aster A Nemaha Work Phone: [address] Work Phone: 08-25-2021 11:35-0500 Diastolic blood pressure 60 mm[Hg] Aster A Nemaha Work Phone: [address] Work Phone: 08-25-2021 11:35-0500 Systolic blood pressure 110 mm[Hg] Aster A Nemaha Work Phone: [address] Work Phone: 04-24-2021 15:18-0400 Body height 152.4 cm Brea Sherman MD Work Phone: [facility] 04-24-2021 15:18-0400 Body mass index (BMI) [Ratio] 25 kg/m2 Brea Sherman MD Work Phone: [facility] 04-24-2021 15:18-0400 Body temperature 98.91 [degF] Brea Sherman MD Work Phone: [facility] 04-24-2021 15:18-0400 Body weight 58.06 kg Brea Sherman MD Work Phone: [facility] 04-24-2021 15:18-0400 Diastolic blood pressure 73 mm[Hg] Brea Sherman MD Work Phone: [facility] 04-24-2021 15:18-0400 Heart rate 78 /min Brea Sherman MD Work Phone: [facility] 04-24-2021 15:18-0400 Respiratory rate 16 /min Brea Sherman MD Work Phone: [facility] 04-24-2021 15:18-0400 SaO2% (BldA) [Mass fraction] 98 % Brea Sherman MD Work Phone: [facility] 04-24-2021 15:18-0400 Systolic blood pressure 112 mm[Hg] Brea Sherman MD Work Phone: [facility] Encounters Encounter Date Encounter Type Care Provider Facility Start: 03-17-2025 End: 03-17-2025 ambulatory Yao Brambila Facility:[facility] Start: 03-17-2025 End: 03-17-2025 Patient encounter procedure Yao Brambila [facility] Work Phone: Start: 03-10-2025 End: 03-10-2025 Patient encounter procedure Yao RODRIGES -[facility] Work Phone: Start: 03-10-2025 End: 03-10-2025 ambulatory DEFINED NOT -[facility] Start: 03-03-2025 End: 03-03-2025 Patient encounter procedure Andre WATTS -[facility] Work Phone: Start: 03-03-2025 End: 03-03-2025 ambulatory DEFINED NOT -[facility] Start: 02-26-2025 End: 02-26-2025 Patient encounter procedure Krystyna Ramos CN -[facility] Work Phone: Start: 02-26-2025 End: 02-26-2025 ambulatory DEFINED NOT -[facility] Start: 02-26-2025 End: 02-26-2025 ambulatory Krystyna Ramos Facility:[facility] Start: 02-15-2025 End: 02-15-[address] Thelma Taveras MD -[facility] Work Phone: Start: 02-15-2025 End: 02-15-2025 ambulatory DEFINED NOT -[facility] Start: 02-01-2025 End: 02-01-2025 Patient encounter procedure Yao Brambila [facility] -[facility] Work Phone: Start: 02-01-2025 End: 02-01-2025 ambulatory DEFINED NOT -[facility] Start: 01-29-2025 End: 01-29-2025 ambulatory [facility]ESM[facility] Start: 01-25-2025 End: 01-25-2025 Patient encounter procedure Yao Brambila [facility] Work Phone: Start: 01-25-2025 End: 01-25-2025 ambulatory DEFINED NOT -[facility] Start: 01-21-2025 End: 01-21-2025 ambulatory YAO Evangelista [facility] Start: 01-04-2025 End: 01-04-2025 Patient encounter procedure Andre WATTS -[facility] Work Phone: Start: 01-04-2025 End: 01-04-2025 ambulatory DEFINED NOT -[facility] Start: 12-23-2024 End: 12-23-[address] Thelma Taveras MD -[facility] Work Phone: Start: 12-23-2024 End: 12-23-2024 ambulatory DEFINED NOT [facility] Work Phone: Start: 12-23-2024 End: 12-23-2024 ambulatory Thelma Contrerasirma Facility:[facility] Start: 12-07-2024 ambulatory DEFINED NOT Facility:[facility] Start: 12-02-2024 End: 12-02-2024 ambulatory ANDRE S AUSTIN Facility:[facility] Start: 12-02-2024 End: 12-02-2024 Patient encounter procedure Andre Austin ARRT TECHNOLOGIST-C -[facility] Work Phone: Start: 12-02-2024 End: 12-02-2024 ambulatory DEFINED NOT [facility] Work Phone: Start: 11-25-2024 End: 11-25-2024 ambulatory DEFINED NOT [facility] Work Phone: Start: 11-25-2024 End: 11-25-[address] Gem Ross DO -[facility] Start: 11-25-2024 End: 11-25-2024 ambulatory Gem Ross Facility:[facility] Start: 11-17-2024 End: 11-17-2024 ambulatory [facility]ESM[facility] Start: 11-06-2024 End: 11-06-2024 Patient encounter procedure Yao Brambila CNM -[facility] Work Phone: Start: 11-06-2024 End: 11-06-2024 ambulatory DEFINED NOT Facility:[facility] Start: 10-20-2024 End: 10-20-2024 ambulatory [facility] Start: 10-08-2024 End: 10-08-[address] Gem Ross DO -[facility] Work Phone: Start: 10-08-2024 End: 10-08-2024 ambulatory Gem Ross Facility:[facility] Start: 09-11-2024 End: 09-11-2024 Patient encounter procedure Yao Brambila CNM -[facility] Work Phone: Start: 09-11-2024 End: 09-11-2024 ambulatory DEFINED NOT [facility] Work Phone: Start: 09-11-2024 End: 09-11-2024 ambulatory DEFINED NOT Facility:[facility] Start: 08-27-2024 End: 08-27-2024 Patient encounter procedure Yao Brambila CNM -Lab, [facility] Start: 08-27-2024 End: 08-27-2024 ambulatory DEFINED NOT Facility:[facility] Start: 08-14-2024 End: 08-14-[address] Thelma Taveras MD -Laboratory, Specimen Work Phone: Start: 08-14-2024 End: 08-14-[address] Thelma Taveras MD -[facility] Work Phone: Start: 08-14-2024 End: 08-14-2024 ambulatory Thelma Taveras Facility:[facility] [place] [facility] Start: 08-14-2024 End: 08-14-2024 ambulatory DEFINED NOT Facility:[facility] Start: 07-31-2024 Non-patient / Non-visit Olive Day RN -[facility] Work Phone: Start: 07-31-2024 ambulatory Olive Day Facility :[facility] [place] Start: 07-29-2024 End: 07-29-2024 Patient encounter procedure Padmini Sosa APRN-RESIDENTIAL MORTGAGE MANAGER Work Phone: [facility] Comment on above: Influenza A (Primary Dx); Viral URI with cough Start: 07-29-2024 End: 07-29-2024 ambulatory [facility] Start: 05-01-2023 End: 05-01-2023 Emergency department patient visit BREA [facility] Start: 03-28-2023 End: 03-28-2023 Emergency department patient visit BREA SHERMAN [facility] Start: 11-16-2022 ambulatory MD EV MCCARTNEY Facility:[id number] Start: 10-10-2022 End: 10-11-2022 ambulatory Rad Denney Facility:[facility] Start: 10-10-2022 End: 10-10-2022 Patient encounter procedure Rad Panchito Denney [facility] Start: 09-14-2022 End: 09-14-2022 Emergency department patient visit Scottie Umanzor [facility] 14 Start: 06-26-2022 End: 06-27-2022 ambulatory Monika X Orzech Facility:[facility] [place] Start: 06-26-2022 End: 06-26-2022 Patient encounter procedure Monika X Mansoor [facility] Start: 05-18-2022 Patient encounter procedure Aster Frank [employer] Work Phone: Start: 05-18-[address] Atser Frank Fa cility:[id number] Start: 05-08-2022 Rx Renewal Aster Frank Work Phone: [employer] Work Phone: Start: 04-13-[address] Aster Frank Fa cility:[id number] Start: 04-13-2022 Patient encounter procedure Aster Frank Work [facility] Work Phone: Start: 04-08-2022 End: 04-10-2022 Evaluation and management of inpatient Dr. Aster Frank Facility:[id number] Start: 04-06-[address] Aster Frank Fa cility:[id number] Start: 04-06-2022 Office outpatient visit 10 minutes Aster Frank Work Phone: [employer] Work Phone: Start: 04-03-2022 End: 04-03-[address] Aster Frank Facility:[id number] Start: 03-30-[address] Aster Frank Fa cility:[id number] Start: 03-26-2022 Chart Update Aster A Nemaha Work Phone: [place] [address] [address] Work Phone: Start: 03-25-2022 Chart Update Aster A Nemaha Work Phone: [address] Work Phone: Start: 03-23-2022 Office outpatient visit 10 minutes Aster A Otoniel Work Phone: [address] Work Phone: Start: 03-23-[address] Aster Frank Fa cility:[id number] Start: 03-16-2022 Office outpatient visit 10 minutes Aster A Nemaha Work Phone: [address] Work Phone: Start: 03-16-[address] Aster Frank Fa cility:[id number] Start: 03-09-[address] Aster Frank Fa cility:[id number] Start: 03-09-2022 Office outpatient visit 10 minutes Aster A Otoniel Work Phone: [address] Work Phone: Start: 02-23-2022 Office outpatient visit 15 minutes Aster A Otoniel Work Phone: [address] Work Phone: Start: 02-23-[address] Aster Frank Fa cility:[id number] Start: 02-09-2022 Office outpatient visit 10 minutes Aster A Otoniel Work Phone: [place] [address] [address] Work Phone: Start: 02-09-[address] Aster Frank Fa cility:[id number] Start: 01-30-2022 Chart Update Aster A Nemaha Work Phone: [address] Work Phone: Start: 01-26-2022 ambulatory MD EV MCCARTNEY Facility:[id number] Start: 01-15-2022 End: 01-15-[address] Aster Frank Facility:[id number] Start: 12-22-2021 Office outpatient visit 10 minutes Aster A Nemaha Work Phone: [place] [address] [address] Work Phone: Start: 12-22-[address] Aster Frank Fa cility:[id number] Start: 11-27-2021 Chart Update Aster A Otoniel Work Phone: [place] [address] [address] Work Phone: Start: 11-24-2021 Office outpatient visit 10 minutes Aster A Nemaha Work Phone: [place] [address] [address] Work Phone: Start: 11-24-[address] Aster Frank Fa cility:[id number] Start: 10-27-2021 Office outpatient visit 10 minutes Aster A Nemaha Work Phone: [place] [address] [address] Work Phone: Start: 10-03-2021 Chart Update Aster A Nemaha Work Phone: [place] [address] [address] Work Phone: Start: 10-02-2021 AUDIT Aster A Nemaha Work Phone: [place] [address] [address] Work Phone: Start: 09-24-2021 Chart Update Aster A Nemaha Work Phone: [place] [address] [address] Work Phone: Start: 09-22-[address] Aster Frank Fa cility:[id number] Start: 09-22-2021 Office outpatient visit 15 minutes Aster A Nemaha Work Phone: [place] [address] [address] Work Phone: Start: 09-04-2021 AUDIT Aster A Otonile Work Phone: [facility] [address] [address] Work Phone: Start: 08-30-2021 AUDIT Aster A Otoniel Work Phone: [place] [address] [employer] Work Phone: Start: 08-25-2021 Office outpatient ne w 30 minutes Aster A Nemaha Work Phone: [facility] [address] [address] Work Phone: Start: 05-08-2021 Orders Only Brea Sherman MD Work Phone: [facility] Comment on above: Lymphadenopathy, ant erior cervical (Primary Dx) Start: 05-03-2021 End: 05-04-2021 ambulatory [facility] Start: 04-25-2021 Orders Only Brea Sherman MD Work Phone: [facility] Comment on above: Lymphadenopathy, ant erior cervical (Primary Dx) Start: 04-24-2021 End: 04-28-2021 ambulatory [facility] Start: 04-24-2021 End: 04-24-2021 Office outpatient new 30 minutes Brea Sherman MD Work Phone: [facility] Comment on above: Lymphadenopathy, ant erior cervical (Primary Dx) Start: 01-30-2017 End: 01-31-2017 Ambulatory Kannan Briscoe Facility:[facility] Procedures Date Procedure Procedure Detail Performing [...] no HPV testing was performed.Performed at: [facility] [id number] [id number] Director: Dusty Luong MD, Phone: [phone] at: - Lab[address] [id number] Director: Bess Blood MD, Phone: [phone] Start: 08-14-2024 Urine culture DEFINED N OT Start: 07-29-2024 POCT SARS-COV-2/FLU/ RSV PCR SYMPTOMATIC Padmini Sosa APRN-RESIDENTIAL MORTGAGE MANAGER Work Phone: Start: 09-14-2022 End: 09-14-2022 EKG impression Scottie Umanzor Start: 04-08-[address] Kassie Frank Comment on above: Performed By: #### T +S #### [address] [address] Start: 09-22-[address] Kassie Frank Comment on above: Performed By: #### C OINP #### [address] [address] Start: 09-22-2021 Microscopic observat ion [Identifier] in Cervix by Cyto stain Padmini Sosa APRN-RESIDENTIAL MORTGAGE MANAGER Work Phone: Start: 04-24-2021 Adult depression scr eening assessment Brea Sherman MD Work Phone: No history of surgery Aster Frank Work Phone: Plan of Treatment Date Care Activity Detail Author Start: 2047 Zoster Vaccines (1 of 2) Zoste r Vaccines (1 of 2) [facility] Start: 01-27-2032 DTaP/Tdap/Td Vaccine s (2 - Td or Tdap) DTaP/Tdap/Td Vaccines (2 - Td or Tdap) [facility] Start: 12-23-2024 Measurement of gluco se 2 hours after glucose challenge for glucose tolerance test [facility] Start: 12-23-2024 Serologic test for syphilis [facility] Start: 12-23-2024 [facility] Start: 09-22-2024 Screening for malign ant neoplasm of cervix [facility] Start: 03-08-2024 COVID-19 Vaccine () COVID-19 Vaccine () [facility] Start: 03-08-2024 Influenza vaccination Influenza Vacc ine (#1) [facility] Start: 11-16-2022 Patient encounter procedure [facility] Start: 05-18-2022 PPV, Provider: Ev Mccartney, Status: Pen, Time: 2:45 PM PPV, Provider: Ev Mccartney, Status: Pen, Time: 2:45 PM [facility] [employer] Work Phone: Start: 04-24-2022 Depression screening using PHQ-9 (Patient Health Questionnaire 9) score Depression Screening (PHQ-2/9) [facility] Start: 04-13-2022 EPVOB, Provider: Aster Frank, Status: Pen, Time: 9:00 AM EPVOB, Provider: Aster Frank, Status: Pen, Time: 9:00 AM [employer] Work Phone: Start: 04-09-2022 EPVOB, Provider: Aster Frank, Status: Pen, Time: 8:45 AM EPVOB, Provider: Aster Frank, Status: Pen, Time: 8:45 AM [employer] Work Phone: Start: 04-06-2022 EPVOB, Provider: Aster Frank, Status: Pen, Time: 9:15 AM EPVOB, Provider: Aster Frank, Status: Pen, Time: 9:15 AM [employer] Work Phone: Start: 03-30-2022 EPVOB, Provider: Aster Frank, Status: Pen, Time: 9:15 AM EPVOB, Provider: Aster Frank, Status: Pen, Time: 9:15 AM [employer] Work Phone: Start: 03-23-2022 EPVOB, Provider: Aster Frank, Status: Pen, Time: 9:15 AM EPVOB, Provider: Aster Frank, Status: Pen, Time: 9:15 AM [employer] Work Phone: Start: 03-16-2022 EPVOB, Provider: Aster Frank, Status: Pen, Time: 9:15 AM EPVOB, Provider: Aster Frank, Status: Pen, Time: 9:15 AM [employer] Work Phone: Start: 03-09-2022 EPVOB, Provider: Aster Frank, Status: Pen, Time: 8:30 AM EPVOB, Provider: Aster Frank, Status: Pen, Time: 8:30 AM [employer] Work Phone: Start: 02-23-2022 EPVOB, Provider: Maria Luisa Leung, Status: Pen, Time: 8:30 AM EPVOB, Provider: Maria Luisa Leung, Status: Pen, Time: 8:30 AM [employer] Work Phone: Start: 02-09-2022 EPVOB, Provider: Aster Frank, Status: Pen, Time: 9:15 AM EPVOB, Provider: Aster Frank, Status: Pen, Time: 9:15 AM [employer] Work Phone: Start: 01-19-2022 EPVOB, Provider: Aster Frank, Status: Pen, Time: 10:45 AM EPVOB, Provider: Aster Frank, Status: Pen, Time: 10:45 AM [employer] Work Phone: Start: 12-22-2021 EPVOB, Provider: Aster Frank, Status: Pen, Time: 2:15 PM EPVOB, Provider: Aster Frank, Status: Pen, Time: 2:15 PM [employer] Work Phone: Start: 11-24-2021 EPVOB, Provider: Aster Frank, Status: Pen, Time: 2:45 PM EPVOB, Provider: Aster Frank, Status: Pen, Time: 2:45 PM [employer] Work Phone: Start: 10-27-2021 EPVOB, Provider: Aster Frank, Status: Pen, Time: 3:45 PM EPVOB, Provider: Aster Frank, Status: Pen, Time: 3:45 PM [employer] Work Phone: Start: 09-22-2021 EPVOB, Provider: Aster Frank, Status: Pen, Time: 10:45 AM EPVOB, Provider: Aster Frank, Status: Pen, Time: 10:45 AM [employer] Work Phone: Start: 08-08-2021 End: 05-08-2022 Ultrasonography of head and neck US Soft Tissue Neck Imaging Routine Lymphadenopathy, anterior cervical Expected: 08/08/2021, Expires: 05/08/2022 [employer] Work Phone: Comment on above: Expected: 08/08/2021 , Expires: 05/08/2022 Start: 05-09-2021 End: 10-19-2022 Basic metabolic 2000 panel - Serum or Plasma Basic Metabolic Panel Lab Routine Lymphadenopathy, anterior cervical Expected: 05/09/2021, Expires: 04/25/2022 [facility] Work Phone: Comment on above: Expected: 05/09/2021 , Expires: 04/25/2022 Start: 03-08-2021 Influenza vaccination Sequenti al Influenza Vaccine (#1) [facility] Start: 2018 Screening for malign ant neoplasm of cervix HPV/Cotest [facility] Start: 01-24-2016 Hepatitis B Vaccines (1 of 3 - 19+ 3-dose series) Hepatitis B Vaccines (1 of 3 - 19+ 3-dose series) [facility] Start: 2015 Hepatitis C screening Hepatitis C Sc reening [facility] Start: 2010 Varicella vaccination Varicell a Vaccines (1 of 2 - 13+ 2-dose series) [facility] Start: 2009 COVID-19 Vaccine (1) COVID-19 Vaccin e (1) [facility] Start: 01-24-2008 Vaccination for valdo n papillomavirus HPV Vaccines (1 - 2-dose series) [facility] Start: 2002 COVID-19 Vaccine (1) COVID-19 Vaccin e (1) [facility] Start: 01-24-2000 History and physical examination, annual for health maintenance Wellness Visit [facility] Start: 1998 MMR Vaccines (1 of 1 - Standard series) MMR Vaccines (1 of 1 - Standard series) [facility] Start: 1997 Lipid panel Lipid Panel [facility] Start: 1997 Screening for Chlamy mariposa trachomatis Chlamydia Scre[facility] Start: 1997 Screening for malign ant neoplasm of cervix Pap Smear [facility] Start: 1997 Tetanus vaccination Tetanus: Every 1 0yrs [facility] Start: 1997 Yearly Adult Physical Yearly Adult P hysical [facility] CBC W Auto Different ial panel - Blood [facility] End: 05-08-2022 Complete blood count with white cell differential, manual CBC and Differential Lab Routine Lymphadenopathy, anterior cervical 1 Occurrences starting 05/08/2021 until 05/08/2022 [facility] Comment on above: 1 Occurrences starti ng 05/08/2021 until 05/08/2022 End: 05-08-2022 Comprehensive metabolic 2000 panel - Serum or Plasma Comprehensive Metabolic Panel Lab Routine Lymphadenopathy, anterior cervical 1 Occurrences starting 05/08/2021 until 05/08/2022 [employer] Work Phone: Comment on above: 1 Occurrences starti ng 05/08/2021 until 05/08/2022 Comprehensive metabo lic 2000 panel - Serum or Plasma [facility] Measurement of gluco se 2 hours after glucose challenge for glucose tolerance test [facility] Parvovirus B19 IgG A b [Units/volume] in Serum by Immunoassay [facility] Parvovirus B19 IgM A b [Units/volume] in Serum by Immunoassay [facility] Procedure [facility] Serologic test for syphilis [facility] Streptococcus agalac tiae [Presence] in Unspecified specimen by Organism specific culture [facility] US Gallbladder [facility] Immunizations Immunization Date Immunization Notes Care Provider Fa cility 01-26-2022 tetanus toxoid, redu tevin diphtheria toxoid, and acellular pertussis vaccine, adsorbed [facility] 06-05-2021 SARS-CoV-2 (COVID-19 ) mRNA-1273 vaccine [facility] 05-08-2021 SARS-CoV-2 (COVID-19 ) mRNA-1273 vaccine [facility] Payers Date Payer Category Payer Medicaid [id number] 2024 Self-pay 2024 Private Health Insurance GENERIC COMMERCIAL [id number] 2024 Unknown [id number] 2022 Unknown [id number] 2020 Private Health Insurance [id number] 2020 Private Health Insurance [employer]RIS [employer]YER HMO/NTWK/OACCESS/OA+/POS [id number] 2020-Present [phone] [address] [place] [address] [id number]. [id number] 2017 Unknown 1997 Unknown [id number] 2.16.840.1.565622.3.579.2. 903 1997 Unknown [id number] 2.16.840.1.229003.3.579.2. 1997 Unknown [id number] 2.16.840.1.093571.3.579.2. 90 1997 Unknown [id number] 2.16.840.1.716648.3.579.2. 1068 1997 Unknown [id number] 2.16.840.1.736927.3.579.2. 1068 1997 Unknown [id number] 2.16.840.1.483748.3.579.2. 1068 1997 Unknown [id number] 2.16.840.1.024064.3.579.2. 1068 1997 Unknown [id number] 2.16.840.1.017086.3.579.2. 1068 1997 Unknown [id number] 2.16.840.1.216833.3.579.2. 1068 1997 Unknown [id number] 2.16.840.1.504512.3.579.2. 727 1997 Unknown [id number] 2.16.840.1.802658.3.579.2. 727 1997 Unknown [id number] 2.16840.1.545252.3.579.2. 1997 Unknown [id number] 2.16.840.1.951420.3.579.2. 1997 Unknown [id number] 2.16840.1.041011.3.579.2. 1997 Unknown [id number] 2.16840.1.848612.3.579.2. 1997 Unknown [id number] 2.840.1.842489.3.579.2. 1997 Unknown [id number] 2.840.1.811379.3.579.2. 1997 Unknown [id number] 2.840.1.722942.3.579.2. 1997 Unknown [id number] 2.840.1.343958.3.579.2. 1997 Unknown [id number] 2.840.1.186051.3.579.2. 1997 Unknown [id number] 2.840.1.520494.3.579.2. 1997 Unknown [id number] 2.840.1.389850.3.579.2. 1997 Unknown [id number] 2.840.1.025198.3.579.2. 1997 Unknown [id number] 2.16840.1.558115.3.579.2. 1997 Unknown [id number] 2.16840.1.951320.3.579.2. 1997 Unknown [id number] 2.16840.1.894408.3.579.2. 902 1997 Unknown [id number] 2.840.1.631264.3.579.2. 902 1997 Unknown [id number] 2.16.840.1.510230.3.579.2. 1243 1997 Unknown [id number] 2.16.840.1.086349.3.579.2. 479 1997 Unknown [id number] 2.840.1.257405.3.579.2. 479 1997 Unknown [id number] 2.840.1.234031.3.579.2. 479 1997 Unknown [id number] 2.840.1.066205.3.579.2. 479 Unknown [id number] 2.840.1.345288.3.579.2. 462 Unknown [id number] 2.840.1.948526.3.579.2. 462 Unknown [id number] .840.1.404988.3.579.2. 462 Unknown [id number] .840.1.354229.3.579.2. 462 Unknown [id number] 840.1.202859.3.579.2. 462 Unknown [id number] .840.1.528487.3.579.2. 462 Unknown [id number] 840.1.357781.3.579.2. 462 Unknown [id number] .840.1.059116.3.579.2. 462 Unknown [id number] .840.1.119416.3.579.2. 462 Unknown [id number] 2.840.1.132673.3.579.2. 462 Unknown [id number]. 462 Unknown [id number] 2.840.1.236481.3.579.2. 462 Unknown [id number] 2.16.840.1.692326.3.579.2. 462 Unknown [id number] 2.16.840.1.947940.3.579.2. 462 Unknown [id number] 2.16.840.1.397997.3.579.2. 462 Unknown [id number] 2.16.840.1.870861.3.579.2. 462 Unknown [id number] 2.16.840.1.966394.3.579.2. 462 Unknown [id number] 2.16.840.1.100452.3.579.2. 462 Unknown [id number] 2.16.840.1.829853.3.579.2. 462 Unknown [id number] 2.16.840.1.253243.3.579.2. 462 Unknown [id number] 2.16.840.1.007275.3.579.2. 462 Unknown [id number] 2.16.840.1.472170.3.579.2. 462 Social History Date Type Detail Facility Start: 04-24-2021 End: 07-31-2024 Tobacco smoking status NHIS Never smoked tobacco [facility] Start: 04-24-2021 Tobacco use and exposure Smokeless tobacco non-user [facility] Start: 04-24-2021 Alcohol intake Current drinke r of alcohol (finding) [facility] Start: 04-24-2021 History SDOH Alcohol Comment Socially [facility] Start: 1995 Sex Assigned At Not on file O [facility] Start: 07-19-2024 End: 07-29-2024 Exposure to SARS-CoV-2 (event) Not sure [facility] Non-smoker [facility]-sm[facility] [address] Work Phone: Tobacco smoking status Never [facility] Sex Assigned At Female [facility] Tobacco smoking consumption unknown [facility] Start: 09-22-2024 Sex Female (finding) [facility] Start: 1995 Sex Assigned At Female [facility] Functional Status Date Assessment Result Facility 10-10-2022 Functional Status N/A [facility] 06-26-2022 Functional Status N/A [facility] Clinical Notes 04-24-2021 to 03-17-2025 Note Date & Type Note Facility 03-17-2025 Progress note [facility] 03-10-2025 Progress note [facility] 03-10-2025 Progress note Note Date/Time March 10, 2025 2:35pm [facility] [address], [address] [place] [address] OFFICE VISIT Date of Service: 03/10/25 MR#: [id number] Acct: [id number] Name: NISSA CRAIN Rep #: [id number] : 1995 Provider: MARIKA Brambila Age/Sex: 30/F Location[place] [facility] Status: Signed Intake Vital Signs 02/01/25 14:55 03/03/25 14:51 03/10/25 14:23 03/10/25 14:27 Height 5 ft 3 in 5 ft 3 in 5 ft 3 in 5 ft 3 in Weight: 167 lb 1 oz BMI 29.5 BP 129/85 H Intake Visit Reasons: 39wk ob Surgical Lead Required: No Is patient in pain?: No [...] physical activity do you participate in: none antoni/latter-day: None seatbelt use: always do you feel [...] - full term 6lbs 9oz Male epidural [facility] Delivery Date: 04/08/22 Last Updated by: Olive [...] high risk , unspecified, third trimester Comment: [id number], PERLA 03/17/25, [facility]: Kia, : Markos (6) : Status: [...] this visit. [place] appropriate handout given. 03/10/25 0659 <Electronically signed by Yao naidu CNM> Date _ Yao Brambila CNM Cosigner Signature: Date (if applicable) CC: ~ [facility] Work Phone: 1(292) 487-867708-22-2025 Progress [facility] [address] [place] [address], [address] [place] [id number] OFFICE VISIT Date of Service: 02/26/25 MR#: [id number] Acct: [id number] Name: NISSA CRAIN Rep #: [id number] : 1995 Provider: MARIKA Ramos Age/Sex: 30/F Location: [facility] Status: Signed Intake Vital Signs 02/01/25 14:55 02/15/25 15:37 02/26/25 15:25 Height 5 ft 3 in 5 ft 3 in 5 ft 3 in Weight: 167 lb 1 oz BMI 29.5 BP 132/87 H Intake Visit Reasons: 37 WK OB Surgical Lead Required: No Is patient in pain?: No [...] brother number of children: 1 current occupation: [employer] current occupational exposures/hazards: No pets and animals: [...] physical activity do you participate in: none antoni/latter-day: None seatbelt use: always do you feel [...] full term 6lbs 9oz Male epidural [facility] Yana Salazar Delivery Date: 04/08/22 Last [...] Monitoring, Signs and Symptoms of Preeclampsia and [place] Education ROS Const Denies anorexia, Denies body [...] high risk , unspecified, third trimester Comment: [id number], PERLA 03/17/25, [facility]: Najmaotoniel, : [...] 1553 ns CNM> Date _ Krystyna Ramos [facility] Cosigner Signature: Date (if applicable) CC: ~ [facility]08-22-2025 Progress note Author Krystyna Ramos [facility] Note Date/Time February 26, 2025 3: 53pm [facility] [address], [address] [place] [address] OFFICE VISIT Date of Service: 02/26/25 MR#: [id number] Acct: [id number] Name: NISSA CRAIN Rep #: [id number] : 1995 Provider: MARIKA Ramos Age/Sex: 30/F Location: [facility] Status: Signed Intake Vital Signs 02/01/25 14:55 02/15/25 15:37 02/26/25 15:25 Height 5 ft 3 in 5 ft 3 in 5 ft 3 in Weight: 167 lb 1 oz BMI 29.5 BP 132/87 H Intake Visit Reasons: 37 WK OB Surgical Lead Required: No Is patient in pain?: No [...] brother number of children: 1 current occupation: [employer] current occupational exposures/hazards: No pets and animals: [...] physical activity do you participate in: none antoni/latter-day: None seatbelt use: always do you feel [...] full term 6lbs 9oz Male epidural [facility] Yana Salazar Delivery Date: 04/08/22 Last [...] Monitoring, Signs and Symptoms of Preeclampsia and [place] Education ROS Const Denies anorexia, Denies body [...] high risk , unspecified, third trimester Comment: [id number], PERLA 03/17/25, [facility]: Kia, : [...] Cosigner Signature: Date (if applicable) CC: ~ [place] [employer] [facility] Work Phone: 1(275) 160-630608-11-2025 [facility] [address] [place] [address], [address] [place] [address] OFFICE VISIT Date of Service: 02/15/25 MR#: [id number] Acct: [id number] Name: NISSA CRAIN Rep #: [id number] : 1995 Provider: Dr. Arron Taveras MD Age/Sex: 30/F Location: [facility] Status: Signed Intake Vital Signs 12/23/24 13:00 02/01/25 14:55 02/15/25 15:34 02/15/25 15:37 Height 5 ft 3 in 5 ft 3 in 5 ft 3 in 5 ft 3 in Weight: 166 lb 3 oz BMI 29.4 BP 133/78 H Intake Visit Reasons: 36 wk ob Surgical Lead Required: No Is patient in pain?: No [...] brother number of children: 1 current occupation: [employer] current occupational exposures/hazards: No pets and animals: [...] physical activity do you participate in: none antoni/latter-day: None seatbelt use: always do you feel [...] - full term 6lbs 9oz Male epidural [facility] [place] Delivery Date: 04/08/22 Last Updated [...] Monitoring, Signs and Symptoms of Preeclampsia and [place] Education Results POC Urinalysis 2 Dip (Clinic) [...] high risk , unspecified, third trimester Comment: [id number], PERLA 03/17/25, [facility]: Kia, : Markos (6) Asthma: Status: Acute Comment: Childhood (7) : Status: Acute Qualifiers: Weeks of gestation: 35 weeks Qualified Code(s): Z3A.35 - 35 weeks gestation of Comment: NIPT low risk, anatomy reviewed Orders: Orders POC Urinalysis 2 Dip (Clinic) Today 02/15/25 Amanda velez MD> Date _ Thelma Taveras MD Cosigner Signature: Date (if applicable) CC: ~ [facility]08-11-2025 Progress note Author Thelma Taveras [facility] Note Date/Time February 15, 2025 3: 52pm [facility] [address], [address] [place] [address] OFFICE VISIT Date of Service: 02/15/25 MR#: [id number] Acct: [id number] Name: NISSA CRAIN Rep #: [id number] : 1995 Provider: Dr. Arron Taveras MD Age/Sex: 30/F Location: [facility] Status: Signed Intake Vital Signs 12/23/24 13:00 02/01/25 14:55 02/15/25 15:34 02/15/25 15:37 Height 5 ft 3 in 5 ft 3 in 5 ft 3 in 5 ft 3 in Weight: 166 lb 3 oz BMI 29.4 BP 133/78 H Intake Visit Reasons: 36 wk ob Surgical Lead Required: No Is patient in pain?: No [...] physical activity do you participate in: none antoni/latter-day: None seatbelt use: always do you feel [...] - full term 6lbs 9oz Male epidural [facility] [place] Delivery Date: 04/08/22 Last Updated [...] high risk , unspecified, third trimester Comment: [id number], PERLA 03/17/25, [facility]: Kia, : Markos (6) Asthma: Status: Acute Comment: Childhood (7) : Status: Acute Qualifiers: Weeks of gestation: 35 weeks Qualified Code(s): Z3A.35 - 35 weeks gestation of Comment: NIPT low risk, anatomy reviewed Orders: Orders POC Urinalysis 2 Dip (Clinic) Today 02/15/25 5502 <Electronically signed by Thelma velez MD> Date _ Thelma Taveras MD Cosign Signature: Date (if applicable) CC: ~ [facility] Work Phone: 1(439) 624-755007-28-2025 [facility] [address] [place] [address], [address] [place] [id number] OFFICE VISIT Date of Service: 02/01/25 MR#: [id number] Acct: [id number] Name: NISSA CRAIN Rep #: [id number] : 1995 Provider: MARIKA Brambila Age/Sex: 30/F Location: [facility] Status: Signed Intake Vital Signs 12/02/24 15:37 01/25/25 09:30 02/01/25 14:55 Height 5 ft 3 in 5 ft 3 in 5 ft 3 in Weight: 164 lb 2 oz BMI 29.0 BP 121/85 H Intake Visit Reasons: 34wk ob Chief Complaint: 34wk OB Surgical Lead Required: No Is patient in pain?: No [...] brother number of children: 1 current occupation: [employer] current occupational exposures/hazards: No pets and animals: [...] physical activity do you participate in: none antoni/latter-day: None seatbelt use: always do you feel [...] - full term 6lbs 9oz Male epidural [facility] Delivery Date: 10/02/22 Last Updated by: Olive [...] Monitoring, Signs and Symptoms of Preeclampsia and [place]resham Education ROS Const Reports system reviewed and [...] high risk , unspecified, third trimester Comment: [id number], PERLA 03/17/25, PC: Kia, : Markos (6) [...] Cosigner Signature: Date (if applicable) CC: ~ [facility]07-28-2025 Progress note Author Yao Brambila [facility] Note Date/Time February 01, 2025 3:21 pm [facility] [address] [place] [address], [address] [place] [address] OFFICE VISIT Date of Service: 02/01/25 MR#: [id number] Acct: [id number] Name: NISSA CRAIN Rep #: [id number] : 1995 Provider: MARIKA Brambila Age/Sex: 30/F Location: [facility] Status: Signed Intake Vital Signs 12/02/24 15:37 01/25/25 09:30 02/01/25 14:55 Height 5 ft 3 in 5 ft 3 in 5 ft 3 in Weight: 164 lb 2 oz BMI 29.0 BP 121/85 H Intake Visit Reasons: 34wk ob Chief Complaint: 34wk OB Surgical Lead Required: No Is patient in pain?: No [...] brother number of children: 1 current occupation: [employer] current occupational exposures/hazards: No pets and animals: [...] physical activity do you participate in: none antoni/latter-day: None seatbelt use: always do you feel [...] - full term 6lbs 9oz Male epidural [facility] Yana Salazar Delivery Date: 04/08/22 Last Updated [...] high risk , unspecified, third trimester Comment: [id number], PERLA 03/17/25, PC: Kia, : Markos (6) [...] this visit. [place] appropriate handout given. 02/01/25 1525 <Electronically signed by Yao naidu CNM> Date _ Yao Brambila CNM Cosigner Signature: Date (if applicable) CC: ~ [place] [employer] Work Phone: [phone]) 187-559907-25-2025 Marcin Crain is here for consultation at [...] I personally reviewed all labs noted in [facility], as well as those listed below. No results found for this visit on 01/29/25. No results found for: CREATININE, BUN, NA, K, CL, CO2 No results found for: URINECULT Results Imaging: I personally reviewed and interpreted all imaging studies noted in [facility], as well as relevant imaging [...] file as of 01/29/2025. [2] No [facility]ies[facility] Mozunjxd17-03-0619 [facility] [address] [facility], [address] [place] [address] OFFICE VISIT Date of Service: 01/25/25 MR#: [id number] Acct: [id number] Name: NISSA CRAIN Rep #: [id number] : 1995 Provider: MARIKA Brambila Age/Sex: 30/F Location: [facility] Status: Signed Intake Vital Signs 12/02/24 15:37 01/04/25 14:10 01/25/25 09:30 Height 5 ft 3 in 5 ft 3 in 5 ft 3 in Weight: 161 lb 8 oz BMI 28.5 BP 123/78 H Intake Visit Reasons: 32wk ob Chief Complaint: 32wk OB Surgical Lead Required: No Is patient in pain?: No [...] brother number of children: 1 current occupation: [employer] current occupational exposures/hazards: No pets and animals: [...] physical activity do you participate in: none antoni/latter-day: None seatbelt use: always do you feel [...] full term 6lbs 9oz Male epidural [facility] [place] Delivery Date: 04/08/22 Last Updated by: [...] Monitoring, Signs and Symptoms of Preeclampsia and Gresham Education ROS Const Reports system reviewed and [...] high risk , unspecified, third trimester Comment: [id number], PERLA 03/17/25, PC: Kia, : Markos (6) [...] Greer Signature: Date (if applicable) CC: ~ [facility]06-18-2025 [facility] [address] [place] [address], [address] [place] [address] OFFICE VISIT Date of Service: 12/23/24 MR#: [id number] Acct: [id number] Name: PARASNISSA RAE Rep #: [id number] : 1995 Provider: Dr. Arron Taveras MD Age/Sex: 29/F Location: [facility] Status: Signed Intake Vital Signs 10/08/24 14:53 12/02/24 15:37 12/23/24 12:57 12/23/24 13:00 Height 5 ft 3 in 5 ft 3 in 5 ft 3 in 5 ft 3 in Weight: 157 lb 4 oz BMI 27.8 BP 118/74 Intake Visit Reasons: 28wk ob/glucose Surgical Lead Required: No Is patient in pain?: No [...] brother number of children: 1 current occupation: [employer] current occupational exposures/hazards: No pets and animals: [...] physical activity do you participate in: none antoni/latter-day: None seatbelt use: always do you feel [...] full term 6lbs 9oz Male epidural [facility] Yana Salazar Delivery Date: 04/08/22 Last [...] Greer Signature: Date (if applicable) CC: ~ [facility]05-28-2025 Evaluation note* Diagnosis Onset Date Resolution Status [...] high-risk acute March 10, 2 025 2:20pm [facility] Work Phone: 1(150) 110-224305-28-2025 Evaluation note* Diagnosis Onset Date Resolution Status [...] of high-risk acute March 17, 2025 9:16am [facility] Work Phone: 1([phone]) 950-307905-28-2025 [facility] [address] [place] [address], [address] [place], [place] [address] OFFICE VISIT Date of Service: 12/02/24 MR#: [id number] Acct: [id number] Name: NISSA CRAIN Rep #: [id number] : 1995 Provider: STEFANIE Avila Age/Sex: 29/F Location: [facility] Status: Signed Intake Vital Signs 10/08/24 14:53 11/06/24 13:20 12/02/24 15:37 Height 5 ft 3 in 5 ft 3 in 5 ft 3 in Weight: 154 lb 8 oz BMI 27.3 BP 118/72 Intake Visit Reasons: 25wk ob Chief Complaint: 25 Week OB Surgical Lead Required: No Is patient in pain?: No [...] brother number of children: 1 current occupation: [employer] current occupational exposures/hazards: No pets and animals: [...] physical activity do you participate in: none antoni/latter-day: None seatbelt use: always do you feel [...] full term 6lbs 9oz Male epidural [facility] Yana Salazar Delivery Date: 04/08/22 Last [...] Monitoring, Signs and Symptoms of Preeclampsia and Gresham Education ROS Const Reports system reviewed and [...] care and follow up. 12/02/24 1558 s ARRT TECHNOLOGIST STEFANIE> Date _ Andre Yeungigner Signature: Date (if applicable) CC: ~ [facility]05-28-2025 Progress note Author Andre Avila [facility] Note Date/Time December 02, 2024 3:58p [facility] [address], [address] [place] [address] OFFICE VISIT Date of Service: 12/02/24 MR#: [id number] Acct: [id number] Name: NISSA CRAIN Rep #: [id number] : 1995 Provider: STEFANIE Avila Age/Sex: 29/F Location: [facility] Status: Signed Intake Vital Signs 10/08/24 14:53 11/06/24 13:20 12/02/24 15:37 Height 5 ft 3 in 5 ft 3 in 5 ft 3 in Weight: 154 lb 8 oz BMI 27.3 BP 118/72 Intake Visit Reasons: 25wk ob Chief Complaint: 25 Week OB Surgical Lead Required: No Is patient in pain?: No [...] brother number of children: 1 current occupation: [employer] current occupational exposures/hazards: No pets and animals: [...] physical activity do you participate in: none antoni/latter-day: None seatbelt use: always do you feel [...] - full term 6lbs 9oz Male epidural [facility] Delivery Date: 04/08/22 Last Updated by: Olive [...] Monitoring, Signs and Symptoms of Preeclampsia and Gresham Education ROS Const Reports system reviewed and [...] Continue routine care and follow up. 12/02/24 0492 <Electronically signed by Andre naidu NP [employer] TECHNOLOGIST-C> Date _ Andre Avila NP [employer]RT TECHNOLOGIST-C Cosigner Signature: Date (if applicable) CC: ~ [facility] [employer] [facility] Work Phone: 1(513) 224-181305-02-2025 Evaluation note* Diagnosis Onset Date Resolution Status [...] Supervision of high-risk acute February 15 3:28pm [facility] [employer] Work Phone: 1([phone]) 307-652005-02-2025 Evaluation note* Diagnosis Onset Date Resolution Status [...] Supervision of high-risk acute February 26 3:24pm [facility] Work Phone: 1(722) 596-550505-02-2025 Evaluation note* Diagnosis Onset Date Resolution Status [...] Supervision of high-risk acute March 03 2:58pm [facility] Work Phone: 1([phone]) 756-887005-02-2025 Evaluation note* Diagnosis Onset Date Resolution Status [...] Supervision of high-risk acute March 03 2:58pm [facility] Work Phone: 1([phone]) [phone] Evaluation note* Diagnosis Onset Date Resolution Status [...] of high-risk acute January 25, 2025 9:29am [facility] [employer] Work Phone: [phone] Evaluation note* Diagnosis Onset Date Resolution Status [...] of high-risk acute February 01, 2025 2:46pm [facility] [employer] [facility] Work Phone: 1([phone]) 578-844503-07-2025 Evaluation note* Diagnosis Onset Date Resolution Status [...] of high-risk acute December 23, 2024 12:40pm [facility] [employer] [facility] Work Phone: 1([phone]) 526-920503-07-2025 Evaluation note* Diagnosis Onset Date Resolution Status [...] 2:08pm RUQ pain resolved January 04 2:08pm [facility] Work Phone: 1([phone]) 308-582002-07-2025 Evaluation note* Diagnosis Onset Date Resolution Status Admit Date Asthma acute August 14, 2024 2:08pm History of gestational hypertension acute August 14 2:08pm acute August 14, 2024 2:08pm Supervision of high-risk acute August 14 2:08pm Asthma acute September 11 9:52am History of gestational hypertension acute September 11, 2024 9:52am acute September 11 9:52am Supervision of high-risk acute September 11, 2024 9:52am [facility] Work Phone: [phone]) 605-801302-07-2025 Evaluation note* Diagnosis Onset Date Resolution Status [...] high-risk acute November 06, 2024 1: 15pm [facility] Work Phone: [phone]) 821-598002-07-2025 Evaluation note* Diagnosis Onset Date Resolution Status [...] high-risk acute December 02, 2024 3 :34pm [facility] Work Phone: 1([phone]) 712-315802-07-2025 NotePap Smear Specimen AdequacyFebr2024 5:08pmComment.Satisfactory for evaluation. Endocervical and/or squamous metaplasticcells (endocervical component)are present.[facility] A#[id number] Regional Medical Center South CampusComment on above:Satisfactory for evaluation. Endocervical and/or squamous metaplasticcells (endocervical component)are present.07-29-2024 History of Present illness Narrative* Padmini Sosa, JUNIOR DATA ANALYST-RESIDENTIAL MORTGAGE MANAGER - 07/29/2024 5:15 PM EST [facility] NOTE: Name: Nissa Crain, 29 y.o. CSN:[id number] PCP: Aster Frank, DO ALL: No Known [...] utilized Tylenol without much relief; no other swgy-gzz-tziolgo medications or home remedies for symptom management. [...] and frontal sinus tenderness present. Mouth/Throat: Lips: [place]. Mouth: Mucous membranes are moist. Pharynx: Uvula [...] Padmini Sosa APRN, ROBERT Advanced Practice Provider [facility] Please note: While the patient may or may not have received printed discharge paperwork, all relevant medical findings, test results, and treatment details are accessible through the electronic medical record system. The patient is encouraged to review their chart via the patient portal for comprehensive information and follow-up instructions. documented in this [facility] Work Phone: 1(600) 447-436012-20-2022 Hospital Discharge instructions Patient Education 06/26/2022 11:28:46 [...] start to feel better. Take or apply iqoi-rhw-eftorcd and prescription medicines only as told by [...] 06/24/2006 Document Revised: 10/13/2019 Document Reviewed: 01/28/2019 PISTIS Consult Patient Education 2020 Data Driven Delivery System. 06/26/2022 11:28:44 Upper Respiratory Infection, Adult Upper [...] medicines to help relieve symptoms, such as: Eswr-sgi-evzravq cold medicines. Cough suppressants. Coughing is a [...] and other clear broths. General instructions Take atja-svu-xhwxgje and prescription medicines only as told by [...] and water are not available, use hand otolaryngologist. ?Avoid touching your mouth, face, eyes, or [...] 12/18/2001 Document Revised: 07/02/2019 Document Reviewed: 02/07/2018 PISTIS Consult Patient Education AppRedeem. [facility] 10-07-2022 History of Present illness [id number] presents for blood pressure check. Patient was [...] no vision changes or upper abdominal pain with[address] Work Phone: 1([phone]) 536-320110-04-2022 NoteSend Summary: Discharge Summary Providers: Provider RoleProvider Name ReferringEv Mccartney Note Recipients: Ev Mccartney MD Discharge: Summary: Admission Date: .07-Apr-2022 18:16:00 Discharge Date: 10-Apr-2022 Attending Physician at Discharge: Aster Frank Admission Reason: 39 weeks. GHTN Final Discharge Diagnoses: 39 weeks. GHTN Procedures: Spontaneous vaginal delivery Condition at Discharge: Satisfactory Disposition at Discharge: .Home Vital Signs: T PRBPMAPSpO2 Value36.59739956/6927621% Date/Time04/09 23:5804/09 23:583 23:5804/09 23:5804/09 23:583 23:58 Range(36.3C - 36.7C ) (85 - 107 ) (16 - 16 ) (119 - 142 )/ (80 - 98 ) (93 - 114 ) (98% - 100% ) Date: Weight/Scale Type:Height: 07-Apr-2022 23:4471.2 kg / xiqthndp394.4 cm Physical Exam: Please see rounding note Hospital Course: Patient recuperated well in the period. Precautions reviewed returning to bedside. All questions answered. Patient is on blood pressure cuff. Patient to take it twice a day and follow-up Saturday for blood pressure check Discharge Information: and Continuing Care: Lab Results - Pending: None Radiology Results - Pending: None [place] Suicide Risk: negative Discharge Instructions: Activity: Return [...] Completion Last Updated: 10-Apr-2022 04:50 by Aster Frank)[facility] 04-08-2022 NoteProvider Information: Maternal Delivery Information: Delivery [...] From History and Physical - OB 07-Apr-2022 23:28[facility]10-02-2022 NoteHPI/OB History: Care Provider: Aster Frank [facility] Descriptive Info: HPI Patient is [...] Total Protein/Creatinine Ratio: 0.2 Antepartum/: Antepartum/PP: Final [id number] Current EGA:38.3 Patient is > or = [...] deliveryno Does patient desire postplacental IUDuncertain 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 Objective: Objective Information: T PRBPMAPSpO2 [id number]/[id number]% Date/Time04/07 18: 22: 22: 22: 22: 20:03 [...] affect NST Interpretation - Baby A: Baseline TFC911 Variabilitymoderate (amplitude range 6 to 25 bpm) [...] symptoms of severe feat (more content not included)...[facility]10-18-2021 Miscellaneous Notes* Assessment & Plan Note - Brea Sherman MD - 04/24/2021 3:57 PM EDT Associated Problem(s): Lymphadenopathy, anterior cervical Will test for ebv and hiv US soft tissue neck ordered -likely reactive as pt does not have any systemic symptoms documented in this [id number] Instructions* Patient Instructions* Brea Sherman MD - [...] Most normal results will be available through [facility] however if abnormal, you will be notified. [...] look into their status. Customer Service/Billing Questions: [phone] [facility] Assistance: [phone] or [phone] Financial Assistance: [phone] or [phone] documented in this [id number] History of Present illness Narrative* Brea Sherman [...] note No data available for this section [facility] Evaluation note* Diagnosis Lymphadenopathy, [...] URI with cough documented in this encounter [facility] Work Phone: History of Present illness NarrativePatient is a 27-year-old who comes in for her 6-week visit. Patient reports that she is still having periodic dark blood. Patient reports she stopped for a week but then restarted bleedingagain recently. Patient is currently breast-feeding and has no interest in contraception.[address] Work Phone: Hospital Discharge instructions No data available for this section [facility] Progress note No data available for this section [facility] Promffnx note Author Thelma Taveras [facility] Note Date/Time December 23, 2024 1:39 pm [facility] [address] [place] [address], [address] [place] [address] OFFICE VISIT Date of Service: 12/23/24 MR#: [id number] Acct: [id number] Name: NISSA CRAIN Rep #: [id number] : 1995 Provider: Dr. Arron Taveras MD Age/Sex: 29/F Location: [facility] [place] Status: Signed Intake Vital Signs 10/08/24 14:53 12/02/24 15:37 12/23/24 12:57 12/23/24 13:00 Height 5 ft 3 in 5 ft 3 in 5 ft 3 in 5 ft 3 in Weight: 157 lb 4 oz BMI 27.8 BP 118/74 Intake Visit Reasons: 28wk ob/glucose Surgical Lead Required: No Is patient in pain?: No [...] brother number of children: 1 current occupation: [employer] current occupational exposures/hazards: No pets and animals: [...] physical activity do you participate in: none antoni/latter-day: None seatbelt use: always do you feel [...] - full term 6lbs 9oz [facility] [place] Delivery Date: 04/08/22 Last Updated [...] POC Urinalysis 2 Dip (Clinic) Today 12/23/24 133 <Electronically signed by Thelma velez MD> Date _ Thelma Taveras MD Cosigner Signature: Date (if applicable) CC: ~ [facility] Work Phone: Progress note Author Yao Brambila [facility] Note Date/Time January 25, 2025 9:45 am [facility] [address] [place] [address], [address] [place] [address] OFFICE VISIT Date of Service: 01/25/25 MR#: [id number] Acct: [id number] Name: NISSA CRAIN Rep #: [id number] : 1995 Provider: MARIKA Brambila Age/Sex: 30/F Location: [facility] [place] Status: Signed Intake Vital Signs 12/02/24 15:37 01/04/25 14:10 01/25/25 09:30 Height 5 ft 3 in 5 ft 3 in 5 ft 3 in Weight: 161 lb 8 oz BMI 28.5 BP 123/78 H Intake Visit Reasons: 32wk ob Chief Complaint: 32wk OB Surgical Lead Required: No Is patient in pain?: No [...] brother number of children: 1 current occupation: [employer] current occupational exposures/hazards: No pets and animals: [...] physical activity do you participate in: none antoni/latter-day: None seatbelt use: always do you feel [...] full term 6lbs 9oz Male epidural [facility] [place] Delivery Date: 04/08/22 Last Updated by: [...] Monitoring, Signs and Symptoms of Preeclampsia and [place] Education ROS Const Reports system reviewed and [...] high risk , unspecified, third trimester Comment: [id number], PERLA 03/17/25, PC: Kia, : Markos (6) [...] Cosigner Signature: Date (if applicable) CC: ~ [facility] Work Phone: Progress note Author Yao Brambila [facility] Note Date/Time March 17, 2025 9:41am [facility] [address] [place] [address], [address] [place] [address] OFFICE VISIT Date of Service: 03/17/25 MR#: [id number] Acct: [id number] Name: NISSA CRAIN Rep #: [id number] : 1995 Provider: MARIKA Brambila Age/Sex: 30/F Location[place] [facility] [place] Status: Signed Intake Vital Signs 02/01/25 14:55 03/10/25 14:27 03/17/25 09:23 Height 5 ft 3 in 5 ft 3 in 5 ft 3 in Weight: 168 lb 5 oz BMI 29.8 BP 135/89 H Intake Visit Reasons: 40wk ob *HAPPY DUE DATE Chief Complaint: 40wk OB Surgical Lead Required: No Is patient in pain?: No [...] brother number of children: 1 current occupation: [employer] current occupational exposures/hazards: No pets and animals: [...] physical activity do you participate in: none antoni/latter-day: None seatbelt use: always do you feel [...] - full term 6lbs 9oz [facility] Delivery [facility]: 04/08/22 Last Updated by: Olive [...] Monitoring, Signs and Symptoms of Preeclampsia and [place] Education ROS Const Reports system reviewed and [...] high risk , unspecified, third trimester Comment: [id number], PERLA 03/17/25, [place]: Kia, : [...] Cosigner Signature: Date (if applicable) CC: ~ [facility] Work Phone: Reason for referral (narrative)No reason for referral information [facility]WFirelands [facility] Work Phone: Summary Purpose Family History Unknown [...] Documents on File Type Date Recorded 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 Advance Directives and Living Will Documents on File Type Date Recorded 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 Advance Directives and Living Will Reason for Referral Specialty Diagnoses / Procedures Referred By Isha t Referred To Contact Radiology Diagnoses Lymphadenopathy, anterior cervical Procedures US Soft Tissue Neck Brea Sherman MD [address] [address] [address] [place] [address] Referral ID Status Reason Start Date Expiration Date V isits Requested Visits Authorized [id number] Pending Review 08/08/2021 08/08/2022 1 1 Referral ID Status Reason Start Date Expiration Date Visits Re quested Visits Authorized [id number] Closed 04/24/2021 04/24/2022 1 1 Chief Complaint [...] 2024 9:52 am History of gestational hypertension [facility] 2024 9:52am September 11, 2024 9:52 [...] section and content) DATE CREATED AUTHOR 01/01/2018 [facility] DATE CREATED AUTHOR AUTHOR'S ORGANIZ ATION 04/25/2021 [facility] DATE CREATED AUTHOR AUTHOR'S ORGANIZ ATION 05/07/2021 [facility] DATE CREATED AUTHOR AUTHOR'S ORGANIZ ATION 05/19/2022 [facility] DATE CREATED AUTHOR AUTHOR'S ORGANIZ ATION 09/19/2022 [facility] DATE CREATED AUTHOR AUTHOR'S ORGANIZ ATION 10/12/2022 [facility] DATE CREATED AUTHOR AUTHOR'S ORGANIZ ATION 11/18/2022 [facility] DATE CREATED AUTHOR AUTHOR'S ORGANIZ ATION 05/03/2023 [facility] DATE CREATED AUTHOR AUTHOR'S ORGANIZ ATION 07/31/2024 [facility] DATE CREATED AUTHOR AUTHOR'S ORGANIZ ATION 12/05/2024 [facility] DATE CREATED AUTHOR AUTHOR'S ORGANIZ ATION 01/30/2025 [facility] DATE CREATED AUTHOR AUTHOR'S ORGANIZ ATION 03/12/2025 [facility] Care Teams (unrecognized sec tion and [...] DEFINED NOT Referring Provider Active Start: Dionicio [facility] 2024 End: September 11, 2024 Team Status: [...] November 25, 2024 End: November 25, 2024 Treasury Agent Relationship Specialty Start Date End Date Brea Sherman MD [address] [address] PCP - General Internal Medicine 04/24/21 Treasury Agent Relationship Specialty Start Date End Date Brea Sherman MD [address] [address] PCP - General Internal Medicine 04/24/21 Treasury Agent Relationship Specialty Start Date End Date Brea Sherman MD [address] [id number] PCP - General Internal Medicine 04/24/21 Treasury Agent Relationship Specialty Start Date End Date Brea Sherman MD [address] [id number] PCP - General Internal Medicine 04/24/21 Treasury Agent Relationship Specialty Start Date End Date Aster Frank DO [address] [place] [address] [facility] Building, [place] [id number] PCP - General 08/25/21 Team Status: Active Member Role Status Dates Olive Day RN Attending Provider Active St art: July 31, 2024 Team Status: Inactive Member Role Status Dates DEFINED NOT Primary Care Provider Active Start: December 02, 2024 End: December 02, 2024 DEFINED NOT Referring Provider Active Start: Dionicio lewis 2024 End: December 02, 2024 Andre Avila NP, ARRT TECHNOLOGIST-C Attending Provider Active Start: December 02, 2024 [...] DEFINED NOT Referring Provider Active Start: Dionicio [facility] 2024 End: September 11, 2024 Team Status: [...] End: December 02, 2024 Andre Avila NP, ARRT TECHNOLOGIST-C Attending Provider Active Start: December 02, 2024 [...] 2024 End: January 04, 2025 Andre Avila ARRT TECHNOLOGIST, ARRT TECHNOLOGIST-C Attending Provider Active Start: January 04, 2025 [...] End: December 02, 2024 Andre Avila NP, ARRT TECHNOLOGIST-C Attending Provider Active Start: December 02, 2024 [...] 2024 End: January 04, 2025 Andre Avila ARRT TECHNOLOGIST, ARRT TECHNOLOGIST-C Attending Provider Active Start: January 04, 2025 [...] y 2024 End: December 02, 2024 Andre vAila ARRT TECHNOLOGIST, ARRT TECHNOLOGIST-C Attending Provider Active Start: December 02, 2024 [...] End: January 04, 2025 Andre Avila NP ARRT TECHNOLOGIST-C Attending Provider Active Start: January 04, 2025 [...] Member Role/Relationship Status Dates Andre Avila NP ARRT TECHNOLOGIST-C Attending Provider Active Start: March 03, 2025 [...] End: December 02, 2024 Andre Avila NP, ARRT TECHNOLOGIST-C Attending Provider Active Start: December 02, 2024 [...] End: January 04, 2025 Andre Avila NP, ARRT TECHNOLOGIST-C Attending Provider Active Start: January 04, 2025 [...] Member Role/Relationship Status Dates Andre Avila NP, ARRT TECHNOLOGIST-C Attending Provider Active Start: March 03, 2025 [...] BE BASED ON THE PRIMARY CLINICAL RECORDS. [facility]. provides no warranty or guarantee of the accuracy or completeness of information in this document.
[2025-03-18] MEDS: Lactated Ringers 1,000 ML 50 ML IV (03:50)
[2025-03-18] MEDS: Lactated Ringers 1,000 ML 999 ML IV (03:50)
[2025-03-18 04:07] LABS: ROM Internal Control Test YES-OK TO RESULT pt. (Internal QC); ROM Patient Test POSITIVE (Negative); Record Kit Lot#, ROM+ K3358
[2025-03-18 04:15] LABS: Hematocrit 31.2 % (37-47); Hemoglobin 10.1 g/dL (12.0-15.0); Immature Granulocytes Count 0.110 X10^3/uL (0.0-0.0); Mean Corp Hgb Conc 32.4 g/dL (32-36); Mean Corpuscular Volume 85.0 fL (81-99); Mean Platelet Vol. 10.7 fl (6.2-12.0); NRBC Flagged by Analyzer 0 % (0-5); Platelet Count 328 K/mm3 (150-450); RBC Distribution Width CV 13.6 % (11.6-14.6); RBC Distribution Width SD 42.0 fl (35.1-43.9); Red Blood Count 3.67 M/mm3 (4.2-5.4); White Blood Count 14.1 K/mm3 (4.4-11.0)
[2025-03-18] MEDS: fentaNYL-bupivacaine (epidural) 100 ML BAG EPIDURAL (04:50)
[2025-03-18 04:53] LABS: Syphilis Antibodies Nonreactive (Nonreactive)
--- NOTE | 2025-03-18 06:26 | HP.PCM.OB_ITS ---
HPI - General General Date of Admission: 03/18/25 Date of Service: 03/18/25 HPI Narrative MILLIE CRAIN, is a 30 F at 40.1 weeks gestation who presents to unit in active labor. Maternal Data Information PERLA Calculator Estimated Delivery Date Method Current WG Current Estimate 03/17/25 LMP (Certain) 40w 1d Other Estimates 03/18/25 Ultrasound #1 40w 0d Final PERLA: 03/17/25 Final PERLA Source: US >20 weeks Gestational age: 40.1 [facility] Medical History (Updated 03/18/25 @ 06:28 by Vibha Casillas CNM) Gestational HTN Allergy/AdvReac Type Severity Reaction Status Date / Time No Known Allergies Allergy Verified 03/18/25 03:09 Family History Grandfather Stomach cancer Grandmother Breast cancer Social History adopted: No household members: spouse, children and other details: Pt's youger brother number of children: 1 current occupation: [employer] current occupational exposures/hazards: No pets and animals: Yes pets and animals: dog(s) history of recent travel: No sexually active: Yes Smoking Status: Never smoker alcohol intake: current alcohol intake frequency: holidays/special occasions only details: Not while substance use type: does not use well-balanced diet: daily or most days caffeine: Yes Type: carbonated beverages eating out: 1-3 times/week during the past year weight has: remained stable what type of physical activity do you participate in: none antoni/protestant: None seatbelt use: always do you feel safe at home: Yes additional social history: : Martin Williamson Us History 2 Elective abortions Hx Para 1 Spontaneous abortions 0 Hx # Term Pregnancies 1 Ectopic pregnancies Hx # Pregnancies Multiple births # of living children 1 Past Pregnancies Del. Date Name GA/Weeks Outcome Route Bth Weight Infant Gen Labor Lgth Anesthesia Del Locatn Provider FOB 04/08/22 Kia 37 live - full term 6lbs 9oz Male epidural [facility] Martin Delivery Date: 04/08/22 Last Updated by: Olive Day RN Induced for high blood pressure Visit Details Expected Delivery Route/Plan Labor Preferences- CB/BF classes: no labor support person: Markos labor intervention preferences: [] pain management options preferred: epidural cut cord/dad catch: cord : yes PP control planned: discussed discussed possible routes of delivery and associated risks: [] special requests: [] Plans Covid status: [] Flu vaccine: [] Tdap vaccine: declines Rhogam: na LARC form signed: yes Problem list reviewed and updated with the most current plan of care details and appropriate orders placed. Relevant counseling for the gestational age provided. Continue routine care and follow up unless otherwise noted in visit notes/problem list details OB Flowsheet Initial Weight: Not Recorded Date -?-?-?-?-?-?-?-?-?-?-?-?- EGA Weight BP Urine Prot -?-?-?-?-?-?-?-?-?-?-?-?- Glucose FHR FuHt Pres Dilation -?-?-?-?-?-?-?-?-?-?-?-?- Effaced St Visit Note 08/14/24 -?-?-?-?-?-?-?-?-?-?-?-?- 9w 2d 141 lb 2 oz 126/74 -?-?-?-?-?-?-?-?-?-?-?-?- 179 -?-?-?-?-?-?-?-?-?-?-?-?- SM- CRL 9w1d con s with lmp 09/11/24 -?-?-?-?-?-?-?-?-?-?-?-?- 13w 2d 143 lb 6 oz 119/78 -?-?-?-?-?-?-?-?-?-?-?-?- 159 -?-?-?-?-?-?-?-?-?-?-?-?- KW- no vb/crampi ng. US ordered. encouraged to take PNV at night KW- no vb/cramping. US order ed. encouraged to take PNV at night. NIPT today 10/08/24 -?-?-?-?-?-?-?-?-?-?-?-?- 17w 1d 146 lb 6 oz 111/74 Nega tive -?-?-?-?-?-?-?-?-?-?-?-?- Negative 153 -?-?-?-?-?-?-?-?-?-?-?-?- JV- still having nausea. sawyerarsh refilled. anatomy scan scheduled 10/2011/06/24 -?-?-?-?-?-?-?-?-?-?-?-?- 21w 2d 150 lb 120/73 Negative -?-?-?-?-?-?-?-?-?-?-?-?- Negative 155 -?-?-?-?-?-?-?-?-?-?-?-?- KW- no vb/lof/ct x. good fm reviewed US. doing well. 12/02/24 -?-?-?-?-?-?-?-?-?-?-?-?- 25w 0d 154 lb 8 oz 118/72 Nega tive -?-?-?-?-?-?-?-?-?-?-?-?- Negative 152 -?-?-?-?-?-?-?-?-?-?-?-?- MH-NO VB, LOF. G ood FM. Having off and RUQ pain. NO rash or itching. GB US and labs 12/23/24 -?-?-?-?-?-?-?-?-?-?-?-?- 28w 0d 157 lb 4 oz 118/74 Nega tive -?-?-?-?-?-?-?-?-?-?-?-?- Negative 145 28 -?-?-?-?-?-?-?-?-?-?-?-?- SM- no vb lof go odf m no reugalr ctx 01/04/25 -?-?-?-?-?-?-?-?-?-?-?-?- 29w 5d 160 lb 8 oz 112/68 Nega tive -?-?-?-?-?-?-?-?-?-?-?-?- Negative 156 30 -?-?-?-?-?-?-?-?-?-?-?-?- MH-No VB, LOF. G ood FM. Has not been taking PNV. Mild anemia-take gummy PNV at night and Fe supp with OJ Qam. 01/25/25 -?-?-?-?-?-?-?-?-?-?-?-?- 32w 5d 161 lb 8 oz 123/78 Nega tive -?-?-?-?-?-?-?-?-?-?-?-?- Negative 140 32 -?-?-?-?-?-?-?-?-?-?-?-?- KW- no vb/lof/ct x. good fm. US reviewed. 02/01/25 -?-?-?-?-?-?-?-?-?-?-?-?- 33w 5d 164 lb 2 oz 121/85 Nega tive -?-?-?-?-?-?-?-?-?-?-?-?- Negative 135 34 -?-?-?-?-?-?-?-?-?-?-?-?- KW- no vb/lof/ct x. good fm. US scheduled for 36 weeks. compression hose for occasional episodes of dizziness. 02/15/25 -?-?-?-?-?-?-?-?-?-?-?-?- 35w 5d 166 lb 3 oz 133/78 Nega tive -?-?-?-?-?-?-?-?-?-?-?--?- Negative 135 36 -?-?-?-?-?-?-?-?-?-?-?-?- SM- no vb lof go od fm n oregular ctx 02/26/25 -?-?-?-?-?-?-?-?-?-?-?-?- 37w 2d 167 lb 1 oz 132/87 Nega tive -?-?-?-?-?-?-?-?-?-?-?-?- Negative 145 37 1 -?-?-?-?-?-?-?-?-?-?-?-?- 60 -3 LC- no vb/ ctx/lof. good fm. LC- no vb/ctx/lof. good fm. gbs collected. 03/03/25 -?-?-?-?-?-?-?-?-?-?-?-?- 38w 0d 166 lb 3 oz 131/87 Nega tive -?-?-?-?-?-?-?-?-?-?-?-?- Negative 143 38 1 -?-?-?-?-?-?-?-?-?-?-?-?- MH-NO VB, LOF. N o CTX. No change in cx. Good FM 03/10/25 -?-?-?-?-?-?-?-?-?-?-?-?- 39w 0d 167 lb 1 oz 129/85 -?-?-?-?-?-?-?-?-?-?-?-?- 120 40 Cephalic 1 -?-?-?-?-?-?-?-?-?-?-?-?- 60 -3 KW- no vb/ lof/ctx. good fm. discussed IOL if needed. 03/17/25 -?-?-?-?-?-?-?-?-?-?-?-?- 40w 0d 168 lb 5 oz 135/89 Nega tive -?-?-?-?-?-?-?-?-?-?-?-?- Negative 130 40 Cephalic 2 -?-?-?-?-?-?-?-?-?-?-?-?- 60 -2 KW- no vb/ lof/ctx. good fm. membrane sweep today. IOL set up for next week NST FHR Rate Baby A Baseline: 135 Variability:: Moderate Accelerations:: 15 x 15 Decelerations:: None NST Reactive:: Yes FHR Category:: Category I Uterine Activity:: 3-4 minutes ROS Constitutional Constitutional: Denies change in weight, fatigue, fever(s), headache(s), poor appetite or weakness Eyes Eyes: Denies blurry vision, change in vision, floaters, seeing flashes or spots in vision ENT HEENT: Denies dizziness, headache(s), loss taste/smell or sore throat Cardiovascular Cardiovascular: Denies chest pain, dizziness, dyspnea, irregular heart rhythm, lightheadedness, palpitations or rapid heart rate Respiratory/Chest Respiratory/Chest: Denies change in mental status, chest tightness, cough, dyspnea or breast pain Gastrointestinal Gastrointestinal: Denies anorexia, chewing difficulty, constipation, diarrhea or weight changes Genitourinary Genitourinary: Denies difficulty urinating, dysuria, flank pain, genital pain, urinary frequency or urinary urgency Musculoskeletal Musculoskeletal: Denies back pain, difficulty walking, extremity pain, joint pain, muscle cramps or muscle weakness Integumentary Integumentary: Denies lesions or unusual bruising Neurologic Neurologic: Denies abnormal movements, abnormal speech, dizziness, numbness, seizure-like activity, syncope or weakness Psychiatric Psychiatric: Denies behavioral changes, change in appetite, confusion, depression, homicidal ideation, suicidal ideation or suicidal thoughts Endocrine Endocrinology: Denies excessive sweating, polydipsia or polyuria Hematologic/Lymphatic Hematologic/Lymphatic: Denies anemia Allergic/Immunologic Allergic/Immunologic: Denies itchy eyes, lip swelling, throat swelling, tongue swelling or wheezing Vital Signs Vital Signs Vital Signs: 03/18/25 03:05 03/18/25 03:06 03/18/25 03:06 Temperature Temperature Source Pulse Rate 100 Respiratory Rate 16 Blood Pressure BP Systolic BP Diastolic Pulse Ox 98 03/18/25 03:07 03/18/25 03:07 03/18/25 03:40 Temperature Temperature Source Pulse Rate 101 H Respiratory Rate Blood Pressure 129/85 H 122/76 H BP Systolic 129 122 BP Diastolic 85 76 Pulse Ox 03/18/25 03:40 03/18/25 04:41 03/18/25 04:41 Temperature Temperature Source Pulse Rate 101 H 101 H Respiratory Rate Blood Pressure 129/74 H BP Systolic 129 BP Diastolic 74 Pulse Ox 03/18/25 04:41 03/18/25 04:41 03/18/25 04:46 Temperature Temperature Source Pulse Rate Respiratory Rate 16 Blood Pressure 131/79 H BP Systolic 131 BP Diastolic 79 Pulse Ox 100 03/18/25 04:46 03/18/25 04:46 03/18/25 04:46 Temperature Temperature Source Pulse Rate 102 H 99 Respiratory Rate Blood Pressure BP Systolic BP Diastolic Pulse Ox 100 03/18/25 04:46 03/18/25 04:51 03/18/25 04:51 Temperature Temperature Source Pulse Rate 115 H Respiratory Rate 16 Blood Pressure 131/80 H BP Systolic 131 BP Diastolic 80 Pulse Ox 03/18/25 04:51 03/18/25 04:51 03/18/25 04:51 Temperature Temperature Source Pulse Rate 102 H Respiratory Rate 16 Blood Pressure BP Systolic BP Diastolic Pulse Ox 100 03/18/25 04:52 03/18/25 04:52 03/18/25 04:54 Temperature Temperature Source Pulse Rate 101 H Respiratory Rate Blood Pressure 131/77 H BP Systolic 131 BP Diastolic 77 Pulse Ox 92 03/18/25 04:54 03/18/25 04:56 03/18/25 04:56 Temperature Temperature Source Pulse Rate 88 96 Respiratory Rate Blood Pressure 132/77 H BP Systolic 132 BP Diastolic 77 Pulse Ox 03/18/25 04:58 03/18/25 04:58 03/18/25 05:01 Temperature Temperature Source Pulse Rate 96 Respiratory Rate Blood Pressure 127/71 H BP Systolic 127 BP Diastolic 71 Pulse Ox 100 03/18/25 05:01 03/18/25 05:01 03/18/25 05:01 Temperature Temperature Source Temporal Pulse Rate 97 Respiratory Rate 16 Blood Pressure BP Systolic BP Diastolic Pulse Ox 03/18/25 05:01 03/18/25 05:03 03/18/25 05:03 Temperature 97.1 F L Temperature Source Pulse Rate 99 Respiratory Rate Blood Pressure BP Systolic BP Diastolic Pulse Ox 100 03/18/25 05:05 03/18/25 05:05 03/18/25 05:08 Temperature Temperature Source Pulse Rate 106 H 109 H Respiratory Rate Blood Pressure 125/71 H BP Systolic 125 BP Diastolic 71 Pulse Ox 03/18/25 05:08 03/18/25 05:12 03/18/25 05:12 Temperature Temperature Source Pulse Rate 100 Respiratory Rate Blood Pressure 115/68 BP Systolic 115 BP Diastolic 68 Pulse Ox 100 03/18/25 05:12 03/18/25 05:13 03/18/25 05:13 Temperature Temperature Source Pulse Rate 96 Respiratory Rate 16 Blood Pressure BP Systolic BP Diastolic Pulse Ox 100 03/18/25 05:18 03/18/25 05:18 03/18/25 05:18 Temperature Temperature Source Pulse Rate 102 H 91 Respiratory Rate Blood Pressure 109/62 BP Systolic 109 BP Diastolic 62 Pulse Ox 03/18/25 05:18 03/18/25 05:22 03/18/25 05:22 Temperature Temperature Source Pulse Rate 104 H Respiratory Rate Blood Pressure 114/57 L BP Systolic 114 BP Diastolic 57 Pulse Ox 100 03/18/25 05:23 03/18/25 05:23 03/18/25 05:28 Temperature Temperature Source Pulse Rate 114 H 100 Respiratory Rate Blood Pressure BP Systolic BP Diastolic Pulse Ox 100 03/18/25 05:28 03/18/25 05:32 03/18/25 05:32 Temperature Temperature Source Pulse Rate 76 Respiratory Rate Blood Pressure BP Systolic BP Diastolic Pulse Ox 100 94 03/18/25 05:33 03/18/25 05:33 03/18/25 05:38 Temperature Temperature Source Pulse Rate 79 75 Respiratory Rate Blood Pressure BP Systolic BP Diastolic Pulse Ox 95 03/18/25 05:38 03/18/25 05:42 03/18/25 05:42 Temperature Temperature Source Pulse Rate 101 H Respiratory Rate Blood Pressure 126/77 H BP Systolic 126 BP Diastolic 77 Pulse Ox 96 03/18/25 05:50 03/18/25 05:50 03/18/25 05:55 Temperature Temperature Source Pulse Rate 138 H 92 Respiratory Rate Blood Pressure BP Systolic BP Diastolic Pulse Ox 100 03/18/25 05:55 03/18/25 06:18 03/18/25 06:18 Temperature Temperature Source Pulse Rate 118 H Respiratory Rate Blood Pressure BP Systolic BP Diastolic Pulse Ox 99 100 03/18/25 06:23 03/18/25 06:23 Temperature Temperature Source Pulse Rate 121 H Respiratory Rate Blood Pressure BP Systolic BP Diastolic Pulse Ox 100 Weight Weight: 167 lb 12.348 oz Body Mass Index (BMI) 32.8 Physical Exam Const alert, oriented x3 and no apparent distress General Appearance: cooperative Orientation / Consciousness: awake HEENT normocephalic Neck full ROM Lymph Lymphatic: no lymphadenopathy noted Chest inspection of chest normal Resp normal respiratory effort and normal air movement Effort and Inspection: able to speak in complete sentences and symmetric chest movement GI soft to palpation and non-tender Inspection: gravid Palpation: soft; Negative for tender external exam normal Back/Spine normal to inspection Extremity normal to inspection and full ROM Skin no rashes or lesions noted Psych mental status grossly normal Appearance: grossly normal Speech: normal speech Labs Labs Labs: Blood Type O POSITIVE Antibody Screen NEGATIVE Hct 31.2 % (37-47) L Hgb 10.1 g/dL (12.0-15.0) L Pap Smear Negative Syphilis Total Ab Nonreactive (Nonreactive) Rubella IgG Antibody Reactive (Nonreactive) Hep Bs Antigen Non-Reactive (Nonreactive) Hepatitis C Antibody Non-Reactive (Nonreactive) Chlamydia DNA (SHEN) Negative (Negative) N.gonorrhoeae DNA (SHEN) Negative (Negative) HIV 1&2 Antibody Nonreactive (Nonreactive) Glucose 1 Hr 50 gm 116 mg/dL (70-140) Assessment & Plan (1) Active labor: PLAN: Patient presents IAL, plan expectant management for , pitocin/AROM PRN if needed. Pain management: plans epidural. GBS neg. Management of any complications: none I have reviewed the [facility] and made any clinically relevant updates. Dr Taveras aware of assessment and plan. agrees with admission. (2) Anemia affecting : QUALIFIERS: Trimester: third trimester Qualified Code(s): O99.013 - Anemia complicating , third trimester COMMENT: PO iron:was not taking vitamin due to nausea. Will take Fe in Am and a gummy PNV in evening. (3) Exposure to parvovirus: COMMENT: immunity. 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 follow up growth at 32 weeks. (5) History of gestational hypertension: COMMENT: baby ASA recommended. baseline labs. (6) Supervision of high-risk : QUALIFIERS: Trimester: third trimester Qualified Code(s): O09.93 - Supervision of high risk , unspecified, third trimester COMMENT: [id number], PERLA 03/17/25, [facility]: Kia, : Markos (7) : QUALIFIERS: Weeks of gestation: 40 weeks Qualified Code(s): Z3A.40 - 40 weeks gestation of COMMENT: GBS negative. NIPT low risk, anatomy reviewed (8) Asthma: COMMENT: Childhood Charges/Coding Multi Select Codes Urinary/Genital Urinary/Genital CPT Codes: No Charge
[2025-03-18] MEDS: Oxytocin 15 Units/NS 250ml 15 UNITS/250 ML IV.SOLN 334 UNITS IV (07:24)
[2025-03-18] MEDS: Oxytocin 15 Units/NS 250ml 15 UNITS/250 ML IV.SOLN 83 UNITS IV (08:00)
--- NOTE | 2025-03-18 08:31 | EX.PCM.OBVAG ---
Assessment & Plan (1) Active labor: (2) Anemia affecting : QUALIFIERS: Trimester: third trimester Qualified Code(s): O99.013 - Anemia complicating , third trimester COMMENT: PO iron:was not taking vitamin due to nausea. Will take Fe in Am and a gummy PNV in evening. (3) Exposure to parvovirus: COMMENT: immunity. 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 follow up growth at 32 weeks. (5) History of gestational hypertension: COMMENT: baby ASA recommended. baseline labs. (6) Supervision of high-risk : QUALIFIERS: Trimester: third trimester Qualified Code(s): O09.93 - Supervision of high risk , unspecified, third trimester COMMENT: [id number], PERLA 03/17/25, [facility]: Kia, : Markos (7) : QUALIFIERS: Weeks of gestation: 40 weeks Qualified Code(s): Z3A.40 - 40 weeks gestation of COMMENT: GBS negative. NIPT low risk, anatomy reviewed (8) Asthma: COMMENT: Childhood Maternal Data Information PERLA Calculator Estimated Delivery Date Method Current WG Current Estimate 03/17/25 LMP (Certain) 40w 1d Other Estimates 03/18/25 Ultrasound #1 40w 0d Vaginal Delivery Maternal Presentation Maternal Presentation: see assessment and plan Vaginal Delivery Information Procedure Performed: Vacuum Assisted Vaginal Delivery Station at time of placement: +1 Number of vacuum pulls: 2 Number of vacuum pop offs: 1 Length of time vacuum on: 03:00 Surgeon/Practitioner: Thelma Taveras Date of Procedure: 03/18/25 Type of anesthesia: Epidural Estimated Blood Loss: 300 Findings Description of procedure: Patient began pushing and bradycardia develops after having had recurrent varibles, so deciison for vacuum delivery was made. vacuu applie [place] +1 station and pulled, was at +4 with a pop off, re applied and delivered the head in the ZOË presentation. The head was delivered atraumatically . The shoulders were malrotated which was manually corrected and then the anterior and posterior shoulders delivered without complication followed by the rest of the and the was placed on the maternal abdomen. Delayed cord clamping was employed for approximately 60 seconds. Cord was clamped and cut and gentle traction was applied to the cord and the placenta delivered spontaneously immediately following it was noted to be intact with three-vessel cord. The perineum and vagina were inspected and was noted to have a first -degree laceration that was repaired in the usual fashion with 3-0 vicryl rapide . EBL was 300. Patient and tolerated delivery well. Presentation: Vertex Placental Delivery Description: Spontaneous Specimen collected: Yes Description of specimen(s) removed: placenta Motion Picture Photographer funeral location manager: No Post Vaginal Deli Medications given after delivery: Other (pitocin) Complication Complications: No Multi Select Codes Urinary/Genital Urinary/Genital CPT Codes: 78032 Vaginal Delivery+ PP Care([facility])
--- NOTE | 2025-03-18 08:35 | DCINST_ITS ---
Discharge Instructions DC O2, CPAP, BIPAP needs Home O2 Discharge instructions: No Dressing / Incision Discharge Activity: Return to Normal Activity, May Not Drive (while taking narcotic pain medications.) and May Shower May resume sexual activity in: 4-6 weeks Dressing / Incision Call your doctor if your incision/area has: Continuous Slow Oozing, Sudden Increased Bleeding, Increased Pain/ Swelling, Increased Redness and Foul Smelling Discharge Follow Up Care Please Follow Up With: Thelma Taveras MD When: Call [phone] to make an appointment with your doctor in 6 weeks. If you had elevated blood pressure or 4th degree laceration, you will need to be seen in 2 weeks. Test Results: Test results from this visit will be discussed in further detail at your follow- up appointment, if applicable. Discharge Plan Admission Admit Date/Time: 03/18/25 03:31 Attending Provider: Thelma Taveras Consulting Providers: Vibha Casillas
[2025-03-19] VITALS (7 sets, daily range): BP systolic 108–121; BP diastolic 68–75; PULSE 83–96; RESP 16–17; TEMP 36.3–36.4; O2SAT 99
--- NOTE | 2025-03-19 14:32 | PCM.PN.OB ---
Subjective Subjective Patient doing well without complaints. Tolerating PO. Ambulating and voiding without difficulty. feeding well. Denies chest pain, shortness of breath, calf pain/swelling, fevers, chills, lightheadedness. Objective Data Objective Data Vital Signs: Vital Signs Temp Pulse Resp BP Pulse Ox O2 Del Method 97.6 F L 96 16 121/74 H 99 Room Air 03/19/25 13:24 03/19/25 13:24 03/19/25 13:24 03/19/25 13:24 03/19/25 13:24 03/19/25 13:24 Oxygen Delivery Method Room Air Weight: 167 lb 12.348 oz Body Mass Index (BMI) 32.8 Intake & Output: Intake and Output for Last 24 Hours 03/17/25 03/18/25 03/19/25 23:59 23:59 23:59 Intake Total 2500.00 / 2500.00 Output Total 700 / 700 Balance 1800.00 / 1800.00 Lab / Micro Data 03/18/25 03:45 ROS Constitutional Constitutional: Reports systems reviewed and no addt'l complaints, except as documented Cardiovascular Cardiovascular: Reports systems reviewed and no addt'l complaints, except as documented Respiratory/Chest Respiratory/Chest: Reports systems reviewed and no addt'l complaints, except as documented Gastrointestinal Gastrointestinal: Reports systems reviewed and no addt'l complaints, except as documented Physical Exam Const alert, oriented x3 and no apparent distress HEENT Head and Scalp: atraumatic Resp normal respiratory effort GI soft to palpation and non-tender Bimanual Exam - Vag & Uterus: uterus non-tender Uterus Palpation: uterus fundus firm (below Umbilicus) Assessment & Plan (1) Vacuum extractor delivery, delivered: COMMENT: vavd ial 39 [place] PLAN: Plan s/p PPD # 1 1. routine post delivery care 2. breast feeding- support given 3. rh positive 4. rubella immune
--- NOTE | 2025-03-19 15:12 | CASEMGMT ---
Labor and Delivery Brief Social Work Note Date of Referral: 03/18/25 Time of referral: 0402 Referral source: Vibha Casillas Date of intervention: 03/19/25 Time of intervention: 1220 Reason for referral: father of patient alcoholic Sw presented to bedside and introduced self to mother of baby (MOB- Nissa) and father of baby (FOB- Martin). Sw explained sw role and completed psychosocial assessment. Parents have been together for 10 years, now for seven after meeting each other through a friend. [place] baby is their second child together. No concerns reported of domestic violence or intimate partner violence. 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 ISAIAS is a stay at home mom. [place] baby was born on [birth year] at 40 weeks gestation via vaginal delivery. Baby, named Janelle, weighed 8lb 3oz and had apgars of 8 and 9 at one and five minutes of life, respectfully. ISAIAS is breast feeding and reports he will be followed by pediatrics in [facility]. Janelle has an older brother at home, Kia who is 3 years old. Parents deny any housing concern- reporting their house is safe and secure. Both parents drive and have reliable transportation, natural supports in place and all necessary baby items. Parents deny mental health history or linkage to any community resources that assist them financially. Parents deny substance use prior to and during , and when discussing family history of addiction both parents deny family history of, although that is what social work consult was for. Wilmar educated parents on signs and symptoms of baby blues and depression and anxiety, along with ABCs of safe sleep and shaken baby prevention. Parents express understanding. ISAIAS reports that she did really well mentally after her first son was born, and denies experiencing any symptoms. ISAIAS states that she is feeling well post delivery and is excited to be able to be discharged today. Parents were observed to hold baby appropriately and lovingly as well as appeared to be supportive of one another. Parents answered questions but did not elaborate at length with answers. No other needs or concerns at this time. Wilmar provided parents with educational handouts on: Help Me Grow, and baby blues signs and symptoms, pending sale to [facility] list of resources, shaken baby prevention and ABCs of safe sleep. Huseyin Ortega, STEREOPTICIAN, GENERAL FOUNDRY WORKER
== END 2025-03-19 14:50 | disposition home or self-care (01) | DRG 560 ==
LOC: WPOUT 03:37 → WP 03:37
PROVIDERS: Advanced Practice Midwife; Admitting Provider Obstetrics & Gynecology; Referring Provider Obstetrics & Gynecology; Visit Provider Obstetrics & Gynecology
DX: O99.02 Anemia complicating childbirth (principal); Z37.0 Single live birth; O28.3 Abnormal ultrasonic finding on antenatal screening of mother; O70.0 First degree perineal laceration during delivery; O76 Abnormality in fetal heart rate and rhythm complicating labor and delivery; Z3A.40 40 weeks gestation of pregnancy; Z87.59 Personal history of other complications of pregnancy, childbirth and the puerperium
CPT/HCPCS: 59025; 59050; 84112; 85025; 86780; 86850; 86900; 86901; 99221; G0378; J2405